=== PATIENT | male | born 1960 | race Caucasian/White ===

== ENCOUNTER → 2017-09-14 14:57 | Outpatient (POV) | payer BC, SELFPAY | PROVIDERS: Family Provider Family Medicine; Visit Provider Internal Medicine | DX: Z00.00 Encounter for general adult medical examination without abnormal findings (principal) ==

== ENCOUNTER → 2017-10-21 13:15 | Outpatient (CLI) | payer BC, SELFPAY ==
--- NOTE | 2017-10-21 13:21 | CT_ITS ---
CT lung screening EXAM: CT LUNG LOW DOSE WO CONTRAST HISTORY: 56-year-old male with 50 pack-year smoking history asymptomatic ITS.REASON: NICOTINE DEPENDENCE ORDERING PHYSICIAN: Tony Espino MD PATIENT AGE: 56 years COMPARISON: None TECHNIQUE: The exam was performed on a GE Light Speed [address] scanner using 2.90 mGy CTDI. A low dose helical CT CHEST was performed on a multi-detector scanner. All CT scans at the facility use one or more dose reduction, viz: automated exposure control; ma/kV adjustment per patient size (including targeted exams where dose is matched to indication; i.e. head); or iterative reconstruction technique. The LDCT was performed in a facility that meets the criteria for the screening program. Data regarding this exam was submitted to ACR which is an approved registry. The order for this exam indicates that it came as a result of a lung cancer screening counseling shard decision-making visit that included all the elements required of such a visit including smoking cessation. The radiologist interpreting this exam meets the CMS criteria for the LDCT lung cancer screening program. The exam is reported using the Lung-RADS classification scale and reported to the ACR registry. NOTE: This study was performed for the specific purposes of lung cancer screening and is not an alternative to diagnostic chest CT. RADIATION DOSE: CTDI vol(CT dose Index-volume) = 2.90mG DLP (Dose Length Product) = 122.72 mGcm FINDINGS: Centrilobular and paraseptal is present with its changes are present. Biapical fibrotic changes are noted. 3 mm nodular density left upper lobe unchanged. 3 mm fissural nodule along the left unchanged. No suspicious nodules infiltrates or effusions. There are coronary artery calcifications. Upper abdominal images show multiple isodensity is of the liver which may be due to cyst unchanged there is some increased density in the gallbladder which may be swelling than sludge and may be better evaluated with ultrasound if clinically warranted IMPRESSION: 1. Lung RADS Category: 2, benign 2. Other findings: Paraseptal and centrilobular emphysema with scattered areas of fibrosis, coronary artery disease, possible cholelithiasis RECOMMENDATIONS: 12 month LDCT follow-up
[2017-10-21 14:25] VITALS: PULSE 77
== END ==
PROVIDERS: Family Provider Family Medicine; PCP Family Medicine; Visit Provider Internal Medicine
DX: Z87.891 Personal history of nicotine dependence (principal); Z12.2 Encounter for screening for malignant neoplasm of respiratory organs; J42 Unspecified chronic bronchitis; F17.210 Nicotine dependence, cigarettes, uncomplicated
CPT/HCPCS: 94060; 94640

== ENCOUNTER → 2018-02-01 14:21 | Outpatient (POV) | payer BC, SELFPAY | PROVIDERS: Family Provider Family Medicine; PCP Family Medicine; Visit Provider Internal Medicine | DX: Z00.00 Encounter for general adult medical examination without abnormal findings (principal) ==

== ENCOUNTER → 2018-03-11 14:15 | Outpatient (CLI) | payer BC, SELFPAY ==
--- NOTE | 2018-03-11 14:22 | XR_ITS ---
EXAM: XR cervical spine 5V HISTORY: Neuropathy ITS.REASON: SYSTEMIC LUPUS ERYTHEMATOSUS ORDERING PHYSICIAN: Jovita Nugent MD PATIENT AGE: 57 years COMPARISON: None FINDINGS: There is slight reversal of the cervical lordosis which may be due to patient positioning or muscle spasm. There is 2 mm anterolisthesis of C3 on C4. Prominent anterior bridging osteophytes are present at C4, C5, C6, C7, and T1 consistent with DISH. Mild degenerative disc disease is present from C3 to T1. Uncovertebral hypertrophy is present with foraminal narrowing on the right at C5-C6 and on the left from C3 to T1. There are old fractures involving the anterior aspect of the right first and second ribs. No lytic or blastic change. No fracture or dislocation. IMPRESSION: Degenerative disc disease with uncovertebral arthrosis and foraminal narrowing. DISH of the cervical spine
== END ==
PROVIDERS: PCP Family Medicine; Visit Provider Family Medicine
DX: M32.9 Systemic lupus erythematosus, unspecified (principal)
CPT/HCPCS: 72050

== ENCOUNTER → 2018-03-21 08:59 | Outpatient (POV) | payer BC, SELFPAY | PROVIDERS: Visit Provider Specialist | DX: R29.898 Other symptoms and signs involving the musculoskeletal system (principal) | CPT/HCPCS: 95886; 95910 ==

== ENCOUNTER → 2018-08-15 12:59 | Outpatient (POV) | payer BC, SELFPAY | PROVIDERS: Visit Provider Internal Medicine | DX: Z00.00 Encounter for general adult medical examination without abnormal findings (principal) ==

== ENCOUNTER → 2018-10-21 13:23 | Outpatient (CLI) | payer BC, SELFPAY ==
--- NOTE | 2018-10-21 13:28 | CT_ITS ---
CT lung screening EXAM: CT LUNG LOW DOSE WO CONTRAST HISTORY: 40 pack-year smoking history, asymptomatic for lung cancer ITS.REASON: H/O NICOTINE DEPENDENCE ORDERING PHYSICIAN: Tony Espino MD PATIENT AGE: 57 years COMPARISON: 10/21/2017 TECHNIQUE: The exam was performed on a GE Light Speed [address] scanner using 2.90 mGy CTDI. A low dose helical CT CHEST was performed on a multi-detector scanner. All CT scans at the facility use one or more dose reduction, viz: automated exposure control, ma/kV adjustment per patient size (including targeted exams where dose is matched to indication, i.e. head), or iterative reconstruction technique. The LDCT was performed in a facility that meets the criteria for the screening program. Data regarding this exam was submitted to ACR which is an approved registry. The order for this exam indicates that it came as a result of a lung cancer screening counseling shard decision-making visit that included all the elements required of such a visit including smoking cessation. The radiologist interpreting this exam meets the CMS criteria for the LDCT lung cancer screening program. The exam is reported using the Lung-RADS classification scale and reported to the ACR registry. NOTE: This study was performed for the specific purposes of lung cancer screening and is not an alternative to diagnostic chest CT. RADIATION DOSE: CTDI vol(CT dose Index-volume) = 2.90mG DLP (Dose Length Product) = 118.81 mGcm FINDINGS: Paraseptal and centrilobular emphysema with COPD. Scattered areas of parenchymal scarring once again noted. There are coronary artery calcifications. No suspicious nodules are evident. No central obstructing lesions.. There are multiple isodense areas of the liver which may be due to cysts. The largest area noted on the previous exam is no longer apparent which was in the left hepatic lobe and measures 1.6 cm. Other smaller isodense regions are stable. IMPRESSION: 1. Lung RADS Category: 2, benign 2. Other findings: COPD, centrilobular paraseptal emphysema, coronary artery disease, hepatic cysts RECOMMENDATIONS: 12 month LDCT follow-up
== END ==
PROVIDERS: PCP Family Medicine; Visit Provider Internal Medicine
DX: Z12.2 Encounter for screening for malignant neoplasm of respiratory organs (principal); Z87.891 Personal history of nicotine dependence

== ENCOUNTER → 2019-09-20 12:50 | Outpatient (CLI) | payer BC, SELFPAY ==
--- NOTE | 2019-09-20 12:58 | CA_ITS ---
APPROVED REPORT Right Lower Extremity Venous Study for DVT. Oyster Farmer: JOE MataT Indications Lower Extremity Pain: Right Lower Extremity Edema: Right Pt had rt knee replaced early September, incision is not healing,Pt has lupus Risk Factors Current Smoker Vein Imaging CFV (R): compressive, spontaneous, phasic, augmentation FEM (R): compressive, spontaneous, phasic, augmentation POP (R): compressive, spontaneous, phasic, augmentation PTV (R): Compressible, Compressible GSV (R): Compressible Peroneals (R):Compressible GAS (R): Compressible Conclusion Study suggests no evidence of DVT of the right lower extremity. Study suggests no evidence of SVT of the right lower extremity. 3.6 cm lymph node seen right groin. Electronically signed by : Yung Almodovar MD 09/20/2019 16:34:05
== END ==
PROVIDERS: PCP Family Medicine; Visit Provider Family Medicine
DX: M79.604 Pain in right leg (principal)
CPT/HCPCS: 93971

== ENCOUNTER → 2020-08-14 13:59 | Outpatient (CLI) | payer MEDICARE, BC, SELFPAY | PROVIDERS: PCP Family Medicine; Visit Provider Urology | DX: F17.200 Nicotine dependence, unspecified, uncomplicated (principal); I50.9 Heart failure, unspecified; J44.9 Chronic obstructive pulmonary disease, unspecified; K21.9 Gastro-esophageal reflux disease without esophagitis; R00.0 Tachycardia, unspecified; R00.2 Palpitations; R06.00 Dyspnea, unspecified | CPT/HCPCS: 93270 ==

== ENCOUNTER → 2020-08-22 10:41 | Outpatient (CLI) | payer MEDICARE, BC, SELFPAY ==
--- NOTE | 2020-08-22 10:43 | CA_ITS ---
APPROVED REPORT EXAM: Comprehensive 2D, Doppler, and color-flow Echocardiogram Manager Plan: Aida Mackenzie RVT Ht: 6 ft 1 in Wt: 186lbs BSA: 2.09 BP: 147/81 mmHg Indications: SOA,CHF,GERD.SMOKER.ANDERSON,PALPS,COPD,TACHYCARDIA 2D Dimensions LVOT 2.10 cm (M/F) 1.5-2.5 LA Volume 18.50 mL LA Volume Index 8.89 mL/m2 (M/F) 16-34 M-Mode Dimensions RVDd 2.11 cm (0.9-2.6) LA Diam 3.39 cm (1.9-4.0) LVDd 4.43 cm (3.5-5.7) Ao Diam 3.10 cm (2.0-3.7) LVDs 3.11 cm (3.5-5.7) IVSd 1.75 cm (0.6-1.1) PWd 0.61 cm (0.6-1.1) EF (Teich) 57.10% FS 29.80% EDV (Teich) 89.10 mL ESV (Teich) 38.20 mL LV Diastology E Decel Time 203.00 (160-240 msec) E/A Ratio 0.8 MED E' 6.60 (< 7 cm/sec) E'/MED E' Ratio 10.14 (>14) LAT E' 8.50 (<10 cm/sec) E/LAT E' Ratio 7.87 (>14) Mitral Valve MV E Max Shalom. 67.00 (40-130 cm/s) MV A Velocity 85.00 (40-130 cm/s) E/A Ratio 0.79 MV Decel. Time 203.00 (160-240 ms) MV PHT 60.00 ms Pulmonary Valve PV Peak Velocity 95.00 (50-150 cm/s) Tricuspid Valve TR P. Velocity 207.00 cm/s RAP Estimate 10.00 mmHg RVSP 27.10 mmHg Left Ventricle Left atrium is mildly enlarged, left ventricle is normal size, mild concentric left ventricular hypertrophy, visually estimated ejection fraction 55% with no regional wall motion abnormality, grade 1 diastolic dysfunction seen without tissue Doppler evidence of raise left atrial pressure. Right Ventricle Right atrium and right ventricle are normal size and contractility. Aortic Valve Aortic valve is minimally thickened and fibrosed, there is no aortic stenosis or aortic insufficiency. Mitral Valve Mitral valve is grossly normal, there is trace mitral regurgitation. Tricuspid Valve Tricuspid grossly normal, there is trace tricuspid regurgitation, tricuspid regurgitation jet velocity is inadequate for calculation of the right ventricular systolic pressure. Pulmonic Valve Pulmonic valve is poorly visualized. Great Vessels Aortic root is normal size. Pericardium No significant pericardial effusion noted. Conclusion 1. Normal left ventricular size, mild concentric left ventricular hypertrophy, visually estimated ejection fraction 55% with no regional wall motion abnormality, grade 1 diastolic dysfunction seen without tissue Doppler evidence of raise left atrial pressure. 2. Trace mitral and tricuspid regurgitation. 3. No significant pericardial effusion noted. Electronically signed by : Tej Garcia, 08/22/2020 15:29:07
--- NOTE | 2020-08-22 11:15 | NM_ITS ---
APPROVED REPORT Exam: Nuclear Stress Test Indication: CHF, COPD, TOB USE, TACHYCARDIA, PALPITATIONS, DYSPNEA, FATIGUE Patient Location: Outpatient Stress Tech: Shannan Tavaresnkson [place] Tech:BRE Salmon RT(R)(N) Ht: 6 ft 1 in Wt: 192 lbs HR: 92 bpm BP: 128/81 mmHg BSA: 2.11 m2 BMI: 25.3 History: CHF, COPD, TOB USE, TACHYCARDIA, PALPITATIONS, DYSPNEA, FATIGUE Procedure: Patient received a 0.4 mg of intravenous Lexiscan, resting heart rate 92 bpm, resting blood pressure 128/81 mmHg, with Lexiscan maximum heart rate achived was 104 bpm which is Less than 85 % of the maximum predicted heart rate and blood pressure was 133/78 mmHg. With Lexiscan, patient denied any complaint of chest pain. Electrocardiogram Resting electrocardiogram shows sinus rhythm nonspecific ST-T changes, with Lexiscan there is less than 1.[address] segment depression noted from the baseline EKG. The EKG portion of the Lexiscan is nondiagnostic. Cardiac Stress and Resting SPECT Images: Cardiac Stress and Resting SPECT images were obtained using technetium 99m Myoview 32.9 mCi stress and 11.23 mCi at rest. Gated SPECT for analysis of segmental wall motion and calculation of the ejection fraction also done, prone images were also obtained. Cardiac stress and resting SPECT images show uniform myocardial activity without segmental perfusion abnormality, computer derived ejection fraction is 56% with no regional wall motion abnormality, right ventricle is normal size and contractility. Conclusion: 1. The EKG portion of the Lexiscan is nondiagnostic. 2. No scintigraphic evidence of reversible ischemia seen, computer derived ejection fraction 56% with no regional wall motion abnormality, right ventricle is normal size and contractility. 3. Normal Lexiscan Myoview study. Electronically signed by : Tej Garcia, 08/22/2020 15:43:48
--- NOTE | 2020-08-22 13:10 | CA_ITS ---
APPROVED REPORT Exam: Pharmacologic Technologist: Stephie Dickerson, Ht: 6 ft 1 in Wt: 184 lbs BSA: 2.08 m2 HR: 92 bpm BP: 128/81 mmHg Rhythm: NSR Indications: SOA, CHF Medical History Medical History: HTN, Smoking Medications: Lorazepam,,,,, Omeprazole,,,,, Spiriva,,,,, Gabapentin,,,,, Albuterol,,,,, Ibuprofen,,,,, Hydroxychloroquine,,,,, NifEDIPINE,,,,, Furosemide,,,,, Allergies: No known drug allergies Cardiac Risk Factors: FHX of CAD, Smoking Stress Test Details Test: LEXISCAN HR Resting HR: 93 bpm Max Heart Rate (APMHR): 159.201865 bpm Max HR Achieved: 106 bpm Target HR (85% APMHR): 135.979390 bpm % of APMHR: 66.67 Recovery HR: 93 bpm BP Resting BP: 128/81 mmHg Max BP: 137/83 mmHg Recovery BP: 132.0/74.0 mmHg ECG Clinical Exercise duration: 04:01 min Highest Stage Achieved: Stress ECG Conclusion PT BECAME SOA, MALAISE, AND GOT A TOBIN. NO CP. NO ARRHYTHMIAS. NO SIGNIFICANT ST-T CHANGES. UNREMARKABLE LEXISCAN STRESS. MYOVIEW IMAGES REPORTS SEPARATELY. Electronically signed by : Tej Garcia, 08/22/2020 15:39:35
== END ==
PROVIDERS: PCP Family Medicine; Visit Provider Urology
DX: F17.200 Nicotine dependence, unspecified, uncomplicated (principal); I50.9 Heart failure, unspecified; J44.9 Chronic obstructive pulmonary disease, unspecified; K21.9 Gastro-esophageal reflux disease without esophagitis; R00.0 Tachycardia, unspecified; R00.2 Palpitations; R06.00 Dyspnea, unspecified
CPT/HCPCS: 78452; 93017; 93306; A9502; J2785

== ENCOUNTER → 2020-12-12 07:17 | Outpatient (CLI) | payer MEDICARE, BC, SELFPAY ==
--- NOTE | 2020-12-12 07:17 | CT_ITS ---
PROCEDURE: CT LUNG SCREENING CLINICAL INDICATION: lung cancer screening Current smoker 30 pack year smoking history COMPARISON: CR,CT LUNGSCREEN CT lung screening from 10/21/[address] lung screening from 10/21/2018 CT PE PROTOCOL (ANGIO CHEST) from 04/25/2020 TECHNIQUE: The exam was performed on a [employer] Speed [address] scanner using 2.90 mGy CTDI. A low dose helical CT CHEST was performed on a multi-detector scanner. All CT scans at the facility use one or more dose reduction, viz: automated exposure control, ma/kV adjustment per patient size (including targeted exams where dose is matched to indication, i.e. head), or iterative reconstruction technique. The LDCT was performed in a facility that meets the criteria for the screening program. Data regarding this exam was submitted to ACR which is an approved registry. The order for this exam indicates that it came as a result of a lung cancer screening counseling shard decision-making visit that included all the elements required of such a visit including smoking cessation. The radiologist interpreting this exam meets the CMS criteria for the LDCT lung cancer screening program. The exam is reported using the Lung-RADS classification scale and reported to the ACR registry. NOTE: This study was performed for the specific purposes of lung cancer screening and is not an alternative to diagnostic chest CT. RADIATION DOSE: CTDI vol(CT dose Index-volume) = 2.90mG DLP (Dose Length Product) = 120.89 mGcm FINDINGS: COPD with scattered areas of scarring with paraseptal and centrilobular emphysema with scattered areas of scarring. No suspicious pulmonary nodule apparent. Scattered blebs are present which are slightly more prominent. No effusions or infiltrates. Previous outside exam demonstrated small bilateral effusions and interstitial edema which has resolved. OTHER FINDINGS: Coronary artery calcifications. There are scattered hepatic hypodensities suggesting hepatic cysts. IMPRESSION: Lung-RADS Category 2 Benign Appearance or Behavior Follow-up: Continue annual screening with LDCT in 12 months Dictated by: Yung Almodovar MD 12/16/2020 09:18 Yung Almodovar MD in [place] 12/16/2020 09:18
== END ==
PROVIDERS: PCP Family Medicine; Visit Provider Internal Medicine Pulmonary Disease
DX: Z87.891 Personal history of nicotine dependence (principal); Z12.2 Encounter for screening for malignant neoplasm of respiratory organs; R06.02 Shortness of breath
CPT/HCPCS: 71271; 94060; 94618; 94726; 94729

== ENCOUNTER → 2021-12-15 12:44 | Outpatient (CLI) | payer MEDICARE, BC, SELFPAY ==
--- NOTE | 2021-12-15 12:44 | CT_ITS ---
FINAL REPORT CLINICAL HISTORY: lung cancer screening 1.5ppd x40 years COMPARISON: 12/12/2020 FINDINGS: Low-Dose Chest CT CTDI vol (mGy): 2.90 DLP (mGy-cm): 107.59 Axial images were obtained from the lung apex to the mid abdomen by computed tomography. Low-dose protocol was utilized. FINDINGS: CHEST: There is no axillary adenopathy. There is no hilar or mediastinal adenopathy. There is severe coronary artery calcification. The heart is proper size. There is no pericardial or pleural effusion. Limited images of the upper abdomen demonstrate several less than 1 cm low-attenuation masses in the liver that cannot be accurately characterized but may represent small cysts. Lung window images demonstrate mild changes of emphysema and mild scarring. There is a 3 mm lateral left upper lobe nodule on image 29 that is stable. There is a stable 4 mm nodule in the lateral right upper lobe on image 25. There are several other less than 5 mm pulmonary nodules. IMPRESSION: S modifier: Severe coronary artery calcification. Lung RADS category 2S. Recommend 12 month follow-up low-dose chest CT. Reviewed, Interpreted and Dictated by Jw Li III, MD Transcribed by Priyank Chapman Authenticated and [facility]
== END ==
PROVIDERS: PCP Family Medicine; Visit Provider Internal Medicine Pulmonary Disease
DX: Z87.891 Personal history of nicotine dependence (principal); Z12.2 Encounter for screening for malignant neoplasm of respiratory organs
CPT/HCPCS: 71271

== ENCOUNTER → 2022-12-31 10:38 | Outpatient (CLI) | payer MEDICARE, SELFPAY ==
--- NOTE | 2022-12-31 10:39 | CT_ITS ---
FINAL REPORT CLINICAL HISTORY: lung cancer screening current smoker 2.5ppd x25 years COMPARISON: 12/15/2021 FINDINGS: CT CHEST LOW DOSE SCREENING HISTORY: Screening exam for lung cancer. Current smoker, 37 pack year smoking history DOSE: CTDIvol: 2.9 mGy, DLP: 106.55 mGy*cm COMPARISON: 12/15/2021. TECHNIQUE: Axial CT without IV contrast administration using low dose protocol FINDINGS: Dense coronary artery calcifications are again noted. Centrilobular emphysema is once again identified as well. There is a left upper lobe nodule seen best on axial image #28 of series 4, stable. There is a peripheral right upper lobe nodule that is slightly more linear than noted on the previous exam, a finding of uncertain significance. This may represent post inflammatory change. No pleural or pericardial effusion is seen . No adenopathy or mass lesion is present . IMPRESSION: Stable LDCT compared with prior exam of 2021. LUNG RADS CATEGORY 2S The S classification is given for severe coronary artery calcifications. RECOMMENDATION: 12 month LDCT follow up Reviewed, Interpreted and Dictated by Florin Clemens MD Transcribed by Kailee Weston Authenticated and [facility]
== END ==
PROVIDERS: PCP Family Medicine; Visit Provider Internal Medicine Pulmonary Disease
DX: Z87.891 Personal history of nicotine dependence (principal); Z12.2 Encounter for screening for malignant neoplasm of respiratory organs
CPT/HCPCS: 71271

== ENCOUNTER 2024-01-03 15:17 | Outpatient (CLI) | payer MEDICARE, SELFPAY ==
--- NOTE | 2024-01-03 15:18 | CT_ITS ---
FINAL REPORT TECHNIQUE: Thin section axial images were obtained from the lung apices to the upper abdomen by computed tomography. Reformatted images were obtained and reviewed. This study was performed with techniques to keep radiation doses al low as reasonably achievable (ALARA). Individualized dose reduction techniques using automated exposure control or adjustment of mA and/or kV according to the patient's size were employed. CLINICAL HISTORY: lung cancer screening smoker for 25 yrs, 2 packs per day h/o of lung cancer in first degree relative (brothers) COMPARISON: 12/31/2022 FINDINGS: CHEST CT LOW DOSE 63-year-old male, current smoker, 44-mbjt-cluj history CTDI vol (mGy): 2.9 DLP (mGy-cm): 115.94 There is no axillary adenopathy. There is no mediastinal or hilar mass or adenopathy. The heart is normal in size. Dense coronary artery calcifications are present. There is no pericardial or pleural effusion. There is mild emphysema and mild pulmonary scarring. Lung window images demonstrate a stable left upper lobe nodule best seen on image #33 of series 4. There is a new 7 mm x 4 mm ovoid nodule in the peripheral right upper lobe best seen on image #29 of series 4. Limited images of the upper abdomen are unremarkable. IMPRESSION: Lung-RADS category 4A, for the new nodule in the peripheral right upper lobe, 7 x 4 mm. Recommend 3 month follow up low dose chest CT. Reviewed, Interpreted and Dictated by Florin Clemens MD Transcribed by Kailee Weston Authenticated and . [facility]
== END 2024-01-03 23:59 | disposition home or self-care (01) ==
LOC: RAD 15:18
PROVIDERS: PCP Family Medicine; Visit Provider Internal Medicine Pulmonary Disease
DX: F17.210 Nicotine dependence, cigarettes, uncomplicated (principal)
CPT/HCPCS: 71271

== ENCOUNTER 2024-08-18 06:05 | Day surgery (SDC) | payer MEDICARE, SELFPAY ==
[2024-08-15 16:48] VITALS: BMI 23.1
[2024-08-18 06:35] VITALS: BP 134/75; PULSE 108; RESP 18; TEMP 36.7; O2SAT 98
--- NOTE | 2024-08-18 06:37 | EXP.GEN.HP ---
HPI HPI HPI: Patient is a 63-year-old male with history of COPD, continued smoking, GERD, congestive heart failure. He presents for surveillance colonoscopy. I performed previous EGD and colonoscopy on him on 08/27/2006 for abdominal symptoms. He had some hyperplastic polyps. I had done a an upper endoscopy on him on 12/06/2012 which was relatively unremarkable. He had colonoscopy on 01/03/2013 at which time random biopsies were negative, he had some diverticulosis, and he had some hyperplastic polyps. I performed colonoscopy on 10/12/2017. There were noted to be some minimal prolapsing hemorrhoids, diverticulosis, and polyps. Pathology revealed cecal tubular adenoma, ascending colon tubular adenoma x 2, descending colon tubular adenoma sigmoid colon, proximal, tubular adenoma, several rectosigmoid hyperplastic polyps. After this colonoscopy on 10/12/2017 recommendations were for follow-up colonoscopy in 2 to 3 years due to at least 5 adenomatous polyps. [facility] Disclaimer: The information contained in this section may have been updated after the patient was seen, as this information can be updated by other users. Medical History Paraseptal emphysema History of smoking 30 or more pack years COPD (chronic obstructive pulmonary disease) Dyspnea on exertion Screening for lung cancer Pulmonary emphysema Tobacco abuse disorder Tobacco abuse counseling Smoking greater than 30 pack years Chest pain Palpitations Tobacco dependence syndrome Sinus tachycardia Gastroesophageal reflux disease CHF (congestive heart failure) COPD (chronic obstructive pulmonary disease) Dyspnea Surgical History History of arthroscopic knee surgery Family History Other Cancer Social History Smoking Status: Current every day smoker tobacco type: cigarettes alcohol intake: never counseling provided: none substance use type: denies use current occupational status: retired and other Travel in the last 8 weeks: None caffeine: Yes Have you lived/traveled outside [place] in past 30 days?: No Contact w/someone who lives/traveled outside US past 30 days?: No Exposure to someone with infectious disease in past 14 days?: No Do you have a fever (greater than 100.4 F or 38 C)?: No Have you tested positive for COVID-19: No Exposed to someone with COVID-19 in past 14 days?: No Do you have a sore throat?: No Do you have a cough?: No Do you have any weakness?: No Do you have any diarrhea?: No Are you experiencing any unusual bleeding?: No Do you have any muscle aches/pain?: No Do you have any abdominal pain?: No Are you experiencing loss of taste or smell?: No Other Medical History Have you received the Flu Vaccine for this season: No Have you received the Pneumonia Vaccine: Yes Review of Systems Review of Systems Review of systems:: pertinent systems reviewed and negative unless documented below Meds Home Medications and Allergies Home Medications ?Medication ?Instructions ?Recorded ?Confirmed ?Type hydroxychloroquine 200 mg tablet 200 mg PO DAILY lupus 10/11/17 08/18/24 History furosemide 40 mg tablet 40 mg PO DAILY 08/14/20 08/18/24 History gabapentin 600 mg tablet 600 mg PO TID 08/14/20 08/18/24 History ibuprofen 800 mg tablet 800 mg PO Q8H PRN Pain 08/14/20 08/18/24 History lorazepam 0.5 mg tablet 0.5 mg PO TID PRN Anxiety 08/14/20 08/18/24 History nifedipine 30 mg tablet,extended 30 mg PO DAILY #30 tabs 08/14/20 08/18/24 Rx release 24 hr (Procardia XL) omeprazole 20 mg capsule,delayed 20 mg PO DAILY 08/14/20 08/18/24 History release New Prescriptions to Start Prescriptions: Allergies Allergy/AdvReac Type Severity Reaction Status Date / Time No Known Allergies Allergy Verified 08/18/24 06:33 Exam Data for Last 24 hours I & O for Last 24 hours: Intake & Output 08/15/24 08/16/24 08/17/24 08/18/24 11:59 11:59 11:59 11:59 Weight 175 lb Constitutional Constitutional: no acute distress *Routine HEENT Exam Head: Present normocephalic Eye: Present EOMI and PERRL ENT: Present mucous membranes moist *Routine Neck Exam Neck: Present supple; Absent lymphadenopathy *Routine Respiratory Exam Respiratory: Present CTA bilaterally *Routine Cardiovascular Exam Cardiovascular: Present RRR *Routine Abdominal Exam Abdominal: Present soft and normoactive bowel sounds; Absent tenderness *Routine Rectal Exam Rectal:: deferred *Routine Genitalia Exam Genitalia:: deferred *Routine Extremities Exam Extremities: Absent cyanosis, clubbing or edema *Routine Skin Exam Skin: Present warm; Absent rash *Routine Neurological Exam Neurological: Present alert and oriented X3 Assessment and Plan *Assessment and plan (1) Tubular adenoma of colon: Status: Acute Category: Medical Code(s): D12.6 - Benign neoplasm of colon, unspecified Plan Given his history of numerous adenomatous polyps on colonoscopy in 2018 plan to proceed with colonoscopy
--- NOTE | 2024-08-18 06:59 | EXP.ANES.CKL ---
[facility] Disclaimer: The information contained in this section may have been updated after the patient was seen, as this information can be updated by other users. Medical History Paraseptal emphysema History of smoking 30 or more pack years COPD (chronic obstructive pulmonary disease) Dyspnea on exertion Screening for lung cancer Pulmonary emphysema Tobacco abuse disorder Tobacco abuse counseling Smoking greater than 30 pack years Chest pain Palpitations Tobacco dependence syndrome Sinus tachycardia Gastroesophageal reflux disease CHF (congestive heart failure) COPD (chronic obstructive pulmonary disease) Dyspnea Surgical History History of arthroscopic knee surgery Family History Other Cancer Social History Smoking Status: Current every day smoker tobacco type: cigarettes alcohol intake: never counseling provided: none substance use type: denies use current occupational status: retired and other Travel in the last 8 weeks: None caffeine: Yes Have you lived/traveled outside [place] in past 30 days?: No Contact w/someone who lives/traveled outside [place] past 30 days?: No Exposure to someone with infectious disease in past 14 days?: No Do you have a fever (greater than 100.4 F or 38 C)?: No Have you tested positive for COVID-19: No Exposed to someone with COVID-19 in past 14 days?: No Do you have a sore throat?: No Do you have a cough?: No Do you have any weakness?: No Do you have any diarrhea?: No Are you experiencing any unusual bleeding?: No Do you have any muscle aches/pain?: No Do you have any abdominal pain?: No Are you experiencing loss of taste or smell?: No [facility] Anesthesia Checklist Patient Identification Patient Identification: Arm Band Structural Data Admitted From: Home Planned Operative Procedure/s: Colonscopy Verified Documents: Surgical Consent and History and Physical NPO Status Verified Time NPO: 00:00 Additional verifications Anesthesia Reactions: No Airway Assessment Mallampati Score:: Class II Neurological Assessment Level of Consciousness: Awake, Alert and Appropriate Hx Seizures: No Anesthesia Plan Anesthesia Risk discussed: Yes Anesthesia Plan: Verified ASA Class: II Anesthesia Type: MAC
[2024-08-18 07:04] VITALS: O2SAT 97
[2024-08-18 07:45] VITALS: BP 86/57; PULSE 100; RESP 16; TEMP 36.6; O2SAT 94
--- NOTE | 2024-08-18 07:45 | P.PCN_ITS ---
Procedure: Date: 08/18/24 Patient Date of :: 1960 Procedure Performed:: Total colonoscopy to terminal ileum with polypectomy using biopsy Indications:: Patient is a 63-year-old male with history of COPD, continued smoking, GERD, congestive heart failure. He presents for surveillance colonoscopy. I performed previous EGD and colonoscopy on him on 08/27/2006 for abdominal symptoms. He had some hyperplastic polyps. I had done a an upper endoscopy on him on 12/06/2012 which was relatively unremarkable. He had colonoscopy on 01/03/2013 at which time random biopsies were negative, he had some divertic ulosis, and he had some hyperplastic polyps. I performed colonoscopy on 10/12/2017. There were noted to be some minimal prolapsing hemorrhoids, diverticulosis, and polyps. Pathology revealed cecal tubular adenoma, ascending colon tubular adenoma x 2, descending colon tubular adenoma sigmoid colon, proximal, tubular adenoma, several rectosigmoid hyperplastic polyps. After this colonoscopy on 10/12/2017 recommendations were for follow-up colonoscopy in 2 to 3 years due to at least 5 adenomatous polyps. . Performing Provider:: Jw Mendez MD Referring Provider:: Ralph Nugent MD Sedation:: MAC sedation Procedure:: Patient history was obtained and appropriate physical examination was performed. Patient's medications and allergies were reviewed. Informed consent was obtained after explaining the benefits, alternatives, and risks of the procedure including, but not limited to, bleeding, perforation, missed lesions, and adverse reaction to anesthesia medications. Patient was transported to endoscopy procedure room. Patient was connected to monitoring devices. Throughout the procedure the patient's blood pressure, pulse, and oxygen saturations were monitored continuously. Patient i dentification and planned procedure were verified by the staff. Patient was positioned in lateral decubitus position. Digital anorectal exam was performed. Variable stiffness Olympus colonoscope was inserted and advanced under direct visualization to the cecum. Adequacy of the colonic preparation was noted. The colonoscope was advanced a short distance into the terminal ileum. The colonoscope was then slowly withdrawn while carefully examining the color, texture, anatomy, and integrity of the mucosoa circumferentially. Within the rectum retroflexion was performed. Colonoscope was then withdrawn. Impression: Colonic preparation was good. Ileocecal valve and appendiceal orifice were clearly identified. Terminal ileum normal. As the colonoscope was withdrawn he was noted to have some degree of pandiverticulosis. This is more pronounced in the sigmoid colon. The descending colon there was a punctate area of irregularity, likely inconsequential, removed with biopsy forceps. Just distal to this there was another punctate area which may represent early adenomatous polyp removed with biopsy forceps. In the rectosigmoid area there were a couple of diminutive polyps removed with biopsy forceps. There was a tiny diminutive polyp within the rectum removed with biopsy forceps. Retroflexion revealed some mild prolapsing internal hemorrhoids. . Findings:: Diverticulosis Tiny diminutive polyps as noted above Punctate area of erythema descending colon, likely inconsequential, biopsied Minimal prolapsing internal hemorrhoids Recommendations:: Repeat colonoscopy pending pathology Complications:: None immediately apparent Estimated blood obtained (mL): 1 Colonoscopy Component Colonoscopy Component Was a colonoscopy performed during today's procedure?: Yes Recommended follow up colonoscopy of at least 10 years?: No If no, follow up colonoscopy recommended in ___ years?: See above Reason for not recommending >/= 10 yr follow-up interval?: See above
[2024-08-18 07:55] VITALS: BP 103/56; PULSE 72; RESP 16; O2SAT 96
[2024-08-18 08:05] VITALS: BP 94/57; PULSE 68; RESP 16; O2SAT 97
[2024-08-18 08:15] VITALS: BP 98/46; PULSE 71; RESP 16; O2SAT 94
== END 2024-08-18 08:24 | disposition home or self-care (01) ==
PROVIDERS: PCP Family Medicine; Visit Provider Surgery
PROC: 0DJD8ZZ Inspection of Lower Intestinal Tract, Via Natural or Artificial Opening Endoscopic (ICD-10-PCS; CPT 45380; principal; 2024-08-18 07:30)
DX: K57.30 Diverticulosis of large intestine without perforation or abscess without bleeding (principal); K63.5 Polyp of colon; K62.1 Rectal polyp; K64.8 Other hemorrhoids; Z86.0101 Personal history of adenomatous and serrated colon polyps
CPT/HCPCS: 45380; J2704

== ENCOUNTER 2024-11-02 10:46 | Outpatient (CLI) | payer MEDICARE, SELFPAY ==
--- OUTSIDE RECORDS SUMMARY | 2024-09-25 10:01 | XMS_ITS | Encounter Summary ---
Author Organization [facility] Address [address] [place] [address] Care Team Providers Care Drilling Contractor Name Role Phone Dario Nugent MD Primary Care Provider [phone] Reason for Referral * Consultation (Routine) - New Request Specialty Diagnoses / Procedures Referred By Keiko archibald Referred To Contact Home Health Services Diagnoses Femur fracture, left (HCC) Mooes Granda MD [address] [facility] [address] [place] [address] Phone: tel: fax: Referral ID Status Reason Start Date Expiration Date Visits Requested Visits Authorized [id number] New Request Specialty Services Required 09/25/2024 09/25/2025 1 1 Reason for Visit * Auth/Cert (Routine) Specialty Diagnoses / Procedures Referred By Keiko archibald Referred To Contact Diagnoses Femur fracture, left (HCC) FRACTURE [facility] [address] [place] [address] Phone: tel: fax: [facility] [address] [place] [address] Phone: tel: fax: Referral ID Status Reason Start Date Expiration Date Visits Re quested Visits Authorized [id number] 1 1 Encounter Details Date Type Department Care Team (Late st Contact Info) Description 09/25/2024 10:01 AM EDT - 09/29/2024 5:45 PM EDT Hospital Encounter [facility] [address] [place] [address] Moose Granda MD [address] [place] [address] [phone] Johnny Stacy MD [address] [place] [phone] Sourav Corbett DO [address] [place] [id number] Femur fracture, left (HCC) (Primary Dx) Discharge Disposition: Retirement Facility Social History Tobacco Use Types Packs/Day Years Used Date Smoking Tobacco: Every Day Cigarettes Smokeless Tobacco: Never Alcohol Use Standard Drinks/Week Comments Yes 35 (1 standard drink = 0.6 oz pu re alcohol) drinks beer and whiskey Utilities Answer Date Recorded In the past 12 months, has t he electric, gas, oil, or water company threatened to shut off services in your home? No 09/25/2024 Interpersonal Safety Answer Date Record ed How often does anyone, varun mora family and friends, physically hurt you? Never 09/25/2024 How often does anyone, varun mora family and friends, insult or talk down to you? Never 09/25/2024 How often does anyone, varun mora family and friends, threaten you with harm? Never 09/25/2024 How often does anyone, varun mora family and friends, scream or curse at you? Never 09/25/2024 Housing Stability Answer Date Recorded What is your living situation today? I have a [facility] place to live 09/25/[address] you li ve. Do you have problems with any of the following? None of the above 09/25/2024 Food Insecurity Answer Date Recorded Within the past 12 months, y ou worried that your food would run out before you got money to buy more. Never true 09/25/2024 Within the past 12 months, t he food you bought just didn't last and you didn't have money to get more. Never true 09/25/2024 Transportation Needs Answer Date Record ed In the past 12 months, has l ack of reliable transportation kept you from medical appointments, meetings, work or from getting things needed for daily living? No 09/25/2024 Financial Resource Strain Answer Date R ecorded How hard is it for you to pa y for the very basics like food, housing, medical care, and heating? Would you say it is: Not hard at all 09/25/2024 Employment Answer Date Recorded Do you want help finding or keeping work or a job? I do not need or want help 09/25/2024 Family and Community Support Answer Denton e Recorded If for any reason you need h elp with day-to-day activities such as bathing, preparing meals, shopping, managing finances, etc., do you get the help you need? I don't need any help 09/25/2024 Feeling Lonely or Isolated 1 09/25 Educational Attainment Answer Date Hunter rded Do you speak a language other than Tristanian at [facility]? No 09/25/2024 Do you want help with school or training? For example, starting or completing job training or getting a high school diploma, GED or equivalent. No 09/25/2024 Physical Activity Answer Date Recorded Number of minutes of exercise per week 0 09/25/2024 Alcohol Use Answer Date Recorded 5 or More Drinks Per Day Past 12 Months 1 09/25/2024 Depression Answer Date Recorded Calculation of above two rows 4 Stress Answer Date Recorded Stress means a situation in which a person feels tense, restless, nervous, or anxious, or is unable to sleep at night because his or her mind is troubled all the time. Do you feel this kind of stress these days? A little bit 09/25/2024 Disabilities Answer Date Recorded Because of a physical, menta l, or emotional condition, do you have serious difficulty concentrating, remembering, or making decisions? (5 years or older) No 09/25/2024 Because of a physical, menta l, or emotional condition, do you have difficulty doing errands alone such as visiting a doctor's office or shopping? (15 years or older) No 09/25/2024 Substance Use Answer Date Recorded How many times in the past y ear have you used prescription drugs for non-medical reasons? Never 09/25/2024 How many times in the past year have you used [place] legal drugs? Never 09/25/2024 Sex and Gender Information Value Date Recorded Sex Assigned at Not on file Legal Sex Male 2:30 PM CDT Gender Identity Not on file Sexual Orientation Not on file documented as of this encounter Last Filed Vital Signs Vital Sign Reading Time Taken Comments Blood Pressure 125/53 09/29/2024 4:15 PM EDT Pulse 137 09/29/2024 4:15 PM EDT Temperature 37.9 C (100.2 F) 09/29/2024 4:15 PM EDT Respiratory Rate 18 09/29/2024 4:15 PM EDT Oxygen Saturation 95% 09/29/2024 10:45 AM EDT Inhaled Oxygen Concentration - - Weight 79.4 kg (175 lb) 09/26/2024 6:00 AM EDT Height 185.4 cm (6' 1 ) 09/26/2024 10:03 AM EDT Body Mass Index 23.09 09/26/2024 6:00 AM EDT documented in this encounter Discharge Summaries * Johnny Stacy MD - 09/29/2024 8:35 AM EDT Patient Name: Christian Castorena : 1960 Date of Admission: 09/25/2024 Date of Discharge: 09-29-24 Primary Care Physician: Dario Nugent MD Consultations: Discharge Diagnoses: Femur fracture, left (HCC) Left distal femur fracture, left distal femur periprosthetic fracture September 26, 2024. Retrograde nailing of the left distal femur periprosthetic fracture. Implants: Synthes 400 mm x 10 mm, 20 degree retrograde nail. 4 distal interlocking screws. 2 proximal interlocking screws Acute pain postoperative - Alcohol use disorder-moderate dependence Patient reports sixpack of beer at night Budweiser Thrombocytopenia Macrocytosis -MCV 114 -Hemoglobin 13.1 before surgery down to 10 down to 10 down to 9.5 -B12 level 285 low end of normal range so can just add B12 Fatty liver - Given that he mitts to drinking 6 beers a day with a low platelets and the elevated MCV I got ultrasound of the right upper quadrant - Ultrasound shows heterogeneous liver consistent with fatty infiltration but no cirrhosis and a normal size spleen COPD not in exacerbation Tobacco dependence Hypertension Lupus Loose BM -Likely secondary to stool softeners retrograde nailing of left distal femur periprosthetic fracture Reason for Admission: 63 y.o. male that presents to [facility] in transition of care from [facility] emergency department for left distal femur fracture that occurred approximately 2 AM in the morning after tripping on a rug, falling and identifying a snap to his left lower extremity. He presented tot ED and imaging identified left distal femur fracture. Orthopedics was contacted out of the ED and his care was transitioned to [facility]. Currently he reports pain 8 on a 1-10 pain scale sharp to his left lower extremity made worse with movement. He reports unable to bear weight but describes no other injuries or trauma. He specifically denies head or neck injury. He reports no associated retrosternal chest pain, dyspnea, palpitations, confusion or difficulty urinating. Hisadmission vitals identify that he is saturating 99% on room air. Hospital Course: left distal femur fracture Orthopedic consultation Fall precautions N.p.o. past midnight Pain control Parentally administered controlled substance for comfort care Bowel regimen Alcohol use disorder-moderate dependence Patient reports sixpack of beer at night Budweiser B12 level with macrocytosis on CBC [facility] protocol Seizure precautions Benzodiazepine therapy Gabapentin therapy Thiamine replacement therapy Multivitamin and folic acid replacement therapy COPD not in exacerbation Tobacco dependence Pulse oximetry monitoring Oxygen therapy to maintain appropriate oxygen saturations Currently oxygenating appropriately on room air Chest x-ray pending Rachele/Adithya inhalation therapy Tobacco cessation education Nicotine replacement therapy Hypertension Routine blood pressure monitoring Dihydropyridine calcium channel hermilo therapy Patient seen by orthopedic surgeon Dr. Chuy Johnson took the patient to the operating room on September 26. On September 28, 2024 he stated the following: Status post retrograde nailing of left distal femur periprosthetic fracture doing well Weight-bear as tolerated on walker at all times. PT OT. Recommend Lovenox daily x 3 weeks followed by aspirin daily x 3 months. Follow-up with me in 2 to 3 weeks. Okay to discharge from my perspective and I will set up follow-u Patient worked with physical therapy daily. On September 28 Darin Cohen with PT stated the following: progressing with somewhat improve standing and gait tolerance. Still requiring significant assistance. No goals met this session. Pt will continue to benefit from skilled PT. Problems: Decreased core stability, Decreased functional mobility, Decreased gait tolerance, Decreased strength, Decreased activity tolerance, Impaired standing balance, Impaired dynamic balance, Gait impairment, Restricted ROM, Pain Rehab potential: Good for stated goals Plan Treatment plan: Continue per POC. PT Frequency/Duration: 3x/week for 14 days Recommendations Discharge recommendations: Patient would benefit from 3 hours of intensive multidisciplinary therapy per day to maximize functional outcomes and address functional limitations to return to highest level of functioning., If the patient is declining/denied post-acute placement, patient would benefit from continued therapy services and supervision; see equipment recommendations for details DME recommendations: Unable to make recommendations at this time. Goals Supine to/from sit: Supine to sit min A to ease caregiver burden. Sit to/from stand: Sit to stand with RW and min A to ease caregiver burden. Gait: Ambulate 50ft with RW and min A to ease caregiver burden. Transfer: Stand step pivot transfer with RW min A to ease caregiver burden. Target Date: 10/11/2024 Progress towards goals: progressing Left distal femur fracture, left distal femur periprosthetic fracture Orthopedic consultation Fall precautions September 26, 2024. Retrograde nailing of the left distal femur periprosthetic fracture. Implants: Synthes 400 mm x 10 mm, 20 degree retrograde nail. 4 distal interlocking screws. 2 proximal interlocking screws Pain control Parentally administered controlled substance for comfort care Bowel regimen Acute pain postoperative -Gabapentin 300 mg 3 times a day Tylenol 1000 every 6 as needed Oxycodone 5 mg every 4. Oxycodone 10 mg every 6. Alcohol use disorder-moderate dependence Patient reports sixpack of beer at night Budweiser B12 level with macrocytosis on CBC [facility] protocol Seizure precautions Benzodiazepine therapy Gabapentin therapy Thiamine replacement therapy Multivitamin and folic acid replacement therapy -Macro cytosis MCV of 114. Consistent with heavy alcohol use may be more than 6 beers at night Thrombocytopenia -plt 106 -I bet he drinks more than 6 beers a day - Continue to watch closely if does not improve off of alcohol would consider a hematology consult,liver spleen scan Macrocytosis -MCV 114 -Hemoglobin 13.1 before surgery down to 10 down to 10 down to 9.5 -B12 level 285 low end of normal range so can just add B12 -Folate and thiamine replacement -B12 1000 mcg IM daily Folic acid 1 mg p.o. daily Fatty liver - Given that he mitts to drinking 6 beers a day with a low platelets and the elevated MCV I got ultrasound of the right upper quadrant - Ultrasound shows heterogeneous liver consistent with fatty infiltration but no cirrhosis and a normal size spleen - INR 1.0, ammonia normal at 22 -AST little bit elevated 41 and ALT of 34 COPD not in exacerbation Tobacco dependence Pulse oximetry monitoring Oxygen therapy to maintain appropriate oxygen saturations Currently oxygenating appropriately on room air Chest x-ray pending Rachele/Adithya inhalation therapy Tobacco cessation education Nicotine replacement therapy Hypertension Routine blood pressure monitoring Dihydropyridine calcium channel hermilo therapy Lupus Plaquenil 200 mg daily Loose BM -Likely secondary to stool softeners - Add Florastor VTE prophylaxis: Heparin Code Status: Full code POA: Daughter Medical decision making Thursday, September 26, 2024. Nice pleasant gentleman seen examined with nurse Tomas ROONEY at the bedside aswell as patient's very pleasant ex-. He states his ex- is his best friend and that she takes excellent care of him. She states their plan is for him to go home with her after he leaves here. Previously went to [facility] rehab with a knee replacement in the past. Is a very pleasant ex- does have a cast on her right wrist and she states she had surgery couple weeks ago. I have voiced to them my concern is if he goes home with her and then she is trying to help him and she has thisrisk they just had surgery and she could end up hurting herself. They are agreeable to looking and then exploring the idea of going to short-term rehab. They also have a grandchild that I think is close by and might be able to help. He states he had pretty good quality life before this episode happened. I told him without the case he might want to lean towards short-term rehab to try to get his strength back up to where he was because even if he gets home health at home which they are interested in generally talking about an hour a week or something like this. Labs drawn very early this morning at 242 shows a white count of 5 hemoglobin of 13, creatinine 1.2 he may have some chronic kidney disease. I will get a CBC tomorrow make sure that hemoglobin is relatively stable and that the creatinine is stable. He has macrocytosis MCV of 114 but he is drinking more than just 6 beers a day. Also his platelets are low at 106 this makes me think again more than 6 Budweiser cans a day so would you want a watch him pretty closely for DTs. I will go ahead and schedule IV thiamine and daily for now as well as IV B12. Wednesday, September 27, 2024. Nice pleasant gentleman seen examined with his ex- they are at the bedside. Labs drawn today hemoglobin dropped from 13 down to 10 postoperative notes very surprising platelets lower at 78 again could be secondary to surgery on top of his alcohol use possible bone marrow suppression from heavy alcohol use. He is getting folate thiamine and I have added a multivitamin daily. Also added B12 IM because the B12 was on the lower end of normal and he has a MCV of 118. Patient states he which [facility] in the past and it was a couple years ago and it was not the best experience would prefer to go someplace close to where most of his family is in [facility]. His ex- linda Jorge [facility] and he plans on going home with her after he leaves the rehab but for now he like to go to someplace closer to [facility]. Discussed with the medical case manager she is looking into it. Will get a CBC tomorrow obviously if the hemoglobin were to drop significantly more we would transfusehim and we have to watch the platelets as well. Given the list of liver issues I went and checked an ammonia was normal at 22 I checked an INR was normal at 1.0. I got a right upper quadrant ultrasound that showed heterogeneous liver no evidence of cirrhosis but he did have fatty infiltration. He also had a normal size spleen so that is good. September.Gentleman seen examined with nurse Candice at the bedside. Positive for loose bowel movement he has been getting stool softeners. Can go ahead and hold the stool softener it actually does change it to as needed so it is on his MAR if he gets constipated in the future. Will add Florastor. We cannot check for C. difficile as he is received multiple doses of stool softener including yesterday. Labs today pretty unremarkable white count from 7-5 hemoglobin decreased slightly from 10.3 down to 10.1. MCV improved from 118 down to 115, platelets increased from 78 up to 79, creatinine improved from 1.3 down to 1.2. AST stable at 43 up from 41 and ALT improved from 34 down to 32. We can get a CBC CMP in the morning hold stool softener add Florastor will consider adding Imodium if loose bowel movements continue. If pain postop but only got Tylenol 1 time yesterday. Morphine 4 mg not given yesterday but he received 1 dose this morning. Oxycodone 5 mg every 4 given one- time yesterday and the oxycodone 10 mg given 2 times yesterday and once this morning. I did asked the nurse to make sure he gets the IV pain medicine and the oral pain medicine before physical therapy so he is able to more actively participate. He also states that he is open to going to [facility] rehab and I encouraged him to consider it as they have many wonderful options. He states the last time he was there he felt like the nursesdid not come quickly enough when he called them. I told that is probably, to be honest, can to be an issue no matter where he goes so he should try to keep an open mind. Sunday, September 29, 2024. Nice pleasant gentleman seen with nurse Johnson at the bedside working with PT OT still with some loose bowel movements did tell him to take some time for the stool softener toget out of his system. Hemoglobin dropped minimally from 10 down to 9.5 AST ALT normalized. Plan togo to rehab later this afternoon. Up with primary care provider CBC and CMP. Also follow-up with orthopedic surgery in 2 weeks.. Studies Performed: Procedures Performed: procedure: September 26, 2024 Preoperative Diagnosis: Left distal femur periprosthetic fracture Postoperative diagnosis: Same Procedure performed: Retrograde nailing of left distal femur periprosthetic fracture Surgeon: Chuy Johnson MD Assistants: Courtney surgical assistant certified Anesthesia: General EBL: 200 mls Complications: None apparent Tourniquet time: Not used Implants: Synthes 400 mm x 10 mm, 20 degree retrograde nail. 4 distal interlocking screws. 2 proximal interlocking screws. Medications: 1 g of TXA was given at incision and closure. 2 g of Ancef was given prior to tourniquet inflation. Local anesthetic was injected in the subcutaneous tissues on closure. Indications for procedure: Mr. Castorena is a pleasant 63-year-old male who presented to the ER with a left distal femur periprosthetic fracture. Implant was stable based on imaging. Therefore I recommend a retrograde nailing of left distal femur periprosthetic fracture versus lateral plating. We discussed the indications, risk,benefits, alternatives recovery in detail. He knows that there is an elevated risk of nonunion withthese fractures. Other risks discussed include but not limited to bleeding, infection, pain, scarring, need for further procedure, malunion, nonunion, hardware failure/irritation, nerve/blood vessel/tendon injury, further fracture, knee stiffness, and the medical and anesthetic risk for surgery. He gave informed consent wished to proceed. Description of procedure: The patient was met in the preoperative holding area where the correct patient, side and site were confirmed. The left leg knee was marked with an indelible marker. With their permission they were brought back to the operating room where anesthesia was induced. They were positioned on the operatingroom table and all bony prominences were well-padded. The leg was prepped and draped in the usual sterile fashion. Preincisional antibiotics were given. A formal timeout was performed with all team members in the room to confirm the correct patient, side, site and procedure. We began by placing skeletal traction through the proximal tibia. Approximately 10 pounds of weightwas hung off the end of the table. The fracture was reduced over a triangle with towel bumps. Once good reduction was obtained we made a longitudinal incision through the skin and in line with the patellar tendon. Guide pin was placed in the center of the femoral canal and slightly posterior on thelateral. This was advanced. Opening reamer was used. Then passed a ball- tipped guidewire to the proximal femur. Nail was measured to be approximately 40 cm. We then reamed to an 11.5 mm reamer. Nail was then placed. This was locked with 4 distal interlocking screws as well as 2 proximal interlocking screws using perfect coeur d'alene technique. A locking cap was placed distally. The targeting guide was then removed. We took final fluoroscopy images in the AP and lateral plane to confirm good placementof hardware and fracture reduction. The incisions were thoroughly irrigated. Deep fascia was closed with #1 Vicryl's as well as #1 Vicryl's in the patellar tendon. 2-0 Vicryl in subcutaneous layer followed by antolin in the skin. Sterile bandages were placed followed by a large Vern wrap. At the end of the procedure all sponge needle and instrument counts were correct. The patient was awoken from anesthesia and taken to PACU in good condition. I was present and scrubbed for all vazquez aspects of the procedure. Postoperative plan: Weightbearing as tolerated on the operative extremity with a walker. We will consult PT and OT Early ambulation and SCDs will be applied for mechanical DVT prophylaxis. Chemical DVT prophylaxis will consist of Lovenox daily x 3 weeks followed by aspirin daily x 3 months Antibiotics will be continued for 23 hours postop. Follow-up in 2 weeks with me in the office. Discharge Medications: Your medication list START taking these medications Instructions Comments Quantity Refills acetaminophen 500 MG tablet Commonly known as: TYLENOL Take 2 tablets (1,000 mg total) by mouth every 6 (six) hours as needed for up to 10 days. 30 tablet 0 cyanocobalamin 500 MCG tablet Commonly known as: B-12 DOTS Take 2 tablets (1,000 mcg total) by mouth daily for 30 days. 60 tablet 0 enoxaparin 40 mg/0.4 mL Syrg Commonly known as: LOVENOX Inject 0.4 mLs (40 mg total) under the skin daily for 14 days. 5.6 mL 0 folic acid 1 MG tablet Commonly known as: FOLVITE Take 1 tablet (1 mg total) by mouth daily for 30 days. 30 tablet 0 gabapentin 300 MG capsule Commonly known as: NEURONTIN Replaces: gabapentin 600 MG tablet Take 1 capsule (300 mg total) by mouth 3 (three) times daily for 30 days. Max Daily Amount: 900 mg 90 capsule 0 nicotine 21 mg/24 hr patch Commonly known as: NICODERM CQ Place 1 patch on the skin daily for 30 days. 28 patch 0 NIFEdipine 30 MG (OSM) 24 hr tablet Commonly known as: PROCARDIA-XL Take 1 tablet (30 mg total) by mouth daily. 30 tablet 0 oxyCODONE 10 MG tablet Commonly known as: ROXICODONE Take 1 tablet (10 mg total) by mouth every 6 (six) hours as needed for up to 10 days Look-alike/Sound-alike medication. Max Daily Amount: 40 mg 20 tablet 0 Saccharomyces boulardii 250 mg capsule Commonly known as: Florastor Take 1 capsule (250 mg total) by mouth 2 (two) times daily for 7 days. 14 capsule 0 thiamine 100 mg Tab tablet Take 1 tablet (100 mg total) by mouth daily for 30 days. 30 tablet 0 CHANGE how you take these medications Instructions Comments Quantity Refills hydroxychloroquine 200 mg tablet Commonly known as: PLAQUENIL What changed: when to take this Take 1 tablet (200 mg total) by mouth daily for 30 days. 30 tablet 0 pantoprazole 40 MG tablet Commonly known as: PROTONIX What changed: medication strength how much to take Take 1 tablet (40 mg total) by mouth daily for 30 days. 30 tablet 0 CONTINUE taking these medications Instructions Comments Quantity Refills cholecalciferol (vitamin D3) 25 mcg (1,000 unit) capsule Take 1 capsule (1,000 Units total) by mouth daily. 0 LORazepam 0.5 MG tablet Commonly known as: ATIVAN Take 1 tablet (0.5 mg total) by mouth every 8 (eight) hours as needed for anxiety for up to 3 days.Max Daily Amount: 1.5 mg 9 tablet 0 STOP taking these medications furosemide 40 MG tablet Commonly known as: LASIX gabapentin 600 MG tablet Commonly known as: NEURONTIN Replaced by: gabapentin 300 MG capsule ibuprofen 800 MG tablet Commonly known as: MOTRIN Where to Get Your Medications These medications were sent to [facility] - [place], [place] - [address], [facility] [id number] acetaminophen 500 MG tablet cyanocobalamin 500 MCG tablet enoxaparin 40 mg/0.4 mL Syrg folic acid 1 MG tablet gabapentin 300 MG capsule hydroxychloroquine 200 mg tablet LORazepam 0.5 MG tablet nicotine 21 mg/24 hr patch NIFEdipine 30 MG (OSM) 24 hr tablet oxyCODONE 10 MG tablet pantoprazole 40 MG tablet Saccharomyces boulardii 250 mg capsule thiamine 100 mg Tab tablet Lovenox daily x 3 weeks followed by aspirin daily x 3 months . Vitals: 09/28/24200909/28/24 2025 09/28/24 2345 09/29/24 0445 BP: 129/69 (!) 142/68 109/52 Pulse: 101 102 99 Resp: 18 19 18 Temp: 98.2 ??F (36.8 ??C) 98.6 ??F (37 ??C) 98.4 ??F (36.9 ??C) TempSrc: SpO2: 95% 94% Weight: Height: Physical Exam Constitutional: General: He is not in acute distress. Appearance: Normal appearance. He is not toxic-appearing. HENT: Head: Normocephalic and atraumatic. Nose: No congestion or rhinorrhea. Eyes: General: No scleral icterus. Extraocular Movements: Extraocular movements intact. Pupils: Pupils are equal, round, and reactive to light. Cardiovascular: Rate and Rhythm: Normal rate and regular rhythm. Heart sounds: No murmur heard. Pulmonary: Effort: Pulmonary effort is normal. No respiratory distress. Breath sounds: Normal breath sounds. No wheezing. Abdominal: General: Bowel sounds are normal. There is no distension. Palpations: Abdomen is soft. Tenderness: There is no abdominal tenderness. There is no rebound. Musculoskeletal: General: No swelling or tenderness. Cervical back: Normal range of motion and neck supple. Right lower leg: No edema. Left lower leg: No edema. Comments: Post op left femur fx Skin: Capillary Refill: Capillary refill takes less than 2 seconds. Coloration: Skin is not jaundiced. Findings: No erythema. Neurological: General: No focal deficit present. Mental Status: He is alert and oriented to person, place, and time. Cranial Nerves: No cranial nerve deficit. Motor: No weakness. Psychiatric: Mood and Affect: Mood normal. Behavior: Behavior normal. Discharge Instructions Weightbearing as tolerated on the operative extremity with a walker. We will consult PT and OT Early ambulation and SCDs will be applied for mechanical DVT prophylaxis. Chemical DVT prophylaxis will consist of Lovenox daily x 3 weeks followed by aspirin daily x 3 months Antibiotics will be continued for 23 hours postop. Follow-up in 2 weeks with ortho in the office Discharge Diet: Advance as tolerated Discharge Activity: Advance per PT recommendations Discharge Follow UP: Contact information for follow-up Dario Nugent MD Specialty: Family Medicine Relationship: PCP - [facility] [address] [facility] [address] [facility] [address] [place] [address] Next Steps: Follow up in 2 week(s) Instructions: [facility] Chuy Johnson MD Specialty: Orthopedic Surgery [address] [place] [address] [address] [place] [address] Next Steps: Follow up in 10 day(s) Time Spent: 35 minutes spent on follow-up discharge delightful gentleman Than 50% time spent on counseling coordination Electronically signed by Johnny Stacy MD, 09/29/24, 10:37 AM EDT documented in this encounter Medications at Time of Discharge cholecalciferol, vitamin D3, 25 mcg (1,000 unit) capsule Take 1 capsule (1,000 Units total) by mouth daily. NIFEdipine (PROCARDIA-XL) 30 MG (OSM) 24 hr tablet Take 1 tablet (30 mg total) by mouth daily. 30 tablet 09/29/2024 09/29/2025 acetaminophen (TYLENOL) 500 MG tablet Take 2 tablets (1,000 mg total) by mouth every 6 (six) hours as needed for up to 10 days. 30 tablet 09/29/2024 10/09/2024 cyanocobalamin (B-12 DOTS) 500 MCG tablet Take 2 tablets (1,000 mcg total) by mouth daily for 30 days. 60 tablet 09/29/2024 10/29/2024 enoxaparin (LOVENOX) 40 mg/0.4 mL syrg Inject 0.4 mLs (40 mg total) under the skin daily for 14 days. 5.6 mL 09/29/2024 10/13/2024 folic acid (FOLVITE) 1 MG tablet Take 1 tablet (1 mg total) by mouth daily for 30 days. 30 tablet 09/29/2024 10/29/2024 gabapentin (NEURONTIN) 300 MG capsule Take 1 capsule (300 mg total) by mouth 3 (three) times daily for 30 days. Max Daily Amount: 900 mg 90 capsule 09/29/2024 10/29/2024 hydroxychloroquin e (PLAQUENIL) 200 mg tablet Take 1 tablet (200 mg total) by mouth daily for 30 days. 30 tablet 09/29/2024 10/29/2024 LORazepam (ATIVAN) 0.5 MG tablet Take 1 tablet (0.5 mg total) by mouth every 8 (eight) hours as needed for anxiety for up to 3 days. Max Daily Amount: 1.5 mg 9 tablet 09/29/2024 10/02/2024 nicotine (NICODERM CQ) 21 mg/[address] 1 patch on the skin daily for 30 days. 28 patch 09/29/2024 10/29/2024 oxyCODONE (ROXICODONE) 10 MG tablet Take 1 tablet (10 mg total) by mouth every 6 (six) hours as needed for up to 10 days Look-alike/ Sound-alike medication. Max Daily Amount: 40 mg 20 tablet 09/29/2024 10/09/2024 pantoprazole (PROTONIX) 40 MG tablet Take 1 tablet (40 mg total) by mouth daily for 30 days. 30 tablet 09/29/2024 10/29/2024 Saccharomyces boulardii (Florastor) 250 mg capsule Take 1 capsule (250 mg total) by mouth 2 (two) times daily for 7 days. 14 capsule 09/29/2024 10/06/2024 thiamine 100 mg tab tablet Take 1 tablet (100 mg total) by mouth daily for 30 days. 30 tablet 09/29/2024 10/29/2024 documented as of this encounter Progress Notes * Elizabeth Abernathy RN - 09/29/2024 5:43 PM EDT Pt discharged per physician order to rehab facility [facility]. Pt IV removed without issues. Ptverbalized understanding of discharge plan and instructions. Pt transported via medical transport. Report called by this RN to Purnima at receiving facility. * ANGELO Willard/Clara - 09/29/2024 1:43 PM EDT Images from the original note were not included. Inpatient Occupational Therapy Attempt to Treat Patient Name: Christian Castorena Birthday: 1960 Date of Attempt: 09/29/2024 Pt has been up with nursing staff today and would like to rest at this time as he is scheduled for discharge to [facility] this afternoon for further rehab. Electronically signed by ANGELO Willard/Clara - 09/29/2024 - 1:44 PM EDT * Stephie Sorto RN - 09/29/2024 9:53 AM EDT 09/29/24 0952 Final Discharge Plan PCP referral provided? No Community Referral Discussed with Patient? Yes Patient appealing discharge? No Does the patient have the ability to fill and receive their discharge medications? Yes Patient returning to prior living situation? No Support Systems Family members;Other (Comment) (ex-) Discharge Disposition SNF SNF Name and Number [facility] [phone] Transportation Provider [facility] transport Date of ad terminal makeup operator 09/29/24 Time of ad terminal makeup operator 1100 CM received notification from Hillary that [facility] does have a bed open now and patient can admit today. Number for report is [phone]. [facility] to transport via , AURELIANO requested transport to provide oxygen for trip also. Patient to be in front lobby at 1100, nurse and provider updated. CM updated patient and ex-spouse Quynh. 1253: Transport needed to be delayed per [facility]. Patient now ok to admit. Per Hillary transport will now be with [facility] at 1730 and they will come to the room to get patient. CM updated patient, ex-spouse, nursing and provider. DC summary faxed to unit at [phone]. Packet placed in chart. * Johnny Stacy MD - 09/29/2024 8:25 AM EDT Images from the original note were not included. Subjective Thursday, September 26, 2024. Patient seen this afternoon with nurse Tomas ROONEY at the bedside as well as patient's very pleasant ex-. Patient states that they are best friends and that she takes great care of him. She states that after he leaves here she hopes that he will be able to go home with her to [place]. His primary care doctor is Dr. Ralph Nugent MD longtime primary care doctor up there. He states he went to [facility] in the past after he got knee replacement. 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 This afternoon no fevers or chills. No nausea vomiting. No diarrhea constipation. Patient states that he slipped on a rug at home. Friday, September 27, 2024. Nice pleasant gentleman seen examined with his pleasant ex- at the bedside. No fevers or chills this morning. No nausea vomiting does have significant postoperative pain states that the little bit worse and he thought it might be but I did reiterate to him who is a big surgery especially given his previous surgeries. He states that Dr. Diaz and then Dr. Andre performed a number of surgeries when he had the infected knee replacement. September. Nice pleasant gentleman apparently with loose bowel movement overnight and this morning. Getting Senokot, but now I will go ahead and hold it and, add Florastor. No fevers or chills. No chest pain palpitations. No nausea vomiting. Sunday, September 29, 2024. Patient doing well this morning working with physical therapy. He states few episodes of loose bowel movements overnight approximately 6 in the past 24 hours. No fevers or chills. No nausea vomiting. No diarrhea constipation. Patient does complain of pain from surgery but he is working with PT. Review of Systems Constitutional: Negative for chills and fever. HENT: Negative for hearing loss and trouble swallowing. Respiratory: Negative for cough and shortness of breath. Cardiovascular: Negative for chest pain and palpitations. Gastrointestinal: Negative for abdominal pain, constipation, diarrhea, nausea and vomiting. Genitourinary: Negative for dysuria and hematuria. Musculoskeletal: Negative for arthralgias and back pain. Leg pain status post surgery. Left femur fracture wound VAC Skin: Negative for rash and wound. Neurological: Negative for seizures, weakness and headaches. Hematological: Negative for adenopathy. Does not bruise/bleed easily. Psychiatric/Behavioral: Negative for agitation, confusion, hallucinations and suicidal ideas. Objective Last Recorded Vitals Blood pressure 109/52, pulse 99, temperature 98.4 ??F (36.9 ??C), resp. rate 18, height 1.854 m (6'1 ), weight 79.4 kg (175 lb), SpO2 94%. Physical Exam Constitutional: General: He is not in acute distress. Appearance: Normal appearance. He is not toxic-appearing. HENT: Head: Normocephalic and atraumatic. Nose: No congestion or rhinorrhea. Eyes: General: No scleral icterus. Extraocular Movements: Extraocular movements intact. Pupils: Pupils are equal, round, and reactive to light. Cardiovascular: Rate and Rhythm: Normal rate and regular rhythm. Heart sounds: No murmur heard. Pulmonary: Effort: Pulmonary effort is normal. No respiratory distress. Breath sounds: Normal breath sounds. No wheezing. Abdominal: General: Bowel sounds are normal. There is no distension. Palpations: Abdomen is soft. Tenderness: There is no abdominal tenderness. There is no rebound. Musculoskeletal: General: No swelling or tenderness. Cervical back: Normal range of motion and neck supple. Right lower leg: No edema. Left lower leg: No edema. Comments: Left femur fracture repair dressed Skin: Capillary Refill: Capillary refill takes less than 2 seconds. Coloration: Skin is not jaundiced. Findings: No erythema. Neurological: General: No focal deficit present. Mental Status: He is alert and oriented to person, place, and time. Cranial Nerves: No cranial nerve deficit. Motor: No weakness. Psychiatric: Mood and Affect: Mood normal. Behavior: Behavior normal. September 27, 2024: September 29, 2024: Labs: Results for orders placed or performed during the hospital encounter of 09/25/24 (from the past 24 hours) CBC with automated diff Status: Abnormal Collection Time: 09/29/24 4:19 AM Result Value Ref Range WBC 4.3 3.9 - 10.0 K/??L RBC 2.43 (L) 4.63 - 6.08 M/??L Hemoglobin 9.5 (L) 11.2 - 15.7 GM/DL Hematocrit 28.0 (L) 40.1 - 51.0 % MCV 115 (H) 79 - 95 fL MCH 39.1 (H) 25.6 - 32.2 pg MCHC 33.9 32.3 - 36.5 GM/DL RDW 12.7 11.6 - 14.4 % Platelets 88 (L) 163 - 369 K/CU MM MPV 10.8 9.4 - 12.4 fL % Neutros 61 34 - 68 % % Lymphs 25 19 - 53 % % Monos 9 4 - 13 % % Eos 4 1 - 7 % % Baso 1 0 - 1 % # Neutros 2.62 1.56 - 6.13 K/??L # Lymphs 1.08 (L) 1.18 - 3.74 K/??L # Monos 0.39 0.24 - 0.82 K/??L # Eos 0.15 0.04 - 0.54 K/??L # Baso 0.02 0.01 - 0.08 K/??L Immature Granulocytes-Relative 0.20 0.00 - 0.60 % # IG 0.01 0.00 - 0.05 K/uL Comprehensive metabolic panel Status: Abnormal Collection Time: 09/29/24 4:19 AM Result Value Ref Range Sodium 133 (L) 136 - 146 meq/L Potassium 3.5 3.5 - 5.1 meq/L Chloride 105 102 - 112 meq/L CO2 22 21 - 32 meq/L Calcium 7.8 (L) 8.5 - 10.1 mg/dL Glucose 89 74 - 106 mg/dL BUN 8 7 - 22 mg/dL Creatinine 1.03 0.70 - 1.30 mg/dL BUN/Creatinine 8 8 - 20 Albumin 2.1 (L) 3.4 - 5.0 g/dL Alkaline Phosphatase 74 27 - 136 U/L ALT 25 12 - 78 U/L AST 29 5 - 37 U/L Total Bilirubin 0.8 0.2 - 1.3 mg/dL Protein, Total 5.9 (L) 6.4 - 8.2 gm/dL Anion Gap 10 9 - 20 A/G Ratio 0.6 (L) 1.1 - 2.5 Globulin 3.8 1.5 - 4.5 g/dL Osmolality Calc 264.2 mOsm/kg eGFR (mL/min/1.73m2) >60 >=60 mL/min/1.73m2 Fluoroscopy less than 1 hour Narrative: FLUOROSCOPY WITH FILMS HISTORY: left proximal knee fx w/ nailing Fluoroscopic guidance was provided under the direction of the clinical service for intraoperative procedure. 19 digital spot radiographs were obtained for hip pinning. Fluoroscopy time was 2.1 minutes. RADIATION DOSE: Reference air kerma 17 mGy. Impression: Please see postoperative report. Images reviewed, interpreted, and dictated by Dr. Rudy Atkins. Transcribed by David Ledezma PA-C. Assessment Plan Left distal femur fracture, left distal femur periprosthetic fracture Orthopedic consultation Fall precautions September 26, 2024. Retrograde nailing of the left distal femur periprosthetic fracture. Implants: Synthes 400 mm x 10 mm, 20 degree retrograde nail. 4 distal interlocking screws. 2 proximal interlocking screws Pain control Parentally administered controlled substance for comfort care Bowel regimen Acute pain postoperative -Gabapentin 300 mg 3 times a day Tylenol 1000 every 6 as needed Oxycodone 5 mg every 4. Oxycodone 10 mg every 6. Alcohol use disorder-moderate dependence Patient reports sixpack of beer at night Budweiser B12 level with macrocytosis on CBC [facility] protocol Seizure precautions Benzodiazepine therapy Gabapentin therapy Thiamine replacement therapy Multivitamin and folic acid replacement therapy -Macro cytosis MCV of 114. Consistent with heavy alcohol use may be more than 6 beers at night Thrombocytopenia -plt 106 -I bet he drinks more than 6 beers a day - Continue to watch closely if does not improve off of alcohol would consider a hematology consult,liver spleen scan Macrocytosis -MCV 114 -Hemoglobin 13.1 before surgery down to 10 down to 10 down to 9.5 -B12 level 285 low end of normal range so can just add B12 -Folate and thiamine replacement -B12 1000 mcg IM daily Folic acid 1 mg p.o. daily Fatty liver - Given that he mitts to drinking 6 beers a day with a low platelets and the elevated MCV I got ultrasound of the right upper quadrant - Ultrasound shows heterogeneous liver consistent with fatty infiltration but no cirrhosis and a normal size spleen - INR 1.0, ammonia normal at 22 -AST little bit elevated 41 and ALT of 34 COPD not in exacerbation Tobacco dependence Pulse oximetry monitoring Oxygen therapy to maintain appropriate oxygen saturations Currently oxygenating appropriately on room air Chest x-ray pending Rachele/Adithya inhalation therapy Tobacco cessation education Nicotine replacement therapy Hypertension Routine blood pressure monitoring Dihydropyridine calcium channel hermilo therapy Lupus Plaquenil 200 mg daily Loose BM -Likely secondary to stool softeners - Add Florastor VTE prophylaxis: Heparin Code Status: Full code POA: Daughter Medical decision making Thursday, September 26, 2024. Nice pleasant gentleman seen examined with nurse Tomas ROONEY at the bedside aswell as patient's very pleasant ex-. He states his ex- is his best friend and that she takes excellent care of him. She states their plan is for him to go home with her after he leaves here. Previously went to [facility] rehab with a knee replacement in the past. Is a very pleasant ex- does have a cast on her right wrist and she states she had surgery couple weeks ago. I have voiced to them my concern is if he goes home with her and then she is trying to help him and she has thisrisk they just had surgery and she could end up hurting herself. They are agreeable to looking and then exploring the idea of going to short-term rehab. They also have a grandchild that I think is close by and might be able to help. He states he had pretty good quality life before this episode happened. I told him without the case he might want to lean towards short-term rehab to try to get his strength back up to where he was because even if he gets home health at home which they are interested in generally talking about an hour a week or something like this. Labs drawn very early this morning at 242 shows a white count of 5 hemoglobin of 13, creatinine 1.2 he may have some chronic kidney disease. I will get a CBC tomorrow make sure that hemoglobin is relatively stable and that the creatinine is stable. He has macrocytosis MCV of 114 but he is drinking more than just 6 beers a day. Also his platelets are low at 106 this makes me think again more than 6 Budweiser cans a day so would you want a watch him pretty closely for DTs. I will go ahead and schedule IV thiamine and daily for now as well as IV B12. Wednesday, September 27, 2024. Nice pleasant gentleman seen examined with his ex- they are at the bedside. Labs drawn today hemoglobin dropped from 13 down to 10 postoperative notes very surprising platelets lower at 78 again could be secondary to surgery on top of his alcohol use possible bone marrow suppression from heavy alcohol use. He is getting folate thiamine and I have added a multivitamin daily. Also added B12 IM because the B12 was on the lower end of normal and he has a MCV of 118. Patient states he which [facility] in the past and it was a couple years ago and it was not the best experience would prefer to go someplace close to where most of his family is in [facility]. His ex- linda [facility] and he plans on going home with her after he leaves the rehab but for now he like to go to someplace closer to [facility]. Discussed with the medical case manager she is looking into it. Will get a CBC tomorrow obviously if the hemoglobin were to drop significantly more we would transfusehim and we have to watch the platelets as well. Given the list of liver issues I went and checked an ammonia was normal at 22 I checked an INR was normal at 1.0. I got a right upper quadrant ultrasound that showed heterogeneous liver no evidence of cirrhosis but he did have fatty infiltration. He also had a normal size spleen so that is good. September.Gentleman seen examined with nurse Candice at the bedside. Positive for loose bowel movement he has been getting stool softeners. Can go ahead and hold the stool softener it actually does change it to as needed so it is on his MAR if he gets constipated in the future. Will add Florastor. We cannot check for C. difficile as he is received multiple doses of stool softener including yesterday. Labs today pretty unremarkable white count from 7-5 hemoglobin decreased slightly from 10.3 down to 10.1. MCV improved from 118 down to 115, platelets increased from 78 up to 79, creatinine improved from 1.3 down to 1.2. AST stable at 43 up from 41 and ALT improved from 34 down to 32. We can get a CBC CMP in the morning hold stool softener add Florastor will consider adding Imodium if loose bowel movements continue. If pain postop but only got Tylenol 1 time yesterday. Morphine 4 mg not given yesterday but he received 1 dose this morning. Oxycodone 5 mg every 4 given one- time yesterday and the oxycodone 10 mg given 2 times yesterday and once this morning. I did asked the nurse to make sure he gets the IV pain medicine and the oral pain medicine before physical therapy so he is able to more actively participate. He also states that he is open to going to [facility] rehab and I encouraged him to consider it as they have many wonderful options. He states the last time he was there he felt like the nursesdid not come quickly enough when he called them. I told that is probably, to be honest, can to be an issue no matter where he goes so he should try to keep an open mind. Sunday, September 29, 2024. Nice pleasant gentleman seen with nurse Johnson at the bedside working with PT OT still with some loose bowel movements did tell him to take some time for the stool softener toget out of his system. Hemoglobin dropped minimally from 10 down to 9.5 AST ALT normalized. Plan togo to rehab later this afternoon. Up with primary care provider CBC and CMP. Also follow-up with orthopedic surgery in 2 weeks.. Discharge Planning: Discharge Planning: Barriers to discharge: femur repair, pt ot Expected (tentative) discharge in 0-2 days Expected discharge disposition (home, SNF/Rehab, etc): [facility] then after that home with xwife to [facility] with pt ot HH Additional discharge needs or delays: * Stephie Sorto RN - 09/28/2024 2:17 PM EDT AURELIANO received notification from Hillary with [facility] that precert is approved and patient has been placed on list for SRU bed. AURELIANO sent message to [facility] to check and see if [place] could take patient tomorrow if [facility] doesn't have a bed open up by then (could have precert transferred). 1546: updated patient that precert approved for [facility] however they do not currently have an open bed. Advised that need to send out additional SNF referrals. Patient requested to have CM discuss with ex- Quynh. AURELIANO spoke with Quynh and she is agreeable to sending referrals throughout [facility], [facility], and [place]. Referrals sent via [facility]. AURELIANO spoke with Diane with [facility] and she advised no current male beds available. * Chuy Johnson MD - 09/28/2024 12:56 PM EDT Orthopedic progress note Pain remains controlled today.Awaiting rehab Vitals: 09/28/24 0909 BP: Pulse: 55 Resp: Temp: 97.7 ??F (36.5 ??C) SpO2: 97% On exam resting comfortably in bed. Dressings are clean dry and intact. Neurovascular intact distally. WBC Date Value Ref Range Status 09/28/2024 5.8 3.9 - 10.0 K/??L Final 09/27/2024 7.2 3.9 - 10.0 K/??L Final 09/26/2024 5.2 3.9 - 10.0 K/??L Final RBC Date Value Ref Range Status 09/28/2024 2.57 (L) 4.63 - 6.08 M/??L Final 09/27/2024 2.63 (L) 4.63 - 6.08 M/??L Final 09/26/2024 3.36 (L) 4.63 - 6.08 M/??L Final Hemoglobin Date Value Ref Range Status 09/28/2024 10.1 (L) 11.2 - 15.7 GM/DL Final 09/27/2024 10.3 (L) 11.2 - 15.7 GM/DL Final 09/26/2024 13.1 11.2 - 15.7 GM/DL Final Hematocrit Date Value Ref Range Status 09/28/2024 29.6 (L) 40.1 - 51.0 % Final 09/27/2024 30.9 (L) 40.1 - 51.0 % Final 09/26/2024 38.4 (L) 40.1 - 51.0 % Final Platelets Date Value Ref Range Status 09/28/2024 79 (L) 163 - 369 K/CU MM Final 09/27/2024 78 (L) 163 - 369 K/CU MM Final 09/26/2024 106 (L) 163 - 369 K/CU MM Final Assessment/plan: Status post retrograde nailing of left distal femur periprosthetic fracture doing well Weight-bear as tolerated on walker at all times. PT OT. Recommend Lovenox daily x 3 weeks followed by aspirin daily x 3 months. Follow-up with me in 2 to 3 weeks. Okay to discharge from my perspective and I will set up follow-up. * Stephie Sorto RN - 09/28/2024 11:39 AM EDT Discharge Plan Progress Note CM spoke with Hillary with [facility]. Per Hillary, patient's insurance is likely to not approve acute level for a femur fracture, she can start precert for SRU however does not currently have an open bed.Hillary states that with [employer] insurance if she gets approval it can be easily transferred to another SNF if she gets approval but does not have an open bed and another facility does. Patient also currently a 2 person assist and would need to be 1A for SRU, she will continue to monitor patient mobility also. CM will continue to follow up with SNF's for possible back up offer if [facility] can not take. Virgil Glez reviewing. CM updated patient and ex Quynh. MM 09/28/24 Plan: precert started for SRU at [facility], but they do not have open bed currently. If precert approved before bed opens up then per Hillary she can call [employer] and have the precert transferred to another SNF. Will need assist with transport due to mobility. Stephie Sorto RN * Darin Cohen, PT - 09/28/2024 10:07 AM EDT Images from the original note were not included. Inpatient Physical Therapy Treatment Patient Name: Christian Castorena Date of : 1960 Date of Treatment: 09/28/24 Start Time 0953 Stop Time 1007 Session Duration 14 minutes CPT CODES: 28432 Gait training x 1 General Visit Type: Treatment Approved by: Nurse Webster Patient Disposition Upon Entry: Supine in bed, Call Light/Pull Cord in reach, All needs met and within reach, Nursing aware/notified, Bed Alarm applied , Yellow non-slip socks donned Patient Verified By: Name and Date of Co-treated by: OT Precautions Weight-Bearing Status: Weight Bearing As Tolerated (WBAT), LLE Precautions: Fall risk Isolation Precautions: Standard Lines, tubes, drains, airway: nasal cannula , peripheral IV, telemetry Subjective Subjective: Patient agreeable to physical therapy treatment. Pain Pt having pain in LLE. Pain medication already administered. Pt did not rate pain level. Cognition Overall cognitive status: Patient is awake and alert, attending to directions appropriately, demonstrating good problem solving skills, and aware of any deficits or impairments, if present. Objective Vitals Vitals stable. Functional Mobility Bed Mobility: Supine to Sit: minimal assistance, HOB elevated, use of bed features Transfers Sit to Stand: moderate assistance, 2-person assist, gait belt used, rolling walker used Stand to Sit: moderate assistance, 2-person assist, gait belt used, rolling walker used Bed to/from Chair: moderate assistance, 2-person assist, gait belt used, rolling walker used Gait Gait Assistance: moderate assistance, 2-person assist Assistive Device: Gait Belt, Rolling walker Distance: 5ft Gait speed: Decreased madyson Deviation(s): step to pattern, decreased step length, decreased heel strike, poor weight shift, left decreased stance time, increased trunk flexion Stair Management Not addressed today. Focus of treatment today on gait training. Wheelchair Mobility Not assessed, patient ambulatory. [facility] Basic Mobility Inpatient Short Form How much difficulty does the patient currently have: Turning over in bed (including adjusting bedclothes, sheets, and blankets)? (1) Total/Unable (not able to do the activity or can only perform the activity using assistive devices or requires assistance from another person, including supervision or cueing for safety) Sitting down on and standing up from a chair with arms (e.g., wheelchair, bedside commode, etc.)? (1) Total/Unable (not able to do the activity or can only perform the activity using assistive devices or requires assistance from another person, including supervision or cueing for safety) Moving from lying on back to sitting on side of bed? (1) Total/Unable (not able to do the activity or can only perform the activity using assistive devices or requires assistance from another person,including supervision or cueing for safety) How much help from another person does the patient currently need: Moving to and from a bed to a chair (including a wheelchair)? (2) A lot (Maximal/Moderate assist) Need to walk in hospital room? (2) A lot (Maximal/Moderate assist) Climbing 3-5 steps with a railing? (1) Total/Unable (Total assist/dependent) Score Raw score=8 t-Scale score=28.58 Standard error=4.04 [facility] 0-100%=86.62% MDC=4.72 A raw score of >= 16 is significantly associated with increased odds of discharge to home in addition to consideration made for the patient's cognition and social determinants of health. Balance Static/dynamic sitting and static/dynamic standing balance grades Balance Grade Sitting Static Good - patient able to maintain balance without handhold support, limited postural sway Sitting Dynamic Fair - patient accepts minimal challenge; able to maintain balance while turning head/trunk Standing Static Poor - patient requires handhold support and moderate to maximal assistance to maintain position Standing Dynamic Poor - patient unable to accept challenge or move without loss of balance Activity Tolerance Patient limited with activity/intervention due to pain, fatigue, deconditioning, and weakness Treatment Pt performed transfers and gait training. See above assessment. Able to ambulate short distance ~5ft with RW and mod A x 2. Verbal and visual demonstration of correct gait pattern with cues throughout session for safety. No major losses of balance. Pt able to transfer into bedside chair. Performed a few seated LAQ with AAROM and seated marching. Sitting up in chair no major distress at end of sess ion. Assessment Pt progressing with somewhat improve standing and gait tolerance. Still requiring significant assistance. No goals met this session. Pt will continue to benefit from skilled PT. Problems: Decreased core stability, Decreased functional mobility, Decreased gait tolerance, Decreased strength, Decreased activity tolerance, Impaired standing balance, Impaired dynamic balance, Gait impairment, Restricted ROM, Pain Rehab potential: Good for stated goals Plan Treatment plan: Continue per POC. PT Frequency/Duration: 3x/week for 14 days Recommendations Discharge recommendations: Patient would benefit from 3 hours of intensive multidisciplinary therapy per day to maximize functional outcomes and address functional limitations to return to highest level of functioning., If the patient is declining/denied post-acute placement, patient would benefit from continued therapy services and supervision; see equipment recommendations for details DME recommendations: Unable to make recommendations at this time. Goals Supine to/from sit: Supine to sit min A to ease caregiver burden. Sit to/from stand: Sit to stand with RW and min A to ease caregiver burden. Gait: Ambulate 50ft with RW and min A to ease caregiver burden. Transfer: Stand step pivot transfer with RW min A to ease caregiver burden. Target Date: 10/11/2024 Progress towards goals: progressing Education Patient educated on safety, use of call button, role of physical therapy, plan of care, therapeuticexercise, ambulation, transfers, bed mobility, weight bearing precautions, adaptive equipment, ROM/positioning, proper positioning and balance required for functional mobility tasks, home safety, need for assistance, and risk for falls and following, they were able to verbalize understanding. No further questions or concerns stated. Patient Disposition Upon Leaving Patient in bedside chair, Call Light/Pull Cord in reach, All needs met and within reach, Nursing aware/notified, Feet elevated, Chair Alarm applied, Yellow non-slip socks donned If this patient discharges prior to next therapy session, this note serves as the patient's discharge summary. Electronically signed by Darin Cohen, PT - 09/28/24 - 11:56 AM EDT * Malka Villanueva, OTR/L - 09/28/2024 9:53 AM EDT Images from the original note were not included. Inpatient Occupational Therapy Treatment Note Patient Name: Christian Castorena Date of : 1960 Date of Treatment: 09/28/24 Start Time: 0953 Stop Time: 1007 Session Duration: 14 minutes CPT CODES: 20775 ADL/self-care/home management This patient is a 63 y.o. male admitted on 09/25/2024 with Femur fracture, left ([facility]) [S72.92XA] Closed fracture of left distal femur ([facility]) [S72.402A]. Past Medical History: Diagnosis Date COPD (chronic obstructive pulmonary disease) ([facility]) Lupus (systemic lupus erythematosus) ([facility]) Neuropathy Osteoarthritis Past Surgical History: Procedure Laterality Date IM RODDING,FEMUR Left 09/26/2024 Procedure: LEFT RETROGRADE NAILING OF KNEE.; Surgeon: Chuy Johnson MD; Location: [facility]; Service:Orthopedic Surgery; Laterality: Left; REPLACEMENT TOTAL KNEE Right TOTAL KNEE ARTHROPLASTY Left General Visit type: Treatment Approved by: Nursing Patient disposition upon entry: Patient verified by name, Patient verified by date of , Supinein bed, All needs met and within reach, Call light/pull cord in reach, Bed alarm applied, Head of bed >30 degrees, Nursing aware/notified Assisted by: PT Precautions Weightbearing status: Weight bearing as tolerated (WBAT) Precautions: Fall risk Isolation precautions: Standard LDA/Brace/Protective equipment: Lines, drains, and airways: nasal cannula, peripheral IV, telemetry Subjective Subjective: Pt agreeable Pain Pt reports pain in LLE, did not rate. RN aware. Cognition Cognition: Overall cognitive status: Patient is awake and alert, attending to directions appropriately, demonstrating good problem solving skills, and aware of any deficits or impairments, if present. Objective Vitals stable Bed Mobility Supine to sit: Minimal assistance, Head of bed elevated, Use of bedrails Transfers Sit to stand:Moderate assistance, 2 person assist, Gait belt used, Rolling walker used Stand to sit:Moderate assistance, 2 person assist, Gait belt used, Rolling walker used Bed to chair transfer:Moderate assistance, 2 person assist, Gait belt used, Rolling walker used Cues for safety with all mobility and use of rw. Pt demonstrates slight posterior lean in standing and during transfer to chair. ADLs Lower body dressing:Maximal Assistance Toileting:Maximal Assistance Balance Static sitting balance:Good: Patient able to maintain balance without handheld support; limited postural sway Dynamic sitting balance:Fair: Patient accepts minimal challenge; able to maintain balance while turning head/trunk Static standing balance:Fair: Patient able to maintain balance with handheld support, may require occasional minimal assistance Dynamic standing balance:Poor: Patient unable to accept challenge or move without loss of balance further limited by pain and decreased weight bearing on LLE Activity Tolerance Patient limited with activity/intervention due to pain and weakness Treatment See above Assessment Assessment Patient demonstrated maintained performance during this treatment session. Patient continues to present with decreased strength, decreased endurance, decreased balance, decreased safety awareness. These deficits currently impact the patient's ability to perform ADLs and functional mobility, puttingthem at an increased risk for poor outcomes, further functional decline, further decreased strength, increased caregiver burden. Patient will benefit from continued OT services to address the aforementioned functional deficits. Plan Recommendations Discharge recommendations: Discharge recommendations pending progression of acute hospital stay secondary to the patient's medical status DME recommendations: Unable to make adaptive/DME recommendations at this time. Treatment Plan: Continue OT POC OT Frequency/Duration: 3x/week for 14 days Goals Lower body dressing: donning and doffing lower body clothing with moderate assistance. Toileting: toileting with minimal assistance. Bed mobility: bed mobility with minimal assistance. Functional transfers: ambulatory transfer with contact guard assist. Goals were discussed with patient Progress towards goals: progressing Education Patient educated on safety, use of call light, ADLs, functional mobility and following, they were able to verbalize understanding. Interdisciplinary Communication Following treatment, therapist communicated with nursing regarding patient's performance during therapy session. Patient Disposition Upon Leaving Patient Disposition: Sitting in bedside chair, All needs met and within reach, Call light/pull cordin reach, Chair alarm applied, Feet elevated, Nursing aware/notified If this patient discharges prior to next therapy session, this note serves as the patient's discharge summary. Electronically signed by Malka Villanueva OTR/Clara - 09/28/2024 - 10:29 AM EDT * Stephie Sorto RN - 09/28/2024 8:31 AM EDT Spoke with ex- Quynh, she states that family is requesting [facility] referral. CM discussed with patient and he is agreeable. Referral sent via [facility]. * Johnny Stacy MD - 09/28/2024 7:13 AM EDT Images from the original note were not included. Subjective Thursday, September 26, 2024. Patient seen this afternoon with nurse Tomas ROONEY at the bedside as well as patient's very pleasant ex-. Patient states that they are best friends and that she takes great care of him. She states that after he leaves here she hopes that he will be able to go home with her to [place]. His primary care doctor is Dr. Ralph Nugent MD longtime primary care doctor up there. He states he went to [facility] in the past after he got knee replacement. 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 This afternoon no fevers or chills. No nausea vomiting. No diarrhea constipation. Patient states that he slipped on a rug at home. Friday, September 27, 2024. Nice pleasant gentleman seen examined with his pleasant ex- at the bedside. No fevers or chills this morning. No nausea vomiting does have significant postoperative pain states that the little bit worse and he thought it might be but I did reiterate to him who is a big surgery especially given his previous surgeries. He states that Dr. Diaz and then Dr. Andre performed a number of surgeries when he had the infected knee replacement. September. Nice pleasant gentleman apparently with loose bowel movement overnight and this morning. Getting Senokot, but now I will go ahead and hold it and, add Florastor. No fevers or chills. No chest pain palpitations. No nausea vomiting. Review of Systems Constitutional: Negative for chills and fever. HENT: Negative for hearing loss and trouble swallowing. Respiratory: Negative for cough and shortness of breath. Cardiovascular: Negative for chest pain and palpitations. Gastrointestinal: Negative for abdominal pain, constipation, diarrhea, nausea and vomiting. Genitourinary: Negative for dysuria and hematuria. Musculoskeletal: Negative for arthralgias and back pain. Leg pain status post surgery. Left femur fracture Skin: Negative for rash and wound. Neurological: Negative for seizures, weakness and headaches. Hematological: Negative for adenopathy. Does not bruise/bleed easily. Psychiatric/Behavioral: Negative for agitation, confusion, hallucinations and suicidal ideas. Objective Last Recorded Vitals Blood pressure 127/64, pulse 102, temperature 98.2 ??F (36.8 ??C), resp. rate 17, height 1.854 m (6' 1 ), weight 79.4 kg (175 lb), SpO2 91%. Physical Exam Constitutional: General: He is not in acute distress. Appearance: Normal appearance. He is not toxic-appearing. HENT: Head: Normocephalic and atraumatic. Nose: No congestion or rhinorrhea. Eyes: General: No scleral icterus. Extraocular Movements: Extraocular movements intact. Pupils: Pupils are equal, round, and reactive to light. Cardiovascular: Rate and Rhythm: Normal rate and regular rhythm. Heart sounds: No murmur heard. Pulmonary: Effort: Pulmonary effort is normal. No respiratory distress. Breath sounds: Normal breath sounds. No wheezing. Abdominal: General: Bowel sounds are normal. There is no distension. Palpations: Abdomen is soft. Tenderness: There is no abdominal tenderness. There is no rebound. Musculoskeletal: General: No swelling or tenderness. Cervical back: Normal range of motion and neck supple. Right lower leg: No edema. Left lower leg: No edema. Comments: Left femur fracture repair dressed Skin: Capillary Refill: Capillary refill takes less than 2 seconds. Coloration: Skin is not jaundiced. Findings: No erythema. Neurological: General: No focal deficit present. Mental Status: He is alert and oriented to person, place, and time. Cranial Nerves: No cranial nerve deficit. Motor: No weakness. Psychiatric: Mood and Affect: Mood normal. Behavior: Behavior normal. September 27, 2024: Labs: Results for orders placed or performed during the hospital encounter of 09/25/24 (from the past 24 hours) CBC with automated diff Status: Abnormal Collection Time: 09/28/24 3:35 AM Result Value Ref Range WBC 5.8 3.9 - 10.0 K/??L RBC 2.57 (L) 4.63 - 6.08 M/??L Hemoglobin 10.1 (L) 11.2 - 15.7 GM/DL Hematocrit 29.6 (L) 40.1 - 51.0 % MCV 115 (H) 79 - 95 fL MCH 39.3 (H) 25.6 - 32.2 pg MCHC 34.1 32.3 - 36.5 GM/DL RDW 12.6 11.6 - 14.4 % Platelets 79 (L) 163 - 369 K/CU MM MPV 10.6 9.4 - 12.4 fL % Neutros 69 (H) 34 - 68 % % Lymphs 20 19 - 53 % % Monos 9 4 - 13 % % Eos 2 1 - 7 % % Baso 0 0 - 1 % # Neutros 3.96 1.56 - 6.13 K/??L # Lymphs 1.15 (L) 1.18 - 3.74 K/??L # Monos 0.50 0.24 - 0.82 K/??L # Eos 0.10 0.04 - 0.54 K/??L # Baso 0.02 0.01 - 0.08 K/??L Immature Granulocytes-Relative 0.90 (H) 0.00 - 0.60 % # IG 0.05 0.00 - 0.05 K/uL Comprehensive metabolic panel Status: Abnormal Collection Time: 09/28/24 3:35 AM Result Value Ref Range Sodium 134 (L) 136 - 146 meq/L Potassium 4.5 3.5 - 5.1 meq/L Chloride 104 102 - 112 meq/L CO2 23 21 - 32 meq/L Calcium 8.4 (L) 8.5 - 10.1 mg/dL Glucose 94 74 - 106 mg/dL BUN 14 7 - 22 mg/dL Creatinine 1.21 0.70 - 1.30 mg/dL BUN/Creatinine 12 8 - 20 Albumin 2.4 (L) 3.4 - 5.0 g/dL Alkaline Phosphatase 83 27 - 136 U/L ALT 32 12 - 78 U/L AST 43 (H) 5 - 37 U/L Total Bilirubin 0.8 0.2 - 1.3 mg/dL Protein, Total 6.6 6.4 - 8.2 gm/dL Anion Gap 12 9 - 20 A/G Ratio 0.6 (L) 1.1 - 2.5 Globulin 4.2 1.5 - 4.5 g/dL Osmolality Calc 268.5 mOsm/kg eGFR (mL/min/1.73m2) >60 >=60 mL/min/1.73m2 Fluoroscopy less than 1 hour Narrative: FLUOROSCOPY WITH FILMS HISTORY: left proximal knee fx w/ nailing Fluoroscopic guidance was provided under the direction of the clinical service for intraoperative procedure. 19 digital spot radiographs were obtained for hip pinning. Fluoroscopy time was 2.1 minutes. RADIATION DOSE: Reference air kerma 17 mGy. Impression: Please see postoperative report. Images reviewed, interpreted, and dictated by Dr. Rudy Atkins. Transcribed by David Ledezma PA-C. Assessment Plan Left distal femur fracture, left distal femur periprosthetic fracture Orthopedic consultation Fall precautions September 26, 2024. Retrograde nailing of the left distal femur periprosthetic fracture. Implants: Synthes 400 mm x 10 mm, 20 degree retrograde nail. 4 distal interlocking screws. 2 proximal interlocking screws Pain control Parentally administered controlled substance for comfort care Bowel regimen Acute pain postoperative -Gabapentin 300 mg 3 times a day Tylenol 1000 every 6 as needed Oxycodone 5 mg every 4. Oxycodone 10 mg every 6. Alcohol use disorder-moderate dependence Patient reports sixpack of beer at night Budweiser B12 level with macrocytosis on CBC [facility] protocol Seizure precautions Benzodiazepine therapy Gabapentin therapy Thiamine replacement therapy Multivitamin and folic acid replacement therapy -Macro cytosis MCV of 114. Consistent with heavy alcohol use may be more than 6 beers at night Thrombocytopenia -plt 106 -I bet he drinks more than 6 beers a day - Continue to watch closely if does not improve off of alcohol would consider a hematology consult,liver spleen scan Macrocytosis -MCV 114 -Hemoglobin 13.1 before surgery -B12 level 285 low end of normal range so can just add B12 -Folate and thiamine replacement -B12 1000 mcg IM daily Folic acid 1 mg p.o. daily Fatty liver - Given that he mitts to drinking 6 beers a day with a low platelets and the elevated MCV I got ultrasound of the right upper quadrant - Ultrasound shows heterogeneous liver consistent with fatty infiltration but no cirrhosis and a normal size spleen - INR 1.0, ammonia normal at 22 -AST little bit elevated 41 and ALT of 34 COPD not in exacerbation Tobacco dependence Pulse oximetry monitoring Oxygen therapy to maintain appropriate oxygen saturations Currently oxygenating appropriately on room air Chest x-ray pending Rachele/Adithya inhalation therapy Tobacco cessation education Nicotine replacement therapy Hypertension Routine blood pressure monitoring Dihydropyridine calcium channel hermilo therapy Lupus Plaquenil 200 mg daily Loose BM -Likely secondary to stool softeners - Add Florastor VTE prophylaxis: Heparin Code Status: Full code POA: Daughter Medical decision making Thursday, September 26, 2024. Nice pleasant gentleman seen examined with nurse Tomas RN at the bedside aswell as patient's very pleasant ex-. He states his ex- is his best friend and that she takes excellent care of him. She states their plan is for him to go home with her after he leaves here. Previously went to [facility] rehab with a knee replacement in the past. Is a very pleasant ex- does have a cast on her right wrist and she states she had surgery couple weeks ago. I have voiced to them my concern is if he goes home with her and then she is trying to help him and she has thisrisk they just had surgery and she could end up hurting herself. They are agreeable to looking and then exploring the idea of going to short-term rehab. They also have a grandchild that I think is close by and might be able to help. He states he had pretty good quality life before this episode happened. I told him without the case he might want to lean towards short-term rehab to try to get his strength back up to where he was because even if he gets home health at home which they are interested in generally talking about an hour a week or something like this. Labs drawn very early this morning at 242 shows a white count of 5 hemoglobin of 13, creatinine 1.2 he may have some chronic kidney disease. I will get a CBC tomorrow make sure that hemoglobin is relatively stable and that the creatinine is stable. He has macrocytosis MCV of 114 but he is drinking more than just 6 beers a day. Also his platelets are low at 106 this makes me think again more than 6 Budweiser cans a day so would you want a watch him pretty closely for DTs. I will go ahead and schedule IV thiamine and daily for now as well as IV B12. Friday, September 27, 2024. Nice pleasant gentleman seen examined with his ex- they are at the bedside. Labs drawn today hemoglobin dropped from 13 down to 10 postoperative notes very surprising platelets lower at 78 again could be secondary to surgery on top of his alcohol use possible bone marrow suppression from heavy alcohol use. He is getting folate thiamine and I have added a multivitamin daily. Also added B12 IM because the B12 was on the lower end of normal and he has a MCV of 118. Patient states he which [facility] in the past and it was a couple years ago and it was not the best experience would prefer to go someplace close to where most of his family is in [facility]. His ex- linda Jorge [facility] and he plans on going home with her after he leaves the rehab but for now he like to go to someplace closer to [facility]. Discussed with the medical case manager she is looking into it. Will get a CBC tomorrow obviously if the hemoglobin were to drop significantly more we would transfusehim and we have to watch the platelets as well. Given the list of liver issues I went and checked an ammonia was normal at 22 I checked an INR was normal at 1.0. I got a right upper quadrant ultrasound that showed heterogeneous liver no evidence of cirrhosis but he did have fatty infiltration. He also had a normal size spleen so that is good. September.Gentleman seen examined with nurse Harvey at the bedside. Positive for loose bowel movement he has been getting stool softeners. Can go ahead and hold the stool softener it actually does change it to as needed so it is on his MAR if he gets constipated in the future. Will add Florastor. We cannot check for C. difficile as he is received multiple doses of stool softener including yesterday. Labs today pretty unremarkable white count from 7- 5 hemoglobin decreased slightly from 10.3 down to 10.1. MCV improved from 118 down to 115, platelets increased from 78 up to 79, creatinine improved from 1.3 down to 1.2. AST stable at 43 up from 41 and ALT improved from 34 down to 32. We can get a CBC CMP in the morning hold stool softener add Florastor will consider adding Imodium if loose bowel movements continue. If pain postop but only got Tylenol 1 time yesterday. Morphine 4 mg not given yesterday but he received 1 dose this morning. Oxycodone 5 mg every 4 given one- time yesterday and the oxycodone 10 mg given 2 times yesterday and once this morning. I did asked the nurse to make sure he gets the IV pain medicine and the oral pain medicine before physical therapy so he is able to more actively participate. He also states that he is open to going to [facility] rehab and I encouraged him to consider it as they have many wonderful options. He states the last time he was there he felt like the nursesdid not come quickly enough when he called them. I told that is probably, to be honest, can to be an issue no matter where he goes so he should try to keep an open mind. Discharge Planning: Discharge Planning: Barriers to discharge: femur repair, pt ot Expected (tentative) discharge in 1-2 days Expected discharge disposition (home, SNF/Rehab, etc): snf preferably close to [facility] versus [facility] then after that home with xwife to [facility] with pt ot HH Additional discharge needs or delays: * Stephie Sorto RN - 09/27/2024 2:53 PM EDT Discharge Plan Progress Note AURELIANO spoke with [facility] admissions and was advised they do not have access to [facility] to receive referral, however they do not currently have any male beds open at this time. [facility] is still reviewing referral. CM provided patient with additional options to send more referrals. Patient agreeable to sending referrals to [facility] and referrals sent via [facility]. Stephie Sorto RN * Chuy Johnson MD - 09/27/2024 12:42 PM EDT Orthopedic progress note Pain controlled today. Vitals: 09/27/24 0831 BP: 101/55 Pulse: 79 Resp: Temp: 98.6 ??F (37 ??C) SpO2: 96% On exam resting comfortably in bed. Dressings are clean dry and intact. Neurovascular intact distally. WBC Date Value Ref Range Status 09/27/2024 7.2 3.9 - 10.0 K/??L Final 09/26/2024 5.2 3.9 - 10.0 K/??L Final RBC Date Value Ref Range Status 09/27/2024 2.63 (L) 4.63 - 6.08 M/??L Final 09/26/2024 3.36 (L) 4.63 - 6.08 M/??L Final Hemoglobin Date Value Ref Range Status 09/27/2024 10.3 (L) 11.2 - 15.7 GM/DL Final 09/26/2024 13.1 11.2 - 15.7 GM/DL Final Hematocrit Date Value Ref Range Status 09/27/2024 30.9 (L) 40.1 - 51.0 % Final 09/26/2024 38.4 (L) 40.1 - 51.0 % Final Platelets Date Value Ref Range Status 09/27/2024 78 (L) 163 - 369 K/CU MM Final 09/26/2024 106 (L) 163 - 369 K/CU MM Final Assessment/plan: Status post retrograde nailing of left distal femur periprosthetic fracture doing well Weight-bear as tolerated on walker at all times. PT OT. Recommend Lovenox daily x 3 weeks followed by aspirin daily x 3 months. Follow-up with me in 2 to 3 weeks. Okay to discharge from my perspective and I will set up follow-up. * Darin Cohen, PT - 09/27/2024 10:30 AM EDT Images from the original note were not included. [facility] Multidisciplinary Rounding Form Patient Name: Christian Castorena Age: 63 y.o. Today: 09/27/2024 Multidisciplinary Rounding Therapist attended multidisciplinary rounds discussing care of the patient and for discharge planning purposes on 3rd floor telemetry unit from 1030 - 1053. Electronically signed by: Darin Cohen PT, 09/27/2024 2:04 PM * Stephie Sorto RN - 09/27/2024 9:38 AM EDT Discharge Plan Progress Note CM updated by PT that patient will need rehab. CM discussed with patient at bedside. ..Patient/family provided with [facility] approved choice list and Patient choice letter along with Quality data link to access Medicare.gov Care Compare website to review potential post-acute providers. Choice provided to patient/family, and patient preferences received and referral(s) submitted to requested providers. Referral(s) submitted to: [facility] and [facility]. CM left message for liamario Snell with [facility] requesting call back and with [facility] (left message and requested call back). 1102: spoke with Diane at [facility] ([phone]) and she confirms receiving referral and will contact CM after reviewing. 09/27/24 Plan: femur fracture, PT recs rehab. Referrals sent to [facility] and [facility]. CM left messages at both facilities, awaiting call back. Will need bed offer and precert. May need assist with transport depending on mobility. Pt is current with [facility] for home health. Stephie Sorto, RN * Darin Cohen PT - 09/27/2024 8:54 AM EDT Images from the original note were not included. Inpatient Physical Therapy Initial Evaluation Patient Name: Christian Castorena Date of : 1960 Date of Evaluation: 09/27/24 In Time 0838 Out Time 0854 Session Duration 16 minutes Time spent for nursing collaboration, chart and systems review, and clinical reasoning. 10 minutes Total Time 26 minutes [id number] Eval mod complex, No charge Rehab each add 15 min x 1 Pt is a 63 y.o. male admitted on 09/25/2024 with Femur fracture, left ([facility]) [S72.92XA] Closed fracture of left distal femur ([facility]) [S72.402A]. Past Medical History: Diagnosis Date COPD (chronic obstructive pulmonary disease) ([facility]) Lupus (systemic lupus erythematosus) ([facility]) Neuropathy Osteoarthritis Past Surgical History: Procedure Laterality Date REPLACEMENT TOTAL KNEE Right TOTAL KNEE ARTHROPLASTY Left General Visit Type: Initial Evaluation Approved By: Nurse Sanchez Patient Disposition Upon Entry: Supine in bed, Call Light/Pull Cord in reach, All needs met and within reach, Nursing aware/notified, Bed Alarm applied , Visitor/Family present, Yellow non-slip socksdonned Patient Verified By: Name and Date of Co-treated by: OT Precautions Weight-Bearing Status: Weight Bearing As Tolerated (WBAT), LLE Precautions: Fall risk Isolation Precautions: Standard Lines, tubes, drains, airway: telemetry Subjective Subjective: Patient agreeable to physical therapy evaluation and treatment. Pain Yes. 0-10 SCALE Pain location: LLE 9/10. Pain intervention: Medication (See eMAR) Nurse notified and medication administered Ambulation/increased activity. Response to intervention: Not changed Cognition Overall cognitive status: Patient is awake and alert, attending to directions appropriately, demonstrating good problem solving skills, and aware of any deficits or impairments, if present. Orientation Level: Oriented x4 Home Living Lives with: Alone, Ex Home Type: House Home Layout: One level Stairs to enter: 3 step(s), handrail on right ascending Stairs inside home: none Home Equipment: Rolling walker, Shower chair Functional Mobility PLOF: Patient reports being complete independent with all functional mobility prior to onset. Activities of Daily Living PLOF: Patient reports being complete independent with all ADL's prior toonset. Fall History: Yes, patient reports 1 fall(s) in the last 6 months. The most recent fall was a few days ago. Objective Vitals Vitals stable. Basic Strength Assessment RLE WFL, LLE impaired s/p surgery for distal femur fracture Range of Motion Assessment WFL RLE LLE impaired s/p surgery for distal femur fracture Sensation Intact to light touch BLE Coordination Coordination is intact and within normal limits. Functional Mobility Bed Mobility Supine to Sit: maximal assistance, HOB elevated, use of bed features Transfers Sit to Stand: moderate assistance, 2-person assist, gait belt used, rolling walker used Stand to Sit: moderate assistance, 2-person assist, gait belt used, rolling walker used Bed to/from Chair: moderate assistance, 2-person assist, gait belt used, rolling walker used Gait Pt only able to take a few steps during transfer to chair. Poor weight shift, posterior lean, decreased stance time and step lengths LLE Stair Management Not addressed today. Focus of treatment today on transfer training. Wheelchair Mobility Not assessed, patient ambulatory. Outcome Measures -[facility] Basic Mobility Inpatient Short Form How much difficulty does the patient currently have: Turning over in bed (including adjusting bedclothes, sheets, and blankets)? (1) Total/Unable (not able to do the activity or can only perform the activity using assistive devices or requires assistance from another person, including supervision or cueing for safety) Sitting down on and standing up from a chair with arms (e.g., wheelchair, bedside commode, etc.)? (1) Total/Unable (not able to do the activity or can only perform the activity using assistive devices or requires assistance from another person, including supervision or cueing for safety) Moving from lying on back to sitting on side of bed? (1) Total/Unable (not able to do the activity or can only perform the activity using assistive devices or requires assistance from another person,including supervision or cueing for safety) How much help from another person does the patient currently need: Moving to and from a bed to a chair (including a wheelchair)? (2) A lot (Maximal/Moderate assist) Need to walk in hospital room? (2) A lot (Maximal/Moderate assist) Climbing 3-5 steps with a railing? (1) Total/Unable (Total assist/dependent) Score Raw score=8 t-Scale score=28.58 Standard error=4.04 CMS 0-100%=86.62% MDC=4.72 A raw score of >= 16 is significantly associated with increased odds of discharge to home in addition to consideration made for the patient's cognition and social determinants of health. Balance Static/dynamic sitting and static/dynamic standing balance grades Balance Grade Sitting Static Fair - patient able to maintain balance with handhold support; may require occasional minimal assistance Sitting Dynamic Poor - patient unable to accept challenge or move without loss of balance Standing Static Poor - patient requires handhold support and moderate to maximal assistance to maintain position Standing Dynamic Poor - patient unable to accept challenge or move without loss of balance Activity Tolerance Patient limited with activity/intervention due to pain, deconditioning, and weakness Treatment Pt performed transfer training. See above assessments. Poor dynamic balance with posterior lean andrequiring 2 person assist for transfer to chair. Max verbal cues for safety and gait pattern. No major distress after transfer to chair. Assessment Pt presents with decreased strength, impaired functional mobility, impaired gait, and decreased independence. Pt is not safe for discharge home and will benefit from skilled rehab placement to returnto prior level of function. Pt will benefit from skilled acute care PT to improve function, strength, and gait with goal of return to prior level of function. Problems: Decreased core stability, Decreased functional mobility, Decreased gait tolerance, Decreased strength, Decreased activity tolerance, Impaired standing balance, Impaired dynamic balance, Gait impairment, Pain Rehab potential: Good for stated goals Plan Treatment Plan: Therapeutic Exercise, Therapeutic Activity, Gait Training, Transfer Training, Balance Training, Stair Training, Strengthening, Home Exercise Program, ROM, Patient/Family/Caregiver Education, DME Recommendations, Co-Treat with OT PT Frequency/Duration: 3x/week for 14 days Recommendations Discharge recommendations: Patient would benefit from 3 hours of intensive multidisciplinary therapy per day to maximize functional outcomes and address functional limitations to return to highest level of functioning., If the patient is declining/denied post-acute placement, patient would benefit from continued therapy services and supervision; see equipment recommendations for details DME recommendations: Unable to make recommendations at this time. Goals Supine to/from sit: Supine to sit min A to ease caregiver burden. Sit to/from stand: Sit to stand with RW and min A to ease caregiver burden. Gait: Ambulate 50ft with RW and min A to ease caregiver burden. Transfer: Stand step pivot transfer with RW min A to ease caregiver burden. Target Date: 10/11/2024 Goals were discussed with patient Education Patient educated on safety, use of call button, role of physical therapy, plan of care, ambulation,transfers, bed mobility, adaptive equipment, ROM/positioning, proper positioning and balance required for functional mobility tasks, home safety, need for assistance, and risk for falls and following, they were able to verbalize understanding. No further questions or concerns stated. Patient Disposition Upon Leaving Patient in bedside chair, Call Light/Pull Cord in reach, All needs met and within reach, Nursing aware/notified, Feet elevated, Chair Alarm applied, Yellow non-slip socks donned If this patient discharges prior to next therapy session, this note serves as the patient's discharge summary. Electronically signed by Darin Cohen, PT - 09/27/24 - 10:32 AM EDT PT Evaluation Completed * Daniel Mao RN - 09/27/2024 8:45 AM EDTSummary: no palpalbe pulse I cannot feel a left pedal pulse. Daniel RN * ANGELO Willard/Clara - 09/27/2024 8:34 AM EDT Images from the original note were not included. Inpatient Occupational Therapy Initial Evaluation Patient Name: Christian Castorena Date of : 1960 Date of Evaluation: 09/27/24 Start Time: 833 Stop Time: 856 Session Duration: 23 minutes Total time: 33 minutes spent, including 10 minutes for nursing collaboration, thorough chart and systems review, and clinical reasoning. CPT CODES: 96083 Eval mod complexity and 42027 ADL/self-care/home management This patient is a 63 y.o. male admitted on 09/25/2024 with Femur fracture, left (HCC) [S72.92XA] Closed fracture of left distal femur (HCC) [S72.402A]. Past Medical History: Diagnosis Date COPD (chronic obstructive pulmonary disease) (HCC) Lupus (systemic lupus erythematosus) ([facility]) Neuropathy Osteoarthritis Past Surgical History: Procedure Laterality Date REPLACEMENT TOTAL KNEE Right TOTAL KNEE ARTHROPLASTY Left General Visit type: Initial Evaluation Approved by: Nursing Patient disposition upon entry: Patient verified by name, Patient verified by date of , Supinein bed, Visitor/family present, All needs met and within reach, Call light/pull cord in reach, Headof bed >30 degrees, Nursing aware/notified Assisted by: PT Precautions Weightbearing status: Weight bearing as tolerated (WBAT) Precautions: Fall risk Isolation precautions: Standard LDA/Brace/Protective equipment: Lines, drains, and airways: peripheral IV, telemetry Subjective Subjective: Pt agreeable Pain 01/17 LLE, RN present and aware Cognition Cognition: Overall cognitive status: Patient is awake and alert, attending to directions appropriately, demonstrating good problem solving skills, and aware of any deficits or impairments, if present. Orientation level: Oriented x4 Vision/Hearing History Hard of hearing Home Living Lives with: Alone, pt's ex present in room and supportive and will assist if needed Receives help from: Patient does not need help from others at baseline Type of home: House Home layout: One level, 3 stairs to enter with rails Home equipment available: shower chair, walker, rolling Functional Mobility PLOF: Patient reports being complete independent with all functional mobility prior to onset. Activities of Daily Living PLOF: Patient reports being complete independent with all ADL's prior toonset. Does the patient have a recent history of falls?: prior to admission Objective Vitals No issues reported Range of Motion Assessment BUE WFL Strength Assessment BUE WFL Coordination/Sensation Coordination: The patient's gross motor coordination is intact. Sensation: Patient reports no sensation deficits. Bed Mobility Supine to sit: Maximal assistance, Head of bed elevated, Use of bedrails Transfers Sit to stand:Moderate assistance, 2 person assist, Gait belt used, Rolling walker used Stand to sit:Moderate assistance, 2 person assist, Gait belt used, Rolling walker used Functional mobility:Moderate assistance, 2 person assist, Gait belt used, Rolling walker used Bed to chair transfer:Moderate assistance, 2 person assist, Gait belt used, Rolling walker used Cues for safety and sequencing for transfer/mobility a few steps bed to recliner. Pt with posteriorlean in standing initially. ADLs Feeding:Independent Grooming:Setup, Seated in chair Bathing:Maximal Assistance, for LB Upper body dressing:Setup, Seated in chair Lower body dressing:Maximal Assistance Toileting:Maximal Assistance Outcome Measures [facility] Daily Living Functional Assessment How much help from another person does the patient currently need: Putting on and taking off regular lower body clothing? 2 Bathing, including washing, rinsing, and drying? 2 Toileting, including using toilet, bedpan or urinal? 2 Putting on and taking off regular upper body clothing? 3 Taking care of personal grooming such as brushing teeth? 3 Eating meals? 4 1=Total/Unable (Total assist/Dependent) 2=A lot (Maximal/Moderate assist) 3=A little (Minimal/Contact guard/Supervision/Setup) 4=None (Modified independent/Independent) The patient's [facility] raw score is 16. The patient currently has 53.32% functional impairment. Clinicians are most likely to recommend inpatient/SNF/alf care for patients with scores between 6-17, home health for scores between 18-22, and routine discharge for scores above 22. Balance Static sitting balance:Good: Patient able to maintain balance without handheld support; limited postural sway Dynamic sitting balance:Fair: Patient accepts minimal challenge; able to maintain balance while turning head/trunk Static standing balance:Poor: Patient required handheld support and moderate to maximal support to maintain position Dynamic standing balance:Poor: Patient unable to accept challenge or move without loss of balance Pt with posterior lean in standing requiring 2 person assist to correct and maintain. Activity Tolerance Patient limited with activity/intervention due to pain and weakness Treatment See above Assessment Assessment Prior to admission, patient was independent with ADLs, was independent with functional mobility. Currently the patient presents with decreased balance , decreased safety awareness , difficulty with ADLs, fall risk, impaired endurance, impaired functional mobility, impaired strength , increased pain. These deficits currently impact the patient's ability to perform ADLs and functional mobility, putting them at an increased risk for increased falls, poor outcomes, further functional decline, further decreased strength, increased caregiver burden. The patient has good rehab potential and would benefit from OT services to address the aforementioned functional deficits in order to return to priorlevel of function. Plan Recommendations Discharge recommendations: Discharge recommendations pending progression of acute hospital stay secondary to the patient's medical status DME recommendations: Unable to make adaptive/DME recommendations at this time. Treatment Plan: Adaptive equipment training, ADL training, Co-treat with physical therapy, DME recommendations , Energy conservation instruction, Functional mobility/transfer training, Patient/family/caregiver education, Precaution education/training, Safety training, Strengthening OT Frequency/Duration: 3x/week for 14 days Goals Lower body dressing: donning and doffing lower body clothing with moderate assistance. Toileting: toileting with minimal assistance. Bed mobility: bed mobility with minimal assistance. Functional transfers: ambulatory transfer with contact guard assist. Target Date: 10/11/2024 Goals were discussed with patient and family Education Patient/Visitors educated on safety, use of call light, role of occupational therapy, patient's plan of care, ADLs, functional mobility, WBAT precautions and following, they were able to verbalize understanding. Interdisciplinary Communication Following treatment, therapist communicated with nursing regarding patient's performance during therapy session. Patient Disposition Upon Leaving Patient disposition upon leaving: Sitting in bedside chair, Visitor/family present, All needs met and within reach, Call light/pull cord in reach, Chair alarm applied, Feet elevated, Nursing aware/notified If this patient discharges prior to next therapy session, this note serves as the patient's discharge summary. Electronically signed by ANGELO Willard/Clara - 09/27/2024 - 10:33 AM EDT OT Evaluation Completed * Johnny Stacy MD - 09/27/2024 8:09 AM EDT Images from the original note were not included. Subjective Thursday, September 26, 2024. Patient seen this afternoon with nurse Tomas ROONEY at the bedside as well as patient's very pleasant ex-. Patient states that they are best friends and that she takes great care of him. She states that after he leaves here she hopes that he will be able to go home with her to [place]. His primary care doctor is Dr. Ralph Nugent MD longtime primary care doctor up there. He states he went to [facility] in the past after he got knee replacement. 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 This afternoon no fevers or chills. No nausea vomiting. No diarrhea constipation. Patient states that he slipped on a rug at home. Friday, September 27, 2024. Nice pleasant gentleman seen examined with his pleasant ex- at the bedside. No fevers or chills this morning. No nausea vomiting does have significant postoperative pain states that the little bit worse and he thought it might be but I did reiterate to him who is a big surgery especially given his previous surgeries. He states that Dr. Diaz and then Dr. Andre performed a number of surgeries when he had the infected knee replacement. Review of Systems Constitutional: Negative for chills and fever. HENT: Negative for hearing loss and trouble swallowing. Respiratory: Negative for cough and shortness of breath. Cardiovascular: Negative for chest pain and palpitations. Gastrointestinal: Negative for abdominal pain, constipation, diarrhea, nausea and vomiting. Genitourinary: Negative for dysuria and hematuria. Musculoskeletal: Negative for arthralgias and back pain. Leg pain status post surgery. Left femur fracture Skin: Negative for rash and wound. Neurological: Negative for seizures, weakness and headaches. Hematological: Negative for adenopathy. Does not bruise/bleed easily. Psychiatric/Behavioral: Negative for agitation, confusion, hallucinations and suicidal ideas. Objective Last Recorded Vitals Blood pressure 131/55, pulse 114, temperature 98.2 ??F (36.8 ??C), temperature source Oral, resp. rate 17, height 1.854 m (6' 1 ), weight 79.4 kg (175 lb), SpO2 97%. Physical Exam Constitutional: General: He is not in acute distress. Appearance: Normal appearance. He is not toxic-appearing. HENT: Head: Normocephalic and atraumatic. Nose: No congestion or rhinorrhea. Eyes: General: No scleral icterus. Extraocular Movements: Extraocular movements intact. Pupils: Pupils are equal, round, and reactive to light. Cardiovascular: Rate and Rhythm: Normal rate and regular rhythm. Heart sounds: No murmur heard. Pulmonary: Effort: Pulmonary effort is normal. No respiratory distress. Breath sounds: Normal breath sounds. No wheezing. Abdominal: General: Bowel sounds are normal. There is no distension. Palpations: Abdomen is soft. Tenderness: There is no abdominal tenderness. There is no rebound. Musculoskeletal: General: No swelling or tenderness. Cervical back: Normal range of motion and neck supple. Right lower leg: No edema. Left lower leg: No edema. Comments: Left femur fracture repair dressed Skin: Capillary Refill: Capillary refill takes less than 2 seconds. Coloration: Skin is not jaundiced. Findings: No erythema. Neurological: General: No focal deficit present. Mental Status: He is alert and oriented to person, place, and time. Cranial Nerves: No cranial nerve deficit. Motor: No weakness. Psychiatric: Mood and Affect: Mood normal. Behavior: Behavior normal. September 27, 2024: Labs: Results for orders placed or performed during the hospital encounter of 09/25/24 (from the past 24 hours) CBC with automated diff Status: Abnormal Collection Time: 09/27/24 4:22 AM Result Value Ref Range WBC 7.2 3.9 - 10.0 K/??L RBC 2.63 (L) 4.63 - 6.08 M/??L Hemoglobin 10.3 (L) 11.2 - 15.7 GM/DL Hematocrit 30.9 (L) 40.1 - 51.0 % MCV 118 (H) 79 - 95 fL MCH 39.2 (H) 25.6 - 32.2 pg MCHC 33.3 32.3 - 36.5 GM/DL RDW 12.7 11.6 - 14.4 % Platelets 78 (L) 163 - 369 K/CU MM MPV 11.0 9.4 - 12.4 fL % Neutros 85 (H) 34 - 71 % % Lymphs 10 (L) 19 - 53 % % Monos 4 4 - 13 % % Eos 1 1 - 7 % % Baso 0 0 - 1 % # Neutros 6.09 1.56 - 6.13 K/??L # Lymphs 0.75 (L) 1.18 - 3.74 K/??L # Monos 0.25 0.24 - 0.82 K/??L # Eos 0.04 0.04 - 0.54 K/??L # Baso 0.02 0.01 - 0.08 K/??L Immature Granulocytes-Relative 0.70 (H) 0.00 - 0.60 % # IG 0.05 0.00 - 0.05 K/uL Comprehensive metabolic panel Status: Abnormal Collection Time: 09/27/24 4:22 AM Result Value Ref Range Sodium 132 (L) 136 - 146 meq/L Potassium 4.5 3.5 - 5.1 meq/L Chloride 104 102 - 112 meq/L CO2 22 21 - 32 meq/L Calcium 8.4 (L) 8.5 - 10.1 mg/dL Glucose 98 74 - 106 mg/dL BUN 15 7 - 22 mg/dL Creatinine 1.30 0.70 - 1.30 mg/dL BUN/Creatinine 12 8 - 20 Albumin 2.3 (L) 3.4 - 5.0 g/dL Alkaline Phosphatase 67 27 - 136 U/L ALT 34 12 - 78 U/L AST 41 (H) 5 - 37 U/L Total Bilirubin 1.0 0.2 - 1.3 mg/dL Protein, Total 6.2 (L) 6.4 - 8.2 gm/dL Anion Gap 11 9 - 20 A/G Ratio 0.6 (L) 1.1 - 2.5 Globulin 3.9 1.5 - 4.5 g/dL Osmolality Calc 265.3 mOsm/kg eGFR (mL/min/1.73m2) >60 >=60 mL/min/1.73m2 PT/INR, PTT Status: Normal Collection Time: 09/27/24 4:22 AM Result Value Ref Range aPTT 28.1 22.0 - 32.0 seconds Protime 10.9 9.0 - 12.0 seconds INR 1.00 0.80 - 1.10 Ammonia Status: Normal Collection Time: 09/27/24 4:22 AM Result Value Ref Range Ammonia 22 11 - 32 ??mol/L Fluoroscopy less than 1 hour Narrative: FLUOROSCOPY WITH FILMS HISTORY: left proximal knee fx w/ nailing Fluoroscopic guidance was provided under the direction of the clinical service for intraoperative procedure. 19 digital spot radiographs were obtained for hip pinning. Fluoroscopy time was 2.1 minutes. RADIATION DOSE: Reference air kerma 17 mGy. Impression: Please see postoperative report. Images reviewed, interpreted, and dictated by Dr. Rudy Atkins. Transcribed by David Ledezma PA-C. Assessment Plan Left distal femur fracture, left distal femur periprosthetic fracture Orthopedic consultation Fall precautions September 26, 2024. Retrograde nailing of the left distal femur periprosthetic fracture. Implants: Synthes 400 mm x 10 mm, 20 degree retrograde nail. 4 distal interlocking screws. 2 proximal interlocking screws Pain control Parentally administered controlled substance for comfort care Bowel regimen Acute pain postoperative -Gabapentin 300 mg 3 times a day Tylenol 1000 every 6 as needed Oxycodone 5 mg every 4. Oxycodone 10 mg every 6. Alcohol use disorder-moderate dependence Patient reports sixpack of beer at night Budweiser B12 level with macrocytosis on CBC [facility] protocol Seizure precautions Benzodiazepine therapy Gabapentin therapy Thiamine replacement therapy Multivitamin and folic acid replacement therapy -Macro cytosis MCV of 114. Consistent with heavy alcohol use may be more than 6 beers at night Thrombocytopenia -plt 106 -I bet he drinks more than 6 beers a day - Continue to watch closely if does not improve off of alcohol would consider a hematology consult,liver spleen scan Macrocytosis -MCV 114 -Hemoglobin 13.1 before surgery -B12 level 285 low end of normal range so can just add B12 -Folate and thiamine replacement -B12 1000 mcg IM daily Folic acid 1 mg p.o. daily Fatty liver - Given that he mitts to drinking 6 beers a day with a low platelets and the elevated MCV I got ultrasound of the right upper quadrant - Ultrasound shows heterogeneous liver consistent with fatty infiltration but no cirrhosis and a normal size spleen - INR 1.0, ammonia normal at 22 -AST little bit elevated 41 and ALT of 34 COPD not in exacerbation Tobacco dependence Pulse oximetry monitoring Oxygen therapy to maintain appropriate oxygen saturations Currently oxygenating appropriately on room air Chest x-ray pending Rachele/Adithya inhalation therapy Tobacco cessation education Nicotine replacement therapy Hypertension Routine blood pressure monitoring Dihydropyridine calcium channel hermilo therapy Lupus Plaquenil 200 mg daily VTE prophylaxis: Heparin Code Status: Full code POA: Daughter Medical decision making Thursday, September 26, 2024. Nice pleasant gentleman seen examined with nurse Tomas RN at the bedside aswell as patient's very pleasant ex-. He states his ex- is his best friend and that she takes excellent care of him. She states their plan is for him to go home with her after he leaves here. Previously went to [facility] rehab with a knee replacement in the past. Is a very pleasant ex- does have a cast on her right wrist and she states she had surgery couple weeks ago. I have voiced to them my concern is if he goes home with her and then she is trying to help him and she has thisrisk they just had surgery and she could end up hurting herself. They are agreeable to looking and then exploring the idea of going to short-term rehab. They also have a grandchild that I think is close by and might be able to help. He states he had pretty good quality life before this episode happened. I told him without the case he might want to lean towards short-term rehab to try to get his strength back up to where he was because even if he gets home health at home which they are interested in generally talking about an hour a week or something like this. Labs drawn very early this morning at 242 shows a white count of 5 hemoglobin of 13, creatinine 1.2 he may have some chronic kidney disease. I will get a CBC tomorrow make sure that hemoglobin is relatively stable and that the creatinine is stable. He has macrocytosis MCV of 114 but he is drinking more than just 6 beers a day. Also his platelets are low at 106 this makes me think again more than 6 Budweiser cans a day so would you want a watch him pretty closely for DTs. I will go ahead and schedule IV thiamine and daily for now as well as IV B12. Wednesday, September 27, 2024. Nice pleasant gentleman seen examined with his ex- they are at the bedside. Labs drawn today hemoglobin dropped from 13 down to 10 postoperative notes very surprising platelets lower at 78 again could be secondary to surgery on top of his alcohol use possible bone marrow suppression from heavy alcohol use. He is getting folate thiamine and I have added a multivitamin daily. Also added B12 IM because the B12 was on the lower end of normal and he has a MCV of 118. Patient states he which [facility] in the past and it was a couple years ago and it was not the best experience would prefer to go someplace close to where most of his family is in [facility]. His ex- linda Jorge [facility] and he plans on going home with her after he leaves the rehab but for now he like to go to someplace closer to [facility]. Discussed with the medical case manager she is looking into it. Will get a CBC tomorrow obviously if the hemoglobin were to drop significantly more we would transfusehim and we have to watch the platelets as well. Given the list of liver issues I went and checked an ammonia was normal at 22 I checked an INR was normal at 1.0. I got a right upper quadrant ultrasound that showed heterogeneous liver no evidence of cirrhosis but he did have fatty infiltration. He also had a normal size spleen so that is good. Discharge Planning: Discharge Planning: Barriers to discharge: femur repair, pt ot Expected (tentative) discharge in 2-4 days Expected discharge disposition (home, SNF/Rehab, etc): snf preferably close to [facility] then after that home with xwife to [facility] with pt ot HH Additional discharge needs or delays: * Stephie Sorto RN - 09/26/2024 2:11 PM EDT Discharge Plan Progress Note MDR attended with team. Surgery today for Left hip fracture. CM to follow for PT/OT evals after surgery for final discharge needs. CM received notification that patient is current with [facility]. MM 09/26/24 Plan: pt current with [facility]. Surgery today for hip fracture. Pt prefers to go home with HH. Await therapy evals for final plan. Ex- to transport. Stephie Sorto RN * Tomas Horner RN - 09/26/2024 9:55 AM EDT Called [facility] to notify them patient would be off telemetry for procedure. Kavitha ROONEY to bedside for handoff to pre-op. Transfer of care completed. * Johnny Stacy MD - 09/26/2024 9:23 AM EDT Images from the original note were not included. Subjective Thursday, September 26, 2024. Patient seen this afternoon with nurse Tomas ROONEY at the bedside as well as patient's very pleasant ex-. Patient states that they are best friends and that she takes great care of him. She states that after he leaves here she hopes that he will be able to go home with her to [place]. His primary care doctor is Dr. Ralph Nugent MD longtime primary care doctor up there. He states he went to [facility] in the past after he got knee replacement. He states in thest when he had a knee replacement he ended up getting an infection require long-term IV antibiotics and there was some concern that he might be at risk of losing the leg but fortunately is able to g et through it. This afternoon no fevers or chills. No nausea vomiting. No diarrhea constipation. Patient states that he slipped on a rug at home. Review of Systems Constitutional: Negative for chills and fever. HENT: Negative for hearing loss and trouble swallowing. Respiratory: Negative for cough and shortness of breath. Cardiovascular: Negative for chest pain and palpitations. Gastrointestinal: Negative for abdominal pain, constipation, diarrhea, nausea and vomiting. Genitourinary: Negative for dysuria and hematuria. Musculoskeletal: Negative for arthralgias and back pain. Leg pain status post surgery. Left femur fracture Skin: Negative for rash and wound. Neurological: Negative for seizures, weakness and headaches. Hematological: Negative for adenopathy. Does not bruise/bleed easily. Psychiatric/Behavioral: Negative for agitation, confusion, hallucinations and suicidal ideas. Objective Last Recorded Vitals Blood pressure 134/71, pulse 106, temperature 97.5 ??F (36.4 ??C), resp. rate 18, weight 79.4 kg (175 lb), SpO2 93%. Physical Exam Constitutional: General: He is not in acute distress. Appearance: Normal appearance. He is not toxic-appearing. HENT: Head: Normocephalic and atraumatic. Nose: No congestion or rhinorrhea. Eyes: General: No scleral icterus. Extraocular Movements: Extraocular movements intact. Pupils: Pupils are equal, round, and reactive to light. Cardiovascular: Rate and Rhythm: Normal rate and regular rhythm. Heart sounds: No murmur heard. Pulmonary: Effort: Pulmonary effort is normal. No respiratory distress. Breath sounds: Normal breath sounds. No wheezing. Abdominal: General: Bowel sounds are normal. There is no distension. Palpations: Abdomen is soft. Tenderness: There is no abdominal tenderness. There is no rebound. Musculoskeletal: General: No swelling or tenderness. Cervical back: Normal range of motion and neck supple. Right lower leg: No edema. Left lower leg: No edema. Comments: Left femur fracture repair dressed Skin: Capillary Refill: Capillary refill takes less than 2 seconds. Coloration: Skin is not jaundiced. Findings: No erythema. Neurological: General: No focal deficit present. Mental Status: He is alert and oriented to person, place, and time. Cranial Nerves: No cranial nerve deficit. Motor: No weakness. Psychiatric: Mood and Affect: Mood normal. Behavior: Behavior normal. Labs: Results for orders placed or performed during the hospital encounter of 09/25/24 (from the past 24 hours) ECG 12 lead Status: None (In process) Collection Time: 09/25/24 3:12 PM Result Value Ref Range VENTRICULAR RATE EKG/MIN 87 BPM ATRIAL RATE (MCT) 87 BPM [place] Interval 122 ms QRS-INTERVAL (MSEC) 80 ms QT Interval 364 ms QTC Interval 438 ms P [place] 30 degrees R AXIS (MCT) 44 degrees T Wave [place] 41 degrees [place] Diagnosis Normal sinus rhythm Normal ECG No previous ECGs available CBC with automated diff Status: Abnormal Collection Time: 09/26/24 2:42 AM Result Value Ref Range WBC 5.2 3.9 - 10.0 K/??L RBC 3.36 (L) 4.63 - 6.08 M/??L Hemoglobin 13.1 11.2 - 15.7 GM/DL Hematocrit 38.4 (L) 40.1 - 51.0 % MCV 114 (H) 79 - 95 fL MCH 39.0 (H) 25.6 - 32.2 pg MCHC 34.1 32.3 - 36.5 GM/DL RDW 13.0 11.6 - 14.4 % Platelets 106 (L) 163 - 369 K/CU MM MPV 11.4 9.4 - 12.4 fL % Neutros 67 34 - 68 % % Lymphs 25 19 - 53 % % Monos 6 4 - 13 % % Eos 1 1 - 7 % % Baso 1 0 - 1 % # Neutros 3.53 1.56 - 6.13 K/??L # Lymphs 1.29 1.18 - 3.74 K/??L # Monos 0.29 0.24 - 0.82 K/??L # Eos 0.07 0.04 - 0.54 K/??L # Baso 0.03 0.01 - 0.08 K/??L Immature Granulocytes-Relative 0.60 0.00 - 0.60 % # IG 0.03 0.00 - 0.05 K/uL Basic Metabolic Panel Status: Abnormal Collection Time: 09/26/24 2:42 AM Result Value Ref Range Sodium 133 (L) 136 - 146 meq/L Potassium 4.1 3.5 - 5.1 meq/L Chloride 102 102 - 112 meq/L CO2 25 21 - 32 meq/L Anion Gap 10 9 - 20 BUN 9 7 - 22 mg/dL Creatinine 1.21 0.70 - 1.30 mg/dL BUN/Creatinine 7 (L) 8 - 20 Glucose 84 74 - 106 mg/dL Calcium 8.8 8.5 - 10.1 mg/dL Osmolality Calc 264.3 mOsm/kg eGFR (mL/min/1.73m2) >60 >=60 mL/min/1.73m2 Magnesium Status: Normal Collection Time: 09/26/24 2:42 AM Result Value Ref Range Magnesium 1.8 1.5 - 2.4 mg/dL Vitamin B12 Status: Normal Collection Time: 09/26/24 2:42 AM Result Value Ref Range Vitamin B12 285 193 - 986 pg/mL XR chest AP portable Narrative: PORTABLE CHEST; HISTORY: Shortness of air, COPD. COMPARISON: March 2011. FINDINGS: The heart is normal in size. The mediastinum is unremarkable. There are chronic changes bilaterally. There is no evidence of acute infiltrate or effusion. There is no pneumothorax. Impression: No acute process. Images reviewed, interpreted, and dictated by Dr. Rudy Atkins. Transcribed by Berkley Chin PA-C. Assessment Plan Left distal femur fracture, left distal femur periprosthetic fracture Orthopedic consultation Fall precautions September 26, 2024. Retrograde nailing of the left distal femur periprosthetic fracture. Implants: Synthes 400 mm x 10 mm, 20 degree retrograde nail. 4 distal interlocking screws. 2 proximal interlocking screws Pain control Parentally administered controlled substance for comfort care Bowel regimen Alcohol use disorder-moderate dependence Patient reports sixpack of beer at night Budweiser B12 level with macrocytosis on CBC [facility] protocol Seizure precautions Benzodiazepine therapy Gabapentin therapy Thiamine replacement therapy Multivitamin and folic acid replacement therapy -Macro cytosis MCV of 114. Consistent with heavy alcohol use Thrombocytopenia -plt 106 -I bet he drinks more than 6 beers a day - Continue to watch closely if does not improve off of alcohol would consider a hematology consult,liver spleen scan Macrocytosis -MCV 114 -Hemoglobin 13.1 before surgery -B12 level 285 low end of normal range so can just add B12 -Folate and thiamine replacement COPD not in exacerbation Tobacco dependence Pulse oximetry monitoring Oxygen therapy to maintain appropriate oxygen saturations Currently oxygenating appropriately on room air Chest x-ray pending Rachele/Adithya inhalation therapy Tobacco cessation education Nicotine replacement therapy Hypertension Routine blood pressure monitoring Dihydropyridine calcium channel hermilo therapy VTE prophylaxis: Heparin Code Status: Full code POA: Daughter Medical decision making Thursday, September 26, 2024. Nice pleasant gentleman seen examined with nurse Tomas RN at the bedside aswell as patient's very pleasant ex-. He states his ex- is his best friend and that she takes excellent care of him. She states their plan is for him to go home with her after he leaves here. Previously went to [facility] rehab with a knee replacement in the past. Is a very pleasant ex- does have a cast on her right wrist and she states she had surgery couple weeks ago. I have voiced to them my concern is if he goes home with her and then she is trying to help him and she has thisrisk they just had surgery and she could end up hurting herself. They are agreeable to looking and then exploring the idea of going to short-term rehab. They also have a grandchild that I think is close by and might be able to help. He states he had pretty good quality life before this episode happened. I told him without the case he might want to lean towards short-term rehab to try to get his strength back up to where he was because even if he gets home health at home which they are interested in generally talking about an hour a week or something like this. Labs drawn very early this morning at 242 shows a white count of 5 hemoglobin of 13, creatinine 1.2 he may have some chronic kidney disease. I will get a CBC tomorrow make sure that hemoglobin is relatively stable and that the creatinine is stable. He has macrocytosis MCV of 114 but he is drinking more than just 6 beers a day. Also his platelets are low at 106 this makes me think again more than 6 Budweiser cans a day so would you want a watch him pretty closely for DTs. I will go ahead and schedule IV thiamine and daily for now as well as IV B12. Discharge Planning: Discharge Planning: Barriers to discharge: femur repair, pt ot Expected (tentative) discharge in 2-4 days Expected discharge disposition (home, SNF/Rehab, etc): snf vs home with xwife to [facility] with pt ot HH Additional discharge needs or delays: * Malka Villanueva OTR/Clara - 09/26/2024 7:55 AM EDT Images from the original note were not included. Inpatient Occupational Therapy Attempt to Treat Patient Name: Christian Castorena Birthday: 1960 Date of Attempt: 09/26/2024 Pt is pending surgery today for femur fracture. OT to sign off on current order as new orders will be needed post operatively with weight bearing and mobility restrictions. Electronically signed by ANGELO Willard/Clara - 09/26/2024 - 10:27 AM EDT * Purnima Vitale PT - 09/26/2024 7:30 AM EDTSummary: PT SCREEN Images from the original note were not included. [facility] Physical Therapy Patient Screening Patient Name: Christian Castorena Date of : 1960 Age: 63 y.o. Today: 09/26/2024 Chart Review, collaboration with RN and clinical reasoning/decision making time required for completion of evaluation = 10 minutes. Screen Details Information received from: patient and RN Physical Therapy Services Recommended: NO Comment: Pt is awaiting surgical intervention later today for repair of femur fracture. PT spoke with patient this am and educated him on the progression of PT activity following surgery and what to expect. PT also educated pt regarding needing orders from MD following surgery for appropriate weight bearing restrictions and mobility restrictions if any. PT will sign off at this time and will neednew orders following surgery. RN aware. Electronically signed by: Purnima Vitale PT, 09/26/2024 7:46 AM documented in this encounter H&P Notes * Moose Granda MD - 09/25/2024 11:26 AM EDT Patient Name: Christian Castorena : 1960 Primary Care Physician: No primary care provider on file. Date of Admission: 09/25/2024 History & Physical Chief Complaint I broke my leg History Of Present Illness Christian Castorena is a 63 y.o. male that presents to [facility] in transition of [facility] emergency department for left distal femur fracture that occurred approximately2 AM in the morning after tripping on a rug, falling and identifying a snap to his left lower extremity. He presented to the ED and imaging identified left distal femur fracture. Orthopedics was contacted out of the ED and his care was transitioned to [facility]. Currently he reports pain 8 on a 1-10 pain scale sharp to his left lower extremity made worse with movement. He reportsunable to bear weight but describes no other injuries or trauma. He specifically denies head or neck injury. He reports no associated retrosternal chest pain, dyspnea, palpitations, confusion or difficulty urinating. His admission vitals identify that he is saturating 99% on room air. Past Medical History Osteoarthritis, COPD, hypertension, lupus, chronic benzodiazepine therapy, chronic prednisone therapy, alcohol use disorder Surgical History Right TKA with reimplantation and revision 2022, colonoscopy, left TKA Family History Mother is living at the age of 94 with memory changes and father at 77 from lung cancer Social History He is and lives alone in [facility]. He has 3 adult children. He identifies his oldest daughter Meg Almeida as his POA. Review of Systems A complete 10 point review of systems has been performed and is negative with the exception of findings in the HPI. Allergies Patient has no known allergies. Medications No current outpatient medications Vitals Blood pressure (!) 148/76, pulse 88, temperature 97.3 ??F (36.3 ??C), resp. rate 18, SpO2 95%. There is no height or weight on file to calculate BMI. Physical Exam General: Alert and interactive, chronically ill-appearing, in some distress Eye: Conjunctiva appropriate, sclera white HENT: Normocephalic, appropriate hearing, moist oral mucosa Neck: Supple, no JVD, no lymphadenopathy Lungs: Appropriate effort, rhonchi to auscultation, adequate excursion Heart: regular rate, regular rhythm, no murmur, no edema Abdomen: Soft, non-tender, non-distended, active bowel sounds Musculoskeletal: LLE with tenderness and diminished ROM Skin: Skin is warm, dry and pink, no diffuse rashes Neurologic: Awake, alert and oriented X 3, sensory intact, no focal deficits Psychiatric: Cooperative, appropriate mood and affect Diagnostic Results Results Reviewed: I have personally reviewed and interpreted available lab data dated 09/25/24 identifying: WBC 3.1, hemoglobin 13.9, hematocrit 41.5, INR 0.9, platelets 144, MCV 116, sodium 141, potassium 4.8, chloride 108, CO2 19.3, BUN 8.4, creatinine 1.19, anion gap 14, glucose 91, calcium 8.9, total bilirubin 0.5, AST 49, ALT 47 I have personally reviewed and interpreted imaging available and dated 09/25/24 identifying: XR chest AP portable Narrative: PORTABLE CHEST; HISTORY: Shortness of air, COPD. COMPARISON: March 2011. FINDINGS: The heart is normal in size. The mediastinum is unremarkable. There are chronic changes bilaterally. There is no evidence of acute infiltrate or effusion. There is no pneumothorax. Impression: No acute process. Images reviewed, interpreted, and dictated by Dr. Rudy Atkins. Transcribed by Berkley Chin PA-C. I have personally reviewed ECG report dated 09/25/24 identifying: Normal sinus rhythm rate 90 with QTc 443 ms Assessment / Plan Left distal femur fracture Orthopedic consultation Fall precautions N.p.o. past midnight Pain control Parentally administered controlled substance for comfort care Bowel regimen Alcohol use disorder-moderate dependence Patient reports sixpack of beer at night Budweiser B12 level with macrocytosis on CBC [facility] protocol Seizure precautions Benzodiazepine therapy Gabapentin therapy Thiamine replacement therapy Multivitamin and folic acid replacement therapy COPD not in exacerbation Tobacco dependence Pulse oximetry monitoring Oxygen therapy to maintain appropriate oxygen saturations Currently oxygenating appropriately on room air Chest x-ray pending Rachele/Adithya inhalation therapy Tobacco cessation education Nicotine replacement therapy Hypertension Routine blood pressure monitoring Dihydropyridine calcium channel hermilo therapy VTE prophylaxis: Heparin Code Status: Full code POA: Daughter The length of stay for this patient will be 2 midnights or greater, due to above diagnosis. Electronically signed by: Moose Granda MD, 09/25/2024 at 11:26 AM documented in this encounter Consult Notes * Chuy Johnson MD - 09/25/2024 3:57 PM EDT Consults orthopedic History of Present Illness: Christian Castorena is a 63 y.o. male presenting with a left distal femur periprosthetic fracture. He was walking in his house this morning and tripped resulting in left knee pain. He underwent left total knee arthroplasty years ago at and did well. 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 No history of infections on the left. He normally ambulateswith a cane. Past Medical History: He has no past medical history on file. Past Surgical History: He has no past surgical history on file. Social History: He has no history on file for tobacco use, alcohol use, and drug use. Family History: His family history is not on file. Allergies: Patient has no known allergies. Medications: Medications Prior to Admission Medication Sig Dispense Refill Last Dose/Taking furosemide (LASIX) 40 MG tablet Take 1 tablet (40 mg total) by mouth daily. 09/24/2024 gabapentin (NEURONTIN) 600 MG tablet Take 1 tablet (600 mg total) by mouth 3 (three) times daily. Max Daily Amount: 1,800 mg 09/24/2024 hydroxychloroquine (PLAQUENIL) 200 mg tablet Take 1 tablet (200 mg total) by mouth 2 (two) times daily. 09/24/2024 ibuprofen (MOTRIN) 800 MG tablet Take 1 tablet (800 mg total) by mouth 3 (three) times daily. 09/24/2024 LORazepam (ATIVAN) 0.5 MG tablet Take 1 tablet (0.5 mg total) by mouth 3 (three) times daily. Max Daily Amount: 1.5 mg 09/24/2024 NIFEdipine (ADALAT CC) 30 MG 24 hr tablet Take 1 tablet (30 mg total) by mouth daily. 09/24/2024 pantoprazole (PROTONIX) 20 MG tablet Take 1 tablet (20 mg total) by mouth Daily (0600). 09/24/2024 potassium chloride (KLOR-CON) 10 MEQ CR tablet Take 1 tablet (10 mEq total) by mouth daily. 09/24/2024 predniSONE (DELTASONE) 20 MG tablet Take 0.5 tablets (10 mg total) by mouth daily with breakfast Look-alike/Sound-alike medication. 09/24/2024 Review of Systems 10 of 14 systems reviewed and negative except HPI Vitals: Blood pressure (!) 178/94, pulse 98, temperature 97.2 ??F (36.2 ??C), resp. rate 19, SpO2 94%. Physical Exam On exam he is resting comfortably in bed. Heart regular by peripheral palpation. Nonlabored breathing on room air. Exam the left lower extremity shows the skin to be clean dry and intact. He is neurovascular intact distally. Relevant Results: Multiview x-ray of the left knee and femur from outside hospital demonstrate a left distal femur periprosthetic fracture Assessment & Plan Principal Problem: Left distal femur periprosthetic fracture today I discussed the diagnosis of a left distal femur periprosthetic fracture as well as my recommendation for a retrograde nailing versus lateral plating of the left femur. We discussed the indications, risk, benefits, alternatives to recovery in detail. Specific risks discussed include but not limited to bleeding, infection, pain, scarring, need for further procedure, nerve/blood vessel/tendoninjury, malunion, nonunion, hardware failure/irritation, further fracture, blood clots, knee stiffness, and the medical and anesthetic risks of surgery. He gave informed consent wished to proceed with a retrograde nailing of left distal femur fracture versus lateral plating. To the OR tomorrow. Hospital Electronically signed by Chuy Johnson MD 09/25/2024 at 3:57 PM * Bonnie Velasquez RN - 09/25/2024 1:40 PM EDTAssociated Order(s): IP CONSULT TO CARE COORDINATION; IP CONSULT TO SOCIAL WORK Care Coordination Initial Assessment Home Environment Type of Residence: Private residence Living Arrangements: Alone Support System: Spouse/significant other, Family members Accessibility Issues: None Patient returning to prior living situation? No Affect/Behavior: Appropriate Prior/Regular Transportation: Family, Friend, Self Needs assistance with transportation:No ADL Screen Current Sensory Deficits: None Patient's Vision Adequate to Safely complete ADLs:Yes Patient's Judgement Adequate to safely completed ADLs: Yes Dressing: Independent Current Home Care Services: Current Home Care Services: None Assistive DevicesYes Patient's Judgement Adequate to Safely Complete Daily Activities: Yes Dressing: Independent Special/Community Services: None Transition Needs Expected Discharge Date: Unknown Home or Post Acute Services Needed: In home services, Home/self care Does the patient have the ability to fill and receive their discharge medications: Yes Discharge plan discussed: The discharge plan was discussed with patient. Discharge Barriers: Test(s) Pending, Activity Type of Assistive Devices Needed for Discharge: None Patient Discharge Goal: Home Health Care, Home Mandated Reporting: Not applicable CM consulted on patient for SNF. CM visited patient at bedside. Patient verbalized his ex- and granddaughter were with him. He gave verbal permission for CM to discuss his care and complete an assessment with them present. Patient states he lives alone and PLOF was independent prior to this admission. He has DME within his home consistent with a walker, cane, and wheelchair. However, patient says he only uses the walker and he uses it within the home daily. He has a history of home health. Previous home health was with [facility] per patient. He states he has no issues regarding medications or the administration of his medications. His ex-, Quynh De La Cruz, will transport home upon discharge. CM informed patient about being consulted for SNF placement for the patient. He expressed he was not interested in SNF, but would be interested in home health. Patient/family provided with [facility] approved choice list and patient choice letter along with quality data link to access Medicare.gov Care Compare website to review potential post-acute providers. Choice provided to patient/family, and patient preferences received and referral(s) submitted to requested providers. Patient stated he would be staying with his ex- upon discharge and asked if I would bring a list of home health providers in the area of [place]. CM provided patient with a list of home health agencies near and/or in [place]. Patient's address for home health will be [address] [place] [id number]. Family is discussing home health agencies and CM will follow up. CM to continue following patient. Referral(s) submitted to: Pending family decision Bonnie Velasquez RN documented in this encounter OR Notes * Op Note - Chuy Johnson MD - 09/26/2024 12:20 PM EDT Date of procedure: September 26, 2024 Preoperative Diagnosis: Left distal femur periprosthetic fracture Postoperative diagnosis: Same Procedure performed: Retrograde nailing of left distal femur periprosthetic fracture Surgeon: Chuy Johnson MD Assistants: Courtney surgical assistant certified Anesthesia: General EBL: 200 mls Complications: None apparent Tourniquet time: Not used Implants: Synthes 400 mm x 10 mm, 20 degree retrograde nail. 4 distal interlocking screws. 2 proximal interlocking screws. Medications: 1 g of TXA was given at incision and closure. 2 g of Ancef was given prior to tourniquet inflation. Local anesthetic was injected in the subcutaneous tissues on closure. Indications for procedure: Mr. Castorena is a pleasant 63-year-old male who presented to the ER with a left distal femur periprosthetic fracture. Implant was stable based on imaging. Therefore I recommend a retrograde nailing of left distal femur periprosthetic fracture versus lateral plating. We discussed the indications, risk,benefits, alternatives recovery in detail. He knows that there is an elevated risk of nonunion withthese fractures. Other risks discussed include but not limited to bleeding, infection, pain, scarring, need for further procedure, malunion, nonunion, hardware failure/irritation, nerve/blood vessel/tendon injury, further fracture, knee stiffness, and the medical and anesthetic risk for surgery. He gave informed consent wished to proceed. Description of procedure: The patient was met in the preoperative holding area where the correct patient, side and site were confirmed. The left leg knee was marked with an indelible marker. With their permission they were brought back to the operating room where anesthesia was induced. They were positioned on the operatingroom table and all bony prominences were well-padded. The leg was prepped and draped in the usual sterile fashion. Preincisional antibiotics were given. A formal timeout was performed with all team members in the room to confirm the correct patient, side, site and procedure. We began by placing skeletal traction through the proximal tibia. Approximately 10 pounds of weightwas hung off the end of the table. The fracture was reduced over a triangle with towel bumps. Once good reduction was obtained we made a longitudinal incision through the skin and in line with the patellar tendon. Guide pin was placed in the center of the femoral canal and slightly posterior on thelateral. This was advanced. Opening reamer was used. Then passed a ball- tipped guidewire to the proximal femur. Nail was measured to be approximately 40 cm. We then reamed to an 11.5 mm reamer. Nail was then placed. This was locked with 4 distal interlocking screws as well as 2 proximal interlocking screws using perfect coeur d'alene technique. A locking cap was placed distally. The targeting guide was then removed. We took final fluoroscopy images in the AP and lateral plane to confirm good placementof hardware and fracture reduction. The incisions were thoroughly irrigated. Deep fascia was closed with #1 Vicryl's as well as #1 Vicryl's in the patellar tendon. 2-0 Vicryl in subcutaneous layer followed by antolin in the skin. Sterile bandages were placed followed by a large Vern wrap. At the end of the procedure all sponge needle and instrument counts were correct. The patient was awoken from anesthesia and taken to PACU in good condition. I was present and scrubbed for all vazquez aspects of the procedure. Postoperative plan: Weightbearing as tolerated on the operative extremity with a walker. We will consult PT and OT Early ambulation and SCDs will be applied for mechanical DVT prophylaxis. Chemical DVT prophylaxis will consist of Lovenox daily x 3 weeks followed by aspirin daily x 3 months Antibiotics will be continued for 23 hours postop. Follow-up in 2 weeks with me in the office. documented in this encounter Miscellaneous Notes * Plan of Care - Elizabeth Abernathy RN - 09/29/2024 5:42 PM EDT Problem: Knowledge Deficit Goal: Patient/family/caregiver demonstrates understanding of disease process, treatment plan, medications, and discharge instructions Description: Complete learning assessment and assess knowledge base. Outcome: Adequate for Discharge Problem: Potential for Falls Goal: Patient will remain free of falls Description: Assess and monitor vitals signs, neurological status including level of consciousness and orientation. Reassess fall risk per hospital policy.Ensure arm band on, uncluttered walking paths in room, adequate room lighting, call light and overbed table within reach, bed in low position, wheels locked, side rails up per policy, and non-skid footwear provided. Outcome: Adequate for Discharge Problem: Pain Goal: Patient's pain/discomfort is manageable Description: Assess and monitor patient's pain using appropriate pain scale. Collaborate with interdisciplinary team and initiate plan and interventions as ordered. Re-assess patient's pain level after pain management intervention. Outcome: Adequate for Discharge Problem: Safety Goal: Patient will be injury free during hospitalization Description: Assess and monitor vitals signs, neurological status including level of consciousness and orientation. Assess patient's risk for falls and implement fall prevention plan of care and interventions per hospital policy. Ensure arm band on, uncluttered walking paths in room, adequate room lighting, call light and overbed table within reach, bed in low position, wheels locked, side rails up per policy, and non-skid footwear provided. Outcome: Adequate for Discharge Problem: Daily Care Goal: Daily care needs are met Description: Assess and monitor ability to perform self care and identify potential discharge needs. Outcome: Adequate for Discharge Problem: METABOLIC/FLUID AND ELECTROLYTES Goal: Electrolytes maintained within normal limits Outcome: Adequate for Discharge Goal: Hemodynamic stability and optimal renal function maintained Outcome: Adequate for Discharge Problem: SKIN/TISSUE INTEGRITY Goal: Incision(s), wounds(s) or drain site(s) healing without S/S of infection Outcome: Adequate for Discharge Problem: MUSCULOSKELETAL Goal: Return mobility to safest level of function Outcome: Adequate for Discharge Goal: Maintain proper alignment of affected body part Outcome: Adequate for Discharge Goal: Return ADL status to a safe level of function Description: INTERVENTIONS: Outcome: Adequate for Discharge Problem: Compromised Skin Integrity Goal: LTG - Patient will be free from infection Outcome: Adequate for Discharge Goal: LTG - Patient will maintain/improve skin integrity through proper skin care techniques Outcome: Adequate for Discharge Goal: LTG - Patient will demonstrate appropriate pressure relief techniques Outcome: Adequate for Discharge Goal: LTG - Patient will demonstrate appropriate skin care techniques Outcome: Adequate for Discharge Goal: LTG - Patient will be free from infection Outcome: Adequate for Discharge Goal: STG - Patient demonstrates skin care/treatment/dressing change Outcome: Adequate for Discharge Goal: STG - Patient will maintain good skin integrity Outcome: Adequate for Discharge Goal: STG - Patient exhibits signs of wound healing. Outcome: Adequate for Discharge Goal: STG - Patient demonstrates pressure reduction techniques Outcome: Adequate for Discharge Goal: STG - Patient demonstrates preventative skin care measures Outcome: Adequate for Discharge * Plan of Care - Mary Mazariegos - 09/28/2024 10:20 PM EDT Problem: Knowledge Deficit Goal: Patient/family/caregiver demonstrates understanding of disease process, treatment plan, medications, and discharge instructions Description: Complete learning assessment and assess knowledge base. Outcome: Progressing Problem: Potential for Falls Goal: Patient will remain free of falls Description: Assess and monitor vitals signs, neurological status including level of consciousness and orientation. Reassess fall risk per hospital policy.Ensure arm band on, uncluttered walking paths in room, adequate room lighting, call light and overbed table within reach, bed in low position, wheels locked, side rails up per policy, and non-skid footwear provided. Outcome: Progressing Problem: Pain Goal: Patient's pain/discomfort is manageable Description: Assess and monitor patient's pain using appropriate pain scale. Collaborate with interdisciplinary team and initiate plan and interventions as ordered. Re-assess patient's pain level after pain management intervention. Outcome: Progressing Problem: Safety Goal: Patient will be injury free during hospitalization Description: Assess and monitor vitals signs, neurological status including level of consciousness and orientation. Assess patient's risk for falls and implement fall prevention plan of care and interventions per hospital policy. Ensure arm band on, uncluttered walking paths in room, adequate room lighting, call light and overbed table within reach, bed in low position, wheels locked, side rails up per policy, and non-skid footwear provided. Outcome: Progressing Problem: Daily Care Goal: Daily care needs are met Description: Assess and monitor ability to perform self care and identify potential discharge needs. Outcome: Progressing Problem: METABOLIC/FLUID AND ELECTROLYTES Goal: Electrolytes maintained within normal limits Outcome: Progressing Goal: Hemodynamic stability and optimal renal function maintained Outcome: Progressing Problem: SKIN/TISSUE INTEGRITY Goal: Incision(s), wounds(s) or drain site(s) healing without S/S of infection Outcome: Progressing Problem: MUSCULOSKELETAL Goal: Return mobility to safest level of function Outcome: Progressing Goal: Maintain proper alignment of affected body part Outcome: Progressing Goal: Return ADL status to a safe level of function Description: INTERVENTIONS: Outcome: Progressing Problem: Compromised Skin Integrity Goal: LTG - Patient will be free from infection Outcome: Progressing Goal: LTG - Patient will maintain/improve skin integrity through proper skin care techniques Outcome: Progressing Goal: LTG - Patient will demonstrate appropriate pressure relief techniques Outcome: Progressing Goal: LTG - Patient will demonstrate appropriate skin care techniques Outcome: Progressing Goal: LTG - Patient will be free from infection Outcome: Progressing Goal: STG - Patient demonstrates skin care/treatment/dressing change Outcome: Progressing Goal: STG - Patient will maintain good skin integrity Outcome: Progressing Goal: STG - Patient exhibits signs of wound healing. Outcome: Progressing Goal: STG - Patient demonstrates pressure reduction techniques Outcome: Progressing Goal: STG - Patient demonstrates preventative skin care measures Outcome: Progressing * Plan of Care - Modesta Hull RN - 09/26/2024 10:29 PM EDT Problem: Knowledge Deficit Goal: Patient/family/caregiver demonstrates understanding of disease process, treatment plan, medications, and discharge instructions Description: Complete learning assessment and assess knowledge base. Outcome: Progressing Problem: Potential for Falls Goal: Patient will remain free of falls Description: Assess and monitor vitals signs, neurological status including level of consciousness and orientation. Reassess fall risk per hospital policy.Ensure arm band on, uncluttered walking paths in room, adequate room lighting, call light and overbed table within reach, bed in low position, wheels locked, side rails up per policy, and non-skid footwear provided. Outcome: Progressing Problem: Pain Goal: Patient's pain/discomfort is manageable Description: Assess and monitor patient's pain using appropriate pain scale. Collaborate with interdisciplinary team and initiate plan and interventions as ordered. Re-assess patient's pain level after pain management intervention. Outcome: Progressing Problem: Safety Goal: Patient will be injury free during hospitalization Description: Assess and monitor vitals signs, neurological status including level of consciousness and orientation. Assess patient's risk for falls and implement fall prevention plan of care and interventions per hospital policy. Ensure arm band on, uncluttered walking paths in room, adequate room lighting, call light and overbed table within reach, bed in low position, wheels locked, side rails up per policy, and non-skid footwear provided. Outcome: Progressing Problem: Daily Care Goal: Daily care needs are met Description: Assess and monitor ability to perform self care and identify potential discharge needs. Outcome: Progressing Problem: METABOLIC/FLUID AND ELECTROLYTES Goal: Electrolytes maintained within normal limits Outcome: Progressing Goal: Hemodynamic stability and optimal renal function maintained Outcome: Progressing Problem: SKIN/TISSUE INTEGRITY Goal: Incision(s), wounds(s) or drain site(s) healing without S/S of infection Outcome: Progressing Problem: MUSCULOSKELETAL Goal: Return mobility to safest level of function Outcome: Progressing Goal: Maintain proper alignment of affected body part Outcome: Progressing Goal: Return ADL status to a safe level of function Description: INTERVENTIONS: Outcome: Progressing Problem: Compromised Skin Integrity Goal: LTG - Patient will be free from infection Outcome: Progressing Goal: LTG - Patient will maintain/improve skin integrity through proper skin care techniques Outcome: Progressing Goal: LTG - Patient will demonstrate appropriate pressure relief techniques Outcome: Progressing Goal: LTG - Patient will demonstrate appropriate skin care techniques Outcome: Progressing Goal: LTG - Patient will be free from infection Outcome: Progressing Goal: STG - Patient demonstrates skin care/treatment/dressing change Outcome: Progressing Goal: STG - Patient will maintain good skin integrity Outcome: Progressing Goal: STG - Patient exhibits signs of wound healing. Outcome: Progressing Goal: STG - Patient demonstrates pressure reduction techniques Outcome: Progressing Goal: STG - Patient demonstrates preventative skin care measures Outcome: Progressing * Plan of Care - Tomas Horner RN - 09/26/2024 12:21 PM EDT Problem: Knowledge Deficit Goal: Patient/family/caregiver demonstrates understanding of disease process, treatment plan, medications, and discharge instructions Description: Complete learning assessment and assess knowledge base. Outcome: Progressing Problem: Potential for Falls Goal: Patient will remain free of falls Description: Assess and monitor vitals signs, neurological status including level of consciousness and orientation. Reassess fall risk per hospital policy.Ensure arm band on, uncluttered walking paths in room, adequate room lighting, call light and overbed table within reach, bed in low position, wheels locked, side rails up per policy, and non-skid footwear provided. Outcome: Progressing Problem: Pain Goal: Patient's pain/discomfort is manageable Description: Assess and monitor patient's pain using appropriate pain scale. Collaborate with interdisciplinary team and initiate plan and interventions as ordered. Re-assess patient's pain level after pain management intervention. Outcome: Progressing Problem: Safety Goal: Patient will be injury free during hospitalization Description: Assess and monitor vitals signs, neurological status including level of consciousness and orientation. Assess patient's risk for falls and implement fall prevention plan of care and interventions per hospital policy. Ensure arm band on, uncluttered walking paths in room, adequate room lighting, call light and overbed table within reach, bed in low position, wheels locked, side rails up per policy, and non-skid footwear provided. Outcome: Progressing Problem: Daily Care Goal: Daily care needs are met Description: Assess and monitor ability to perform self care and identify potential discharge needs. Outcome: Progressing Problem: METABOLIC/FLUID AND ELECTROLYTES Goal: Electrolytes maintained within normal limits Outcome: Progressing Goal: Hemodynamic stability and optimal renal function maintained Outcome: Progressing Problem: SKIN/TISSUE INTEGRITY Goal: Incision(s), wounds(s) or drain site(s) healing without S/S of infection Outcome: Progressing Problem: MUSCULOSKELETAL Goal: Return mobility to safest level of function Outcome: Progressing Goal: Maintain proper alignment of affected body part Outcome: Progressing Goal: Return ADL status to a safe level of function Description: INTERVENTIONS: Outcome: Progressing Problem: Compromised Skin Integrity Goal: LTG - Patient will be free from infection Outcome: Progressing Goal: LTG - Patient will maintain/improve skin integrity through proper skin care techniques Outcome: Progressing Goal: LTG - Patient will demonstrate appropriate pressure relief techniques Outcome: Progressing Goal: LTG - Patient will demonstrate appropriate skin care techniques Outcome: Progressing Goal: LTG - Patient will be free from infection Outcome: Progressing Goal: STG - Patient demonstrates skin care/treatment/dressing change Outcome: Progressing Goal: STG - Patient will maintain good skin integrity Outcome: Progressing Goal: STG - Patient exhibits signs of wound healing. Outcome: Progressing Goal: STG - Patient demonstrates pressure reduction techniques Outcome: Progressing Goal: STG - Patient demonstrates preventative skin care measures Outcome: Progressing * Plan of Care - Shannan Daniels RN - 09/25/2024 10:17 PM EDT Problem: Knowledge Deficit Goal: Patient/family/caregiver demonstrates understanding of disease process, treatment plan, medications, and discharge instructions Description: Complete learning assessment and assess knowledge base. Outcome: Progressing Problem: Potential for Falls Goal: Patient will remain free of falls Description: Assess and monitor vitals signs, neurological status including level of consciousness and orientation. Reassess fall risk per hospital policy.Ensure arm band on, uncluttered walking paths in room, adequate room lighting, call light and overbed table within reach, bed in low position, wheels locked, side rails up per policy, and non-skid footwear provided. Outcome: Progressing Problem: Pain Goal: Patient's pain/discomfort is manageable Description: Assess and monitor patient's pain using appropriate pain scale. Collaborate with interdisciplinary team and initiate plan and interventions as ordered. Re-assess patient's pain level after pain management intervention. Outcome: Progressing Problem: Safety Goal: Patient will be injury free during hospitalization Description: Assess and monitor vitals signs, neurological status including level of consciousness and orientation. Assess patient's risk for falls and implement fall prevention plan of care and interventions per hospital policy. Ensure arm band on, uncluttered walking paths in room, adequate room lighting, call light and overbed table within reach, bed in low position, wheels locked, side rails up per policy, and non-skid footwear provided. Outcome: Progressing Problem: Daily Care Goal: Daily care needs are met Description: Assess and monitor ability to perform self care and identify potential discharge needs. Outcome: Progressing Problem: METABOLIC/FLUID AND ELECTROLYTES Goal: Electrolytes maintained within normal limits Outcome: Progressing Goal: Hemodynamic stability and optimal renal function maintained Outcome: Progressing Problem: SKIN/TISSUE INTEGRITY Goal: Incision(s), wounds(s) or drain site(s) healing without S/S of infection Outcome: Progressing Problem: MUSCULOSKELETAL Goal: Return mobility to safest level of function Outcome: Progressing Goal: Maintain proper alignment of affected body part Outcome: Progressing Goal: Return ADL status to a safe level of function Description: INTERVENTIONS: Outcome: Progressing * Plan of Care - Jed Dumont RN - 09/25/2024 4:53 PM EDT Problem: Knowledge Deficit Goal: Patient/family/caregiver demonstrates understanding of disease process, treatment plan, medications, and discharge instructions Description: Complete learning assessment and assess knowledge base. Outcome: Progressing Problem: Potential for Falls Goal: Patient will remain free of falls Description: Assess and monitor vitals signs, neurological status including level of consciousness and orientation. Reassess fall risk per hospital policy.Ensure arm band on, uncluttered walking paths in room, adequate room lighting, call light and overbed table within reach, bed in low position, wheels locked, side rails up per policy, and non-skid footwear provided. Outcome: Progressing Problem: Pain Goal: Patient's pain/discomfort is manageable Description: Assess and monitor patient's pain using appropriate pain scale. Collaborate with interdisciplinary team and initiate plan and interventions as ordered. Re-assess patient's pain level after pain management intervention. Outcome: Progressing Problem: Safety Goal: Patient will be injury free during hospitalization Description: Assess and monitor vitals signs, neurological status including level of consciousness and orientation. Assess patient's risk for falls and implement fall prevention plan of care and interventions per hospital policy. Ensure arm band on, uncluttered walking paths in room, adequate room lighting, call light and overbed table within reach, bed in low position, wheels locked, side rails up per policy, and non-skid footwear provided. Outcome: Progressing Problem: Daily Care Goal: Daily care needs are met Description: Assess and monitor ability to perform self care and identify potential discharge needs. Outcome: Progressing Problem: METABOLIC/FLUID AND ELECTROLYTES Goal: Electrolytes maintained within normal limits Outcome: Progressing Goal: Hemodynamic stability and optimal renal function maintained Outcome: Progressing Problem: SKIN/TISSUE INTEGRITY Goal: Incision(s), wounds(s) or drain site(s) healing without S/S of infection Outcome: Progressing Problem: MUSCULOSKELETAL Goal: Return mobility to safest level of function Outcome: Progressing Goal: Maintain proper alignment of affected body part Outcome: Progressing Goal: Return ADL status to a safe level of function Description: INTERVENTIONS: Outcome: Progressing documented in this encounter Plan of Treatment Scheduled Referrals Name Type Priority Associated Diagnoses Order Schedule Ambulatory referral to Home Health Outpatient Referral Routine Femur fracture, left (HCC) Expected: 09/25/2024, Expires: 09/25/2025 documented as of this encounter Procedures Procedure Name Priority Date/Time Associated Diagnosis Comments CBC W/ AUTO DIFF Routine 09/29/2024 4:19 AM EDT COMPREHENSIVE METABOLIC PANEL Routine 09/29/2024 4:19 AM EDT CBC W/ AUTO DIFF Routine 09/28/2024 3:35 AM EDT COMPREHENSIVE METABOLIC PANEL Routine 09/28/2024 3:35 AM EDT CBC W/ AUTO DIFF Routine 09/27/2024 4:22 AM EDT PT/INR, PTT Routine 09/27/2024 4:22 AM EDT AMMONIA Routine 09/27/2024 4:22 AM EDT COMPREHENSIVE METABOLIC PANEL Routine 09/27/2024 4:22 AM EDT US ABDOMEN LIMITED Routine 09/26/2024 4: 30 PM EDT XR FEMUR LEFT STAT 09/26/2024 1:09 PM EDT FL < 1 HOUR Routine 09/26/2024 12:30 PM EDT [place] OPTX FEM SHFT FX W/INSJ IMED IMPLT W/WO SCREW 09/26/2024 10:49 AM EDT Knee injury CBC W/ AUTO DIFF Routine 09/26/2024 2:4 2 AM EDT MAGNESIUM Routine 09/26/2024 2:42 AM EDT VITAMIN B12 Routine 09/26/2024 2:42 AM EDT BASIC METABOLIC PANEL Routine 09/26/2024 2:42 AM EDT FS_MODEL_IP_ECG 12-LEAD Routine 09/25/2024 3:12 PM EDT XR CHEST AP PORTABLE Routine 09/25/2024 1:48 PM EDT EKG-SCANNED 09/25/2024 documented in this encounter Results * (ABNORMAL) Comprehensive metabolic panel (09/29/2024 4:19 AM EDT) Sodium 133(L) 136 - 146 meq/L 09/29/2024 5:44 AM EDT [facility] Potassium 3.5 3.5 - 5.1 meq/L 09/29/2024 5:44 AM EDT [facility] Chloride 105 102 - 112 meq/L 09/29/2024 5:44 AM EDT [facility] CO2 22 21 - 32 meq/L 09/29/2024 5:44 AM EDT [facility] Calcium 7.8(L) 8.5 - 10.1 mg/dL 09/29/2024 5:44 AM EDT [facility] Glucose 89 74 - 106 mg/dL 09/29/2024 5:44 AM EDT [facility] BUN 8 7 - 22 mg/dL 09/29/2024 5:44 AM EDT [facility] Creatinine 1.03 0.70 - 1.30 mg/dL 09/29/2024 5:44 AM EDT [facility] BUN/Creatinine 8 8 - 20 09/29/2024 5:44 AM EDT [facility] Albumin 2.1(L) 3.4 - 5.0 g/dL 09/29/2024 5:44 AM EDT [facility] Alkaline Phosphatase 74 27 - 136 U/L 09/29/2024 5:44 AM EDT [facility] ALT 25 12 - 78 U/L 09/29/2024 5:44 AM EDT [facility] AST 29 5 - 37 U/L 09/29/2024 5:44 AM EDT [facility] Total Bilirubin 0.8 0.2 - 1.3 mg/dL 09/29/2024 5:44 AM EDT [facility] Protein, Total 5.9(L) 6.4 - 8.2 gm/dL 09/29/2024 5:44 AM EDT [facility] Anion Gap 10 9 - 20 09/29/2024 5:44 AM T [facility] A/G Ratio 0.6(L) 1.1 - 2.5 09/29/2024 5:44 AM T [facility] Globulin 3.8 1.5 - 4.5 g/dL 09/29/2024 5:44 AM [facility] Osmolality Calc 264.2 mOsm/kg 5:44 AM [facility] eGFR (mL/min/1.73m2) >60 >=60 mL/min/1.7 3m2 09/29/2024 5:44 AM [facility] Comment:ESTIMATED GFR IS NOT ACCURATE CREATININE CLEARANCE IN PREDICTING GLOMERULAR FILTRATION RATE. ESTIMATED GFR IS NOT APPLICABLE FOR DIALYSIS PATIENTS. Blood Venipuncture / Unknown 09/29/2024 4:19 AM EDT 09/29/2024 4:23 AM EDT us Johnny Stacy MD LAB BLOOD ORDERABLES Final Result [facility] [address] [place], [place] [address] [phone] * (ABNORMAL) CBC with automated diff (09/29/2024 4:19 AM EDT) WBC 4.3 3.9 - 10.0 K/ L 09/29/2024 4:32 AM EDT [facility] RBC 2.43(L) 4.63 - 6.08 M/ L 09/29/2024 4:32 AM EDT [facility] Hemoglobin 9.5(L) 11.2 - 15.7 GM/DL 09/29/2024 4:32 AM EDT [facility] Hematocrit 28.0(L) 40.1 - 51.0 % 09/29/2024 4:32 AM EDT [facility] MCV 115(H) 79 - 95 fL 09/29/2024 4:32 AM EDT [facility] MCH 39.1(H) 25.6 - 32.2 pg 09/29/2024 4:32 AM EDT [facility] MCHC 33.9 32.3 - 36.5 GM/DL 09/29/2024 4:32 AM EDT [facility] RDW 12.7 11.6 - 14.4 % 09/29/2024 4:32 AM EDT [facility] Platelets 88(L) 163 - 369 K/CU MM 09/29/2024 4:32 AM EDT [facility] MPV 10.8 9.4 - 12.4 fL 09/29/2024 4:32 AM EDT [facility] % Neutros 61 34 - 68 % 09/29/2024 4:32 AM EDT [facility] % Lymphs 25 19 - 53 % 09/29/2024 4:32 AM EDT [facility] % Monos 9 4 - 13 % 09/29/2024 4:32 AM EDT [facility] % Eos 4 1 - 7 % 09/29/2024 4:32 AM EDT [facility] % Baso 1 0 - 1 % 09/29/2024 4:32 AM EDT [facility] # Neutros 2.62 1.56 - 6.13 K/ L 09/29/2024 4:32 AM EDT [facility] # Lymphs 1.08(L) 1.18 - 3.74 K/ L 09/29/2024 4:32 AM EDT [facility] # Monos 0.39 0.24 - 0.82 K/ L 09/29/2024 4:32 AM EDT [facility] # Eos 0.15 0.04 - 0.54 K/ L 09/29/2024 4:32 AM EDT [facility] # Baso 0.02 0.01 - 0.08 K/ L 09/29/2024 4:32 AM EDT [facility] Immature Granulocytes-Re lative 0.20 0.00 - 0.60 % 09/29/2024 4:32 AM EDT [facility] # IG 0.01 0.00 - 0.05 K/uL 09/29/2024 4:32 AM EDT [facility] Blood Venipuncture / Unknown 09/29/2024 4:19 AM EDT 09/29/2024 4:23 AM EDT Narrative [facility] - 09/29/2024 4:32 AM EDT When CBC w/ Auto Diff is ordered the lab will add a Manual Differential as a quality check at no additional charge if: Lymphocytes greater than seventy five percent with normal or increased WBC Monocytes greater than Fifteen percent Basophil greater than four percent Bands >10% or several immature myeloids are seen on scan Blast? Flag noted Atypical Lymph flag noted us Johnny Stacy MD LAB BLOOD ORDERABLES Final Result [facility] [address] [phone] * (ABNORMAL) Comprehensive metabolic panel (09/28/2024 3:35 AM EDT) Sodium 134(L) 136 - 146 meq/L 09/28/2024 4:23 AM EDT [facility] Potassium 4.5 3.5 - 5.1 meq/L 09/28/2024 4:23 AM EDT [facility] Chloride 104 102 - 112 meq/L 09/28/2024 4:23 AM EDT [facility] CO2 23 21 - 32 meq/L 09/28/2024 4:23 AM EDT [facility] Calcium 8.4(L) 8.5 - 10.1 mg/dL 09/28/2024 4:23 AM [facility] Glucose 94 74 - 106 mg/dL 09/28/2024 4:23 AM [facility] BUN 14 7 - 22 mg/dL 09/28/2024 4:23 AM [facility] Creatinine 1.21 0.70 - 1.30 mg/dL 09/28/2024 4:23 AM [facility] BUN/Creatinine 12 8 - 20 09/28/2024 4:23 AM [facility] Albumin 2.4(L) 3.4 - 5.0 g/dL 09/28/2024 4:23 AM [facility] Alkaline Phosphatase 83 27 - 136 U/L 09/28/2024 4:23 AM [facility] ALT 32 12 - 78 U/L 09/28/2024 4:23 AM [facility] AST 43(H) 5 - 37 U/L 09/28/2024 4:23 AM [facility] Total Bilirubin 0.8 0.2 - 1.3 mg/dL 09/28/2024 4:23 AM [facility] Protein, Total 6.6 6.4 - 8.2 gm/dL 09/28/2024 4:23 AM [facility] Anion Gap 12 9 - 20 09/28/2024 4:23 AM [facility] A/G Ratio 0.6(L) 1.1 - 2.5 09/28/2024 4:23 AM [facility] Globulin 4.2 1.5 - 4.5 g/dL 09/28/2024 4:23 AM [facility] Osmolality Calc 268.5 mOsm/kg 4:23 AM [facility] eGFR (mL/min/1.73m2) >60 >=60 mL/min/1.7 3m2 09/28/2024 4:23 AM [facility] Comment:ESTIMATED GFR IS NOT ACCURATE CREATININE CLEARANCE IN PREDICTING GLOMERULAR FILTRATION RATE. ESTIMATED GFR IS NOT APPLICABLE FOR DIALYSIS PATIENTS. Blood Venipuncture / Unknown 09/28/2024 3:35 AM EDT 09/28/2024 3:50 AM EDT us Johnny Stacy MD LAB BLOOD ORDERABLES Final Result [facility] [address] [phone] * (ABNORMAL) CBC with automated diff (09/28/2024 3:35 AM EDT) WBC 5.8 3.9 - 10.0 K/ L 09/28/2024 4:07 AM EDT [facility] RBC 2.57(L) 4.63 - 6.08 M/ L 09/28/2024 4:07 AM EDT [facility] Hemoglobin 10.1(L) 11.2 - 15.7 GM/DL 09/28/2024 4:07 AM EDT [facility] Hematocrit 29.6(L) 40.1 - 51.0 % 09/28/2024 4:07 AM EDT [facility] MCV 115(H) 79 - 95 fL 09/28/2024 4:07 AM EDT [facility] MCH 39.3(H) 25.6 - 32.2 pg 09/28/2024 4:07 AM EDT [facility] MCHC 34.1 32.3 - 36.5 GM/DL 09/28/2024 4:07 AM EDT [facility] RDW 12.6 11.6 - 14.4 % 09/28/2024 4:07 AM EDT [facility] Platelets 79(L) 163 - 369 K/CU MM 09/28/2024 4:07 AM EDT [facility] MPV 10.6 9.4 - 12.4 fL 09/28/2024 4:07 AM EDT [facility] % Neutros 69(H) 34 - 68 % 09/28/2024 4:07 AM EDT [facility] % Lymphs 20 19 - 53 % 09/28/2024 4:07 AM EDT [facility] % Monos 9 4 - 13 % 09/28/2024 4:07 AM EDT [facility] % Eos 2 1 - 7 % 09/28/2024 4:07 AM EDT [facility] % Baso 0 0 - 1 % 09/28/2024 4:07 AM EDT [facility] # Neutros 3.96 1.56 - 6.13 K/ L 09/28/2024 4:07 AM EDT [facility] # Lymphs 1.15(L) 1.18 - 3.74 K/ L 09/28/2024 4:07 AM EDT [facility] # Monos 0.50 0.24 - 0.82 K/ L 09/28/2024 4:07 AM EDT [facility] # Eos 0.10 0.04 - 0.54 K/ L 09/28/2024 4:07 AM EDT [facility] # Baso 0.02 0.01 - 0.08 K/ L 09/28/2024 4:07 AM EDT [facility] Immature Granulocytes-Re lative 0.90(H) 0.00 - 0.60 % 09/28/2024 4:07 AM EDT [facility] # IG 0.05 0.00 - 0.05 K/uL 09/28/2024 4:07 AM EDT [facility] Blood Venipuncture / Unknown 09/28/2024 3:35 AM EDT 09/28/2024 3:49 AM EDT Narrative [facility] - 09/28/2024 4:07 AM EDT When CBC w/ Auto Diff is ordered the lab will add a Manual Differential as a quality check at no additional charge if: Lymphocytes greater than seventy five percent with normal or increased WBC Monocytes greater than Fifteen percent Basophil greater than four percent Bands >10% or several immature myeloids are seen on scan Blast? Flag noted Atypical Lymph flag noted us Johnny Stacy MD LAB BLOOD ORDERABLES Final Result [facility] [address] [phone] * Ammonia (09/27/2024 4:22 AM EDT) Ammonia 22 11 - 32 mol/L 09/27/2024 6:00 AM EDT [facility] Blood Venipuncture / Unknown 09/27/2024 4:22 AM EDT 09/27/2024 5:16 AM EDT us Johnny Stacy MD LAB BLOOD ORDERABLES Final Result Performing Organization Address [facility] Co de Phone Number [facility] [address] [phone] * PT/INR, PTT (09/27/2024 4:22 AM EDT) aPTT 28.1 22.0 - 32.0 seconds 09/27/2024 5:38 AM EDT [facility] Protime 10.9 9.0 - 12.0 seconds 09/27/2024 5:38 AM EDT [facility] INR 1.00 0.80 - 1.10 09/27/2024 5:38 AM EDT [facility] Blood Venipuncture / Unknown 09/27/2024 4:22 AM EDT 09/27/2024 5:14 AM EDT us Johnny Stacy MD LAB BLOOD ORDERABLES Final Result Performing Organization Address City/[facility] de Phone Number [facility] [address] [phone] * (ABNORMAL) Comprehensive metabolic panel (09/27/2024 4:22 AM EDT) Sodium 132(L) 136 - 146 meq/L 09/27/2024 6:00 AM EDT [facility] Potassium 4.5 3.5 - 5.1 meq/L 09/27/2024 6:00 AM EDT [facility] Chloride 104 102 - 112 meq/L 09/27/2024 6:00 AM EDT [facility] CO2 22 21 - 32 meq/L 09/27/2024 6:00 AM EDT [facility] Calcium 8.4(L) 8.5 - 10.1 mg/dL 09/27/2024 6:00 AM [facility] Glucose 98 74 - 106 mg/dL 09/27/2024 6:00 AM [facility] BUN 15 7 - 22 mg/dL 09/27/2024 6:00 AM [facility] Creatinine 1.30 0.70 - 1.30 mg/dL 09/27/2024 6:00 AM [facility] BUN/Creatinine 12 8 - 20 09/27/2024 6:00 AM [facility] Albumin 2.3(L) 3.4 - 5.0 g/dL 09/27/2024 6:00 AM [facility] Alkaline Phosphatase 67 27 - 136 U/L 09/27/2024 6:00 AM [facility] ALT 34 12 - 78 U/L 09/27/2024 6:00 AM [facility] AST 41(H) 5 - 37 U/L 09/27/2024 6:00 AM [facility] Total Bilirubin 1.0 0.2 - 1.3 mg/dL 09/27/2024 6:00 AM [facility] Protein, Total 6.2(L) 6.4 - 8.2 gm/dL 09/27/2024 6:00 AM [facility] Anion Gap 11 9 - 20 09/27/2024 6:00 AM [facility] A/G Ratio 0.6(L) 1.1 - 2.5 09/27/2024 6:00 AM [facility] Globulin 3.9 1.5 - 4.5 g/dL 09/27/2024 6:00 AM [facility] Osmolality Calc 265.3 mOsm/kg 6:00 AM [facility] eGFR (mL/min/1.73m2) >60 >=60 mL/min/1.7 3m2 09/27/2024 6:00 AM [facility] Comment:ESTIMATED GFR IS NOT ACCURATE CREATININE CLEARANCE IN PREDICTING GLOMERULAR FILTRATION RATE. ESTIMATED GFR IS NOT APPLICABLE FOR DIALYSIS PATIENTS. Blood Venipuncture / Unknown 09/27/2024 4:22 AM EDT 09/27/2024 5:14 AM EDT us Johnny Stacy MD LAB BLOOD ORDERABLES Final Result [facility] [address] [place] [address], [facility] [phone] * (ABNORMAL) CBC with automated diff (09/27/2024 4:22 AM EDT) WBC 7.2 3.9 - 10.0 K/ L 09/27/2024 5:42 AM EDT [facility] RBC 2.63(L) 4.63 - 6.08 M/ L 09/27/2024 5:42 AM EDT [facility] Hemoglobin 10.3(L) 11.2 - 15.7 GM/DL 09/27/2024 5:42 AM EDT [facility] Hematocrit 30.9(L) 40.1 - 51.0 % 09/27/2024 5:42 AM EDT [facility] MCV 118(H) 79 - 95 fL 09/27/2024 5:42 AM EDT [facility] MCH 39.2(H) 25.6 - 32.2 pg 09/27/2024 5:42 AM EDT [facility] MCHC 33.3 32.3 - 36.5 GM/DL 09/27/2024 5:42 AM EDT [facility] RDW 12.7 11.6 - 14.4 % 09/27/2024 5:42 AM EDT [facility] Platelets 78(L) 163 - 369 K/CU MM 09/27/2024 5:42 AM EDT [facility] MPV 11.0 9.4 - 12.4 fL 09/27/2024 5:42 AM EDT [facility] % Neutros 85(H) 34 - 71 % 09/27/2024 5:42 AM EDT [facility] % Lymphs 10(L) 19 - 53 % 09/27/2024 5:42 AM EDT [facility] % Monos 4 4 - 13 % 09/27/2024 5:42 AM EDT [facility] % Eos 1 1 - 7 % 09/27/2024 5:42 AM EDT [facility] % Baso 0 0 - 1 % 09/27/2024 5:42 AM EDT [facility] # Neutros 6.09 1.56 - 6.13 K/ L 09/27/2024 5:42 AM EDT [facility] # Lymphs 0.75(L) 1.18 - 3.74 K/ L 09/27/2024 5:42 AM EDT [facility] # Monos 0.25 0.24 - 0.82 K/ L 09/27/2024 5:42 AM EDT [facility] # Eos 0.04 0.04 - 0.54 K/ L 09/27/2024 5:42 AM EDT [facility] # Baso 0.02 0.01 - 0.08 K/ L 09/27/2024 5:42 AM EDT [facility] Immature Granulocytes-Re lative 0.70(H) 0.00 - 0.60 % 09/27/2024 5:42 AM EDT [facility] # IG 0.05 0.00 - 0.05 K/uL 09/27/2024 5:42 AM EDT [facility] Blood Venipuncture / Unknown 09/27/2024 4:22 AM EDT 09/27/2024 5:14 AM EDT Narrative [facility] - 09/27/2024 5:42 AM EDT When CBC w/ Auto Diff is ordered the lab will add a Manual Differential as a quality check at no additional charge if: Lymphocytes greater than seventy five percent with normal or increased WBC Monocytes greater than Fifteen percent Basophil greater than four percent Bands >10% or several immature myeloids are seen on scan Blast? Flag noted Atypical Lymph flag noted us Johnny Stacy MD LAB BLOOD ORDERABLES Final Result [facility] 150 Healthy Humans [place] [id number], [facility] [phone] * US abdomen limited (09/26/2024 4:30 PM EDT) Anatomical Region Laterality Modality Abdomen Ultrasound 09/26/2024 9:33 PM EDT Impressions 09/26/2024 10:05 PM EDT 1. Heterogeneous liver with increased echogenicity consistent with fatty infiltration. No evidence of cirrhosis. 2. Distended gallbladder without stones or ductal dilation. 3. Renal cortical thinning. No hydronephrosis. 4. Normal size spleen. Images reviewed, interpreted, dictated and electronically signed by Favian Terrell MD Voice workforce development assistant technology ([email or web address]) is used for the dictation of this note and sound-alike words might be erroneously placed despite reviewing this note for accuracy. Errors in dictation may reflect use of voice recognition software and not all errors in workforce development assistant may have been detected prior to signing. Narrative 09/26/2024 10:05 PM EDT RIGHT UPPER QUADRANT ULTRASOUND HISTORY: Macrocytosis, thrombocytopenia. Alcohol abuse. PROCEDURE: Ultrasound images of the right upper quadrant were obtained. FINDINGS: The liver is heterogeneous with coarse architecture. There is increased echogenicity consistent with fatty infiltration. The liver is normal in size. There are small hypoechoic areas likely representing cysts measuring up to 7 mm within the left hepatic lobe. The gallbladder is distended. There are no stones or sludge. There is no wall thickening or pericholecystic fluid. The common bile duct measures 6 mm which is within normal limits. There is significant renal cortical thinning. There is no hydronephrosis. The right kidney measures 10.1 x 6 x 4.7 cm. The right renal volume is 148 mL. The spleen is normal in size at 11.3 cm. The spleen is homogeneous. Procedure Note Favian Terrell MD - 09/26/2024 RIGHT UPPER QUADRANT ULTRASOUND HISTORY: Macrocytosis, thrombocytopenia. Alcohol abuse. PROCEDURE: Ultrasound images of the right upper quadrant were obtained. FINDINGS: The liver is heterogeneous with coarse architecture. There is increased echogenicity consistent with fatty infiltration. The liver is normal in size. There are small hypoechoic areas likely representing cysts measuring up to 7 mm within the left hepatic lobe. The gallbladder is distended. There are no stones or sludge. There is no wall thickening or pericholecystic fluid. The common bile duct measures 6 mm which is within normal limits. There is significant renal cortical thinning. There is no hydronephrosis. The right kidney measures 10.1 x 6 x 4.7 cm. The right renal volume is 148 mL. The spleen is normal in size at 11.3 cm. The spleen is homogeneous. IMPRESSION: 1. Heterogeneous liver with increased echogenicity consistent with fatty infiltration. No evidence of cirrhosis. 2. Distended gallbladder without stones or ductal dilation. 3. Renal cortical thinning. No hydronephrosis. 4. Normal size spleen. Images reviewed, interpreted, dictated and electronically signed by Favian Terrell MD Voice workforce development assistant technology ([email or web address]) is used for the dictation of this note and sound-alike words might be erroneously placed despite reviewing this note for accuracy. Errors in dictation may reflect use of voice recognition software and not all errors in workforce development assistant may have been detected prior to signing. us Johnny Stacy [facility] ORDER[facility] Final Re sult * XR FEMUR LEFT (09/26/2024 1:09 PM EDT) Anatomical Region Laterality Modality Femur X-Ray 09/26/2024 1:54 PM EDT Impressions 09/26/2024 2:16 PM EDT Comminuted distal femoral fracture with intramedullary joe and postoperative changes of total knee arthroplasty. Images reviewed, interpreted, and dictated by Dr. Leisa Garrido. Transcribed by Jessica Pierre PA-C. Narrative 09/26/2024 2:16 PM EDT LEFT FEMUR SERIES HISTORY: Acute left leg pain, postoperative. COMPARISON: None. FINDINGS: A five view exam demonstrates a comminuted distal femoral fracture. An intramedullary joe is noted. There are postoperative changes of total knee arthroplasty. The joint spaces appear unremarkable. Procedure Note Liu Garrido MD - 09/26/2024 LEFT FEMUR SERIES HISTORY: Acute left leg pain, postoperative. COMPARISON: None. FINDINGS: A five view exam demonstrates a comminuted distal femoral fracture. An intramedullary joe is noted. There are postoperative changes of total knee arthroplasty. The joint spaces appear unremarkable. IMPRESSION: Comminuted distal femoral fracture with intramedullary joe and postoperative changes of total knee arthroplasty. Images reviewed, interpreted, and dictated by Dr. Leisa Garrido. Transcribed by Jessica Pierre PA-C. Chuy Johnson MD [facility] DIAGNOSTIC IMAGING ORDERABLE S Final Result * Fluoroscopy less than 1 hour (09/26/2024 12:30 PM EDT) Anatomical Region Laterality Modality X-Ray 09/27/2024 7:55 AM EDT Impressions 09/27/2024 8:40 AM EDT Please see postoperative report. Images reviewed, interpreted, and dictated by Dr. Rudy Atkins. Transcribed by David Ledezma PA-C. Narrative 09/27/2024 8:40 AM EDT FLUOROSCOPY WITH FILMS HISTORY: left proximal knee fx w/ nailing Fluoroscopic guidance was provided under the direction of the clinical service for intraoperative procedure. 19 digital spot radiographs were obtained for hip pinning. Fluoroscopy time was 2.1 minutes. RADIATION DOSE: Reference air kerma 17 mGy. Procedure Note Rudy Atkins DO - 09/27/2024 FLUOROSCOPY WITH FILMS HISTORY: left proximal knee fx w/ nailing Fluoroscopic guidance was provided under the direction of the clinical service for intraoperative procedure. 19 digital spot radiographs were obtained for hip pinning. Fluoroscopy time was 2.1 minutes. RADIATION DOSE: Reference air kerma 17 mGy. IMPRESSION: Please see postoperative report. Images reviewed, interpreted, and dictated by Dr. Rudy Atkins. Transcribed by David Ledezma PA-C. Chuy Johnson MD [facility] FLUOROSCOPY ORDERABLES Final Result * (ABNORMAL) Basic Metabolic Panel (09/26/2024 2:42 AM EDT) Sodium 133(L) 136 - 146 meq/L 09/26/2024 3:44 AM EDT [facility] Potassium 4.1 3.5 - 5.1 meq/L 09/26/2024 3:44 AM EDT [facility] Chloride 102 102 - 112 meq/L 09/26/2024 3:44 AM EDT [facility] CO2 25 21 - 32 meq/L 09/26/2024 3:44 AM EDT [facility] Anion Gap 10 9 - 20 09/26/2024 3:44 AM EDT [facility] BUN 9 7 - 22 mg/dL 09/26/2024 3:44 AM EDT [facility] Creatinine 1.21 0.70 - 1.30 mg/dL 09/26/2024 3:44 AM EDT [facility] BUN/Creatinine 7(L) 8 - 20 09/26/2024 3:44 AM EDT [facility] Glucose 84 74 - 106 mg/dL 09/26/2024 3:44 AM EDT [facility] Calcium 8.8 8.5 - 10.1 mg/dL 09/26/2024 3:44 AM EDT [facility] Osmolality Calc 264.3 mOsm/kg 3:44 AM EDT [facility] eGFR (mL/min/1.73m2) >60 >=60 mL/min/1.7 3m2 09/26/2024 3:44 AM EDT [facility] Comment:eGFR of <60 suggests chronic kidney disease if found over a 3 month period of time. eGFR <15 indicates renal failure. Blood Venipuncture / Unknown 09/26/2024 2:42 AM EDT 09/26/2024 2:45 AM EDT us Moose Granda MD LAB BLOOD ORDERABLES Final Resul t [facility] [address] [phone] * (ABNORMAL) CBC with automated diff (09/26/2024 2:42 AM EDT) WBC 5.2 3.9 - 10.0 K/ L 09/26/2024 2:52 AM EDT [facility] RBC 3.36(L) 4.63 - 6.08 M/ L 09/26/2024 2:52 AM EDT [facility] Hemoglobin 13.1 11.2 - 15.7 GM/DL 09/26/2024 2:52 AM EDT [facility] Hematocrit 38.4(L) 40.1 - 51.0 % 09/26/2024 2:52 AM EDT [facility] MCV 114(H) 79 - 95 fL 09/26/2024 2:52 AM EDT [facility] MCH 39.0(H) 25.6 - 32.2 pg 09/26/2024 2:52 AM EDT [facility] MCHC 34.1 32.3 - 36.5 GM/DL 09/26/2024 2:52 AM EDT [facility] RDW 13.0 11.6 - 14.4 % 09/26/2024 2:52 AM EDT [facility] Platelets 106(L) 163 - 369 K/CU MM 09/26/2024 2:52 AM EDT [facility] MPV 11.4 9.4 - 12.4 fL 09/26/2024 2:52 AM EDT [facility] % Neutros 67 34 - 68 % 09/26/2024 2:52 AM EDT [facility] % Lymphs 25 19 - 53 % 09/26/2024 2:52 AM EDT [facility] % Monos 6 4 - 13 % 09/26/2024 2:52 AM EDT [facility] % Eos 1 1 - 7 % 09/26/2024 2:52 AM EDT [facility] % Baso 1 0 - 1 % 09/26/2024 2:52 AM EDT [facility] # Neutros 3.53 1.56 - 6.13 K/ L 09/26/2024 2:52 AM EDT [facility] # Lymphs 1.29 1.18 - 3.74 K/ L 09/26/2024 2:52 AM EDT [facility] # Monos 0.29 0.24 - 0.82 K/ L 09/26/2024 2:52 AM EDT [facility] # Eos 0.07 0.04 - 0.54 K/ L 09/26/2024 2:52 AM EDT [facility] # Baso 0.03 0.01 - 0.08 K/ L 09/26/2024 2:52 AM EDT [facility] Immature Granulocytes-Re lative 0.60 0.00 - 0.60 % 09/26/2024 2:52 AM EDT [facility] # IG 0.03 0.00 - 0.05 K/uL 09/26/2024 2:52 AM EDT [facility] Blood Venipuncture / Unknown 09/26/2024 2:42 AM EDT 09/26/2024 2:45 AM EDT Narrative [facility] - 09/26/2024 2:52 AM EDT When CBC w/ Auto Diff is ordered the lab will add a Manual Differential as a quality check at no additional charge if: Lymphocytes greater than seventy five percent with normal or increased WBC Monocytes greater than Fifteen percent Basophil greater than four percent Bands >10% or several immature myeloids are seen on scan Blast? Flag noted Atypical Lymph flag noted Moose Granda MD LAB BLOOD ORDERABLES Final Resul t Performing Organization Address City/[facility]/ZIP Co de Phone Number [facility] [address] [phone] * Vitamin B12 (09/26/2024 2:42 AM EDT) Vitamin B12 285 193 - 986 pg/mL 09/26/2024 3:44 AM EDT [facility] Blood Venipuncture / Unknown 09/26/2024 2:42 AM EDT 09/26/2024 2:45 AM EDT Moose Granda MD LAB BLOOD ORDERABLES Final Resul t [facility] [address] [phone] * Magnesium (09/26/2024 2:42 AM EDT) Magnesium 1.8 1.5 - 2.4 mg/dL 09/26/2024 3:44 AM EDT [facility] Blood Venipuncture / Unknown 09/26/2024 2:42 AM EDT 09/26/2024 2:45 AM EDT Moose Granda MD LAB BLOOD ORDERABLES Final Resul t Performing Organization Address City/[facility] Co de Phone Number [facility] [address] [phone] * ECG 12 lead (09/25/2024 3:12 PM EDT) VENTRICULAR RATE EKG/MIN 87 BPM GE MUSE ATRIAL RATE (MCT) 87 BPM GE MUSE [place] Interval 122 ms GE MUSE QRS-INTERVAL (MSEC) 80 ms GE MUSE QT Interval 364 ms GE MUSE QTC Interval 438 ms GE MUSE P [place] 30 degrees GE MUSE R AXIS (MCT) 44 degrees GE MUSE T Wave [place] 41 degrees GE MUSE [place] Diagnosis Normal sinus rhythm Normal ECG No previous ECGs available Confirmed by Anju DURON SUZANNE ([id number]) on 09/26/2024 10:57:46 AM GE MUSE 09/25/2024 3:12 PM EDT 09/26/2024 10:57 AM EDT Moose Granda MD ECG ORDERABLES Final Result Performing Organization Address [facility] de Phone Number GE MUSE * XR chest AP portable (09/25/2024 1:48 PM EDT) Anatomical Region Laterality Modality Chest X-Ray 09/25/2024 3:02 PM EDT Impressions 09/25/2024 3:04 PM EDT No acute process. Images reviewed, interpreted, and dictated by Dr. Rudy Atkins. Transcribed by Berkley Chin PA-C. Narrative 09/25/2024 3:04 PM EDT PORTABLE CHEST; HISTORY: Shortness of air, COPD. COMPARISON: March 2011. FINDINGS: The heart is normal in size. The mediastinum is unremarkable. There are chronic changes bilaterally. There is no evidence of acute infiltrate or effusion. There is no pneumothorax. Procedure Note Rudy Atkins DO - 09/25/2024 PORTABLE CHEST; HISTORY: Shortness of air, COPD. COMPARISON: March 2011. FINDINGS: The heart is normal in size. The mediastinum is unremarkable. There are chronic changes bilaterally. There is no evidence of acute infiltrate or effusion. There is no pneumothorax. IMPRESSION: No acute process. Images reviewed, interpreted, and dictated by Dr. Rudy Atkins. Transcribed by Berkley Chin PA-C. Moose Granda MD [facility] DIAGNOSTIC IMAGING ORDERABLE S Final Result * EKG-SCANNED (09/25/2024) Narrative 09/25/2024 Ordered by an unspecified provider. us Default Scanning Provider SCAN ORDERS Final Result documented in this encounter Visit Diagnoses Diagnosis Femur fracture, left (HCC)- Primary Closed fracture of unspecified part of femur Femur fracture, left (HCC) Closed fracture of unspecified part of femur Chronic obstructive pulmonary disease (HCC) Lupus (systemic lupus erythematosus) (HCC) Systemic lupus erythematosus Closed fracture of left distal femur (HCC) documented in this encounter Admitting Diagnoses Diagnosis Femur fracture, left (HCC) Closed fracture of unspecified part of femur Closed fracture of left distal femur (HCC) documented in this encounter Administered Medications Inactive Administered Medications - up to 3 most recent administrations Medication Order MAR Action Action Date Dose Rate Site acetaminophen (TYLENOL) tablet 1,000 mg 1,000 mg Every 6 hours PRN, oral, mild pain (1-3), Starting on Wed09/25/24 at 1112, Recommended maximum dose of acetaminophen is 4000 mg from all sources in 24 hours Given 09/27/2024 5:19 AM EDT 1,000 mg Given 09/26/2024 8:13 PM EDT 1,000 mg Given 09/25/2024 11:20 PM EDT 1,000 mg ceFAZolin (ANCEF) IVPB 2 g/50 mL D5W (premix) 2 g Once, intravenous, Administer over 30 Minutes, On Wed09/26/24 at 1500, For 1 dose, Please choose an indication: Surgical Prophylaxis IVPB Started 09/26/2024 3:41 PM EDT 2 g 100 mL/hr cyanocobalamin injection 1,000 mcg 1,000 mcg Daily, intraMUSCULAR, First dose on Wed09/26/24 at 1530 Given 09/29/2024 8:55 AM EDT 1,000 mcg Right Deltoid Given 09/28/2024 9:15 AM EDT 1,000 mcg Le ft Deltoid Given 09/27/2024 8:38 AM EDT 1,000 mcg Le ft Deltoid enoxaparin (LOVENOX) syringe 40 mg 40 mg Every 24 hours, subcutaneous, First dose on Wed09/27/24 at 0900, Do not administer within 12 hours of epidural or lumbar puncture. Look-Alike/Sound-Alike Alert Given 09/29/2024 8:58 AM EDT 40 mg Abdom inal Tissue Given 09/28/2024 9:15 AM EDT 40 mg Ab dominal Tissue Given 09/27/2024 8:38 AM EDT 40 mg Ab dominal Tissue fentaNYL PF (SUBLIMAZE) injection 25 mcg 25 mcg Every 5 min PRN, intravenous, severe pain (7-10), First Line for pain moderate or greater, Starting on Wed09/26/24 at 1307, For 4 doses, Maximum cumulative dose 100 mcg. If maximum dose is reached, proceed to 2nd Line agent., PACU Given 09/26/2024 1:19 PM EDT 25 mcg folic acid (FOLVITE) tablet 1 mg 1 mg Daily, oral, First dose on Wed09/25/24 at 1830 Given 09/29/2024 8:54 AM EDT 1 mg Given 09/28/2024 9:17 AM EDT 1 mg Given 09/27/2024 8:39 AM EDT 1 mg gabapentin (NEURONTIN) capsule 300 mg 300 mg 3 times daily, oral, First dose on Wed09/25/24 at 1500 Given 09/29/2024 5:05 PM EDT 300 mg Given 09/29/2024 8:54 AM EDT 300 mg Given 09/28/2024 8:23 PM EDT 300 mg heparin injection 5,000 Units 5,000 Units Every 12 hours interval, subcutaneous, First dose on Wed09/25/24 at 1200 Given 09/25/2024 11:21 PM EDT 5,000 Units Abdominal Tissue Given 09/25/2024 11:48 AM EDT 5,000 Units Abdominal Tissue hydroxychloroquine (PLAQUENIL) tablet 200 mg 200 mg Daily, oral, First dose on Wed09/25/24 at 1200 Given 09/28/2024 9:15 AM EDT 200 mg Given 09/25/2024 4:13 PM EDT 200 mg ipratropium-albuteroL (DUO-NEB) 0.5 mg-3 mg(2.5 mg base)/3 mL nebulizer solution 3 mL 3 mL Every 6 hours PRN, nebulization, wheezing, Starting on Wed09/25/24 at 1123, RESPIRATORY THERAPY TREATMENT Protect from Light, What is the respiratory therapy Modality? Small volume Nebulization ketorolac (TORADOL) injection 15 mg 15 mg Once, intravenous, On Wed09/26/24 at 0000, For 1 dose Given 09/26/2024 12:12 AM EDT 15 mg ketorolac (TORADOL) injection 15 mg 15 mg Every 6 hours scheduled, intravenous, First dose on Wed09/26/24 at 1800, For 3 doses Given 09/27/2024 5:19 AM EDT 15 mg Given 09/26/2024 11:26 PM EDT 15 mg Given 09/26/2024 5:17 PM EDT 15 mg lactated Ringer's infusion 100 mL/hr Continuous, intravenous, Starting on Wed09/25/24 at 1200 New Bag 09/29/2024 12:13 AM EDT 100 mL/hr 100 mL/hr New Bag 09/27/2024 4:25 AM EDT 100 mL/hr 100 mL/hr New Bag 09/26/2024 8:19 PM EDT 100 mL/hr 100 mL/hr LORazepam (ATIVAN) tablet 0.5 mg 0.5 mg Every 8 hours PRN, oral, anxiety, Starting on Wed09/25/24 at 1124 Given 09/29/2024 8:54 AM EDT 0.5 mg Given 09/28/2024 8:24 PM EDT 0.5 mg Given 09/27/2024 8:50 PM EDT 0.5 mg morphine injection 4 mg 4 mg Every 4 hours PRN, intravenous, severe pain (7-10), Starting on Wed09/25/24 at 1123, 3rd line analgesic. Give only if inadequate response (less than 50% reduction in pain score) 60 minutes after administration of 2nd line agent. May give in addition to 1st + 2nd line analgesics (+ adjuvants if ordered) Given 09/28/2024 8:24 PM EDT 4 m g Given 09/28/2024 9:15 AM EDT 4 mg Given 09/26/2024 8:13 PM EDT 4 mg multivitamin (THERAGRAN) tablet 1 tablet 1 tablet Daily, oral, First dose on Wed09/25/24 at 1830 Given 09/29/2024 8:55 AM EDT 1 tablet Given 09/28/2024 9:15 AM EDT 1 tablet Given 09/27/2024 8:39 AM EDT 1 tablet naloxone (NARCAN) injection 0.2 mg 0.2 mg Every 2 min PRN, intravenous, opioid reversal, respiratory depression,, Starting on Wed09/25/24 at 1123, Give for respiratory rate less than 10 breaths/min or if patient is difficult to arouse. Max dose = 10mg. Call provider. nicotine (NICODERM CQ) 21 mg/24 hr patch 1 patch 1 patch Daily, transdermal, Administer over 24 Hours, First dose on Wed09/25/24 at 2100, For 14 days Patch Applied 09/28/2024 8:25 PM EDT 1 patch Left Arm Patch Applied 09/27/2024 9:24 PM EDT 1 patch Other Patch Applied 09/26/2024 8:15 PM EDT 1 patch Left Arm NIFEdipine (PROCARDIA-XL) 24 hr tablet 30 mg 30 mg Daily, oral, First dose on Wed09/25/24 at 1200, Do Not Crush or Chew Antihypertensive - Check BP - Check Pulse * DO NOT CRUSH THIS DOSAGE FORM * Given 09/29/2024 8:55 AM EDT 30 mg Given 09/28/2024 9:17 AM EDT 30 mg Given 09/26/2024 9:25 AM EDT 30 mg ondansetron (ZOFRAN) injection 4 mg 4 mg Every 8 hours PRN, intravenous, nausea, vomiting, Starting on Wed09/25/24 at 1112, Give IV if patient is unable to take orally. 1st line If inadequate response within 60 minutes, proceed to next-line agent for same PRN reason or contact provider if no further options ordered. For IV push, give over 2 - 5 minutes. Given 09/25/2024 12:57 PM EDT 4 mg oxyCODONE (ROXICODONE) immediate release tablet 10 mg 10 mg Every 6 hours PRN, oral, severe pain (7-10), Starting on Wed09/25/24 at 1753, Look-alike/Sound-alike medication Given 09/29/2024 12:50 PM EDT 10 mg Given 09/28/2024 11:51 PM EDT 10 mg Given 09/28/2024 2:49 PM EDT 10 mg oxyCODONE (ROXICODONE) immediate release tablet 5 mg 5 mg Every 4 hours PRN, oral, moderate pain (4-6), Starting on Wed09/25/24 at 1122, 2nd line analgesic. Give only if inadequate response (less than 50% reduction in pain score) 60 minutes after administration of 1st line analgesics + adjuvants (if ordered). Look-alike/Sound-alike medication Given 09/29/2024 8:55 AM EDT 5 mg Given 09/27/2024 10:09 AM EDT 5 mg Given 09/25/2024 5:23 PM EDT 5 mg pantoprazole (PROTONIX) EC tablet 40 mg 40 mg Daily, oral, First dose on Wed09/25/24 at 1200, * DO NOT CRUSH THIS DOSAGE FORM * Given 09/29/2024 8:55 AM EDT 4 0 mg Given 09/28/2024 9:17 AM EDT 40 mg Given 09/27/2024 8:39 AM EDT 40 mg polyethylene glycol (GLYCOLAX) packet 17 g 17 g Daily as needed, oral, constipation, Starting on Wed09/25/24 at 1122, Bowel Regimen - for prevention of constipation. sennosides-docusate sodium (SENOKOT S) 8.6-50 mg tablet 1 tablet 1 tablet 2 times daily, oral, First dose on Wed09/25/24 at 1200 Given 09/27/2024 8:39 AM EDT 1 tablet Given 09/26/2024 8:13 PM EDT 1 tablet Given 09/25/2024 8:07 PM EDT 1 tablet sennosides-docusate sodium (SENOKOT S) 8.6-50 mg tablet 1 tablet 1 tablet Every Night PRN, oral, constipation, Starting on Wed09/28/24 at 0900 sodium chloride flush 10 mL 10 mL As needed, intravenous, line care, Starting on Wed09/25/24 at 1112, Every 8 hours and PRN to flush tetrahydrozoline (VISINE) ophthalmic solution 0.05% 1 drop 4 times daily PRN, both eyes, irritation, Starting on Wed09/26/24 at 0056 Given 09/26/2024 1:09 AM E DT 1 drop thiamine tablet 100 mg 100 mg Daily, oral, First dose on Wed09/25/24 at 1830 Given 09/25/2024 6:18 PM EDT 100 mg thiamine tablet 100 mg 100 mg Daily, oral, First dose on Wed09/26/24 at 1600 Given 09/29/2024 8:55 AM EDT 100 mg Given 09/28/2024 9:15 AM EDT 100 mg Given 09/27/2024 8:39 AM EDT 100 mg documented in this encounter Active and Recently Administered Medications Times are shown in EDT. Scheduled Medication Order 09/27/2024 09/28/2024 09/29/2024 cyanocobalamin injection 1,000 mcg 1,000 mcg Daily, intraMUSCULAR, First dose on Wed09/26/24 at 1530 0838 (Given - Provider: Daniel Mao RN) 0915 (Given - Provider: Mc Harrison RN) 0855 (Given - Provider: Elizabeth Abernathy, TORIBIO) enoxaparin (LOVENOX) syringe 40 mg 40 mg Every 24 hours, subcutaneous, First dose on Wed09/27/24 at 0900, Do not administer within 12 hours of epidural or lumbar puncture. Look-Alike/Sound-Alike Alert 0838 (Given - Provider: Daniel Mao RN) 0915 (Given - Provider: Mc Harrison, TORIBIO) 0858 (Given - Provider: Elizabeth Abernathy, TORIBIO) folic acid (FOLVITE) tablet 1 mg 1 mg Daily, oral, First dose on Wed09/25/24 at 1830 0839 (Given - Provider: Daniel Mao RN) 0917 (Given - Provider: Mc Harrison, TORIBIO) 0854 (Given - Provider: Elizabeth Abernathy, TORIBIO) gabapentin (NEURONTIN) capsule 300 mg 300 mg 3 times daily, oral, First dose on Wed09/25/24 at 1500 0839 (Given - Provider: Daniel Mao RN)1601 (Given - Provider: Daniel Mao RN)2050 (Given - Provider: Gonzalez Andrews RN) 0917 (Given - Provider: Mc Harrison RN)1450 (Given - Provider: Mc Harrison RN)2022 (Given - Provider: Mary Mazariegos) 0854 (Given - Provider: Elizabeth Abernathy, TORIBIO)1705 (Given - Provider: Elizabeth Abernathy RN) hydroxychloroquine (PLAQUENIL) tablet 200 mg 200 mg Daily, oral, First dose on Wed09/25/24 at 1200 0900 (Due) 0915 (Given - Provider: Mc Harrison RN) 0908 (Not Given - Provider: Elizabeth Abernathy RN - Reason: Medication/ Dose Unavailable) ketorolac (TORADOL) injection 15 mg (COMPLETED) 15 mg Every 6 hours scheduled, intravenous, First dose on Wed09/26/24 at 1800, For 3 doses 0519 (Given - Provider: Modesta Hull RN) multivitamin (THERAGRAN) tablet 1 tablet 1 tablet Daily, oral, First dose on Wed09/25/24 at 1830 0839 (Given - Provider: Daniel Mao RN) 0915 (Given - Provider: Mc Harrison RN) 0855 (Given - Provider: Elizabeth Abernathy RN) nicotine (NICODERM CQ) 21 mg/24 hr patch 1 patch 1 patch Daily, transdermal, Administer over 24 Hours, First dose on Wed09/25/24 at 2100, For 14 days 2051 (Patch Removed - Provider: Gonzalez Andrews RN)2123 (Patch Applied - Provider: Gonzalez Andrews RN - Comment: Left Shoulder Back) 2023 (Patch Removed - Provider: Mary Mazariegos)2024 (Patch Applied - Provider: Mary Mazariegos) 174 (Due: Patch Removed - Provider: Automatic Discharge Provider - Comment: Time automatically adjusted from order being discontinued) NIFEdipine (PROCARDIA-XL) 24 hr tablet 30 mg 30 mg Daily, oral, First dose on Wed09/25/24 at 1200, Do Not Crush or Chew Antihypertensive - Check BP - Check Pulse * DO NOT CRUSH THIS DOSAGE FORM * 0839 (Not Given - Provider: Daniel Mao RN - Reason: Contraindicated) 0917 (Given - Provider: Mc Harrison RN) 0855 (Given - Provider: Elizabeth Abernathy RN) pantoprazole (PROTONIX) EC tablet 40 mg 40 mg Daily, oral, First dose on Wed09/25/24 at 1200, * DO NOT CRUSH THIS DOSAGE FORM * 0839 (Given - Provider: Daniel Mao RN) 0917 (Given - Provider: Mc Harrison RN) 0855 (Given - Provider: Elizabeth Abernathy RN) sennosides-docusate sodium (SENOKOT S) 8.6-50 mg tablet 1 tablet (CANCELED) 1 tablet 2 times daily, oral, First dose on Wed09/25/24 at 1200 0839 (Given - Provider: Daniel Mao RN)2123 (Not Given - Provider: Gonzalez Andrews RN - Reason: Other (with Comment) - Comment: Pt is having a lot of bowel movements. 7 today) thiamine tablet 100 mg 100 mg Daily, oral, First dose on Wed09/26/24 at 1600 0839 (Given - Provider: Daniel Mao RN) 0915 (Given - Provider: cM Harrison RN) 0855 (Given - Provider: Elizabeth Abernathy RN) Continuous Medication Order 09/27/2024 09/28/2024 09/29/2024 lactated Ringer's infusion 100 mL/hr Continuous, intravenous, Starting on Wed09/25/24 at 1200 0425 (New Bag - Provider: Modesta Hull RN) 0013 (New Bag - Provider: Mary Mazariegos) PRN Medication Order 09/27/2024 09/28/2024 09/29/2024 acetaminophen (TYLENOL) tablet 1,000 mg 1,000 mg Every 6 hours PRN, oral, mild pain (1-3), Starting on Wed09/25/24 at 1112, Recommended maximum dose of acetaminophen is 4000 mg from all sources in 24 hours 0519 (Given - Provider: Modesta Hull RN) ipratropium-albuteroL (DUO-NEB) 0.5 mg-3 mg(2.5 mg base)/3 mL nebulizer solution 3 mL 3 mL Every 6 hours PRN, nebulization, wheezing, Starting on Wed09/25/24 at 1123, RESPIRATORY THERAPY TREATMENT Protect from Light, What is the respiratory therapy Modality? Small volume Nebulization LORazepam (ATIVAN) tablet 0.5 mg 0.5 mg Every 8 hours PRN, oral, anxiety, Starting on Wed09/25/24 at 1124 2049 (Given - Provider: Gonzalez Andrews RN) 2023 (Given - Provider: Mary Mazariegos) 0854 (Given - Provider: Elizabeth Abernathy, TORIBIO) morphine injection 4 mg 4 mg Every 4 hours PRN, intravenous, severe pain (7-10), Starting on Wed09/25/24 at 1123, 3rd line analgesic. Give only if inadequate response (less than 50% reduction in pain score) 60 minutes after administration of 2nd line agent. May give in addition to 1st + 2nd line analgesics (+ adjuvants if ordered) 914 (Given - Provider: Mc Harrison RN)2023 (Given - Provider: Mary Mazariegos) naloxone (NARCAN) injection 0.2 mg 0.2 mg Every 2 min PRN, intravenous, opioid reversal, respiratory depression,, Starting on Wed09/25/24 at 1123, Give for respiratory rate less than 10 breaths/min or if patient is difficult to arouse. Max dose = 10mg. Call provider. oxyCODONE (ROXICODONE) immediate release tablet 10 mg 10 mg Every 6 hours PRN, oral, severe pain (7-10), Starting on Wed09/25/24 at 1753, Look-alike/Sound-alike medication 0519 (Given - Provider: Modesta Hull RN)2050 (Given - Provider: Gonzalez Andrews RN) 075 (Given - Provider: Mc Harrison, TORIBIO)1449 (Given - Provider: Mc Harrison RN)2351 (Given - Provider: Mary Mazariegos) 1250 (Given - Provider: Elizabeth Abernathy, TORIBIO) oxyCODONE (ROXICODONE) immediate release tablet 5 mg 5 mg Every 4 hours PRN, oral, moderate pain (4-6), Starting on Wed09/25/24 at 1122, 2nd line analgesic. Give only if inadequate response (less than 50% reduction in pain score) 60 minutes after administration of 1st line analgesics + adjuvants (if ordered). Look-alike/Sound-alike medication 1009 (Given - Provider: Daniel Mao, TORIBIO) 1450 (Not Given - Provider: Mc Harrison RN - Reason: Other (with Comment) - Comment: Did not give) 0855 (Given - Provider: Elizabeth Abernathy, TORIBIO) polyethylene glycol (GLYCOLAX) packet 17 g 17 g Daily as needed, oral, constipation, Starting on Wed09/25/24 at 1122, Bowel Regimen - for prevention of constipation. sennosides-docusate sodium (SENOKOT S) 8.6-50 mg tablet 1 tablet 1 tablet Every Night PRN, oral, constipation, Starting on Wed09/28/24 at 0900 0917 (Hold - Provider: Mc Harrison RN - Reason: Within Medication Parameters) sodium chloride flush 10 mL(Linked Group 1) 10 mL As needed, intravenous, line care, Starting on Wed09/25/24 at 1112, Every 8 hours and PRN to flush tetrahydrozoline (VISINE) ophthalmic solution 0.05% 1 drop 4 times daily PRN, both eyes, irritation, Starting on Wed09/26/24 at 0056 Linked Groups Order Group 1: Insert Peripheral IV (CANCELED) STAT, Once, On Wed09/25/24 at 1113, For 1 occurrence And Saline Lock IV (CANCELED) Routine, Once, On Wed09/25/24 at 1113, For 1 occurrence And sodium chloride flush 10 mLJump to med 10 mL As needed, intravenous, line care, Starting on Wed09/25/24 at 1112, Every 8 hours and PRN to flush documented in this encounter Care Teams Drilling Contractor Relationship Specialty Start Date End Date Dario Nugent MD [address] [place] [id number] PCP - General Family Medicine 09/25/24 documented as of this encounter
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
--- OUTSIDE RECORDS SUMMARY | 2024-09-26 12:00 | XMS_ITS | Encounter Summary ---
Author Organization [employer] Address [address] [place] [address] Care Team Providers Care Porter Bath Name Role Phone Dario Nugent MD Primary Care Provider [phone] Reason for Visit * Auth/Cert (Routine) Specialty Diagnoses / Procedures Referred By Contac t Referred To Contact Diagnoses Femur fracture, left (HCC) FRACTURE [facility] Telemetry Unit [address] [place] [address] Phone: tel: fax: [facility] Telemetry [address] [place] [address] Phone: tel: fax: Referral ID Status Reason Start Date Expiration Date Visits Re quested Visits Authorized [id number] 1 1 Encounter Details Date Type Department Care Team (Late st Contact Info) Description 09/26/2024 12:00 PM EDT - 09/26/2024 1:37 PM EDT Surgery [facility] Surgery Department [address] [place] [address] Chuy Johnson MD [address] [facility] 2[address] [place] [address] LEFT RETROGRADE NAILING OF KNEE. Social History Tobacco Use Types Packs/Day Years [...] your living situation today? I [facility] place to live 09/25/2024 Think about [...] Do you speak a language other than Malagasy at ho me? No 09/25/2024 Do you want help with [...] Sign Reading Time Taken Comments Blood Pressure 144/59 09/26/2024 1:30 PM EDT Pulse 96 09/26/2024 1:30 PM EDT Temperature 36.7 C (98 F) 09/26/2024 1:30 PM EDT Respiratory Rate 16 09/26/2024 1:35 PM EDT Oxygen Saturation 96% 09/26/2024 1:30 PM EDT Inhaled Oxygen Concentration - - Weight [...] Admission: 63 y.o. male that presents to [facility] in transition of care from /[facility] emergency department for left distal femur fracture that occurred approximately 2 AM in the morning after tripping on a rug, falling and identifying a snap to his left lower extremity. He presented tot ED and imaging identified left distal femur fracture. Orthopedics was contacted out of the ED and his care was transitioned to [facility]. Currently he reports pain 8 on a [...] Budweiser B12 level with macrocytosis on CBC [facility] protocol Seizure precautions Benzodiazepine therapy Gabapentin therapy [...] after he leaves here. Previously went to [facility] rehab with a knee replacement in [...] where most of his family is in [facility]. His ex- linda Jorge [facility] and he plans on going home with her after he leaves the rehab but for now he like to go to someplace closer to [facility]. Discussed with the comp field case manager she is looking into it. [...] that he is open to going to [facility] rehab and I encouraged him to [...] 2024. Nice pleasant gentleman seen with nurse Elizabeth at the bedside working with PT OT [...] Surgeon: Chuy Johnson MD Assistants: Courtney surgical coder Anesthesia: General EBL: 200 mls Complications: None [...] as 2 proximal interlocking screws using perfect [place] technique. A locking cap was placed distally. [...] Your Medications These medications were sent to [facility] - [place], [place] - [address], [facility] [address] acetaminophen 500 MG tablet cyanocobalamin 500 MCG tablet enoxaparin 40 mg/0.4 mL Syrg folic acid 1 MG tablet gabapentin 300 MG capsule hydroxychloroquine 200 mg tablet LORazepam 0.5 MG tablet nicotine 21 mg/24 hr patch NIFEdipine 30 MG (OSM) 24 hr tablet oxyCODONE 10 MG tablet pantoprazole 40 MG tablet Anthony stanley 250 mg capsule thiamine 100 mg Tab tablet Lovenox daily x 3 weeks followed by aspirin daily x 3 months . Vitals: 09/28/24200909/28/24202409/28/24 2345 09/29/24 0445 BP: 129/69 (!) 142/68 [...] Family Medicine Relationship: PCP - General [address] [place] [address] Next Steps: Follow up in 2 week(s) Instructions: cmp cbc Chuy Johnson MD Specialty: Orthopedic Surgery [address] [facility] 2ND Floor [facility] [address] Next Steps: Follow up in 10 day(s) [...] discharged per physician order to rehab facility [facility]. Pt IV removed without issues. Ptverbalized [...] as he is scheduled for discharge to [facility] this afternoon for further rehab. Electronically [...] Discharge Disposition SNF SNF Name and Number [facility] [phone] Transportation Provider [facility] transport Date of supervisor wrapping room 09/29/24 Time of supervisor wrapping room 1100 AURELIANO received notification from Hillary that [facility] does have a bed open now and patient can admit today. Number for report is [phone]. [facility] to transport via , AURELIANO requested transport to provide oxygen for trip also. Patient to be in front lobby at 1100, nurse and provider updated. AURELIANO updated patient and ex-spouse Quynh. 1253: Transport needed to be delayed per [facility]. Patient now ok to admit. Per Hillary transport will now be with [facility] at 1730 and they will come to the room to get patient. AURELIANO updated patient, ex-spouse, nursing and provider. DC summary faxed to unit at [phone]. Packet placed in chart. * Johnny Stacy [...] able to go home with her to [facility]. His primary care doctor is Dr. Ralph Nugent MD longtime primary care doctor up there. He states he went to [facility] in the past after he got [...] Budweiser B12 level with macrocytosis on CBC [facility] protocol Seizure precautions Benzodiazepine therapy Gabapentin therapy [...] after he leaves here. Previously went to [facility] rehab with a knee replacement in [...] where most of his family is in [facility]. His ex- linda [facility] and he plans on going home with her after he leaves the rehab but for now he like to go to someplace closer to [facility]. Discussed with the comp field case manager she is looking into it. [...] that he is open to going to [facility] rehab and I encouraged him to [...] 2024. Nice pleasant gentleman seen with nurse Elizabeth at the bedside working with PT OT [...] days Expected discharge disposition (home, SNF/Rehab, etc): [facility] then after that home with xwife to [facility] with pt ot HH Additional discharge needs or delays: * Stephie Sorto RN - 09/28/2024 2:17 PM EDT AURELIANO received notification from Hillary with [facility] that precert is approved and patient has been placed on list for SRU bed. AURELIANO sent message to Adore to check and see if [facility] could take patient tomorrow if [facility] doesn't have a bed open up by then (could have precert transferred). 1546: updated patient that precert approved for [facility] however they do not currently have an open bed. Advised that need to send out additional SNF referrals. Patient requested to have CM discuss with ex- Quynh. AURELIANO spoke with Quynh and she is agreeable to sending referrals throughout [facility], [facility], and [place]. Referrals sent via [facility]. AURELIANO spoke with Diane with [facility] and she advised no current male beds [...] Progress Note AURELIANO spoke with Hillary with [facility]. Per Hillary, patient's insurance is likely to [...] SNF's for possible back up offer if [facility] can not take. Virgil Glez reviewing. CM updated patient and ex Quynh. MM 09/28/24 Plan: precert started for SRU at [facility], but they do not have open bed [...] 1007 Session Duration 14 minutes CPT CODES: 88054 Gait training x 1 General Visit Type: [...] training. Wheelchair Mobility Not assessed, patient ambulatory. AM-PAC Basic Mobility Inpatient Short Form How much [...] 1960 Date of Treatment: 09/28/24 Start Time: 53 Stop Time: 1007 Session Duration: 14 minutes CPT CODES: 17488 ADL/self-care/home management This patient is a 63 [...] OF KNEE.; Surgeon: Chuy Johnson MD; Location: [facility]; Service:Orthopedic Surgery; Laterality: Left; REPLACEMENT [...] Quynh, she states that family is requesting [facility] referral. CM discussed with patient and he is agreeable. Referral sent via [facility]. * Johnny Stacy MD - 09/28/2024 7:13 [...] able to go home with her to [facility]. His primary care doctor is Dr. Ralph Nugent MD longtime primary care doctor up there. He states he went to [facility] in the past after he got [...] Budweiser B12 level with macrocytosis on CBC [facility] protocol Seizure precautions Benzodiazepine therapy Gabapentin therapy [...] after he leaves here. Previously went to [facility] rehab with a knee replacement in [...] where most of his family is in [facility]. His ex- linda [facility] and he plans on going home with her after he leaves the rehab but for now he like to go to someplace closer to [facility]. Discussed with the comp field case manager she is looking into it. [...] normal size spleen so that is good. , September 28, 2024.Gentleman seen examined with nurse Candice at the [...] [facility] and I encouraged him to consider it [...] (home, SNF/Rehab, etc): snf preferably close to [facility] versus [facility] then after that home with xwife to [facility] with pt ot HH Additional discharge needs or delays: * Stephie Sorto RN - 09/27/2024 2:53 PM EDT Discharge Plan Progress Note CM spoke with [facility] admissions and was advised they do not have access to [facility] to receive referral, however they do not currently have any male beds open at this time. [facility] is still reviewing referral. CM provided patient with additional options to send more referrals. Patient agreeable to sending referrals to [place] and [place] and referrals sent via [facility]. Stephie Sorto RN * Chuy Johnson [...] I will set up follow-up. * Darin Cohen PT - 09/27/2024 10:30 AM EDT Images from the original note were not included. [facility] Multidisciplinary Rounding Form Patient Name: Christian [...] with patient at bedside. ..Patient/family provided with [facility] approved choice list and Patient choice letter along with Quality data link to access Medicare.gov Care Compare website to review potential post-acute providers. Choice provided to patient/family, and patient preferences received and referral(s) submitted to requested providers. Referral(s) submitted to: [facility] Rehab and [facility]. CM left message for liaison Channing with [facility] requesting call back and with [facility] (left message and requested call back). 1102: spoke with Diane at [facility] ([phone]) and she confirms receiving referral and will contact CM after reviewing. 09/27/24 Plan: femur fracture, PT recs rehab. [facility] and [facility]. CM left messages at both facilities, awaiting call back. Will need bed offer and precert. May need assist with transport depending on mobility. Pt is current with [facility] for home health. Stephie Sorto RN * Darin Cohen, PT - 09/27/2024 8:54 AM EDT Images from the original note were not included. Inpatient Physical Therapy Initial Evaluation Patient Name: Christian Castorena Date of : 1960 Date of Evaluation: 09/27/24 In Time 0838 Out Time 0854 Session Duration 16 minutes Time spent for nursing collaboration, chart and systems review, and clinical reasoning. 10 minutes Total Time 26 minutes 39412 Eval mod complex, No charge Rehab each [...] Mobility Not assessed, patient ambulatory. Outcome Measures AM-PAC Basic Mobility Inpatient Short Form How much [...] cannot feel a left pedal pulse. Daniel ROONEY * Malka Villanueva, OTR/L - 09/27/2024 8:34 AM EDT Images from the original note were not included. Inpatient Occupational Therapy Initial Evaluation Patient Name: Christian Castorena Date of : 1960 Date of Evaluation: 09/27/24 Start Time: 833 Stop Time: 856 Session Duration: 23 minutes Total time: 33 minutes spent, including 10 minutes for nursing collaboration, thorough chart and systems review, and clinical reasoning. CPT CODES: 17952 Eval mod complexity and 04650 ADL/self-care/home management This patient is a 63 y.o. male admitted on 09/25/2024 with Femur fracture, left ([facility]) [S72.92XA] Closed fracture of left distal femur ([facility]) [S72.402A]. Past Medical History: Diagnosis Date COPD (chronic obstructive pulmonary disease) ([facility]) Lupus (systemic lupus erythematosus) ([facility]) Neuropathy Osteoarthritis Past Surgical History: [...] IV, telemetry Subjective Subjective: Pt agreeable Pain 9/10 LLE, RN present and aware Cognition Cognition: [...] body dressing:Maximal Assistance Toileting:Maximal Assistance Outcome Measures [facility] Daily Living Functional Assessment How much [...] (Minimal/Contact guard/Supervision/Setup) 4=None (Modified independent/Independent) The patient's [facility] raw score is 16. The patient currently has 53.32% functional impairment. Clinicians are most likely to recommend inpatient/SNF/long chain quiller tender care for patients with scores between 6-17, [...] discharge summary. Electronically signed by ANGELO Willard/Clara Anderson 09/27/2024 - 10:33 AM EDT OT Evaluation [...] able to go home with her to [facility]. His primary care doctor is Dr. Ralph Nugent MD longtime primary care doctor up there. He states he went to [facility] in the past after he got [...] Budweiser B12 level with macrocytosis on CBC [facility] protocol Seizure precautions Benzodiazepine therapy Gabapentin therapy [...] after he leaves here. Previously went to [facility] rehab with a knee replacement in [...] where most of his family is in [facility]. His ex- linda [facility] and he plans on going home with her after he leaves the rehab but for now he like to go to someplace closer to [facility]. Discussed with the comp field case manager she is looking into it. [...] (home, SNF/Rehab, etc): snf preferably close to [facility] then after that home with xwife to [facility] with pt ot HH Additional discharge needs or delays: * Stephie Sorto RN - 09/26/2024 2:11 PM EDT Discharge Plan Progress Note MDR attended with team. Surgery today for Left hip fracture. CM to follow for PT/OT evals after surgery for final discharge needs. CM received notification that patient is current with [facility]. MM 09/26/24 Plan: pt current with [facility] home health. Surgery today for hip fracture. Pt prefers [...] able to go home with her to [facility]. His primary care doctor is Dr. Ralph Nugent MD longtime primary care doctor up there. He states he went to [facility] in the past after he got [...] 87 BPM ATRIAL RATE (MCT) 87 BPM IN Interval 122 ms QRS-INTERVAL (MSEC) 80 ms QT Interval 364 ms QTC Interval 438 ms P Paxton 30 degrees R AXIS (MCT) 44 degrees T Wave Pa[place] 41 degrees [place] Diagnosis Normal sinus rhythm Normal ECG No [...] after he leaves here. Previously went to [facility] rehab with a knee replacement in [...] etc): snf vs home with xwife to [facility] with pt ot HH Additional discharge needs or delays: * ANGELO Willard/Clara - 09/26/2024 7:55 AM EDT Images from [...] from the original note were not included. [facility] Physical Therapy Patient Screening Patient Name: [...] a 63 y.o. male that presents to [facility] in transition of [facility] [place] emergency department for left distal femur fracture that occurred approximately2 AM in the morning after tripping on a rug, falling and identifying a snap to his left lower extremity. He presented to the ED and imaging identified left distal femur fracture. Orthopedics was contacted out of the ED and his care was transitioned to [facility]. Currently he reports pain 8 on a [...] History He is and lives alone in [facility]. He has 3 adult children. He identifies [...] Health Care, Home Mandated Reporting: Not applicable AURELIANO consulted on patient for SNF. CM visited [...] home health. Previous home health was with [facility] per patient. He states he has no issues regarding medications or the administration of his medications. His ex-, Quynh De La Cruz, will transport home upon discharge. CM informed patient about being consulted for SNF placement for the patient. He expressed he was not interested in SNF, but would be interested in home health. Patient/family provided with [facility] approved choice list and patient choice letter [...] home health providers in the area of [place]. CM provided patient with a list of home health agencies near and/or in [place]. Patient's address for home health will be [address] [place] [address]. Family is discussing home health agencies and [...] Surgeon: Chuy Johnson MD Assistants: Courtney surgical coder Anesthesia: General EBL: 200 mls Complications: None [...] was induced. They were positioned on the operating room table and all bony prominences were well-padded. [...] as 2 proximal interlocking screws using perfect [place] technique. A locking cap was placed distally. [...] on, uncluttered walking paths in room, adequate roomlighting, call light and overbed table within reach, bed in low position, wheels locked, side railsup per policy, and non-skid footwear provided. Outcome: [...] 1 HOUR Routine 09/26/2024 12:30 PM EDT IN [facility] FEM SHFT FX W/INSJ IMED IMPLT [...] Comprehensive metabolic panel (09/29/2024 4:19 AM EDT) [facility] Sodium 133(L) 136 - 146 meq/L 09/29/2024 5:44 AM [facility] Potassium 3.5 3.5 - 5.1 meq/L 09/29/2024 5:44 AM [facility] Chloride 105 102 - 112 meq/L 09/29/2024 5:44 AM [facility] CO2 22 21 - 32 meq/L 09/29/2024 5:44 AM [facility] Calcium 7.8(L) 8.5 - 10.1 mg/dL 09/29/2024 5:44 AM [facility] Glucose 89 74 - 106 mg/dL 09/29/2024 5:44 AM [facility] BUN 8 7 - 22 mg/dL 09/29/2024 5:44 AM [facility] Creatinine 1.03 0.70 - 1.30 mg/dL 09/29/2024 5:44 AM [facility] BUN/Creatinine 8 8 - 20 09/29/2024 5:44 AM [facility] Albumin 2.1(L) 3.4 - 5.0 g/dL 09/29/2024 5:44 AM [facility] Alkaline Phosphatase 74 27 - 136 U/L 09/29/2024 5:44 AM [facility] ALT 25 12 - 78 U/L 09/29/2024 5:44 AM [facility] AST 29 5 - 37 U/L 09/29/2024 5:44 AM [facility] Total Bilirubin 0.8 0.2 - 1.3 mg/dL 09/29/2024 5:44 AM [facility] Protein, Total 5.9(L) 6.4 - 8.2 gm/dL 09/29/2024 5:44 AM [facility] Anion Gap 10 9 - 20 09/29/2024 5:44 AM [facility] A/G Ratio 0.6(L) 1.1 - 2.5 09/29/2024 5:44 AM [facility] Globulin 3.8 1.5 - 4.5 g/dL 09/29/2024 5:44 AM [facility] Osmolality Calc 264.2 mOsm/kg 5:44 [...] ORDERABLES Final Result [facility] [address] [phone] * (ABNORMAL) CBC with automated diff (09/29/2024 4:19 AM EDT) WBC 4.3 3.9 - 10.0 K/ L 09/29/2024 4:32 AM EDT [facility] RBC 2.43(L) 4.63 - 6.08 M/ L 09/29/2024 4:32 AM T [facility] Hemoglobin 9.5(L) 11.2 - 15.7 GM/DL 09/29/2024 4:32 AM T [facility] Hematocrit 28.0(L) 40.1 - [...] 4:19 AM EDT 09/29/2024 4:23 AM EDT [facility] - 09/29/2024 4:32 AM EDT When [...] ORDERABLES Final Result [facility] [address] [place] [id number], [facility] [phone] * (ABNORMAL) Comprehensive metabolic panel (09/28/2024 3:35 [...] 3.4 - 5.0 g/dL 09/28/2024 4:23 AM EDT [facility] Alkaline Phosphatase 83 27 - 136 U/L 09/28/2024 4:23 AM EDT [facility] ALT 32 12 - 78 U/L 09/28/2024 4:23 AM EDT [facility] AST 43(H) 5 - 37 U/L 09/28/2024 4:23 AM EDT [facility] Total Bilirubin 0.8 0.2 - 1.3 mg/dL 09/28/2024 4:23 AM EDT [facility] Protein, Total 6.6 6.4 - 8.2 gm/dL 09/28/2024 4:23 AM EDT [facility] Anion Gap 12 9 - 20 09/28/2024 4:23 AM EDT [facility] A/G Ratio 0.6(L) 1.1 - 2.5 09/28/2024 4:23 AM EDT [facility] Globulin 4.2 1.5 - 4.5 g/dL 09/28/2024 4:23 AM EDT [facility] Osmolality Calc 268.5 mOsm/kg 4:23 AM EDT [facility] eGFR (mL/min/1.73m2) >60 >=60 mL/min/1.7 3m2 09/28/2024 4:23 AM EDT [facility] Comment:ESTIMATED GFR IS NOT ACCURATE CREATININE CLEARANCE IN PREDICTING GLOMERULAR FILTRATION RATE. ESTIMATED GFR IS NOT APPLICABLE FOR DIALYSIS PATIENTS. Blood Venipuncture / Unknown 09/28/2024 3:35 AM EDT 09/28/2024 3:50 AM EDT us Johnny Stacy MD LAB BLOOD ORDERABLES Final Result [facility] [address] [place] [id number], [facility] [phone] * (ABNORMAL) CBC with automated diff (09/28/2024 [...] BLOOD ORDERABLES Final Result Performing Organization Address City/[facility]/ZIP Co de Phone Number [facility] [address] [phone] * Ammonia (09/27/2024 4:22 AM EDT) Ammonia 22 11 - 32 mol/L 09/27/2024 6:00 AM EDT [facility] Blood Venipuncture / Unknown 09/27/2024 4:22 AM EDT 09/27/2024 5:16 AM EDT us Johnny Stacy MD LAB BLOOD ORDERABLES Final Result Performing Organization Address City/[facility]/ZIP Co de Phone Number [facility] [address] [phone] * PT/INR, PTT (09/27/2024 4:22 AM EDT) [...] Final Result [facility] [address] [place] [address], [facility] [phone] * (ABNORMAL) Comprehensive metabolic panel (09/27/2024 4:22 [...] 0.70 - 1.30 mg/dL 09/27/2024 6:00 AM EDT [facility] BUN/Creatinine 12 8 - 20 09/27/2024 6:00 AM EDT [facility] Albumin 2.3(L) 3.4 - 5.0 g/dL 09/27/2024 6:00 AM EDT [facility] Alkaline Phosphatase 67 27 - 136 U/L 09/27/2024 6:00 AM EDT [facility] ALT 34 12 - 78 U/L 09/27/2024 6:00 AM EDT [facility] AST 41(H) 5 - 37 U/L 09/27/2024 6:00 AM EDT [facility] Total Bilirubin 1.0 0.2 - 1.3 mg/dL 09/27/2024 6:00 AM EDT [facility] Protein, Total 6.2(L) 6.4 - 8.2 gm/dL 09/27/2024 6:00 AM EDT [facility] Anion Gap 11 9 - 20 09/27/2024 6:00 AM EDT [facility] [facility] A/G Ratio 0.6(L) 1.1 - 2.5 09/27/2024 6:00 AM EDT [facility] Globulin 3.9 1.5 - 4.5 g/dL 09/27/2024 6:00 AM EDT [facility] Osmolality Calc 265.3 mOsm/kg 6:00 AM EDT [facility] eGFR (mL/min/1.73m2) >60 >=60 mL/min/1.7 3m2 09/27/2024 6:00 AM EDT [facility] Comment:ESTIMATED GFR IS NOT ACCURATE CREATININE CLEARANCE IN PREDICTING GLOMERULAR FILTRATION RATE. ESTIMATED GFR IS NOT APPLICABLE FOR DIALYSIS PATIENTS. Blood Venipuncture / Unknown 09/27/2024 4:22 AM EDT 09/27/2024 5:14 AM EDT us Johnny Stacy MD LAB BLOOD ORDERABLES Final Result [facility] [address] [place] [address], [facility] [phone] * (ABNORMAL) CBC with automated diff (09/27/2024 [...] BLOOD ORDERABLES Final Result Performing Organization Address City/State/[facility] Co de Phone Number [facility] [address] [phone] * US abdomen limited (09/26/2024 4:30 PM [...] electronically signed by Favian Terrell MD Voice it systems engineer technology (Vysr) is used for the dictation of this note and sound-alike words might be erroneously placed despite reviewing this note for accuracy. Errors in dictation may reflect use of voice recognition software and not all errors in it systems engineer may have been detected prior to signing. [...] electronically signed by Favian Terrell MD Voice it systems engineer technology ([email or web address]) is used for the dictation of this note and sound-alike words might be erroneously placed despite reviewing this note for accuracy. Errors in dictation may reflect use of voice recognition software and not all errors in it systems engineer may have been detected prior to signing. us Johnny Stacy MD [facility] US ORDERABLES Final Re sult * XR [...] by David Ledezma PA-C. Chuy Johnson MD IM FLUOROSCOPY ORDERABLES Final Result * (ABNORMAL) Basic Metabolic Panel (09/26/2024 2:42 AM EDT) Sodium 133(L) 136 - 146 meq/L 09/26/2024 3:44 AM EDT [facility] Potassium 4.1 3.5 - 5.1 meq/L 09/26/2024 3:44 AM EDT [facility] Chloride 102 102 - 112 meq/L 09/26/2024 3:44 AM EDT [facility] CO2 25 21 - 32 meq/L 09/26/2024 3:[facility] Anion Gap 10 9 - 20 09/26/2024 3:44 AM [facility] BUN 9 7 - 22 mg/dL 09/26/2024 3:44 AM T [facility] Creatinine 1.21 0.70 - 1.30 mg/dL 09/26/2024 3:44 AM T [facility] BUN/Creatinine 7(L) 8 - 20 09/26/2024 3:44 AM EDT [facility] Glucose 84 74 - 106 mg/dL 09/26/2024 3:44 AM [facility] Calcium 8.8 8.5 - 10.1 mg/dL 09/26/2024 3:44 AM [facility] Osmolality Calc 264.3 mOsm/kg 3:44 AM [facility] eGFR (mL/min/1.73m2) >60 >=60 mL/min/1.7 3m2 09/26/2024 3:44 AM T [facility] Comment:eGFR of <60 suggests chronic kidney disease if found over a 3 month period of time. eGFR <15 indicates renal failure. Blood Venipuncture / Unknown 09/26/2024 2:42 AM EDT 09/26/2024 2:45 AM EDT Moose Granda MD LAB BLOOD ORDERABLES Final Resul t [facility] [address] [employer] [place] [id number] [phone] * (ABNORMAL) CBC with automated diff (09/26/2024 [...] Flag noted Atypical Lymph flag noted us Moose Granda MD LAB BLOOD ORDERABLES Final Resul t [facility] [address] [place] [id number] [phone] * Vitamin B12 (09/26/2024 2:42 AM EDT) Pathologist [facility] Vitamin B12 285 193 - 986 pg/mL 09/26/2024 3:44 AM EDT [facility] Blood Venipuncture / Unknown 09/26/2024 2:42 AM EDT 09/26/2024 2:45 AM EDT Moose Granda MD LAB BLOOD ORDERABLES Final Resul t Performing Organization Address [facility] de Phone Number [facility] [address] [phone] * Magnesium (09/26/2024 2:42 AM EDT) [facility] Magnesium 1.8 1.5 - 2.4 mg/dL 09/26/2024 3:44 AM EDT [facility] Blood Venipuncture / Unknown 09/26/2024 2:42 AM EDT 09/26/2024 2:45 AM EDT Moose Granda MD LAB BLOOD ORDERABLES Final Resul t Performing Organization Address [facility] Phone Number [facility] [address] [phone] * ECG 12 lead (09/25/2024 3:12 PM EDT) Pathologist [facility] VENTRICULAR RATE EKG/MIN 87 BPM GE MUSE ATRIAL RATE (MCT) 87 BPM GE MUSE IN Interval 122 ms GE MUSE QRS-INTERVAL (MSEC) 80 ms GE MUSE QT Interval 364 ms GE MUSE QTC Interval 438 ms GE MUSE P [place] 30 degrees GE MUSE R AXIS (MCT) 44 degrees GE MUSE T Wave [place] 41 degrees GE MUSE [place] Diagnosis Normal sinus rhythm Normal ECG No [...] There is no pneumothorax. Procedure Note Rudy Atkins, - 09/25/2024 PORTABLE CHEST; HISTORY: Shortness of [...] (systemic lupus erythematosus) (HCC) Systemic lupus erythematosus Knee injury Injury, other and unspecified, knee, leg, ankle, and foot documented in this encounter Admitting Diagnoses Diagnosis [...] Given 09/25/2024 11:20 PM EDT 1,000 mg BUPivacaine (PF) (MARCAINE) injection As needed, Starting on Wed09/26/24 at 1139, Intra-op Given 09/26/2024 11:39 AM EDT 90 mLs cyanocobalamin injection 1,000 mcg 1,000 mcg Daily, [...] AM EDT 40 mg Ab dominal Tissue EPINEPHrine (ADRENALIN) injection As needed, Starting on Wed09/26/24 at 1139, Intra-op Given 09/26/2024 11:39 AM EDT 0.3 mg Ot her folic acid (FOLVITE) tablet 1 mg 1 [...] Given 09/28/2024 8:23 PM EDT 300 mg hydroxychloroquine (PLAQUENIL) tablet 200 mg 200 mg [...] the respiratory therapy Modality? Small volume Nebulization lactated Ringer's infusion 100 mL/hr Continuous, intravenous, [...] Given 09/26/2024 9:25 AM EDT 30 mg oxyCODONE (ROXICODONE) immediate release tablet 10 [...] Starting on Wed09/28/24 at 0900 sodium chloride (NS) 0.9 % irrigation solution As needed, Starting on Wed09/26/24 at 1139, Intra-op Given 09/26/2024 11:39 AM EDT 1,000 mLs sodium chloride flush 10 mL 10 mL As needed, intravenous, line care, Starting on Wed09/25/24 at 1112, Every 8 hours and PRN to flush tetrahydrozoline (VISINE) ophthalmic solution 0.05% 1 drop 4 times daily PRN, both eyes, irritation, Starting on Wed09/26/24 at 0056 Given 09/26/2024 1:09 AM EDT 1 drop thiamine tablet 100 mg 100 [...] 0915 (Given - Provider: Mc Harrison, TORIBIO) 0855 (Given - Provider: Elizabeth Abernathy, TORIBIO) [...] at 1500 0839 (Given - Provider: Daniel Mao, TORIBIO)1601 (Given - Provider: Daniel Mao, TORIBIO)2051 (Given - Provider: Gonzalez Andrews RN) 0917 (Given - Provider: Mc Harrison, TORIBIO)1450 (Given - Provider: Mc Harrison, TORIBIO)2023 (Given - Provider: Mary Mazariegos) 0854 (Given - Provider: Elizabteh Abernathy, TORIBIO)1705 (Given - Provider: Elizabeth Abernathy, TORIBIO) hydroxychloroquine [...] 0915 (Given - Provider: Mc Harrison, TORIBIO) 0855 (Given - Provider: Elizabeth Abernathy, TORIBIO) nicotine (NICODERM CQ) 21 mg/24 hr patch [...] oral, anxiety, Starting on Wed09/25/24 at 1124 0 (Given - Provider: Gonzalez Andrews RN) 2023 (Given - Provider: Mary Mazariegos) 0854 (Given - Provider: Elizabeth Abernathy RN) morphine injection 4 mg 4 mg Every 4 hours PRN, intravenous, severe pain (7-10), Starting on Wed09/25/24 at 1123, 3rd line analgesic. Give only if inadequate response (less than 50% reduction in pain score) 60 minutes after administration of 2nd line agent. May give in addition to 1st + 2nd line analgesics (+ adjuvants if ordered) 0915 (Given - Provider: Mc Harrison RN)2023 (Given [...] medication 0519 (Given - Provider: Modesta Hull RN)2051 (Given - Provider: Gonzalez Andrews RN) 0752 [...] flush documented in this encounter Care Teams [place] Relationship Specialty Start Date End Date Dario Nugent MD [address] [place] [address] PCP - General Family Medicine 09/25/24 documented as of this encounter
--- OUTSIDE RECORDS SUMMARY | 2024-10-09 09:45 | XMS_ITS ---
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[id number]:10/09/2024 Progress Notes Patient: ROHAN PUGH Provider: Elif Nugent M.D. :1960 A ge:63 Y S ex:Male Date:10/09/2024 Address:[place] [id number] Subjective: * Chief Complaints: * 1 . 3 month check. 2. Needs labs with PSA, low dose chest CT, & Prevnar vaccine. * ROS: D ERMATOLOGY: no R luz. n o H garry. G ASTROENTEROLOGY: no N ausea. n o V omiting. n o D iarrhea.? U ROLOGY: no D ifficulty urinating. n o B lood in urine. * Medical History: L upus, Raynaud's phenomenon, Neuropathy, COPD, 03/21/18 EMG/NCV bilateral carpal tunnel, no radiculopathy or plexopathy, Covid vaccine - Jun 2020, Moderna, COVID 19, Moderna booster, Jan 2021, Flu shot 2020. * Surgical History: s inus surgery , left knee replacement surgery, Dr. Diaz, [facility] 09/05/2018, right knee replacement surgery, Dr. Diaz [facility] 12/05/2018, EGD with biopsy 11/2012, Revision of right knee replacement with Explant antibiotic spacer, Dr Stratton 07/16/22. * Hospitalization/Major Diagno stic Procedure: b lacked out at home and was taken to [facility] ER and admitted 10/2011, [facility] ER - fall/colitis 06/13/2019, [facility] ER - mikaela 04/2020. * Family History: F ather: , lung cancer. M other: alive. 2 son(s) , 1 daughter(s) . . * Social History: C URRENT TOBACCO USE S moking Status: Patient does smoke, packs per day: 2.5, Smoking preference: cigarettes. C affeine: yes, frequency:coffee. Home smoke detector use: yes. Marital Status: . Past smoking status: yes, Smoking status: Patient does smoke, Packs per day: 3, Smoking preference: cigarettes. Alcohol: drinks daily. * Allergies: N .K.D.A. Objective: * Vitals: Assessment: Plan: * Treatment: * Images: Billing Information: * Visit Code: * Procedure Codes: * Electronic signature of Elif Nugent MD on 11/02/2024 at 11:04 AM EDT Sign off status: Pending * Provider: Elif Nugent M.D. Date: 10/09/2024 Generated for Lui palomo/Angelika/Dorianitting on: 11/02/2024 11:04 AM EDT
--- OUTSIDE RECORDS SUMMARY | 2024-10-09 12:13 | XMS_ITS | Summary of Care ---
Author Organization [facility] Address [address] [place] [address]- Care Team Providers Care Biblical Languages Professor Name Role Phone Dario Nugent Primary Care Physician Unavailab le Encounter 09/29/24 - 10/09/24 [facility] [address] [place] [address] Discharge Disposition: 06H Home with Home Health Care Attending Physician: Kiera DANIELLE, Frank Admitting Physician: Kiera DANIELLE, Frank Referring Physician: Chuy Johnson M.D. Allergies, Adverse Reactions, Alerts Substance Criticality Severity Reaction Reaction Severity Status Benadryl Low criticality Mild Incoherent thinking Active Medications amoxicillin-clavulanate 875 mg-125 mg oral tablet 1 tab, Tab, Oral, BID, 4 tab, 0 Refill(s), Indication: Lower Respiratory Tract Infections, Route toPharmacy Electronically, [facility], 185, 09/29/24 18:56:00 EDT, Height/Length Dosing, cm, 82.5, 10/08/24 14:24:00 EDT, kg, Weight Dosing Start Date: 10/09/24 Status: Ordered aspirin 325 mg, Indication: Thrombosis prophylaxis Tab-DR, Oral, Daily, 0 Refill(s) Start Date: 10/09/24 Status: Ordered bifidobacterium-lactobacillus oral capsule 1 cap, Cap, Oral, Daily, 10 cap, 0 Refill(s), Route to Pharmacy Electronically, [facility], 185, 09/29/24 18:56:00 EDT, Height/Length Dosing, cm, 82.5, 10/08/24 14:24:00 EDT, Weight Dosing, kg Start Date: 10/09/24 Status: Ordered cholecalciferol 25 mcg (1000 intl units) oral tablet 25 mcg = 1 tab, Tab, Oral, Daily, 30 tab, 0 Refill(s) Start Date: 09/29/24 Status: Ordered cyanocobalamin 1000 mcg oral tablet 1,000 mcg = 1 tab, Tab, Oral, Daily, 30 tab, 0 Refill(s) Start Date: 09/29/24 Status: Ordered doxycycline hyclate 100 mg oral tablet 100 mg, 1 tab, Tab, Oral, BID, 4 tab, 0 Refill(s), Indication: Lower Respiratory Tract Infections, Route to Pharmacy Electronically, [facility], 185, 09/29/24 18:56:00 EDT, Height/Length Dosing, cm, 82.5, 10/08/24 14:24:00 EDT, kg, Weight Dosing Start Date: 10/09/24 Status: Ordered enoxaparin 40 mg/0.4 mL injectable solution 40 mg, = 0.4 mL, Soln-Inj, Subcutaneous, Daily, 1.6 mL, 0 Refill(s), Dispense: 4 day, Stop date 10/13/24 8:20:00 AM CDT, Route to Pharmacy Electronically, [facility], 185, 09/29/24 18:56:00 EDT, Height/Length Dosing, cm, 82.5, Weight Dosing, 10/08/24 14:24:00 EDT, kg, DVT Prophylaxis Start Date: 10/09/24 Stop Date: 10/13/24 Status: Ordered folic acid 1 mg oral tablet 1 mg = 1 tab, Tab, Oral, Daily, 30 tab, 0 Refill(s), Route to Pharmacy Electronically, [facility], 185, 09/29/24 18:56:00 EDT, Height/Length Dosing, cm, 82.5, 10/08/24 14:24:00 EDT, Weight Dosing, kg Start Date: 10/09/24 Status: Ordered gabapentin 300 mg oral capsule 300 mg, = 1 cap, Indication: Freetext: Enter in Order Comments Cap, Oral, TID, 90 cap, 0 Refill(s),Route to Pharmacy Electronically, [facility], 185, 09/29/24 18:56:00 EDT, Height/Length Dosing, cm, 82.5, 10/08/24 14:24:00 EDT, Weight Dosing, kg Start Date: 10/09/24 Status: Ordered hydroxychloroquine 200 mg oral tablet 200 mg, 1 tab, Tab, Oral, Daily, 30 tab, 0 Refill(s), Route to Pharmacy Electronically, [facility], 185, 09/29/24 18:56:00 EDT, Height/Length Dosing, cm, 82.5, 10/08/24 14:24:00 EDT, Weight Dosing, kg Start Date: 10/09/24 Status: Ordered oxyCODONE 5 mg oral tablet 5 mg = 1 tab, Tab, Oral, q6hr PRN, 12 tab, 0 Refill(s), PAIN (Scale 7-10), Route to Pharmacy Electronically, [facility], 185, 09/29/24 18:56:00 EDT, Height/Length Dosing, cm, 82.5,10/08/24 14:24:00 EDT, kg, Weight Dosing Start Date: 10/09/24 Status: Ordered pantoprazole 20 mg oral delayed release tablet 20 mg = 1 tab, Tab-DR, Oral, Before breakfast, 30 tab, 0 Refill(s) Start Date: 10/09/24 Status: Ordered Pataday Twice A Day Relief 0.1% ophthalmic solution 1 drop, Soln-Opth, OPTH, BID, 0 Refill(s) Start Date: 10/09/24 Status: Ordered thiamine 100 mg oral tablet 100 mg = 1 tab, Tab, Oral, Daily, 30 tab, 0 Refill(s), Dispense: 30 day, Stop date 11/08/24 8:20:00 AM CDT, Route to Pharmacy Electronically, [facility], 185, 09/29/24 18:56:00 EDT, Height/Length Dosing, cm, 82.5, 10/08/24 14:24:00 EDT, Weight Dosing, kg Start Date: 10/09/24 Stop Date: 11/08/24 Status: Ordered Problem List Condition Confirmation Course Effective Dates Status Health St atus Informant Ability to perform ADL - activity of daily living Confirmed Active Activity tolerance Confirmed Active Balance impairment Confirmed Active Cognitive deficit Confirmed Active Gait abnormality Confirmed Active Impaired exercise tolerance Confirmed Active Muscle weakness of lower extremity Confirmed Active Self-care ability Confirmed Active Weakness - general Confirmed Active Results Laboratory List Name Date Basic Metabolic Panel HSL (BMP HSL) 10/06 Complete Blood Count w/Auto Diff HSL (CB C w/Auto Diff HSL) 10/06/24 Manual Diff HSL 10/06/24 C difficile Toxin Gene (PCR) HSL 10/04/24 Automated Diff HSL 10/03/24 Basic Metabolic Panel HSL (BMP HSL) 10/03 Complete Blood Count w/Auto Diff HSL (CB C w/Auto Diff HSL) 10/03/24 Magnesium HSL 10/03/24 Slide Scan HSL 10/03/24 Influenza A/B Ab Nasopharyngeal HSL 10/02 COVID-19 Ag IA BINAX Inhouse - ENC (COVID-19 ([facility] only) Ag IA BINAX Inhouse - [facility]) 10/01/24 Basic Metabolic Panel HSL (BMP HSL) 10/01 Complete Blood Count w/Auto Diff HSL (CB C w/Auto Diff HSL) 10/01/24 Manual Diff HSL 10/01/24 Urinalysis Complete w/Rflx Culture HSL Automated Diff HSL 09/30/24 Comprehensive Metabolic Panel HSL (CMP H SL) 09/30/24 Slide Scan HSL 09/30/24 Most recent to oldest [Reference Range]: 1 2 3 Creatinine Level 1.20 mg/dL (10/06/24 6:44 AM) 1.20 mg/dL (10/03/24 8:26 AM) 1.10 mg/dL (10/01/24 9:43 AM) Creatinine - UN 1.20 mg/dL (10/06/24 6:44 AM) 1.20 mg/dL (10/03/24 8:26 AM) 1.10 mg/dL (10/01/24 9:43 AM) Estimated Creatinine Clearance 69.03 mL/min 1 (10/06/24 6:44 AM) 69.03 mL/min 2 (10/03/24 8:26 AM) 75.19 mL/min 3 (10/01/24 9:43 AM) Corrected WBC HSL [4-12 x10(3)/mcL] 3 x10(3)/mcL *LOW* (10/06/24 6:44 AM) 3 x10(3)/mcL *LOW* (10/03/24 8:26 AM) 7 x10(3)/mcL (10/01/24 9:43 AM) WBC HSL [4.4-11.6 10^3/uL] 3.2 10^3/uL *LOW* (10/06/24 6:44 AM) 3.0 10^3/uL *LOW* (10/03/24 8:26 AM) 6.8 10^3/uL (10/01/24 9:43 AM) RBC HSL [4.10-5.80 10^3/uL] 2.54 10^3/uL *LOW* (10/06/24 6:44 AM) 2.59 10^3/uL *LOW* (10/03/24 8:26 AM) 2.66 10^3/uL *LOW* (10/01/24 9:43 AM) Hemoglobin HSL [13.4-17.6 g/dL] 10.1 g/dL *LOW* (10/06/24 6:44 AM) 10.2 g/dL *LOW* (10/03/24 8:26 AM) 10.6 g/dL *LOW* (10/01/24 9:43 AM) Hematocrit HSL [39.9-53.1 %] 29.7 % *LOW* (10/06/24 6:44 AM) 30.2 % *LOW* (10/03/24 8:26 AM) 31.2 % *LOW* (10/01/24 9:43 AM) MCV HSL [79.9-103.5 fL] 117.2 fL *HI* (10/06/24 6:44 AM) 116.8 fL *HI* (10/03/24 8:26 AM) 117.2 fL *HI* (10/01/24 9:43 AM) MCH HSL [25.9-34.1 g/dL] 39.8 g/dL *HI* (10/06/24 6:44 AM) 39.3 g/dL *HI* (10/03/24 8:26 AM) 40.0 g/dL *HI* (10/01/24 9:43 AM) MCHC HSL [31.9-35.4 g/dL] 33.9 g/dL (10/06/24 6:44 AM) 33.7 g/dL (10/03/24 8:26 AM) 34.1 g/dL (10/01/24 9:43 AM) Platelet HSL [149-451 10^3/uL] 235 10^3/uL (10/06/24 6:44 AM) 160 10^3/uL (10/03/24 8:26 AM) 130 10^3/uL *LOW* (10/01/24 9:43 AM) RDW-CV% HSL [11.5-14.5 %] 13.3 % (10/06/24 6:44 AM) 13.6 % (10/03/24 8:26 AM) 13.6 % (10/01/24 9:43 AM) RDW-SD HSL [35.5-44.0 fL] 56.0 fL *HI* (10/03/24 8:26 AM) 55.6 fL *HI* (09/30/24 8:04 AM) MPV HSL [8.9-13.1 fL] 8.9 fL (10/06/24 6:44 AM) 9.0 fL (10/03/24 8:26 AM) 8.8 fL *LOW* (10/01/24 9:43 AM) Neutrophil Auto HSL [39.6-77.4 %] 54.4 % (10/03/24 8:26 AM) 61.4 % (09/30/24 8:04 AM) Lymphocyte Auto HSL [17.7-51.9 %] 28.7 % (10/03/24 8:26 AM) 21.9 % (09/30/24 8:04 AM) Monocyte Auto HSL [2.9-10.5 %] 10.4 % (10/03/24 8:26 AM) 12.8 % *HI* (09/30/24 8:04 AM) Eosinophil Auto HSL [0.0-7.1 %] 5.5 % (10/03/24 8:26 AM) 3.3 % (09/30/24 8:04 AM) Basophil Auto HSL [0.0-9.1 %] 1.0 % (10/03/24 8:26 AM) 0.6 % (09/30/24 8:04 AM) Neutrophil Absolute HSL [1.1-5.4 10^3/uL] 1.6 10^3/uL (10/03/24 8:26 AM) 2.2 10^3/uL (09/30/24 8:04 AM) Lymphocyte Absolute HSL [0.7-2.8 10^3/uL] 0.9 10^3/uL (10/03/24 8:26 AM) 0.8 10^3/uL (09/30/24 8:04 AM) Monocyte Absolute HSL [0.0-1.1 10^3/uL] 0.3 10^3/uL (10/03/24 8:26 AM) 0.5 10^3/uL (09/30/24 8:04 AM) Eosinophil Absolute HSL [0.0-0.5 10^3/uL] 0.2 10^3/uL (10/03/24 8:26 AM) 0.1 10^3/uL (09/30/24 8:04 AM) Basophil Absolute HSL [0.00-0.06 10^3/uL] 0.00 10^3/uL (10/03/24 8:26 AM) 0.00 10^3/uL (09/30/24 8:04 AM) Nucleated RBC HSL 0.2 *NA* (10/03/24 8:26 AM) 0.1 *NA* (09/30/24 8:04 AM) Segs Man HSL [40-77 %] 51 % (10/06/24 6:44 AM) 85 % *HI* (10/01/24 9:43 AM) Band Man HSL [<=5 %] 2 % (10/06/24 6:44 AM) Lymphocyte Man HSL [18-52 %] 38 % (10/06/24 6:44 AM) 3 % *LOW* (10/01/24 9:43 AM) Monocyte Man HSL [3-10] 5 (10/06/24 6:44 AM) 9 (10/01/24 9:43 AM) Eosinophil Man HSL [<=7 %] 4 % (10/06/24 6:44 AM) 3 % (10/01/24 9:43 AM) Basophil Man HSL [<=1 %] 0 % (10/06/24 6:44 AM) 0 % (10/01/24 9:43 AM) Platelet Estimation HSL Adequate (10/06/24 6:44 AM) Adequate (10/03/24 8:26 AM) Adequate (10/01/24 9:43 AM) RBC Morphology HSL Slightly Abn. *ABN* (10/06/24 6:44 AM) Slightly Abn. *ABN* (10/03/24 8:26 AM) Slightly Abn. *ABN* (10/01/24 9:43 AM) Polychromasia HSL Rare *ABN* (10/03/24 8:26 AM) Rare *ABN* (10/01/24 9:43 AM) Rare *ABN* (09/30/24 8:04 AM) Microcyte HSL Rare *ABN* (10/03/24 8:26 AM) Rare *ABN* (10/01/24 9:43 AM) Rare *ABN* (09/30/24 8:04 AM) Macrocyte HSL 2+ *ABN* (10/06/24 6:44 AM) Anisocyte HSL 1+ *ABN* (10/03/24 8:26 AM) 1+ *ABN* (10/01/24 9:43 AM) 1+ *ABN* (09/30/24 8:04 AM) Sodium HSL [135.9-146.1 mEq/L] 132.0 mEq/L *LOW* (10/06/24 6:44 AM) 133.0 mEq/L *LOW* (10/03/24 8:26 AM) 130.0 mEq/L *LOW* (10/01/24 9:43 AM) Potassium HSL [3.4-4.6 mEq/L] 4.0 mEq/L (10/06/24 6:44 AM) 3.3 mEq/L *LOW* (10/03/24 8:26 AM) 3.7 mEq/L (10/01/24 9:43 AM) Chloride HSL [95.9-106.1 mEq/L] 104.0 mEq/L (10/06/24 6:44 AM) 105.0 mEq/L (10/03/24 8:26 AM) 101.0 mEq/L (10/01/24 9:43 AM) Carbon Dioxide HSL [21.9-29.1 mEq/L] 20.0 mEq/L *LOW* (10/06/24 6:44 AM) 21.0 mEq/L *LOW* (10/03/24 8:26 AM) 19.0 mEq/L *LOW* (10/01/24 9:43 AM) Anion Gap HSL [8-16 mmol/L] 12 mmol/L (10/06/24 6:44 AM) 10 mmol/L (10/03/24 8:26 AM) 14 mmol/L (10/01/24 9:43 AM) Glucose HSL [74.9-115.1 mg/dL] 84.0 mg/dL (10/06/24 6:44 AM) 95.0 mg/dL (10/03/24 8:26 AM) 101.0 mg/dL (10/01/24 9:43 AM) BUN HSL [10.9-23.1 mg/dL] 9.0 mg/dL *LOW* (10/06/24 6:44 AM) 7.0 mg/dL *LOW* (10/03/24 8:26 AM) 9.0 mg/dL *LOW* (10/01/24 9:43 AM) Creatinine HSL [0.6-1.6 mg/dL] 1.2 mg/dL (10/06/24 6:44 AM) 1.2 mg/dL (10/03/24 8:26 AM) 1.1 mg/dL (10/01/24 9:43 AM) eGFR-AA HSL 50 *NA* (10/06/24 6:44 AM) 52 *NA* (10/03/24 8:26 AM) 54 *NA* (10/01/24 9:43 AM) eGFR-Non AA HSL 60 *NA* (10/06/24 6:44 AM) 62 *NA* (10/03/24 8:26 AM) 64 *NA* (10/01/24 9:43 AM) BUN/Creat Ratio HSL [5-20 ratio] 8 ratio (10/06/24 6:44 AM) 6 ratio (10/03/24 8:26 AM) 8 ratio (10/01/24 9:43 AM) Calcium Total HSL [8.9-11.1 mg/dL] 9.1 mg/dL (10/06/24 6:44 AM) 8.7 mg/dL *LOW* (10/03/24 8:26 AM) 8.5 mg/dL *LOW* (10/01/24 9:43 AM) Albumin HSL [3.4-5.1 g/dL] 2.8 g/dL *LOW* (09/30/24 8:04 AM) Protein Total HSL [5.9-8.4 g/dL] 6.0 g/dL (09/30/24 8:04 AM) Bilirubin Total HSL [0.1-1.4 mg/dL] 0.8 mg/dL (09/30/24 8:04 AM) Magnesium HSL [1.6-2.3 mg/dL] 1.9 mg/dL (10/03/24 8:26 AM) Alkaline Phosphatase HSL [19.9-90.1 IU/L] 59.0 IU/L (09/30/24 8:04 AM) AST HSL [9.9-59.1 IU/L] 23.0 IU/L (09/30/24 8:04 AM) ALT HSL [9.9-40.1 IU/L] 16.0 IU/L (09/30/24 8:04 AM) Influenza A Ag HSL Neg (10/02/24 11:00 AM) Influenza B Ag HSL Neg (10/02/24 11:00 AM) Appearance UR HSL Slightly cloudy (10/01/24 9:30 AM) Reason C Diff Toxin HSL Symptomatic (10/04/24 2:05 PM) Toxogenic C Diff HSL Neg (10/04/24 2:05 PM) 027-NAP1-B1 HSL [Presumptive Neg] Presumptive Neg (10/04/24 2:05 PM) Color UR HSL YELLOW *NA* (10/01/24 9:30 AM) Specific [place] UR HSL [1.005-1.030] <1.005 (10/01/24 9:30 AM) pH UR HSL [5.0-7.5] 7.5 (10/01/24 9:30 AM) Glucose UR HSL [Neg] Neg (10/01/24 9:30 AM) Bilirubin UR HSL Neg (10/01/24 9:30 AM) Ketones UR HSL [Neg] Neg (10/01/24 9:30 AM) Blood UR HSL [Neg] Neg *NA* (10/01/24 9:30 AM) Protein UR HSL [Neg] 10 *ABN* (10/01/24 9:30 AM) Urobilinogen UR HSL [Normal] Normal (10/01/24 9:30 AM) Nitrite UR HSL [Neg] Nitrite Neg *NA* (10/01/24 9:30 AM) Leukocyte Esterase UR HSL [Neg] Neg *NA* (10/01/24 9:30 AM) Squamous Epithelials UR HSL [0-5] 0-5 (10/01/24 9:30 AM) Bacteria UR HSL [None Seen] None Seen (10/01/24 9:30 AM) WBC UR HSL [None Seen /HPF] Rare /HPF (10/01/24 9:30 AM) RBC UR HSL [None Seen] None Seen (10/01/24 9:30 AM) Specimen Source UR HSL Clean Catch (10/01/24 9:30 AM) N/A Male (10/01/24 3:03 PM) Resides in [facility] care setting Unknown (10/01/24 3:03 PM) First test for COVID-19 Unknown (10/01/24 3:03 PM) 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) Hospitalized for COVID-19 Unknown (10/01/24 3:03 PM) Symptomatic as defined by CDC Unknown (10/01/24 3:03 PM) Admitted to ICU for COVID-19 No (10/01/24 3:03 PM) Date of onset/exp 01-OCT-2024 *NA* (10/01/24 3:03 PM) Lot Expiration Date - ENC 12-JUN-2025 *NA* (10/01/24 3:03 PM) Lot Number - [id number] *NA* (10/01/24 3:03 PM) COVID-19 Ag IA BINAX - ENC Negative (10/01/24 3:03 PM) Residence Type Unknown (10/01/24 3:03 PM) DI Number [id number] (10/01/24 3:03 PM) 1Result Comment: Calculated using method: Cockcroft-Gault (default) Calculated using Formula : (140-ageInYears)*IBW/(72*scrInMGperDL) Age: 63 (64346864171.0) Serum Creatinine: 1.20 mg/dL (84229438872.0) Height: 185 cm (68295825098.0) Weight: 83.0 kg (IBW = 79.520 kg) 2Result Comment: Calculated using method: Cockcroft-Gault (default) Calculated using Formula : (140-ageInYears)*IBW/(72*scrInMGperDL) Age: 63 (37952570013.0) Serum Creatinine: 1.20 mg/dL (80168237346.0) Height: 185 cm (72915605584.0) Weight: 83.0 kg (IBW = 79.520 kg) 3Result Comment: Calculated using method: Cockcroft-Gault (default) Calculated using Formula : (140-ageInYears)*weightInKG/(72*scrInMGperDL) Age: 63 (01113944662.0) Serum Creatinine: 1.10 mg/dL (06067861753.0) Height: 185 cm (48311546551.0) Weight: 79.4 kg (Actual Body Weight used) Vital Signs Most recent to oldest [Reference Range]: 1 2 3 Temperature Oral F [96.4-99.1 DegF] 98.5 DegF (10/09/24 6:28 AM) 98.1 DegF (10/07/24 5:00 AM) 98.5 DegF (10/06/24 5:47 AM) Peripheral Pulse Rate [60-100 bpm] 80 bpm (10/09/24:28 AM) 81 bpm (10/07/24 5:27 AM) 90 bpm (10/06/24 5:47 AM) Respiratory Rate [14-20 br/min] 20 br/min (10/09/24 6:28 AM) 18 br/min (10/06/24 5:47 AM) 18 br/min (10/05/24 6:13 AM) Blood Pressure [90-140/60-90 mmHg] 116/69mmHg (10/09/24 6:28 AM) 103/62mmHg (10/06/24 5:47 AM) Systolic Blood Pressure [90-140 mmHg] 144 mmHg *HI* (10/07/24 5:27 AM) Diastolic Blood Pressure [60-90 mmHg] 81 mmHg (10/07/24 5:27 AM) Mean Arterial Pressure, Cuff 84 mmHg (10/09/24 6:28 AM) 102 mmHg (10/07/24 5:27 AM) 76 mmHg (10/06/24 5:47 AM) Temperature Oral 36.9 DegC 1 (10/09/24 6:28 AM) 36.9 DegC 2 (10/06/24 5:47 AM) 36.8 DegC 3 (10/05/24 6:13 AM) 1Result Comment: Charted by SYSTEM secondary to charting of Temperature Oral F on a Vitals Monitor. Rule: VITALSLINK_CALCULATIONS_2 2Result Comment: Charted by SYSTEM secondary to charting of Temperature Oral F on a Vitals Monitor. Rule: VITALSLINK_CALCULATIONS_2 3Result Comment: Charted by SYSTEM secondary to charting of Temperature Oral F on a Vitals Monitor. Rule: VITALSLINK_CALCULATIONS_2 Patient Care team information Personnel Name: Dario Nugent
--- OUTSIDE RECORDS SUMMARY | 2024-10-13 07:30 | XMS_ITS ---
Author Organization [facility] Address [address] [facility] [address] [place] [id number] Care Team Providers Care Portrait Painter Name Role Phone Elif Nugent Primary Care Provider Carlos A Davidson [phone] REASON FOR VISIT [place] E D/C FU Encounters Encounter Location Date Provider Diagnosis [facility] [address] [facility] [address] [place] [phone] 10/13/2024 Carlos A Davidson Plan Of Treatment Next Appt Details Provider Name:Elif Zapata er, 11/13/2024 03:45:00 PM, [address] [facility], [address], [place], [phone], Progress Notes * ROHAN COWARTDOB:1960 (63 yo M)Acc No.[id number]:10/13/2024 Progress Notes Patient: ROHAN PUGH Provider: Uriel Davidson M.D. :1960 A ge:63 Y S ex:Male Date:10/13/2024 Address:[facility] [address] [facility] Pcp:Elif Nugent Subjective: * Chief Complaints: * 1 . [place] E D/C FU. * Medical History: Objective: * Vitals: Assessment: Plan: * Treatment: * Images: Billing Information: * Visit Code: * Procedure Codes: * Electronic signature of Nila Davidson MD on 11/02/2024 at 11:02 AM EDT Sign off status: Pending * Provider: Uriel Davidson M.D. Date: 0 10/13/2024 Generated for Lui palomo/Angelika/Tiburcio on: 0 11/02/2024 11:02 AM EDT
--- OUTSIDE RECORDS SUMMARY | 2024-10-23 10:30 | XMS_ITS ---
Author Organization [facility] Address [address] [place] [phone] Care Team Providers Care Psychological Operations Specialist Name Role Phone Elif Nugent Primary Care Provider [phone] Allergies No Known Allergies Reason For Referral [...] Referral Priority Routine REASON FOR VISIT f/u [place] [facility] d/c following broken leg Medications Medication [...] 10/23/2024 Encounters Encounter Location Date Provider Diagnosis [facility] [facility] [address] [phone] 10/23/2024 Elif Nugent Closed fracture of distal [...] 3 Weeks, Reason: Provider Name:Elif Zapata er, 11/13/2024 03:45:00 PM, [address], [address], [place], [place], [phone], Progress Notes * ROHAN COWARTDOB:1960 (63 yo M)Acc No.[id number]:10/23/2024 Progress Notes Patient: ROHAN PUGH Provider: Elif Nugent M.D. :1960 A ge:63 Y S ex:Male Date:10/23/2024 Address:[place] [address], [place], [id number] Subjective: * Chief Complaints: * 1 . f/u [place] [facility] d/c following broken leg. * HPI: H PI: Patient is here today for a Transition of Care Visit. Discharge from the following Facility: admitted to [facility] on 09/25/2024 for Left distal femur fracture, left DISTAL femur periprosthetic (left knee replacement) fracture, with subsequent admission to [facility] , Discharge date: 09/29/2024 from [place] to [facility]. Discharged from [facility]: M onday 10/16/2024. Pt sts he [...] , left knee replacement surgery, Dr. Diaz, [facility] 09/05/2018, right knee replacement surgery, Dr. Diaz [facility] 12/05/2018, EGD with biopsy 11/2012, Revision of right knee replacement with Explant antibiotic spacer, Dr Stratton 07/16/22, Left periprosthetic femur fracture 09/25/24. * Hospitalization/Major Diagno stic Procedure: b lacked out at home and was taken to [facility] ER and admitted 10/2011, [facility] ER - fall/colitis 06/13/2019, [facility] ER - mikaela 04/2020. * [...] * Images: Billing Information: * Visit Code: 87417 Office Visit, Est Pt., Level 4. * Procedure Codes: 1111F DSCHR MED/CURENT MED MERGE. G2211 Complex e/m visit add on. G8783 BP SCR PRFRM RCMDD DEFIND SCR INTVL. G8752 MOST RECENT SYSTOLIC BP < 140MM HG. G8754 MOST RECENT DIASTOLIC BP < 90MM HG. * Electronic signature of Elif Nugent MD on 11/02/2024 at 11:03 AM EDT Sign off status: Pending * Provider: Elif Nugent M.D. Date: 0 10/23/2024 Generated for Lui palomo/Angelika/Swapnasmitting on: 0 11/02/2024 11:03 AM EDT History and Physical Notes * HPI (History of Present Illness) Category Sub-Category Detail Notes Category Not es HPI Patient is here today for a [facility] sition of Care Visit. Discharge from the following Facility: admitted to [facility] on 09/25/2024 for Left distal femur fracture, left DISTAL femur periprosthetic (left knee replacement) fracture, with subsequent admission to [facility] ,Discharge date: 09/29/2024 from [place] to [facility]. Discharged from [facility]: Wednesday10/16/2024. Pt sts he is still [...]
--- NOTE | 2024-11-02 10:51 | XR_ITS ---
FINAL REPORT CLINICAL HISTORY: Left Femur fx COMPARISON: None FINDINGS: Two views of the left femur show post ORIF changes of the left femur. There is a healing comminuted fracture of the distal femoral shaft with callus formation. Mild medial displacement is noted. The hardware is unremarkable. There are post arthroplasty changes of the left knee. Mild degenerative changes are noted of the left hip. IMPRESSION: Healing femur fracture with intact hardware. Reviewed, Interpreted and Dictated by Jovita Jimenez MD Transcribed by Phyllis Benson Authenticated and [facility]
--- OUTSIDE RECORDS SUMMARY | 2024-11-02 11:03 | XMS_ITS | Clinical Summary ---
Author Organization [employer] [facility] [facility] Address [address] [place] [address] Care Team Providers Care Nondestructive Tester Name Role Phone Dario Nugent MD Primary Care Provider [phone] Allergies Active Allergy Reactions Criticality Noted Date Comments Diphenhydramine Other (See Comments) 07/14/2022 MAKES ME INCOHERENT AND LOOPY Hydrocodone-Acetaminophen Other (See Comments) Low 09/05/2018 It makes me out of my head Tramadol Other (See Comments) Low 09/16/2022 Dizziness Medications cholecalciferol , vitamin D3, 25 mcg (1,000 unit) capsule Take 1 capsule (1,000 Units total) by mouth daily. Active NIFEdipine (PROCARDIA-XL) 30 MG (OSM) 24 hr tablet Take 1 tablet (30 mg total) by mouth daily. 30 tablet 09/29/2024 09/30/19 26 Active gabapentin (NEURONTIN) 300 MG capsule Take 1 capsule (300 mg total) by mouth 3 (three) times daily for 30 days. Max Daily Amount: 900 mg 90 capsule 09/29/2024 10/30/19 25 hydroxychloroqu ine (PLAQUENIL) 200 mg tablet Take 1 tablet (200 mg total) by mouth daily for 30 days. 30 tablet 09/29/2024 10/30/19 25 pantoprazole (PROTONIX) 40 MG tablet Take 1 tablet (40 mg total) by mouth daily for 30 days. 30 tablet 09/29/2024 10/30/19 25 acetaminophen (TYLENOL) 500 MG tablet Take 2 tablets (1,000 mg total) by mouth every 6 (six) hours as needed for up to 10 days. 30 tablet 09/29/2024 10/10/19 25 cyanocobalamin (B-12 DOTS) 500 MCG tablet Take 2 tablets (1,000 mcg total) by mouth daily for 30 days. 60 tablet 09/29/2024 10/30/19 25 enoxaparin (LOVENOX) 40 mg/0.4 mL syrg Inject 0.4 mLs (40 mg total) under the skin daily for 14 days. 5.6 mL 09/29/2024 10/14/19 25 folic acid (FOLVITE) 1 MG tablet Take 1 tablet (1 mg total) by mouth daily for 30 days. 30 tablet 09/29/2024 10/30/19 25 nicotine (NICODERM CQ) 21 mg/[address] 1 patch on the skin daily for 30 days. 28 patch 09/29/2024 10/30/19 25 oxyCODONE (ROXICODONE) 10 MG tablet Take 1 tablet (10 mg total) by mouth every 6 (six) hours as needed for up to 10 days Look-alike /Sound-alike medication . Max Daily Amount: 40 mg 20 tablet 09/29/2024 10/10/19 25 thiamine 100 mg tab tablet Take 1 tablet (100 mg total) by mouth daily for 30 days. 30 tablet 09/29/2024 10/30/19 25 Saccharomyces boulardii (Florastor) 250 mg capsule Take 1 capsule (250 mg total) by mouth 2 (two) times daily for 7 days. 14 capsule 09/29/2024 10/07/19 25 Active Problems Problem Noted Date Diagnosed Date Chronic obstructive pulmonary disease 09/26/2024 Lupus (systemic lupus erythematosus) 09/26/2024 Closed fracture of left distal femur 09/26/2024 Femur fracture, left 09/25/2024 Encounters Date Type Department Care Team Description [facility]29[facility] [address] [place] [address] Dario Nugent MD Hospital Follow Up 09/26/2024 12:00 PM EDT - 09/26/2024 1:37 PM EDT Surgery [facility] Surgery Department [address] [place] [address] Chuy Johnson MD LEFT RETROGRADE NAILING OF KNEE. 09/26/2024 10:50 AM EDT Anesthesia Event [facility] Surgery Department [address] [place] [address] Yusra Fuller CRNA McDonald, Leah B, ROSITA 09/25/2024 10:01 AM EDT - 09/29/2024 5:45 PM EDT Hospital Encounter [facility] Telemetry Unit [address] [place] [address] Moose Granda MD Quisenberry, Thomas, MD Siddiqi, Ismaeel, DO Femur fracture, left (HCC) (Primary Dx) Discharge Disposition: Detention Facility 09/25/2024 Travel from Last 3 Months Social History Tobacco Use Types Packs/Day Years [...] your living situation today? I have a [facility] place to live 09/25/2024 Think about [...] Do you speak a language other than [place] at [facility]? No 09/25/2024 Do you want help with [...] on file Sexual Orientation Not on file Last Filed Vital Signs Vital Sign Reading [...] Mass Index 23.09 09/26/2024 6:00 AM EDT Plan of Treatment Health Maintenance Due Date Last Done Comments CT Colonography 1960 Colonoscopy 1960 Colorectal Cancer Screening 1960 FOBT/FIT 1960 Fit-DNA (Cologuard) 1960 Sigmoidoscopy 1960 Depression Screening (12+) 1970 HIV Screening 1973 Hepatitis C Screening 1976 Lipid Panel 1993 Respiratory Syncytial Virus (RSV) Adult or (1 - Risk 60-74 years 1-dose series) 2018 Pneumococcal 50+ years (2 of 2 - PCV) 04/30/2021, 06/06/2018 Shingles Vaccine (Zoster) (2 of 2) 07/31/20212021 Abdominal Aortic Aneurysm (A AA) Screen 11/26/2023 COVID-19 VACCINE ( season) 2024 03/05/2021, 08/02/2020, 07/04/2020 Falls Risk Screening 05/10/2024 Medicare IPPE (Welcome to [place]) G0402 09/07/2024 Tobacco Cessation Counseling and Screening (12+) 09/29/2025 09/29/2024 DTAP/TDAP/TD VACCINES (2 - T d or Tdap) 06/06/2028 06/06/2018 Influenza Vaccine Completed 02/12/2024, , 04/17/2021 Medical Devices Implanted Type Area Account Services Representative Device Identifier Shelf Expiration Date Model / Serial / Lot Scr Lckng 5.0x60 04.045.060ts - [id number] Implanted:Qty: 1 on 09/26/2024 by Chuy Johnson MD at [facility] IMPLANTS Left: Knee SYNTHES:[employer] [place] 10/07/2028 04.045.060 TS / / [id number] Nail Rfna 31b361an 10 Deg Bend 04.233.041s - [id number] Implanted:Qty: 1 on 09/26/2024 by Chuy Johnson MD at [facility] IMPLANTS Left: Knee SYNTHES:[employer] [place] 06/09/2026 04.233.041 S / / [id number] Scr Lckng 5.0x36 Xl25 Strl 04.045.036ts - [id number] Implanted:Qty: 1 on 09/26/2024 by Chuy Johnson MD at [facility] IMPLANTS Left: Knee SYNTHES:[employer] [place] 02/06/2029 04.045.036 TS / / [id number] End Cap Rfna 0mm Strl 04.233.000s - [id number] Implanted:Qty: 1 on 09/26/2024 by Chuy Johnson MD at [facility] IMPLANTS Left: Knee SYNTHES:[employer] [place] 03/09/2034 04.233.000 S / / [id number] Scr Sg 5.0x66mm 04.045.066ts - [id number] Implanted:Qty: 1 on 09/26/2024 by Chuy Johnson MD at [facility] IMPLANTS Left: Knee SYNTHES:[employer] [place] 04.045.066 TS / / N/A Scr Lckng 5.0x38 Xl25 Strl 04.045.038ts - [id number] Implanted:Qty: 1 on 09/26/2024 by Chuy Johnson MD at [facility] IMPLANTS Left: Knee SYNTHES:[employer] [place] 04.045.038 TS / / N/A Scr Sg For Im Nail 5/88/Xl25 04.045.088s - [id number] Implanted:Qty: 1 on 09/26/2024 by Chuy Johnson MD at [facility] IMPLANTS Left: Knee SYNTHES:[employer] [place] 04.045.088 S / / N/A Procedures Procedure Name Priority Date/Time Associated Diagnosis Comments COMPREHENSIVE METABOLIC PANEL Routine 09/29/2024 4:19 AM EDT CBC W/ AUTO DIFF Routine 09/29/2024 4:19 AM EDT COMPREHENSIVE METABOLIC PANEL Routine 09/28/2024 3:35 AM EDT CBC W/ AUTO DIFF Routine 09/28/2024 3:35 AM EDT AMMONIA Routine 09/27/2024 4:22 AM EDT PT/INR, PTT Routine 09/27/2024 4:22 AM EDT COMPREHENSIVE METABOLIC PANEL Routine 09/27/2024 4:22 AM EDT CBC W/ AUTO DIFF Routine 09/27/2024 4:22 AM EDT US ABDOMEN LIMITED Routine 09/26/2024 4: 30 PM EDT XR FEMUR LEFT STAT 09/26/2024 1:09 PM EDT FL < 1 HOUR Routine 09/26/2024 12:30 PM EDT ANESTHESIA INTUBATION Routine 09/26/2024 10:58 AM EDT MI OPTX FEM SHFT FX W/INSJ IMED IMPLT W/WO SCREW 09/26/2024 10:49 AM EDT Knee injury VITAMIN B12 Routine 09/26/2024 2:42 AM EDT MAGNESIUM Routine 09/26/2024 2:42 AM EDT BASIC METABOLIC PANEL Routine 09/26/2024 2:42 AM EDT CBC W/ AUTO DIFF Routine 09/26/2024 2:42 AM EDT FS_MODEL_IP_ECG 12-LEAD Routine 09/25/2024 3:12 PM EDT XR CHEST AP PORTABLE Routine 09/25/2024 1:48 PM EDT EKG-SCANNED 09/25/2024 from Last 3 Months Results * (ABNORMAL) CBC with automated diff (09/29/2024 4:19 AM EDT) Only the most recent of4 resultswithin the time period is included. WBC 4.3 3.9 - 10.0 K/ L 09/29/2024 4:32 AM EDT [facility] RBC 2.43(L) 4.63 - 6.08 M/ L 09/29/2024 4:32 AM EDT [facility] Hemoglobin 9.5(L) 11.2 - 15.7 GM/DL 09/29/2024 4:32 AM EDT [facility] Hematocrit 28.0(L) 40.1 - 51.0 % 09/29/2024 4:32 AM EDT [facility] MCV 115(H) 79 - 95 fL 09/29/2024 4:32 AM EDT [facility] MCH 39.1(H) 25.6 - 32.2 pg 09/29/2024 4:32 AM EDT [facility] MCHC 33.9 32.3 - 36.5 GM/DL 09/29/2024 4:32 AM EDT [facility] RDW 12.7 11.6 - 14.4 % 09/29/2024 4:32 AM EDT [facility] Platelets 88(L) 163 - 369 K/CU MM 09/29/2024 4:32 AM EDT [facility] MPV 10.8 9.4 - 12.4 fL 09/29/2024 4:32 AM EDT [facility] % Neutros 61 34 - 68 % 09/29/2024 4:32 AM EDT [facility] % Lymphs 25 19 - 53 % 09/29/2024 4:32 AM EDT [facility] % Monos 9 4 - 13 % 09/29/2024 4:32 AM EDT [facility] % Eos 4 1 - 7 % 09/29/2024 4:32 AM EDT [facility] % Baso 1 0 - 1 % 09/29/2024 4:32 AM EDT [facility] # Neutros 2.62 1.56 - 6.13 K/ L 09/29/2024 4:32 AM EDT [facility] # Lymphs 1.08(L) 1.18 - 3.74 K/ L 09/29/2024 4:32 AM EDT [facility] # Monos 0.39 0.24 - 0.82 K/ L 09/29/2024 4:32 AM EDT [facility] # Eos 0.15 0.04 - 0.54 K/ L 09/29/2024 4:32 AM EDT [facility] # Baso 0.02 0.01 - 0.08 K/ L 09/29/2024 4:32 AM EDT [facility] Immature Granulocytes-Re lative 0.20 0.00 - 0.60 % 09/29/2024 4:32 AM EDT [facility] # IG 0.01 0.00 - 0.05 K/uL 09/29/2024 4:32 AM EDT [facility] Blood Venipuncture / Unknown 09/29/2024 4:19 AM EDT 09/29/2024 4:23 AM EDT Narrative [facility] - 09/29/2024 4:32 AM EDT [...] Stacy MD LAB BLOOD ORDERABLES Final Result [facility] [address] [place] [address], [facility] [phone] * (ABNORMAL) Comprehensive metabolic panel (09/29/2024 4:19 AM EDT) Only the most recent of3 resultswithin the time period is included. Sodium 133(L) 136 - 146 meq/L 09/29/2024 5:44 AM EDT [facility] Potassium 3.5 3.5 - 5.1 meq/L 09/29/2024 5:44 AM EDT [facility] Chloride 105 102 - 112 meq/L 09/29/2024 5:44 AM EDT [facility] CO2 22 21 - 32 meq/L 09/29/2024 5:44 AM EDT [facility] Calcium 7.8(L) 8.5 - 10.1 mg/dL 09/29/2024 5:44 AM EDT [facility] Glucose 89 74 - 106 mg/dL 09/29/2024 5:44 AM EDT [facility] BUN 8 7 - 22 mg/dL 09/29/2024 5:44 AM EDT [facility] Creatinine 1.03 0.70 - 1.30 mg/dL 09/29/2024 5:44 AM EDT [facility] BUN/Creatinine 8 8 - 20 09/29/2024 5:44 AM EDT [facility] Albumin 2.1(L) 3.4 - 5.0 g/dL 09/29/2024 5:44 AM EDT [facility] Alkaline Phosphatase 74 27 - 136 U/L 09/29/2024 5:44 AM EDT [facility] ALT 25 12 - 78 U/L 09/29/2024 5:44 AM EDT [facility] AST 29 5 - 37 U/L 09/29/2024 5:44 AM EDT [facility] Total Bilirubin 0.8 0.2 - 1.3 mg/dL 09/29/2024 5:44 AM EDT [facility] Protein, Total 5.9(L) 6.4 - 8.2 gm/dL 09/29/2024 5:44 AM EDT [facility] Anion Gap 10 9 - 20 09/29/2024 5:44 AM EDT [facility] A/G Ratio 0.6(L) 1.1 - 2.5 09/29/2024 5:44 AM EDT [facility] Globulin 3.8 1.5 - 4.5 g/dL 09/29/2024 5:44 AM EDT [facility] Osmolality Calc 264.2 mOsm/kg 5:44 AM EDT [facility] eGFR (mL/min/1.73m2) >60 >=60 mL/min/1.7 3m2 09/29/2024 5:44 AM EDT [facility] Comment:ESTIMATED GFR IS NOT ACCURATE CREATININE CLEARANCE IN PREDICTING GLOMERULAR FILTRATION RATE. ESTIMATED GFR IS NOT APPLICABLE FOR DIALYSIS PATIENTS. Blood Venipuncture / Unknown 09/29/2024 4:19 AM EDT 09/29/2024 4:23 AM EDT us Johnny Stacy MD LAB BLOOD ORDERABLES Final Result [facility] [address] [place] [address], [facility] [phone] * PT/INR, PTT (09/27/2024 4:22 AM EDT) aPTT 28.1 22.0 - 32.0 seconds 09/27/2024 5:38 AM EDT [facility] Protime 10.9 9.0 - 12.0 seconds 09/27/2024 5:38 AM EDT [facility] INR 1.00 0.80 - 1.10 09/27/2024 5:38 AM EDT [facility] Blood Venipuncture / Unknown 09/27/2024 4:22 AM EDT 09/27/2024 5:14 AM EDT us Johnny Stacy MD LAB BLOOD ORDERABLES Final Result Performing Organization Address City/[facility]/ZIP Co de Phone Number [facility] [address] [phone] * Ammonia (09/27/2024 4:22 AM EDT) Ammonia 22 11 - 32 mol/L 09/27/2024 6:00 AM EDT [facility] Blood Venipuncture / Unknown 09/27/2024 4:22 AM EDT 09/27/2024 5:16 AM EDT us Johnny Stacy MD LAB BLOOD ORDERABLES Final Result Performing Organization Address [facility] de Phone Number [facility] [address] [phone] * US abdomen limited (09/26/2024 4:30 PM [...] electronically signed by Favian Terrell MD Voice hotel associate technology ([employer]) is used for the dictation of this note and sound-alike words might be erroneously placed despite reviewing this note for accuracy. Errors in dictation may reflect use of voice recognition software and not all errors in hotel associate may have been detected prior to signing. [...] electronically signed by Favian Terrell MD Voice hotel associate technology ([employer] [facility]) is used for the dictation of this note and sound-alike words might be erroneously placed despite reviewing this note for accuracy. Errors in dictation may reflect use of voice recognition software and not all errors in hotel associate may have been detected prior to signing. Johnny Stacy MD [facility] US ORDERABLES Final Re sult * XR [...] by Jessica Pierre PA-C. Chuy Johnson MD [facility] DIAGNOSTIC IMAGING ORDERABLE S Final Result * [...] by David Ledezma PA-C. Chuy Johnson MD [facility] FLUOROSCOPY ORDERABLES Final Result * AN SINGLE LUMEN INTUBATION (09/26/2024 10:58 [...] June Moser CRNA ANESTHESIA ORDERABLES Final Result * Magnesium (09/26/2024 2:42 AM EDT) Magnesium 1.8 1.5 - 2.4 mg/dL 09/26/2024 3:44 AM EDT [facility] Blood Venipuncture / Unknown 09/26/2024 2:42 AM EDT 09/26/2024 2:45 AM EDT Moose Granda MD LAB BLOOD ORDERABLES Final Resul t Performing Organization Address City/[facility]/ZIP Co de Phone Number [facility] [address] [phone] * Vitamin B12 (09/26/2024 2:42 AM EDT) Vitamin B12 285 193 - 986 pg/mL 09/26/2024 3:44 AM EDT [facility] Blood Venipuncture / Unknown 09/26/2024 2:42 AM EDT 09/26/2024 2:45 AM EDT Moose Granda MD LAB BLOOD ORDERABLES Final Resul t Performing Organization Address City/[facility] Co de Phone Number [facility] [address] [phone] * (ABNORMAL) Basic Metabolic Panel (09/26/2024 2:42 AM EDT) Sodium 133(L) 136 - 146 meq/L 09/26/2024 3:44 AM EDT [facility] Potassium 4.1 3.5 - 5.1 meq/L 09/26/2024 3:44 AM EDT [facility] Chloride 102 102 - 112 meq/L 09/26/2024 3:44 AM EDT [facility] CO2 25 21 - 32 meq/L 09/26/2024 3:44 AM EDT [facility] Anion Gap 10 9 - 20 09/26/2024 3:44 AM EDT [facility] BUN 9 7 - 22 mg/dL 09/26/2024 3:44 AM EDT [facility] Creatinine 1.21 0.70 - 1.30 mg/dL 09/26/2024 3:44 AM EDT [facility] BUN/Creatinine 7(L) 8 - 20 09/26/2024 3:44 AM EDT [facility] Glucose 84 74 - 106 mg/dL 09/26/2024 3:44 AM EDT [facility] Calcium 8.8 8.5 - 10.1 mg/dL 09/26/2024 3:44 AM EDT [facility] Osmolality Calc 264.3 mOsm/kg 3:44 AM EDT [facility] eGFR (mL/min/1.73m2) >60 >=60 mL/min/1.7 3m2 09/26/2024 3:44 AM EDT [facility] Comment:eGFR of <60 suggests chronic kidney disease if found over a 3 month period of time. eGFR <15 indicates renal failure. Blood Venipuncture / Unknown 09/26/2024 2:42 AM EDT 09/26/2024 2:45 AM EDT Moose Granda MD LAB BLOOD ORDERABLES Final Resul t Performing Organization Address City/[facility]/ZIP Co de Phone Number [facility] [address] [phone] * ECG 12 lead (09/25/2024 3:12 PM EDT) VENTRICULAR RATE EKG/MIN 87 BPM GE MUSE ATRIAL RATE (MCT) 87 BPM GE MUSE MI Interval 122 ms GE MUSE QRS-INTERVAL (MSEC) 80 ms GE MUSE QT Interval 364 ms GE MUSE QTC Interval 438 ms GE MUSE P [place] 30 degrees GE MUSE R AXIS (MCT) 44 degrees GE MUSE T Wave [place] 41 degrees GE MUSE [place] Diagnosis Normal sinus rhythm Normal ECG No previous ECGs available Confirmed by Anju DURON SUZANNE ([id number]) on 09/26/2024 10:57:46 AM GE MUSE 09/25/2024 3:12 PM EDT 09/26/2024 10:57 AM EDT Moose Granda MD ECG ORDERABLES Final Result Performing Organization Address City/[facility]/ZIP Co de Phone Number GE MUSE * [...] Default Scanning Provider SCAN ORDERS Final Result from Last [address] [place] [address] [place] [address] MEDICARE PPO Advance Directives For more information, please contact: [phone] * Full Code (Latest Code Status on File) Date Activated Date Inactivated Comments 09/25/2024 10:26 AM 09/29/2024 6:46 PM Healthcare Agents on File Name Relationship Healthcare Agent [facility] Communication Quynh De La Cruz Other Healthcare Decision-Maker Care Teams Nondestructive Tester Relationship Specialty Start Date End Date Dario Nugent MD [address] [place] [address] PCP - General Family Medicine 09/25/24
--- OUTSIDE RECORDS SUMMARY | 2024-11-02 11:03 | XMS_ITS | Referral Summary ---
Author Organization [email or web address] Address [address] [place] [address] Care Team Providers Care Painter Airbrush Name Role Phone Dario Nugent MD Primary Care Provider [phone] Encounters Date Type Department Care Team Description 09/29/2024 Telephone [facility] Telemetry Unit [address] [place] [address] Dario Nugent MD Hospital Follow Up 09/25/2024 10:01 AM EDT - 09/29/2024 5:45 PM EDT Hospital Encounter [facility] Telemetry Unit [address] [place] [address] Moose Granda MD Quisenberry, Thomas, MD Aric, [facility], Femur fracture, left (HCC) (Primary Dx) Discharge Disposition: [facility] Facility 09/26/2024 10:50 AM EDT Anesthesia Event [facility] Surgery Department [address] [place] [address] Yusra Fuller CRNA McDonald, Leah B, OUTSIDE DEALER SALES REPRESENTATIVE 09/26/2024 12:00 PM EDT - 09/26/2024 1:37 PM EDT Surgery [facility] Surgery Department [address] [place] [address] Chuy Johnson MD LEFT RETROGRADE NAILING OF KNEE. 09/25/2024 Travel from Last 3 Months Allergies Active Allergy Reactions Criticality Noted Date [...] distal femur 09/26/2024 Femur fracture, left 09/25/2024 Social History Tobacco Use Types Packs/Day Years [...] your living situation today? I have a [facility] place to live 09/25/2024 Think about [...] Do you speak a language other than Salvadorean at [facility]? No 09/25/2024 Do you want help [...] 09/26/2024 6:00 AM EDT Plan of Treatment Not on file Medical Devices Implanted Type Area Deburring Machine Operator Device Identifier Shelf Expiration Date Model / Serial / Lot Scr Lckng 5.0x60 04.045.060ts - [id number] Implanted:Qty: 1 on 09/26/2024 by Chuy Johnson MD at [facility] IMPLANTS Left: Knee SYNTHES:[employer] [place] 10/07/2028 04.045.060 TS / / [id number] Nail Rfna 48n310ff 10 Deg Bend 04.233.041s - [id number] Implanted:Qty: 1 on 09/26/2024 by Chuy Johnson MD at [facility] IMPLANTS Left: Knee SYNTHES:[employer] [place] 06/09/2026 04.233.041 S / / [id number] Scr Lckng 5.0x36 Xl25 Strl 04.045.036ts - [id number] Implanted:Qty: 1 on 09/26/2024 by Chuy Johnson MD at [facility] IMPLANTS Left: Knee SYNTHES:[employer] [place] 02/06/2029 04.045.036 TS / / [id number] End Cap Rfna 0mm Strl 04.233.000s - [id number] Implanted:Qty: 1 on 09/26/2024 by Chuy Johnson MD at [facility] IMPLANTS Left: Knee SYNTHES:[employer] [place] 03/09/2034 04.233.000 S / / [id number] Scr Sg 5.0x66mm 04.045.066ts - [id number] Implanted:Qty: 1 on 09/26/2024 by Chuy Johnson MD at [facility] IMPLANTS Left: Knee SYNTHES:[employer] [place] 04.045.066 TS / / N/A Scr Lckng 5.0x38 Xl25 Strl 04.045.038ts - [id number] Implanted:Qty: 1 on 09/26/2024 by Chuy Johnson MD at [facility] IMPLANTS Left: Knee SYNTHES:[employer] [place] 04.045.038 TS / / N/A Scr Sg For Im Nail 5/88/Xl25 04.045.088s - [id number] Implanted:Qty: 1 on 09/26/2024 by Chuy Johnson MD at [facility] IMPLANTS Left: Knee SYNTHES:[employer] [place] 04.045.088 [...] ANESTHESIA INTUBATION Routine 09/26/2024 10:58 AM EDT IA OPTX FEM SHFT FX W/INSJ IMED IMPLT [...] [facility] [address] [place] [address], [facility] [phone] * (ABNORMAL) Comprehensive metabolic panel (09/29/2024 4:19 [...] LABORATORY Osmolality Calc 264.2 mOsm/kg 5:44 AM [facility] eGFR (mL/min/1.73m2) >60 >=60 mL/min/1.7 3m2 09/29/2024 5:44 AM [facility] Comment:ESTIMATED GFR IS NOT ACCURATE CREATININE CLEARANCE IN PREDICTING GLOMERULAR FILTRATION RATE. ESTIMATED GFR IS NOT APPLICABLE FOR DIALYSIS PATIENTS. Blood Venipuncture / Unknown 09/29/2024 4:19 AM EDT 09/29/2024 4:23 AM EDT us Johnny Stacy MD LAB BLOOD ORDERABLES Final Result Performing Organization Address [facility]/ZIP Co de Phone Number [facility] [address] [phone] * PT/INR, PTT (09/27/2024 4:22 AM EDT) [...] BLOOD ORDERABLES Final Result Performing Organization Address [facility]/ZIP Co de Phone Number [facility] [address] [phone] * Ammonia (09/27/2024 4:22 AM EDT) Ammonia 22 11 - 32 mol/L 09/27/2024 6:00 AM EDT [facility] Blood Venipuncture / Unknown 09/27/2024 4:22 AM EDT 09/27/2024 5:16 AM EDT us Johnny Stacy MD LAB BLOOD ORDERABLES Final Result Performing Organization Address City/[facility]/ZIP Co de Phone Number [facility] [address] [phone] * US abdomen limited (09/26/2024 4:30 PM [...] electronically signed by Favian Terrell MD Voice bindery helper technology ([employer]) is used for the dictation of this note and sound-alike words might be erroneously placed despite reviewing this note for accuracy. Errors in dictation may reflect use of voice recognition software and not all errors in bindery helper may have been detected prior to signing. [...] electronically signed by Favian Terrell MD Voice bindery helper technology ([employer]) is used for the dictation of this note and sound-alike words might be erroneously placed despite reviewing this note for accuracy. Errors in dictation may reflect use of voice recognition software and not all errors in bindery helper may have been detected prior to signing. us Johnny Stacy MD IMG US ORDERABLES Final Re sult * XR FEMUR LEFT (09/26/2024 1:09 PM EDT) Anatomical Region Laterality Modality Femur X-Ray 09/26/2024 1:54 PM EDT Impressions 09/26/2024 2:16 PM EDT Comminuted distal femoral fracture with intramedullary joe and postoperative changes of total knee arthroplasty. Images reviewed, interpreted, and dictated by Dr. Liesa Garrido. Transcribed by Jessica Pierre PA-C. Narrative [...] MD IMG FLUOROSCOPY ORDERABLES Final Result * AN SINGLE [...] of other approaches attempted: 0 June Moser OUTSIDE DEALER SALES REPRESENTATIVE ANESTHESIA ORDERABLES Final Result * Magnesium (09/26/2024 2:42 AM EDT) [facility] Magnesium 1.8 1.5 - 2.4 mg/dL 09/26/2024 3:44 AM EDT [facility] Blood Venipuncture / Unknown 09/26/2024 2:42 AM EDT 09/26/2024 2:45 AM EDT Moose Granda MD LAB BLOOD ORDERABLES Final Resul t Performing Organization Address [facility] Co de Phone Number [facility] [address] [phone] * Vitamin B12 (09/26/2024 2:42 AM EDT) [facility] Vitamin B12 285 193 - 986 pg/mL 09/26/2024 3:44 AM EDT [facility] Blood Venipuncture / Unknown 09/26/2024 2:42 AM EDT 09/26/2024 2:45 AM EDT Moose Granda MD LAB BLOOD ORDERABLES Final Resul t Performing Organization Address [facility] Co de Phone Number [facility] [address] [phone] * (ABNORMAL) Basic Metabolic Panel (09/26/2024 2:42 AM EDT) [facility] Sodium 133(L) 136 - 146 meq/L 09/26/2024 [...] MD LAB BLOOD ORDERABLES Final Resul t [facility] [address] [facility] [address], [facility] [phone] * ECG 12 lead (09/25/2024 3:12 PM EDT) VENTRICULAR RATE EKG/MIN 87 BPM GE MUSE ATRIAL RATE (MCT) 87 BPM GE MUSE IA Interval 122 ms GE MUSE QRS-INTERVAL (MSEC) 80 ms GE MUSE QT Interval 364 ms GE MUSE QTC Interval 438 ms GE MUSE P [place] 30 degrees GE MUSE R AXIS (MCT) 44 degrees GE MUSE T Wave [place] 41 degrees GE MUSE Dozier Diagnosis Normal sinus rhythm Normal ECG No [...] Rudy Atkins. Transcribed by Berkley Chin PA-C. us Moose Granda MD IMG DIAGNOSTIC IMAGING ORDERABLE S Final Result * EKG-SCANNED (09/25/2024) Narrative 09/25/2024 Ordered by an unspecified provider. us Default Scanning Provider SCAN ORDERS Final Result from Last [address] [facility] MEDICARE PPO Advance Directives For more information, please contact: [phone] * Full Code (Latest Code Status on File) Date Activated Date Inactivated Comments 09/25/2024 10:26 AM 09/29/2024 6:46 PM Healthcare Agents on File Name Relationship Healthcare Agent Relationsia p Communication Quynh De La Cruz Other Healthcare Decision-Maker Care Teams Painter Airbrush Relationship Specialty Start Date End Date Dario Nugent MD [address] [place] [address] PCP - General Family Medicine 09/25/24
--- OUTSIDE RECORDS SUMMARY | 2024-11-02 11:03 | XMS_ITS ---
Author Organization Unknown TREATMENT PLAN [facility] Start Date Provider Encounter for Check-up [phone] [facility]
--- OUTSIDE RECORDS SUMMARY | 2024-11-02 11:03 | XMS_ITS | Encounter Summary ---
Author Organization [employer] Address [address] [place] [address] Care Team Providers Care Information Technology Intern Name Role Phone Dario Nugent MD Primary Care Provider [phone] Reason for Visit * Reason Onset Date Comments Hospital Follow Up 09/29/2024 Encounter Details Date Type Department Care Team (Late st Contact Info) Description 09/29/2024 Telephone [facility] Telemetry Unit [address] [place] [address] Dario Nugent MD [address] [place] [address] Hospital Follow Up Social History Tobacco Use Types Packs/Day Years [...] Do you speak a language other than Burkinan at [facility]? No 09/25/2024 Do you want help [...] on file documented as of this encounter Miscellaneous Notes * Telephone Encounter - Shey Ba - 09/29/2024 11:56 AM EDT Emailed and lvm letting patient know about their pcp hfu 10/13 @ 11:30 am and post op appt 10/11 @ 8:45am. documented in this encounter Plan of Treatment Not on file documented as of this encounter Visit Diagnoses Not on filedocumented in this encounter Care Teams Information Technology Intern Relationship Specialty Start Date End Date Dario Nugent MD [address] [place] [address] PCP - General Family Medicine 09/25/24 documented as of this encounter
--- OUTSIDE RECORDS SUMMARY | 2024-11-02 11:03 | XMS_ITS | Clinical Summary ---
Author Organization [facility] Address [address] [place] [address] Phone Care Team Providers Care Wood Room Hand Name Role Phone Immanuel ROONEY, Florina Garza Unavailable Conditions or Problems Problem Name Problem Code Onset Date Status Entry Date Provider Comment Standard Description Annotate Adverse drug reaction 24423495 (SNOMED CT) 09/29 Active 09/29 Dipesh Walker MD Adverse reaction to drug Eosinophilia , unspecified 182239695 (SNOMED CT) 09/29 Active 09/29 Dipesh Walker MD Eosinophil count above reference range Health advice, education, or counseling 568068759 (SNOMED CT) 08/04 Active 08/04 Ketan Rucker Procedure carried out on subject Thrombocytop enia 828303262 (SNOMED CT) 06/17 Active 06/17 Dipesh Walker MD Thrombocytopeni c disorder Leukopenia 64576071 (SNOMED CT) 06/17 Active 06/17 Dipesh Walker MD Leukopenia Hyperpigment ation of skin 76599797 (SNOMED CT) 06/17 Active 06/17 Dipesh Walker MD Hyperpigmentati on of skin Discoid lupus 255047513 (SNOMED CT) 01/21 Active 01/21 Ketan Rucker Discoid lupus erythematosus Hereditary or idiopathic neuropathy 652244543 (SNOMED CT) 09/18 Active 09/18 Ele Romano Neuropathy COPD 79238150 (SNOMED CT) 09/18 Active 09/18 Ele Romano Chronic obstructive pulmonary disease Smoking cessation counseling 353582559 (SNOMED CT) 05/21 Resolved 05/21 Ele Juan Antonio Procedure carried out on subject Adverse drug reaction 77657609 (SNOMED CT) 08/06 Resolved 08/06 Ele Juan Antonio Adverse reaction to drug Knee, right, subsequent encounter, infection/in flammatory reaction due to internal joint prosthesis T84.53xD (ICD-10-CM ) 05/19 Active 05/19 Ele Juan Antonio Infection and inflammatory reaction due to internal right knee prosthesis, subsequent encounter Myositis 50833104 (SNOMED CT) 08/06 Resolved 08/06 Ele Juan Antonio Myositis Nicotine dependence, cigarettes F17.210 (ICD-10-CM ) 05/21 Active 05/21 Ele Juan Antonio Nicotine dependence, cigarettes, uncomplicated Staphylococc al septic arthritis, right knee (identify type of staph) M00.061 (ICD-10-CM ) 06/25 Active 06/25 Ele Juan Antonio Staphylococcal arthritis, right knee Adverse drug reaction 71289932 (SNOMED CT) 08/06 Removed 08/06 Dipesh Walker MD Adverse reaction to drug Myositis 51587811 (SNOMED CT) 08/06 Removed 08/06 Dipesh Walker MD Myositis Staphylococc al infection 30479504 (SNOMED CT) 06/25 Active 06/25 Dipesh Walker MD Staphylococcal infectious disease Septic arthritis, right knee 36993361 (SNOMED CT) 06/25 Inactive 06/25 Dipesh Walker MD Bacterial arthritis Tobacco abuse 77674562 (SNOMED CT) 05/21 Inactive 05/21 Dipesh Walker MD Tobacco dependence syndrome Smoking cessation counseling 882512992 (SNOMED CT) 05/21 Removed 05/21 Dipesh Walker MD Procedure carried out on subject Effusion, right knee M25.461 (ICD-10-CM ) 05/19 Active 05/19 Ele Juan Antonio Effusion, right knee Benign Essential Hypertension 21235422 (SNOMED CT) 05/19 Active 05/19 Ele Romano Benign hypertension Knee, right, initial encounter(s) , infection/in flammatory reaction due to internal joint prosthesis T84.53xA (ICD-10-CM ) 05/19 Inactive 05/19 Ele Romano Infection and inflammatory reaction due to internal right knee prosthesis, initial encounter Cellulitis of RLE 824183204 (SNOMED CT) 05/19 Active 05/19 Ele Romano Cellulitis of lower limb Medications Medication Instructions Start Date Stop Date Generic Name NDC Provider HYDROXYCHLOROQUINE SULFATE 200 MG TABS 1 tab oral twice daily 06/17 hydroxychloroquine 45916717671 Ketan Rucker MINOCYCLINE HCL 100 MG CAPS Take 1 capsule by mouth twice a day 01/21 minocycline 11977870858 Dipesh Walker MD DOXYCYCLINE HYCLATE 100 MG CAPS Take 1 capsule by mouth twice a day 09/24 doxycycline hyclate 49772482656 Dpiesh Walker MD ASPIRIN EC 81 MG TBEC 1q12h aspirin 72058788770 [facility] DOXYCYCLINE MONOHYDRATE 100 MG CAPS 1bid doxycycline monohydrate 63453545519 Braden Bennett FOLIC ACID 1 MG TABS 1qd folic acid 64251887633 [facility] MELOXICAM 15 MG TABS 1qd,wm meloxicam 55329054175 [facility] ONDANSETRON HCL 4 MG TABS 1q6h,prn ondansetron hcl 82524077196 [facility] OXYCODONE HCL 5 MG TABS 1q4h,prn oxycodone 51489837339 [facility] PANTOPRAZOLE SODIUM 40 MG TBEC 1am pantoprazole 71482068275 [facility] TAMSULOSIN HCL 0.4 MG CAPS 1hs tamsulosin 46555235882 Braden Bennett TRAMADOL HCL 50 MG TABS 1q8h,prn tramadol 33896512807 Braden Linkenship VANCOMYCIN HCL IN NACL 1-0.9 GM/250ML-% SOLN Vancomycin 1.5GM IV Q24hrs at 9amStat labs prior to appt (ensure his appt and timing of dos coincide) 08/27 vancomycin in 0.9 % sodium chl 22423390370 Jennyfer Beasley VANCOMYCIN HCL IN NACL 1-0.9 GM/250ML-% SOLN Vancomycin 1.5GM IV Q24hrs at 9amStat labs prior to appt (ensure his appt and timing of dos coincide) 08/27 vancomycin in 0.9 % sodium chl 79672430180 Ileana Moon VANCOMYCIN HCL IN NACL 1-0.9 GM/250ML-% SOLN Vancomycin 1GM IV [id number] labs prior to appt (ensure his appt and timing of dos coincide) 08/11 vancomycin in 0.9 % sodium chl 63959382041 Elizabeth Romero RN LEVOFLOXACIN 500 MG TABS once a day levofloxacin 15914504478 Ileana Vasquezo r Tylenol unspecified unspecified 500 mg PRN acetaminophen 94156720163 Ileana Mi nor FOLIC ACID 0.8 MG CAPS once a day 1 mg folic acid 43487834555 Ileana Minor THIAMINE HCL 100 MG TABS 1 tab oral daily thiamine hcl (vitamin b1) 19679378102 Ketan Rucker FUROSEMIDE 40 MG TABS 1 tab oral daily furosemide 65302926420 Ketan Rucker ALBUTEROL SULFATE HFA 108 (90 Base) MCG/ACT AERS 2 puff inhale qid prn albuterol sulfate 40796171876 Ketan Rucker IBUPROFEN 800 MG TABS 1 tab oral 3 times daily ibuprofen 37395742569 Ketan Rucker PERIDEX 0.12 % SOLN 10ml oral 2 times a day chlorhexidine gluconate 45960258475 Ketan Rucker NIFEDIPINE ER 30 MG [id number] 1 tab oral daily nifedipine 72862331317 Ketan Rucker gabapentin 600 mg tablet extended release 24 hr 1 tab oral 3 times daily gabapentin Ketan Rucker HYDROXYCHLOROQUINE SULFATE 200 MG TABS 1 tab oral twice daily 10/20 hydroxychloroquine 23005820610 Ketan Ruckre LORAZEPAM 0.5 MG TABS 1 tab oral 3 times daily lorazepam 05887567680 Ketan Rucker OMEPRAZOLE 20 MG CPDR 1 cap orally once daily omeprazole 07674048479 Ketan Rucker Medications Administered No information available. Allergies, Adverse Reactions, Alerts Allergy Name Reaction Description Start Date Severity Status Provider TRAMADOL HCL dizziness Moderate Active Josué becker Bennett HYDROCODONE-ACETAMIN OPHEN Loopy Severe Active Braden George ship BENADRYL ALLERGY makes him incoherent and loopy Severe Active Braden Quintero hip DAPTOMYCIN Myositis Moderate Active Dipesh cole MD DOXYCYCLINE HYCLATE Moderate Active Dipesh Walker MD BACTRIM Moderate Active Dipesh Villavicencio MD Results Date Name Value Unit Range Flag Description Office Visit: rm 1 VAPE_USE Current Tobacco smok ing status Lab Report: CK CPK 23 U/L 20-200 Creatine rodo se [Enzymatic activity/volume] in Serum or Plasma Lab Report: VANCOMYCIN, TROU GH VANCOMY CHAL 16.80 ug/mL 5.00-20.0 0 vancomycin level, serum, trough Lab Report: MANUAL DIFFERENT IAL BASOABSOLMAN 0.05 10*3/MM3 {Cells}/ uL 0.00-0.20 basophils, absolute, manual EOSINPABSMAN 0.15 10*3/MM3 {Cells}/ uL 0.00-0.40 eosinophils, absolute, manual MONOCYTABMAN 0.59 10*3/MM3 {Cells}/ uL 0.10-0.90 monocytes, absolute, manual LYMPHSABSMAN 1.88 10*3/MM3 {Cells}/ uL 0.70-3.10 lymphocytes, absolute, manual NEUT CT MANU 2.27 10*3/mm3 1.70-7.00 neutr ophil count, blood, manual BASO % MANU 1.0 % 0.0-1.5 basophils as percent of blood leukocytes, manual count EOS % MANU 3.0 % 0.3-6.2 eosinophil s as percent of blood leukocytes, manual count MONOS % MANU 12.0 % 5.0-12.0 monocyt es as percent of blood leukocytes, manual count LYMPH % MANU 30.0 % 19.6-45.3 lympho cytes as percent of blood leukocytes, manual count PMN%(MANUAL) 46.0 42.7-76.0 neutro phils, polymorphonuclear as percent of blood leukocytes, manual count Lab Report: CBC With Differe ntial/Platelet, Comp. Metabolic Panel (14), ... A/G RATIO 0.9 g/dL Albumin/Kimber bulin [Mass Ratio] in Serum or Plasma GLOBULIN 3.9 Globulin [Mass/volume] in Serum CBC COMMENTS NOTE complete blood count (CBC), comments BASOPHIL % 0.8 % 0.0-1.5 Basophils/ 100 leukocytes in Blood by Manual count LYMPHS % 39.7 % 19.6-45.3 Lymphocyte s/100 leukocytes in Blood by Automated count PMN % 42.0 % 42.7-76.0 L Neutrophils /100 leukocytes in Blood by Automated count RDW 12.9 % 12.3-15.4 Erythrocyte distribution width [Ratio] by Automated count Office Visit: Office Visit: 4 MEDS REVIEW Done Documenta tion of current medications (procedure) ORALTOBACUSE Never Tobacco smoking status SMOK ADVICE yes Smoking c essation education (procedure) SMOK STATUS Current every day smoker Tobacco smoking status Lab Report: CBC WITH AUTO DI FFERENTIAL [id number]-GE-[id number] 0.0 /100 WBC 0.0-0.2 GE use only - fo r [employer] import when terms are not otherwise specified IMMATUREGRAN 0.01 10*3/MM3 0.00-0.05 Immature granulo cytes [#/volume] in Blood BASO# 0.04 10*3/mm3 0.00-0.20 Basophils [#/vol ume] in Blood EOS ABSLT 0.22 10*3/uL 0.00-0.40 Eosinophi ls [#/volume] in Blood MONOSCT AUTO 0.35 10*3/uL 0.10-0.90 Monocy craig [#/volume] in Blood by Automated count LYMPHCT AUTO 1.05 10*3/mm3 0.70-3.10 Lymph ocytes [#/volume] in Blood by Automated count ABS NEUTROPH 1.10 10*3/uL 1.70-7.00 L Neutro phils [#/volume] in Blood IMM GRANU % 0.4 % 0.0-0.5 Immature granulocytes/100 leukocytes in Blood % EOS AUTO 7.9 % 0.3-6.2 H Eosinophil s/100 leukocytes in Blood by Automated count MONOCYTE % 12.6 % 5.0-12.0 H Monocytes /100 leukocytes in Blood by Automated count LYMPHOCY BF 37.9 % 19.6-45.3 lymphoc ytes as percent of body fluid leukocytes NEUTROP BF 39.8 % 42.7-76.0 L Neutroph ils/100 leukocytes in Body fluid PLATELETS 77 10*3/mm3 140-450 L Platelets [#/volume] in Blood by Automated count RDW_ 11.6 12.3-15.4 L RDW, no uni ts MCHC 35.2 G/DL 31.5-35.7 MCHC [Mass/ volume] by Automated count MCH 37.5 pg 26.6-33.0 H MCH [Entiti c mass] by Automated count MCV 106.3 fL 79.0-97.0 H MCV [Entiti c volume] by Automated count HCT 40.3 % 37.5-51.0 Hematocrit [Volume Fraction] of Blood by Automated count HGB 14.2 g/dL 13.0-17.7 Hemoglobin [Mass/volume] in Blood RBC 3.79 10*6/mm3 4.14-5.80 L Erythrocyt es [#/volume] in Blood by Automated count WBC 2.77 10*3/mm3 3.40-10.8 0 L Leukocytes [#/volume] in Blood by Automated count Lab Report: SEDIMENTATION RA TE ESR 32 mm/h 0-20 H Erythrocyte sedimentation rate by Westergren method Lab Report: C-REACTIVE PROTE IN CRP <0.30 mg/dL 0.00-0.50 C reactive protein [Mass/volume] in Serum or Plasma Lab Report: COMPREHENSIVE ME TABOLIC PANEL ANIONGAP 12.0 mmol/L 5.0-15.0 anion gap, serum BUN/CREAT 11.8 7.0-25.0 Urea nitrogen/Creatinine [Mass Ratio] in Serum or Plasma BILI TOTAL 0.8 mg/dL 0.0-1.2 Bilirubin. total [Mass/volume] in Serum or Plasma ALK PHOS 115 U/L 39-117 Alkaline fly sphatase [Enzymatic activity/volume] in Blood SGOT (AST) 56 U/L 1-40 H Aspartate aminotransferase [Enzymatic activity/volume] in Serum or Plasma SGPT (ALT) 38 U/L 1-41 Alanine aminotransferase [Enzymatic activity/volume] in Serum or Plasma ALBUMIN 3.6 g/dL 3.5-5.2 Albumin [Mass /volume] in Serum or Plasma PROTEIN, TOT 7.3 g/dL 6.0-8.5 Protein [Mass/volume] in Serum or Plasma CALCIUM 9.1 mg/dL 8.6-10.5 Calcium [Moles/volume] in Serum or Plasma CO2 24.0 mmol/L 22.0-29.0 Carbon diox marilyn, total [Moles/volume] in Venous blood CHLORIDE 94 mmol/L 98-107 L Chloride [Moles/volume] in Serum or Plasma POTASSIUM 3.4 mmol/L 3.5-5.2 L Potassium [Moles/volume] in Serum or Plasma SODIUM 130 mmol/L 136-145 L Sodium [Moles /volume] in Serum or Plasma CREATININE 1.36 mg/dL 0.76-1.27 H Creatini ne [Mass/volume] in Serum or Plasma BUN 16 mg/dL 8-23 Urea nitrogen [Mass/volume] in Serum or Plasma GLUCOSE SER 86 mg/dL 65-99 Glucose [ Mass/volume] in Serum or Plasma Plan of Care Type Date Detail Pending order STAT Labs Pending order CBC with Differe ntial Pending order CMP Pending order C- reactive prot ein Pending order Sedimentation Ra te (ESR) Pending order STAT Labs Pending order STAT Labs Pending order STAT Labs Pending order STAT Labs Pending order STAT Labs Pending order STAT Labs Pending order STAT Labs Pending order STAT Labs Pending order CMP Pending order CBC with Differe ntial Pending order C- reactive prot ein Pending order Sedimentation Ra te (ESR) Pending order STAT Labs Pending order STAT Labs Pending order CMP Pending order CBC with Differe ntial Pending order C- reactive prot ein Pending order Vancomycin Troug h Pending order STAT Labs Pending order STAT Labs Pending order STAT Labs Pending order STAT Labs Pending order STAT Labs Pending order CMP Pending order CBC with Differe ntial Pending order C- reactive prot ein Pending order CPK Pending order Sedimentation Ra te (ESR) Pending order Vancomycin Troug h Pending order STAT Labs Pending order STAT Labs Pending order CMP Pending order Sedimentation Ra te (ESR) Pending order C- reactive prot ein Pending order CBC with Differe ntial Pending order STAT Labs Procedures Code Procedure Name Date Entry Date CPT-sl STAT Labs [id number] CBC with Differential 2023 CPT-82841 CMP CPT-99122 C- reactive protein CPT-74114 Sedimentation Rate (ESR) 08/11/27 CPT-sl STAT Labs CPT-sl STAT Labs CPT-sl STAT Labs CPT-sl STAT Labs CPT-73163 CMP [id number] CBC with Differential 2022 CPT-48856 C- reactive protein CPT-28918 Sedimentation Rate (ESR) 07/14/05 CPT-sl STAT Labs CPT-sl STAT Labs CPT-90272 CMP [id number] CBC with Differential 2022 CPT-71277 C- reactive protein CPT-20707 Vancomycin Trough CPT-sl STAT Labs CPT-sl STAT Labs CPT-51040 CMP [id number] CBC with Differential 2022 CPT-33761 C- reactive protein [id number], [id number] CPK CPT-38506 Sedimentation Rate (ESR) 202 07/12/03 CPT-86433 Vancomycin Trough CPT-sl STAT Labs CPT-sl STAT Labs CPT-19425 CMP CPT-02787 Sedimentation Rate (ESR) 202 07/09/11 CPT-98578 C- reactive protein [id number] CBC with Differential 2022 CPT-sl STAT Labs Vital Signs Date Name Value Unit Description BMI (Body Mass Index) 24.01 kg/m2 Bod y Mass Index (Ratio) Body Temperature 97.3 [degF] temperat ure E&M BP Diastolic 68 mm[Hg] blood pressu re, diastolic BP Systolic 118 mm[Hg] blood pressur e, systolic Heart Rate 78 /min pulse rate Height 73 [in_us] height E&M Respiratory Rate 16 /min respirat ory rate E&M Weight Measured 182 [lb_av] weight E& M Weight Measured 182 [lb_av] weight E& M Immunizations No information available. Advance Directives Directive Description Start Date NO ADVANCED DIRECTIVES
--- OUTSIDE RECORDS SUMMARY | 2024-11-02 11:04 | XMS_ITS | Encounter Summary ---
Author Organization Healthcare Address [address] [place] [address] Care Team Providers Care Wait Staff Name Role Phone Dario Nugent MD Primary Care Provider [phone] Encounter Details Date Type Department Care Team (Late st Contact Info) Description 09/25/2024 Orders Only External Location [address] [place] [address] Provider, External Social History Tobacco Use Types Packs/Day Years Used Date Smoking Tobacco: Every Day Smokeless Tobacco: Never Alcohol Use Standard Drinks/Week Comments Yes 0 (1 standard drink = 0.6 oz pure alcohol) Alcoholic Drinks/day: Social alcohol use Sex and Gender Information Value Date Recorded Sex Assigned at Not on file Legal Sex Male 8:51 PM EDT Gender Identity Not on file Sexual Orientation Not on file documented as of this encounter Plan of Treatment Not on file documented as of this encounter Procedures Procedure Name Priority Date/Time Associated Diagnosis Comments XR MSK OUTSIDE IMAGES 09/25/2024 4:24 AM EDT documented in this encounter Results * XR MSK OUTSIDE IMAGES (09/25/2024 4:24 AM EDT) Anatomical Region Laterality Modality Radiographic Karol ging 09/25/2024 4:24 AM EDT us External Provider IMG XR PROCEDURES Final Result documented in this encounter Visit Diagnoses Not on filedocumented in this encounter Additional Health Concerns Assessment Noted Time A fall risk assessment has been complete d for the patient 03/03/2022 12:47 PM EDT documented as of this encounter Care Teams Wait Staff Relationship Specialty Start Date End Date Dario Nugent MD [address] [place] [address] PCP - General 09/20/20 documented as of this encounter
--- OUTSIDE RECORDS SUMMARY | 2024-11-02 11:04 | XMS_ITS | Clinical Summary ---
Author Organization Healthcare Address [address] [place] [address] Care Team Providers Care Sock Examiner Name Role Phone Dario Nugent MD Primary Care Provider [phone] Allergies Active Allergy Reactions Criticality Noted Date Comments Hydrocodone-Acetamin ophen Other - please document in the comment field Low 09/05/2018 It makes me out of my head Medications gabapentin (Neurontin) 600 MG tablet 1 Active LORazepam (Ativan) 0.5 MG tablet 1 Active ibuprofen 800 MG tablet 1 Active hydroxychloroqu ine (Plaquenil) 200 MG tablet 1 Active furosemide (Lasix) 40 MG tablet 1 Active NIFEdipine XL (Procardia XL) 30 MG 24 hr tablet Take 30 mg by mouth 1 (one) time each day. 2 Active omeprazole (PriLOSEC) [address] capsule Take 20 mg by mouth 1 (one) time each day. 2 Active triamcinolone (Kenalog) 0.1 % cream APPLY CREAM EXTERNALLY TWICE DAILY 2 Active Active Problems No known active problems Encounters Date Type Department Care Team Description 09/25/2024 - 09/25/2024 6:50 PM EDT Emergency [facility] [address] [place] [address] Discharge Disposition: ED Dismiss - Never Arrived 09/25/2024 Orders Only External Location [address] [place] [address] Bonnie Mello MD 09/25/2024 Orders Only External Location [address] [place] [address] Provider, External from Last 3 Months Family History Medical History Relation Name Comments COPD Other 1 Other cancer Other 2 Relation Name Status Comments Other 1 Other 2 Social History Tobacco Use Types Packs/Day Years Used Date Smoking Tobacco: Every Day Smokeless Tobacco: Never Tobacco Cessation:Ready to Q uit: Not Asked; Counseling Given: Not Answered Alcohol Use Standard Drinks/Week Comments Yes 0 (1 standard drink = 0.6 oz pure alcohol) Alcoholic Drinks/day: Social alcohol use Sex and Gender Information Value Date Recorded Sex Assigned at Not on file Legal Sex Male 8:51 PM EDT Gender Identity Not on file Sexual Orientation Not on file Last Filed Vital Signs Vital Sign [place] Time Taken Comments Blood Pressure 139/87 09/25/2024 6:04 AM EDT Pulse 93 09/25/2024 6:04 AM EDT Temperature 37.1 C (98.7 F) 09/25/2024 6:04 AM EDT Respiratory Rate 18 09/25/2024 6:04 AM EDT Oxygen Saturation 97% 09/25/2024 6:04 AM EDT ra Inhaled Oxygen Concentration - - Weight 81.3 kg (179 lb 3.7 oz) 03/03/2022 12:46 PM EDT Height 185.4 cm (6' 1 ) 03/03/2022 12:46 PM EDT Body Mass Index 23.65 03/03/2022 12:46 PM EDT Plan of Treatment Health Maintenance Due Date Last Done Comments [facility]-Depression Screening 1960 [facility]-Hepatitis C Screening 1960 [facility]Medicare Annual Wellness (AWV) 1960 [facility]-/Child/Adol SDOH Screenings 1960 [facility]- SDOH Screenings 1976 [facility]-Adult SDOH Screenings 1976 CT Colonography 11/26/2003 Colonoscopy 11/26/2003 FIT-DNA 11/26/2003 FIT 11/26/2003 FOBT 11/26/2003 Sigmoidoscopy 11/26/2003 [facility]-Colorectal Cancer Screening 11/26/2003 [facility]-Pneumococcal Vaccine: 50 + Years (2 of 2 - PCV) 04/30/2021 04/30/2020, 06/06/2018 [facility]-Zoster Vaccines (2 of 2) 07/31/2021 06/05/2021 [id number] Vaccine (2023- season) 2024 03/05/2021, 08/02/2020, 07/04/2020 [facility]-Influenza Vaccine (Seaso n Ended) 2025 02/17/2022, 04/17/2021, 03/15/2020 [facility]-DTaP,Tdap,and Td Vaccine s (2 - Td or Tdap) 06/06/2028 06/06/2018 [facility]-RSV Vaccine: 60+ Years o r (1 - 1-dose 75+ series) 2033 HPV Vaccines Aged Out No longer eligi ble based on patient's age to complete this topic [facility]-HIB Vaccines Aged Out No longer e ligible based on patient's age to complete this topic [facility]-Hepatitis A Vaccines Aged Out No longer eligible based on patient's age to complete this topic [facility]-IPV Vaccines Aged Out No longer e ligible based on patient's age to complete this topic [facility]-Rotavirus Vaccines Aged Out No lo nger eligible based on patient's age to complete this topic Procedures Procedure Name Priority Date/Time Associated Diagnosis Comments XR MSK OUTSIDE IMAGES 09/25/2024 4:27 AM EDT XR MSK OUTSIDE IMAGES 09/25/2024 4:24 AM EDT from Last 3 Months Results * XR MSK OUTSIDE IMAGES (09/25/2024 4:27 AM EDT) Only the most recent of2 resultswithin the time period is included. Anatomical Region Laterality Modality Radiographic Karol ging 09/25/2024 4:27 AM EDT Bonnie Mello MD IMG XR PROCEDURES Final Res ult from Last 3 Months [place] [address] Care Teams Sock Examiner Relationship Specialty Start Date End Date Dario Nugent MD [address] [place] [id number] PCP - General 09/20/20
--- OUTSIDE RECORDS SUMMARY | 2024-11-02 11:04 | XMS_ITS | Encounter Summary ---
Author Organization Healthcare Address [address] [place] [address] Care Team Providers Care Printing And Stamping Supervisor Name Role Phone Dario Nugent MD Primary Care Provider [phone] Encounter Details Date Type Department Care Team (Late st Contact Info) Description 09/25/2024 - 09/25/2024 6:50 PM EDT Emergency [facility] Department [address] [place] [address] Discharge Disposition: ED Dismiss - Never Arrived Social History Tobacco Use Types Packs/Day Years [...] on file documented as of this encounter Medications at Time of Discharge furosemide (Lasix) 40 MG tablet 11/26/2020 gabapentin (Neurontin) 600 MG tablet 02/23/2021 hydroxychloroqui ne (Plaquenil) 200 MG tablet 02/09/2021 ibuprofen 800 MG tablet 01/12/2021 LORazepam (Ativan) 0.5 MG tablet 02/27/2021 NIFEdipine XL (Procardia XL) 30 MG 24 hr tablet Take 30 mg by mouth 1 (one) time each day. 01/31/2022 omeprazole (PriLOSEC) [address] capsule Take 20 mg by mouth 1 (one) time each day. 01/31/2022 triamcinolone (Kenalog) 0.1 % cream APPLY CREAM EXTERNALLY TWICE DAILY 10/30/2021 documented as of this encounter Plan of Treatment Not on file documented as of this encounter Visit Diagnoses Not on filedocumented in this encounter Additional Health Concerns Assessment Noted Time A fall risk assessment has been complete d for the patient 03/03/2022 12:47 PM EDT documented as of this encounter Care Teams Printing And Stamping Supervisor Relationship Specialty Start Date End Date Dario Nugent MD [address] [place] [address] PCP - General 09/20/20 documented as of this encounter
--- OUTSIDE RECORDS SUMMARY | 2024-11-02 11:04 | XMS_ITS | Data Portability ---
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 Plan of Treatment Reminders Order Date Submit Date Provider Last Modified By Organization Details Last Modified Time Details Appointments None recorded. Lab None recorded. Referral None recorded. Procedures None recorded. Surgeries None recorded. Imaging None recorded. Medication Orders triamcinolo ne acetonide 0.1 % topical cream [address] [facility], [address] [place], [address], 4 10:49:25 Patient TargetsNo targets recorded. Patient InstructionsNo instructions recorded. Reason for Referral None Reported. Medical Equipment None Reported. Allergies No known drug allergies Medications Name Sig Start Date Stop Date Status Note LastModified by Organization Details LastModified Time Plaquenil 200 mg tablet Two times a day active Frequency : bid;Medic ation Descripti on: hydroxych loroquine ; Dosage:1; Route:ora l; refills:0 pt discontin ued Not Available Not Available Not Available Neurontin 300 mg capsule Three times a day active Frequency : tid;Medic ation Descripti on: gabapenti n; Dosage:1; Route:ora l; refills:0 Not Available Not Available Not Available sertraline 100 mg tablet Daily active Frequency : daily;Med ication Descripti on: sertralin e; Dosage:1; Route:ora l; refills:0 Not Available Not Available Not Available triamcinol one acetonide 0.1 % topical cream APPLY A THIN LAYER TO THE AFFECTED AREA(S) BY TOPICAL ROUTE 2 TIMES PER DAY FOR NO MORE THAN 2 WEEKS AT A TIME 2023 active Not Available Not Available Not Avai lable oxazepam 15 mg capsule Three times a day active Frequency : tid;Medic ation Descripti on: oxazepam; Dosage:1; Route:ora l; refills:0 Not Available Not Available Not Available folic acid 1 mg tablet Daily active Duration: 30 days;Freq uency: daily;Med ication Descripti on: folic acid; Dosage:1; Route:ora l; refills:0 ; Quantity: 30 tablet Not Available Not Available Not Available Vitamin B-12 active Medicatio n Descripti on: cyanocoba alecia; Route:ora l; refills:0 ; Quantity: 30 tablet Not Available Not Available Not Available Procardia active Medicatio n Descripti on: nifedipin e; Route:ora l; refills:0 Not Available Not Available Not Available Vitamin B1 active Medicatio n Descripti on: thiamine; refills:0 Not Available Not Available Not Available Vitals None Recorded Social History None recorded. Functional Status None recorded. Mental Status None recorded. Family History Nothing Reported. Medical History No medical history recorded. Past Encounters Encounter ID Performer Location Encounter Start Date Encounter Closed Date Diagnosis/Indication Diagnosis SNOMED-CT Code Diagnosis ICD10 Code Diagnosis Note [id number] BEVERLY ALAN MD [address] [address] 08/24/2023 09:23:52 08/24/2023 11:52:49 Multiple benign melanocytic nevi [id number] D22.5 - Benign lesions seen on exam today- SPF 30 or higher broad-spec trum sunscreen recommende d with re-applica tion every 2 hours- Discussed sun protection measures, including wide-brimm ed hat, sun-protec tive clothing, and avoidance of sun during peak hours of 10am-4pm- Avoid tanning beds as these can increase the chances of all 3 types of skin cancer- Instructed to monitor for changes and to call us for appointmen t with any changing or worrisome lesions Seborrheic keratosis [id number] L82.1 - Benign overgrowth s of skin - Hereditary Senile angioma 1853206 I 78.1 - Benign blood vessel growths - Hereditary Solar lentigo [id number] L 81.4 - Benign brown spots - Sun-induce d Systemic l upus erythematosus 21459820 M32.8 L27.0 Nature of diagnosis discussed further.Re commend regular eye exams, blood work, and PCP/Rheuma tology appointmen tsRecommen d rx TAC 0.1% topical cream to use BID on the body for no more than 2 weeks at a time. SE reviewed. detention use discussed. Do not use on face or skin folds.Hunter mmend discussing restarting the Plaquenil with Dr. [place] with change or concern Cyst of skin [id number] L 72.9 Benign nature of diagnosis discussed. Discussed excision as possible treatmentF up with change or concern Vitiligo 13031277 L80 Nature of diagnosis discussedF up with change or concern Health Concerns Section Related Observation LastModified by Organization Detai ls LastModified Time None Recorded Concern Status LastModified by Organization Details LastModified Time None Recorded Advance Directives Directive None Recorded Payers Insurance Date Sequence Insurance Name Policy Number Policy Wright Covered Member ID Wright Member ID Guarantor Name 08/20/2024 1 [employer] (MEDICARE REPLACEMENT/A DVANTAGE - PPO) Christian Castorena [id number] Christian Castorena Notes Date Note Type Note Provider Name and Address Organization Details Recorded Time 08/24/2023 text/html My back has been itching for two years. The lady I last saw gave me medicine to put on it. I would like for her to look behind my R ear and also at my hands.Pt requests waist up skin exam, last seen by CP 01/2022Hx of knee arthroplasty infection-previously on doxycycline and minocycline, turned my skin black Hx lupus-bilateral hands and arms, back. Tx: outside rx Plaquenil, halobetasol, and hydrocortisone BEVERLY ALAN MD [address], [place], [address], [facility] - [facility] 08/24/2023 11:37:21
--- OUTSIDE RECORDS SUMMARY | 2024-11-02 11:04 | XMS_ITS | Patient Health Record ---
Author Organization [facility] Address [address] [place] [id number] Care Team Providers Care Vice President Residential Solar [employer] Name Role Phone Elif Nugent Primary Care Provider Carlos A Davidson Unavailable [phone] Allergies No Known Allergies Results Component Value Reference Range Notes P-Basic Metabolic Panel (BMP ) Reviewed date:03/07/2024 05:05:46 PM Interpretation:co2- 19 Performing Lab: Notes/Report: Test performed by [facility] [address] [place] [address] , [address], [place] [address] Jordan Trammell MD, Custom Framing Specialist CLIA: [id number] Sodium 135 135-145 mmol/L Potassium 4.4 3.5-5.3 mmol/L Chloride 104 97-108 mmol/L CO2 19 22-32 mmol/L Glucose 83 65-99 mg/dL BUN 12 8-23 mg/dL Creatinine 1.17 0.70-1.30 mg/dL Calcium 9.0 8.6-10.4 mg/dL eGFR by Creatinine 69 >59 mL/min/1.73m2 P-CBC with Diff plus Absolut e Counts Reviewed date:03/07/2024 05:05:47 PM Interpretation:wbc 2.3, rbc 3.49, hgb 12.8, hct 37.4, plat 74 Performing Lab: Notes/Report: Test performed by [facility] [address] [place] [address] , [address], [place] [address] Jordan Trammell MD, Custom Framing Specialist CLIA: [id number] WBC 2.3 3.8-11.5 K/uL Red Blood Cell Count (RBC) 3.49 4.20-5.70 M/mm 3 Hemoglobin (Hgb) 12.8 13.1-17.5 gm/dL Hematocrit (HCT) 37.4 39.0-51.0 % MCV 107.2 79.0-99.0 fL MCH 36.7 26.9-35.0 pg MCHC 34.2 30.4-34.8 g/dL RDW 43.7 38.2-53.0 fL Platelet Count 74 137-397 K/cumm Neutrophils Automated 27.6 41.0-77.0 % Lymphocytes Automated 54.3 14.0-48.0 % Monocytes Automated 11.2 4.0-13.0 % Eosinophils Automated 5.2 0.0-8.0 % Basophils Automated 1.3 0.0-1.5 % Immature Granulocyte Automated 0.4 0.0-1.0 % Absolute Neutrophil Count 0.6 2.0-8.2 K/uL Absolute Lymphocyte Count 1.3 0.9-3.6 K/uL Absolute Monocyte Count 0.3 0.3-1.0 K/uL Absolute Eosinophil Count 0.1 0.0-0.6 K/uL Absolute Basophil Count 0.0 0.0-0.1 K/uL Absolute Immature Granulocyte 0.01 0.00-0.03 K /uL RBC Morphology, Hematology Reviewed date:03/07/2024 05:05:47 PM Interpretation: Performing Lab: Notes/Report: Test performed by [facility] [address] [place] [address] , [address] , [place] [address] Jordan Trammell MD, Custom Framing Specialist CLIA: [id number] Polychromasia Slight Macrocytosis Moderate Poikilocytosis Marked Anisocytosis Slight [employer] Cell Few Ovalocytes Few Tear Drop Cells Few Platelet Slide Review Decreased PLT: Large Platelets present. Platelet clumps observed on smear. Please submit a full sodium citrate tube (light blue) in addition to EDTA for all future CBC requests. Medications Medication SIG (Take, Route, Frequency, Duration) Notes Start Date End Date Status Melatonin 3 MG 1 tab(s) orally once a day (at bedtime) Active Hydroxychloroquine Sulfate 200 MG Take 1 tablet by mouth twice daily; Duration: 90 Active Vitamin D3 25 MCG 1 tab(s) orally once a day; Duration: 30 day(s) Active Medrol 4 MG as directed orally daily; Duration: 6 days 06/02/2024 Not-Taking Potassium Chloride ER 10 MEQ 1 tablet with food Orally Once a day 11/01/2023 Active Peridex 0.12 % 10 ml orally 2 times a day; Duration: 30 day(s) Active Ibuprofen 800 MG 1 tablet with food o r milk as needed Orally 3 times a day; Duration: 90 days Active BIFIDOBACTERIUM-LACTOBACILL US - 1 CAP(S) ORALLY ONCE A DAY Active Docusate Sodium 100 MG 1 cap(s) orally 2 times a day Active Pantoprazole Sodium 20 MG Take 1 tablet by mouth once daily; Duration: 90 Active Aspirin 81 MG 1 tab(s) orally once a day; Duration: 30 day(s) Active LORazepam 0.5 MG 1 tab(s) orally 3 times a day; Duration: 30 day(s) 08/04/2024 Active Gabapentin 600 MG 1 tab(s) orally 3 times a day 01/14/2024 Active NIFEdipine ER 30 MG Take 1 tablet by mouth once daily Once a day; Duration: 90 days Active Albuterol Sulfate HFA 108 (90 Base) MCG/ACT 2 puff(s) inhaled qid prn Active Furosemide 40 MG 1 tab(s) orally once a day; Duration: 90 days Active amLODIPine Besylate 2.5 MG 1 tab(s) oral ly twice a day Active Narcan 4 MG/0.1ML as directed intranasally once Not-Taking Immunizations Vaccine Route Administration Date Status Comme nts Tetanus Tdap-Adacel (over 7yrs) IM Intramuscular 06/06/2018 Administered Shingrix Unknown 06/05/2021 Administered PNEUMOVAX 23 VACCINE IM Intramuscular 06/06/2018 Administe red PNEUMOVAX 23 VACCINE Unknown 04/30/2020 Administered Fluzone Quad (6months&older) IM Intramuscular 03/15/2020 Administered Fluzone PF Quad (6-35 months) Unknown 04/17/2021 Administered Fluzone PF Quad (6-35 months) Unknown 02/17/2022 Administered Fluzone PF Quad (6-35 months) Unknown 03/25/2023 Administered COVID 19 Moderna Unknown 07/04/2020 Administered COVID 19 Moderna Unknown 08/02/2020 Administered COVID 19 Moderna Unknown 03/05/2021 Administered Problems Problem Type SNOMED Code ICD Code Onset Dates Problem Status W/U Status Risk Notes Problem Information temporarily unavailable Essential hypertension (I10) Active confirmed Problem Information temporarily unavailable Anxiety (F41.9) Active confirmed Problem Information temporarily unavailable Alcohol abuse (F10.10) Active confirmed Problem Information temporarily unavailable Allergic dermatitis (L23.9) Active confirmed Problem Information temporarily unavailable Primary insomnia (F51.01) Active confirmed Problem Information temporarily unavailable Other chronic pain (G89.29) Active confirmed Problem Information temporarily unavailable Centrilobular emphysema (J43.2) Active confirmed Problem Information temporarily unavailable Chronic gingivitis, plaque induced (K05.10) Active confirmed Problem Information temporarily unavailable Other local lupus erythematosus (L93.2) Active confirmed Problem Information temporarily unavailable Male erectile disorder (N52.9) Active confirmed Problem Information temporarily unavailable Other chronic pain (G89.29) Active confirmed Problem Information temporarily unavailable Chronic GERD (K21.9) Active confirmed Problem Information temporarily unavailable Primary osteoarthritis of both knees (M17.0) Active confirmed Problem Information temporarily unavailable Lupus erythematosus (L93.0) Active confirmed Problem Information temporarily unavailable History of CHF (congestive heart failure) (Z86.79) Active confirmed Problem Information temporarily unavailable Status post right knee replacement (Z96.651) Active confirmed Problem Information temporarily unavailable Bilateral carotid artery stenosis (I65.23) Active confirmed Problem Information temporarily unavailable Pure hypercholesterolemia (E78.00) Active confirmed Problem Information temporarily unavailable Benign prostatic hyperplasia without lower urinary tract symptoms (N40.0) Active confirmed Problem Information temporarily unavailable Mixed stress and urge urinary incontinence (N39.46) Active confirmed Problem Information temporarily unavailable Carpal tunnel syndrome on both sides (G56.03) Active confirmed Problem Information temporarily unavailable Systemic lupus erythematosus, unspecified SLE type, unspecified organ involvement status (M32.9) Active confirmed Problem Information temporarily unavailable History of pneumonia (Z87.01) Active confirmed Problem Information temporarily unavailable Status post left knee replacement (Z96.652) Active confirmed Problem Information temporarily unavailable 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) Active confirmed Vital Signs Heart Rate 100 /min 10/23/2024 Blood pressure diastolic 60 mm Hg 10/23/2024 Height 71.50 in 10/23/2024 Blood pressure systolic 120 mm Hg 10/23/2024 Weight 000 lbs 10/23/2024 BMI 25.91 kg/m2 06/02/2024 Encounters Encounter Location Date Provider Diagnosis [facility] [address] [facility] [address] [place], [place] [id number] 03/02/2024 Elif Nugent Essential hypertensi on I10 ; Centrilobular emphysema J43.2 ; Benign prostatic hyperplasia without lower urinary tract symptoms N40.0 ; Status post right knee replacement Z96.651 ; 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 and Lupus erythematosus L93.0 [facility] [address] [facility] [address] [place], [place] [id number] 06/02/2024 Elif Nugent Essential hypertensi on I10 ; Anxiety F41.9 ; Centrilobular emphysema J43.2 ; Status post left knee replacement Z96.652 ; Status post right knee replacement Z96.651 ; Lupus erythematosus L93.0 and Pharyngitis, unspecified etiology J02.9 [facility] [address] [facility] [address] [place] [id number] 10/23/2024 Elif Nugent Closed fracture of distal end of femur with routine healing, unspecified fracture morphology, unspecified laterality, subsequent encounter S72.409D ; Localized edema R60.0 and Systemic lupus erythematosus, unspecified SLE type, unspecified organ involvement status M32.9 [facility] [address] [facility] [address] [place] [id number] 10/31/2024 Elif Nugent [facility] [address] [facility] [address] [place], [place] [id number] 11/10/2023 Elif Nugent [facility] [address] [facility] [address] [place] [id number] 11/19/2023 Carlos A [place] Anxiety F41.9 [facility] [address] [facility] [address] [place] [id number] 12/20/2023 Carlos A [place] Anxiety F41.9 [facility] [address] [facility] [address] [place] [id number] 12/29/2023 Elif Nugent [facility] [address] [facility] [address] [place] [id number] 01/12/2024 Elif Nugent Other chronic pain G89.29 [facility] [address] [place] [id number] 01/20/2024 Elif Nugent Anxiety F41.9 [facility] [address] [place] [id number] 03/07/2024 Elif Nugent [facility] [address] [place] [id number] 04/28/2024 Carlos A [place] Anxiety F41.9 [facility] [address] [place] [id number] 05/30/2024 Elif Nugent Anxiety F41.9 [facility] [address] [place] [id number] 06/02/2024 Elif Nugent [facility] [address] [place] [id number] 08/04/2024 Elif Nugent Anxiety F41.9 [facility] [address] [place] [id number] 08/21/2024 Elif Nugent [facility] [address] [place] [id number] 09/26/2024 Elif Nugent [facility] [address] [place] [id number] 09/29/2024 Elif Nugent [facility] [address] [place] [id number] 10/24/2024 Elif Nugent [facility] [address] [place] [id number] 10/26/2024 Elif Nugent [facility] [address] [place] [id number] 10/26/2024 Elif uNgent Assessments Encounter Date Diagnosis (ICD Code) Assessment Notes Treatment Notes Treatment Clinical Notes Section Notes 11/19/2023 Anxiety (ICD-10 - F41.9) 12/20/2023 Anxiety (ICD-10 - F41.9) 01/20/2024 Anxiety (ICD-10 - F41.9) 03/02/2024 Essential hypertension (ICD-10 - I10) 03/02/2024 Centrilobular emphysema (ICD-10 - J43.2) 05/30/2024 Anxiety (ICD-10 - F41.9) 06/02/2024 Essential hypertension (ICD-10 - I10) 06/02/2024 Anxiety (ICD-10 - F41.9) 10/23/2024 Closed fracture of distal end of femur with routine healing, unspecified fracture morphology, unspecified laterality, subsequent encounter (ICD-10 - S72.409D) 08/04/2024 Anxiety (ICD-10 - F41.9) 10/23/2024 Localized edema (ICD-10 - R60.0) 04/28/2024 Anxiety (ICD-10 - F41.9) 01/12/2024 Other chronic pain (ICD-10 - G89.29) 10/23/2024 Systemic lupus erythematosus, unspecified SLE type, unspecified organ involvement status (ICD-10 - M32.9) 06/02/2024 Centrilobular emphysema (ICD-10 - J43.2) 03/02/2024 Benign prostatic hyperplasia without lower urinary tract symptoms (ICD-10 - N40.0) 03/02/2024 Status post right knee replacement (ICD-10 - Z96.651) 06/02/2024 Status post left knee replacement (ICD-10 - Z96.652) 06/02/2024 Status post right knee replacement (ICD-10 - Z96.651) 03/02/2024 Status post revision of total replacement of right knee (ICD-10 - Z96.651) 03/02/2024 Lupus erythematosus (ICD-10 - L93.0) 06/02/2024 Lupus erythematosus (ICD-10 - L93.0) 06/02/2024 Pharyngitis, unspecified etiology (ICD-10 - J02.9) 10/23/2024 Other Discharge summary with available lab/diagnostic imaging results obtained and reviewed. Discharge medication list reconciled. Appropriate counseling provided. Moderate Complexity Plan Of Treatment Pending Test Test Name Order Date CP-CMP 05/06/2020 P-COHG 05/17/2023 Next Appt Details Provider Name:Elif Seymourkrysten er, 11/13/2024 03:45:00 PM, [address], [place], [place], [id number], Insurance Providers Payer Name Payer Address Payer Phone Subscriber Number Group Number Insured Name Patient Relationship to Insured Coverage Start Date Coverage End Date [employer] (MEDICAR E) [address] [address] [place] [address] [id number] ROHAN COWART Self - patient is the insured Medications Administered Medication Instructions Date of Administration Dosage Notes Dexamethasone 05/21/2010 1 mL Medical (General) History Medical History History ICD Code lupus Raynaud's phenomenon neuropathy COPD 03/21/18 EMG/NCV bilateral carpal tunnel , no radiculopathy or plexopathy Covid vaccine - Jun 2020, Moderna COVID , Moderna booster, Jan 2021 Flu shot 2020 Surgical History Surgery Date(Month/Year) sinus surgery left knee replacement surgery, Dr. Jose clarke, [facility] 09/05/2018 right knee replacement surgery, Dr. Sree wisdom [facility] 12/05/2018 EGD with biopsy 11/2012 Revision of right knee repla cement with Explant antibiotic spacer, Dr Stratton 07/16/22 Left periprosthetic femur fracture Hospitalization History Reason Date(Month/Year) [facility] - mikaela 04/2020 [facility] ER - fall/colitis 06/13/2019 blacked out at home and was taken to [facility] ER and admitted 10/2011
--- OUTSIDE RECORDS SUMMARY | 2024-11-02 11:04 | XMS_ITS | Encounter Summary ---
Author Organization Healthcare Address [address] [place] [address] Care Team Providers Care Mounter Name Role Phone Dario Nugent MD Primary Care Provider [phone] Encounter Details Date Type Department Care Team (Late st Contact Info) Description 09/25/2024 Orders Only External Location [address] [place] [address] Bonnie Mello MD [address] [place] [address] Social History Tobacco Use Types Packs/Day Years [...] [facility] 09/25/2024 4:27 AM EDT documented in this encounter Results * XR [facility] OUTSIDE IMAGES (09/25/2024 4:27 AM EDT) Anatomical Region Laterality Modality Radiographic Karol ging 09/25/2024 4:27 AM EDT us Bonnie Mello MD IMG XR PROCEDURES Final Res ult documented in this encounter Visit Diagnoses Not on filedocumented in this encounter Additional Health Concerns Assessment Noted Time A fall risk assessment has been complete d for the patient 03/03/2022 12:47 PM EDT documented as of this encounter Care Teams Mounter Relationship Specialty Start Date End Date Dario Nugent MD [address] [place] [address] PCP - General 09/20/20 documented as of this encounter
--- OUTSIDE RECORDS SUMMARY | 2024-11-02 11:05 | XMS_ITS | Encounter Summary ---
Author Organization [facility] Address [address] [place] [address] Care Team Providers Care Counter Clerk [employer] Name Role Phone Dario Nugent MD Primary Care Provider [phone] Encounter Details Date Type Department Care Team (Latest Contact Info) Description 09/25/2024 Travel Social History Tobacco Use Types Packs/Day Years Used Date Smoking Tobacco: Every Day Cigarettes Alcohol Use Standard Drinks/Week Comments Yes 35 (1 standard drink = 0.6 oz pu re alcohol) Utilities Answer Date Recorded In the past [...] Do you speak a language other than [place] [facility]? No 09/25/2024 Do you want help with [...] on filedocumented in this encounter Care Teams Counter Clerk [employer] Relationship Specialty Start Date End Date Dario Nugent MD [address] [place] [address] PCP - General Family Medicine 09/25/24 documented as of this encounter
== END 2024-11-02 23:59 | disposition home or self-care (01) ==
LOC: RAD 10:48
PROVIDERS: PCP Family Medicine; Visit Provider Orthopaedic Surgery
DX: S72.352D Displaced comminuted fracture of shaft of left femur, subsequent encounter for closed fracture with routine healing (principal)
CPT/HCPCS: 73552

== ENCOUNTER 2024-11-16 19:52 | Emergency (ER) | payer MEDICARE, SELFPAY ==
--- OUTSIDE RECORDS SUMMARY | 2024-09-25 10:01 | XMS_ITS | Encounter Summary ---
Author Organization [facility] ([place], [place], [place], [place]) Address [address] [place] [address] Care Team Providers Care Bulb Grower Name Role Phone Dario Nugent MD Primary Care Provider [phone] Reason for Referral * Consultation (Routine) - New Request Specialty Diagnoses / Procedures Referred By Keiko archibald Referred To Contact Home Health Services Diagnoses Femur fracture, left (HCC) Moose Granda MD [address] [facility] [address] [place] [address] Phone: tel: fax: Referral ID Status Reason Start Date Expiration Date Visits Requested Visits Authorized [id number] New Request Specialty Services Required 09/25/2024 09/25/2025 1 1 Reason for Visit * Auth/Cert (Routine) Specialty Diagnoses / Procedures Referred By Keiko archibald Referred To Contact Diagnoses Femur fracture, left (HCC) FRACTURE [facility] [address] [address] [place] [address] Phone: tel: fax: [facility] [address] [place] [address] Phone: tel: fax: Referral ID Status Reason Start Date Expiration Date Visits Re quested Visits Authorized [id number] 1 1 Encounter Details Date Type Department Care Team (Late st Contact Info) Description 09/25/2024 10:01 AM EDT - 09/29/2024 5:45 PM EDT Hospital Encounter [facility] [address] [address] [place] [address] Moose Granda MD [address] [place] [address] Johnny Stacy MD [address] [place] [address] Sourav Corbett DO [address] [place] [address] Femur fracture, left (HCC) (Primary Dx) Discharge Disposition: Group Home Facility Social History Tobacco Use Types Packs/Day [...] your living situation today? [facility] 09/25/2024 Think about the [...] Do you speak a language other than [place] at [facility]? No 09/25/2024 Do you want help with school or training? For example, starting or completing job training or getting a high school diploma, GED or equivalent. No 09/25/2024 Physical Activity Answer Date Recorded Number of minutes of exercise per week 0 09/25/2024 Self Management Answer Date Recorded Because of a physical, [...] you used [place] legal drugs? Never 09/25/2024 Mental Health Answer Date Recorded Calculation of above two rows 4 Sex and Gender Information Value Date Recorded [...] Admission: 63 y.o. male that presents to [facility] in transition of care from [facility] emergency department for left distal femur fracture that occurred approximately 2 AM in the morning after tripping on a rug, falling and identifying a snap to his left lower extremity. He presented tot ED and imaging identified left distal femur fracture. Orthopedics was contacted out of the ED and his care was transitioned to [facility]. Currently he reports pain 8 on a [...] Budweiser B12 level with macrocytosis on CBC CIWA protocol Seizure precautions Benzodiazepine therapy Gabapentin therapy [...] physical therapy daily. On September 28 Darin Noel with PT stated the following: progressing with [...] B12 level with macrocytosis on CBC [facility] protocol Seizure precautions Benzodiazepine therapy Gabapentin [...] after he leaves here. Previously went to [facility] rehab with a knee replacement in the [...] where most of his family is in [facility]. His ex- linda Jorge [facility] and he plans on going home with her after he leaves the rehab but for now he like to go to someplace closer to [facility]. Discussed with the manager of case management she is looking into it. Will get [...] that he is open to going to [facility] rehab and I encouraged him to consider [...] Surgeon: Chuy Johnson MD Assistants: Courtney surgical elastic knitter hand frame Anesthesia: General EBL: 200 mls Complications: None [...] as 2 proximal interlocking screws using perfect [place] technique. A locking cap was placed distally. [...] Your Medications These medications were sent to [facility] - [place], [place] - [address], [facility] [address] acetaminophen 500 MG tablet cyanocobalamin 500 MCG [...] daily x 3 months . Vitals: 09/28/24200909/28/24 20209/28/24 2345 09/29/24 0445 BP: 129/69 (!) 142/68 [...] Family Medicine Relationship: PCP - General [address] [place] [id number] Next Steps: Follow up in 2 week(s) Instructions: cmp cbc Chuy Johnson MD Specialty: Orthopedic Surgery [address] [facility] [address] Floor [facility] [address] Next Steps: Follow up in 10 day(s) [...] discharged per physician order to rehab facility [facility]. Pt IV removed without issues. Ptverbalized understanding of discharge plan and instructions. Pt transported via medical transport. Report called by this RN to Purnima at receiving facility. * Malka Villanueva OTR/L - 09/29/2024 1:43 PM EDT Images from the original note were not included. Inpatient Occupational Therapy Attempt to Treat Patient Name: Christian Castorena Birthday: 1960 Date of Attempt: 09/29/2024 Pt has been up with nursing staff today and would like to rest at this time as he is scheduled for discharge to [facility] this afternoon for further rehab. Electronically signed by Malka Villanueva OTR/Clara - 09/29/2024 - 1:44 PM EDT * [...] Discharge Disposition SNF SNF Name and Number [facility] [phone] Transportation Provider [facility] transport Date of supervisor word processing 09/29/24 Time of supervisor word processing 1100 CM received notification from Hillary that [facility] does have a bed open now and patient can admit today. Number for report is [phone]. [facility] to transport via , CM requested transport to provide oxygen for trip also. Patient to be in front lobby at 1100, nurse and provider updated. CM updated patient and ex-spouse Quynh. 1253: Transport needed to be delayed per [facility]. Patient now ok to admit. Per Hillary transport will now be with [facility] at 1730 and they will come to the room to get patient. CM updated patient, ex-spouse, nursing and provider. DC summary faxed to unit at [phone]. Packet placed in chart. * Johnny Stacy MD - 09/29/2024 8:25 AM EDT Images from the original note were not included. Subjective Thursday, September 26, 2024. Patient seen this afternoon with nurse Tomas RN at the bedside as well as patient's very pleasant ex-. Patient states that they are best friends and that she takes great care of him. She states that after he leaves here she hopes that he will be able to go home with her to [facility]. His primary care doctor is Dr. Ralph Nugent MD longtime primary care doctor up there. He states he went to [facility] in the past after he got knee [...] B12 level with macrocytosis on CBC [facility] protocol Seizure precautions Benzodiazepine therapy Gabapentin [...] after he leaves here. Previously went to [facility] rehab with a knee replacement in the [...] where most of his family is in [facility]. His ex- linda Jorge [facility] and he plans on going home with her after he leaves the rehab but for now he like to go to someplace closer to [facility]. Discussed with the manager of case management she is looking into it. Will get [...] that he is open to going to [facility] rehab and I encouraged him to consider it as they have many wonderful options. He states the last time he was there he felt like the nursesdid not come quickly enough when he called them. I told that is probably, to be honest, can to be an issue no matter where he goes so he should try to keep an open mind. Wednesday, September 29, 2024. Nice pleasant gentleman seen [...] days Expected discharge disposition (home, SNF/Rehab, etc): [facility] then after that home with xwife to [facility] with pt ot HH Additional discharge needs or delays: * Stephie Sorto RN - 09/28/2024 2:17 PM EDT AURELIANO received notification from Hillary with [facility] that precert is approved and patient has been placed on list for SRU bed. AURELIANO sent message to Ad[facility] to check and see if [facility] could take patient tomorrow if [facility] doesn't have a bed open up by then (could have precert transferred). 1546: updated patient that precert approved for [facility] however they do not currently have an open bed. Advised that need to send out additional SNF referrals. Patient requested to have AURELIANO discuss with ex- Quynh. AURELIANO spoke with Quynh and she is agreeable to sending referrals throughout [facility], [facility], and [place]. Referrals sent via [facility]. AURELIANO spoke with Diane with [facility] and she advised no current male beds [...] 11:39 AM EDT Discharge Plan Progress Note AURELIANO spoke with Hillary with [facility]. Per Hillary, patient's insurance is likely to [...] will continue to monitor patient mobility also. AURELIANO will continue to follow up with SNF's for possible back up offer if [facility] can not take. Virgil Glez reviewing. CM updated patient and ex Quynh. MM 09/28/24 Plan: precert started for SRU at [facility], but they do not have open bed currently. If precert approved before bed opens up then per Hillary she can call [employer] and have the precert transferred to another SNF. Will need assist with transport due to mobility. Stephie Sorto RN * Darin Noel, PT - 09/28/2024 10:07 AM EDT Images from the original note were not included. Inpatient Physical Therapy Treatment Patient Name: Christian Castorena Date of : 1960 Date of Treatment: 09/28/24 Start Time 0953 Stop Time 1007 Session Duration 14 minutes CPT CODES: 47820 Gait training x 1 General Visit Type: [...] training. Wheelchair Mobility Not assessed, patient ambulatory. AM-[facility] Basic Mobility Inpatient Short Form How [...] Score Raw score=8 t-Scale score=28.58 Standard error=4.04 [facility] 0-100%=86.62% MDC=4.72 A raw score of >= [...] patient's discharge summary. Electronically signed by Darin Cohen PT - 09/28/24 - 11:56 AM EDT * Malka Villanueva, OTR/Clara - 09/28/2024 9:53 AM EDT Images from the original note were not included. Inpatient Occupational Therapy Treatment Note Patient Name: Christian Castorena Date of : 1960 Date of Treatment: 09/28/24 Start Time: 952 Stop Time: 1007 Session Duration: 14 minutes CPT CODES: 21473 ADL/self-care/home management This patient is a 63 y.o. male admitted on 09/25/2024 with Femur fracture, left (HCC) [S72.92XA] Closed fracture of left distal femur (HCC) [S72.402A]. Past Medical History: Diagnosis Date COPD (chronic obstructive pulmonary disease) ([facility]) Lupus (systemic lupus erythematosus) ([facility]) Neuropathy Osteoarthritis Past Surgical History: Procedure Laterality Date IM RODDING,FEMUR Left 09/26/2024 Procedure: LEFT RETROGRADE NAILING OF KNEE.; Surgeon: Chuy Johnson MD; Location: [facility]; Service:Orthopedic Surgery; Laterality: Left; REPLACEMENT TOTAL KNEE [...] summary. Electronically signed by ANGELO Willard/Clara - 09/28/2024 - 10:29 AM EDT * Stephie Sorto RN - 09/28/2024 8:31 AM EDT Spoke with ex- Quynh, she states that family is requesting [facility] referral. CM discussed with patient and he is agreeable. Referral sent via [facility]. * Johnny Stacy MD - 09/28/2024 7:13 [...] able to go home with her to [facility]. His primary care doctor is Dr. Ralph Nugent MD longtime primary care doctor up there. He states he went to [facility] in the past after he got knee [...] B12 level with macrocytosis on CBC [facility] protocol Seizure precautions Benzodiazepine therapy Gabapentin [...] after he leaves here. Previously went to [facility] rehab with a knee replacement in the [...] where most of his family is in [facility]. His ex- linda Jorge [facility] and he plans on going home with her after he leaves the rehab but for now he like to go to someplace closer to [facility]. Discussed with the manager of case management she is looking into it. Will get [...] that he is open to going to [facility] rehab and I encouraged him to consider [...] (home, SNF/Rehab, etc): snf preferably close to [facility] versus [facility] then after that home with xwife to [facility] with pt ot HH Additional discharge needs or delays: * Stephie Sorto RN - 09/27/2024 2:53 PM EDT Discharge Plan Progress Note AURELIANO spoke with [facility] admissions and was advised they do not have access to [facility] to receive referral, however they do not currently have any male beds open at this time. [facility] is still reviewing referral. CM provided patient with additional options to send more referrals. Patient agreeable to sending referrals to [facility] and [facility] and referrals sent via [facility]. Stephie Sorto RN * Chuy Johnson [...] from the original note were not included. [facility] Multidisciplinary Rounding Form Patient Name: Christian Castorena [...] with patient at bedside. ..Patient/family provided with [facility] approved choice list and Patient choice letter along with Quality data link to access Medicare.gov Care Compare website to review potential post-acute providers. Choice provided to patient/family, and patient preferences received and referral(s) submitted to requested providers. Referral(s) submitted to: [facility] and [facility]. CM left message for liaison Channing with [facility] requesting call back and with [facility] (left message and requested call back). 1102: spoke with Diane at [facility] ([phone]) and she confirms receiving referral and will contact CM after reviewing. 09/27/24 Plan: femur fracture, PT recs rehab. Referrals sent to [facility] and [facility]. CM left messages at both facilities, awaiting call back. Will need bed offer and precert. May need assist with transport depending on mobility. Pt is current with [facility] for home health. Stephie Sorto RN * Darin Cohen PT - 09/27/2024 8:54 AM EDT Images from the original note were not included. Inpatient Physical Therapy Initial Evaluation Patient Name: Christian Castorena Date of : 1960 Date of Evaluation: 09/27/24 In Time 0838 Out Time 0854 Session Duration 16 minutes Time spent for nursing collaboration, chart and systems review, and clinical reasoning. 10 minutes Total Time 26 minutes 73572 Eval mod complex, No charge Rehab each add 15 min x 1 Pt is a 63 y.o. male admitted on 09/25/2024 with Femur fracture, left ([facility]) [S72.92XA] Closed fracture of left distal femur ([facility]) [S72.402A]. Past Medical History: Diagnosis Date COPD (chronic obstructive pulmonary disease) ([facility]) Lupus (systemic lupus erythematosus) ([facility]) Neuropathy Osteoarthritis Past Surgical History: Procedure Laterality [...] Mobility Not assessed, patient ambulatory. Outcome Measures -[facility] Basic Mobility Inpatient Short Form How [...] Score Raw score=8 t-Scale score=28.58 Standard error=4.04 [facility] 0-100%=86.62% MDC=4.72 A raw score of >= [...] a left pedal pulse. Daniel RN * Malka Villanueva OTR/Clara - 09/27/2024 8:34 AM EDT Images from the original note were not included. Inpatient Occupational Therapy Initial Evaluation Patient Name: Christian Castorena Date of : 1960 Date of Evaluation: 09/27/24 Start Time: 833 Stop Time: 856 Session Duration: 23 minutes Total time: 33 minutes spent, including 10 minutes for nursing collaboration, thorough chart and systems review, and clinical reasoning. CPT CODES: 86685 Eval mod complexity and 94288 ADL/self-care/home management This patient is a 63 y.o. male admitted on 09/25/2024 with Femur fracture, left ([facility]) [S72.92XA] Closed fracture of left distal femur ([facility]) [S72.402A]. Past Medical History: Diagnosis Date COPD (chronic obstructive pulmonary disease) ([facility]) Lupus (systemic lupus erythematosus) ([facility]) Neuropathy Osteoarthritis Past Surgical History: Procedure Laterality [...] body dressing:Maximal Assistance Toileting:Maximal Assistance Outcome Measures [facility] Daily Living Functional Assessment How much help [...] (Minimal/Contact guard/Supervision/Setup) 4=None (Modified independent/Independent) The patient's [facility] raw score is 16. The patient currently has 53.32% functional impairment. Clinicians are most likely to recommend inpatient/SNF/terminal clerk care for patients with scores between 6-17, [...] discharge summary. Electronically signed by Malka Villanueva OTR/L - 09/27/2024 - 10:33 AM EDT OT [...] will be able to go home with [facility]. His primary care doctor is Dr. Ralph Nugent MD longtime primary care doctor up there. He states he went to [facility] in the past after he got knee replacement. He states in the past when he had a knee replacement he ended up getting an infection require long-term IV antibiotics and there was some concern that he might be at risk of losing the leg but fortunately is able toget through it. This afternoon no fevers or [...] reviewed, interpreted, and dictated by Dr. Rudy Atkisn. Transcribed by David Ledezma PA-C. Assessment Plan [...] B12 level with macrocytosis on CBC [facility] protocol Seizure precautions Benzodiazepine therapy Gabapentin [...] after he leaves here. Previously went to [facility] rehab with a knee replacement in the [...] where most of his family is in [facility] [place]. His ex- linda Jorge [facility] and he plans on going home with her after he leaves the rehab but for now he like to go to someplace closer to [facility]. Discussed with the manager of case management she is looking into it. Will get [...] (home, SNF/Rehab, etc): snf preferably close to [facility] then after that home with xwife to [facility] with pt ot HH Additional discharge needs or delays: * Stephie Sorto RN - 09/26/2024 2:11 PM EDT Discharge Plan Progress Note MDR attended with team. Surgery today for Left hip fracture. CM to follow for PT/OT evals after surgery for final discharge needs. CM received notification that patient is current with [facility]. MM 09/26/24 Plan: pt current with [facility]. Surgery today for hip fracture. Pt prefers [...] able to go home with her to [facility]. His primary care doctor is Dr. Ralph Nugent MD longtime primary care doctor up there. He states he went to [facility] in the past after he got knee [...] 87 BPM ATRIAL RATE (MCT) 87 BPM MI Interval 122 ms QRS-INTERVAL (MSEC) 80 ms QT Interval 364 ms QTC Interval 438 ms P [place] 30 degrees R AXIS (MCT) 44 degrees T Wave [place] 41 degrees [place] Diagnosis Normal sinus rhythm Normal ECG No [...] Images reviewed, interpreted, and dictated by Dr. Ruyd Atkins. Transcribed by Berkley Chin PA-C. Assessment [...] B12 level with macrocytosis on CBC [facility] protocol Seizure precautions Benzodiazepine therapy Gabapentin [...] after he leaves here. Previously went to [facility] rehab with a knee replacement in the [...] etc): snf vs home with xwife to [facility] with pt ot HH Additional discharge needs or delays: * Malka Villanueva OTR/L - 09/26/2024 7:55 AM EDT Images from [...] from the original note were not included. [facility] Physical Therapy Patient Screening Patient Name: Christian [...] a 63 y.o. male that presents to [facility] in transition of [facility] emergency department for left distal femur fracture that occurred approximately2 AM in the morning after tripping on a rug, falling and identifying a snap to his left lower extremity. He presented to the ED and imaging identified left distal femur fracture. Orthopedics was contacted out of the ED and his care was transitioned to [facility]. Currently he reports pain 8 on a [...] History He is and lives alone in [facility]. He has 3 adult children. He identifies [...] B12 level with macrocytosis on CBC [facility] protocol Seizure precautions Benzodiazepine therapy Gabapentin [...] interested in home health. Patient/family provided with [facility] approved choice list and patient choice letter [...] home health providers in the area of [place]. CM provided patient with a list of home health agencies near and/or in [place]. Patient's address for home health will be [address] [place] [phone]. Family is discussing home health agencies and [...] Surgeon: Chuy Johnson MD Assistants: Courtney surgical elastic knitter hand frame Anesthesia: General EBL: 200 mls Complications: None [...] as 2 proximal interlocking screws using perfect [place] technique. A locking cap was placed distally. [...] 1 HOUR Routine 09/26/2024 12:30 PM EDT MI OPTX FEM SHFT FX W/INSJ IMED IMPLT W/WO SCREW 09/26/2024 10:49 AM EDT Knee injury CBC W/ AUTO DIFF Routine 09/26/2024 2:42 AM EDT MAGNESIUM Routine 09/26/2024 2:42 AM [...] - 146 meq/L 09/29/2024 5:44 AM EDT [facility] Potassium 3.5 3.5 - 5.1 meq/L 09/29/2024 5:44 AM EDT [facility] Chloride 105 102 - 112 meq/L 09/29/2024 5:44 AM EDT [facility] CO2 22 21 - 32 meq/L 09/29/2024 5:44 AM EDT [facility] Calcium 7.8(L) 8.5 - 10.1 mg/dL 09/29/2024 5:44 AM EDT [facility] Glucose 89 74 - 106 mg/dL 09/29/2024 5:44 AM EDT [facility] BUN 8 7 - 22 mg/dL 09/29/2024 5:44 AM EDT [facility] Creatinine 1.03 0.70 - 1.30 mg/dL 09/29/2024 5:44 AM EDT [facility] BUN/Creatinine 8 8 - 20 09/29/2024 5:44 AM EDT [facility] Albumin 2.1(L) 3.4 - 5.0 g/dL 09/29/2024 5:44 AM EDT [facility] Alkaline Phosphatase 74 27 - 136 U/L 09/29/2024 5:44 AM EDT [facility] ALT 25 12 - 78 U/L 09/29/2024 5:44 AM EDT [facility] AST 29 5 - 37 U/L 09/29/2024 5:44 AM EDT [facility] Total Bilirubin 0.8 0.2 - 1.3 mg/dL 09/29/2024 5:44 AM EDT [facility] Protein, Total 5.9(L) 6.4 - 8.2 gm/dL 09/29/2024 5:44 AM EDT [facility] Anion Gap 10 9 - 20 09/29/2024 5:44 AM EDT [facility] A/G Ratio 0.6(L) 1.1 - 2.5 09/29/2024 5:44 AM EDT [facility] Globulin 3.8 1.5 - 4.5 g/dL 09/29/2024 5:44 AM EDT [facility] Osmolality Calc 264.2 mOsm/kg 5:44 AM EDT [facility] eGFR (mL/min/1.73m2) >60 >=60 mL/min/1.7 3m2 09/29/2024 5:44 AM EDT [facility] Comment:ESTIMATED GFR IS NOT ACCURATE CREATININE CLEARANCE IN PREDICTING GLOMERULAR FILTRATION RATE. ESTIMATED GFR IS NOT APPLICABLE FOR DIALYSIS PATIENTS. Blood Venipuncture / Unknown 09/29/2024 4:19 AM EDT 09/29/2024 4:23 AM EDT us Johnny Stacy MD LAB BLOOD ORDERABLES Final Result Performing Organization Address City/State/[facility] Co de Phone Number [facility] [address] [place] [address] * (ABNORMAL) CBC with automated diff (09/29/2024 4:19 AM EDT) WBC 4.3 3.9 - 10.0 K/ L 09/29/2024 4:32 AM EDT [facility] RBC 2.43(L) 4.63 - 6.08 M/ L 09/29/2024 4:32 AM EDT [facility] Hemoglobin 9.5(L) 11.2 - 15.7 GM/DL 09/29/2024 4:32 AM EDT [facility] Hematocrit 28.0(L) 40.1 - 51.0 % 09/29/2024 4:32 AM EDT [facility] MCV 115(H) 79 - 95 fL 09/29/2024 4:32 AM EDT [facility] MCH 39.1(H) 25.6 - 32.2 pg 09/29/2024 4:32 AM EDT [facility] MCHC 33.9 32.3 - 36.5 GM/DL 09/29/2024 4:32 AM EDT [facility] RDW 12.7 11.6 - 14.4 % 09/29/2024 4:32 AM EDT [facility] Platelets 88(L) 163 - 369 K/CU MM 09/29/2024 4:32 AM EDT [facility] MPV 10.8 9.4 - 12.4 fL 09/29/2024 4:32 AM EDT [facility] % Neutros 61 34 - 68 % 09/29/2024 4:32 AM EDT [facility] % Lymphs 25 19 - 53 % 09/29/2024 4:32 AM EDT [facility] % Monos 9 4 - 13 % 09/29/2024 4:32 AM EDT [facility] % Eos 4 1 - 7 % 09/29/2024 4:32 AM EDT [facility] % Baso 1 0 - 1 % 09/29/2024 4:32 AM EDT [facility] # Neutros 2.62 1.56 - 6.13 K/ L 09/29/2024 4:32 AM EDT [facility] # Lymphs 1.08(L) 1.18 - 3.74 K/ L 09/29/2024 4:32 AM EDT [facility] # Monos 0.39 0.24 - 0.82 K/ L 09/29/2024 4:32 AM EDT [facility] # Eos 0.15 0.04 - 0.54 K/ L 09/29/2024 4:32 AM EDT [facility] # Baso 0.02 0.01 - 0.08 K/ L 09/29/2024 4:32 AM EDT [facility] Immature Granulocytes-Re lative 0.20 0.00 - 0.60 % 09/29/2024 4:32 AM EDT [facility] # IG 0.01 0.00 - 0.05 K/uL 09/29/2024 4:32 AM EDT [facility] Blood Venipuncture / Unknown 09/29/2024 4:19 AM EDT 09/29/2024 4:23 AM EDT Narrative [facility] - 09/29/2024 4:32 AM EDT When [...] Stacy MD LAB BLOOD ORDERABLES Final Result [facility] [address] [place] [phone] * (ABNORMAL) Comprehensive metabolic panel (09/28/2024 3:35 AM EDT) Sodium 134(L) 136 - 146 meq/L 09/28/2024 4:23 AM EDT [facility] Potassium 4.5 3.5 - 5.1 meq/L 09/28/2024 4:23 AM EDT [facility] Chloride 104 102 - 112 meq/L 09/28/2024 4:23 AM EDT [facility] CO2 23 21 - 32 meq/L 09/28/2024 4:23 AM EDT [facility] Calcium 8.4(L) 8.5 - 10.1 mg/dL 09/28/2024 4:23 AM EDT [facility] Glucose 94 74 - 106 mg/dL 09/28/2024 4:23 AM EDT [facility] BUN 14 7 - 22 mg/dL 09/28/2024 4:23 AM EDT [facility] Creatinine 1.21 0.70 - 1.30 mg/dL 09/28/2024 4:23 AM EDT [facility] BUN/Creatinine 12 8 - 20 09/28/2024 4:23 AM EDT [facility] Albumin 2.4(L) 3.4 - 5.0 g/dL 09/28/2024 4:23 AM T [facility] Alkaline Phosphatase 83 27 - 136 U/L 09/28/2024 4:23 AM EDT [facility] ALT 32 12 - 78 U/L 09/28/2024 4:23 AM EDT [facility] AST 43(H) 5 - 37 U/L 09/28/2024 4:23 AM EDT [facility] Total Bilirubin 0.8 0.2 - 1.3 mg/dL 09/28/2024 4:23 AM T [facility] Protein, Total 6.6 6.4 - 8.2 gm/dL 09/28/2024 4:23 AM T [facility] Anion Gap 12 9 - 20 09/28/2024 4:23 AM T [facility] A/G Ratio 0.6(L) 1.1 - 2.5 09/28/2024 4:23 AM T [facility] Globulin 4.2 1.5 - 4.5 g/dL 09/28/2024 4:23 AM [facility] Osmolality Calc 268.5 mOsm/kg 4:23 AM [facility] eGFR (mL/min/1.73m2) >60 >=60 mL/min/1.7 3m2 09/28/2024 4:23 AM T [facility] Comment:ESTIMATED GFR IS NOT ACCURATE CREATININE CLEARANCE IN PREDICTING GLOMERULAR FILTRATION RATE. ESTIMATED GFR IS NOT APPLICABLE FOR DIALYSIS PATIENTS. Blood Venipuncture / Unknown 09/28/2024 3:35 AM EDT 09/28/2024 3:50 AM EDT us Johnny Stacy MD LAB BLOOD ORDERABLES Final Result [facility] [address] [employer] [place] [address], [facility] [phone] * (ABNORMAL) CBC with automated diff (09/28/2024 3:35 AM EDT) WBC 5.8 3.9 - 10.0 K/ L 09/28/2024 4:07 AM EDT [facility] RBC 2.57(L) 4.63 - 6.08 M/ L 09/28/2024 4:07 AM EDT [facility] Hemoglobin 10.1(L) 11.2 - 15.7 GM/DL 09/28/2024 4:07 AM EDT [facility] Hematocrit 29.6(L) 40.1 - 51.0 % 09/28/2024 4:07 AM EDT [facility] MCV 115(H) 79 - 95 fL 09/28/2024 4:07 AM EDT [facility] MCH 39.3(H) 25.6 - 32.2 pg 09/28/2024 4:07 AM EDT [facility] MCHC 34.1 32.3 - 36.5 GM/DL 09/28/2024 4:07 AM EDT [facility] RDW 12.6 11.6 - 14.4 % 09/28/2024 4:07 AM EDT [facility] Platelets 79(L) 163 - 369 K/CU MM 09/28/2024 4:07 AM EDT [facility] MPV 10.6 9.4 - 12.4 fL 09/28/2024 4:07 AM EDT [facility] % Neutros 69(H) 34 - 68 % 09/28/2024 4:07 AM EDT [facility] % Lymphs 20 19 - 53 % 09/28/2024 4:07 AM EDT [facility] % Monos 9 4 - 13 % 09/28/2024 4:07 AM EDT [facility] % Eos 2 1 - 7 % 09/28/2024 4:07 AM EDT [facility] % Baso 0 0 - 1 % 09/28/2024 4:07 AM EDT [facility] # Neutros 3.96 1.56 - 6.13 K/ L 09/28/2024 4:07 AM EDT [facility] # Lymphs 1.15(L) 1.18 - 3.74 K/ L 09/28/2024 4:07 AM EDT [facility] # Monos 0.50 0.24 - 0.82 K/ L 09/28/2024 4:07 AM EDT [facility] # Eos 0.10 0.04 - 0.54 K/ L 09/28/2024 4:07 AM EDT [facility] # Baso 0.02 0.01 - 0.08 K/ L 09/28/2024 4:07 AM EDT [facility] Immature Granulocytes-Re lative 0.90(H) 0.00 - 0.60 % 09/28/2024 4:07 AM EDT [facility] # IG 0.05 0.00 - 0.05 K/uL 09/28/2024 4:07 AM EDT [facility] Blood Venipuncture / Unknown 09/28/2024 3:35 AM EDT 09/28/2024 3:49 AM EDT Narrative [facility] - 09/28/2024 4:07 AM EDT When [...] Blast? Flag noted Atypical Lymph flag noted Johnny Stacy MD LAB BLOOD ORDERABLES Final Result [facility] [address] [phone] * Ammonia (09/27/2024 4:22 AM EDT) Ammonia 22 11 - 32 mol/L 09/27/2024 6:00 AM EDT [facility] Blood Venipuncture / Unknown 09/27/2024 4:22 AM EDT 09/27/2024 5:16 AM EDT Johnny Stacy MD LAB BLOOD ORDERABLES Final Result Performing Organization Address [facility] Co de Phone Number [facility] [address] [phone] * PT/INR, PTT (09/27/2024 4:22 AM EDT) aPTT 28.1 22.0 - 32.0 seconds 09/27/2024 5:38 AM EDT [facility] Protime 10.9 9.0 - 12.0 seconds 09/27/2024 5:38 AM EDT [facility] INR 1.00 0.80 - 1.10 09/27/2024 5:38 AM EDT [facility] Blood Venipuncture / Unknown 09/27/2024 4:22 AM EDT 09/27/2024 5:14 AM EDT Johnny Stacy MD LAB BLOOD ORDERABLES Final Result Performing Organization Address [facility] Co de Phone Number [facility] [address] [phone] * (ABNORMAL) Comprehensive metabolic panel (09/27/2024 4:22 AM EDT) Sodium 132(L) 136 - 146 meq/L 09/27/2024 6:00 AM EDT [facility] Potassium 4.5 3.5 - 5.1 meq/L 09/27/2024 6:00 AM EDT [facility] Chloride 104 102 - 112 meq/L 09/27/2024 6:00 AM EDT [facility] CO2 22 21 - 32 meq/L 09/27/2024 6:00 AM EDT [facility] Calcium 8.4(L) 8.5 - 10.1 mg/dL 09/27/2024 6:00 AM EDT [facility] Glucose 98 74 - 106 mg/dL 09/27/2024 6:00 AM EDT [facility] BUN 15 7 - 22 mg/dL 09/27/2024 6:00 AM EDT [facility] Creatinine 1.30 0.70 - 1.30 mg/dL 09/27/2024 6:00 AM T [facility] BUN/Creatinine 12 8 - 20 09/27/2024 6:00 AM T [facility] Albumin 2.3(L) 3.4 - 5.0 g/dL 09/27/2024 6:00 AM [facility] Alkaline Phosphatase 67 27 - 136 U/L 09/27/2024 6:00 AM T [facility] ALT 34 12 - 78 U/L 09/27/2024 6:00 AM T [facility] AST 41(H) 5 - 37 U/L 09/27/2024 6:00 AM [facility] Total Bilirubin 1.0 0.2 - 1.3 mg/dL 09/27/2024 6:00 AM [facility] Protein, Total 6.2(L) 6.4 - 8.2 gm/dL 09/27/2024 6:00 AM [facility] Anion Gap 11 9 - 20 09/27/2024 6:00 AM [facility] A/G Ratio 0.6(L) 1.1 - 2.5 09/27/2024 6:00 AM [facility] Globulin 3.9 1.5 - 4.5 g/dL 09/27/2024 6:00 AM [facility] Osmolality Calc 265.3 mOsm/kg 6:00 AM [facility] eGFR (mL/min/1.73m2) >60 >=60 mL/min/1.7 3m2 09/27/2024 6:00 AM [facility] Comment:ESTIMATED GFR IS NOT ACCURATE CREATININE CLEARANCE IN PREDICTING GLOMERULAR FILTRATION RATE. ESTIMATED GFR IS NOT APPLICABLE FOR DIALYSIS PATIENTS. Blood Venipuncture / Unknown 09/27/2024 4:22 AM EDT 09/27/2024 5:14 AM EDT us Johnny Stacy MD LAB BLOOD ORDERABLES Final Result [facility] [address] [phone] * (ABNORMAL) CBC with automated diff (09/27/2024 4:22 AM EDT) WBC 7.2 3.9 - 10.0 K/ L 09/27/2024 5:42 AM EDT [facility] RBC 2.63(L) 4.63 - 6.08 M/ L 09/27/2024 5:42 AM EDT [facility] Hemoglobin 10.3(L) 11.2 - 15.7 GM/DL 09/27/2024 5:42 AM EDT [facility] Hematocrit 30.9(L) 40.1 - 51.0 % 09/27/2024 5:42 AM EDT [facility] MCV 118(H) 79 - 95 fL 09/27/2024 5:42 AM EDT [facility] MCH 39.2(H) 25.6 - 32.2 pg 09/27/2024 5:42 AM EDT [facility] MCHC 33.3 32.3 - 36.5 GM/DL 09/27/2024 5:42 AM EDT [facility] RDW 12.7 11.6 - 14.4 % 09/27/2024 5:42 AM EDT [facility] Platelets 78(L) 163 - 369 K/CU MM 09/27/2024 5:42 AM EDT [facility] MPV 11.0 9.4 - 12.4 fL 09/27/2024 5:42 AM EDT [facility] % Neutros 85(H) 34 - 71 % 09/27/2024 5:42 AM EDT [facility] % Lymphs 10(L) 19 - 53 % 09/27/2024 5:42 AM EDT [facility] % Monos 4 4 - 13 % 09/27/2024 5:42 AM EDT [facility] % Eos 1 1 - 7 % 09/27/2024 5:42 AM EDT [facility] % Baso 0 0 - 1 % 09/27/2024 5:42 AM EDT [facility] # Neutros 6.09 1.56 - 6.13 K/ L 09/27/2024 5:42 AM EDT [facility] # Lymphs 0.75(L) 1.18 - 3.74 K/ L 09/27/2024 5:42 AM EDT [facility] # Monos 0.25 0.24 - 0.82 K/ L 09/27/2024 5:42 AM EDT [facility] # Eos 0.04 0.04 - 0.54 K/ L 09/27/2024 5:42 AM EDT [facility] # Baso 0.02 0.01 - 0.08 K/ L 09/27/2024 5:42 AM EDT [facility] Immature Granulocytes-Re lative 0.70(H) 0.00 - 0.60 % 09/27/2024 5:42 AM EDT [facility] # IG 0.05 0.00 - 0.05 K/uL 09/27/2024 5:42 AM EDT [facility] Blood Venipuncture / Unknown 09/27/2024 4:22 AM EDT 09/27/2024 5:14 AM EDT Narrative [facility] - 09/27/2024 5:42 AM EDT When [...] Stacy MD LAB BLOOD ORDERABLES Final Result [facility] [address] [place] [address], [facility] [phone] * US abdomen limited (09/26/2024 4:30 PM [...] electronically signed by Favian Terrell MD Voice field technician technology (Tractione) is used for the dictation of this note and sound-alike words might be erroneously placed despite reviewing this note for accuracy. Errors in dictation may reflect use of voice recognition software and not all errors in field technician may have been detected prior to signing. [...] electronically signed by Favian Terrell MD Voice field technician technology (Power Scribe) is used for the dictation of this note and sound-alike words might be erroneously placed despite reviewing this note for accuracy. Errors in dictation may reflect use of voice recognition software and not all errors in field technician may have been detected prior to signing. us Johnny Stacy MD IMG US ORDERABLES Final Re sult * XR FEMUR [...] by Jessica Pierre PA-C. Chuy Johnson MD IMG DIAGNOSTIC IMAGING ORDERABLE S Final Result * Fluoroscopy less than 1 hour (09/26/2024 12:30 PM EDT) Anatomical Region Laterality Modality X-Ray 09/27/2024 7:55 AM EDT Impressions 09/27/2024 8:40 AM EDT Please see postoperative report. Images reviewed, interpreted, and dictated by Dr. Rudy Atkisn. Transcribed by David Ledezma PA-C. Narrative 09/27/2024 [...] by David Ledezma PA-C. Chuy Johnson MD IMG FLUOROSCOPY ORDERABLES Final Result * (ABNORMAL) Basic Metabolic Panel (09/26/2024 2:42 AM EDT) Sodium 133(L) 136 - 146 meq/L 09/26/2024 3:44 AM EDT [facility] Potassium 4.1 3.5 - 5.1 meq/L 09/26/2024 3:44 AM EDT [facility] Chloride 102 102 - 112 meq/L 09/26/2024 3:44 AM EDT [facility] CO2 25 21 - 32 meq/L 09/26/2024 3:44 AM EDT [facility] Anion Gap 10 9 - 20 09/26/2024 3:44 AM EDT [facility] BUN 9 7 - 22 mg/dL 09/26/2024 3:44 AM EDT [facility] Creatinine 1.21 0.70 - 1.30 mg/dL 09/26/2024 3:44 AM EDT [facility] BUN/Creatinine 7(L) 8 - 20 09/26/2024 3:44 AM EDT [facility] Glucose 84 74 - 106 mg/dL 09/26/2024 3:44 AM EDT [facility] Calcium 8.8 8.5 - 10.1 mg/dL 09/26/2024 3:44 AM EDT [facility] Osmolality Calc 264.3 mOsm/kg 3:44 AM EDT [facility] eGFR (mL/min/1.73m2) >60 >=60 mL/min/1.7 3m2 09/26/2024 3:44 AM EDT [facility] Comment:eGFR of <60 suggests chronic kidney disease if found over a 3 month period of time. eGFR <15 indicates renal failure. Blood Venipuncture / Unknown 09/26/2024 2:42 AM EDT 09/26/2024 2:45 AM EDT Moose Granda MD LAB BLOOD ORDERABLES Final Resul t [facility] [address] [phone] * (ABNORMAL) CBC with automated diff (09/26/2024 2:42 AM EDT) WBC 5.2 3.9 - 10.0 K/ L 09/26/2024 2:52 AM EDT [facility] RBC 3.36(L) 4.63 - 6.08 M/ L 09/26/2024 2:52 AM EDT [facility] Hemoglobin 13.1 11.2 - 15.7 GM/DL 09/26/2024 2:52 AM EDT [facility] Hematocrit 38.4(L) 40.1 - 51.0 % 09/26/2024 2:52 AM EDT [facility] MCV 114(H) 79 - 95 fL 09/26/2024 2:52 AM EDT [facility] MCH 39.0(H) 25.6 - 32.2 pg 09/26/2024 2:52 AM EDT [facility] MCHC 34.1 32.3 - 36.5 GM/DL 09/26/2024 2:52 AM EDT [facility] RDW 13.0 11.6 - 14.4 % 09/26/2024 2:52 AM EDT [facility] Platelets 106(L) 163 - 369 K/CU MM 09/26/2024 2:52 AM EDT [facility] MPV 11.4 9.4 - 12.4 fL 09/26/2024 2:52 AM EDT [facility] % Neutros 67 34 - 68 % 09/26/2024 2:52 AM EDT [facility] % Lymphs 25 19 - 53 % 09/26/2024 2:52 AM EDT [facility] % Monos 6 4 - 13 % 09/26/2024 2:52 AM EDT [facility] % Eos 1 1 - 7 % 09/26/2024 2:52 AM EDT [facility] % Baso 1 0 - 1 % 09/26/2024 2:52 AM EDT [facility] # Neutros 3.53 1.56 - 6.13 K/ L 09/26/2024 2:52 AM EDT [facility] # Lymphs 1.29 1.18 - 3.74 K/ L 09/26/2024 2:52 AM EDT [facility] # Monos 0.29 0.24 - 0.82 K/ L 09/26/2024 2:52 AM EDT [facility] # Eos 0.07 0.04 - 0.54 K/ L 09/26/2024 2:52 AM EDT [facility] # Baso 0.03 0.01 - 0.08 K/ L 09/26/2024 2:52 AM EDT [facility] Immature Granulocytes-Re lative 0.60 0.00 - 0.60 % 09/26/2024 2:52 AM EDT [facility] # IG 0.03 0.00 - 0.05 K/uL 09/26/2024 2:52 AM EDT [facility] Blood Venipuncture / Unknown 09/26/2024 2:42 AM EDT 09/26/2024 2:45 AM EDT Narrative [facility] - 09/26/2024 2:52 AM EDT When [...] ORDERABLES Final Resul t Performing Organization Address City/[facility]/ZIP Co de Phone Number [facility] [address] [phone] * Vitamin B12 (09/26/2024 2:42 AM EDT) Vitamin B12 285 193 - 986 pg/mL 09/26/2024 3:44 AM EDT [facility] Blood Venipuncture / Unknown 09/26/2024 2:42 AM EDT 09/26/2024 2:45 AM EDT Moose Granda MD LAB BLOOD ORDERABLES Final Resul t Performing Organization Address [facility] Co de Phone Number [facility] [address] [phone] * Magnesium (09/26/2024 2:42 AM EDT) Magnesium 1.8 1.5 - 2.4 mg/dL 09/26/2024 3:44 AM EDT [facility] Blood Venipuncture / Unknown 09/26/2024 2:42 AM EDT 09/26/2024 2:45 AM EDT us Moose Granda MD LAB BLOOD ORDERABLES Final Resul t Performing Organization Address City/[facility]/ZIP Co de Phone Number [facility] [address] [phone] * ECG 12 lead (09/25/2024 3:12 PM EDT) VENTRICULAR RATE EKG/MIN 87 BPM GE MUSE ATRIAL RATE (MCT) 87 BPM GE MUSE MI Interval 122 ms GE MUSE QRS-INTERVAL (MSEC) 80 ms GE MUSE QT Interval 364 ms GE MUSE QTC Interval 438 ms GE MUSE P [place] 30 degrees GE MUSE R AXIS (MCT) 44 degrees GE MUSE T Wave [place] 41 degrees GE MUSE [place] Diagnosis Normal sinus rhythm Normal ECG No previous ECGs available Confirmed by Anju DURON SUZANNE ([id number]) on 09/26/2024 10:57:46 AM GE MUSE 09/25/2024 3:12 PM EDT 09/26/2024 10:57 AM EDT Moose Granda MD ECG ORDERABLES Final Result GE MUSE * XR chest AP portable [...] by Dr. Rudy Atkins. Transcribed by Berkley VanHoose, PA-C. Moose Granda MD IMG DIAGNOSTIC IMAGING ORDERABLE S Final Result * EKG-SCANNED (09/25/2024) Narrative 09/25/2024 Ordered by an unspecified provider. Default Scanning Provider SCAN ORDERS Final Result [...] Every Night PRN, oral, constipation, Starting on Micaela 09/28/24 at 0900 sodium chloride flush 10 mL [...] 0855 (Given - Provider: Elizabeth Abernathy RN) enoxaparin (LOVENOX) syringe 40 mg 40 mg Every 24 hours, subcutaneous, First dose on Wed09/27/24 at 0900, Do not administer within 12 hours of epidural or lumbar puncture. Look-Alike/Sound-Alike Alert 0838 (Given - Provider: Daniel Mao RN) 0915 (Given - Provider: Mc Harrison RN) 0858 (Given - Provider: Elizabeth Abernathy, TORIBIO) folic acid (FOLVITE) tablet 1 mg 1 mg Daily, oral, First dose on Wed09/25/24 at 1830 0839 (Given - Provider: Daniel Mao RN) 0917 (Given - Provider: Mc Harrison RN) 0854 (Given - Provider: Elizabeth Abernathy, TORIBIO) [...] Mary Mazariegos) 0854 (Given - Provider: Elizabeth Abernathy RN)1705 (Given - Provider: Elizabeth Abernathy, TORIBIO) hydroxychloroquine (PLAQUENIL) tablet 200 mg 200 mg Daily, oral, First dose on Wed09/25/24 at 1200 0900 (Due) 0915 (Given - Provider: Mc Harrison, TORIBIO) 0908 (Not Given - Provider: Elizabeth Abernathy RN - Reason: Medication/ Dose Unavailable) ketorolac (TORADOL) injection 15 mg (COMPLETED) 15 mg Every 6 hours scheduled, intravenous, First dose on Wed09/26/24 at 1800, For 3 doses 0519 (Given - Provider: Modesta Hull RN) multivitamin (THERAGRAN) tablet 1 tablet 1 tablet Daily, oral, First dose on Wed09/25/24 at 1830 0839 (Given - Provider: Daniel Mao, TORIBIO) 0915 (Given - Provider: Mc Harrison RN) [...] Mazariegos)2024 (Patch Applied - Provider: Mary Mazariegos) 1744 (Due: Patch Removed - Provider: Automatic Discharge [...] RN) 0917 (Given - Provider: Mc Harrison, RN) 0855 (Given - Provider: Elizabeth Abernathy, TORIBIO) sennosides-docusate sodium (SENOKOT S) 8.6-50 mg tablet [...] 0855 (Given - Provider: Elizabeth Abernathy, TORIBIO) Continuous Medication Order 09/27/2024 09/28/2024 09/29/2024 lactated [...] 24 hours 0519 (Given - Provider: Modesta Hull, TORIBIO) ipratropium-albuteroL (DUO-NEB) 0.5 mg-3 mg(2.5 mg base)/3 mL nebulizer solution 3 mL 3 mL Every 6 hours PRN, nebulization, wheezing, Starting on Wed09/25/24 at 1123, RESPIRATORY THERAPY TREATMENT Protect from Light, What is the respiratory therapy Modality? Small volume Nebulization LORazepam (ATIVAN) tablet 0.5 mg 0.5 mg Every 8 hours PRN, oral, anxiety, Starting on Wed09/25/24 at 1124 2050 (Given - Provider: Gonzalez Andrews RN) 2023 [...] RN)2050 (Given - Provider: Gonzalez Andrews RN) 0752 (Given - Provider: Mc Harrison RN)1449 (Given - Provider: Mc Harrison RN)2351 (Given [...] Look-alike/Sound-alike medication 1009 (Given - Provider: Daniel Mao RN) 1450 (Not Given - Provider: Mc Harrison [...] Every Night PRN, oral, constipation, Starting on Micaela 09/28/24 at 0900 0917 (Hold - Provider: Mc [...] flush documented in this encounter Care Teams Bulb Grower Relationship Specialty Start Date End Date Dario Nugent MD [address] [place] [id number] PCP - General Family Medicine 09/25/24 documented as of this encounter
--- OUTSIDE RECORDS SUMMARY | 2024-09-26 10:50 | XMS_ITS | Encounter Summary ---
Author Organization [employer] ([place], [place], [place], [place]) Address [address] [place] [address] Care Team Providers Care Shore Hand Dredge Or Barge Name Role Phone Dario Nugent MD Primary Care Provider [phone] Reason for Visit * Auth/Cert (Routine) Specialty Diagnoses / Procedures Referred By Contac t Referred To Contact Diagnoses Femur fracture, left (HCC) FRACTURE [facility] Telemetry Unit [address] [place] [address] Phone: tel: fax: [facility] Telemetry Unit [address] [place] [address] Phone: tel: fax: Referral ID Status Reason Start Date Expiration Date Visits Re quested Visits Authorized [id number] 1 1 Encounter Details Date Type Department Care Team (Late st Contact Info) Description 09/26/2024 10:50 AM EDT Anesthesia Event [facility] Surgery Department [address] [place] [address] Yusra Fuller CRNA [address] [place] [address] June Moser Uriel, INFANT AND TODDLER TEACHER [address] [place] [address] Anesthesia Record Procedure Summary Procedure Name Responsible Anesthesiologist Anesthesia Start Time Anesthesia Stop Time LEFT RETROGRADE NAILING OF KNEE. (Left: Knee) Yusra ROSITA Fuller 09/26/24 1050 09/26/24 1241 Events Date Time Event Comment 09/26/2024 1050 An Start Patient identif ied and chart reviewed. 1050 An Start Data Anesthesia mac derrell and monitors checked. 1051 Pre-Induction Eval FDA anest hesia machine pre-use checkout completed. Patient status reassessed prior to start of anesthesia care. 1056 An Induction 1058 An Intubation 1059 Anesthesia Ready 1102 Anesthesia Ready 1233 An Extubation 1233 an stop data 1241 An Stop Meds Name Total dexamethasone (DECADRON) injection 4 mg/ mL 8 mg fentaNYL (SUBLIMAZE) injection 150 mcg glycopyrrolate (ROBINUL) injection 0.4 m g lidocaine (XYLOCAINE) injection 2% 60 mg neostigmine (PROSTIGMINE) 1 mg/mL inject ion 3 mg ondansetron (ZOFRAN) injection vial 4 mg propofol (DIPRIVAN) injection 10 mg/mL b olus 150 mg rocuronium (ZEMURON) 100 mg/10 mL inject ion 40 mg ceFAZolin (ANCEF) IVPB 2 g/50 mL D5W (pr emix) 2 g tranexamic acid in NaCl,iso-os 1,000 mg/ 100 mL (10 mg/mL) IVPB 1,000 mg 1,000 mg tranexamic acid in NaCl,iso-os 1,000 mg/ 100 mL (10 mg/mL) IVPB 1,000 mg 1,000 mg phenylephrine (JUAN-SYNEPHRINE) injection 550 mcg lactated Ringer's infusion 1,071.67 mL * Agents Name O2 N2O Air SEVOFLURANE DESFLURANE * Blood No blood administrations on file. Lines, Drains, and Airways Type Details Placement Removal Wound 09/26/24; 1219; Inci otf; Knee; Left; 6 incisions dressed with xeroform, 4x4, covaderms, PRADEEP wrap 09/26/24 1219 by Shey Sampson RN Urethral Catheter Placement Date: 09/07 02/01; Placement Time: 0200; Existing LDA Placed by: Other hospital; Removal Date: 09/27/24; Removal Time: 0427 09/25/24 0200 by Jed Dumont RN 09/27/24 042 by Modesta Hull RN Peripheral IV Placement Date: 09/08 ; Placement Time: 0950; Size: 20 G; Orientation: Left; Location: Antecubital; Site Prep: Chlorhexidine ; Insertion attempts: 2; Removal Date: 10/03/24; Removal Time: 17409/26/24 0950 by Tomas Horner RN 10/03/24 1746 by Automatic Discharge Provider ETT Placement Date 09/26; Placement Time 1058 (created via procedure documentation); Airway Size 7.5; Airway Cuffed Yes; Removal Date 09/26/24; Removal Time 1233 09/26/24 1058 by June Moser CRNA 09/26/24 1233 by June Moser CRNA documented in this encounter Social History Tobacco Use Types Packs/Day Years [...] your living situation today? I have a [facility] place to live 09/25/2024 Think about the [...] Do you speak a language other than [place] at [facility]? No 09/25/2024 Do you want help [...] on file documented as of this encounter OR Notes * Anesthesia Postprocedure Evaluation - June Moser CRNA - 09/26/2024 12:39 PM EDT Patient: Christian Castorena Procedure Summary Date: 09/26/24 Room / Location: [facility] Anesthesia Start: 1050 Anesthesia Stop: Procedure: LEFT RETROGRADE NAILING OF KNEE. (Left: Knee) Diagnosis: Knee injury (Knee injury [S89.90XA]) Surgeons: Chuy Johnson MD Responsible Provider: Yusra Fuller CRNA Anesthesia Type: general ASA Status: 3 Anesthesia Type: general Vitals Value Taken Time BP 144/64 09/26/24 1237 Temp 99.0 09/26/24 1239 Pulse 103 09/26/24 1238 Resp 17 09/26/24 1238 SpO2 91 % 09/26/24 1238 Vitals shown include unfiled device data. Ht 1.854 m (6' 1 ) Wt 79.4 kg (175 lb) BMI 23.09 kg/m?? Anesthesia Post Evaluation Patient location during evaluation: PACU Patient participation: complete - patient participated Level of consciousness: awake Pain score: 0 Pain management: adequate Multimodal analgesia pain management approach Airway patency: patent Cardiovascular status: stable Respiratory status: nasal cannula and acceptable Hydration status: stable Color: skin color levy baseline Activity: Moves 4 extremities Inotropes/Vasopressors: N/A No notable events documented. June Moser CRNA 09/26/2024 12:39 PM EDT * Anesthesia Procedure Notes - June Moser CRNA - 09/26/2024 11:12 AM EDT Associated Order(s): Intubation Intubation Authorized by: June Moser CRNA Performed by: June Moser CRNA Date/Time: 09/26/2024 10:58 AM Urgency: elective Indications and Patient Condition Indications for airway management: anesthesia and airway protection Spontaneous Ventilation: absent Sedation level: general anesthesia Preoxygenated: yes Patient position: sniffing no Mask difficulty assessment: 2 - vent by mask + OA or adjuvant +/- NMBA no Final Airway Details Final airway type: endotracheal airway Endotracheal tube type: ETT Cuffed: yes Successful intubation technique: direct laryngoscopy Endotracheal tube insertion site: oral Blade: Oanh Blade size: #3 ETT size (mm): 7.5 Cormack-Lehane Classification: grade I - full view of glottis Placement verified by: chest auscultation and capnometry Measured from: lips ETT to lips (cm): 23 Number of attempts at approach: 1 Number of other approaches attempted: 0 * Anesthesia Preprocedure Evaluation - Abner Oh MD - 09/26/2024 10:14 AM EDT Anesthesia Pre Evaluation Mr. Christian Castorena is a 63 y.o. male being evaluated for the following: Date/Time: 09/26/241199 Procedure: LEFT RETROGRADE NAILING OF KNEE. (Left) Location: [facility] Surgeons: Chuy Johnson MD Allergies Allergen Reactions Diphenhydramine Other (See Comments) MAKES ME INCOHERENT AND LOOPY Hydrocodone-Acetaminophen Other (See Comments) It makes me out of my head Tramadol Other (See Comments) Dizziness Past Medical History: Diagnosis Date COPD (chronic obstructive pulmonary disease) (HCC) Lupus (systemic lupus erythematosus) ([facility]) Neuropathy Osteoarthritis Past Surgical History: Procedure Laterality Date REPLACEMENT TOTAL KNEE Right TOTAL KNEE ARTHROPLASTY Left Relevant Problems ANESTHESIA (-) History of anesthesia complications RESPIRATORY SYSTEM (+) Chronic obstructive pulmonary disease (HCC) Clinical information reviewed: Meds NPO Status No data recorded Physical Exam Airway Mallampati: II TM distance: >3 FB Neck ROM: full Cardiovascular Rhythm: regular Rate: normal Dental Comments: Missing teeth; no loose teeth Pulmonary - normal exam Abdominal Anesthesia Plan ASA 3 Planned anesthetic: general Induction: intravenous Postoperative Plan- Postoperative administration of opioids is intended. Informed Consent- Anesthetic plan and risks discussed with patient. Plan discussed with INFANT AND TODDLER TEACHER. documented in this encounter Plan of Treatment Not on file documented as of this encounter Procedures Procedure Name Priority Date/Time Associated Diagnosis Comments ANESTHESIA INTUBATION Routine 09/26/2024 10:58 AM EDT documented in this encounter Results * AN SINGLE LUMEN INTUBATION (09/26/2024 10:58 AM EDT) Narrative June Moser CRNA - 09/26/2024 10:58 AM EDT June Moser CRNA 09/26/2024 11:16 AM Intubation Authorized by: June Moser CRNA Performed by: June Moser CRNA Date/Time: 09/26/2024 10:58 AM Urgency: elective Indications and Patient Condition Indications for airway management: anesthesia and airway protection Spontaneous Ventilation: absent Sedation level: general anesthesia Preoxygenated: yes Patient position: sniffing no Mask difficulty assessment: 2 - vent by mask + OA or adjuvant +/- NMBA no Final Airway Details Final airway type: endotracheal airway Endotracheal tube type: ETT Cuffed: yes Successful intubation technique: direct laryngoscopy Endotracheal tube insertion site: oral Blade: Oanh Blade size: #3 ETT size (mm): 7.5 Cormack-Lehane Classification: grade I - full view of glottis Placement verified by: chest auscultation and capnometry Measured from: lips ETT to lips (cm): 23 Number of attempts at approach: 1 Number of other approaches attempted: 0 June Moser CRNA ANESTHESIA ORDERABLES Final Result documented in this encounter Visit Diagnoses Not on filedocumented in this encounter Administered Medications Inactive Administered Medications - up to 3 most recent administrations Medication Order MAR Action Action Date Dose Rate Site ceFAZolin (ANCEF) IVPB 2 g/50 mL D5W (premix) 2 g Once, intravenous, Administer over 30 Minutes, On Wed09/26/24 at 1100, For 1 dose, Please choose an indication: Surgical Prophylaxis Given 09/26/2024 11:00 AM EDT 2 g dexAMETHasone (DECADRON) injection As needed, intravenous, Starting on Wed09/26/24 at 1101, Anesthesia Intra-op Given 09/26/2024 11:01 AM EDT 8 mg fentaNYL PF (SUBLIMAZE) injection As needed, intravenous, Starting on Wed09/26/24 at 1051, Anesthesia Intra-op Given 09/26/2024 11:56 AM EDT 50 mcg Given 09/26/2024 10:56 AM EDT 50 mcg Given 09/26/2024 10:51 AM EDT 50 mcg glycopyrrolate (ROBINUL) injection As needed, intravenous, Starting on Wed09/26/24 at 1215, Anesthesia Intra-op Given 09/26/2024 12:15 PM EDT 0.4 mg lactated Ringer's infusion 100 mL/hr Continuous, intravenous, Starting on Wed09/25/24 at 1200 New Bag 09/29/2024 12:13 AM EDT 100 mL/hr 100 mL/hr New Bag 09/27/2024 4:25 AM EDT 100 mL/hr 100 mL/hr New Bag 09/26/2024 8:19 PM EDT 100 mL/hr 100 mL/hr lidocaine (XYLOCAINE) injection 2% As needed, intravenous, Starting on Wed09/26/24 at 1056, Anesthesia Intra-op Given 09/26/2024 10:56 AM EDT 60 mg neostigmine methylsulfate (PROSTIGMINE) injection As needed, intravenous, Starting on Wed09/26/24 at 1215, Anesthesia Intra-op Given 09/26/2024 12:15 PM EDT 3 mg ondansetron (ZOFRAN) injection As needed, intravenous, Starting on Wed09/26/24 at 1215, Anesthesia Intra-op Given 09/26/2024 12:15 PM EDT 4 mg phenylephrine (JUAN-SYNEPHRINE) injection As needed, intravenous, Starting on Wed09/26/24 at 1100, Anesthesia Intra-op Given 09/26/2024 11:57 AM EDT 100 mc g Given 09/26/2024 11:39 AM EDT 50 mcg Given 09/26/2024 11:27 AM EDT 100 mcg propofol (DIPRIVAN) injection 10 mg/mL bolus As needed, intravenous, Starting on Wed09/26/24 at 1056, Anesthesia Intra-op Given 09/26/2024 10:56 AM EDT 150 mg rocuronium (ZEMURON) injection As needed, intravenous, Starting on Wed09/26/24 at 1056, Anesthesia Intra-op Given 09/26/2024 10:56 AM EDT 40 mg tranexamic acid in NaCl,iso-os 1,000 mg/100 mL (10 mg/mL) IVPB 1,000 mg 1,000 mg Once, intravenous, On Wed09/26/24 at 1100, For 1 dose Given 09/26/2024 11:08 AM EDT 1,000 mg tranexamic acid in NaCl,iso-os 1,000 mg/100 mL (10 mg/mL) IVPB 1,000 mg 1,000 mg Once, intravenous, On Wed09/26/24 at 1100, For 1 dose Given 09/26/2024 12:12 PM EDT 1,000 mg documented in this encounter Care Teams Shore Hand Dredge Or Barge Relationship Specialty Start Date End Date Dario Nugent MD [address] [place] [address] PCP - General Family Medicine 09/25/24 documented as of this encounter
--- OUTSIDE RECORDS SUMMARY | 2024-09-26 12:00 | XMS_ITS | Encounter Summary ---
Author Organization [employer] ([place], [place], [place], [place]) Address [address] [place] [address] Care Team Providers Care Systems Requirements Planner Name Role Phone Dario Nugent MD Primary Care Provider [phone] Reason for Visit * Auth/Cert (Routine) Specialty Diagnoses / Procedures Referred By Contac t Referred To Contact Diagnoses Femur fracture, left (HCC) FRACTURE [facility] Telemetry Unit [address] [place] [address] Phone: tel: fax: [facility] Telemetry [facility] [address] [place] [address] Phone: tel: fax: Referral ID Status Reason Start Date Expiration Date Visits Re quested Visits Authorized [id number] 1 1 Encounter Details Date Type Department Care Team (Late st Contact Info) Description 09/26/2024 12:00 PM EDT - 09/26/2024 1:37 PM EDT Surgery [facility] Surgery Department [address] [place] [address] Chuy Johnson MD [address] [facility] 2ND [place] [address] LEFT RETROGRADE NAILING OF KNEE. Social History [...] your living situation today? I [facility] a [facility] place to live 09/25/2024 Think about the [...] Do you speak a language other than Fijian at ho me? No 09/25/2024 Do you [...] Admission: 63 y.o. male that presents to [facility] in transition of care from /[facility] emergency department for left distal femur fracture that occurred approximately 2 AM in the morning after tripping on a rug, falling and identifying a snap to his left lower extremity. He presented tot ED and imaging identified left distal femur fracture. Orthopedics was contacted out of the ED and his care was transitioned to [facility]. Currently he reports pain 8 on a [...] B12 level with macrocytosis on CBC [facility] protocol Seizure precautions Benzodiazepine therapy Gabapentin [...] after he leaves here. Previously went to [facility] rehab with a knee replacement [...] where most of his family is in [place] [facility] [place]. His ex- linda Jorge [facility] and he plans on going home with her after he leaves the rehab but for now he like to go to someplace closer to [facility]. Discussed with the home health care case manager she is looking into it. [...] that he is open to going to [facility] rehab and I encouraged him [...] fracture Surgeon: Chuy Johnson MD Assistants: Courtney assistant women's rowing coach Anesthesia: General EBL: 200 mls Complications: None [...] as 2 proximal interlocking screws using perfect cahuilla technique. A locking cap was placed distally. [...] Your Medications These medications were sent to [facility] - [place], [place] - [address], [facility] [address] acetaminophen 500 MG tablet cyanocobalamin 500 MCG [...] Family Medicine Relationship: PCP - General [address] [place] [id number] Next Steps: Follow up in 2 week(s) Instructions: cmp cbc Chuy Johnson MD Specialty: Orthopedic Surgery [address] [facility] 2[address] Floor [facility] [address] Next Steps: Follow up in 10 day(s) [...] discharged per physician order to rehab facility [facility]. Pt IV removed without issues. Ptverbalized understanding of discharge plan and instructions. Pt transported via medical transport. Report called by this RN to Purnima at receiving facility. * Malka Villanueva, ANTONYR/Clara - 09/29/2024 1:43 PM EDT Images from the original note were not included. Inpatient Occupational Therapy Attempt to Treat Patient Name: Christian Castorena Birthday: 1960 Date of Attempt: 09/29/2024 Pt has been up with nursing staff today and would like to rest at this time as he is scheduled for discharge to [facility] this afternoon for further rehab. 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 Number for report is [phone]. [facility] to transport via , AURELIANO requested transport to provide oxygen for trip also. Patient to be in front lobby at 1100, nurse and provider updated. CM updated patient and ex-spouse Quynh. 1253: Transport needed to be delayed per [facility]. Patient now ok to admit. Per Hillary transport will now be with [facility] at 1730 and they will come to the room to get patient. AURELIANO updated patient, ex-spouse, nursing and provider. DC summary faxed to unit at [phone]. Packet placed in chart. * Johnny Stacy [...] able to go home with her to [facility]. His primary care doctor is Dr. Ralph Nugent MD longtime primary care doctor up there. He states he went to [facility] in the past after he got knee replacement. He states in the when he had a knee replacement he [...] B12 level with macrocytosis on CBC [facility] protocol Seizure precautions Benzodiazepine therapy Gabapentin [...] after he leaves here. Previously went to [facility] rehab with a knee replacement [...] where most of his family is in [facility]. His ex- linda Jorge [facility] and he plans on going home with her after he leaves the rehab but for now he like to go to someplace closer to [facility]. Discussed with the home health care case manager she is looking into it. [...] September 28, 2024.Gentleman seen examined with nurse Harvey at the [...] that he is open to going to [facility] rehab and I encouraged him [...] days Expected discharge disposition (home, SNF/Rehab, etc): [facility] then after that home with xwife to [facility] with pt ot HH Additional discharge needs or delays: * Stephie Sorto RN - 09/28/2024 2:17 PM EDT AURELIANO received notification from Hillary with [facility] that precert is approved and patient has been placed on list for SRU bed. AURELIANO sent message to [facility] to check and see if [facility] could take patient tomorrow if [facility] doesn't have a bed open up by then (could have precert transferred). 1546: updated patient that precert approved for [facility] however they do not currently have an open bed. Advised that need to send out additional SNF referrals. Patient requested to have AURELIANO discuss with ex- Quynh. AURELIANO spoke with Quynh and she is agreeable to sending referrals throughout [facility], [facility], and [facility]. Referrals sent via [facility]. AURELIANO spoke with Diane with [facility] and she advised no current male beds [...] Progress Note CM spoke with Hillary with [facility]. Per Hillary, patient's insurance is likely to [...] SNF's for possible back up offer if [facility] can not take. Virgil Glez reviewing. CM updated patient and ex Quynh. MM 09/28/24 Plan: precert started for SRU at [facility], but they do not have open bed [...] 1007 Session Duration 14 minutes CPT CODES: 90910 Gait training x 1 General Visit Type: [...] Score Raw score=8 t-Scale score=28.58 Standard error=4.04 [facility] 0-100%=86.62% MDC=4.72 A raw score of [...] 09/28/24 - 11:56 AM EDT * Malka Villanueva OTR/Clara - 09/28/2024 9:53 AM EDT Images from the original note were not included. Inpatient Occupational Therapy Treatment Note Patient Name: Christian Castorena Date of : 1960 Date of Treatment: 09/28/24 Start Time: 952 Stop Time: 1006 Session Duration: 14 minutes CPT CODES: 22989 ADL/self-care/home management This patient is a 63 y.o. male admitted on 09/25/2024 with Femur fracture, left (HCC) [S72.92XA] Closed fracture of left distal femur (HCC) [S72.402A]. Past Medical History: Diagnosis Date COPD (chronic obstructive pulmonary disease) ([facility]) Lupus (systemic lupus erythematosus) ([facility]) Neuropathy Osteoarthritis Past Surgical History: Procedure Laterality Date IM RODDING,FEMUR Left 09/26/2024 Procedure: LEFT RETROGRADE NAILING OF KNEE.; Surgeon: Chuy Johnson MD; Location: [facility]; Service:Orthopedic Surgery; Laterality: Left; REPLACEMENT TOTAL [...] Quynh, she states that family is requesting [facility] referral. CM discussed with patient and he is agreeable. [facility]erral [facility]. * Johnny Stacy MD - 09/28/2024 [...] able to go home with her to [facility]. His primary care doctor is Dr. Ralph Nugent MD longtime primary care doctor up there. He states he went to [facility] in the past after he got knee replacement. He states in the when he had a knee replacement he [...] B12 level with macrocytosis on CBC [facility] protocol Seizure precautions Benzodiazepine therapy Gabapentin [...] after he leaves here. Previously went to [facility] rehab with a knee replacement [...] where most of his family is in [facility]. His ex- linda Jorge [facility] and he plans on going home with her after he leaves the rehab but for now he like to go to someplace closer to [facility]. Discussed with the home health care case manager she is looking into it. [...] that he is open to going to [facility] rehab and I encouraged him [...] (home, SNF/Rehab, etc): snf preferably close to [facility] versus [facility] then after that home with xwife to [facility] with pt ot HH Additional discharge needs or delays: * Stephie Sorto RN - 09/27/2024 2:53 PM EDT Discharge Plan Progress Note CM spoke with [facility] admissions and was advised they do not have access to [facility] to receive referral, however they do not currently have any male beds open at this time. [facility] is still reviewing referral. CM provided patient with additional options to send more referrals. Patient agreeable to sending referrals to [facility] and referrals sent [facility]. Stephie Sorto RN * Chuy Johnson [...] with patient at bedside. ..Patient/family provided with [facility] approved choice list and Patient choice letter along with Quality data link to access Medicare.gov Care Compare website to review potential post-acute providers. Choice provided to patient/family, and patient preferences received and referral(s) submitted to requested providers. Referral(s) submitted to: [facility]. CM left message for sherwin Snell with [facility] requesting call back and with [facility] (left message and requested call back). 1102: spoke with Diane at [facility] ([phone]) and she confirms receiving referral and will contact CM after reviewing. MM 09/27/24 Plan: femur fracture, PT recs rehab. Referrals sent to [facility] and [facility]. CM left messages at both facilities, awaiting call back. Will need bed offer and precert. May need assist with transport depending on mobility. Pt is current with [facility] for home health. Stephie Sorto, RN * Darin Cohen, PT - 09/27/2024 8:54 AM EDT Images from the original note were not included. Inpatient Physical Therapy Initial Evaluation Patient Name: Christian Castorena Date of : 1960 Date of Evaluation: 09/27/24 In Time 0838 Out Time 0854 Session Duration 16 minutes Time spent for nursing collaboration, chart and systems review, and clinical reasoning. 10 minutes Total Time 26 minutes 04430 Eval mod complex, No charge Rehab each add 15 min x 1 Pt is a 63 y.o. male admitted on 09/25/2024 with Femur fracture, left ([facility]) [S72.92XA] Closed fracture of left distal femur ([facility]) [S72.402A]. Past Medical History: Diagnosis Date COPD (chronic obstructive pulmonary disease) ([facility]) Lupus (systemic lupus erythematosus) ([facility]) Neuropathy Osteoarthritis Past Surgical History: Procedure [...] Electronically signed by Darin Cohen PT - 09/27/24 - 10:32 AM EDT PT Evaluation Completed * Daniel Mao RN - 09/27/2024 8:45 AM EDTSummary: no palpalbe pulse I cannot feel a left pedal pulse. Daniel ROONEY * ANGELO Willard/Clara - 09/27/2024 8:34 AM [...] systems review, and clinical reasoning. CPT CODES: 39100 Eval mod complexity and 03933 ADL/self-care/home management This patient is a 63 y.o. male admitted on 09/25/2024 with Femur fracture, left ([facility]) [S72.92XA] Closed fracture of left distal femur ([facility]) [S72.402A]. Past Medical History: Diagnosis Date COPD (chronic obstructive pulmonary disease) ([facility]) Lupus (systemic lupus erythematosus) ([facility]) Neuropathy Osteoarthritis Past Surgical History: Procedure [...] of Motion Assessment BUE WFL Strength Assessment [facility] WF Coordination/Sensation Coordination: The patient's gross motor coordination [...] body dressing:Maximal Assistance Toileting:Maximal Assistance Outcome Measures [facility] Daily Living Functional Assessment How much [...] (Minimal/Contact guard/Supervision/Setup) 4=None (Modified independent/Independent) The patient's [facility] raw score is 16. The patient currently has 53.32% functional impairment. Clinicians are most likely to recommend inpatient/SNF/half-way care for patients with scores between 6-17, [...] able to go home with her to [facility]. His primary care doctor is Dr. Ralph Nugent MD longtime primary care doctor up there. He states he went to [facility] in the past after he [...] B12 level with macrocytosis on CBC [facility] protocol Seizure precautions Benzodiazepine therapy Gabapentin [...] after he leaves here. Previously went to [facility] rehab with a knee replacement [...] where most of his family is in [facility]. His ex- linda Jorge [facility] and he plans on going home with her after he leaves the rehab but for now he like to go to someplace closer to [facility]. Discussed with the home health care case manager she is looking into it. [...] (home, SNF/Rehab, etc): snf preferably close to [facility] then after that home with xwife to [facility] with pt ot HH Additional discharge needs or delays: * Stephie Sorto RN - 09/26/2024 2:11 PM EDT Discharge Plan Progress Note MDR attended with team. Surgery today for Left hip fracture. CM to follow for PT/OT evals after surgery for final discharge needs. CM received notification that patient is current with [facility]. MM 09/26/24 Plan: pt current with [facility]. Surgery today for hip fracture. Pt prefers [...] able to go home with her to [facility]. His primary care doctor is Dr. Ralph Nugent MD longtime primary care doctor up there. He states he went to [facility] in the past after he [...] 87 BPM ATRIAL RATE (MCT) 87 BPM [place] Interval 122 ms QRS-INTERVAL (MSEC) 80 ms QT Interval 364 ms QTC Interval 438 ms P [place] 30 degrees R AXIS (MCT) 44 degrees T Wave [place] 41 degrees [place] Diagnosis Normal sinus rhythm Normal ECG No [...] B12 level with macrocytosis on CBC [facility] protocol Seizure precautions Benzodiazepine therapy Gabapentin [...] after he leaves here. Previously went to [facility] rehab with a knee replacement [...] etc): snf vs home with xwife to [facility] with pt ot HH Additional [...] 09/26/2024 - 10:27 AM EDT * Purnima Vitale, PT - 09/26/2024 7:30 AM EDTSummary: PT [...] a 63 y.o. male that presents to [facility] in transition of [facility] emergency department for left distal femur fracture that occurred approximately2 AM in the morning after tripping on a rug, falling and identifying a snap to his left lower extremity. He presented to the ED and imaging identified left distal femur fracture. Orthopedics was contacted out of the ED and his care was transitioned to [facility]. Currently he reports pain 8 on a [...] History He is and lives alone in [facility]. He has 3 adult children. He identifies his oldest daughter Meg Amleida as his POA. Review of Systems A [...] home health. Previous home health was with [facility] per patient. He states he has no issues regarding medications or the administration of his medications. His ex-, Quynh De La Cruz, will transport home upon discharge. CM informed patient about being consulted for SNF placement for the patient. He expressed he was not interested in SNF, but would be interested in home health. Patient/family provided with [facility] approved choice list and patient choice letter [...] home health providers in the area of [place]. CM provided patient with a list of home health agencies near and/or in [place]. Patient's address for home health will be [address] [place] [address]. Family is discussing home health agencies and [...] fracture Surgeon: Chuy Johnson MD Assistants: Courtney assistant women's rowing coach Anesthesia: General EBL: 200 mls Complications: None [...] then reamed to an 11.5 mm reamer. Nailwas then placed. This was locked with 4 distal interlocking screws as well as 2 proximal interlocking screws using perfect cahuilla technique. A locking cap was placed distally. The targeting guide wasthen removed. We took final fluoroscopy images in the AP and lateral plane to confirm good placement of hardware and fracture reduction. The incisions were [...] Discharge * Plan of Care - Mary Tylerchfield - 09/28/2024 10:20 PM EDT Problem: Knowledge [...] 1 HOUR Routine 09/26/2024 12:30 PM EDT [place] [facility] FEM SHFT FX W/INSJ IMED IMPLT [...] - 146 meq/L 09/29/2024 5:44 AM EDT [facility] Potassium 3.5 3.5 - 5.1 meq/L 09/29/2024 5:44 AM EDT [facility] Chloride 105 102 - 112 meq/L 09/29/2024 5:44 AM EDT [facility] CO2 22 21 - 32 meq/L 09/29/2024 5:44 AM [facility] Calcium 7.8(L) 8.5 - 10.1 mg/dL 09/29/2024 5:44 AM [facility] Glucose 89 74 - 106 mg/dL 09/29/2024 5:44 AM [facility] BUN 8 7 - 22 mg/dL 09/29/2024 5:44 AM [facility] Creatinine 1.03 0.70 - 1.30 mg/dL 09/29/2024 5:44 AM [facility] BUN/Creatinine 8 8 - 20 09/29/2024 5:44 AM [facility] Albumin 2.1(L) 3.4 - 5.0 g/dL 09/29/2024 5:44 AM [facility] Alkaline Phosphatase 74 27 - 136 U/L 09/29/2024 5:44 AM [facility] ALT 25 12 - 78 U/L 09/29/2024 5:44 AM [facility] AST 29 5 - 37 U/L 09/29/2024 5:44 AM [facility] Total Bilirubin 0.8 0.2 - 1.3 mg/dL 09/29/2024 5:44 AM [facility] Protein, Total 5.9(L) 6.4 - 8.2 gm/dL 09/29/2024 5:44 AM [facility] Anion Gap 10 9 - 20 09/29/2024 5:44 AM [facility] A/G Ratio 0.6(L) 1.1 - 2.5 09/29/2024 5:44 AM [facility] Globulin 3.8 1.5 - 4.5 g/dL 09/29/2024 5:44 AM [facility] Osmolality Calc 264.2 mOsm/kg 5:44 AM [facility] eGFR (mL/min/1.73m2) >60 >=60 mL/min/1.7 3m2 09/29/2024 5:44 AM [facility] Comment:ESTIMATED GFR IS NOT ACCURATE CREATININE CLEARANCE IN PREDICTING GLOMERULAR FILTRATION RATE. ESTIMATED GFR IS NOT APPLICABLE FOR DIALYSIS PATIENTS. Blood Venipuncture / Unknown 09/29/2024 4:19 AM EDT 09/29/2024 4:23 AM EDT us Johnny Stacy MD LAB BLOOD ORDERABLES Final Result [facility] [address] [phone] * (ABNORMAL) CBC with automated diff (09/29/2024 4:19 AM EDT) WBC 4.3 3.9 - 10.0 K/ L 09/29/2024 4:32 AM EDT [facility] RBC 2.43(L) 4.63 - 6.08 M/ L 09/29/2024 4:32 AM EDT [facility] Hemoglobin 9.5(L) 11.2 - 15.7 GM/DL 09/29/2024 4:32 AM EDT [facility] Hematocrit 28.0(L) 40.1 - 51.0 % 09/29/2024 4:32 AM EDT [facility] MCV 115(H) 79 - 95 fL 09/29/2024 4:32 AM EDT [facility] MCH 39.1(H) 25.6 - 32.2 pg 09/29/2024 4:32 AM EDT [facility] MCHC 33.9 32.3 - 36.5 GM/DL 09/29/2024 4:32 AM EDT [facility] RDW 12.7 11.6 - 14.4 % 09/29/2024 4:32 AM EDT [facility] Platelets 88(L) 163 - 369 K/CU MM 09/29/2024 4:32 AM EDT [facility] MPV 10.8 9.4 - 12.4 fL 09/29/2024 4:32 AM EDT [facility] % Neutros 61 34 - 68 % 09/29/2024 4:32 AM EDT [facility] % Lymphs 25 19 - 53 % 09/29/2024 4:32 AM EDT [facility] % Monos 9 4 - 13 % 09/29/2024 4:32 AM EDT [facility] % Eos 4 1 - 7 % 09/29/2024 4:32 AM EDT [facility] % Baso 1 0 - 1 % 09/29/2024 4:32 AM EDT [facility] # Neutros 2.62 1.56 - 6.13 K/ L 09/29/2024 4:32 AM EDT [facility] # Lymphs 1.08(L) 1.18 - 3.74 K/ L 09/29/2024 4:32 AM EDT [facility] # Monos 0.39 0.24 - 0.82 K/ L 09/29/2024 4:32 AM EDT [facility] # Eos 0.15 0.04 - 0.54 K/ L 09/29/2024 4:32 AM EDT [facility] # Baso 0.02 0.01 - 0.08 K/ L 09/29/2024 4:32 AM EDT [facility] Immature Granulocytes-Re lative 0.20 0.00 - 0.60 % 09/29/2024 4:32 AM EDT [facility] # IG 0.01 0.00 - 0.05 K/uL 09/29/2024 4:32 AM EDT [facility] Blood Venipuncture / Unknown 09/29/2024 4:19 AM EDT 09/29/2024 4:23 AM EDT Narrative [facility] - 09/29/2024 4:32 AM EDT [...] Stacy MD LAB BLOOD ORDERABLES Final Result [facility] [address] [address] [phone] * (ABNORMAL) Comprehensive metabolic panel (09/28/2024 3:35 AM EDT) Sodium 134(L) 136 - 146 meq/L 09/28/2024 4:23 AM EDT [facility] Potassium 4.5 3.5 - 5.1 meq/L 09/28/2024 4:23 AM T [facility] Chloride 104 102 - 112 meq/L 09/28/2024 4:23 AM EDT [facility] CO2 23 21 - 32 meq/L 09/28/2024 4:23 AM T [facility] Calcium 8.4(L) 8.5 - 10.1 mg/dL 09/28/2024 4:23 AM T [facility] Glucose 94 74 - 106 mg/dL 09/28/2024 4:23 AM [facility] BUN 14 7 - 22 mg/dL 09/28/2024 4:23 AM T [facility] Creatinine 1.21 0.70 - 1.30 mg/dL 09/28/2024 4:23 AM [facility] BUN/Creatinine 12 8 - 20 09/28/2024 4:23 AM [facility] Albumin 2.4(L) 3.4 - 5.0 g/dL 09/28/2024 4:23 AM [facility] Alkaline Phosphatase 83 27 - 136 U/L 09/28/2024 4:23 AM T [facility] ALT 32 12 - 78 U/L 09/28/2024 4:23 AM [facility] AST 43(H) 5 - 37 U/L 09/28/2024 4:23 AM [facility] Total Bilirubin 0.8 0.2 - 1.3 mg/dL 09/28/2024 4:23 AM [facility] Protein, Total 6.6 6.4 - 8.2 gm/dL 09/28/2024 4:23 AM [facility] Anion Gap 12 9 - 20 09/28/2024 4:23 AM [facility] A/G Ratio 0.6(L) 1.1 - 2.5 09/28/2024 4:23 AM EDT [facility] Globulin 4.2 1.5 - 4.5 g/dL 09/28/2024 4:23 AM EDT [facility] Osmolality Calc 268.5 mOsm/kg 4:23 AM T [facility] eGFR (mL/min/1.73m2) >60 >=60 mL/min/1.7 3m2 09/28/2024 4:23 AM T [facility] Comment:ESTIMATED GFR IS NOT ACCURATE CREATININE CLEARANCE IN PREDICTING GLOMERULAR FILTRATION RATE. ESTIMATED GFR IS NOT APPLICABLE FOR DIALYSIS PATIENTS. Blood Venipuncture / Unknown 09/28/2024 3:35 AM EDT 09/28/2024 3:50 AM EDT us Johnny Stacy MD LAB BLOOD ORDERABLES Final Result [facility] [address] [place] [address] * (ABNORMAL) CBC with automated diff (09/28/2024 3:35 AM EDT) WBC 5.8 3.9 - 10.0 K/ L 09/28/2024 4:07 AM [facility] RBC 2.57(L) 4.63 - 6.08 M/ L 09/28/2024 4:07 AM [facility] Hemoglobin 10.1(L) 11.2 - 15.7 GM/DL 09/28/2024 4:07 AM [facility] Hematocrit 29.6(L) 40.1 - 51.0 % 09/28/2024 4:07 AM [facility] MCV 115(H) 79 - 95 fL 09/28/2024 4:07 AM [facility] MCH 39.3(H) 25.6 - 32.2 pg 09/28/2024 4:07 AM [facility] MCHC 34.1 32.3 - 36.5 GM/DL 09/28/2024 4:07 AM EDT [facility] RDW 12.6 11.6 - 14.4 % 09/28/2024 4:07 AM EDT [facility] Platelets 79(L) 163 - 369 K/CU MM 09/28/2024 4:07 AM [facility] MPV 10.6 9.4 - 12.4 fL 09/28/2024 4:07 AM [facility] % Neutros 69(H) 34 - 68 % 09/28/2024 4:07 AM EDT [facility] % Lymphs 20 19 - 53 % 09/28/2024 4:07 AM EDT [facility] % Monos 9 4 - 13 % 09/28/2024 4:07 AM EDT [facility] % Eos 2 1 - 7 % 09/28/2024 4:07 AM EDT [facility] % Baso 0 0 - 1 % 09/28/2024 4:07 AM [facility] # Neutros 3.96 1.56 - 6.13 K/ L 09/28/2024 4:07 AM EDT [facility] # Lymphs 1.15(L) 1.18 - 3.74 K/ L 09/28/2024 4:07 AM EDT [facility] # Monos 0.50 0.24 - 0.82 K/ L 09/28/2024 4:07 AM EDT [facility] # Eos 0.10 0.04 - 0.54 K/ L 09/28/2024 4:07 AM EDT [facility] # Baso 0.02 0.01 - 0.08 K/ L 09/28/2024 4:07 AM EDT [facility] Immature Granulocytes-Re lative 0.90(H) 0.00 - 0.60 % 09/28/2024 4:07 AM [facility] # IG 0.05 0.00 - 0.05 K/uL 09/28/2024 4:07 AM [facility] Blood Venipuncture / Unknown 09/28/2024 3:35 AM EDT 09/28/2024 3:49 AM EDT Narrative [facility] - 09/28/2024 4:07 AM EDT [...] BLOOD ORDERABLES Final Result Performing Organization Address City/[facility]/ZIP Co de Phone Number [facility] [address] [phone] * Ammonia (09/27/2024 4:22 AM EDT) Ammonia 22 11 - 32 mol/L 09/27/2024 6:00 AM EDT [facility] Blood Venipuncture / Unknown 09/27/2024 4:22 AM EDT 09/27/2024 5:16 AM EDT us Johnny Stacy MD LAB BLOOD ORDERABLES Final Result Performing Organization Address [facility] Co de Phone Number [facility] [address] [phone] * PT/INR, PTT (09/27/2024 4:22 AM EDT) aPTT 28.1 22.0 - 32.0 seconds 09/27/2024 5:38 AM EDT [facility] Protime 10.9 9.0 - 12.0 seconds 09/27/2024 5:38 AM EDT [facility] INR 1.00 0.80 - 1.10 09/27/2024 5:38 AM EDT [facility] Blood Venipuncture / Unknown 09/27/2024 4:22 AM EDT 09/27/2024 5:14 AM EDT us Johnny Stacy MD LAB BLOOD ORDERABLES Final Result Performing Organization Address City/[facility]/ZIP Co de Phone Number [facility] [address] [place] [address], [facility] [phone] * (ABNORMAL) Comprehensive metabolic panel (09/27/2024 4:22 AM EDT) Sodium 132(L) 136 - 146 meq/L 09/27/2024 6:00 AM EDT [facility] Potassium 4.5 3.5 - 5.1 meq/L 09/27/2024 6:00 AM EDT [facility] Chloride 104 102 - 112 meq/L 09/27/2024 6:00 AM EDT [facility] CO2 22 21 - 32 meq/L 09/27/2024 6:00 AM T [facility] Calcium 8.4(L) 8.5 - 10.1 mg/dL 09/27/2024 6:00 AM EDT [facility] Glucose 98 74 - 106 mg/dL 09/27/2024 6:00 AM EDT [facility] BUN 15 7 - 22 mg/dL 09/27/2024 6:00 AM T [facility] Creatinine 1.30 0.70 - 1.30 mg/dL 09/27/2024 6:00 AM T [facility] BUN/Creatinine 12 8 - 20 09/27/2024 6:00 AM T [facility] Albumin 2.3(L) 3.4 - 5.0 g/dL 09/27/2024 6:00 AM EDT [facility] Alkaline Phosphatase 67 27 - 136 U/L 09/27/2024 6:00 AM EDT [facility] ALT 34 12 - 78 U/L 09/27/2024 6:00 AM EDT [facility] AST 41(H) 5 - 37 U/L 09/27/2024 6:00 AM T [facility] Total Bilirubin 1.0 0.2 - 1.3 mg/dL 09/27/2024 6:00 AM EDT [facility] Protein, Total 6.2(L) 6.4 - 8.2 gm/dL 09/27/2024 6:00 AM EDT [facility] Anion Gap 11 9 - 20 09/27/2024 6:00 AM EDT [facility] A/G Ratio 0.6(L) 1.1 - 2.5 09/27/2024 6:00 AM EDT [facility] Globulin 3.9 1.5 - 4.5 g/dL 09/27/2024 6:00 AM EDT [facility] Osmolality Calc 265.3 mOsm/kg 6:00 AM EDT [facility] eGFR (mL/min/1.73m2) >60 >=60 mL/min/1.7 3m2 09/27/2024 6:00 AM EDT [facility] Comment:ESTIMATED GFR IS NOT ACCURATE CREATININE CLEARANCE IN PREDICTING GLOMERULAR FILTRATION RATE. ESTIMATED GFR IS NOT APPLICABLE FOR DIALYSIS PATIENTS. Blood Venipuncture / Unknown 09/27/2024 4:22 AM EDT 09/27/2024 5:14 AM EDT Johnny Stacy MD LAB BLOOD ORDERABLES Final Result Performing Organization Address City/State/[facility] Co de Phone Number [facility] [address] [place] [address] * (ABNORMAL) CBC with automated diff (09/27/2024 4:22 AM EDT) WBC 7.2 3.9 - 10.0 K/ L 09/27/2024 5:42 AM EDT [facility] RBC 2.63(L) 4.63 - 6.08 M/ L 09/27/2024 5:42 AM EDT [facility] Hemoglobin 10.3(L) 11.2 - 15.7 GM/DL 09/27/2024 5:42 AM EDT [facility] Hematocrit 30.9(L) 40.1 - 51.0 % 09/27/2024 5:42 AM T [facility] MCV 118(H) 79 - 95 fL 09/27/2024 5:42 AM EDT [facility] MCH 39.2(H) 25.6 - 32.2 pg 09/27/2024 5:42 AM EDT [facility] MCHC 33.3 32.3 - 36.5 GM/DL 09/27/2024 5:42 AM EDT [facility] RDW 12.7 11.6 - 14.4 % 09/27/2024 5:42 AM EDT [facility] Platelets 78(L) 163 - 369 K/CU MM 09/27/2024 5:42 AM EDT [facility] MPV 11.0 9.4 - 12.4 fL 09/27/2024 5:42 AM EDT [facility] % Neutros 85(H) 34 - 71 % 09/27/2024 5:42 AM EDT [facility] % Lymphs 10(L) 19 - 53 % 09/27/2024 5:42 AM EDT [facility] % Monos 4 4 - 13 % 09/27/2024 5:42 AM EDT [facility] % Eos 1 1 - 7 % 09/27/2024 5:42 AM EDT [facility] % Baso 0 0 - 1 % 09/27/2024 5:42 AM EDT [facility] # Neutros 6.09 1.56 - 6.13 K/ L 09/27/2024 5:42 AM EDT [facility] # Lymphs 0.75(L) 1.18 - 3.74 K/ L 09/27/2024 5:42 AM EDT [facility] # Monos 0.25 0.24 - 0.82 K/ L 09/27/2024 5:42 AM EDT [facility] # Eos 0.04 0.04 - 0.54 K/ L 09/27/2024 5:42 AM EDT [facility] # Baso 0.02 0.01 - 0.08 K/ L 09/27/2024 5:42 AM EDT [facility] Immature Granulocytes-Re lative 0.70(H) 0.00 - 0.60 % 09/27/2024 5:42 AM EDT [facility] # IG 0.05 0.00 - 0.05 K/uL 09/27/2024 5:42 AM EDT [facility] Blood Venipuncture / Unknown 09/27/2024 4:22 AM EDT 09/27/2024 5:14 AM EDT Narrative [facility] - 09/27/2024 5:42 AM EDT [...] Stacy MD LAB BLOOD ORDERABLES Final Result [facility] [address] [phone] * US abdomen limited (09/26/2024 4:30 PM [...] electronically signed by Favian Terrell MD Voice doorshaker technology (Power Scribe) is used for the dictation of this note and sound-alike words might be erroneously placed despite reviewing this note for accuracy. Errors in dictation may reflect use of voice recognition software and not all errors in doorshaker may have been detected prior to signing. [...] electronically signed by Favian Terrell MD Voice doorshaker technology (TheraVidae) is used for the dictation of this note and sound-alike words might be erroneously placed despite reviewing this note for accuracy. Errors in dictation may reflect use of voice recognition software and not all errors in doorshaker may have been detected prior to signing. us Johnny Stacy MD [facility] US ORDERABLES Final Re sult * XR [...] - 146 meq/L 09/26/2024 3:44 AM EDT [facility] Potassium 4.1 3.5 - 5.1 meq/L 09/26/2024 3:44 AM EDT [facility] Chloride 102 102 - 112 meq/L 09/26/2024 3:44 AM EDT [facility] CO2 25 21 - 32 meq/L 09/26/2024 3:44 AM [facility] Anion Gap 10 9 - 20 09/26/2024 3:44 AM T [facility] BUN 9 7 - 22 mg/dL 09/26/2024 3:44 AM T [facility] Creatinine 1.21 0.70 - 1.30 mg/dL 09/26/2024 3:44 AM T [facility] BUN/Creatinine 7(L) 8 - 20 09/26/2024 3:44 AM T [facility] Glucose 84 74 - 106 mg/dL 09/26/2024 3:44 AM [facility] Calcium 8.8 8.5 - 10.1 mg/dL 09/26/2024 3:44 AM [facility] Osmolality Calc 264.3 mOsm/kg 3:44 AM T [facility] eGFR (mL/min/1.73m2) >60 >=60 mL/min/1.7 3m2 09/26/2024 3:44 AM [facility] Comment:eGFR of <60 suggests chronic kidney disease if found over a 3 month period of time. eGFR <15 indicates renal failure. Blood Venipuncture / Unknown 09/26/2024 2:42 AM EDT 09/26/2024 2:45 AM EDT Moose Granda MD LAB BLOOD ORDERABLES Final Resul t [facility] [address] [address] [phone] * (ABNORMAL) CBC with automated diff (09/26/2024 2:42 AM EDT) WBC 5.2 3.9 - 10.0 K/ L 09/26/2024 2:52 AM EDT [facility] RBC 3.36(L) 4.63 - 6.08 M/ L 09/26/2024 2:52 AM EDT [facility] Hemoglobin 13.1 11.2 - 15.7 GM/DL 09/26/2024 2:52 AM EDT [facility] Hematocrit 38.4(L) 40.1 - 51.0 % 09/26/2024 2:52 AM EDT [facility] MCV 114(H) 79 - 95 fL 09/26/2024 2:52 AM EDT [facility] MCH 39.0(H) 25.6 - 32.2 pg 09/26/2024 2:52 AM EDT [facility] MCHC 34.1 32.3 - 36.5 GM/DL 09/26/2024 2:52 AM EDT [facility] RDW 13.0 11.6 - 14.4 % 09/26/2024 2:52 AM EDT [facility] Platelets 106(L) 163 - 369 K/CU MM 09/26/2024 2:52 AM EDT [facility] MPV 11.4 9.4 - 12.4 fL 09/26/2024 2:52 AM EDT [facility] % Neutros 67 34 - 68 % 09/26/2024 2:52 AM EDT [facility] % Lymphs 25 19 - 53 % 09/26/2024 2:52 AM EDT [facility] % Monos 6 4 - 13 % 09/26/2024 2:52 AM EDT [facility] % Eos 1 1 - 7 % 09/26/2024 2:52 AM EDT [facility] % Baso 1 0 - 1 % 09/26/2024 2:52 AM EDT [facility] # Neutros 3.53 1.56 - 6.13 K/ L 09/26/2024 2:52 AM EDT [facility] # Lymphs 1.29 1.18 - 3.74 K/ L 09/26/2024 2:52 AM EDT [facility] # Monos 0.29 0.24 - 0.82 K/ L 09/26/2024 2:52 AM EDT [facility] # Eos 0.07 0.04 - 0.54 K/ L 09/26/2024 2:52 AM EDT [facility] # Baso 0.03 0.01 - 0.08 K/ L 09/26/2024 2:52 AM EDT [facility] Immature Granulocytes-Re lative 0.60 0.00 - 0.60 % 09/26/2024 2:52 AM EDT [facility] # IG 0.03 0.00 - 0.05 K/uL 09/26/2024 2:52 AM EDT [facility] Blood Venipuncture / Unknown 09/26/2024 2:42 AM EDT 09/26/2024 2:45 AM EDT Narrative [facility] - 09/26/2024 2:52 AM EDT [...] MD LAB BLOOD ORDERABLES Final Resul t [facility] [address] [place] [id number] [phone] * Vitamin B12 (09/26/2024 2:42 AM EDT) Vitamin B12 285 193 - 986 pg/mL 09/26/2024 3:44 AM EDT [facility] Blood Venipuncture / Unknown 09/26/2024 2:42 AM EDT 09/26/2024 2:45 AM EDT us Moose Granda MD LAB BLOOD ORDERABLES Final Resul t Performing Organization Address [facility] Co de Phone Number [facility] [address] [phone] * Magnesium (09/26/2024 2:42 AM EDT) Magnesium 1.8 1.5 - 2.4 mg/dL 09/26/2024 3:44 AM EDT [facility] Blood Venipuncture / Unknown 09/26/2024 2:42 AM EDT 09/26/2024 2:45 AM EDT Moose Granda MD LAB BLOOD ORDERABLES Final Resul t Performing Organization Address [facility] de Phone Number [facility] [address] [phone] * ECG 12 lead (09/25/2024 3:12 PM EDT) VENTRICULAR RATE EKG/MIN 87 BPM GE MUSE ATRIAL RATE (MCT) 87 BPM GE MUSE [place] Interval 122 ms GE MUSE QRS-INTERVAL (MSEC) 80 ms GE MUSE QT Interval 364 ms GE MUSE QTC Interval 438 ms GE MUSE P [place] 30 degrees GE MUSE R AXIS (MCT) 44 degrees GE MUSE T Wave [place] 41 degrees GE MUSE [place] Diagnosis Normal sinus rhythm Normal ECG No previous ECGs available Confirmed by Anju DURON SUZANNE ([id number]) on 09/26/2024 10:57:46 AM GE MUSE 09/25/2024 3:12 PM EDT 09/26/2024 10:57 AM EDT Moose Granda MD ECG ORDERABLES Final Result Performing Organization Address [facility] Co de Phone Number GE MUSE * XR [...] is no pneumothorax. Procedure Note Rudy Atkins, DO - 09/25/2024 PORTABLE CHEST; HISTORY: Shortness [...] Look-Alike/Sound-Alike Alert 0838 (Given - Provider: Daniel Mao, TORIBIO) 0915 (Given - Provider: Mc Harrison RN) 0858 (Given - Provider: Elizabeth Abernathy RN) folic acid (FOLVITE) tablet 1 mg 1 mg Daily, oral, First dose on Wed09/25/24 at 1830 0839 (Given - Provider: Daniel Mao RN) 0917 (Given - Provider: Mc Harrison RN) 0854 (Given - Provider: Elizabeth Abernathy RN) gabapentin (NEURONTIN) capsule 300 mg 300 mg 3 times daily, oral, First dose on Wed09/25/24 at 1500 0839 (Given - Provider: Daniel Mao RN)1601 (Given - Provider: Daniel Mao RN)2051 (Given - Provider: Gonzalez Andrews RN) 0917 (Given - Provider: Mc Harrison RN)1450 (Given - Provider: Mc Harrison RN)2023 (Given - Provider: Mary Mazariegos) 0854 (Given - Provider: Elizabeth Abernathy, TORIBIO)1705 (Given - Provider: Elizabeth Abernathy, [...] 1200 0839 (Given - Provider: Daniel Mao RN)2122 (Not Given - Provider: Gonzalez Andrews RN [...] 1200 0425 (New Bag - Provider: Modesta Hull, TORIBIO) 0013 (New Bag - Provider: Mary Mazariegos) [...] 2nd line analgesics (+ adjuvants if ordered) 15 (Given - Provider: Mc Harrison RN)2023 (Given [...] Mc Harrison RN)1449 (Given - Provider: Mc Harrison, TORIBIO)2351 (Given - Provider: Mary Mazariegos) 1250 (Given - Provider: Elizabeth Abernathy RN) oxyCODONE (ROXICODONE) immediate release tablet 5 mg [...] not give) 0855 (Given - Provider: Elizabeth Abernathy RN) polyethylene glycol (GLYCOLAX) packet 17 g 17 [...] flush documented in this encounter Care Teams Systems Requirements Planner Relationship Specialty Start Date End Date Dario Nugent MD [address] [place] [address] PCP - General Family Medicine 09/25/24 documented as of this encounter
--- OUTSIDE RECORDS SUMMARY | 2024-10-13 07:30 | XMS_ITS ---
Author Organization [facility] Address [address] [facility] [address] [place] [id number] Care Team Providers Care Commodities Requirements Analyst Name Role Phone Elif Nugent Primary Care Provider Carlos A Davidson [phone] REASON FOR VISIT [place] E D/C FU Encounters Encounter Location Date Provider Diagnosis [facility] [address] [place] [id number] 10/13/2024 Carlos A Davidson Plan Of Treatment Next Appt Details Provider Name:Denisha Vila y, 11/30/2024 02:40:00 PM, [address], [address], [place], [place], [phone], Provider Name:Elif Zapata er, 01/15/2025 03:45:00 PM, [address], [address], [place], [place], [phone], Progress Notes * ROHAN COWARTDOB:1960 (63 yo M)Acc No.[id number]:10/13/2024 Progress Notes Patient: ROHAN PUGH Provider: Uriel Davidson M.D. :1960 A ge:63 Y S ex:Male Date:10/13/2024 Address:[facility] [address] [id number] Pcp:Elif Nugent Subjective: * Chief Complaints: * 1 . [place] E D/C FU. * Medical History: Objective: * Vitals: Assessment: Plan: * Treatment: * Images: Billing Information: * Visit Code: * Procedure Codes: * Electronic signature of Nila Davidson MD on 11/16/2024 at 08:00 PM EDT Sign off status: Pending * Provider: Uriel Davidson M.D. Date: 0 10/13/2024 Generated for Lui palomo/Angelika/Tiburcio on: 0 11/16/2024 08:00 PM EDT
--- OUTSIDE RECORDS SUMMARY | 2024-10-23 10:30 | XMS_ITS ---
Author Organization [facility] Address [address] [place] [phone] Care Team Providers Care Soybean Grower Name Role Phone Elif Nugent Primary Care [...] Referral Priority Routine REASON FOR VISIT f/u [place] [facility] d/c following broken leg Medications Medication [...] 10/23/2024 Encounters Encounter Location Date Provider Diagnosis [facility] [facility] [address] [id number] 10/23/2024 Elif Nugent Closed fracture of distal [...] Details Follow Up: 3 Weeks, Reason: Provider Name:Denisha Fiona Vila y, 11/30/2024 02:40:00 PM, [address] [facility] [address] [facility], [address], [place], [place], [id number], Provider Name:Elif Zapata er, 01/15/2025 03:45:00 PM, [address] [facility], [address], [place], [place], [phone], Progress Notes * ROHAN COWARTDOB:1960 (63 yo M)Acc No.[id number]:10/23/2024 Progress Notes Patient: Avila FORREST ROHAN Provider: Elif Nugent M.D. :1960 A ge:63 Y S ex:Male Date:10/23/2024 Address:[place] [address], [place], [id number] Subjective: * Chief Complaints: * 1 . f/u [place] [facility] d/c following broken leg. * HPI: H PI: Patient is here today for a Transition of Care Visit. Discharge from the following Facility: admitted to [facility] on 09/25/2024 for Left distal femur fracture, left DISTAL femur periprosthetic (left knee replacement) fracture, with subsequent admission to [facility] , Discharge date: 09/29/2024 from [place] to [facility]. Discharged from [facility]: M onday 10/16/2024. Pt sts he [...] knee replacement surgery, Dr. Diaz, [facility] 09/05/2018, right knee replacement surgery, Dr. Diaz [facility] 12/05/2018, EGD with biopsy 11/2012, Revision of right knee replacement with Explant antibiotic spacer, Dr Stratton 07/16/22, Left periprosthetic femur fracture 09/25/24. * Hospitalization/Major Diagno stic Procedure: b lacked out at home and was taken to [facility] ER and admitted 10/2011, [facility] ER - fall/colitis 06/13/2019, [facility] ER - mikaela 04/2020. * Family History: [...] 100, O2 Sat: 99% on RA, Nurse: [facility], Ht: 71.50. * Examination: G eneral Examination: [...] * Images: Billing Information: * Visit Code: 13932 Office Visit, Est Pt., Level 4. * Procedure Codes: 1111F DSCHR MED/CURENT MED MERGE. G2211 Complex e/m visit add on. G8783 BP SCR PRFRM RCMDD DEFIND SCR INTVL. G8752 MOST RECENT SYSTOLIC BP < 140MM HG. G8754 MOST RECENT DIASTOLIC BP < 90MM HG. * Electronic signature of Elif Nugent MD on 11/16/2024 at 08:01 PM EDT Sign off status: Pending * Provider: Elif Nugent M.D. Date: 0 10/23/2024 Generated for Lui palomo/Angelika/eTransmitting on: 0 11/16/2024 08:01 PM EDT History and Physical Notes * HPI (History of Present Illness) Category Sub-Category Detail Notes Category Not es HPI Patient is here today for a [facility] sition of Care Visit. Discharge from the following Facility: admitted to [facility] on 09/25/2024 for Left distal femur fracture, left DISTAL femur periprosthetic (left knee replacement) fracture, with subsequent admission to [facility] ,Discharge date: 09/29/2024 from [place] to [facility]. Discharged from [facility]: Wednesday10/16/2024. Pt sts he is still [...] es 10/23/2024 Elif Nugent , femur frac jamil
--- OUTSIDE RECORDS SUMMARY | 2024-11-13 11:45 | XMS_ITS ---
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 ; Lupus erythematosus L93.0 ; Other chronic pain G89.29 ; Anxiety F41.9 and Other chronic pain G89.29 Assessments Encounter Date Diagnosis (ICD Code) Assessment Notes Treatment Notes Treatment Clinical Notes Section Notes 11/13/2024 Status post revision of total replacement of right knee (ICD-10 - Z96.651) 11/13/2024 Lupus erythematosus (ICD-10 - L93.0) 11/13/2024 Other chronic pain (ICD-10 - G89.29) 11/13/2024 Anxiety (ICD-10 - F41.9) 11/13/2024 Other chronic pain (ICD-10 - G89.29) Plan Of Treatment Medication Medication Name Sig Start Date Stop Date Notes Gabapentin 600 MG 1 tab(s) orally 3 times a day 11/13/2024 LORazepam 0.5 MG 1 tab(s) orally 3 ti mes a day; Duration: 30 day(s) 11/13/2024 Pending Test Test Name Order Date P-Comprehensive Metabolic Panel (CMP) Next Appt Details Follow Up: 2 Months, Reason: Provider Name:Denisha Vila y, 11/30/2024 02:40:00 PM, [address] [facility] [address], [place], [place], [id number], Provider Name:Elif Zapata er, 01/15/2025 03:45:00 PM, [address] [facility], [address], [place], [place], [address], Progress Notes * ROHAN COWARTDOB:1960 (63 yo M)Acc No.[id number]:11/13/2024 Progress Notes Patient: ROHAN PUGH Provider: Elif Nugent M.D. :1960 A ge:63 Y S ex:Male Date:11/13/2024 Address:[address] [address], [place] Subjective: * Chief Complaints: * 1 . [...] , left knee replacement surgery, Dr. Diaz, [facility] 09/05/2018, right knee replacement surgery, Dr. Diaz [facility] 12/05/2018, EGD with biopsy 11/2012, Revision of right knee replacement with Explant antibiotic spacer, Dr Stratton 07/16/22, Left periprosthetic femur fracture 09/25/24. * Hospitalization/Major Diagno stic Procedure: b lacked out at home and was taken to [facility] ER and admitted 10/2011, [facility] ER - fall/colitis 06/13/2019, [facility] ER - mikaela 04/2020. * Family History: [...] O ther chronic pain - G89.29 ? Plan: * Treatment: Value Reference Range w [...] P-Comprehensive Metabolic Panel (CMP) * Procedure Codes: 8 5025 CBC WITH AUTO DIFF, 44390 VENIPUNCT, ROUTINE* * Follow Up: 2 Months * Images: Billing Information: * Visit Code: 67262 Office Visit, Est Pt., Level 4. * Procedure Codes: 24479 CBC WITH AUTO DIFF. 77802 VENIPUNCT, ROUTINE*. * Electronic signature of Elif Nugent MD on 11/16/2024 at 07:59 PM EDT Sign off status: Pending * Provider: Elif Nugent M.D. Date: 11/13/2024 Generated for Lui palomo/Angelika/Tiburcio on: 0 11/16/2024 07:59 PM EDT History and Physical Notes * [...]
--- OUTSIDE RECORDS SUMMARY | 2024-11-16 20:00 | XMS_ITS | Encounter Summary ---
Author Organization [facility] ([place], [place], [place], [place]) Address [address] [place] [address] Care Team Providers Care Government Service Executive Name Role Phone Dario Nugent MD Primary Care Provider [phone] Reason for Visit * Reason Onset Date Comments Hospital Follow Up 09/29/2024 Encounter Details Date Type Department Care Team (Late st Contact Info) Description 09/29/2024 Telephone [facility] [address] [place] [phone] Dario Nugent MD [address] [place] [address] Hospital Follow Up Social History Tobacco Use [...] Do you speak a language other than Hebrew at [facility]? No 09/25/2024 Do you want help with [...] on filedocumented in this encounter Care Teams Government Service Executive Relationship Specialty Start Date End Date Dario Nugent MD [address] [place] [address] PCP - General Family Medicine 09/25/24 documented as of this encounter
--- OUTSIDE RECORDS SUMMARY | 2024-11-16 20:00 | XMS_ITS | Clinical Summary ---
Author Organization Healthcare Address [address] [place] [address] Care Team Providers Care Physical Therapy Technician Name Role Phone Dario Nugent MD Primary Care Provider [phone] Allergies Active Allergy Reactions Criticality Noted Date [...] EDT Emergency [facility] [address] [place] [address] Discharge Disposition: ED Dismiss - Never Arrived 09/25/2024 Orders Only External Location [address] [place] [address] Bonnie Mello MD 09/25/2024 Orders Only External Location [address] [place] [address] Provider, External from Last 3 [...] [facility]-Zoster Vaccines (2 of 2) 07/31/2021 06/05/2021 [facility]-MSECH-19 Vaccine (4 - 2023- season) 2024 03/05/2021, 08/02/2020, 07/04/2020 [facility]-Influenza Vaccine (#1) 01/08/202502/17, 04/17/2021, 03/15/2020 [facility]-DTaP,Tdap,and Td Vaccine s (2 [...] from Last 3 Months [place] [address] Care Teams Physical Therapy Technician Relationship Specialty Start Date End Date Dario Nugent MD [address] [place] [address] PCP - General 09/20/20
--- OUTSIDE RECORDS SUMMARY | 2024-11-16 20:00 | XMS_ITS | Encounter Summary ---
Author Organization [facility] Address [address] [place] [address] Care Team Providers Care Binding Nicker Name Role Phone Dario Nugent MD Primary Care Provider [phone] Encounter Details Date Type Department Care Team (Late st Contact Info) Description 09/25/2024 - 09/25/2024 6:50 PM EDT Emergency [facility] Department [address] [place] [address] Discharge Disposition: ED Dismiss - Never Arrived [...] documented as of this encounter Care Teams Binding Nicker Relationship Specialty Start Date End Date Dario Nugent MD [address] [place] [address] PCP - General 09/20/20 documented as of this encounter
--- OUTSIDE RECORDS SUMMARY | 2024-11-16 20:00 | XMS_ITS | Clinical Summary ---
Author Organization [employer] ([place], [place], [place], [place]) Address [address] [place] [address] Care Team Providers Care Product Marketing Director Name Role Phone Dario Nugent MD Primary Care Provider [phone] [phone] Allergies Active Allergy Reactions Criticality Noted Date [...] 30 days. 30 tablet 09/29/2024 10/30/19 25 cyanocobalamin (B-12 DOTS) 500 MCG tablet Take 2 tablets (1,000 mcg total) by mouth daily for 30 days. 60 tablet 09/29/2024 10/30/19 25 folic acid (FOLVITE) 1 MG tablet Take 1 tablet (1 mg total) by mouth daily for 30 days. 30 tablet 09/29/2024 10/30/19 25 nicotine (NICODERM CQ) 21 mg/[address] 1 patch on the skin daily for 30 days. 28 patch 09/29/2024 10/30/19 25 thiamine 100 mg tab tablet Take 1 tablet (100 mg total) by mouth daily for 30 days. 30 tablet 09/29/2024 10/30/19 25 Active Problems Problem Noted Date Diagnosed Date Chronic obstructive pulmonary disease 09/26/2024 Lupus (systemic lupus erythematosus) 09/26/2024 Closed fracture of left distal femur 09/26/2024 Femur fracture, left 09/25/2024 Encounters Date Type Department Care Team Description 09/29/2024 Telephone [facility] [address] [place] [address] Dario Nugent MD [facility] Follow Up 09/26/2024 12:00 PM EDT - 09/26/2024 1:37 PM EDT Surgery [facility] Department [address] [place] [address] Chuy Johnson MD LEFT RETROGRADE NAILING OF KNEE. 09/26/2024 10:50 AM EDT Anesthesia Event [facility] [address] [place] [address] Yusra Fuller CRNA McDonald, Leah B, ROSITA 09/25/2024 10:01 AM EDT - 09/29/2024 5:45 PM EDT Hospital Encounter [facility] [address] [place] [address] Moose Yin MD Quisenberry, Thomas, MD Siddiqi, Ismaeel, Femur fracture, left (HCC) (Primary Dx) Discharge Disposition: [facility]dc Facility 09/25/2024 Travel from Last 3 Months [...] your living situation today? [facility] 09/25/2024 Think about [...] Do you speak a language other than Romanian at [facility]? No 09/25/2024 Do you want help with [...] Risk Screening 05/10/2024 Medicare [place]PE ([place] [id number] 09/07/2024 Influenza Vaccine (#1) 2025 , 02/17/2022, 04/17/2021 Tobacco Cessation Counseling and Screening (12+) 09/29/2025 09/29/2024 DTAP/TDAP/TD VACCINES (2 - T d or Tdap) 06/06/2028 06/06/2018 Medical Devices Implanted Type Area Career Coordinator Device Identifier Shelf Expiration Date Model / Serial / Lot Scr Lckng 5.0x60 04.045.060ts - [id number] Implanted:Qty: 1 on 09/26/2024 by Chuy Johnson MD at [facility] IMPLANTS Left: Knee SYNTHES:[employer] [place] 10/07/2028 04.045.060 TS / / [id number] Nail Rfna [id number] 10 Deg Bend 233.041s - [id number] Implanted:Qty: 1 on 09/26/2024 by Chuy Johnson MD at [facility] IMPLANTS Left: Knee SYNTHES:[employer] [place] 06/09/2026 04.233.041 S / / [id number] Scr Lckng 5.0x36 Xl25 Strl 04.045.036ts - [id number] Implanted:Qty: 1 on 09/26/2024 by Chuy Johnson MD at [facility] IMPLANTS Left: Knee SYNTHES:[employer] [place] 02/06/2029 04.045.036 TS / / [id number] End Cap Rfna 0mm Strl 04.233.000s - [id number] Implanted:Qty: 1 on 09/26/2024 by Chuy Johnson MD at [facility] IMPLANTS Left: Knee SYNTHES:[employer] [place] 03/09/2034 04.233.000 S / / [id number] Scr Sg 5.0x66mm 04.045.066ts - [id number] Implanted:Qty: 1 on 09/26/2024 by Chuy Johnson MD at [facility] IMPLANTS Left: Knee SYNTHES:[employer] [place] 04.045.066 TS / / N/A Scr Lckng 5.0x38 Xl25 Strl 04.045.038ts - [id number] Implanted:Qty: 1 on 09/26/2024 by Chuy Johnson MD at [facility] IMPLANTS Left: Knee SYNTHES:[employer]ES [place] 04.045.038 TS / / N/A Scr Sg For Im Nail 5/88/Xl25 04.045.088s - [id number] Implanted:Qty: 1 on 09/26/2024 by Chuy Johnson MD at [facility] IMPLANTS Left: Knee SYNTHES:SYNTHES [place] 04.045.088 S [...] ANESTHESIA INTUBATION Routine 09/26/2024 10:58 AM EDT [place] OPTX FEM SHFT FX W/INSJ IMED IMPLT [...] 10.0 K/ L 09/29/2024 4:32 AM EDT [facility] RBC 2.43(L) 4.63 - 6.08 M/ L 09/29/2024 4:32 AM EDT [facility] Hemoglobin 9.5(L) 11.2 - 15.7 GM/DL 09/29/2024 4:32 AM EDT [facility] Hematocrit 28.0(L) 40.1 - 51.0 % 09/29/2024 4:32 AM EDT [facility] MCV 115(H) 79 - 95 fL 09/29/2024 4:32 AM EDT [facility] MCH 39.1(H) 25.6 - 32.2 pg 09/29/2024 4:32 AM EDT [facility] MCHC 33.9 32.3 - 36.5 GM/DL 09/29/2024 4:32 AM EDT [facility] RDW 12.7 11.6 - 14.4 % 09/29/2024 4:32 AM EDT [facility] Platelets 88(L) 163 - 369 K/CU MM 09/29/2024 4:32 AM EDT [facility] MPV 10.8 9.4 - 12.4 fL 09/29/2024 4:32 AM EDT [facility] % Neutros 61 34 - 68 % 09/29/2024 4:32 AM EDT [facility] % Lymphs 25 19 - 53 % 09/29/2024 4:32 AM EDT [facility] % Monos 9 4 - 13 % 09/29/2024 4:32 AM EDT [facility] % Eos 4 1 - 7 % 09/29/2024 4:32 AM EDT [facility] % Baso 1 0 - 1 % 09/29/2024 4:32 AM EDT [facility] # Neutros 2.62 1.56 - 6.13 K/ L 09/29/2024 4:32 AM EDT [facility] # Lymphs 1.08(L) 1.18 - 3.74 K/ L 09/29/2024 4:32 AM EDT [facility] # Monos 0.39 0.24 - 0.82 K/ L 09/29/2024 4:32 AM EDT [facility] # Eos 0.15 0.04 - 0.54 K/ L 09/29/2024 4:32 AM EDT [facility] # Baso 0.02 0.01 - 0.08 K/ L 09/29/2024 4:32 AM EDT [facility] Immature Granulocytes-Re lative 0.20 0.00 - 0.60 % 09/29/2024 4:32 AM EDT [facility] # IG 0.01 0.00 - 0.05 K/uL 09/29/2024 4:32 AM EDT [facility] Blood Venipuncture / Unknown 09/29/2024 4:19 AM EDT 09/29/2024 4:23 AM EDT Narrative [facility] - 09/29/2024 4:32 AM EDT [...] Stacy MD LAB BLOOD ORDERABLES Final Result [facility] [address] [phone] * (ABNORMAL) Comprehensive metabolic panel (09/29/2024 4:19 AM EDT) Only the most recent of3 resultswithin the time period is included. Sodium 133(L) 136 - 146 meq/L 09/29/2024 5:44 AM EDT [facility] Potassium 3.5 3.5 - 5.1 meq/L 09/29/2024 5:44 AM EDT [facility] Chloride 105 102 - 112 meq/L 09/29/2024 5:44 AM [facility] CO2 22 21 - 32 meq/L 09/29/2024 5:44 AM [facility] Calcium 7.8(L) 8.5 - 10.1 mg/dL 09/29/2024 5:44 AM [facility] Glucose 89 74 - 106 mg/dL 09/29/2024 5:44 AM [facility] BUN 8 7 - 22 mg/dL 09/29/2024 5:44 AM [facility] Creatinine 1.03 0.70 - 1.30 mg/dL 09/29/2024 5:44 AM [facility] BUN/Creatinine 8 8 - 20 09/29/2024 5:44 AM [facility] Albumin 2.1(L) 3.4 - 5.0 g/dL 09/29/2024 5:44 AM [facility] Alkaline Phosphatase 74 27 - 136 U/L 09/29/2024 5:44 AM [facility] ALT 25 12 - 78 U/L 09/29/2024 5:44 AM [facility] AST 29 5 - 37 U/L 09/29/2024 5:44 AM [facility] Total Bilirubin 0.8 0.2 - 1.3 mg/dL 09/29/2024 5:44 AM [facility] Protein, Total 5.9(L) 6.4 - 8.2 gm/dL 09/29/2024 5:44 AM [facility] Anion Gap 10 9 - 20 09/29/2024 5:44 AM [facility] A/G Ratio 0.6(L) 1.1 - 2.5 09/29/2024 5:44 AM [facility] Globulin 3.8 1.5 - 4.5 g/dL 09/29/2024 5:44 AM [facility] Osmolality Calc 264.2 mOsm/kg 5:44 AM [facility] eGFR (mL/min/1.73m2) >60 >=60 mL/min/1.7 3m2 09/29/2024 5:44 AM [facility] Comment:ESTIMATED GFR IS NOT ACCURATE CREATININE CLEARANCE IN PREDICTING GLOMERULAR FILTRATION RATE. ESTIMATED GFR IS NOT APPLICABLE FOR DIALYSIS PATIENTS. Blood Venipuncture / Unknown 09/29/2024 4:19 AM EDT 09/29/2024 4:23 AM EDT us Johnny Stacy MD LAB BLOOD ORDERABLES Final Result Performing Organization Address [facility]/ZIP Co de Phone Number [facility] [address] [phone] * PT/INR, PTT (09/27/2024 4:22 AM EDT) aPTT 28.1 22.0 - 32.0 seconds 09/27/2024 5:38 AM EDT [facility] Protime 10.9 9.0 - 12.0 seconds 09/27/2024 5:38 AM EDT [facility] INR 1.00 0.80 - 1.10 09/27/2024 5:38 AM EDT [facility] Blood Venipuncture / Unknown 09/27/2024 4:22 AM EDT 09/27/2024 5:14 AM EDT us Johnny Stacy MD LAB BLOOD ORDERABLES Final Result Performing Organization Address [facility] Co de Phone Number [facility] [address] [phone] * Ammonia (09/27/2024 4:22 AM EDT) Ammonia 22 11 - 32 mol/L 09/27/2024 6:00 AM EDT [facility] Blood Venipuncture / Unknown 09/27/2024 4:22 AM EDT 09/27/2024 5:16 AM EDT us Johnny Stacy MD LAB BLOOD ORDERABLES Final Result Performing Organization Address City/[facility]/ZIP Co de Phone Number [facility] [address] [place] [address], [place] [phone] * US abdomen limited (09/26/2024 4:30 PM [...] electronically signed by Favian Terrell MD Voice cement gun operator technology (Pocket [employer]) is used for the dictation of this note and sound-alike words might be erroneously placed despite reviewing this note for accuracy. Errors in dictation may reflect use of voice recognition software and not all errors in cement gun operator may have been detected prior to signing. [...] electronically signed by Favian Terrell MD Voice cement gun operator technology ([employer] Appare[employer]) is used for the dictation of this note and sound-alike words might be erroneously placed despite reviewing this note for accuracy. Errors in dictation may reflect use of voice recognition software and not all errors in cement gun operator may have been detected prior to signing. Jonhny Stacy MD [facility] [place] ORDERABLES Final Re sult * XR [...] by Jessica Pierre PA-C. Chuy Johnson MD [facility] DIAGNOSTIC [facility]AGING ORDERABLE S Final Result * [...] by David Ledezma PA-C. Chuy Johnson MD [facility] FLUOROSCOPY ORDERABLES Final Result * AN SINGLE LUMEN INTUBATION (09/26/2024 10:58 AM EDT) Narrative June Moser CRNA - 09/26/2024 10:58 AM EDT Juen Moser CRNA 09/26/2024 11:16 AM Intubation Authorized [...] of other approaches attempted: 0 June Moser AXLE INSPECTOR ANESTHESIA ORDERABLES Final Result * Magnesium (09/26/2024 2:42 AM EDT) Magnesium 1.8 1.5 - 2.4 mg/dL 09/26/2024 3:44 AM EDT [facility] Blood Venipuncture / Unknown 09/26/2024 2:42 AM EDT 09/26/2024 2:45 AM EDT Moose Granda MD LAB BLOOD ORDERABLES Final Resul t Performing Organization Address [facility] de Phone Number [facility] [address] [phone] * Vitamin B12 (09/26/2024 2:42 AM EDT) Vitamin B12 285 193 - 986 pg/mL 09/26/2024 3:44 AM EDT [facility] Blood Venipuncture / Unknown 09/26/2024 2:42 AM EDT 09/26/2024 2:45 AM EDT Moose Granda MD LAB BLOOD ORDERABLES Final Resul t Performing Organization Address [facility] de Phone Number [facility] [address] [phone] * (ABNORMAL) Basic Metabolic Panel (09/26/2024 2:42 AM EDT) Sodium 133(L) 136 - 146 meq/L 09/26/2024 3:44 AM EDT [facility] Potassium 4.1 3.5 - 5.1 meq/L 09/26/2024 3:44 AM EDT [facility] Chloride 102 102 - 112 meq/L 09/26/2024 3:44 AM EDT [facility] CO2 25 21 - 32 meq/L 09/26/2024 3:44 AM EDT [facility] Anion Gap 10 9 - 20 09/26/2024 3:44 AM EDT [facility] BUN 9 7 - 22 mg/dL 09/26/2024 3:44 AM EDT [facility] Creatinine 1.21 0.70 - 1.30 mg/dL 09/26/2024 3:44 AM EDT [facility] BUN/Creatinine 7(L) 8 - 20 09/26/2024 3:44 AM EDT [facility] Glucose 84 74 - 106 mg/dL 09/26/2024 3:44 AM EDT [facility] Calcium 8.8 8.5 - 10.1 mg/dL 09/26/2024 3:44 AM EDT [facility] Osmolality Calc 264.3 mOsm/kg 3:44 AM EDT [facility] eGFR (mL/min/1.73m2) >60 >=60 mL/min/1.7 3m2 09/26/2024 3:44 AM EDT [facility] Comment:eGFR of <60 suggests chronic kidney disease if found over a 3 month period of time. eGFR <15 indicates renal failure. Blood Venipuncture / Unknown 09/26/2024 2:42 AM EDT 09/26/2024 2:45 AM EDT Moose Granda MD LAB BLOOD ORDERABLES Final Resul t [facility] [address] [employer] [address] [phone] * ECG 12 lead (09/25/2024 3:12 PM EDT) VENTRICULAR RATE EKG/MIN 87 BPM GE MUSE ATRIAL RATE (MCT) 87 BPM GE MUSE [place] Interval 122 ms GE MUSE QRS-INTERVAL (MSEC) 80 ms GE MUSE QT Interval 364 ms GE MUSE QTC Interval 438 ms GE MUSE P [place] 30 degrees GE MUSE R AXIS (MCT) 44 degrees GE MUSE T Wave [place] 41 degrees GE MUSE [place] Diagnosis Normal sinus rhythm Normal ECG No previous ECGs available Confirmed by Anju DURON SUZANNE ([id number]) on 09/26/2024 10:57:46 AM GE MUSE 09/25/2024 3:12 PM EDT 09/26/2024 10:57 AM EDT Result [facility] Moose Granda MD ECG ORDERABLES Final Result [...] Final Result from Last 3 Months Insurance [employer] MEDICARE PPO Advance Directives For more information, please contact: [phone] * Full Code (Latest Code Status on File) Date Activated Date Inactivated Comments 09/25/2024 10:26 AM 09/29/2024 6:46 PM Healthcare Agents on File Name Relationship Healthcare Agent [facility] Communication Quynh De La Cruz Other Healthcare Decision-Maker Care Teams Product Marketing Director Relationship Specialty Start Date End Date Dario Nugent MD [address] [place] [address] PCP - General Family Medicine 09/25/24
--- OUTSIDE RECORDS SUMMARY | 2024-11-16 20:00 | XMS_ITS | Referral Summary ---
Author Organization [employer] ([place], [place], [place], [place]) Address [address] [place] [address] Care Team Providers Care Utility Engineer Name Role Phone Dario Nugent MD Primary Care Provider [phone] [phone] Encounters Date Type Department Care Team Description 09/29/2024 Telephone [facility] [address] [place] [address] Dario Nugent MD Hospital Follow Up 09/25/2024 10:01 AM EDT - 09/29/2024 5:45 PM EDT Hospital Encounter [facility] [address] [place] [address] Moose Granda MD Quisenberry, Thomas, MD Siddiqi, Timmynypatricia, DO Femur fracture, left (HCC) (Primary Dx) Discharge Disposition: [facility] 09/26/2024 10:50 AM EDT Anesthesia Event [facility] [address] [place] [address] Yusra Fuller CRNA McDonald, Leah B, CRNA 09/26/2024 12:00 PM EDT - 09/26/2024 1:37 PM EDT Surgery [facility] [address] [place] [address] Chuy Johnson MD LEFT RETROGRADE NAILING OF [...] your living situation today? I have a [facility] place to live 09/25/2024 Think about [...] Do you speak a language other than [place] at [facility]? No 09/25/2024 Do you want help [...] on file Medical Devices Implanted Type Area Communications Designer Device Identifier Shelf Expiration Date Model / Serial / Lot Scr Lckng 5.0x60 04.045.060ts - [id number] Implanted:Qty: 1 on 09/26/2024 by Chuy Johnson MD at [facility] IMPLANTS Left: Knee SYNTHES:[employer] [place] 10/07/2028 04.045.060 TS / / [id number] Nail Rfna [id number] 10 Deg Bend 04.233.041s - [id number] Implanted:Qty: 1 on 09/26/2024 by Chuy Johnson MD at [facility] IMPLANTS Left: Knee SYNTHES:[employer]ES [place] 06/09/2026 04.233.041 S / / [id number] Scr Lckng 5.0x36 Xl25 Strl 04.045.036ts - [id number] Implanted:Qty: 1 on 09/26/2024 by Chuy Johnson MD at [facility] IMPLANTS Left: Knee SYNTHES:[employer] [place] 02/06/2029 04.045.036 TS / / [id number] End Cap Rfna 0mm Strl 04.233.000s - [id number] Implanted:Qty: 1 on 09/26/2024 by Chuy Johnson MD at [facility] IMPLANTS Left: Knee SYNTHES:[employer]ES [place] 03/09/2034 04.233.000 S / / [id number] Scr Sg 5.0x66mm 04.045.066ts - [id number] Implanted:Qty: 1 on 09/26/2024 by Chuy Johnson MD at [facility] IMPLANTS Left: Knee SYNTHES:SY[employer]ES [place] 04.045.066 TS / / N/A Scr Lckng 5.0x38 Xl25 Strl 04.045.038ts - [id number] Implanted:Qty: 1 on 09/26/2024 by Chuy Johnson MD at [facility] IMPLANTS Left: Knee SYNTHES:SY[employer]ES [place] 04.045.038 TS / / N/A Scr Sg For Im Nail 5/88/Xl25 04.045.088s - [id number] Implanted:Qty: 1 on 09/26/2024 by Chuy Johnson MD at [facility] IMPLANTS Left: Knee SYNTHES:[employer] 04.045.088 S / / N/A Procedures Procedure [...] ANESTHESIA INTUBATION Routine 09/26/2024 10:58 AM EDT [place] OPTX FEM SHFT FX W/INSJ [...] [facility] [address] [place] [address], [facility] [phone] * (ABNORMAL) Comprehensive metabolic panel (09/29/2024 4:19 [...] 9 - 20 09/29/2024 5:44 AM EDT [facility] A/G Ratio 0.6(L) 1.1 - 2.5 09/29/2024 5:44 AM EDT [facility] Globulin 3.8 1.5 - 4.5 g/dL 09/29/2024 5:44 AM EDT [facility] Osmolality Calc 264.2 mOsm/kg 5:44 AM EDT [facility] eGFR (mL/min/1.73m2) >60 >=60 mL/min/1.7 3m2 09/29/2024 5:44 AM EDT [facility] Comment:ESTIMATED GFR IS NOT ACCURATE CREATININE CLEARANCE IN PREDICTING GLOMERULAR FILTRATION RATE. ESTIMATED GFR IS NOT APPLICABLE FOR DIALYSIS PATIENTS. Blood Venipuncture / Unknown 09/29/2024 4:19 AM EDT 09/29/2024 4:23 AM EDT us Johnny Stacy MD LAB BLOOD ORDERABLES Final Result [facility] [address] [phone] * PT/INR, PTT (09/27/2024 4:22 AM EDT) [...] [facility] [address] [place] [address], [facility] [phone] * Ammonia (09/27/2024 4:22 AM EDT) Ammonia 22 11 - 32 mol/L 09/27/2024 6:00 AM EDT [facility] Blood Venipuncture / Unknown 09/27/2024 4:22 AM EDT 09/27/2024 5:16 AM EDT us Johnny Stacy MD LAB BLOOD ORDERABLES Final Result [facility] [address] [place] [address], [facility] [phone] * US abdomen limited (09/26/2024 4:30 PM [...] electronically signed by Favian Terrell MD Voice chief analytics officer technology (Cris[employer] D[employer]en Pixelsibe) is used for the dictation of this note and sound-alike words might be erroneously placed despite reviewing this note for accuracy. Errors in dictation may reflect use of voice recognition software and not all errors in chief analytics officer may have been detected prior to signing. [...] electronically signed by Favian Terrell MD Voice chief analytics officer technology (CoderBuddye) is used for the dictation of this note and sound-alike words might be erroneously placed despite reviewing this note for accuracy. Errors in dictation may reflect use of voice recognition software and not all errors in chief analytics officer may have been detected prior to signing. us Johnny Stacy MD [facility] US ORDERABLES Final Re sult * [...] 1 Number of other approaches attempted: 0 Result [facility] June Moser CRNA ANESTHESIA ORDERABLES Final Result * Magnesium (09/26/2024 2:42 AM EDT) Magnesium 1.8 1.5 - 2.4 mg/dL 09/26/2024 3:44 AM EDT [facility] Blood Venipuncture / Unknown 09/26/2024 2:42 AM EDT 09/26/2024 2:45 AM EDT Result [facility] Moose Granda MD LAB BLOOD ORDERABLES Final Resul t [facility] [address] [employer] [address] [phone] * Vitamin B12 (09/26/2024 2:42 AM EDT) Vitamin B12 285 193 - 986 pg/mL 09/26/2024 3:44 AM EDT [facility] Blood Venipuncture / Unknown 09/26/2024 2:42 AM EDT 09/26/2024 2:45 AM EDT Moose Granda MD LAB BLOOD ORDERABLES Final Resul t [facility] [address] [employer] [address] [phone] * (ABNORMAL) Basic Metabolic Panel (09/26/2024 2:42 [...] ORDERABLES Final Resul t Performing Organization Address [facility] Co de Phone Number [facility] [address] [phone] * ECG 12 lead (09/25/2024 3:12 PM EDT) VENTRICULAR RATE EKG/MIN 87 BPM GE MUSE ATRIAL RATE (MCT) 87 BPM GE MUSE [place] Interval 122 ms GE MUSE QRS-INTERVAL (MSEC) 80 ms GE MUSE QT Interval 364 ms GE MUSE QTC Interval 438 ms GE MUSE P [place] 30 degrees GE MUSE R AXIS (MCT) 44 degrees GE MUSE T Wave [place] 41 degrees GE MUSE [place] Diagnosis Normal sinus rhythm Normal ECG No previous ECGs available Confirmed by Anju DURON SUZANNE ([id number]) on 09/26/2024 10:57:46 AM GE MUSE 09/25/2024 3:12 PM EDT 09/26/2024 10:57 AM EDT Moose Granda MD ECG ORDERABLES Final Result Performing Organization Address [facility] de Phone Number GE MUSE * XR [...] Advance Directives For more information, please contact: [phone] * Full Code (Latest Code Status on File) Date Activated Date Inactivated Comments 09/25/2024 10:26 AM 09/29/2024 6:46 PM Healthcare Agents on File Name Relationship Healthcare Agent [facility] Communication Quynh De La Cruz Other Healthcare Decision-Maker Care Teams Utility Engineer Relationship Specialty Start Date End Date Dario Nugent MD [address] [place] [address] PCP - General Family Medicine 09/25/24
--- OUTSIDE RECORDS SUMMARY | 2024-11-16 20:00 | XMS_ITS | Clinical Summary ---
Author Organization [facility] Address [address] [place] [address] Phone Care Team Providers Care Adoption Coordinator Name Role Phone Immanuel ROONEY, Florina Garza Unavailable Conditions or Problems Problem Name Problem Code Onset Date Status Entry Date Provider Comment Standard Description Annotate Adverse drug reaction 44505696 (SNOMED CT) 09/29 Active 09/29 Dipesh Walker MD Adverse reaction to drug Eosinophilia , unspecified 867996452 (SNOMED CT) 09/29 Active 09/29 Dipesh Walker MD Eosinophil count above reference range Health advice, education, or counseling 056803575 (SNOMED CT) 08/04 Active 08/04 Ketan Rucker Procedure carried out on subject Thrombocytop enia 133686233 (SNOMED CT) 06/17 Active 06/17 Dipesh Walker MD Thrombocytopeni c disorder Leukopenia 70327065 (SNOMED CT) 06/17 Active 06/17 Dipesh Walker MD Leukopenia Hyperpigment ation of skin 30826405 (SNOMED CT) 06/17 Active 06/17 Dipesh Walker MD Hyperpigmentati on of skin Discoid lupus 434463835 (SNOMED CT) 01/21 Active 01/21 Ketan Rucker Discoid lupus erythematosus Hereditary or idiopathic neuropathy 231763498 (SNOMED CT) 09/18 Active 09/18 Ele Romano Neuropathy COPD 53000236 (SNOMED CT) 09/18 Active 09/18 Ele Romano Chronic obstructive pulmonary disease Smoking cessation counseling 930928672 (SNOMED CT) 05/21 Resolved 05/21 Ele Juan Antonio Procedure carried out on subject Adverse drug reaction 75611999 (SNOMED CT) 08/06 Resolved 08/06 Ele Juan Antonio Adverse reaction to drug Knee, right, subsequent encounter, infection/in flammatory reaction due to internal joint prosthesis T84.53xD (ICD-10-CM ) 05/19 Active 05/19 Ele Juan Antonio Infection and inflammatory reaction due to internal right knee prosthesis, subsequent encounter Myositis 36864564 (SNOMED CT) 08/06 Resolved 08/06 Ele Juan Antonio Myositis Nicotine dependence, cigarettes F17.210 (ICD-10-CM ) 05/21 Active 05/21 Ele Juan Antonio Nicotine dependence, cigarettes, uncomplicated Staphylococc al septic arthritis, right knee (identify type of staph) M00.061 (ICD-10-CM ) 06/25 Active 06/25 Ele Juan Antonio Staphylococcal arthritis, right knee Adverse drug reaction 71938199 (SNOMED CT) 08/06 Removed 08/06 Dipesh Walker MD Adverse reaction to drug Myositis 94357413 (SNOMED CT) 08/06 Removed 08/06 Dipesh Walker MD Myositis Staphylococc al infection 56018526 (SNOMED CT) 06/25 Active 06/25 Dipesh Walker MD Staphylococcal infectious disease Septic arthritis, right knee 53922417 (SNOMED CT) 06/25 Inactive 06/25 Dipesh Walker MD Bacterial arthritis Tobacco abuse 06075075 (SNOMED CT) 05/21 Inactive 05/21 Dipesh Walker MD Tobacco dependence syndrome Smoking cessation counseling 299109413 (SNOMED CT) 05/21 Removed 05/21 Dipesh Walker MD Procedure carried out on subject Effusion, right knee M25.461 (ICD-10-CM ) 05/19 Active 05/19 Ele Juan Antonio Effusion, right knee Benign Essential Hypertension 05442166 (SNOMED CT) 05/19 Active 05/19 Ele Romano Benign hypertension Knee, right, initial encounter(s) , infection/in flammatory reaction due to internal joint prosthesis T84.53xA (ICD-10-CM ) 05/19 Inactive 05/19 Ele Romano Infection and inflammatory reaction due to internal right knee prosthesis, initial encounter Cellulitis of RLE 498333254 (SNOMED CT) 05/19 Active 05/19 Ele Romano Cellulitis of lower limb Medications Medication Instructions Start Date Stop Date Generic Name NDC Provider HYDROXYCHLOROQUINE SULFATE 200 MG TABS 1 tab oral twice daily 06/17 hydroxychloroquine 58093141847 Ketan Rucker MINOCYCLINE HCL 100 MG CAPS Take 1 capsule by mouth twice a day 01/21 minocycline 18355575385 Dipesh Walker MD DOXYCYCLINE HYCLATE 100 MG CAPS Take 1 capsule by mouth twice a day 09/24 doxycycline hyclate 23818926747 Dipesh Walker MD ASPIRIN EC 81 MG TBEC 1q12h aspirin 26008540168 [facility] DOXYCYCLINE MONOHYDRATE 100 MG CAPS 1bid doxycycline monohydrate 16635259793 Braden Bennett FOLIC ACID 1 MG TABS 1qd folic acid 68253225548 [facility] MELOXICAM 15 MG TABS 1qd,wm meloxicam 12405795546 [facility] ONDANSETRON HCL 4 MG TABS 1q6h,prn ondansetron hcl 70621656024 [facility] OXYCODONE HCL 5 MG TABS 1q4h,prn oxycodone 83678954571 [facility] PANTOPRAZOLE SODIUM 40 MG TBEC 1am pantoprazole 29931168468 [facility] TAMSULOSIN HCL 0.4 MG CAPS 1hs tamsulosin 71061576781 Braden Bennett TRAMADOL HCL 50 MG TABS 1q8h,prn tramadol 22397103814 Braden Linkenship VANCOMYCIN HCL IN NACL 1-0.9 GM/250ML-% SOLN Vancomycin 1.5GM IV Q24hrs at 9amStat labs prior to appt (ensure his appt and timing of dos coincide) 08/27 vancomycin in 0.9 % sodium chl 35855160723 Jennyfer Beasley VANCOMYCIN HCL IN NACL 1-0.9 GM/250ML-% SOLN Vancomycin 1.5GM IV Q24hrs at 9amStat labs prior to appt (ensure his appt and timing of dos coincide) 08/27 vancomycin in 0.9 % sodium chl 90437178990 Ileana Moon VANCOMYCIN HCL IN NACL 1-0.9 GM/250ML-% SOLN Vancomycin 1GM IV K18Myzz labs prior to appt (ensure his appt and timing of dos coincide) 08/11 vancomycin in 0.9 % sodium chl 77797292775 Elizabeth Romero RN LEVOFLOXACIN 500 MG TABS once a day levofloxacin 96572602037 Ileana Vasquezo r Tylenol unspecified unspecified 500 mg PRN acetaminophen 31218880102 Ileana Mi nor FOLIC ACID 0.8 MG CAPS once a day 1 mg folic acid 10156792067 Ileana Minor THIAMINE HCL 100 MG TABS 1 tab oral daily thiamine hcl (vitamin b1) 83489856163 Ketan Rucker FUROSEMIDE 40 MG TABS 1 tab oral daily furosemide 97887807020 Ketan Rucker ALBUTEROL SULFATE HFA 108 (90 Base) MCG/ACT AERS 2 puff inhale qid prn albuterol sulfate 17164283977 Ketan Rucker IBUPROFEN 800 MG TABS 1 tab oral 3 times daily ibuprofen 41868236362 Ketan Rucker PERIDEX 0.12 % SOLN 10ml oral 2 times a day chlorhexidine gluconate 58863575567 Ketan Rucker NIFEDIPINE ER 30 MG [id number] 1 tab oral daily nifedipine 87230539042 Ketan Rucker gabapentin 600 mg tablet extended release 24 hr 1 tab oral 3 times daily gabapentin Ketan Rucker HYDROXYCHLOROQUINE SULFATE 200 MG TABS 1 tab oral twice daily 11/07 hydroxychloroquine 01440532345 Ketan Rucker LORAZEPAM 0.5 MG TABS 1 tab oral 3 times daily lorazepam 87356058879 Ketan Rucker OMEPRAZOLE 20 MG CPDR 1 cap orally once daily omeprazole 80696866807 Ketan Rucker Medications Administered No information available. Allergies, Adverse Reactions, Alerts Allergy Name Reaction Description Start Date Severity Status Provider TRAMADOL HCL dizziness Moderate Active Josué becker Bennett HYDROCODONE-ACETAMIN OPHEN Loopy Severe Active Braden George ship BENADRYL ALLERGY makes him incoherent and loopy Severe Active Braden Quintero hip DAPTOMYCIN Myositis Moderate Active Diepsh cole MD DOXYCYCLINE HYCLATE Moderate Active Dipesh [...] Name Date Entry Date CPT-sl STAT Labs [id number] CBC with Differential 2023 CPT-80942 CMP CPT-01906 C- reactive protein CPT-77703 Sedimentation Rate (ESR) 08/11/27 CPT-sl STAT Labs CPT-sl STAT Labs CPT-sl STAT Labs CPT-sl STAT Labs CPT-04331 CMP [id number] CBC with Differential 2022 CPT-42366 C- reactive protein CPT-67818 Sedimentation Rate (ESR) 07/14/05 CPT-sl STAT Labs CPT-sl STAT Labs CPT-01501 CMP [id number] CBC with Differential 2022 CPT-04181 C- reactive protein CPT-30440 Vancomycin Trough CPT-sl STAT Labs CPT-sl STAT Labs CPT-26947 CMP [id number] CBC with Differential 2022 CPT-77925 C- reactive protein [id number], [id number] CPK CPT-95697 Sedimentation Rate (ESR) 202 07/12/03 CPT-60091 Vancomycin Trough CPT-sl STAT Labs CPT-sl STAT Labs CPT-33647 CMP CPT-01739 Sedimentation Rate (ESR) 202 07/09/11 CPT-83273 C- reactive protein [id number] CBC with Differential 2022 CPT-sl STAT Labs [...]
[2024-11-16 20:01] VITALS: BP 122/69; PULSE 82; PULSE 84; RESP 18; RESP 22; TEMP 37.1; O2SAT 97; O2SAT 98; BMI 24.0
--- NOTE | 2024-11-16 20:01 | ED_ITS ---
Discharge Plan Disposition Patient Disposition: Home, Self-Care Condition: Good Prescriptions Prescriptions: No Action omeprazole 20 mg capsule,delayed release(DR/EC) 20 mg PO DAILY Patient Comments: TAKE 1 CAPSULE BY MOUTH ONCE DAILY furosemide 40 mg tablet 40 mg PO DAILY lorazepam 0.5 mg tablet 0.5 mg PO TID PRN (Reason: Anxiety) Patient Comments: TAKE 1 TABLET BY MOUTH THREE TIMES DAILY ibuprofen 800 mg tablet 800 mg PO Q8H PRN (Reason: Pain) gabapentin 600 mg tablet 600 mg PO TID nifedipine [Procardia XL] 30 mg tablet extended release 24hr 30 mg PO DAILY Qty: 30 2RF hydroxychloroquine 200 MG tablet 200 mg PO DAILY Referrals Follow up/Referrals: Jovita Nugent MD [Primary Care Provider, Medical] - See instructions Activity Restrictions/Add. Instructions Additional Instructions/Restrictions: Please return to the emergency department any worsening signs or symptoms, please follow-up with your orthopedic doctor in the upcoming days, please follow-up with your physical therapy appointments, continue take all your medication as prescribed, I recommend advancing your diet with liquids and solids. Clinical Impressions Clinical Impression: Generalized weakness, Physical deconditioning Instructions Patient Instructions: DI for Muscle Weakness Print Language Print Language: Indian Discharge ED Provider: Alan Jackson General Adult HPI <CAT Joiner - Last Filed: 11/16/24 22:26> General Chief complaint: Weakness Stated complaint: Unable to walk Time Seen by Provider: 11/16/24 19:55 Mode of Arrival: Ambulatory Source of Information: Patient Limitations: No Limitations History of Present Illness HPI narrative: 63-year-old male presents to the emergency department companied by his family member for generalized weakness and describes as legs giving out on me , patient states that he was sitting on the porch, when he went to get up and his legs gave out , denies striking the head, complains of left knee pain and right knee pain as well as left hip pain, patient is around 6 weeks status post ORIF of displaced left femur fracture, he is slated to undergo physical therapy tomorrow, has been doing at home physical therapy/exercises for strength training, patient denies any fever chills chest pain shortness of breath, denies dizziness, denies lightheadedness, denies any presyncopal or syncopal episode, denies any abdominal pain, denies any neck pain, lower back pain, nausea radicular pain, denies any numbness or tingling, denies urinary bladder or bowel dysfunction, patient is a current of a smoker, utilizes alcohol daily around 6- 12 beers daily , currently is drinking 5 beers today, denies any other drug use, initial triage vitals are unremarkable. Other past medical history consistent with COPD, tubular adenoma of colon, CHF, SLE, GERD, patient also endorses bilateral lower extremity swelling, that is been present prior to surgery. Of note, patient's family states the patient has had poor p.o. intake/decreased appetite for the last week . Onset (ago): hour(s) Related Data Home Medications ?Medication ?Instructions ?Recorded ?Confirmed hydroxychloroquine 200 mg tablet 200 mg PO DAILY lupus 10/11/17 08/18/24 furosemide 40 mg tablet 40 mg PO DAILY 08/14/2008/08 gabapentin 600 mg tablet 600 mg PO TID 08/14/2008/18 ibuprofen 800 mg tablet 800 mg PO Q8H PRN Pain 08/1408/18/24 lorazepam 0.5 mg tablet 0.5 mg PO TID PRN Anxiety 08/18/24 omeprazole 20 mg capsule,delayed 20 mg PO DAILY 08/18/24 release Previous Rx's ?Medication ?Instructions ?Recorded nifedipine 30 mg tablet,extended 30 mg PO DAILY #30 ta bs 08/14/20 release 24 hr (Procardia XL) Allergies Allergy/AdvReac Type Severity Reaction Status Date / Time No Known Allergies Allergy Verified 08/18/24 06:33 [facility] <CAT Joiner - Last Filed: 11/16/24 22:26> [facility] Disclaimer: The information contained in this section may have been updated after the patient was seen, as this information can be updated by other users. Medical History Paraseptal emphysema History of smoking 30 or more pack years COPD (chronic obstructive pulmonary disease) Dyspnea on exertion Screening for lung cancer Pulmonary emphysema Tobacco abuse disorder Tobacco abuse counseling Smoking greater than 30 pack years Chest pain Palpitations Tobacco dependence syndrome Sinus tachycardia Gastroesophageal reflux disease CHF (congestive heart failure) COPD (chronic obstructive pulmonary disease) Dyspnea Surgical History History of arthroscopic knee surgery Family History Other Cancer Social History Smoking Status: Current every day smoker tobacco type: cigarettes alcohol intake: never counseling provided: none substance use type: denies use current occupational status: retired and other Travel in the last 8 weeks?: None caffeine: Yes Have you lived/traveled outside US in past 30 days?: No Contact w/someone who lives/traveled outside US past 30 days?: No Exposure to someone with infectious disease in past 14 days?: No Do you have a fever (greater than 100.4 F or 38 C)?: No Have you tested positive for COVID-19?: No Exposed to someone with COVID-19 in past 14 days?: No Do you have a sore throat?: No Do you have a cough?: No Do you have any weakness?: No Do you have any diarrhea?: No Are you experiencing any unusual bleeding?: No Do you have any muscle aches/pain?: No Do you have any abdominal pain?: No Are you experiencing loss of taste or smell?: No Other Medical History Have you received the Flu Vaccine for this season: No Have you received the Pneumonia Vaccine: Yes <CAT Joiner - Last Filed: 11/16/24 22:26> ROS Obtained: Yes All systems reviewed & no additional complaints except as documented Physical Exam <CAT Joiner - Last Filed: 11/16/24 22:26> General General appearance: alert and in no apparent distress Head Head exam: atraumatic and normocephalic Eye Eye exam: Present PERRL and EOMI ENT ENT exam: Present mucous membranes moist Neck Neck exam: Present normal inspection Chest Chest inspection: Present normal inspection and symmetric chest wall rise Respiratory Respiratory exam: Present normal lung sounds bilaterally; Absent respiratory distress Cardiovascular Cardiovascular exam: Present regular rate and normal rhythm Abdominal Exam Abdominal exam: Present soft; Absent tenderness, guarding or rebound Extremities Exam Extremities exam: Present normal inspection Back Exam Back exam: Present full ROM; Absent tenderness, paraspinal tenderness or vertebral tenderness Neurological Exam Neurological exam: Present alert, oriented X3 and other (Patient has 5 out of 5 strength of bilateral lower and upper extremities, moves extremities to command, no limb drift in the bilateral upper or lower extremities, no focal gross sensation deficit.) Psychiatric Psychiatric exam: Present normal affect Skin Skin exam: Present warm, dry and other (2+ pitting edema in the bilateral lower extremities, no erythema, no warm to touch sensation, otherwise neurovascularly intact, evidence of depigmentation/hyperpigmentation on the patient's hands bilaterally, has history of SLE) Medical Decision Making <CAT Joiner - Last Filed: 11/16/24 22:26> Medical Records Medical records reviewed: Yes I reviewed the patient's medical records. Screening: Per USPSTF and CDC recommendations, given the prevalence of disease in our region, it is our hospital?s policy to screen for HIV and viral Hepatitis for all patients aged 18 and over and those with ongoing risk factors. Raymond Inquiry Pt receiving controlled substance: No Raymond was queried for this patient: No Vital Signs: 11/16/24 20:01 11/16/24 20:01 11/16/24 20:30 Temperature 98.8 F Temperature Source Oral Pulse Rate 84 79 Pulse Rate [Left] 82 Pulse Rate [Orthostatic Lying Bilateral] Pulse Rate [Orthostatic Sitting Bilateral] Pulse Rate [Orthostatic Standing Bilateral] Respiratory Rate 22 18 16 Blood Pressure 122/69 115/61 Blood Pressure [Orthostatic Lying Right Arm] Blood Pressure [Orthostatic Sitting Right Arm] Blood Pressure [Orthostatic Standing Right Arm] Blood Pressure [Right Arm] 122/69 Blood Pressure Mean 82 Blood Pressure Mean [Right Arm] 86 Blood Pressure Source Blood Pressure Source [Right Arm] Automatic Cuff Blood Pressure Position Blood Pressure Position [Right Arm] Sitting 02 Sat by Pulse Oximetry 98 97 93 L Oxygen Delivery Method Room Air 11/16/24 21:00 11/16/24 21:30 11/16/24 21:59 Temperature Temperature Source Pulse Rate 77 78 Pulse Rate [Left] Pulse Rate [Orthostatic Lying Bilateral] 77 Pulse Rate [Orthostatic Sitting Bilateral] 82 Pulse Rate [Orthostatic Standing Bilateral] 87 Respiratory Rate 13 19 Blood Pressure 106/61 L 118/57 L Blood Pressure [Orthostatic Lying Right Arm] 112/56 L Blood Pressure [Orthostatic Sitting Right Arm] 121/65 Blood Pressure [Orthostatic Standing Right Arm] 129/74 Blood Pressure [Right Arm] Blood Pressure Mean Blood Pressure Mean [Right Arm] Blood Pressure Source Blood Pressure Source [Right Arm] Blood Pressure Position Blood Pressure Position [Right Arm] 02 Sat by Pulse Oximetry 98 96 Oxygen Delivery Method 11/16/24 22:28 Temperature 98.8 F Temperature Source Oral Pulse Rate 76 Pulse Rate [Left] Pulse Rate [Orthostatic Lying Bilateral] Pulse Rate [Orthostatic Sitting Bilateral] Pulse Rate [Orthostatic Standing Bilateral] Respiratory Rate 22 Blood Pressure 124/61 Blood Pressure [Orthostatic Lying Right Arm] Blood Pressure [Orthostatic Sitting Right Arm] Blood Pressure [Orthostatic Standing Right Arm] Blood Pressure [Right Arm] Blood Pressure Mean Blood Pressure Mean [Right Arm] Blood Pressure Source Automatic Cuff Blood Pressure Source [Right Arm] Blood Pressure Position Sitting Blood Pressure Position [Right Arm] 02 Sat by Pulse Oximetry Oxygen Delivery Method Room Air Lab Data Lab results reviewed: Yes I reviewed the patient's lab results. Lab Results 11/16/24 20:06: WBC 3.1 L, RBC 3.30 L, Hgb 11.8 L, Hct 36.0 L, MCV 109.1 H, MCH 35.8 H, MCHC 32.8, RDW 12.9, Plt Count 138 L, MPV 11.3 H, Neut % (Auto) 26.8 L, Lymph % (Auto) 53.2 H, Calhoun % (Auto) 11.3 H, Eos % (Auto) 7.1, Baso % (Auto) 1.3, Neut # (Auto) 0.8 L*, Lymph # (Auto) 1.7, Calhoun # (Auto) 0.4, Eos # (Auto) 0.2, Baso # (Auto) 0.0, Total Counted 100, Neutrophils % (Manual) 27 L, L ymphocytes % (Manual) 53 H, Monocytes % (Manual) 11 H, Eosinophils % (Manual) 8 H, Basophils % (Manual) 1.0, Platelet Estimate Normal, Giant Platelets 1+, Polychromasia 1+, Poikilocytosis 1+, Anisocytosis 1+, Microcytosis 1+, Macrocytosis 1+, Tear Drop Cells 1+, Ovalocytes 1+, Sodium 128 L, Potassium 4.2, Chloride 98, Carbon Dioxide 18 L, Anion Gap 16.2 H, BUN 6 L, Creatinine 1.10, Estimated Creat Clear 78, Estimated GFR 67, Est GFR ( Amer) 81, Glucose 80, Calcium 9.1, Total Bilirubin 0.4, AST 32, ALT 14, Alkaline Phosphatase 91, N T-Pro-B Natriuret Pep 1230 H, Total Protein 7.6, Albumin 3.7, Globulin 3.9 H, A lbumin/Globulin Ratio 0.9 L 11/16/24 20:06 11/16/24 20:06 Orders (Tests/Meds): ORDERS Category Date Time Status XR hip LT 2-3V w/pelvis Stat Exams 11/16/24 20:22 Completed XR knee LT 3V Stat Exams 11/16/24 20:22 Completed XR knee RT 3V Stat Exams 11/16/24 20:22 Completed Complete Blood Count Auto Diff Stat Lab 11/16/24 20:06 Completed Comprehensive Metabolic Panel Stat Lab 11/16/24 20:06 Completed NT Pro Brain Natriuretic Pep. Stat Lab 11/16/24 20:06 Completed Medical Decision Narrative: 63-year-old male presents to the emergency department with generalized weakness and a near fall, differential diagnose include but not limited to postoperative pain, hardware failure, femur fracture, physical deconditioning, electrolyte service, cardiac arrhythmia among others. I discussed this patient's case with the attending physician Obtain basic laboratory studies, orthostatic blood pressure, EKG, BMP, x-ray of the left knee, x-ray of the right knee and x-ray of the hip/pelvis on the left. CBC is notable for leukopenia at 3.1, erythrocyte appearing at 3.3, hemoglobin is decreased 11.8, hematocrit is decreased 36, MCV is elevated at one 9.1, thrombocytopenia 138, neutropenia at 0.8, some evidence of pancytopenia, could be due to the patient's underlying SLE Hyponatremia at 128, minimal anion gap at 16.2, proBNP is mildly elevated at 1230 I reviewed the patient's bilateral knee x-rays, along the corresponding radiological reports, no acute bony abnormality. The patient's pelvic x-ray/left hip x-ray along with corresponding radiological report, no acute radiographic findings identified. Patient was able to walk test with walker, similar to his previous, patient has physical therapy appointment slated for tomorrow, advised him to keep this appointment, recommend follow-up with his PCP, and other providers as directed, patient was given strict ED return precaution, generalized fall precautions. Patient and family voiced understanding and agreed with current treatment plan/discharge plan. <Alan Jackson MD - Last Filed: 11/17/24 02:23> Vital Signs: 11/16/24 20:01 11/16/24 20:01 11/16/24 20:30 Temperature 98.8 F Temperature Source Oral Pulse Rate 84 79 Pulse Rate [Left] 82 Pulse Rate [Orthostatic Lying Bilateral] Pulse Rate [Orthostatic Sitting Bilateral] Pulse Rate [Orthostatic Standing Bilateral] Respiratory Rate 22 18 16 Blood Pressure 122/69 115/61 Blood Pressure [Orthostatic Lying Right Arm] Blood Pressure [Orthostatic Sitting Right Arm] Blood Pressure [Orthostatic Standing Right Arm] Blood Pressure [Right Arm] 122/69 Blood Pressure Mean 82 Blood Pressure Mean [Right Arm] 86 Blood Pressure Source Blood Pressure Source [Right Arm] Automatic Cuff Blood Pressure Position Blood Pressure Position [Right Arm] Sitting 02 Sat by Pulse Oximetry 98 97 93 L Oxygen Delivery Method Room Air 11/16/24 21:00 11/16/24 21:30 11/16/24 21:59 Temperature Temperature Source Pulse Rate 77 78 Pulse Rate [Left] Pulse Rate [Orthostatic Lying Bilateral] 77 Pulse Rate [Orthostatic Sitting Bilateral] 82 Pulse Rate [Orthostatic Standing Bilateral] 87 Respiratory Rate 13 19 Blood Pressure 106/61 L 118/57 L Blood Pressure [Orthostatic Lying Right Arm] 112/56 L Blood Pressure [Orthostatic Sitting Right Arm] 121/65 Blood Pressure [Orthostatic Standing Right Arm] 129/74 Blood Pressure [Right Arm] Blood Pressure Mean Blood Pressure Mean [Right Arm] Blood Pressure Source Blood Pressure Source [Right Arm] Blood Pressure Position Blood Pressure Position [Right Arm] 02 Sat by Pulse Oximetry 98 96 Oxygen Delivery Method 11/16/24 22:28 Temperature 98.8 F Temperature Source Oral Pulse Rate 76 Pulse Rate [Left] Pulse Rate [Orthostatic Lying Bilateral] Pulse Rate [Orthostatic Sitting Bilateral] Pulse Rate [Orthostatic Standing Bilateral] Respiratory Rate 22 Blood Pressure 124/61 Blood Pressure [Orthostatic Lying Right Arm] Blood Pressure [Orthostatic Sitting Right Arm] Blood Pressure [Orthostatic Standing Right Arm] Blood Pressure [Right Arm] Blood Pressure Mean Blood Pressure Mean [Right Arm] Blood Pressure Source Automatic Cuff Blood Pressure Source [Right Arm] Blood Pressure Position Sitting Blood Pressure Position [Right Arm] 02 Sat by Pulse Oximetry Oxygen Delivery Method Room Air Lab Data Lab Results 11/16/24 20:06: WBC 3.1 L, RBC 3.30 L, Hgb 11.8 L, Hct 36.0 L, MCV 109.1 H, MCH 35.8 H, MCHC 32.8, RDW 12.9, Plt Count 138 L, MPV 11.3 H, Neut % (Auto) 26.8 L, Lymph % (Auto) 53.2 H, Calhoun % (Auto) 11.3 H, Eos % (Auto) 7.1, Baso % (Auto) 1.3, Neut # (Auto) 0.8 L*, Lymph # (Auto) 1.7, Calhoun # (Auto) 0.4, Eos # (Auto) 0.2, Baso # (Auto) 0.0, Total Counted 100, Neutrophils % (Manual) 27 L, L ymphocytes % (Manual) 53 H, Monocytes % (Manual) 11 H, Eosinophils % (Manual) 8 H, Basophils % (Manual) 1.0, Platelet Estimate Normal, Giant Platelets 1+, Polychromasia 1+, Poikilocytosis 1+, Anisocytosis 1+, Microcytosis 1+, Macrocytosis 1+, Tear Drop Cells 1+, Ovalocytes 1+, Sodium 128 L, Potassium 4.2, Chloride 98, Carbon Dioxide 18 L, Anion Gap 16.2 H, BUN 6 L, Creatinine 1.10, Estimated Creat Clear 78, Estimated GFR 67, Est GFR ( Amer) 81, Glucose 80, Calcium 9.1, Total Bilirubin 0.4, AST 32, ALT 14, Alkaline Phosphatase 91, N T-Pro-B Natriuret Pep 1230 H, Total Protein 7.6, Albumin 3.7, Globulin 3.9 H, A lbumin/Globulin Ratio 0.9 L Orders (Tests/Meds): ORDERS Category Date Time Status XR hip LT 2-3V w/pelvis Stat Exams 11/16/24 20:22 Completed XR knee LT 3V Stat Exams 11/16/24 20:22 Completed XR knee RT 3V Stat Exams 11/16/24 20:22 Completed Complete Blood Count Auto Diff Stat Lab 11/16/24 20:06 Completed Comprehensive Metabolic Panel Stat Lab 11/16/24 20:06 Completed NT Pro Brain Natriuretic Pep. Stat Lab 11/16/24 20:06 Completed Medical Decision Narrative: 63-year-old male presents to the emergency department with generalized weakness and a near fall, differential diagnose include but not limited to postoperative pain, hardware failure, femur fracture, physical deconditioning, electrolyte service, cardiac arrhythmia among others. I discussed this patient's case with the attending physician Obtain basic laboratory studies, orthostatic blood pressure, EKG, BMP, x-ray of the left knee, x-ray of the right knee and x-ray of the hip/pelvis on the left. CBC is notable for leukopenia at 3.1, erythrocyte appearing at 3.3, hemoglobin is decreased 11.8, hematocrit is decreased 36, MCV is elevated at one 9.1, thrombocytopenia 138, neutropenia at 0.8, some evidence of pancytopenia, could be due to the patient's underlying SLE Hyponatremia at 128, minimal anion gap at 16.2, proBNP is mildly elevated at 1230 I reviewed the patient's bilateral knee x-rays, along the corresponding radiological reports, no acute bony abnormality. The patient's pelvic x-ray/left hip x-ray along with corresponding radiological report, no acute radiographic findings identified. Patient was able to walk test with walker, similar to his previous, patient has physical therapy appointment slated for tomorrow, advised him to keep this appointment, recommend follow-up with his PCP, and other providers as directed, patient was given strict ED return precaution, generalized fall precautions. Patient and family voiced understanding and agreed with current treatment plan/discharge plan. I was consulted by the DOMINIC, and we discussed the complexity of the problems being addressed. I approve the treatment and management plan for this patient's care in the emergency department, thus performing a substantive portion of the medical decision making. Alan Jackson MD Critical Care <CAT Joiner - Last Filed: 11/16/24 22:26> Critical Care Time Critical Care Time: No
--- OUTSIDE RECORDS SUMMARY | 2024-11-16 20:01 | XMS_ITS | Data Portability ---
Author Organization [facility] Address [address] [place] [address] Care Team Providers Care Brick Tester Name Role Phone TIGIST BRADSHAW Primary Care Provider [phone] Assessment No assessment recorded. Plan of Treatment Reminders Order Date Submit Date Provider Last Modified By Organization Details Last Modified Time Details Appointments None recorded. Lab None recorded. Referral None recorded. Procedures None recorded. Surgeries None recorded. Imaging None recorded. Medication Orders triamcinolo ne acetonide 0.1 % topical cream [address] [facility] [place], [address], 4 10:49:25 Patient TargetsNo targets recorded. Patient [...] SNOMED-CT Code Diagnosis ICD10 Code Diagnosis Note [id number] BEVERLY ALAN MD [address] [address] 08/24/2023 09:23:52 08/24/2023 11:52:49 Multiple benign melanocytic nevi 114825360 D22.5 - Benign lesions seen on exam [...] changing or worrisome lesions Seborrheic keratosis 394 944172 L82.1 - Benign overgrowth s of skin - Hereditary Senile angioma 5846548 I 78.1 - Benign blood vessel growths - Hereditary Solar lentigo 43218216 L 81.4 - Benign brown spots - Sun-induce d Systemic l upus erythematosus 82714529 M32.8 L27.0 Nature of diagnosis discussed further.Re commend regular eye exams, blood work, and PCP/Rheuma tology appointmen tsRecommen d rx TAC 0.1% topical cream to use BID on the body for no more than 2 weeks at a time. SE reviewed. jail use discussed. Do not use on face or skin folds.Hunter mmend discussing restarting the Plaquenil with Dr. [place] with change or concern Cyst of skin 944733419 L 72.9 Benign nature of diagnosis discussed. Discussed excision as possible treatmentF up with change or concern Vitiligo 67168331 L80 Nature of diagnosis discussedF up with [...] (MEDICARE REPLACEMENT/A DVANTAGE - PPO) Christian Castorena [id number] Christian Castorena Notes Date Note Type Note [...] halobetasol, and hydrocortisone BEVERLY ALAN MD [address] [facility], [place], [address], [facility] - [facility] 08/24/2023 11:37:21
--- OUTSIDE RECORDS SUMMARY | 2024-11-16 20:01 | XMS_ITS | Encounter Summary ---
Author Organization Healthcare Address [address] [place] [address] Care Team Providers Care Sales Superintendent Name Role Phone Dario Nugent MD Primary Care Provider [phone] Encounter Details Date Type Department Care Team (Late st Contact Info) Description 09/25/2024 Orders Only External Location [address] [place] [address] Provider, External Social History Tobacco Use Types [...] documented as of this encounter Care Teams Sales Superintendent Relationship Specialty Start Date End Date Dario Nugent MD [address] [place] [address] PCP - General 09/20/20 documented as of this encounter
--- OUTSIDE RECORDS SUMMARY | 2024-11-16 20:01 | XMS_ITS | Encounter Summary ---
Author Organization [facility] Address [address] [place] [address] Care Team Providers Care Plumbing And Heating Contractor Name Role Phone Dario Nugent MD Primary Care Provider [phone] Encounter Details Date Type Department Care Team (Late st Contact Info) Description 09/25/2024 Orders Only External Location [address] [place] [address] Bonnie Mello MD [address] [place] [address] Social History Tobacco Use Types Packs/Day Years [...] documented as of this encounter Care Teams Plumbing And Heating Contractor Relationship Specialty Start Date End Date Dario Nugent MD [address] [place] [address] PCP - General 09/20/20 documented as of this encounter
--- OUTSIDE RECORDS SUMMARY | 2024-11-16 20:01 | XMS_ITS | Patient Health Record ---
Author Organization [facility] Address [address] [place] [id number] Care Team Providers Care Catering Sales Manager Name Role Phone Elif Nugent Primary Care Provider [phone] Carlos A Davidson Unavailable [phone] Allergies No Known Allergies Results Component Value Reference Range Notes P-Basic Metabolic Panel (BMP ) Reviewed date:03/07/2024 05:05:46 PM Interpretation:co2- 19 Performing Lab: Notes/Report: Test performed by [facility] [address] [place] [address] , [address], [place] [address] Jordan Trammell MD, Taxation Inspector CLIA: [id number] Sodium 135 135-145 mmol/L Potassium 4.4 3.5-5.3 [...] 74 Performing Lab: Notes/Report: Test performed by [facility] [address] [place] [address] , [address], [place] [address] Jordan Trammell MD, Taxation Inspector CLIA: [id number] WBC 2.3 3.8-11.5 K/uL Red Blood Cell [...] Interpretation: Performing Lab: Notes/Report: Test performed by [facility] [address] [place] [address] , [address] , [place] [address] Jordan Trammell MD, Taxation Inspector CLIA: [id number] Polychromasia Slight Macrocytosis Moderate Poikilocytosis Marked Anisocytosis Slight [place] Cell Few Ovalocytes Few Tear Drop Cells Few Platelet Slide Review Decreased PLT: Large Platelets present. Platelet clumps observed on smear. Please submit a full sodium citrate tube (light blue) in addition to EDTA for all future CBC requests. CBC Venipuncture (in house) Reviewed date:11/14/2024 11:37:53 [...] - 38 platlet 178 100 - 400 Medications Medication SIG (Take, Route, Frequency, Duration) Notes Start Date End Date Status Gabapentin 600 MG 1 tab(s) orally 3 times a day 11/13/2024 Active NIFEdipine ER 30 MG Take 1 tablet by mouth once daily Once a day; Duration: 90 days Active LORazepam 0.5 MG 1 tab(s) orally 3 times a day; Duration: 30 day(s) 11/13/2024 Active BIFIDOBACTERIUM-LACTOBACILL US - 1 CAP(S) ORALLY ONCE A DAY Active Ibuprofen 800 MG 1 tablet with food o r milk as needed Orally 3 times a day; Duration: 90 days Active Aspirin 81 MG 1 tab(s) orally once a day; Duration: 30 day(s) Active Medrol 4 MG as directed orally daily; Duration: 6 days 06/02/2024 Not-Taking amLODIPine Besylate 2.5 MG 1 tab(s) oral ly twice a day Active Narcan 4 MG/0.1ML as directed intranasally once Not-Taking Albuterol Sulfate HFA 108 (90 Base) MCG/ACT 2 puff(s) inhaled qid prn Active Potassium Chloride ER 10 MEQ 1 tablet with food Orally Once a day 11/01/2023 Active Hydroxychloroquine Sulfate 200 MG Take 1 tablet by mouth twice daily; Duration: 90 Active Vitamin D3 25 MCG 1 tab(s) orally once a day; Duration: 30 day(s) Active Pantoprazole Sodium 20 MG Take 1 tablet by mouth once daily; Duration: 90 Active Melatonin 3 MG 1 tab(s) orally once a day (at bedtime) Active Docusate Sodium 100 MG 1 cap(s) orally 2 times a day Active Furosemide 40 MG 1 tab(s) orally once a day; Duration: 90 days Active Peridex 0.12 % 10 ml orally 2 times a day; Duration: 30 day(s) Active Immunizations Vaccine Route Administration Date Status Comme [...] (Z96.651) Active confirmed Vital Signs Heart Rate 88 /min 11/13/2024 Blood pressure diastolic 56 mm Hg 11/13/2024 Height 71.50 in 11/13/2024 Blood pressure systolic 102 mm Hg 11/13/2024 Weight 182.0 lbs 11/13/2024 BMI 25.03 kg/m2 11/13/2024 Encounters Encounter Location Date Provider Diagnosis 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 and Lupus erythematosus L93.[address] [id number] 06/02/2024 Elif Nugent Essential hypertensi on I10 ; Anxiety F41.9 ; Centrilobular emphysema J43.2 ; Status post left knee replacement Z96.652 ; Status post right knee replacement Z96.651 ; Lupus erythematosus L93.0 and Pharyngitis, unspecified etiology J02.[address] [id number] 10/23/2024 Elif Nugent Closed fracture of distal end of femur with routine healing, unspecified fracture morphology, unspecified laterality, subsequent encounter S72.409D ; Localized edema R60.0 and Systemic lupus erythematosus, unspecified SLE type, unspecified organ involvement status M32.[address] [id number] 11/13/2024 Elif Nugent 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 ; Lupus erythematosus L93.0 ; Other chronic pain G89.29 ; Anxiety F41.9 and Other chronic pain G89.29 [place] [address] [place], [place] [id number] 11/19/2023 Carlos A Lincoln Anxiety F41.9 [facility] [address] [place], [place] [id number] 12/20/2023 Carlos A Lincoln Anxiety F41.9 [facility] [address] [place], [place] [id number] 12/29/2023 J Cosme Raffi [facility] [address] [place], [place] [id number] 01/12/2024 J Cosme Nugent Other chronic pain G89.29 [facility] [address] [place], [place] [id number] 01/20/2024 J Cosme Raffi Anxiety F41.9 [facility] [address] [place], [place] [id number] 03/07/2024 J Cosme Raffi [facility] [address] [place], [place] [id number] 04/28/2024 Carlos A Lincoln Anxiety F41.9 [facility] [address] [place], [place] [id number] 05/30/2024 J Cosme Raffi Anxiety F41.9 [facility] [address] [place], [place] [id number] 06/02/2024 J Cosme Raffi [facility] [address] [place], [place] [id number] 08/04/2024 J Cosme Raffi Anxiety F41.9 [facility] [address] [place], [place] [id number] 08/21/2024 J Cosme Raffi [facility] [address] [place], [place] [id number] 09/26/2024 J Cosme Nugent [facility] [address] [place], [place] [id number] 09/29/2024 J Cosme Raffi [facility] [address] [place] [id number] 10/24/2024 Elif [facility] [address] [place], [place] [id number] 10/26/2024 Elif Nugent [facility] [address] [place], [place] [id number] 10/26/2024 Elif Nugent [facility] [address] [place] [id number] 10/31/2024 Elif Nugent [facility] [address] [facility] [address] [place], [place] [id number] 11/09/2024 Elif Nugent Assessments Encounter Date Diagnosis (ICD Code) Assessment Notes Treatment Notes Treatment Clinical Notes Section Notes 11/19/2023 Anxiety (ICD-10 - F41.9) 12/20/2023 Anxiety (ICD-10 - F41.9) 01/12/2024 Other chronic pain (ICD-10 - G89.29) 01/20/2024 Anxiety (ICD-10 - F41.9) 03/02/2024 Essential hypertension (ICD-10 - I10) 03/02/2024 Centrilobular emphysema (ICD-10 - J43.2) 04/28/2024 Anxiety (ICD-10 - F41.9) 05/30/2024 Anxiety (ICD-10 - F41.9) 10/23/2024 Localized edema (ICD-10 - R60.0) 10/23/2024 Closed fracture of distal end of femur with routine healing, unspecified fracture morphology, unspecified laterality, subsequent encounter (ICD-10 - S72.409D) 11/13/2024 Status post revision of total replacement of right knee (ICD-10 - Z96.651) 08/04/2024 Anxiety (ICD-10 - F41.9) 06/02/2024 Essential hypertension (ICD-10 - I10) 06/02/2024 Anxiety (ICD-10 - F41.9) 11/13/2024 Lupus erythematosus (ICD-10 - L93.0) 06/02/2024 Centrilobular emphysema (ICD-10 - J43.2) 03/02/2024 Benign prostatic hyperplasia without lower urinary tract symptoms (ICD-10 - N40.0) 10/23/2024 Systemic lupus erythematosus, unspecified SLE type, unspecified organ involvement status (ICD-10 - M32.9) 03/02/2024 Status post right knee replacement (ICD-10 - Z96.651) 11/13/2024 Other chronic pain (ICD-10 - G89.29) 06/02/2024 Status post left knee replacement (ICD-10 - Z96.652) 06/02/2024 Status post right knee replacement (ICD-10 - Z96.651) 03/02/2024 Status post revision of total replacement of right knee (ICD-10 - Z96.651) 11/13/2024 Anxiety (ICD-10 - F41.9) 03/02/2024 Lupus erythematosus (ICD-10 - L93.0) 11/13/2024 Other chronic pain (ICD-10 - G89.29) 06/02/2024 Lupus erythematosus (ICD-10 - L93.0) 06/02/2024 Pharyngitis, unspecified etiology (ICD-10 - J02.9) 10/23/2024 Other Discharge summary with available lab/diagnostic imaging results obtained and reviewed. Discharge medication list reconciled. Appropriate counseling provided. Moderate Complexity Plan Of Treatment Pending Test Test Name Order Date CP-CMP 05/06/2020 P-Comprehensive Metabolic Panel (CMP) P-[facility] 05/17/2023 Next Appt Details Provider Name:Denisha vivar, 11/30/2024 02:40:00 PM, [address] [facility] [address] [facility] [facility] [address], [place], [place], [id number], Provider Name:Elif Zapata er, 01/15/2025 03:45:00 PM, [address] [facility], [place], [place], [id number], Insurance Providers Payer Name Payer Address Payer Phone Subscriber Number Group Number Insured Name Patient Relationship to Insured Coverage Start Date Coverage End Date [employer] (MEDICAR E) [address] [address] [place] [address] [phone] [id number] ROHAN COWART Self - patient is the [...] left knee replacement surgery, Dr. Jose clarke, [facility] 09/05/2018 right knee replacement surgery, Dr. Sree iwsdom [facility] 12/05/2018 EGD with biopsy 11/2012 Revision of right knee repla cement with Explant antibiotic spacer, Dr Stratton 07/16/22 Left periprosthetic femur fracture Hospitalization History Reason Date(Month/Year) [facility] - mikaela 04/2020 [facility] ER - fall/colitis 06/13/2019 blacked out at home and was taken to [facility] ER and admitted 10/2011
--- OUTSIDE RECORDS SUMMARY | 2024-11-16 20:02 | XMS_ITS | Encounter Summary ---
Author Organization [facility] ([place], [place], [place], [place]) Address [address] [place] [address] Care Team Providers Care Mason Foreman/Superintendant Name Role Phone Dario Nugent MD Primary Care Provider [phone] Encounter Details Date Type Department Care Team [...] Do you speak a language other than [place] at [facility]? No 09/25/2024 Do you want help [...] on filedocumented in this encounter Care Teams Mason Foreman/Superintendant Relationship Specialty Start Date End Date Dario Nugent MD [address] [place] [address] PCP - General Family Medicine 09/25/24 documented as of this encounter
--- NOTE | 2024-11-16 20:10 | ECG_ITS ---
APPROVED REPORT Exam: Resting ECG HR:78 bpm ECG Measurements Heart Rate 78 AXES RI 151 P 52 QRSd 80 QRS 57 QT 378 T 58 QTc 411 Conclusion SINUS RHYTHM NORMAL ECG UNCONFIRMED REPORT Normal sinus rhythm. No ST elevation or depression. QTc normal at 411. Electronically signed by : LES GONSALES, 11/16/2024 23:31:25
--- NOTE | 2024-11-16 20:22 | XR_ITS ---
PROCEDURE INFORMATION: Exam: XR Right Knee Exam date and time: 11/16/2024 8:38 PM Age: 63 years old Clinical indication: Pain; Knee; Right; Additional info: Right knee pain TECHNIQUE: Imaging protocol: Radiologic exam of the right knee. Views: 3 views. COMPARISON: No relevant prior studies available. FINDINGS: Bones/joints: Knee arthroplasty without obvious periprosthetic or cement bony interface lucency. No fracture. Anatomic alignment. No conspicuous effusion. Soft tissues: Unremarkable. IMPRESSION: No acute findings identified.
--- NOTE | 2024-11-16 20:22 | XR_ITS ---
PROCEDURE INFORMATION: Exam: XR Left Hip Exam date and time: 11/16/2024 8:38 PM Age: 63 years old Clinical indication: Hip pain; Left hip; Additional info: Left hip pain, recent orif TECHNIQUE: Imaging protocol: Radiologic exam of the left hip. Views: 2 or 3 views hip with pelvis when performed. COMPARISON: CR XR PELVIS 1-2V 06/13/2019 11:45 AM FINDINGS: Bones/joints: Left femoral intramedullary joe. No fracture. Normal alignment. Degenerative changes of both hips and sacroiliac joints. Soft tissues: Unremarkable. IMPRESSION: No acute radiographic findings identified.
--- NOTE | 2024-11-16 20:22 | XR_ITS ---
PROCEDURE INFORMATION: Exam: XR Left Knee Exam date and time: 11/16/2024 8:38 PM Age: 63 years old Clinical indication: Pain; Knee; Left; Additional info: Left knee pain TECHNIQUE: Imaging protocol: Radiologic exam of the left knee. Views: 3 views. COMPARISON: CR XR FEMUR LT 2V 11/02/2024 10:52 AM FINDINGS: Bones/joints: Knee arthroplasty without obvious periprosthetic lucency. Distal femoral metadiaphyseal ORIF with healing fractures. No acute fractures identified. Stable alignment. No effusion. Soft tissues: Unremarkable. IMPRESSION: No acute findings identified.
[2024-11-16 20:29] LABS: Hematocrit 36.0 % (42.0-52.0); Hemoglobin 11.8 g/dL (14.1-18.0); Immature Granulocytes % 0.3 %; Mean Corpuscular HGB Conc 32.8 g/dL (31.8-35.4); Mean Corpuscular Hemoglobin 35.8 pg (27.0-31.2); Mean Corpuscular Volume 109.1 fl (80-94); Nucleated Red Blood Cells % 0 %; Platelet Count 138 K/mm3 (142-424); Red Blood Count 3.30 M/mm3 (4.60-6.20); Red Cell Distribution Width-SD 52.6 fL; White Blood Count 3.1 K/mm3 (4.8-10.8)
[2024-11-16 20:30] VITALS: BP 115/61; PULSE 79; RESP 16; O2SAT 93
[2024-11-16 20:34] LABS: Albumin Level 3.7 g/dl (3.5-5.0); Chloride 98 mmol/L (98-107); Sodium 128 mmol/L (136-145)
[2024-11-16 20:35] LABS: Potassium 4.2 mmoL/L (3.5-5.1)
[2024-11-16 20:37] LABS: Alanine Aminotransferase 14 U/L (12-78); Albumin/Globulin Ratio 0.9 (1.1-1.8); Alkaline Phosphatase 91 U/L (38-126); Anion Gap 16.2 mEq/L (5-15); Aspartate Amino Transferase 32 U/L (17-59); Bilirubin,Total 0.4 mg/dl (0.2-1.3); Blood Urea Nitrogen 6 mg/dl (9-20); Calcium 9.1 mg/dl (8.4-10.2); Carbon Dioxide 18 mmol/L (22.0-30.0); Creatinine Clearance Estimated 78 mL/min (50-200); Creatinine,Serum 1.10 mg/dl (0.66-1.25); Estimated Glomerular Filt Rate 67 ml/min (>60); GFR (African American) 81 ML/MIN (>60); Globulin 3.9 g/dL (1.3-3.2); Glucose 80 mg/dl (74-100); Total Protein,Serum 7.6 g/dl (6.3-8.2)
[2024-11-16 20:46] LABS: NT Pro Brain Natriuretic Pep. 1230 pg/mL (0-125)
--- NOTE | 2024-11-16 20:49 | PC.NURSE ---
Davidson provided for pt.
[2024-11-16 21:00] VITALS: BP 106/61; PULSE 77; RESP 13; O2SAT 98
[2024-11-16 21:20] LABS: Giant Platelets 1+; Total Cells Counted 100
[2024-11-16 21:21] LABS: Ovalocytes 1+; Poikilocytosis 1+; Tear Drop Cells 1+
[2024-11-16 21:22] LABS: Anisocytosis 1+; Macrocytosis 1+
[2024-11-16 21:30] VITALS: BP 118/57; PULSE 78; RESP 19; O2SAT 96
[2024-11-16 21:33] LABS: Microcytosis 1+; Polychromasia 1+
[2024-11-16 21:59] VITALS: BP 112/56; BP 121/65; BP 129/74; PULSE 77; PULSE 82; PULSE 87
[2024-11-16 22:28] VITALS: BP 124/61; PULSE 76; RESP 22; TEMP 37.1; O2SAT 100
--- NOTE | 2024-11-16 22:30 | PC.NURSE ---
IV discontinued. Catheter tip intact. Bleeding controlled
== END 2024-11-16 22:36 | disposition home or self-care (01) ==
PROVIDERS: Physician Assistant; Emergency Provider Student in an Organized Health Care Education/Training Program; PCP Family Medicine
DX: R53.1 Weakness (principal); R53.81 Other malaise; J44.9 Chronic obstructive pulmonary disease, unspecified; F17.210 Nicotine dependence, cigarettes, uncomplicated
CPT/HCPCS: 73502; 73562; 80053; 83880; 85007; 85025; 85027; 93005; 99284

== ENCOUNTER 2024-11-30 13:00 | Outpatient (RCR) | payer MEDICARE, SELFPAY ==
--- NOTE | 2024-11-17 16:59 | HMH.PTOPEV ---
PT Outpatient Evaluation Rehab PT Outpatient Evaluation Start: 11/17/24 11:12 Freq: Status: Active Protocol: Document 11/17/24 16:42 KARLOS (Rec: 11/17/24 16:59 KARLOS [id number]) E-signed By Kurtis Jacob, PT Outpatient Therapy Subjective History Subjective History This is the initial PT eval for Christian Castorena, 63 yowm who presents with c/o increased weakness and pain in his L LE. He reports he suffered a fall ~ 8 wks ago with resulting L distal femur periprosthetic fxs requiring IMN surgical repair. He was hospitalized for several days and then transferred to inpatient rehabilitation and received limited home health therapy after discharge home. He reports he continues to have episodes where he feels his L leg gives out and he is using a RW for all ambulation at this time. He has PMH of B TKA. Chief Complaint Pain,Gives out/Unstable Symptom Type Ache Symptoms Relieved By Rest/Positioning Symptoms Aggravated Physical Activity,Walking By Prior Functional None Limitations Current Functional Housework,Standing,Walking,Balance Limitations Symptom Description Constant but Variable Level of pain today 8 (0-10) Pain scale - at its 9 worst (0-10) Hip/Knee Eval Gait Observation General Gait Pattern Antalgic Gait,Decrease Stride Lngth (R) Observation Assistive Device Assistive Devices Rolling / Wheeled Walker Palpation Tenderness left Knee Palpation Tenderness Finding Knee Palpation L thigh 2/4 Overall Comment MMT Hip Flexion Strength 4- Good- Grade Hip Abduction 4 Good Strength Grade Hip Adduction 4+ Good+ Strength Grade Hip External 4- Good- Rotation Strength Grade Hip Internal 4- Good- Rotation Strength Grade Knee Extension 4 Good Strength Grade Knee Flexion 5 Normal Strength Grade ROM Knee Extension 0 Active Range of Motion (degrees) Knee Flexion Active 0-105 Range of Motion ( degrees) Special Tests Hip Piriformis Test Negative Left,Negative Right Sciatic Nerve Negative Left,Negative Right Tension Test Hip Scouring ( Negative Left,Negative Right Quadrant) Test Knee Valgus Stress Negative Left,Negative Right Test Knee Varus Stress Negative Left,Negative Right Test Lower Extremity Functional Index Activities Today, do you or would you have any difficulty at all with: a.Any of your usual Quite a bit of difficulty work, housework or school activities b. Your usual Extreme difficulty or unable to perform activity hobbies, recreational or sporting activities c. Getting into or Extreme difficulty or unable to perform activity out of the bath d. Walking between Quite a bit of difficulty rooms e. Putting on your Quite a bit of difficulty shoes or socks f. Squatting Extreme difficulty or unable to perform activity g. Lifting an object Moderate difficulty , like a bag of groceries from the floor h. Performing light Moderate difficulty activities around your home i. Performing heavy Extreme difficulty or unable to perform activity activities around your home j. Getting into or Quite a bit of difficulty out of a car k. Walking 2 blocks Extreme difficulty or unable to perform activity l. Walking a mile Extreme difficulty or unable to perform activity m. Going up or down Extreme difficulty or unable to perform activity 10 stairs (about 1 flight of stairs) n. Standing for 1 Extreme difficulty or unable to perform activity hour o. Sitting for 1 A little bit of difficulty hour p. Running on even Extreme difficulty or unable to perform activity ground q. Running on uneven Extreme difficulty or unable to perform activity ground r. Making sharp Extreme difficulty or unable to perform activity turns while running fast s. Hopping Extreme difficulty or unable to perform activity t. Rolling over in Quite a bit of difficulty bed LEFI Score Lower Extremity 12 Functional Index Score Miscellaneous Dx PT Eval Objective Objective TU sec with RW Outpatient Therapy Assessment Impairments Problems/ Palpation Tenderness,Impaired Range of Motion,Impaired Impairmments Strength,Impaired Endurance,Impaired Transfers,Impaired Gait Pattern,Impaired Walking,Impaired Standing, Impaired Household Care,Subjective C/O Pain,Impaired Self Care/Self Management Prognosis Rehab Potential Good Comment Skilled therapy services are indicated to increase strength, improve transfers, and improve ambulation in order to return pt to [facility]. Clinical Impression Consistent with Yes Diagnosis Short Term Goals Number of Weeks 4 Decreased Palpation Yes: 1/4 L thigh Tenderness Increase Range of Yes: L knee 0-110 Motion Increase Strength Yes: L LE at least 4/5 throughout Improve Gait Pattern Yes: no antalgic gait pattern with Assistive Device Improve LEFI Score Yes: 20 or more Decrease TUG Time Yes: 23 sec Decrease Subjective Yes: 6/10 L LE C/O Pain Patient to be Ind w/ Yes HEP Penitentiary Goals Number of Weeks 8 Decreased Palpation Yes: 0/4 L thigh Tenderness Increase Range of Yes: L knee 0-120 Motion Increase Strength Yes: L LE 5/5 throughout Increase Ability to Yes: 15 min with least restrictive AD Walk Improve LEFI Score Yes: 35 or more Decrease Subjective Yes: 08/17 L LE C/O Pain Patient to be Ind w/ Yes Advanced HEP Outpatient Therapy Plan of Care Treatment Plan May Include Therapeutic Exercise Yes Including Home Exercise Program Manual Therapy Yes Techniques Neuromuscular Re- Yes education Therapeutic Yes Activities to Return to Previous Functional/Work Level Gait Training Yes ADL/Self Care Yes Education Thermal Modalities Yes Electrical Yes Stimulation Orthotics/Bracing/ Yes Splinting Massage Yes Eval/Re-Eval Yes Frequency Times per week 2 Duration Number of Weeks 8 Addendums This patient is a No candidate for social or vocational rehab ? Patient/Guardian Yes verbally acknowledges understanding of treatment program and consents to further treatment? Patient/Guardian Yes verbally acknowledges understanding of diagnosis, prognosis and goals for treatment? Eval Complexity PT Charges 11973 - High Complexity Shoulder/Elbow Eval Shoulder Objective Measurements Elbow Objective Measurements PHYSICIAN CERTIFICATION: I certify the specified therapy services for Christian Castorena are required, authorized, and reviewed every 30 days.
== END 2024-11-30 23:59 | disposition home or self-care (01) ==
LOC: PT 13:00
PROVIDERS: PCP Family Medicine; Visit Provider Family Medicine
DX: S72.409D Unspecified fracture of lower end of unspecified femur, subsequent encounter for closed fracture with routine healing (principal); W19.XXXD Unspecified fall, subsequent encounter
CPT/HCPCS: 97110; 97163

== ENCOUNTER 2024-12-15 14:00 | Outpatient (RCR) | payer MEDICARE, SELFPAY ==
--- NOTE | 2024-12-15 14:49 | HMH.RHREAS ---
Rehab Reassessment Rehab OP Re-assessment Start: 12/11/24 11:05 Freq: Status: Active Protocol: Document 12/15/24 14:27 PHORNE (Rec: 12/15/24 14:46 PHORNE [id number]) E-signed By Kurtis Jacob, PT Lower Extremity Functional Index Activities Today, do you or would you have any difficulty at all with: a.Any of your usual Moderate difficulty work, housework or school activities b. Your usual Extreme difficulty or unable to perform activity hobbies, recreational or sporting activities c. Getting into or Moderate difficulty out of the bath d. Walking between Moderate difficulty rooms e. Putting on your A little bit of difficulty shoes or socks f. Squatting Quite a bit of difficulty g. Lifting an object A little bit of difficulty , like a bag of groceries from the floor h. Performing light Moderate difficulty activities around your home i. Performing heavy Quite a bit of difficulty activities around your home j. Getting into or Moderate difficulty out of a car k. Walking 2 blocks Extreme difficulty or unable to perform activity l. Walking a mile Extreme difficulty or unable to perform activity m. Going up or down Quite a bit of difficulty 10 stairs (about 1 flight of stairs) n. Standing for 1 Extreme difficulty or unable to perform activity hour o. Sitting for 1 No difficulty hour p. Running on even Extreme difficulty or unable to perform activity ground q. Running on uneven Extreme difficulty or unable to perform activity ground r. Making sharp Extreme difficulty or unable to perform activity turns while running fast s. Hopping Extreme difficulty or unable to perform activity t. Rolling over in No difficulty bed LEFI Score Lower Extremity 27 Functional Index Score Rehab Re-assessment Subjective Subjective Pt reports he continues to have pain in his L LE, but not as often as he did before. He has been ambulating without an AD for short distance at home. He wishes to continue to improve his balance in order to be ambulatory without an AD at all times. Objective Objective Notes AROM L knee: 0-115 deg MMT L LE: HIP FLEX 4-/5, HIP ABD 4-/5, KNEE EXT 4+/5, KNEE FLEX 4+/5 TU sec this date vs 30 sec on IE FxSTS: 21 sec this date Pain: 10 this date. Assessment Progress Assessment Progressing as Expected Assessment Notes Pt has shown significant improvements in overall strength of the L LE, dynamic standing balance, and gait pattern. He continues to have difficulty with pain in the L LE, especially in standing. Skilled therapy remains indicated in order to improve pt QOL by increasing functional endurance, improving gait pattern , increasing strength, and improving balance in standing. PT Patient Goals PT Short Term in 2 wks pt will: Patient Goals 1) Decrease L LE pain to 4/10 at worst 2) Improve TUG time to 17 sec or less 3) Increase L LE MMT to at least 4/5 throughout 4) Increase LEFS score to 30 or greater PT Usp Patient in 4 wks pt will: Goals 1) Decrease L LE pain to 2/10 at worst 2) Improve TUG time to 13 sec or less 3) Increase L LE MMT to 5/5 throughout 4) Ambulate > 50 with straight cane without loss of balance 5) Be Independent with all HEP 6) Increase LEFS score to 50 or greater Plan Plan Treatment will continue with the following possible treatments in order to improve functional mobility and pt QOL: Frequency of Therapy 2 x/wk Duration of Therapy 4 wks Therapeutic Exercise Yes Including Home Exercise Program Neuromuscular Re- Yes education Therapeutic Yes Activities to Return to Previous Functional/Work Level Gait Training Yes ADL/Self Care Yes Education Thermal Modalities Yes Electrical Yes Stimulation Massage Yes Eval/Re-Eval Yes Time and Billing Re-Eval Time 16 Re-Eval Billing 0 Units Charge for PT No reassessment? PHYSICIAN CERTIFICATION: I certify the specified therapy services for Christian Castorena are required, authorized, and reviewed every 30 days.
== END 2024-12-15 23:59 | disposition home or self-care (01) ==
LOC: PT 14:00
PROVIDERS: PCP Family Medicine; Visit Provider Family Medicine
DX: S72.409D Unspecified fracture of lower end of unspecified femur, subsequent encounter for closed fracture with routine healing (principal)
CPT/HCPCS: 97110; 97530

== ENCOUNTER 2024-12-17 11:35 | Emergency (ER) | payer MEDICARE, SELFPAY ==
--- OUTSIDE RECORDS SUMMARY | 2024-10-23 10:30 | XMS_ITS ---
Author Organization [facility] Address [address] [place] [phone] Care Team Providers Care Drafter Structural Name Role Phone Elfi Nugent Primary Care Provider Allergies No Known [...] Referral Priority Routine REASON FOR VISIT f/u [place] [facility] d/c following broken leg Medications Medication SIG [...] ly twice a day Active Vital Signs Weight 000 lbs 10/23/2024 Blood pressure systolic 120 mm Hg 10/24/19 25 Blood pressure diastolic 60 mm Hg 025 Heart Rate 100 /min 10/23/2024 Height 71.50 in 10/23/2024 Encounters Encounter Location Date Provider Diagnosis [facility] [facility] [address] [phone] 10/23/2024 Elif Nugent Closed fracture of distal [...] [address], [address], [place], [place], [phone], Progress Notes * ROHAN COWARTDOB:1960 (64 yo M)Acc No.[id number]:10/23/2024 Progress Notes Patient: ROHAN PUGH Provider: Elif Nugent M.D. :1960 A ge:63 Y S ex:Male Date:10/23/2024 Address:[address] [address], [place], [id number] Subjective: * Chief Complaints: * 1 . f/u [place] [facility] d/c following broken leg. * HPI: H PI: Patient is here today for a Transition of Care Visit. Discharge from the following Facility: admitted to [facility] on 09/25/2024 for Left distal femur fracture, left DISTAL femur periprosthetic (left knee replacement) fracture, with subsequent admission to [facility] , Discharge date: 09/29/2024 from [place] to [facility]. Discharged from [facility]: M onday 10/16/2024. Pt sts he [...] , left knee replacement surgery, Dr. Diaz, [facility] 09/05/2018, right knee replacement surgery, Dr. Diaz [facility] 12/05/2018, EGD with biopsy 11/2012, Revision of right knee replacement with Explant antibiotic spacer, Dr Stratton 07/16/22, Left periprosthetic femur fracture 09/25/24. * Hospitalization/Major Diagno stic Procedure: b lacked out at home and was taken to [facility] ER and admitted 10/2011, [facility] ER - fall/colitis 06/13/2019, [facility] ER - mikaela 04/2020. * Family [...] * Images: Billing Information: * Visit Code: 02159 Office Visit, Est Pt., Level 4. * Procedure Codes: 1111F DSCHR MED/CURENT MED MERGE. G2211 Complex e/m visit add on. G8783 BP SCR PRFRM RCMDD DEFIND SCR INTVL. G8752 MOST RECENT SYSTOLIC BP < 140MM HG. G8754 MOST RECENT DIASTOLIC BP < 90MM HG. * Electronic signature of Elif Nugent MD on 12/17/2024 at 12:07 PM EDT Sign off status: Pending * Provider: Elif Nugent M.D. Date: 0 10/23/2024 Generated for uLi palomo/Angelika/Swapnasmitting on: 0 12/17/2024 12:07 PM EDT History and Physical Notes * HPI (History of Present Illness) Category Sub-Category Detail Notes Category Not es HPI Patient is here today for a [facility] sition of Care Visit. Discharge from the following Facility: admitted to [facility] on 09/25/2024 for Left distal femur fracture, left DISTAL femur periprosthetic (left knee replacement) fracture, with subsequent admission to [facility] ,Discharge date: 09/29/2024 from [place] to [facility]. Discharged from [facility]: Wednesday10/16/2024. Pt sts he is still [...]
--- OUTSIDE RECORDS SUMMARY | 2024-11-13 11:45 | XMS_ITS ---
Author Organization [facility] Address [address] [place] [phone] Care Team Providers Care Principal Archaeologist Name Role Phone Elif Nugent Primary Care Provider [phone] Allergies No Known Allergies Results Component Value [...] 11/13/2024 Encounters Encounter Location Date Provider Diagnosis [facility] [facility] [address] [phone] 11/13/2024 Elif Nugent Status post revision of [...] [address], [place], [place], [id number], Progress Notes * ROHAN COWARTDOB:1960 (64 yo M)Acc No.[id number]:11/13/2024 Progress Notes Patient: LUIS MANUEL PUGHER Provider: Elif Nugent M.D. :1960 A ge:63 Y S ex:Male Date:11/13/2024 Address:[address] [address], [place] Subjective: * Chief Complaints: * 1 . [...] knee replacement surgery, Dr. Diaz, [facility] 09/05/2018, right knee replacement surgery, Dr. Diaz [facility] 12/05/2018, EGD with biopsy 11/2012, Revision of right knee replacement with Explant antibiotic spacer, Dr Stratton 07/16/22, Left periprosthetic femur fracture 09/25/24. * Hospitalization/Major Diagno stic Procedure: b lacked out at home and was taken to [facility] ER and admitted 10/2011, [facility] ER - fall/colitis 06/13/2019, [facility] ER - mikaela 04/2020. * Family [...] ther chronic pain - G89.29 ?6. B AK 25.0-25.9,adult - Z68.25 Plan: * Treatment: Value [...] G 2211 Complex e/[place], [address] CBC WITH AUTO DIFF, 46912 VENIPUNCT, ROUTINE*, G8420 BMI<30 AND >=22 CALC & DOCU, G8783 BP SCR PRFRM RCMDD DEFIND SCR INTVL, G8752 MOST RECENT SYSTOLIC BP < 140MM HG, G8754 MOST RECENT DIASTOLIC BP < 90MM HG * Follow Up: 2 Months * Images: Billing Information: * Visit Code: 92130 Office Visit, Est Pt., Level 4. * Procedure Codes: G2211 Complex e/[place]. [address] CBC WITH AUTO DIFF. 60765 VENIPUNCT, ROUTINE*. G8420 BMI<30 AND >=22 CALC & DOCU. G8783 BP SCR PRFRM RCMDD DEFIND SCR INTVL. G8752 MOST RECENT SYSTOLIC BP < 140MM HG. G8754 MOST RECENT DIASTOLIC BP < 90MM HG. * Electronic signature of Elif Nugent MD on 12/17/2024 at 12:06 PM EDT Sign off status: Pending * Provider: Elif Nugent M.D. Date: 11/13/2024 Generated for Lui palomo/Angelika/Dorianitting on: 12/17/2024 12:06 PM EDT History and Physical Notes * [...]
--- OUTSIDE RECORDS SUMMARY | 2024-11-30 10:45 | XMS_ITS ---
Author Organization [facility] Address [address] [facility] [address] [facility] [address] [place] [phone] Care Team Providers Care Manager Category Name Role Phone Elif Nugent Primary Care Provider [phone] Denisha Guan [phone] Allergies No Known Allergies REASON FOR VISIT 3 weeks Encounters Encounter Location Date Provider Diagnosis [facility] [address] [facility] [address] [facility] [address] [place] [id number] 11/30/2024 Denisha Guan Plan Of Treatment Next Appt Details Provider Name:Elif Zapata er, 01/15/2025 03:45:00 PM, [address] [facility] [address] [facility], [address], [place], [id number], Progress Notes * ROHAN COWARTDOB:1960 (64 yo M)Acc No.[id number]:11/30/2024 Progress Notes Patient: ROHAN PUGH Provider: CAT Degroot :1960 A ge:64 Y S ex:Male Date:11/30/2024 Address:[facility] [address] [facility] Pcp:Elif Nugent Subjective: * Chief Complaints: * [...] out at home and was taken to [facility] ER and admitted 10/2011, [facility] ER - fall/colitis 06/13/2019, [facility] ER - mikaela 04/2020. * Family [...] * Electronic signature of CAT Landry on 12/17/2024 at 12:06 PM EDT Sign off status: Pending * Provider: CAT Degroot Date: 11/30/2024 Generated for Lui palomo/Angelika/Dorianitting on: 12/17/2024 12:06 PM EDT
[2024-12-17] VITALS (11 sets, daily range): BP systolic 106–128; BP diastolic 50–69; PULSE 67–85; RESP 13–22; TEMP 36.8–36.9; O2SAT 95–97; BMI 23.7
--- OUTSIDE RECORDS SUMMARY | 2024-12-17 12:06 | XMS_ITS | Referral Summary ---
Author Organization [employer] ([place], [place], [place], [place]) Address [address] [place] [address] Care Team Providers Care Samples And Repairs Preparer Name Role Phone Dario Nugent MD Primary Care Provider [phone] Encounters Date Type Department Care Team Description 09/29/2024 Telephone [facility] [address] [place] [address] Dario Nugent MD Hospital Follow Up 09/25/2024 10:01 AM EDT - 09/29/2024 5:45 PM EDT Hospital Encounter [facility] [address] [place] [address] Moose Granda MD Quisenberry, Thomas, MD Siddiqi, Timmynmpatricia, DO Femur fracture, left (HCC) (Primary Dx) Discharge Disposition: Longterm Facility 09/26/2024 10:50 AM EDT Anesthesia Event [facility] [address] [place] [address] Yusra Fuller CRNA McDonald, Leah B, CRNA 09/26/2024 12:00 PM EDT - 09/26/2024 1:37 PM EDT Surgery [facility] [address] [place] [address] Chuy Johnson MD LEFT RETROGRADE [...] total) by mouth daily. 30 tablet 09/29/2024 Active Active Problems Problem Noted Date Diagnosed Date [...] speak a language other than Maori at [facility]? No 09/25/2024 Do you want help with [...] on file Medical Devices Implanted Type Area Turbine Assembler Device Identifier Shelf Expiration Date Model / Serial / Lot Scr Lckng 5.0x60 04.045.060ts - [id number] Implanted:Qty: 1 on 09/26/2024 by Chuy Johnson MD at [facility] IMPLANTS Left: Knee SYNTHES:SYNTHES [facility] 10/07/2028 04.045.060 TS / / [id number] Nail Rfna [id number] 10 Deg Bend 04.233.041s - [id number] Implanted:Qty: 1 on 09/26/2024 by Chuy Johnson MD at [facility] IMPLANTS Left: Knee SYNTHES:SYNTHES [facility] 06/09/2026 04.233.041 S / / [id number] Scr Lckng 5.0x36 Xl25 Strl 04.045.036ts - [id number] Implanted:Qty: 1 on 09/26/2024 by Chuy Johnson MD at [facility] IMPLANTS Left: Knee SYNTHES:SYNTHES [facility] 02/06/2029 04.045.036 TS / / [id number] End Cap Rfna 0mm Strl 04.233.000s - [id number] Implanted:Qty: 1 on 09/26/2024 by Chuy Johnson MD at [facility] IMPLANTS Left: Knee SYNTHES:SY[employer]THES [place] 03/09/2034 04.233.000 S / / [id number] Scr Sg 5.0x66mm 04.045.066ts - [id number] Implanted:Qty: 1 on 09/26/2024 by Chuy Johnson MD at [facility] IMPLANTS Left: Knee SYNTHES:[employer] [place] 04.045.066 TS / / N/A Scr Lckng 5.0x38 Xl25 Strl 04.045.038ts - [id number] Implanted:Qty: 1 on 09/26/2024 by Chuy Johnson MD at [facility] IMPLANTS Left: Knee SYNTHES:[employer] [place] 04.045.038 TS / / N/A Scr Sg For Im Nail 5/88/Xl25 04.045.088s - [id number] Implanted:Qty: 1 on 09/26/2024 by Chuy Johnson MD at [facility] IMPLANTS Left: Knee SYNTHES:SY[employer] [place] 04.045.088 [...] ANESTHESIA INTUBATION Routine 09/26/2024 10:58 AM EDT [place] OPTX FEM SHFT FX W/INSJ IMED IMPLT [...] of4 resultswithin the time period is included. Pathologist [facility] WBC 4.3 3.9 - 10.0 K/ L 09/29/2024 4:32 AM EDT [facility] RBC 2.43(L) 4.63 - 6.08 M/ L 09/29/2024 4:32 AM EDT [facility] Hemoglobin 9.5(L) 11.2 - 15.7 GM/DL 09/29/2024 4:32 AM EDT [facility] Hematocrit 28.0(L) 40.1 - 51.0 % 09/29/2024 4:32 AM EDT [facility] MCV 115(H) 79 - 95 fL 09/29/2024 4:32 AM EDT [facility] MCH 39.1(H) 25.6 - 32.2 pg 09/29/2024 4:32 AM EDT [facility] MCHC 33.9 32.3 - 36.5 GM/DL 09/29/2024 4:32 AM EDT [facility] RDW 12.7 11.6 - 14.4 % 09/29/2024 4:32 AM EDT [facility] Platelets 88(L) 163 - 369 K/CU MM 09/29/2024 4:32 AM EDT [facility] MPV 10.8 9.4 - 12.4 fL 09/29/2024 4:32 AM EDT [facility] % Neutros 61 34 - 68 % 09/29/2024 4:32 AM EDT [facility] % Lymphs 25 19 - 53 % 09/29/2024 4:32 AM EDT [facility] % Monos 9 4 - 13 % 09/29/2024 4:32 AM EDT [facility] % Eos 4 1 - 7 % 09/29/2024 4:32 AM EDT [facility] % Baso 1 0 - 1 % 09/29/2024 4:32 AM EDT [facility] # Neutros 2.62 1.56 - 6.13 K/ L 09/29/2024 4:32 AM EDT [facility] # Lymphs 1.08(L) 1.18 - 3.74 K/ L 09/29/2024 4:32 AM EDT [facility] # Monos 0.39 0.24 - 0.82 K/ L 09/29/2024 4:32 AM EDT [facility] # Eos 0.15 0.04 - 0.54 K/ L 09/29/2024 4:32 AM EDT [facility] # Baso 0.02 0.01 - 0.08 K/ L 09/29/2024 4:32 AM EDT [facility] Immature Granulocytes-Re lative 0.20 0.00 - 0.60 % 09/29/2024 4:32 AM EDT [facility] # IG 0.01 0.00 - 0.05 K/uL 09/29/2024 4:32 AM EDT [facility] Blood Venipuncture / Unknown 09/29/2024 4:19 AM EDT 09/29/2024 4:23 AM EDT Narrative [facility] - 09/29/2024 4:32 AM EDT [...] Stacy MD LAB BLOOD ORDERABLES Final Result [facility] [address] [phone] * (ABNORMAL) Comprehensive metabolic panel (09/29/2024 4:19 AM EDT) Only the most recent of3 resultswithin the time period is included. Sodium 133(L) 136 - 146 meq/L 09/29/2024 5:44 AM EDT [facility] Potassium 3.5 3.5 - 5.1 meq/L 09/29/2024 5:44 AM EDT [facility] Chloride 105 102 - 112 meq/L 09/29/2024 5:44 AM EDT [facility] CO2 22 21 - 32 meq/L 09/29/2024 5:44 AM EDT [facility] Calcium 7.8(L) 8.5 - 10.1 mg/dL 09/29/2024 5:44 AM EDT [facility] Glucose 89 74 - 106 mg/dL 09/29/2024 5:44 AM EDT [facility] BUN 8 7 - 22 mg/dL 09/29/2024 5:44 AM EDT [facility] Creatinine 1.03 0.70 - 1.30 mg/dL 09/29/2024 5:44 AM EDT [facility] BUN/Creatinine 8 8 - 20 09/29/2024 5:44 AM EDT [facility] Albumin 2.1(L) 3.4 - 5.0 g/dL 09/29/2024 5:44 AM EDT [facility] Alkaline Phosphatase 74 27 - 136 U/L 09/29/2024 5:44 AM EDT [facility] ALT 25 12 - 78 U/L 09/29/2024 5:44 AM EDT [facility] AST 29 5 - 37 U/L 09/29/2024 5:44 AM EDT [facility] Total Bilirubin 0.8 0.2 - 1.3 mg/dL 09/29/2024 5:44 AM EDT [facility] Protein, Total 5.9(L) 6.4 - 8.2 gm/dL 09/29/2024 5:44 AM EDT [facility] Anion Gap 10 9 - 20 09/29/2024 5:44 AM EDT [facility] A/G Ratio 0.6(L) 1.1 - 2.5 09/29/2024 5:44 AM EDT [facility] Globulin 3.8 1.5 - 4.5 g/dL 09/29/2024 5:44 AM T [facility] Osmolality Calc 264.2 mOsm/kg 5:44 AM [facility] eGFR (mL/min/1.73m2) >60 >=60 mL/min/1.7 3m2 09/29/2024 5:44 AM T [facility] Comment:ESTIMATED GFR IS NOT ACCURATE CREATININE CLEARANCE IN PREDICTING GLOMERULAR FILTRATION RATE. ESTIMATED GFR IS NOT APPLICABLE FOR DIALYSIS PATIENTS. Blood Venipuncture / Unknown 09/29/2024 4:19 AM EDT 09/29/2024 4:23 AM EDT us Johnny Stacy MD LAB BLOOD ORDERABLES Final Result [facility] [address] [employer] [address] [phone] * PT/INR, PTT (09/27/2024 4:22 AM EDT) aPTT 28.1 22.0 - 32.0 seconds 09/27/2024 5:38 AM EDT [facility] Protime 10.9 9.0 - 12.0 seconds 09/27/2024 5:38 AM EDT [facility] INR 1.00 0.80 - 1.10 09/27/2024 5:38 AM EDT [facility] Blood Venipuncture / Unknown 09/27/2024 4:22 AM EDT 09/27/2024 5:14 AM EDT us Johnny Stacy MD LAB BLOOD ORDERABLES Final Result Performing Organization Address [facility]/ZIP Co de Phone Number [facility] [address] [phone] * Ammonia (09/27/2024 4:22 AM EDT) Ammonia 22 11 - 32 mol/L 09/27/2024 6:00 AM EDT [facility] Blood Venipuncture / Unknown 09/27/2024 4:22 AM EDT 09/27/2024 5:16 AM EDT us Johnny Stacy MD LAB BLOOD ORDERABLES Final Result Performing Organization Address City/[facility]/ZIP Co de Phone Number [facility] [address] [phone] * US abdomen limited (09/26/2024 4:30 PM [...] electronically signed by Favian Terrell MD Voice car carder technology (ZEturfe) is used for the dictation of this note and sound-alike words might be erroneously placed despite reviewing this note for accuracy. Errors in dictation may reflect use of voice recognition software and not all errors in car carder may have been detected prior to signing. [...] electronically signed by Favian Terrell MD Voice car carder technology (Power Scribe) is used for the dictation of this note and sound-alike words might be erroneously placed despite reviewing this note for accuracy. Errors in dictation may reflect use of voice recognition software and not all errors in car carder may have been detected prior to signing. [...] by Dr. Leisa Garrido. Transcribed by Jessica iPerre PA-C. Narrative 09/26/2024 2:16 PM EDT LEFT [...] Leisa Garrido. Transcribed by Jessica Pierre PA-C. us Chuy Johnson MD G DIAGNOSTIC IMAGING ORDERABLE S Final Result * [...] laryngoscopy Endotracheal tube insertion site: oral Blade: Oahn Blade size: #3 ETT size (mm): 7.5 Cormack-Lehane Classification: grade I - full view of glottis Placement verified by: chest auscultation and capnometry Measured from: lips ETT to lips (cm): 23 Number of attempts at approach: 1 Number of other approaches attempted: 0 June Moser LAY OUT CARPENTER ANESTHESIA ORDERABLES Final Result * Magnesium (09/26/2024 2:42 AM EDT) [facility] Magnesium 1.8 1.5 - 2.4 mg/dL 09/26/2024 3:44 AM EDT [facility] Blood Venipuncture / Unknown 09/26/2024 2:42 AM EDT 09/26/2024 2:45 AM EDT Moose Granda MD LAB BLOOD ORDERABLES Final Resul t Performing Organization Address [facility] Co de Phone Number [facility] [address] [phone] * Vitamin B12 (09/26/2024 2:42 AM EDT) [facility] Vitamin B12 285 193 - 986 pg/mL 09/26/2024 3:44 AM EDT [facility] Blood Venipuncture / Unknown 09/26/2024 2:42 AM EDT 09/26/2024 2:45 AM EDT Moose Granda MD LAB BLOOD ORDERABLES Final Resul t Performing Organization Address City/[facility] Co de Phone Number [facility] [address] [phone] * (ABNORMAL) Basic Metabolic Panel (09/26/2024 2:42 AM EDT) [facility] Sodium 133(L) 136 - 146 meq/L 09/26/2024 3:44 AM EDT [facility] Potassium 4.1 3.5 - 5.1 meq/L 09/26/2024 3:44 AM EDT [facility] Chloride 102 102 - 112 meq/L 09/26/2024 3:44 AM EDT [facility] CO2 25 21 - 32 meq/L 09/26/2024 3:44 AM EDT [facility] Anion Gap 10 9 - 20 09/26/2024 3:44 AM EDT [facility] BUN 9 7 - 22 mg/dL 09/26/2024 3:44 AM EDT [facility] Creatinine 1.21 0.70 - 1.30 mg/dL 09/26/2024 3:44 AM EDT [facility] BUN/Creatinine 7(L) 8 - 20 09/26/2024 3:44 AM EDT [facility] Glucose 84 74 - 106 mg/dL 09/26/2024 3:44 AM EDT [facility] Calcium 8.8 8.5 - 10.1 mg/dL 09/26/2024 3:44 AM EDT [facility] Osmolality Calc 264.3 mOsm/kg 3:44 AM EDT [facility] eGFR (mL/min/1.73m2) >60 >=60 mL/min/1.7 3m2 09/26/2024 3:44 AM EDT [facility] Comment:eGFR of <60 suggests chronic kidney disease if found over a 3 month period of time. eGFR <15 indicates renal failure. Blood Venipuncture / Unknown 09/26/2024 2:42 AM EDT 09/26/2024 2:45 AM EDT Moose Granda MD LAB BLOOD ORDERABLES Final Resul t Performing Organization Address City/State/[facility] Co de Phone Number [facility] [address] [phone] * ECG 12 lead (09/25/2024 3:12 PM EDT) VENTRICULAR RATE EKG/MIN 87 BPM GE MUSE ATRIAL RATE (MCT) 87 BPM GE MUSE [place] Interval 122 ms GE MUSE QRS-INTERVAL (MSEC) 80 ms GE MUSE QT Interval 364 ms GE MUSE QTC Interval 438 ms GE MUSE P [facility] 30 degrees GE MUSE R AXIS (MCT) 44 degrees GE MUSE T Wave [facility] 41 degrees GE MUSE [place] Diagnosis Normal sinus rhythm Normal ECG No [...] Rudy Atkins. Transcribed by Berkley Chin PA-C. Result [facility] Moose Granda MD IMG DIAGNOSTIC IMAGING ORDERABLE S Final Result * EKG-SCANNED (09/25/2024) Narrative 09/25/2024 Ordered by an unspecified provider. Default Scanning Provider SCAN ORDERS Final Result from Last [address] [place] [place] [address] MEDICARE PPO Advance Directives For more information, please contact: [phone] * Full Code (Latest Code Status on File) Date Activated Date Inactivated Comments 09/25/2024 10:26 AM 09/29/2024 6:46 PM Healthcare Agents on File Name Relationship Healthcare Agent [facility] Communication Quynh De La Cruz Other Healthcare Decision-Maker Care Teams Samples And Repairs Preparer Relationship Specialty Start Date End Date Dario Nugent MD [address] [place] [address] PCP - General Family Medicine 09/25/24
--- OUTSIDE RECORDS SUMMARY | 2024-12-17 12:06 | XMS_ITS | Clinical Summary ---
Author Organization [facility] Address [address] [place] [address] Phone Care Team Providers Care Visor Installer Name Role Phone Immanuel ROONEY, Florina Garza Unavailable Conditions or Problems Problem Name Problem Code Onset Date Status Entry Date Provider Comment Standard Description Annotate Adverse drug reaction 14328115 (SNOMED CT) 09/29 Active 09/29 Dipesh Walker MD Adverse reaction to drug Eosinophilia , unspecified 548646816 (SNOMED CT) 09/29 Active 09/29 Dipesh Walker MD Eosinophil count above reference range Health advice, education, or counseling 177833042 (SNOMED CT) 08/04 Active 08/04 Ketan Rucker Procedure carried out on subject Thrombocytop enia 889483538 (SNOMED CT) 06/17 Active 06/17 Dipesh Walker MD Thrombocytopeni c disorder Leukopenia 40293660 (SNOMED CT) 06/17 Active 06/17 Dipesh Walker MD Leukopenia Hyperpigment ation of skin 81011583 (SNOMED CT) 06/17 Active 06/17 Dipesh Walker MD Hyperpigmentati on of skin Discoid lupus 087186439 (SNOMED CT) 01/21 Active 01/21 Ketan Rucker Discoid lupus erythematosus Hereditary or idiopathic neuropathy 100218053 (SNOMED CT) 09/18 Active 09/18 Ele Romano Neuropathy COPD 26294692 (SNOMED CT) 09/18 Active 09/18 Ele Romano Chronic obstructive pulmonary disease Smoking cessation counseling 250012892 (SNOMED CT) 05/21 Resolved 05/21 Ele Juan Antonio Procedure carried out on subject Adverse drug reaction 80647771 (SNOMED CT) 08/06 Resolved 08/06 Ele Juan Antonio Adverse reaction to drug Knee, right, subsequent encounter, infection/in flammatory reaction due to internal joint prosthesis T84.53xD (ICD-10-CM ) 05/19 Active 05/19 Ele Juan Antonio Infection and inflammatory reaction due to internal right knee prosthesis, subsequent encounter Myositis 24090880 (SNOMED CT) 08/06 Resolved 08/06 Ele Juan Antonio Myositis Nicotine dependence, cigarettes F17.210 (ICD-10-CM ) 05/21 Active 05/21 Ele Juan Antonio Nicotine dependence, cigarettes, uncomplicated Staphylococc al septic arthritis, right knee (identify type of staph) M00.061 (ICD-10-CM ) 06/25 Active 06/25 Ele Juan Antonio Staphylococcal arthritis, right knee Adverse drug reaction 82302920 (SNOMED CT) 08/06 Removed 08/06 Dipesh Walker MD Adverse reaction to drug Myositis 97939196 (SNOMED CT) 08/06 Removed 08/06 Dipesh Walker MD Myositis Staphylococc al infection 19525282 (SNOMED CT) 06/25 Active 06/25 Dipesh Walker MD Staphylococcal infectious disease Septic arthritis, right knee 15362585 (SNOMED CT) 06/25 Inactive 06/25 Dipesh Walker MD Bacterial arthritis Tobacco abuse 66727384 (SNOMED CT) 05/21 Inactive 05/21 Dipesh Walker MD Tobacco dependence syndrome Smoking cessation counseling 084109392 (SNOMED CT) 05/21 Removed 05/21 Dipesh Walker MD Procedure carried out on subject Effusion, right knee M25.461 (ICD-10-CM ) 05/19 Active 05/19 Ele Juan Antonio Effusion, right knee Benign Essential Hypertension 42167362 (SNOMED CT) 05/19 Active 05/19 Ele Romano Benign hypertension Knee, right, initial encounter(s) , infection/in flammatory reaction due to internal joint prosthesis T84.53xA (ICD-10-CM ) 05/19 Inactive 05/19 Ele Romano Infection and inflammatory reaction due to internal right knee prosthesis, initial encounter Cellulitis of RLE 867298585 (SNOMED CT) 05/19 Active 05/19 Ele Romano Cellulitis of lower limb Medications Medication Instructions Start Date Stop Date Generic Name NDC Provider HYDROXYCHLOROQUINE SULFATE 200 MG TABS 1 tab oral twice daily 06/17 hydroxychloroquine 46098448015 Ketan Rcuker MINOCYCLINE HCL 100 MG CAPS Take 1 capsule by mouth twice a day 01/21 minocycline 97017469162 Dipesh Walker MD DOXYCYCLINE HYCLATE 100 MG CAPS Take 1 capsule by mouth twice a day 09/24 doxycycline hyclate 28080819565 Dipesh Walker MD ASPIRIN EC 81 MG TBEC 1q12h aspirin 63730805328 [facility] DOXYCYCLINE MONOHYDRATE 100 MG CAPS 1bid doxycycline monohydrate 88374053584 Braden Bennett FOLIC ACID 1 MG TABS 1qd folic acid 42059929695 [facility] MELOXICAM 15 MG TABS 1qd,wm meloxicam 67854176940 [facility] ONDANSETRON HCL 4 MG TABS 1q6h,prn ondansetron hcl 72876142455 [facility] OXYCODONE HCL 5 MG TABS 1q4h,prn oxycodone 80856863973 [facility] PANTOPRAZOLE SODIUM 40 MG TBEC 1am pantoprazole 40529305492 [facility] TAMSULOSIN HCL 0.4 MG CAPS 1hs tamsulosin 85148932998 Braden Bennett TRAMADOL HCL 50 MG TABS 1q8h,prn tramadol 76306880526 Braden Linkenship VANCOMYCIN HCL IN NACL 1-0.9 GM/250ML-% SOLN Vancomycin 1.5GM IV Q24hrs at 9amStat labs prior to appt (ensure his appt and timing of dos coincide) 08/27 vancomycin in 0.9 % sodium chl 70297180992 Jennyfer Beasley VANCOMYCIN HCL IN NACL 1-0.9 GM/250ML-% SOLN Vancomycin 1.5GM IV Q24hrs at 9amStat labs prior to appt (ensure his appt and timing of dos coincide) 08/27 vancomycin in 0.9 % sodium chl 82295865464 Ileana Moon VANCOMYCIN HCL IN NACL 1-0.9 GM/250ML-% SOLN Vancomycin 1GM IV [id number] labs prior to appt (ensure his appt and timing of dos coincide) 08/11 vancomycin in 0.9 % sodium chl 69203797863 Elizabeth Romero RN LEVOFLOXACIN 500 MG TABS once a day levofloxacin 50406871601 Ileana Vasquezo r Tylenol unspecified unspecified 500 mg PRN acetaminophen 56587416838 Ileana Mi nor FOLIC ACID 0.8 MG CAPS once a day 1 mg folic acid 87215472077 Ileana Minor THIAMINE HCL 100 MG TABS 1 tab oral daily thiamine hcl (vitamin b1) 47905594017 Ketan Rucker FUROSEMIDE 40 MG TABS 1 tab oral daily furosemide 84648052297 Ketan Rucker ALBUTEROL SULFATE HFA 108 (90 Base) MCG/ACT AERS 2 puff inhale qid prn albuterol sulfate 54078252954 Ketan Rucker IBUPROFEN 800 MG TABS 1 tab oral 3 times daily ibuprofen 96708652502 Ketan Rucker PERIDEX 0.12 % SOLN 10ml oral 2 times a day chlorhexidine gluconate 28196050407 Ketan Rucker NIFEDIPINE ER 30 MG [id number] 1 tab oral daily nifedipine 33273631600 Ketan Rucker gabapentin 600 mg tablet extended release 24 hr 1 tab oral 3 times daily gabapentin Ketan Rucker HYDROXYCHLOROQUINE SULFATE 200 MG TABS 1 tab oral twice daily 11/07 hydroxychloroquine 32389012598 Ketan Rucker LORAZEPAM 0.5 MG TABS 1 tab oral 3 times daily lorazepam 61841371536 Ketan Rucker OMEPRAZOLE 20 MG CPDR 1 cap orally once daily omeprazole 81508668795 Ketan Rukcer Medications Administered No information available. Allergies, Adverse [...] Name Date Entry Date CPT-sl STAT Labs [id number] CBC with Differential 2023 CPT-61652 CMP CPT-62394 C- reactive protein CPT-00985 Sedimentation Rate (ESR) 08/11/27 CPT-sl STAT Labs CPT-sl STAT Labs CPT-sl STAT Labs CPT-sl STAT Labs CPT-33529 CMP [id number] CBC with Differential 2022 CPT-78134 C- reactive protein CPT-94807 Sedimentation Rate (ESR) 07/14/05 CPT-sl STAT Labs CPT-sl STAT Labs CPT-49365 CMP [id number] CBC with Differential 2022 CPT-75224 C- reactive protein CPT-33215 Vancomycin Trough CPT-sl STAT Labs CPT-sl STAT Labs CPT-72947 CMP [id number] CBC with Differential 2022 CPT-93679 C- reactive protein [id number], [id number] CPK CPT-81492 Sedimentation Rate (ESR) 202 07/12/03 CPT-98940 Vancomycin Trough CPT-sl STAT Labs CPT-sl STAT Labs CPT-79202 CMP CPT-05503 Sedimentation Rate (ESR) 202 07/09/11 CPT-21888 C- reactive protein [id number] CBC with Differential 2022 CPT-sl STAT Labs [...]
--- OUTSIDE RECORDS SUMMARY | 2024-12-17 12:06 | XMS_ITS | Clinical Summary ---
Author Organization [employer] ([place], [place], [place], [place]) Address [address] [place] [address] Care Team Providers Care [employer] Supervisor Name Role Phone Dario Nugent MD Primary Care Provider [phone] Allergies Active Allergy Reactions Criticality Noted Date [...] Type Department Care Team Description 09/29/2024 Telephone [facility] [address] [place] [address] Dario Nugent MD Hospital Follow Up 09/26/2024 12:00 PM EDT - 09/26/2024 1:37 PM EDT [facility] Surgery [facility] [address] [place] [address] Chuy Johnson MD LEFT RETROGRADE NAILING OF KNEE. 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 No 09/25/2024 Do you want [...] 1958 Sigmoidoscopy 1958 Depression Screening (12+) 1970 Hepatitis C Screening 1976 Respiratory Syncytial Virus (RSV) Adult or (1 - Risk 60-74 years 1-dose series) 2018 Pneumococcal 50+ years (2 of 2 - PCV) 04/30/2021, 06/06/2018 Shingles Vaccine (Zoster) (2 of 2) 07/31/20212021 Abdominal Aortic Aneurysm (A AA) Screen 11/26/2023 COVID-19 VACCINE ( season) 2024 03/05/2021, 08/02/2020, 07/04/2020 Falls Risk Screening 05/10/2024 Medicare IPPE (Welcome to [place]) G0402 09/07/2024 Influenza Vaccine (#1) 2025 , 02/17/2022, 04/17/2021 Tobacco Cessation Counseling and Screening (12+) 09/29/2025 09/29/2024 DTAP/TDAP/TD VACCINES (2 - T d or Tdap) 06/06/2028 06/06/2018 Medical Devices Implanted Type Area Agricultural Commodities Grader Device Identifier Shelf Expiration Date Model / Serial / Lot Scr Lckng 5.0x60 04.045.060ts - [id number] Implanted:Qty: 1 on 09/26/2024 by Chuy Johnson MD at [facility] IMPLANTS Left: Knee SYNTHES:[employer] [place] 10/07/2028 04.045.060 TS / / [id number] Nail Rfna [id number] 10 Deg Bend 04.233.041s - [id number] Implanted:Qty: 1 on 09/26/2024 by Chuy Johnson MD at [facility] IMPLANTS Left: Knee SYNTHES:[employer] [place] 06/09/2026 04.233.041 S / / [id number] Scr Lckng 5.0x36 Xl25 Strl 04.045.036ts - [id number] Implanted:Qty: 1 on 09/26/2024 by Chuy Johnson MD at [facility] IMPLANTS Left: Knee SYNTHES:[employer] [place] 02/06/2029 04.045.036 TS / / [id number] End Cap Rfna 0mm Strl 04.233.000s - [id number] Implanted:Qty: 1 on 09/26/2024 by Chuy Johnson MD at [facility] IMPLANTS Left: Knee SYNTHES:[employer] [place] 03/09/2034 04.233.000 S / / [id number] Scr Sg 5.0x66mm 04.045.066ts - [id number] Implanted:Qty: 1 on 09/26/2024 by Chuy Johnson MD at [facility] IMPLANTS Left: Knee SYNTHES:[employer] [place] 04.045.066 TS / / N/A Scr Lckng 5.0x38 Xl25 Strl 04.045.038ts - [id number] Implanted:Qty: 1 on 09/26/2024 by Chuy Johnson MD at [facility] IMPLANTS Left: Knee SYNTHES:[employer] [place] 04.045.038 TS / / N/A Scr Sg For Im Nail 5/88/Xl25 04.045.088s - [id number] Implanted:Qty: 1 on 09/26/2024 by Chuy Johnson MD at [facility] IMPLANTS Left: Knee SYNTHES:SYNTHES [employer] 045.088 S / / N/A Procedures Procedure Name [...] 10.0 K/ L 09/29/2024 4:32 AM EDT [facility] RBC 2.43(L) 4.63 - 6.08 M/ L 09/29/2024 4:32 AM EDT [facility] Hemoglobin 9.5(L) 11.2 - 15.7 GM/DL 09/29/2024 4:32 AM EDT [facility] Hematocrit 28.0(L) 40.1 - 51.0 % 09/29/2024 4:32 AM EDT [facility] MCV 115(H) 79 - 95 fL 09/29/2024 4:32 AM EDT [facility] MCH 39.1(H) 25.6 - 32.2 pg 09/29/2024 4:32 AM EDT [facility] MCHC 33.9 32.3 - 36.5 GM/DL 09/29/2024 4:32 AM EDT [facility] RDW 12.7 11.6 - 14.4 % 09/29/2024 4:32 AM EDT [facility] Platelets 88(L) 163 - 369 K/CU MM 09/29/2024 4:32 AM EDT [facility] MPV 10.8 9.4 - 12.4 fL 09/29/2024 4:32 AM EDT [facility] % Neutros 61 34 - 68 % 09/29/2024 4:32 AM EDT [facility] % Lymphs 25 19 - 53 % 09/29/2024 4:32 AM EDT [facility] % Monos 9 4 - 13 % 09/29/2024 4:32 AM EDT [facility] % Eos 4 1 - 7 % 09/29/2024 4:32 AM EDT [facility] % Baso 1 0 - 1 % 09/29/2024 4:32 AM EDT [facility] # Neutros 2.62 1.56 - 6.13 K/ L 09/29/2024 4:32 AM EDT [facility] # Lymphs 1.08(L) 1.18 - 3.74 K/ L 09/29/2024 4:32 AM EDT [facility] # Monos 0.39 0.24 - 0.82 K/ L 09/29/2024 4:32 AM EDT [facility] # Eos 0.15 0.04 - 0.54 K/ L 09/29/2024 4:32 AM EDT [facility] # Baso 0.02 0.01 - 0.08 K/ L 09/29/2024 4:32 AM EDT [facility] Immature Granulocytes-Re lative 0.20 0.00 - 0.60 % 09/29/2024 4:32 AM EDT [facility] # IG 0.01 0.00 - 0.05 K/uL 09/29/2024 4:32 AM EDT [facility] Blood Venipuncture / Unknown 09/29/2024 4:19 AM EDT 09/29/2024 4:23 AM EDT Narrative [facility] - 09/29/2024 4:32 AM EDT [...] Stacy MD LAB BLOOD ORDERABLES Final Result [facility] [address] [place] [address], [facility] [phone] * (ABNORMAL) Comprehensive metabolic panel (09/29/2024 4:19 AM EDT) Only the most recent of3 resultswithin the time period is included. Sodium 133(L) 136 - 146 meq/L 09/29/2024 5:44 AM EDT [facility] Potassium 3.5 3.5 - 5.1 meq/L 09/29/2024 5:44 AM EDT [facility] Chloride 105 102 - 112 meq/L 09/29/2024 5:44 AM EDT [facility] CO2 22 21 - 32 meq/L 09/29/2024 5:44 AM EDT [facility] Calcium 7.8(L) 8.5 - 10.1 mg/dL 09/29/2024 5:44 AM EDT [facility] Glucose 89 74 - 106 mg/dL 09/29/2024 5:44 AM EDT [facility] BUN 8 7 - 22 mg/dL 09/29/2024 5:44 AM EDT [facility] Creatinine 1.03 0.70 - 1.30 mg/dL 09/29/2024 5:44 AM EDT [facility] BUN/Creatinine 8 8 - 20 09/29/2024 5:44 AM EDT [facility] Albumin 2.1(L) 3.4 - 5.0 g/dL 09/29/2024 5:44 AM EDT [facility] Alkaline Phosphatase 74 27 - 136 U/L 09/29/2024 5:44 AM EDT [facility] ALT 25 12 - 78 U/L 09/29/2024 5:44 AM EDT [facility] AST 29 5 - 37 U/L 09/29/2024 5:44 AM EDT [facility] Total Bilirubin 0.8 0.2 - 1.3 mg/dL 09/29/2024 5:44 AM EDT [facility] Protein, Total 5.9(L) 6.4 - 8.2 gm/dL 09/29/2024 5:44 AM EDT [facility] Anion Gap 10 9 - 20 09/29/2024 5:44 AM EDT [facility] A/G Ratio 0.6(L) 1.1 - 2.5 09/29/2024 5:44 AM EDT [facility] Globulin 3.8 1.5 - 4.5 g/dL 09/29/2024 5:44 AM EDT [facility] Osmolality Calc 264.2 mOsm/kg 5:44 AM EDT [facility] eGFR (mL/min/1.73m2) >60 >=60 mL/min/1.7 3m2 09/29/2024 5:44 AM EDT [facility] Comment:ESTIMATED GFR IS NOT ACCURATE CREATININE CLEARANCE IN PREDICTING GLOMERULAR FILTRATION RATE. ESTIMATED GFR IS NOT APPLICABLE FOR DIALYSIS PATIENTS. Blood Venipuncture / Unknown 09/29/2024 4:19 AM EDT 09/29/2024 4:23 AM EDT Johnny Stacy MD LAB BLOOD ORDERABLES Final Result [facility] [address] [place] [address] * PT/INR, PTT (09/27/2024 4:22 AM EDT) aPTT 28.1 22.0 - 32.0 seconds 09/27/2024 5:38 AM EDT [facility] Protime 10.9 9.0 - 12.0 seconds 09/27/2024 5:38 AM EDT [facility] INR 1.00 0.80 - 1.10 09/27/2024 5:38 AM EDT [facility] Blood Venipuncture / Unknown 09/27/2024 4:22 AM EDT 09/27/2024 5:14 AM EDT Johnny Stacy MD LAB BLOOD ORDERABLES Final Result [facility] [address] [place] [address], [facility] [phone] * Ammonia (09/27/2024 4:22 AM EDT) Ammonia 22 11 - 32 mol/L 09/27/2024 6:00 AM EDT [facility] Blood Venipuncture / Unknown 09/27/2024 4:22 AM EDT 09/27/2024 5:16 AM EDT us Johnny Stacy MD LAB BLOOD ORDERABLES Final Result Performing Organization Address [facility] Co de Phone Number [facility] [address] [phone] * US abdomen limited (09/26/2024 4:30 PM [...] signed by Favian Terrell MD Voice field foreman technology ([employer]) is used for the dictation of this note and sound-alike words might be erroneously placed despite reviewing this note for accuracy. Errors in dictation may reflect use of voice recognition software and not all errors in field foreman may have been detected prior to signing. [...] signed by Favian Terrell MD Voice field foreman technology ([employer]) is used for the dictation of this note and sound-alike words might be erroneously placed despite reviewing this note for accuracy. Errors in dictation may reflect use of voice recognition software and not all errors in field foreman may have been detected prior to signing. Johnny Stacy MD [facility] ORDERABLES Final Re sult * XR FEMUR [...] The joint spaces appear unremarkable. Procedure Note Lui Garrido MD - 09/26/2024 LEFT FEMUR SERIES [...] Rudy Atkins. Transcribed by David Ledezma PA-C. Result [facility] Chuy Johnson MD IMG FLUOROSCOPY ORDERABLES Final [...] Number of other approaches attempted: 0 Result [facility] June Moser CRNA ANESTHESIA ORDERABLES Final Result * Magnesium (09/26/2024 2:42 AM EDT) Magnesium 1.8 1.5 - 2.4 mg/dL 09/26/2024 3:44 AM EDT [facility] Blood Venipuncture / Unknown 09/26/2024 2:42 AM EDT 09/26/2024 2:45 AM EDT Result [facility] Moose Granda MD LAB BLOOD ORDERABLES Final Resul t [facility] [address] [phone] * Vitamin B12 (09/26/2024 2:42 AM EDT) Vitamin B12 285 193 - 986 pg/mL 09/26/2024 3:44 AM EDT [facility] Blood Venipuncture / Unknown 09/26/2024 2:42 AM EDT 09/26/2024 2:45 AM EDT Moose Granda MD LAB BLOOD ORDERABLES Final Resul t [facility] [address] [phone] * (ABNORMAL) Basic Metabolic Panel (09/26/2024 2:42 AM EDT) Sodium 133(L) 136 - 146 meq/L 09/26/2024 3:44 AM EDT [facility] Potassium 4.1 3.5 - 5.1 meq/L 09/26/2024 3:44 AM EDT [facility] Chloride 102 102 - 112 meq/L 09/26/2024 3:44 AM EDT [facility] CO2 25 21 - 32 meq/L 09/26/2024 3:44 AM EDT [facility] Anion Gap 10 9 - 20 09/26/2024 3:44 AM EDT [facility] BUN 9 7 - 22 mg/dL 09/26/2024 3:44 AM EDT [facility] Creatinine 1.21 0.70 - 1.30 mg/dL 09/26/2024 3:44 AM EDT [facility] BUN/Creatinine 7(L) 8 - 20 09/26/2024 3:44 AM EDT [facility] Glucose 84 74 - 106 mg/dL 09/26/2024 3:44 AM EDT [facility] Calcium 8.8 8.5 - 10.1 mg/dL 09/26/2024 3:44 AM EDT [facility] Osmolality Calc 264.3 mOsm/kg 3:44 AM EDT [facility] eGFR (mL/min/1.73m2) >60 >=60 mL/min/1.7 3m2 09/26/2024 3:44 AM EDT [facility] Comment:eGFR of <60 suggests chronic kidney disease if found over a 3 month period of time. eGFR <15 indicates renal failure. Blood Venipuncture / Unknown 09/26/2024 2:42 AM EDT 09/26/2024 2:45 AM EDT Moose Granda MD LAB BLOOD ORDERABLES Final Resul t Performing Organization Address [facility]/ZIP Co de Phone Number [facility] [address] [phone] * ECG 12 lead (09/25/2024 3:12 PM EDT) VENTRICULAR RATE EKG/MIN 87 BPM GE MUSE ATRIAL RATE (MCT) 87 BPM GE MUSE IA Interval 122 ms GE MUSE QRS-INTERVAL (MSEC) 80 ms GE MUSE QT Interval 364 ms GE MUSE QTC Interval 438 ms GE MUSE P [place] 30 degrees GE MUSE R AXIS (MCT) 44 degrees GE MUSE T Wave [place] 41 degrees GE MUSE [place] Diagnosis Normal sinus rhythm Normal ECG No [...] Advance Directives For more information, please contact: [phone] * Full Code (Latest Code Status on File) Date Activated Date Inactivated Comments 09/25/2024 10:26 AM 09/29/2024 6:46 PM Healthcare Agents on File Name Relationship Healthcare Agent [facility] Mary De La Cruz Other Healthcare Decision-Maker Care Teams [employer] Supervisor Relationship Specialty Start Date End Date Dario Nugent MD [address] [place] [address] PCP - General Family Medicine 09/25/24
--- OUTSIDE RECORDS SUMMARY | 2024-12-17 12:06 | XMS_ITS | Clinical Summary ---
Author Organization [facility] Address [address] [place] [address] Care Team Providers Care Regional Operations Manager Name Role Phone Dario Nugent MD Primary Care Provider [phone] Allergies Active Allergy Reactions Criticality Noted Date Comments Diphenhydramine Other (See Comments) 07/14/2022 MAKES ME INCOHERENT AND LOOPY Hydrocodone-Acetaminophen Other (See Comments) Low 09/05/2018 It makes me out of my head Tramadol Dizziness Low 09/16/2022 Medications gabapentin (NEURONTIN) 600 MG tabletIndications :Neuropathic Pain Take 1 tablet by mouth 3 (Three) Times a Day. Indications: Neuropathic Pain 06/06/19 23 Active hydroxychloroquin e (PLAQUENIL) 200 MG tabletIndications :Systemic Lupus Erythematosus Take 1 tablet by mouth Every 12 (Twelve) Hours. Indications: Systemic Lupus Erythematosus 06/26/19 23 Active NIFEdipine XL (PROCARDIA XL) 30 MG 24 hr tablet Take 1 tablet by mouth Daily. 06/02/19 23 Active omeprazole (priLOSEC) 20 MG capsuleIndication s:Heartburn Take 1 capsule by mouth Daily. Indications: Heartburn 06/26/19 23 Active tamsulosin (FLOMAX) 0.4 MG capsule 24 hr capsule Take 1 capsule by mouth Daily. 30 capsule 07/22/19 23 Active ondansetron (Zofran) 4 MG tabletIndications :Nausea and Vomiting Take 1 tablet by mouth Every 8 (Eight) Hours As Needed for Nausea or Vomiting. 07/21/19 23 Active cholecalciferol (VITAMIN D3) 25 MCG (1000 UT) tabletIndications :Vitamin D Deficiency Take 1 tablet by mouth Daily. 07/22/19 Active Melatonin 3 MG capsuleIndication s:Insomnia Take 2 capsules by mouth Daily. Indications: Trouble Sleeping 08/06/19 Active loperamide (IMODIUM A-D) 2 MG tabletIndications :Diarrhea Take 1 tablet by mouth As Needed. Indications: Diarrhea 08/06/19 Active EPINEPHrine (EPIPEN) 0.3 MG/0.3ML solution auto-injector injection 08/04/19 Active naloxone (NARCAN) 4 MG/0.1ML nasal spray 07/30/19 Active ropivacaine (NAROPIN) 0.2 % infusion (INFUSYSTEM) 2 mg/hr by Peripheral Nerve route Continuous. 09/18/19 Active LORazepam (ATIVAN) 0.5 MG tabletIndications :Alcohol Withdrawal Syndrome Take 1 tablet by mouth 3 (Three) Times a Day As Needed for Anxiety. Indications: Alcohol Withdrawal Syndrome 09/18/19 Active docusate sodium (Colace) 100 MG capsule Take 1 capsule by mouth 2 (Two) Times a Day. 09/18/19 Active ondansetron (Zofran) 4 MG tablet Take 1 tablet by mouth Every 8 (Eight) Hours As Needed for Nausea or Vomiting. 09/18/19 Active traMADol (ULTRAM) 50 MG tabletIndications :S/P revision of total knee, right Take 1 tablet by mouth Every 6 (Six) Hours As Needed for Moderate Pain. 09/18/19 Active oxyCODONE (Roxicodone) 5 MG immediate release tabletIndications :S/P revision of total knee, right Take 1 tablet by mouth Every 4 (Four) Hours As Needed for Moderate Pain. 0 09/18/19 Active doxycycline (VIBRAMYCIN) 100 MG capsule Take 1 capsule by mouth 2 (Two) Times a Day. 60 capsule 2 09/18/19 Active Active Problems Problem Noted Date Diagnosed Date S/P revision of total knee, right, reimplantatio n 09/16/22 09/17/2022 Hyponatremia, mild asymptomatic 09/17/2022 Infection of total right knee replacement 2022 Anxiety 07/20/2022 S/P PICC central line placement 07/20/2022 Vitamin D deficiency 07/17/2022 History of Infection of right knee 07/16/2022 COPD (chronic obstructive pulmonary disease) 01/2023 HTN (hypertension) 07/16/2022 Lupus 07/16/2022 GERD (gastroesophageal reflux disease) Status post revision of tota l knee replacement, right( explant, antibiotic spacer placement) 07/16/22 07/16/2022 Overview (07/16/2022): REVISION RIGHT TOTAL KNEE ARTHROPLASTY, EXPLANT, PLACEMENT OF ANTIBIOTIC SPACER Daily consumption of alcohol 07/16/2022 Immunizations Immunization Administration Dates Next Due COVID-19 (MODERNA) 1st,2nd,3 rd Dose Monovalent 03/05/2021,08/02/2020,07/04/2020 Flu Vaccine Quad PF >36MO 03/15/2020 Fluzone (or Fluarix & Flulav al for VFC) >6mos 02/17/2022,04/17/2021 Influenza Injectable Mdck Pf Quad 02/17/2022,01/2021 Pneumococcal Polysaccharide (PPSV23) 04/30/2020, 06/06/2018 Shingrix 06/05/2021 Tdap 06/06/2018 Social History Tobacco Use Types Packs/Day Years Used Date Smoking Tobacco: Former Cigarettes Q uit: 06/16/2022 Smokeless Tobacco: Never Tobacco Cessation:Counseling Given: Not Answered Alcohol Use Standard Drinks/Week Comments Yes 42 (1 standard drink = 0.6 oz pu re alcohol) OASIS D0700: Social Isolation Answer Da te Recorded Frequency of experiencing loneliness or isolatio n Never 09/03/2022 OASIS A1250: Transportation Answer Date Recorded Lack of Transportation (Medical) No 09/03/2022 Lack of Transportation (Non-Medical) No 09/03/2022 Patient Unable or Declines to Respond No 09/03/2022 OASIS B1300: Health Literacy Answer Denton e Recorded Frequency of needing help to read materials from doctor or pharmacy Never 09/03/2022 AUDIT-C Answer Date Recorded Q1: How often do you have a drink containing alcohol? 4 or more times a week 09/17/2022 Q2: How many drinks containi ng alcohol do you have on a typical day when you are drinking? 5 or 6 Q3: How often do you have si x or more drinks on one occasion? Weekly 09/17/2022 Hunger Vital Sign Answer Date Recorded Within the past 12 months, y ou worried that your food would run out before you got the money to buy more. Never true 09/18/19 23 Within the past 12 months, t he food you bought just didn't last and you didn't have money to get more. Never true 09/17/2022 Abuse Screen Answer Date Recorded Unsafe at Home or Work/School Not on file Feels Threatened by Someone? Not on file Does Anyone Keep You from Co ntacting Others or Doint Things Outside the Home? Not on file 09/21/2023 Physical Sign of Abuse Present Not on file 0 09/21/2023 Housing Stability Answer Date Recorded Current Living Arrangements Not on file 09/07 Potentially Unsafe Housing Conditions Not on boogie e 09/21/2023 Family and Community Support Answer Denton e Recorded Help with Day-to-Day Activities Not on file 02/19/2023 Lonely or Isolated Not on file 02/19/2023 Employment Answer Date Recorded Do you want help finding or keeping work or a lorrie b? Not on file 02/19/2023 Disabilities Answer Date Recorded Concentrating, Remembering, or Making Decisions Difficulty Not on file 09/21/2023 Doing Errands Independently Difficulty Not on fi le 09/21/2023 Education Answer Date Recorded Help with school or training? Not on file Preferred Language Not on file 09/21/2023 Sex and Gender Information Value Date Recorded Sex Assigned at Not on file Legal Sex Male 4:33 PM EST Gender Identity Not on file Sexual Orientation Not on file Last Filed Vital Signs Vital Sign Reading Time Taken Comments Blood Pressure 120/68 09/17/2022 10:45 AM EDT Pulse 74 09/17/2022 10:45 AM EDT Temperature 36.3 C (97.4 F) 09/17/2022 10:45 AM EDT Respiratory Rate 16 09/17/2022 10:45 AM EDT Oxygen Saturation 97% 09/17/2022 10:45 AM EDT Inhaled Oxygen Concentration - - Weight 78.7 kg (173 lb 6.3 oz) 09/03/2022 9:05 A M EDT Height 185.4 cm (6' 1 ) 09/03/2022 9:05 AM EDT Body Mass Index 22.88 09/03/2022 9:05 AM EDT Plan of Treatment Health Maintenance Due Date Last Done Comments COLOGUARD 11/26/2003 COLON CANCER SCREENING 5 YEA R SIGMOIDOSCOPY 11/26/2003 COLONOSCOPY 11/26/2003 COLORECTAL CANCER SCREENING 11/26/2003 CT COLONOGRAPHY 11/26/2003 FECAL OCCULT BLOOD TEST 11/26/2003 FIT Testing (1 year) 11/26/2003 Pneumococcal Vaccine 50+ (2 of 2 - PCV) 04/30/2021 04/30/2020, 06/06/2018 ZOSTER VACCINE (2 of 2) 07/31/2021 06/05/2021 ANNUAL PHYSICAL 07/14/2022 HEPATITIS C SCREENING 07/14/2022 AAA SCREEN ONCE 11/26/2023 COVID-19 Vaccine (4 - 2023-2 5 season) 2024 03/05/2021, 08/02/2020, 07/04/2020 INFLUENZA VACCINE 02/07/2025 03/25/2023, , 02/17/2022, Additional history exists TDAP/TD VACCINES (2 - Td or Tdap) 06/06/2028 019 Medical Devices Implanted Type Area Surgical Training Specialist Device Identifier Shelf Expiration Date Model / Serial / Lot Dev Contrl Tiss Stratafix Spiral Pdo Bidir 1 27h63md - [id number] Implanted:Qty : 1 on 07/16/2022 by Gomez Stratton MD at [facility] Implant Right: Knee [employer] 08/07/2026 [id number] / / [id number] [facility] Bone Simplex/P Full Dose 10/Pk - [id number] Implanted:Qty : 1 on 07/16/2022 by Gomez Stratton MD at [facility] Implant Right: Knee CHUCK LILO 06/09/2024 [id number] / / [id number] [facility] Bone Simplex/P Full Dose 10/Pk - [id number] Implanted:Qty : 1 on 07/16/2022 by Gomez Stratton MD at [facility] Implant Right: Knee CHUCK LILO 10/07/2024 [id number] / / [id number] Cmt Bone Simplex/P Full Dose 10/Pk - [id number] Implanted:Qty : 1 on 07/16/2022 by Gomez Stratton MD at [facility] Implant Right: Knee CHUCK LILO 11/06/2024 [id number] / / [id number] Cmt Bone Simplex/P Full Dose 10/Pk - [id number] Implanted:Qty : 1 on 07/16/2022 by Gomez Stratton MD at [facility] Implant Right: Knee [employer] 11/06/2024 [id number] / / [id number] Insrt Tib/Kn Triathlon Condy/Stbl A/Poly Sz5 13mm - [id number] Implanted:Qty : 1 on 07/16/2022 by Gomez Stratton MD at [facility] Implant Right: Knee CHUCK L[employer]O 08/29/2025 [id number] / / [id number] Comp Fem Triath Cr No6 Rt - [id number] Implanted:Qty : 1 on 07/16/2022 by Gomez Stratton MD at [facility] Implant Right: Knee [employer] 03/09/2027 [id number] / / [id number] Cmt Bone Simplex/P Tmycin Fdos 10pk - [id number] Implanted:Qty : 1 on 09/16/2022 by Gomez Stratton MD at [facility] Implant Right: Knee CHUCK LILO [id number] 02/07/2024 [id number] / / [id number] Cmt Bone Simplex/P Tmycin Fdos 10pk - [id number] Implanted:Qty : 1 on 09/16/2022 by Gomez Stratton MD at [facility] Implant Right: Knee CHUCK [employer]O [id number] 12/08/2023 [id number] / / [id number] Cmt Bone Simplex/P Tmycin Fdos 10pk - [id number] Implanted:Qty : 1 on 09/16/2022 by Gomez Stratton MD at [facility] Implant Right: Knee CHUCK LILO 02/07/2024 [id number] / / [id number] Wax Bone Hemo Aesculap 2.5gm - [id number] Implanted:Qty : 1 on 09/16/2022 by Gomez Stratton MD at [facility] Implant Right: Knee [employer] [id number] 10/07/2026 [id number] / / [id number] Comp Fem Triath Ts Sz5 Rt - [id number] Implanted:Qty : 1 on 09/16/2022 by Gomez Stratton MD at [facility] Implant Right: Knee CHUCK LILO [id number] 02/03/2025 [id number] / / [id number] Aug Fem/Kn Triathlon Totlstbl Dist Sz5 10mm Rt - [id number] Implanted:Qty : 1 on 09/16/2022 by Gomez Stratton MD at [facility] Implant Right: Knee CHUCK [employer]ILO [id number] 06/08/2026 [id number] / / [id number] Baseplt Tib Triath Ts No4 - [id number] Implanted:Qty : 1 on 09/16/2022 by Gomez Stratton MD at [facility] Implant Right: Knee CHUCK [employer]O [id number] 02/26/2027 [id number] / / [id number] Aug Tib/Kn Triath /2blck Rm/Ll Sz 4 5mm - [id number] Implanted:Qty : 1 on 09/16/2022 by Gomez Stratton MD at [facility] Implant Right: Knee CHUCK LILO [id number] 01/05/2027 [id number] / / [id number] Aug Tib/Kn Triath 1/2blck Rl/Lm Sz4 5mm - [id number] Implanted:Qty : 1 on 09/16/2022 by Gomez Stratton MD at [facility] Implant Right: Knee CHUCK LILO [id number] 10/16/2026 [id number] / / [id number] Plug Bone Restr/Cmt W/Hndl Univ 30mm Lg - [id number] - [id number] Implanted:Qty : 1 on 09/16/2022 by Gomez Stratton MD at [facility] Implant Right: Knee CHUCK L[employer]O [id number] 06/09/2027 [id number] / [id number] / [id number] Aug Cone Tib/Kn Triathlon Rev Symm Szb - [id number] Implanted:Qty : 1 on 09/16/2022 by Gomez Stratton MD at [facility] Implant Right: Knee CHUCK LILO [id number] 12/21/2026 [id number] / / [id number] Stem Fem Triath Cmt 47o08ad - [id number] Implanted:Qty : 1 on 09/16/2022 by Gomez Stratton MD at [facility] Implant Right: Knee CHUCK [employer]ILO [id number] 07/13/2027 [id number] / / [id number] Ext Stem Triath Kn Totl Cocr Flut 40v38lg - [id number] Implanted:Qty : 1 on 09/16/2022 by Gomez Stratton MD at [facility] Implant Right: Knee CHUCK LILO [id number] 05/19/2027 [id number] / / [id number] Plug Bone Restr/Cmt W/Hndl Univ 24mm Md - [id number] - [id number] Implanted:Qty : 1 on 09/16/2022 by Gomez Stratton MD at [facility] Implant Right: Knee CHUCK LILO [id number] 05/14/2027 [id number] / [id number] / [id number] Aug Fem/Kn Triathlon Totlstbl Dist Sz5 10mm Rt - [id number] Implanted:Qty : 1 on 09/16/2022 by Gomez Startton MD at [facility] Implant Right: Knee CHUCK LILO [id number] 06/01/2027 [id number] / / [id number] Aug Fem/Kn Triathlon Post Sz5 10mm - [id number] Implanted:Qty : 1 on 09/16/2022 by Gomez Stratton MD at [facility] Implant Right: Knee CHUCK LILO [id number] 06/22/2027 [id number] / / [id number] Aug Fem/Kn Triathlon Post Sz5 10mm - [id number] Implanted:Qty : 1 on 09/16/2022 by Gomez Stratton MD at [facility] Implant Right: Knee CHUCK LILO [id number] 06/22/2027 [id number] / / [id number] Cone Aug Fem/Kn Triathlon Sm1dda5 Rt - [id number] Implanted:Qty : 1 on 09/16/2022 by Gomez Stratton MD at [facility] Implant Right: Knee CHUCK LILO [id number] 02/15/2027 [id number] / / [id number] Ext Stem Triath Kn Totl Cocr Flut 15n16pz - [id number] Implanted:Qty : 1 on 09/16/2022 by Gomez Stratton MD at [facility] Implant Right: Knee CHUCK LILO [id number] 05/18/2027 [id number] / / [id number] Stem Fem Triath Cmt 90t24ci - [id number] Implanted:Qty : 1 on 09/16/2022 by Gomez Stratton MD at [facility] Implant Right: Knee CHUCK LILO [id number] 05/31/2027 [id number] / / [id number] Insrt Tib Triath X3 Totl Stbl Sz4 13 - [id number] Implanted:Qty : 1 on 09/16/2022 by Gomez Stratton MD at [facility] Implant Right: Knee CHUCK LILO [id number] 12/03/2026 [id number] / / [id number] Dev Contrl Tiss Stratafix Spiral Pdo Bidir 1 69r31hm - [id number] Implanted:Qty : 1 on 09/16/2022 by Gomez Stratton MD at [facility] Implant Right: Knee [employer] [id number] 05/09/2027 [id number] / / [id number] Cmt Bone Simplex/P Tmycin Fdos 10pk - [id number] Implanted:Qty : 1 on 09/16/2022 by Gomez Stratton MD at [facility] Implant Right: Knee CHUCK LILO [id number] 02/07/2024 [id number] / / [id number] Insurance [facility] MEDICARE ADVANTAGE PPO Advance Directives * CPR (Attempt to Resuscitate) (Latest Code Status on File) Date Activated Date Inactivated Comments 09/16/2022 10:19 PM 09/17/2022 5:09 PM Question Answer Comments Code Status (Patient has no pulse and is not breathing): CPR (Attempt to Resuscitate) Medical Interventions (Patie nt has pulse or is breathing): Full Level Of Support Discussed With: Patient * CPR (Attempt to Resuscitate) Date Activated Date Inactivated Comments 08/06/2022 10:56 AM 09/16/2022 9:28 AM No physicia n signature needed for this code status. Dipesh as Signed. * CPR (Attempt to Resuscitate) Date Activated Date Inactivated Comments 07/16/2022 4:40 PM 07/20/2022 4:49 PM Question Answer Comments Code Status (Patient has no pulse and is not breathing): CPR (Attempt to Resuscitate) Medical Interventions (Patie nt has pulse or is breathing): Full Level Of Support Discussed With: Patient Care Teams Regional Operations Manager Relationship Specialty Start Date End Date Dario Nugent MD [address] [facility] [address] [place] [id number] PCP - General Family Medicine 07/14/22
--- OUTSIDE RECORDS SUMMARY | 2024-12-17 12:06 | XMS_ITS | Clinical Summary ---
Author Organization Healthcare Address [address] [place] [address] Care Team Providers Care Metal Leaf Layer Name Role Phone Dario Nugent MD Primary Care Provider [phone] Allergies Active Allergy Reactions Criticality Noted Date [...] EDT Emergency [facility] [address] [place] [address] Discharge Disposition: ED Dismiss - Never Arrived 09/25/2024 Orders Only External Location [address] [place] [address] Bonnie Mello MD 09/25/2024 Orders Only External Location [address] [place] [address] Provider, External from Last 3 [...] Screening 1960 [facility] Annual Wellness (AWV) 1960 [facility]-Infant/Child/Adol SDOH Screenings 1958 [facility]- SDOH Screenings 1976 [facility]Adult SDOH Screenings [address] Colonography 11/26/2003 Colonoscopy 11/26/2003 FIT-DNA 11/26/2003 FIT 11/26/2003 FOBT 11/26/2003 Sigmoidoscopy 11/26/2003 [facility]-Colorectal Cancer Screening 11/26/2003 [facility]-Pneumococcal Vaccine: 50 + Years (2 of 2 - PCV) 04/30/2021 04/30/2020, 06/06/2018 [facility]-Zoster Vaccines (2 of 2) 07/31/2021 06/05/2021 [id number] Vaccine (4 - 2023- season) 2024 03/05/2021, [...] from Last 3 Months Insurance [place] [address] Care Teams Metal Leaf Layer Relationship Specialty Start Date End Date Dario Nugent MD [address] [place] [address] PCP - General 09/20/20
--- OUTSIDE RECORDS SUMMARY | 2024-12-17 12:07 | XMS_ITS | Patient Health Record ---
Author Organization [facility] Address [address] [place] [id number] Care Team Providers Care Air Value Tester Name Role Phone Elif Nugent Primary Care Provider Carlos A Davidson Unavailable [phone] Denisha Guan Unavailable [phone] Allergies No Known Allergies Results Component Value [...] - 38 platlet 178 100 - 400 P-Basic Metabolic Panel (BMP ) Reviewed date:03/07/2024 05:05:46 PM Interpretation:co2- 19 Performing Lab: Notes/Report: Test performed by [facility] [address] [place] [address] , [address], [place] [address] Jordan Trammell MD, Filter Tank Tender CLIA: [id number] Sodium 135 135-145 mmol/L Potassium 4.4 3.5-5.3 [...] 74 Performing Lab: Notes/Report: Test performed by [facility] [address] [place] [address] , [address], [place] [address] Jordan Trammell MD, Filter Tank Tender CLIA: [id number] WBC 2.3 3.8-11.5 K/uL Red Blood Cell [...] Interpretation: Performing Lab: Notes/Report: Test performed by [facility] [address] [place] [address] , [place] [address] Jordan Trammell MD, Filter Tank Tender CLIA: [id number] Polychromasia Slight Macrocytosis Moderate Poikilocytosis Marked Anisocytosis Slight Cassia Cell Few Ovalocytes Few Tear Drop Cells [...] Vaccine Route Administration Date Status Comme nts COVID 19 Moderna Unknown 07/04/2020 Administered COVID 19 Moderna Unknown 08/02/2020 Administered COVID 19 Moderna Unknown 03/05/2021 Administered Fluzone PF Quad (6-35 months) Unknown 04/17/2021 Administered Fluzone PF Quad (6-35 months) Unknown 02/17/2022 Administered Fluzone PF Quad (6-35 months) Unknown 03/25/2023 Administered Fluzone Quad (6months&older) IM Intramuscular 03/15/2020 Administered PNEUMOVAX 23 VACCINE IM Intramuscular 06/06/2018 Administe red PNEUMOVAX 23 VACCINE Unknown 04/30/2020 Administered Shingrix Unknown 06/05/2021 Administered Tetanus Tdap-Adacel (over 7yrs) IM Intramuscular 06/06/2018 Administered Problems Problem Type SNOMED Code ICD [...] 11/13/2024 Encounters Encounter Location Date Provider Diagnosis [address] [id number] 03/02/2024 Elif Nugent Essential hypertensi on I10 ; Centrilobular emphysema J43.2 ; Benign prostatic hyperplasia without lower urinary tract symptoms N40.0 ; Status post right knee replacement Z96.651 ; 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 and Lupus erythematosus L93.0 [facility] [address] [id number] 06/02/2024 Elif Nugent Essential hypertensi on I10 ; Anxiety F41.9 ; Centrilobular emphysema J43.2 ; Status post left knee replacement Z96.652 ; Status post right knee replacement Z96.651 ; Lupus erythematosus L93.0 and Pharyngitis, unspecified etiology J02.[address] [id number] 10/23/2024 Elif Nugent Closed fracture of distal end of femur with routine healing, unspecified fracture morphology, unspecified laterality, subsequent encounter S72.409D ; Localized edema R60.0 and Systemic lupus erythematosus, unspecified SLE type, unspecified organ involvement status M32.9 [facility] [address] [id number] 11/13/2024 Elif Nugent 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 ; Lupus erythematosus L93.0 ; Other chronic pain G89.29 ; Anxiety F41.9 ; Other chronic pain G89.29 and BMI 25.0-25.9,adult Z68.25 [facility] [address] [place], [place] [id number] 12/20/2023 Carlos A [place] Anxiety F41.9 [facility] [address] [place], [place] [id number] 12/29/2023 J Cosme Nugent [facility] [address] [place], [place] [id number] 01/12/2024 J Cosme Nugent Other chronic pain G89.29 [facility] [address] [place], [place] [id number] 01/20/2024 J Cosme Nugent Anxiety F41.9 [facility] [address] [place], [place] [id number] 03/07/2024 J Cosme Nugent [facility] [address] [place], [place] [id number] 04/28/2024 Carlos A [place] Anxiety F41.9 [facility] [address] [place], [place] [id number] 05/30/2024 J Cosme Nugent Anxiety F41.9 [facility] [address] [place], [place] [id number] 06/02/2024 J Cosme Nugent [facility] [address] [place], [place] [id number] 08/04/2024 J Cosme Nugent Anxiety F41.9 [facility] [address] [place], [place] [id number] 08/21/2024 J Cosme Nugent [facility] [address] [place], [place] [id number] 09/26/2024 J Cosme Nugent [facility] [address] [place], [place] [id number] 09/29/2024 J Cosme Nugent [facility] [address] [place], [place] [id number] 10/24/2024 J Cosme Nugent [facility] [address] [place], [place] [id number] 10/26/2024 Elif [facility] [address] [place], [place] [id number] 10/26/2024 Elif Nugent [facility] [address] [place], [place] [id number] 10/31/2024 Elif Nugent [facility] [address] [place], [place] [id number] 11/09/2024 Elif [facility] [address] [place], [place] [id number] 12/04/2024 Elif Nugent Assessments Encounter Date Diagnosis (ICD Code) Assessment Notes Treatment Notes Treatment Clinical Notes Section Notes 12/20/2023 Anxiety (ICD-10 - F41.9) 01/12/2024 Other chronic pain (ICD-10 - G89.29) 01/20/2024 Anxiety (ICD-10 - F41.9) 03/02/2024 Essential hypertension (ICD-10 - I10) 03/02/2024 Centrilobular emphysema (ICD-10 - J43.2) 04/28/2024 Anxiety (ICD-10 - F41.9) 05/30/2024 Anxiety (ICD-10 - F41.9) 06/02/2024 Essential hypertension (ICD-10 - I10) 06/02/2024 Anxiety (ICD-10 - F41.9) 08/04/2024 Anxiety (ICD-10 - F41.9) 10/23/2024 Localized edema (ICD-10 - R60.0) 10/23/2024 Closed fracture of distal end of femur with routine healing, unspecified fracture morphology, unspecified laterality, subsequent encounter (ICD-10 - S72.409D) 11/13/2024 Lupus erythematosus (ICD-10 - L93.0) 11/13/2024 Status post revision of total replacement of right knee (ICD-10 - Z96.651) 11/13/2024 Other chronic pain (ICD-10 - G89.29) 10/23/2024 Systemic lupus erythematosus, unspecified SLE type, unspecified organ involvement status (ICD-10 - M32.9) 03/02/2024 Benign prostatic hyperplasia without lower urinary tract symptoms (ICD-10 - N40.0) 06/02/2024 Centrilobular emphysema (ICD-10 - J43.2) 03/02/2024 Status post right knee replacement (ICD-10 - Z96.651) 06/02/2024 Status post left knee replacement (ICD-10 - Z96.652) 11/13/2024 Anxiety (ICD-10 - F41.9) 11/13/2024 Other chronic pain (ICD-10 - G89.29) 06/02/2024 Status post right knee replacement (ICD-10 - Z96.651) 03/02/2024 Status post revision of total replacement of right knee (ICD-10 - Z96.651) 11/13/2024 BMI 25.0-25.9,adult (ICD-10 - Z68.25) 06/02/2024 Lupus erythematosus (ICD-10 - L93.0) 03/02/2024 Lupus erythematosus (ICD-10 - L93.0) 06/02/2024 Pharyngitis, unspecified etiology (ICD-10 - J02.9) 10/23/2024 Other Discharge summary with available lab/diagnostic imaging results obtained and reviewed. Discharge medication list reconciled. Appropriate counseling provided. Moderate Complexity Plan Of Treatment Pending Test Test Name Order Date CP-CMP 05/06/2020 P-Comprehensive Metabolic Panel (CMP) P-[facility] 05/17/2023 Next Appt Details Provider Name:Elif Zapata er, 01/15/2025 03:45:00 PM, [address], [place], [place], [id number], Insurance Providers Payer Name Payer Address Payer Phone Subscriber Number Group Number Insured Name Patient Relationship to Insured Coverage Start Date Coverage End Date [employer] (MEDICAR E) [address] [address] [place] [phone] [id number] ROHAN COWART Self - patient is the insured Medications Administered Medication Instructions Date of Administration Dosage Notes Dexamethasone 05/21/2010 1 mL Medical (General) History Medical History History ICD Code lupus Raynaud's phenomenon neuropathy COPD 03/21/18 EMG/NCV bilateral carpal tunnel , no radiculopathy or plexopathy Covid vaccine - Jun 2020, Moderna COVID 19, Moderna booster, Jan 2021 Flu shot 2020 Surgical History Surgery Date(Month/Year) sinus surgery left knee replacement surgery, Dr. Jose clarke, [facility] 09/05/2018 right knee replacement surgery, Dr. Sree wisdom [facility] 12/05/2018 EGD with biopsy 11/2012 Revision of right knee repla cement with Explant antibiotic spacer, Dr Stratton 07/16/22 Left periprosthetic femur fracture Hospitalization History Reason Date(Month/[facility] mikaela 04/2020 [facility] ER - fall/colitis 06/13/2019 blacked out at home and was taken to [facility] ER and admitted 10/2011
--- NOTE | 2024-12-17 12:24 | CT_ITS ---
PROCEDURE INFORMATION: Exam: CT Abdomen And Pelvis With Contrast Exam date and time: 12/17/2024 12:50 PM Age: 64 years old Clinical indication: Other: Right lateral rib pain TECHNIQUE: Imaging protocol: Computed tomography of the abdomen and pelvis with contrast. Radiation optimization: All CT scans at this facility use at least one of these dose optimization techniques: automated exposure control; mA and/or kV adjustment per patient size (includes targeted exams where dose is matched to clinical indication); or iterative reconstruction. Contrast material: ISOVUE; Contrast volume: 75 ml; Contrast route: IV; COMPARISON: CT ABDOMEN PELVIS W CON 06/13/2019 11:28 AM FINDINGS: Lungs: Lung bases reported with dedicated CT chest. Liver: Mild fatty liver. Scattered low-attenuation liver lesions with the largest measuring 13 mm, unchanged and statistically simple cysts. Gallbladder and biliary ducts: Normal. No calcified stones. No ductal dilation. Pancreas: Normal. No ductal dilation. Spleen: Normal. No splenomegaly. Adrenal glands: Normal. No mass. Kidneys and ureters: Bilateral kidney cortical thinning. Simple appearing left kidney cysts with the largest measuring 1.4 cm. Stomach and bowel: Colonic diverticulosis. No bowel dilation. No bowel wall thickening. Appendix: No evidence of appendicitis. Intraperitoneal space: Unremarkable. No free air. No significant fluid collection. Vasculature: Atherosclerosis. Lymph nodes: Unremarkable. No enlarged lymph nodes. Urinary bladder: Unremarkable as visualized. Reproductive: Unremarkable as visualized. Bones/joints: Nondisplaced acute nonsegmental fractures of the right lateral 8th, 9th and 10th ribs. Mildly displaced acute non segmental of the right posterolateral 11th rib. Multilevel old right rib fractures. Partially imaged left femoral intramedullary joe with interlocking screws. Soft tissues: Small fat containing umbilical hernia. IMPRESSION: Nondisplaced acute nonsegmental fractures of the right lateral 8th, 9th and 10th ribs. Mildly displaced acute non segmental of the right posterolateral 11th rib. COMMENTS: Consistent with the [employer]'s Incidental Findings Committee white paper (J Am Dong Radiol 2018): Any incidental renal lesion less than 1 cm or classified as too small to characterize, or any incidental cystic renal lesion characterized as simple-appearing, is likely benign. No follow-up imaging is recommended for these lesions per consensus recommendations based on imaging criteria.
--- NOTE | 2024-12-17 12:24 | CT_ITS ---
PROCEDURE INFORMATION: Exam: CT Chest Without Contrast; Diagnostic Exam date and time: 12/17/2024 12:47 PM Age: 64 years old Clinical indication: Other: Right lateral rib pain TECHNIQUE: Imaging protocol: Diagnostic computed tomography of the chest without contrast. Radiation optimization: All CT scans at this facility use at least one of these dose optimization techniques: automated exposure control; mA and/or kV adjustment per patient size (includes targeted exams where dose is matched to clinical indication); or iterative reconstruction. COMPARISON: CT LUNG SCREENING 01/03/2024 3:22 PM FINDINGS: Lungs: Mild centrilobular emphysema. Mild atelectasis in the lower lobes. 7 x 4 mm noncalcified right upper lobe pulmonary nodule (series 3, images 20-22). Calcified right upper lobe granuloma. Pleural spaces: Trace right pleural effusion. Heart: Unremarkable. No cardiomegaly. No pericardial effusion. Coronary arteries: Coronary artery atherosclerosis. Lymph nodes: Unremarkable. No enlarged lymph nodes. Vasculature: Aortic atherosclerosis. Supra-aortic great vessel atherosclerosis. Bones/joints: Osteopenia. Degenerative changes of the spine. Nondisplaced acute nonsegmental fractures of the right lateral 8th, 9th and 10th ribs. Mildly displaced acute non segmental of the right posterolateral 11th rib. Multilevel old right rib fractures. Soft tissues: Unremarkable. IMPRESSION: 1. Nondisplaced acute nonsegmental fractures of the right lateral 8th, 9th and 10th ribs. Mildly displaced acute non segmental of the right posterolateral 11th rib. 2. Trace right pleural effusion. 3. 7 x 4 mm noncalcified right upper lobe pulmonary nodule. Fleischner Society follow up recommendations for incidental nodules are not indicated. Follow up per the patient's medical condition. 4. Atherosclerosis, including the coronary arteries. 5. Additional chronic/nonemergent findings as detailed above. COMMENTS: The presence of pulmonary emphysema on CT is an independent risk factor for lung cancer. In the absence of a history or active diagnosis of lung cancer, it is recommended that this patient with emphysema be evaluated for enrollment in a low dose CT lung cancer screening program.
--- NOTE | 2024-12-17 12:24 | ED_ITS ---
Discharge Plan Disposition Patient Disposition: Left Against Medical Advice Condition: Fair Prescriptions Prescriptions: New oxycodone 5 mg tablet 5 mg PO Q6H PRN (Reason: pain) Qty: 12 0RF No Action omeprazole 20 mg capsule,delayed release(DR/EC) 20 mg PO DAILY Patient Comments: TAKE 1 CAPSULE BY MOUTH ONCE DAILY furosemide 40 mg tablet 40 mg PO DAILY lorazepam 0.5 mg tablet 0.5 mg PO TID PRN (Reason: Anxiety) Patient Comments: TAKE 1 TABLET BY MOUTH THREE TIMES DAILY ibuprofen 800 mg tablet 800 mg PO Q8H PRN (Reason: Pain) gabapentin 600 mg tablet 600 mg PO TID nifedipine [Procardia XL] 30 mg tablet extended release 24hr 30 mg PO DAILY Qty: 30 2RF hydroxychloroquine 200 MG tablet 200 mg PO DAILY Referrals Follow up/Referrals: Jovita Nugent MD [Primary Care Provider, Medical] - See instructions Activity Restrictions/Add. Instructions Additional Instructions/Restrictions: You were seen for multiple rib fractures. You also had low sodium, WBC, platelets and RBC count which should be evaluated by your doctor. It has been recommended that you stay in the hospital for monitoring. Since you have signed out against medical advice, use your incentive spirometer every hour. Clinical Impressions Clinical Impression: Closed fracture of multiple ribs Instructions Patient Instructions: DI for Rib Fracture Print Language Print Language: Malay Discharge ED Provider: Alan Jackson Adult HPI <CAT Tate - Last Filed: 12/17/24 15:18> General Chief complaint: Fall Stated complaint: A-O-12/15/24 rt side pain Time Seen by Provider: 12/17/24 12:01 Mode of Arrival: Ambulatory Source of Information: Patient and Relative Description of Symptoms (Recalled from ER Triage Doc. by RN): patient present to the emergency room today for evaluation after a fall. alysha stated he fell at home deejay night trying to use the bathroom. he did state that he hit his head, but did not lose consciousness. he stated he landed on his right side, and endorses right rib/flank pain. he states his pain is a 10/10. History of Present Illness HPI narrative: Patient presents with right sided rib pain. He reports that on Wednesday he was attempting to sit down on the toilet and fell hitting his head and ribs. He recently had a left femur fracture 10 weeks ago, denies any increased pain in this area. He denies any loss of consciousness. Denies taking any blood thinners. Denies any head or neck pain. He denies any bruising to the ribs. Denies cough or fever. MD complaint: fall, rib injury Onset (ago): day(s) (2) Location: head and right (ribs) Radiation: non-radiation Severity: moderate Consistency: constant Relieving factors: none Exacerbating factors: none Associated symptoms: denies other symptoms Related Data Home Medications ?Medication ?Instructions ?Recorded ?Confirmed hydroxychloroquine 200 mg tablet 200 mg PO DAILY lupus 10/11/17 08/18/24 furosemide 40 mg tablet 40 mg PO DAILY 08/14/2008/08 gabapentin 600 mg tablet 600 mg PO TID 08/14/2008/18 ibuprofen 800 mg tablet 800 mg PO Q8H PRN Pain 08/1408/18/24 lorazepam 0.5 mg tablet 0.5 mg PO TID PRN Anxiety 08/18/24 omeprazole 20 mg capsule,delayed 20 mg PO DAILY 08/18/24 release Previous Rx's ?Medication ?Instructions ?Recorded nifedipine 30 mg tablet,extended 30 mg PO DAILY #30 ta bs 08/14/20 release 24 hr (Procardia XL) oxycodone 5 mg tablet 5 mg PO Q6H PRN pain #12 tab s 12/17/24 Allergies Allergy/AdvReac Type Severity Reaction Status Date / Time No Known Allergies Allergy Verified 08/18/24 06:33 [facility] <CAT Tate - Last Filed: 12/17/24 15:18> [facility] Disclaimer: The information contained in this section may have been updated after the patient was seen, as this information can be updated by other users. Medical History Paraseptal emphysema History of smoking 30 or more pack years COPD (chronic obstructive pulmonary disease) Dyspnea on exertion Screening for lung cancer Pulmonary emphysema Tobacco abuse disorder Tobacco abuse counseling Smoking greater than 30 pack years Chest pain Palpitations Tobacco dependence syndrome Sinus tachycardia Gastroesophageal reflux disease CHF (congestive heart failure) COPD (chronic obstructive pulmonary disease) Dyspnea Surgical History History of arthroscopic knee surgery Family History Other Cancer Social History Smoking Status: Current every day smoker tobacco type: cigarettes alcohol intake: never counseling provided: none substance use type: denies use current occupational status: retired and other Travel in the last 8 weeks?: None caffeine: Yes Have you lived/traveled outside [place] in past 30 days?: No Contact w/someone who lives/traveled outside US past 30 days?: No Exposure to someone with infectious disease in past 14 days?: No Do you have a fever (greater than 100.4 F or 38 C)?: No Have you tested positive for COVID-19?: No Exposed to someone with COVID-19 in past 14 days?: No Do you have a sore throat?: No Do you have a cough?: No Do you have any weakness?: No Do you have any diarrhea?: No Are you experiencing any unusual bleeding?: No Do you have any muscle aches/pain?: No Do you have any abdominal pain?: No Are you experiencing loss of taste or smell?: No Other Medical History Have you received the Flu Vaccine for this season: No Have you received the Pneumonia Vaccine: Yes <CAT Tate - Last Filed: 12/17/24 15:18> ROS Obtained: Yes Systems reviewed as appropriate & no additional complaints except as documented Physical Exam <CAT Tate - Last Filed: 12/17/24 15:18> General General appearance: alert and in no apparent distress Head Head exam: atraumatic and normocephalic Eye Eye exam: Present normal appearance and EOMI ENT ENT exam: Present normal exam, normal oropharynx and TM's normal bilaterally Neck Neck exam: Present normal inspection and full ROM; Absent tenderness Chest Chest inspection: Present symmetric chest wall rise Respiratory Respiratory exam: Present normal lung sounds bilaterally; Absent wheezes or stridor Cardiovascular Cardiovascular exam: Present regular rate and normal rhythm; Absent systolic murmur Extremities Exam Extremities exam: Present full ROM Neurological Exam Neurological exam: Present alert, oriented X3 and CN II-XII intact; Absent motor sensory deficit Psychiatric Psychiatric exam: Present normal affect and normal mood Skin Skin exam: Present warm, dry and intact Medical Decision Making <CAT Tate - Last Filed: 12/17/24 15:18> Medical Records Screening: Per USPSTF and CDC recommendations, given the prevalence of disease in our region, it is our hospital?s policy to screen for HIV and viral Hepatitis for all patients aged 18 and over and those with ongoing risk factors. Raymond Inquiry Pt receiving controlled substance: Yes Raymond was queried for this patient: Yes Risks and benefits of using a controlled substance: were discussed with pt by me Vital Signs: 12/17/24 11:43 12/17/24 11:54 12/17/24 12:30 Temperature 98.2 F Temperature Source Oral Pulse Rate 73 Pulse Rate [Right Radial] 85 Respiratory Rate 16 18 Blood Pressure 124/50 L 107/63 L Blood Pressure [Right Arm] 119/66 Blood Pressure Mean [Right Arm] 83 Blood Pressure Source Blood Pressure Source [Right Arm] Automatic Cuff Blood Pressure Position Blood Pressure Position [Right Arm] Sitting 02 Sat by Pulse Oximetry 97 97 97 Oxygen Delivery Method Room Air Room Air Room Air 12/17/24 13:00 12/17/24 13:15 12/17/24 13:30 Temperature Temperature Source Pulse Rate Pulse Rate [Right Radial] Respiratory Rate 18 15 17 Blood Pressure 124/58 L 106/56 L 109/56 L Blood Pressure [Right Arm] Blood Pressure Mean [Right Arm] Blood Pressure Source Blood Pressure Source [Right Arm] Blood Pressure Position Blood Pressure Position [Right Arm] 02 Sat by Pulse Oximetry 97 95 Oxygen Delivery Method Room Air Room Air 12/17/24 13:45 12/17/24 14:00 12/17/24 14:15 Temperature Temperature Source Pulse Rate 67 Pulse Rate [Right Radial] Respiratory Rate 16 13 19 Blood Pressure 113/59 L 120/63 117/61 Blood Pressure [Right Arm] Blood Pressure Mean [Right Arm] Blood Pressure Source Blood Pressure Source [Right Arm] Blood Pressure Position Blood Pressure Position [Right Arm] 02 Sat by Pulse Oximetry 95 95 95 Oxygen Delivery Method Room Air Room Air 12/17/24 14:30 12/17/24 15:15 Temperature 98.4 F Temperature Source Oral Pulse Rate 69 67 Pulse Rate [Right Radial] Respiratory Rate 22 18 Blood Pressure 128/69 111/64 Blood Pressure [Right Arm] Blood Pressure Mean [Right Arm] Blood Pressure Source Automatic Cuff Blood Pressure Source [Right Arm] Blood Pressure Position Sitting Blood Pressure Position [Right Arm] 02 Sat by Pulse Oximetry 95 Oxygen Delivery Method Room Air Lab Data Lab Results 12/17/24 12:20: WBC 3.0 L, RBC 3.53 L, Hgb 12.9 L, Hct 37.0 L, MCV 104.8 H, MCH 36.5 H, MCHC 34.9, RDW 12.2, Plt Count 91 L, MPV 12.3 H, Neut % (Auto) 54.6, Lymph % (Auto) 31.8, Mccormick % (Auto) 10.3 H, Eos % (Auto) 2.3, Baso % (Auto) 1.0, Neut # (Auto) 1.7 L, Lymph # (Auto) 1.0, Mccormick # (Auto) 0.3, Eos # (Auto) 0.1, Baso # (Auto) 0.0, Sodium 129 L, Potassium 4.3, Chloride 100, Carbon Dioxide 18 L, Anion Gap 15.3 H, BUN 9, Creatinine 1.10, Estimated Creat Clear 76, Estimated GFR 67, Est GFR ( Amer) 81, Glucose 84, Calcium 8.8 12/17/24 12:20 12/17/24 12:20 Orders (Tests/Meds): ED MEDICATIONS Discontinued Medications Generic Name Dose Route Start Last Admin Trade Name Dennis PRN Reason Stop Dose Admin Hydrocodone Bitart/Acetaminophen 1 tab 12/17/24 13:50 12/17/24 13:56 Hydrocodone/Apap 5/325 Mg Tablet PO 12/17/24 13:51 1 tab ONCE ONE Administration Iopamidol 75 ml 12/17/24 12:47 12/17/24 12:50 Iopamidol-370 (76%);100ml Bottle IV 12/17/24 12:48 75 ml ONCE ONE Administration Sodium Chloride 10 ml 12/17/24 12:24 Sodium Chloride 0.9% 10ml Flush Syringe IV 01/16/25 12:23 NEEDED PRN Maintain IV Site Sodium Chloride 10 ml 12/17/24 12:47 12/17/24 12:48 Sodium Chloride 0.9% 10ml Syr (Rad Only) IV 12/17/24 12:48 10 ml ONCE ONE Administration ORDERS Category Date Time Status CT abdomen pelvis w con Stat Cat Scan 12/17/24 12:[address] chest wo con Stat Cat Scan 12/17/24 12:24 Completed BMP [Basic Metabolic Panel] Stat Lab 12/17/24 12:20 Completed CBC w/Auto Diff [Complete Blood Count Auto Diff] Stat Lab 12/17/24 12:20 Completed Medical Decision Narrative: In summary patient is a 64-year-old man who presents the emergency department for evaluation of rib pain. Patient is hemodynamically stable upon arrival, afebrile. Tenderness of the right lateral lower ribs. Differential diagnosis includes contusion, rib fracture, internal injury such as pneumothorax or liver injury. Initial workup will be conducted with labs, CT chest, CT abdomen pelvis. Initial inventions include [employer]. Initial workup reviewed by pr pancytopenia, hyponatremia, 4 rib fractures, 8-11 on the right side, 3 are nondisplaced and 1 is displaced. Upon repeat evaluation patient acceptable resolution of symptoms, he is able to use the incentive spirometer up to 1500- 1750. Given multiple rib fractures, age, pain level, absent cough it was advised that the patient be admitted for pulmonary toilet. Patient declines and signed out AMA. Advised use of incentive spirometer every hour. Return to the ER for any worsening. [place] head CT consider CT only for age over 65. Given that patient is 48 hours outside of injury I feel this is not necessary at this time. Nexus C- spine negative. <Alan Jackson MD - Last Filed: 12/17/24 22:13> Vital Signs: 12/17/24 11:43 12/17/24 11:54 12/17/24 12:30 Temperature 98.2 F Temperature Source Oral Pulse Rate 73 Pulse Rate [Right Radial] 85 Respiratory Rate 16 18 Blood Pressure 124/50 L 107/63 L Blood Pressure [Right Arm] 119/66 Blood Pressure Mean [Right Arm] 83 Blood Pressure Source Blood Pressure Source [Right Arm] Automatic Cuff Blood Pressure Position Blood Pressure Position [Right Arm] Sitting 02 Sat by Pulse Oximetry 97 97 97 Oxygen Delivery Method Room Air Room Air Room Air 12/17/24 13:00 12/17/24 13:15 12/17/24 13:30 Temperature Temperature Source Pulse Rate Pulse Rate [Right Radial] Respiratory Rate 18 15 17 Blood Pressure 124/58 L 106/56 L 109/56 L Blood Pressure [Right Arm] Blood Pressure Mean [Right Arm] Blood Pressure Source Blood Pressure Source [Right Arm] Blood Pressure Position Blood Pressure Position [Right Arm] 02 Sat by Pulse Oximetry 97 95 Oxygen Delivery Method Room Air Room Air 12/17/24 13:45 12/17/24 14:00 12/17/24 14:15 Temperature Temperature Source Pulse Rate 67 Pulse Rate [Right Radial] Respiratory Rate 16 13 19 Blood Pressure 113/59 L 120/63 117/61 Blood Pressure [Right Arm] Blood Pressure Mean [Right Arm] Blood Pressure Source Blood Pressure Source [Right Arm] Blood Pressure Position Blood Pressure Position [Right Arm] 02 Sat by Pulse Oximetry 95 95 95 Oxygen Delivery Method Room Air Room Air 12/17/24 14:30 12/17/24 15:15 Temperature 98.4 F Temperature Source Oral Pulse Rate 69 67 Pulse Rate [Right Radial] Respiratory Rate 22 18 Blood Pressure 128/69 111/64 Blood Pressure [Right Arm] Blood Pressure Mean [Right Arm] Blood Pressure Source Automatic Cuff Blood Pressure Source [Right Arm] Blood Pressure Position Sitting Blood Pressure Position [Right Arm] 02 Sat by Pulse Oximetry 95 Oxygen Delivery Method Room Air Lab Data Lab Results 12/17/24 12:20: WBC 3.0 L, RBC 3.53 L, Hgb 12.9 L, Hct 37.0 L, MCV 104.8 H, MCH 36.5 H, MCHC 34.9, RDW 12.2, Plt Count 91 L, MPV 12.3 H, Neut % (Auto) 54.6, Lymph % (Auto) 31.8, Mccormick % (Auto) 10.3 H, Eos % (Auto) 2.3, Baso % (Auto) 1.0, Neut # (Auto) 1.7 L, Lymph # (Auto) 1.0, Mccormick # (Auto) 0.3, Eos # (Auto) 0.1, Baso # (Auto) 0.0, Sodium 129 L, Potassium 4.3, Chloride 100, Carbon Dioxide 18 L, Anion Gap 15.3 H, BUN 9, Creatinine 1.10, Estimated Creat Clear 76, Estimated GFR 67, Est GFR ( Amer) 81, Glucose 84, Calcium 8.8 Orders (Tests/Meds): ED MEDICATIONS Discontinued Medications Generic Name Dose Route Start Last Admin Trade Name Freq PRN Reason Stop Dose Admin Hydrocodone Bitart/Acetaminophen 1 tab 12/17/24 13:50 12/17/24 13:56 Hydrocodone/Apap 5/325 Mg Tablet PO 12/17/24 13:51 1 tab ONCE ONE Administration Iopamidol 75 ml 12/17/24 12:47 12/17/24 12:50 Iopamidol-370 (76%);100ml Bottle IV 12/17/24 12:48 75 ml ONCE ONE Administration Sodium Chloride 10 ml 12/17/24 12:24 Sodium Chloride 0.9% 10ml Flush Syringe IV 01/16/25 12:23 NEEDED PRN Maintain IV Site Sodium Chloride 10 ml 12/17/24 12:47 12/17/24 12:48 Sodium Chloride 0.9% 10ml Syr (Rad Only) IV 12/17/24 12:48 10 ml ONCE ONE Administration ORDERS Category Date Time Status CT abdomen pelvis w con Stat Cat Scan 12/17/24 12:[address] chest wo con Stat Cat Scan 12/17/24 12:24 Completed BMP [Basic Metabolic Panel] Stat Lab 12/17/24 12:20 Completed CBC w/Auto Diff [Complete Blood Count Auto Diff] Stat Lab 12/17/24 12:20 Completed Medical Decision Narrative: In summary patient is a 64-year-old man who presents the emergency department for evaluation of rib pain. Patient is hemodynamically stable upon arrival, afebrile. Tenderness of the right lateral lower ribs. Differential diagnosis includes contusion, rib fracture, internal injury such as pneumothorax or liver injury. Initial workup will be conducted with labs, CT chest, CT abdomen pelvis. Initial inventions include [employer]. Initial workup reviewed by pr pancytopenia, hyponatremia, 4 rib fractures, 8-11 on the right side, 3 are nondisplaced and 1 is displaced. Upon repeat evaluation patient acceptable resolution of symptoms, he is able to use the incentive spirometer up to 1500- 1750. Given multiple rib fractures, age, pain level, absent cough it was advised that the patient be admitted for pulmonary toilet. Patient declines and signed out AMA. Advised use of incentive spirometer every hour. Return to the ER for any worsening. [place] head CT consider CT only for age over 65. Given that patient is 48 hours outside of injury I feel this is not necessary at this time. Nexus C- spine negative. I was consulted by the DOMINIC, and we discussed the complexity of the problems being addressed. I approve the treatment and management plan for this patient's care in the emergency department, thus performing a substantive portion of the medical decision making. Alan Jackson MD Critical Care <CAT Tate - Last Filed: 12/17/24 15:18> Critical Care Time Critical Care Time: No
[2024-12-17 12:31] LABS: Chloride 100 mmol/L (98-107); Hematocrit 37.0 % (42.0-52.0); Hemoglobin 12.9 g/dL (14.1-18.0); Immature Granulocytes % 0 %; Mean Corpuscular HGB Conc 34.9 g/dL (31.8-35.4); Mean Corpuscular Hemoglobin 36.5 pg (27.0-31.2); Mean Corpuscular Volume 104.8 fl (80-94); Nucleated Red Blood Cells % 0 %; Platelet Count 91 K/mm3 (142-424); Potassium 4.3 mmoL/L (3.5-5.1); Red Blood Count 3.53 M/mm3 (4.60-6.20); Red Cell Distribution Width-SD 47.6 fL; Sodium 129 mmol/L (136-145); White Blood Count 3.0 K/mm3 (4.8-10.8)
[2024-12-17 12:34] LABS: Anion Gap 15.3 mEq/L (5-15); Blood Urea Nitrogen 9 mg/dl (9-20); Calcium 8.8 mg/dl (8.4-10.2); Carbon Dioxide 18 mmol/L (22.0-30.0); Creatinine Clearance Estimated 76 mL/min (50-200); Creatinine,Serum 1.10 mg/dl (0.66-1.25); Estimated Glomerular Filt Rate 67 ml/min (>60); GFR (African American) 81 ML/MIN (>60); Glucose 84 mg/dl (74-100)
--- NOTE | 2024-12-17 12:40 | PC.NURSE ---
pt going for CT at this time via wheelchair with pulmonary function technician
[2024-12-17] MEDS: SODIUM CHLORIDE 0.9% 10ML SYR (RAD ONLY) 10 ML IV (12:48)
[2024-12-17] MEDS: IOPAMIDOL-370 (76%);100ML BOTTLE 75 ML IV (12:50)
[2024-12-17] MEDS: HYDROCODONE/APAP 5/325 MG TABLET 1 TAB PO (13:56)
--- NOTE | 2024-12-18 09:48 | PC.NURSE ---
pt called and requested his oxycodone be sent to [facility] in [place]. I passed along the message to
== END 2024-12-17 15:25 | disposition left against medical advice (07) ==
PROVIDERS: Physician Assistant; Emergency Provider Student in an Organized Health Care Education/Training Program; PCP Family Medicine
DX: S22.41XA Multiple fractures of ribs, right side, initial encounter for closed fracture (principal); J44.9 Chronic obstructive pulmonary disease, unspecified; J43.9 Emphysema, unspecified; K21.9 Gastro-esophageal reflux disease without esophagitis; I50.9 Heart failure, unspecified; F17.210 Nicotine dependence, cigarettes, uncomplicated; W19.XXXA Unspecified fall, initial encounter
CPT/HCPCS: 71250; 74177; 80048; 85025; 99285; Q9967

== ENCOUNTER 2024-12-30 16:18 | Emergency (ER) | payer MEDICARE, SELFPAY ==
--- OUTSIDE RECORDS SUMMARY | 2024-10-23 10:30 | XMS_ITS ---
[facility] Address [address] [place] [phone] Care Team Providers Care Instrument Shop Supervisor Name Role Phone Elif Nugent Primary Care Provider [phone] Allergies No Known Allergies Reason For Referral [...] Referral Priority Routine REASON FOR VISIT f/u [facility] d/c following broken [...] 10/23/2024 Encounters Encounter Location Date Provider Diagnosis [facility] [address] [phone] 10/23/2024 Elif Nugent Closed fracture of distal [...] Details Follow Up: 3 Weeks, Reason: Provider Name:Bee Villasenor ond, 01/01/2025 03:30:00 PM, [address] [facility], [facility] [address] [facility], [address], [place], [place], [id number], Provider Name:Elif Zapata er, 01/15/2025 03:45:00 PM, [address] [facility] [facility], [facility] [address] [facility], [address], [place], [place], [phone], Progress Notes * ROHAN COWARTDOB:1960 (64 yo M)Acc No.[id number]:10/23/2024 Progress Notes Patient: Avila FORREST ROHAN Provider: Elif Nugent M.D. :1960 A ge:63 Y S ex:Male Date:10/23/2024 Address:[place] [address], [id number] Subjective: * Chief Complaints: * 1 . f/u [facility] d/c following broken leg. * HPI: H PI: Patient is here today for a Transition of Care Visit. Discharge from the following Facility: admitted to [facility] on 09/25/2024 for Left distal femur fracture, left DISTAL femur periprosthetic (left knee replacement) fracture, with subsequent admission to [facility] , Discharge date: 09/29/2024 from [facility]. Discharged from [facility]: M onday 10/16/2024. Pt sts [...] , left knee replacement surgery, Dr. Diaz, [facility] 09/05/2018, right knee replacement surgery, Dr. Diaz [facility] 12/05/2018, EGD with biopsy 11/2012, Revision of right knee replacement with Explant antibiotic spacer, Dr Stratton 07/16/22, Left periprosthetic femur fracture 09/25/24. * Hospitalization/Major Diagno stic Procedure: b lacked out at home and was taken to [facility] ER and admitted 10/2011, [facility] ER - fall/colitis 06/13/2019, [facility] ER - mikaela 04/2020. * Family History: [...] 100, O2 Sat: 99% on RA, Nurse: [facility], Ht: 71.50. * Examination: G eneral Examination: [...] * Images: Billing Information: * Visit Code: 00728 Office Visit, Est Pt., Level 4. * Procedure Codes: 1111F DSCHR MED/CURENT MED MERGE. G2211 Complex e/m visit add on. G8783 BP SCR PRFRM RCMDD DEFIND SCR INTVL. G8752 MOST RECENT SYSTOLIC BP < 140MM HG. G8754 MOST RECENT DIASTOLIC BP < 90MM HG. * Electronic signature of Elif Nugent MD on 12/30/2024 at 04:30 PM EDT Sign off status: Pending * Provider: Elif Nugent M.D. Date: 0 10/23/2024 Generated for Lui palomo/Angelika/eTransmitting on: 0 12/30/2024 04:30 PM EDT History and Physical Notes * HPI (History of Present Illness) Category Sub-Category Detail Notes Category Not es HPI Patient is here today for a [facility] sition of Care Visit. Discharge from the following Facility: admitted to [facility] on 09/25/2024 for Left distal femur fracture, left DISTAL femur periprosthetic (left knee replacement) fracture, with subsequent admission to [facility] ,Discharge date: 09/29/2024 from [facility]. Discharged from [facility]: Wednesday10/16/2024. Pt sts he is [...]
--- OUTSIDE RECORDS SUMMARY | 2024-11-13 11:45 | XMS_ITS ---
Author Organization [facility] Address [address] [place] [phone] Care Team Providers Care Quality Consultant Name Role Phone Elif Nugent Primary Care [...] Once a day 11/01/2023 Active Vital Signs Weight 182.0 lbs 11/13/2024 Blood pressure systolic 102 mm Hg 11/14/19 25 Blood pressure diastolic 56 mm Hg 025 Heart Rate 88 /min 11/13/2024 Height 71.50 in 11/13/2024 BMI 25.03 kg/m2 11/13/2024 Encounters Encounter Location Date Provider Diagnosis [facility] [facility] [address] [phone] 11/13/2024 Elif Nugent Status post revision of [...] Details Follow Up: 2 Months, Reason: Provider Name:Bee Hamm ond, 01/01/2025 03:30:00 PM, [address], [address], [place], [place], [phone], Provider Name:Elif Zapata er, 01/15/2025 03:45:00 PM, [address], [address], [place], [id number], Progress Notes * ROHAN COWARTDOB:1960 (64 yo M)Acc No.[id number]:11/13/2024 Progress Notes Patient: ROHAN PUGH Provider: Elif Nugent M.D. :1960 A ge:63 Y S ex:Male Date:11/13/2024 Address:[address] Subjective: * Chief Complaints: * 1 . [...] left knee replacement surgery, Dr. Diaz, [facility] 09/05/2018, right knee replacement surgery, Dr. Diaz [facility] 12/05/2018, EGD with biopsy 11/2012, Revision of right knee replacement with Explant antibiotic spacer, Dr Stratton 07/16/22, Left periprosthetic femur fracture 09/25/24. * Hospitalization/Major Diagno stic Procedure: b lacked out at home and was taken to [facility] ER and admitted 10/2011, [facility] ER - fall/colitis 06/13/2019, [facility] ER - mikaela 04/2020. * Family History: [...] ther chronic pain - G89.29 ?6. B [place] 25.0-25.9,adult - Z68.25 Plan: * Treatment: Value [...] G 2211 Complex e/[place], [address] CBC WITH AUTO DIFF, 65284 VENIPUNCT, ROUTINE*, G8420 BMI<30 AND >=22 CALC & DOCU, G8783 BP SCR PRFRM RCMDD DEFIND SCR INTVL, G8752 MOST RECENT SYSTOLIC BP < 140MM HG, G8754 MOST RECENT DIASTOLIC BP < 90MM HG * Follow Up: 2 Months * Images: Billing Information: * Visit Code: 84112 Office Visit, Est Pt., Level 4. * Procedure Codes: G2211 Complex e/[place]. [address] CBC WITH AUTO DIFF. 60701 VENIPUNCT, ROUTINE*. G8420 BMI<30 AND >=22 CALC & DOCU. G8783 BP SCR PRFRM RCMDD DEFIND SCR INTVL. G8752 MOST RECENT SYSTOLIC BP < 140MM HG. G8754 MOST RECENT DIASTOLIC BP < 90MM HG. * Electronic signature of Elif Nugent MD on 12/30/2024 at 04:28 PM EDT Sign off status: Pending * Provider: Elif Nugent M.D. Date: 0 11/13/2024 Generated for Lui palomo/Angelika/Swapnasmangela on: 0 12/30/2024 04:28 PM EDT History and Physical Notes * [...]
--- OUTSIDE RECORDS SUMMARY | 2024-11-30 10:45 | XMS_ITS ---
Author Organization [facility] Address [address] [facility] [address] [place] [id number] Care Team Providers Care Equal Opportunity Specialist Name Role Phone Elif Nugent Primary Care Provider Denisha Guan [phone] Allergies No Known Allergies REASON FOR VISIT 3 weeks Encounters Encounter Location Date Provider Diagnosis [facility] [address] [place] [id number] 11/30/2024 Denisha Guan Plan Of Treatment Next Appt Details Provider Name:Bee Villasenor ond, 01/01/2025 03:30:00 PM, [address], [address], [place], [place], [id number], Provider Name:Elif Zapata er, 01/15/2025 03:45:00 PM, [address], [address], [place], [place], [id number], Progress Notes * ROHAN COWARTDOB:1960 (64 yo M)Acc No.[id number]:11/30/2024 Progress Notes Patient: ROHAN PUGH Provider: CAT Degroot :1960 A ge:64 Y S ex:Male Date:11/30/2024 Address: [address] [facility] Pcp:Elif Nugent Subjective: * Chief Complaints: * 1 . 3 weeks. * HPI: P sychology: Pt needs a refill of Lorazepam. * ROS: D ERMATOLOGY: no R luz. [...] , left knee replacement surgery, Dr. Diaz, [facility] 09/05/2018, right knee replacement surgery, Dr. Diaz [facility] 12/05/2018, EGD with biopsy 11/2012, Revision of right knee replacement with Explant antibiotic spacer, Dr Stratton 07/16/22, Left periprosthetic femur fracture 09/25/24. * Hospitalization/Major Diagno stic Procedure: b lacked out at home and was taken to [facility] ER and admitted 10/2011, [facility] ER - fall/colitis 06/13/2019, [facility] ER [...] * Procedure Codes: * Electronic signature of CAT Landry on 12/30/2024 at 04:29 PM EDT Sign off status: Pending * Provider: CAT Degroot Date: 0 11/30/2024 Generated for Lui palomo/Angelika/eTransmitting on: 0 12/30/2024 04:29 PM EDT
[2024-12-30] VITALS (7 sets, daily range): BP systolic 88–106; BP diastolic 44–76; PULSE 81–92; RESP 16–19; TEMP 36.8–36.9; O2SAT 85–100; BMI 24.0
--- NOTE | 2024-12-30 16:25 | ED_ITS ---
<Statement entered by Florina Hoffman DO - 12/30/24 20:24> I was consulted by the DOMINIC, and we discussed the complexity of problems being addressed. I approve the treatment and management plan for this patient's care in the emergency department, thus performing a substantial portion of the medical decision making. Florina Hoffman DO Discharge Plan Disposition Patient Disposition: Home, Self-Care Condition: Good Prescriptions Prescriptions: No Action omeprazole 20 mg capsule,delayed release(DR/EC) 20 mg PO DAILY Patient Comments: TAKE 1 CAPSULE BY MOUTH ONCE DAILY furosemide 40 mg tablet 40 mg PO DAILY lorazepam 0.5 mg tablet 0.5 mg PO TID PRN (Reason: Anxiety) Patient Comments: TAKE 1 TABLET BY MOUTH THREE TIMES DAILY ibuprofen 800 mg tablet 800 mg PO Q8H PRN (Reason: Pain) gabapentin 600 mg tablet 600 mg PO TID nifedipine [Procardia XL] 30 mg tablet extended release 24hr 30 mg PO DAILY Qty: 30 2RF hydroxychloroquine 200 MG tablet 200 mg PO DAILY oxycodone 5 mg tablet 5 mg PO Q6H PRN (Reason: pain) Qty: 12 0RF Referrals Follow up/Referrals: Jovita Nugent MD [Primary Care Provider, Medical] - See instructions Activity Restrictions/Add. Instructions Additional Instructions/Restrictions: Please return to the emergency department with any worsening signs or symptoms. Please utilize ibuprofen Tylenol as needed for symptomatic relief. Please follow-up with your PCP and orthopedic doctor, continue physical therapy as prescribed. Clinical Impressions Clinical Impression: Muscle strain of left hip Instructions Patient Instructions: DI for Muscle Strain Print Language Print Language: Slovak Discharge ED Provider: Florina Hoffman General Adult HPI General Chief complaint: Extremity Injury, Lower Stated complaint: Broke L femur about eight weeks; Hurting worse Time Seen by Provider: 12/30/24 16:23 Mode of Arrival: Ambulatory Source of Information: Patient Limitations: No Limitations History of Present Illness HPI narrative: 64-year-old male presents to the emergency department with left hip pain, patient has had what sounds like intramedullary joe, plates and fixation for a left traumatic femur fracture performed 3 months ago in [facility] from a fall. Patient states he woke up today, and went to get up when he nearly fell, catching himself, but describes worsening left hip pain, he denies any pop, denies actually striking the ground or striking his head, denies striking his left femur, he has been unable to ambulate on the affected extremity due to pain, states his rehabilitation in his postoperative state has been going well thus far, denies any fever chills chest pain shortness of breath, abdominal pain, no nausea no vomiting no constipation diarrhea no urinary symptomatology, patient denies any lower back pain, denies any presyncopal or syncopal event, denies radicular type otology, denies any saddle anesthesia, denies urinary b ladder or bowel dysfunction, other past medical history is consistent with current everyday smoker, COPD, GERD, SLE. Initial triage vitals unremarkable. Patient took ibuprofen this morning with some relief to her symptomatology. Please note that above description of symptoms, in this electronic medical record under categorization of recalled from ER triage doctor by RN are reflective of an initial nursing assessment, however, is not reflective of my full history and physical exam that was personally taken and clarified. Consequentially, this preceding description of symptoms, which may include the patient's categorized chief complaint in the EMR, do not reflect my personal clinical impression, and the ultimate description of history of present illness and patient stated complaints should be deferred to this section of the note. Unless stated otherwise or congruent with this section of the note, additional signs, symptoms, or incongruence should be interpreted as inaccurate with my clinical impression. Onset (ago): hour(s) Related Data Home Medications ?Medication ?Instructions ?Recorded ?Confirmed hydroxychloroquine 200 mg tablet 200 mg PO DAILY lupus 10/11/17 08/18/24 furosemide 40 mg tablet 40 mg PO DAILY 08/14/2008/08 gabapentin 600 mg tablet 600 mg PO TID 08/14/2008/18 ibuprofen 800 mg tablet 800 mg PO Q8H PRN Pain 08/1408/18/24 lorazepam 0.5 mg tablet 0.5 mg PO TID PRN Anxiety 08/18/24 omeprazole 20 mg capsule,delayed 20 mg PO DAILY 08/18/24 release Previous Rx's ?Medication ?Instructions ?Recorded nifedipine 30 mg tablet,extended 30 mg PO DAILY #30 ta bs 08/14/20 release 24 hr (Procardia XL) oxycodone 5 mg tablet 5 mg PO Q6H PRN pain #12 tab s 12/18/24 Allergies Allergy/AdvReac Type Severity Reaction Status Date / Time No Known Allergies Allergy Verified 08/18/24 06:33 [facility] Disclaimer: The information contained in this section may have been updated after the patient was seen, as this information can be updated by other users. Medical History Paraseptal emphysema History of smoking 30 or more pack years COPD (chronic obstructive pulmonary disease) Dyspnea on exertion Screening for lung cancer Pulmonary emphysema Tobacco abuse disorder Tobacco abuse counseling Smoking greater than 30 pack years Chest pain Palpitations Tobacco dependence syndrome Sinus tachycardia Gastroesophageal reflux disease CHF (congestive heart failure) COPD (chronic obstructive pulmonary disease) Dyspnea Surgical History History of arthroscopic knee surgery Family History Other Cancer Social History Smoking Status: Current every day smoker tobacco type: cigarettes alcohol intake: never counseling provided: none substance use type: denies use current occupational status: retired and other Travel in the last 8 weeks?: None caffeine: Yes Have you lived/traveled outside US in past 30 days?: No Contact w/someone who lives/traveled outside US past 30 days?: No Exposure to someone with infectious disease in past 14 days?: No Do you have a fever (greater than 100.4 F or 38 C)?: No Have you tested positive for COVID-19?: No Exposed to someone with COVID-19 in past 14 days?: No Do you have a sore throat?: No Do you have a cough?: No Do you have any weakness?: No Do you have any diarrhea?: No Are you experiencing any unusual bleeding?: No Do you have any muscle aches/pain?: No Do you have any abdominal pain?: No Are you experiencing loss of taste or smell?: No Other Medical History Have you received the Flu Vaccine for this season: No Have you received the Pneumonia Vaccine: Yes ROS Obtained: Yes All systems reviewed & no additional complaints except as documented Physical Exam General General appearance: alert and in no apparent distress Head Head exam: atraumatic and normocephalic Eye Eye exam: Present PERRL and EOMI ENT ENT exam: Present mucous membranes moist Neck Neck exam: Present normal inspection Chest Chest inspection: Present normal inspection and symmetric chest wall rise Respiratory Respiratory exam: Present normal lung sounds bilaterally; Absent respiratory distress Cardiovascular Cardiovascular exam: Present regular rate and normal rhythm Abdominal Exam Abdominal exam: Present soft; Absent tenderness Extremities Exam Extremities exam: Present normal inspection, tenderness and other (There is mild tenderness palpation to the left intra trochanteric, patient has good strength, with dorsiflexion and plantarflexion of the foot, moves extremity to command, some pain limited range of motion, focal to with flexion extension of the knee, otherwise neurovascular intact); Absent full ROM Neurological Exam Neurological exam: Present alert and oriented X3 Psychiatric Psychiatric exam: Present normal affect Skin Skin exam: Present warm and dry Medical Decision Making Medical Records Medical records reviewed: Yes I reviewed the patient's medical records. Screening: Per USPSTF and CDC recommendations, given the prevalence of disease in our region, it is our hospital?s policy to screen for HIV and viral Hepatitis for all patients aged 18 and over and those with ongoing risk factors. Raymond Inquiry Pt receiving controlled substance: Yes Raymond was queried for this patient: No Reason not queried -: Emergent pt cond-no time Risks and benefits of using a controlled substance: were discussed with pt by me Vital Signs: 12/30/24 16:27 12/30/24 16:30 12/30/24 16:30 Temperature 98.2 F 98.2 F Temperature Source Oral Pulse Rate 92 H 87 Pulse Rate [Left] 87 Respiratory Rate 16 16 Blood Pressure 88/47 L 88/47 L Blood Pressure [Left Arm] 88/47 L Blood Pressure Mean [Left Arm] 60 02 Sat by Pulse Oximetry 100 99 99 Oxygen Delivery Method Room Air 12/30/24 16:30 12/30/24 17:00 12/30/24 17:30 Temperature Temperature Source Pulse Rate 87 86 82 Pulse Rate [Left] Respiratory Rate Blood Pressure 88/44 L 96/52 L 89/46 L Blood Pressure [Left Arm] Blood Pressure Mean [Left Arm] 02 Sat by Pulse Oximetry 100 100 100 Oxygen Delivery Method 12/30/24 18:06 12/30/24 18:30 Temperature Temperature Source Pulse Rate 82 81 Pulse Rate [Left] Respiratory Rate Blood Pressure 106/49 L Blood Pressure [Left Arm] Blood Pressure Mean [Left Arm] 02 Sat by Pulse Oximetry 85 L 100 Oxygen Delivery Method Orders (Tests/Meds): ED MEDICATIONS Discontinued Medications Generic Name Dose Route Start Last Admin Trade Name Freq PRN Reason Stop Dose Admin Hydrocodone Bitart/Acetaminophen 1 tab 12/30/24 16:30 12/30/24 17:02 Hydrocodone/Apap 5/325 Mg Tablet PO 12/30/24 16:31 1 tab ONCE ONE Administration ORDERS Category Date Time Status CT bony pelvis Stat Cat Scan 12/30/24 17:[address] femur LT wo con Stat Cat Scan 12/30/24 17:33 Completed XR femur LT 2V Stat Exams 12/30/24 16:29 Completed XR hip LT 2-3V w/pelvis Stat Exams 12/30/24 16:29 Completed Medical Decision Narrative: 64-year-old male presents the emergency room with left hip pain, no traumatic injury today, differential diagnose include but not limited to, hardware failure, periprosthetic fracture, hip sprain/strain, other musculoskeletal injury. I discussed this patient's case with the attending physician she saw and examined the patient as well. Will obtain x-rays of the pelvis/left hip and left femur for further evaluation of characterization, will give 5 mg p.o. [place] for pain. I reviewed the patient's femur x-ray, hip x-ray and pelvic x-ray along with cor responding radiological reports, moderate degenerative changes in both hips and lumbar spine, there is no evidence of acute fracture no evidence of malalignment or dislocation. There is an intramedullary joe in the left femur, left total knee replacement, healing fracture involving the distal femur. Patient still unable to weight-bear after discussing results of the x-rays, will obtain CT bony pelvis and CT femur without contrast to rule out periprosthetic fracture. I reviewed the patient's CT bony pelvis without contrast on the corresponding radiologic report, postsurgical changes of the left femoral diaphysis the hardware appears intact no periprosthetic fracture, nonspecific urinary bladder wall thickening please exclude infection. I reviewed the patient's CT femur without contrast along the corresponding radiologic report, the oblique distal femoral meta has full fracture demonstrates bony remodeling and periosteal reaction consistent with healing of acute femoral fracture. I discussed the results with the patient and family the bedside patient and family are in agreement with the current treatment plan/discharge plan, recommend ibuprofen and Tylenol and other analgesia as needed for symptomatic relief, patient states that he is currently undergoing physical therapy right now/rehab at [facility] advised him to keep these appointments. Patient was given strict ED return precautions. Patient and family voiced understanding and agreement with the current treatment plan/discharge plan. Critical Care Critical Care Time Critical Care Time: No
--- NOTE | 2024-12-30 16:29 | XR_ITS ---
PROCEDURE INFORMATION: Exam: XR Left Hip Exam date and time: 12/30/2024 4:23 PM Age: 64 years old Clinical indication: Hip pain; Left hip; Prior surgery; Surgery date: 1-6 months; Surgery type: L femur nail; Additional info: Left hip pain previous SX TECHNIQUE: Imaging protocol: Radiologic exam of the left hip. Views: 2 or 3 views hip with pelvis when performed. COMPARISON: CT ABDOMEN PELVIS W CON 12/17/2024 12:50 PM FINDINGS: Bones/joints: Intramedullary joe in the left femur. Moderate degenerative changes in both hips and lumbar spine. There is no evidence of acute fracture.There is no evidence of malalignment or dislocation. Soft tissues: Unremarkable. IMPRESSION: 1. Moderate degenerative changes in both hips and lumbar spine. 2. There is no evidence of acute fracture.There is no evidence of malalignment or dislocation.
--- NOTE | 2024-12-30 16:29 | XR_ITS ---
PROCEDURE INFORMATION: Exam: XR Left Femur Exam date and time: 12/30/2024 4:26 PM Age: 64 years old Clinical indication: Pain; Thigh; Left; Prior surgery; Surgery date: 1-6 months; Surgery type: L femur nail; Additional info: Left leg pain HX of SX TECHNIQUE: Imaging protocol: Radiologic exam of the left femur. Views: 2 views. COMPARISON: CR XR FEMUR LT 2V 11/02/2024 10:52 AM FINDINGS: Bones/joints: Intramedullary joe in the left femur. . Moderate degenerative changes in both hips and lumbar spine . There is no evidence of acute fracture.There is no evidence of malalignment or dislocation. Total knee replacement Healing fracture involving the distal femur. Soft tissues: Unremarkable. IMPRESSION: 1. Intramedullary joe in the left femur. . 2. Left total knee replacement 3. Healing fracture involving the distal femur.
--- OUTSIDE RECORDS SUMMARY | 2024-12-30 16:29 | XMS_ITS | Referral Summary ---
Author Organization [facility] ([place], [place], [place], [place]) Address [address] [place] [address] Care Team Providers Care Form Worker Name Role Phone Dario Nugent MD Primary Care Provider [phone] Encounters Date Type Department Care Team Description 09/29/2024 Telephone [facility] [address] [place] [address] Dario Nugent MD Hospital Follow Up 09/25/2024 10:01 AM EDT - 09/29/2024 5:45 PM EDT Hospital Encounter [facility] [address] [place] [address] Moose Granda MD Quisenberry, Thomas, MD Siddiqi, Sourav, DO Femur fracture, left (HCC) (Primary Dx) Discharge Disposition: [facility] from Last 3 Months Allergies Active Allergy [...] your living situation today? I have a [facility] place to live 09/25/2024 Think about [...] Do you speak a language other than Bhutanese at the rehabilitation institute? No 09/25/2024 Do you want help with [...] on file Medical Devices Implanted Type Area Handtools Repairer Device Identifier Shelf Expiration Date Model / Serial / Lot Scr Lckng 5.0x60 04.045.060ts - [id number] Implanted:Qty: 1 on 09/26/2024 by Chuy Johnson MD at [facility] IMPLANTS Left: Knee SYNTHES:[employer] [place] 10/07/2028 04.045.060 TS / / [id number] Nail Rfna [id number] 10 Deg Bend 04.233.041s - [id number] Implanted:Qty: 1 on 09/26/2024 by Chuy Johnson MD at [facility] IMPLANTS Left: Knee SYNTHES:[employer] [place] 06/09/2026 04.233.041 S / / [id number] Scr Lckng 5.0x36 Xl25 Strl 04.045.036ts - [id number] Implanted:Qty: 1 on 09/26/2024 by Chuy Johnson MD at [facility] IMPLANTS Left: Knee SYNTHES:[employer] [place] 02/06/2029 04.045.036 TS / / [id number] End Cap Rfna 0mm Strl 04.233.000s - [id number] Implanted:Qty: 1 on 09/26/2024 by Chuy Johnson MD at [facility] IMPLANTS Left: Knee SYNTHES:[employer] [place] 03/09/2034 04.233.000 S / / [id number] Scr Sg 5.0x66mm 04.045.066ts - [id number] Implanted:Qty: 1 on 09/26/2024 by Chuy Johnson MD at [facility] IMPLANTS Left: Knee SYNTHES:[employer] [place] 04.045.066 TS / / N/A Scr Lckng 5.0x38 Xl25 Strl 04.045.038ts - [id number] Implanted:Qty: 1 on 09/26/2024 by Chuy Johnson MD at [facility] IMPLANTS Left: Knee SYNTHES:[employer] [place] 04..038 TS / / N/A Scr Sg For Im Nail /Xl25 04.045.088s - [id number] Implanted:Qty: 1 on 09/26/2024 by Chuy Johnson MD at [facility] IMPLANTS Left: Knee SYNTHES:[employer]ES [place] .08 S / / N/A Procedures Procedure Name Priority Date/Time Associated Diagnosis Comments COMPREHENSIVE METABOLIC PANEL Routine 09/29/2024 4:19 AM EDT CBC W/ AUTO DIFF Routine 09/29/2024 4:19 AM EDT from Last 3 Months Results * (ABNORMAL) CBC with automated diff (09/29/2024 4:19 AM EDT) WBC 4.3 3.9 - 10.0 K/ L 09/29/2024 4:32 AM EDT [facility] RBC 2.43(L) 4.63 - 6.08 M/ L 09/29/2024 4:32 AM EDT [facility] Hemoglobin 9.5(L) 11.2 - 15.7 GM/DL 09/29/2024 4:32 AM EDT [facility] Hematocrit 28.0(L) 40.1 - 51.0 % 09/29/2024 4:32 AM EDT [facility] MCV 115(H) 79 - 95 fL 09/29/2024 4:32 AM EDT [facility] MCH 39.1(H) 25.6 - 32.2 pg 09/29/2024 4:32 AM EDT [facility] MCHC 33.9 32.3 - 36.5 GM/DL 09/29/2024 4:32 AM EDT [facility] RDW 12.7 11.6 - 14.4 % 09/29/2024 4:32 AM EDT [facility] Platelets 88(L) 163 - 369 K/CU MM 09/29/2024 4:32 AM EDT [facility] MPV 10.8 9.4 - 12.4 fL 09/29/2024 4:32 AM EDT [facility] % Neutros 61 34 - 68 % 09/29/2024 4:32 AM EDT [facility] % Lymphs 25 19 - 53 % 09/29/2024 4:32 AM EDT [facility] % Monos 9 4 - 13 % 09/29/2024 4:32 AM EDT [facility] % Eos 4 1 - 7 % 09/29/2024 4:32 AM EDT [facility] % Baso 1 0 - 1 % 09/29/2024 4:32 AM EDT [facility] # Neutros 2.62 1.56 - 6.13 K/ L 09/29/2024 4:32 AM EDT [facility] # Lymphs 1.08(L) 1.18 - 3.74 K/ L 09/29/2024 4:32 AM EDT [facility] # Monos 0.39 0.24 - 0.82 K/ L 09/29/2024 4:32 AM EDT [facility] # Eos 0.15 0.04 - 0.54 K/ L 09/29/2024 4:32 AM EDT [facility] # Baso 0.02 0.01 - 0.08 K/ L 09/29/2024 4:32 AM EDT [facility] Immature Granulocytes-Re lative 0.20 0.00 - 0.60 % 09/29/2024 4:32 AM EDT [facility] # IG 0.01 0.00 - 0.05 K/uL 09/29/2024 4:32 AM EDT [facility] Blood Venipuncture / Unknown 09/29/2024 4:19 AM EDT 09/29/2024 4:23 AM EDT [facility] - 09/29/2024 4:32 AM EDT When [...] Stacy MD LAB BLOOD ORDERABLES Final Result [facility] [address] [phone] * (ABNORMAL) Comprehensive metabolic panel (09/29/2024 4:19 AM EDT) Sodium 133(L) 136 - 146 meq/L 09/29/2024 5:44 AM EDT [facility] Potassium 3.5 3.5 - 5.1 meq/L 09/29/2024 5:44 AM EDT [facility] Chloride 105 102 - 112 meq/L 09/29/2024 5:44 AM EDT [facility] CO2 22 21 - 32 meq/L 09/29/2024 5:44 AM EDT [facility] Calcium 7.8(L) 8.5 - 10.1 mg/dL 09/29/2024 5:44 AM EDT [facility] Glucose 89 74 - 106 mg/dL 09/29/2024 5:44 AM EDT [facility] BUN 8 7 - 22 mg/dL 09/29/2024 5:44 AM EDT [facility] Creatinine 1.03 0.70 - 1.30 mg/dL 09/29/2024 5:44 AM EDT [facility] BUN/Creatinine 8 8 - 20 09/29/2024 5:44 AM EDT [facility] Albumin 2.1(L) 3.4 - 5.0 g/dL 09/29/2024 5:44 AM EDT [facility] Alkaline Phosphatase 74 27 - 136 U/L 09/29/2024 5:44 AM EDT [facility] ALT 25 12 - 78 U/L 09/29/2024 5:44 AM EDT [facility] AST 29 5 - 37 U/L 09/29/2024 5:44 AM EDT [facility] Total Bilirubin 0.8 0.2 - 1.3 mg/dL 09/29/2024 5:44 AM EDT [facility] Protein, Total 5.9(L) 6.4 - 8.2 gm/dL 09/29/2024 5:44 AM EDT [facility] Anion Gap 10 9 - 20 09/29/2024 5:44 AM EDT [facility] A/G Ratio 0.6(L) 1.1 - 2.5 09/29/2024 5:44 AM EDT [facility] Globulin 3.8 1.5 - 4.5 g/dL 09/29/2024 5:44 AM EDT [facility] Osmolality Calc 264.2 mOsm/kg 5:44 AM EDT [facility] eGFR (mL/min/1.73m2) >60 >=60 mL/min/1.7 3m2 09/29/2024 5:44 AM EDT [facility] Comment:ESTIMATED GFR IS NOT ACCURATE CREATININE CLEARANCE IN PREDICTING GLOMERULAR FILTRATION RATE. ESTIMATED GFR IS NOT APPLICABLE FOR DIALYSIS PATIENTS. Blood Venipuncture / Unknown 09/29/2024 4:19 AM EDT 09/29/2024 4:23 AM EDT us Johnny Stacy MD LAB BLOOD ORDERABLES Final Result [facility] [address] [phone] from Last 3 Months Insurance [facility] MEDIC[facility] PPO Advance Directives For more information, please contact: [phone] * Full Code (Latest Code Status on File) Date Activated Date Inactivated Comments 09/25/2024 10:26 AM 09/29/2024 6:46 PM Healthcare Agents on File Name Relationship Healthcare Agent Relationshi p Communication Quynh De La Cruz Other Healthcare Decision-Maker Care Teams Form Worker Relationship Specialty Start Date End Date Dario Nugent MD [address] [place] [address] PCP - General Family Medicine 09/25/24
--- OUTSIDE RECORDS SUMMARY | 2024-12-30 16:29 | XMS_ITS | Clinical Summary ---
Author Organization Healthcare Address [address] [place] [address] Care Team Providers Care Application Trainer Name Role Phone Dario Nugent MD Primary Care Provider [phone] Allergies Active Allergy Reactions Criticality Noted Date [...] Active Active Problems No known active problems Family History Medical History Relation Name Comments [...] [facility]-Depression Screening 1958 [facility]-Hepatitis C Screening 1958 [facility]-Medicare Annual Wellness (AWV) 1960 [facility]-Infant/Child/Adol SDOH Screenings 1958 [facility]- SDOH Screenings 1976 [facility]-Adult SDOH Screenings 1976 CT Colonography 11/26/2003 Colonoscopy 11/26/2003 FIT-DNA 11/26/2003 FIT 11/26/2003 FOBT 11/26/2003 Sigmoidoscopy 11/26/2003 [facility]-Colorectal Cancer Screening 11/26/2003 [facility]-Pneumococcal Vaccine: 50 + Years (2 of 2 - PCV) 04/30/2021 04/30/2020, 06/06/2018 [facility]-Zoster Vaccines (2 of 2) 07/31/2021 06/05/2021 [facility]-SGEOS-15 Vaccine (4 - season) 2024 03/05/2021, 08/02/2020, 07/04/2020 [facility]-Influenza Vaccine [...] on patient's age to complete this topic Insurance [facility] [place] [address] Care Teams Application Trainer Relationship Specialty Start Date End Date Dario Nugent MD [address] [place] [address] PCP - General 09/20/20
--- OUTSIDE RECORDS SUMMARY | 2024-12-30 16:29 | XMS_ITS | Clinical Summary ---
Author Organization [facility] ([place], [place], [place], [place]) Address [address] [place] [address] Care Team Providers Care Ekg/Ecg Technician Name Role Phone Dario Nugent MD Primary Care Provider [phone] Allergies Active Allergy Reactions Criticality Noted Date [...] Type Department Care Team Description 09/29/2024 Telephone [facility] Telemetry [address] [place] [address] Dario Nugent MD Hospital Follow Up 09/25/2024 10:01 AM EDT - 09/29/2024 5:45 PM EDT Hospital Encounter [facility] Telemetry [address] [place] [address] Moose Granda MD Quisenberry, Thomas, MD Siddiqi, Ismaeel, Femur fracture, left (HCC) (Primary Dx) Discharge Disposition: [facility] from Last 3 Months Social History Tobacco [...] your living situation today? I have a [facility] place to live 09/25/2024 Think about [...] Do you speak a language other than [place] at [facility]? No 09/25/2024 Do you want help with [...] Risk Screening 05/10/2024 Medicare IPPE ([place] [id number] 09/07/2024 Influenza Vaccine (#1) 2025 , 02/17/2022, 04/17/2021 Tobacco Cessation Counseling and Screening (12+) 09/29/2025 09/29/2024 DTAP/TDAP/TD VACCINES (2 - T d or Tdap) 06/06/2028 06/06/2018 Medical Devices Implanted Type Area Smasher Hand Device Identifier Shelf Expiration Date Model / Serial / Lot Scr Lckng 5.0x60 .060ts - [id number] Implanted:Qty: 1 on 09/26/2024 by Chuy Johnson MD at [facility] IMPLANTS Left: Knee SYNTHES:SY[employer]ES [place] 10/07/2028060 TS / [id number] Nail Rfna [id number] 10 Deg Bend 04.233.041s - [id number] Implanted:Qty: 1 on 09/26/2024 by Chuy Johnson MD at [facility] IMPLANTS Left: Knee SYNTHES:SY[employer]ES [place] 06/09/2026 04.233.041 S / / [id number] Scr Lckng 5.0x36 Xl25 Strl 04.045.036ts - [id number] Implanted:Qty: 1 on 09/26/2024 by Chuy Johnson MD at [facility] IMPLANTS Left: Knee SYNTHES:SY[employer]ES [place] 02/06/2029 04.045.036 TS / / [id number] End Cap Rfna 0mm Strl 04.233.000s - [id number] Implanted:Qty: 1 on 09/26/2024 by Chuy Johnson MD at [facility] IMPLANTS Left: Knee SYNTHES:SY[employer]THES [place] 03/09/2034 04.233.000 S / / [id number] Scr Sg 5.0x66mm 04.045.066ts - [id number] Implanted:Qty: 1 on 09/26/2024 by Chuy Johnson MD at [facility] IMPLANTS Left: Knee SYNTHES:SYNTHES [place] 04.045.066 TS / / N/A Scr Lckng 5.0x38 Xl25 Strl 04.045.038ts - [id number] Implanted:Qty: 1 on 09/26/2024 by Chuy Johnson MD at [facility] IMPLANTS Left: Knee SYNTHES:SYNTHES [place] 04.045.038 TS / / N/A Scr Sg For Im Nail 5/88/Xl25 04.045.088s - [id number] Implanted:Qty: 1 on 09/26/2024 by Chuy Johnson [...] 10.0 K/ L 09/29/2024 4:32 AM EDT [facility] RBC 2.43(L) 4.63 - 6.08 M/ L 09/29/2024 4:32 AM EDT [facility] Hemoglobin 9.5(L) 11.2 - 15.7 GM/DL 09/29/2024 4:32 AM EDT [facility] Hematocrit 28.0(L) 40.1 - 51.0 % 09/29/2024 4:32 AM EDT [facility] MCV 115(H) 79 - 95 fL 09/29/2024 4:32 AM EDT [facility] MCH 39.1(H) 25.6 - 32.2 pg 09/29/2024 4:32 AM EDT [facility] MCHC 33.9 32.3 - 36.5 GM/DL 09/29/2024 4:32 AM EDT [facility] RDW 12.7 11.6 - 14.4 % 09/29/2024 4:32 AM EDT [facility] Platelets 88(L) 163 - 369 K/CU MM 09/29/2024 4:32 AM EDT [facility] MPV 10.8 9.4 - 12.4 fL 09/29/2024 4:32 AM EDT [facility] % Neutros 61 34 - 68 % 09/29/2024 4:32 AM EDT [facility] % Lymphs 25 19 - 53 % 09/29/2024 4:32 AM EDT [facility] % Monos 9 4 - 13 % 09/29/2024 4:32 AM EDT [facility] % Eos 4 1 - 7 % 09/29/2024 4:32 AM EDT [facility] % Baso 1 0 - 1 % 09/29/2024 4:32 AM EDT [facility] # Neutros 2.62 1.56 - 6.13 K/ L 09/29/2024 4:32 AM EDT [facility] # Lymphs 1.08(L) 1.18 - 3.74 K/ L 09/29/2024 4:32 AM EDT [facility] # Monos 0.39 0.24 - 0.82 K/ L 09/29/2024 4:32 AM EDT [facility] # Eos 0.15 0.04 - 0.54 K/ L 09/29/2024 4:32 AM EDT [facility] # Baso 0.02 0.01 - 0.08 K/ L 09/29/2024 4:32 AM EDT [facility] Immature Granulocytes-Re lative 0.20 0.00 - 0.60 % 09/29/2024 4:32 AM EDT [facility] # IG 0.01 0.00 - 0.05 K/uL 09/29/2024 4:32 AM EDT [facility] Blood Venipuncture / Unknown 09/29/2024 4:19 AM EDT 09/29/2024 4:23 AM EDT Narrative [facility] - 09/29/2024 4:32 AM EDT [...] Stacy MD LAB BLOOD ORDERABLES Final Result [facility] [address] [phone] * (ABNORMAL) Comprehensive metabolic panel (09/29/2024 4:19 AM EDT) Sodium 133(L) 136 - 146 meq/L 09/29/2024 5:44 AM EDT [facility] Potassium 3.5 3.5 - 5.1 meq/L 09/29/2024 5:44 AM EDT [facility] Chloride 105 102 - 112 meq/L 09/29/2024 5:44 AM [facility] CO2 22 21 - 32 meq/L 09/29/2024 5:44 AM T [facility] Calcium 7.8(L) 8.5 - 10.1 mg/dL 09/29/2024 5:44 AM [facility] Glucose 89 74 - 106 mg/dL 09/29/2024 5:44 AM [facility] BUN 8 7 - 22 mg/dL 09/29/2024 5:44 AM [facility] Creatinine 1.03 0.70 - 1.30 mg/dL 09/29/2024 5:44 AM [facility] BUN/Creatinine 8 8 - 20 09/29/2024 5:44 AM [facility] Albumin 2.1(L) 3.4 - 5.0 g/dL 09/29/2024 5:44 AM [facility] Alkaline Phosphatase 74 27 - 136 U/L 09/29/2024 5:44 AM [facility] ALT 25 12 - 78 U/L 09/29/2024 5:44 AM [facility] AST 29 5 - 37 U/L 09/29/2024 5:44 AM [facility] Total Bilirubin 0.8 0.2 - 1.3 mg/dL 09/29/2024 5:44 AM [facility] Protein, Total 5.9(L) 6.4 - 8.2 gm/dL 09/29/2024 5:44 AM [facility] Anion Gap 10 9 - 20 09/29/2024 5:44 AM [facility] A/G Ratio 0.6(L) 1.1 - 2.5 09/29/2024 5:44 AM [facility] Globulin 3.8 1.5 - 4.5 g/dL 09/29/2024 5:44 AM [facility] Osmolality Calc 264.2 mOsm/kg 5:44 AM [facility] eGFR (mL/min/1.73m2) >60 >=60 mL/min/1.7 3m2 09/29/2024 5:44 AM EDT [facility] Comment:ESTIMATED GFR IS NOT ACCURATE CREATININE CLEARANCE IN PREDICTING GLOMERULAR FILTRATION RATE. ESTIMATED GFR IS NOT APPLICABLE FOR DIALYSIS PATIENTS. Blood Venipuncture / Unknown 09/29/2024 4:19 AM EDT 09/29/2024 4:23 AM EDT us Johnny Stacy MD LAB BLOOD ORDERABLES Final Result [facility] [address] [place] [id number], [facility] [phone] from Last 3 Months Insurance [employer] MEDICARE PPO Advance Directives For more information, please contact: [phone] * Full Code (Latest Code Status on File) Date Activated Date Inactivated Comments 09/25/2024 10:26 AM 09/29/2024 6:46 PM Healthcare Agents on File Name Relationship Healthcare Agent Relationswa p Communication Quynh De La Cruz Other Healthcare Decision-Maker Care Teams Ekg/Ecg Technician Relationship Specialty Start Date End Date Dario Nugent MD [address] [place] [address] PCP - General Family Medicine 09/25/24
--- OUTSIDE RECORDS SUMMARY | 2024-12-30 16:29 | XMS_ITS | Clinical Summary ---
Author Organization [facility] Address [address] [place] [address] Phone Care Team Providers Care Anaesthetic Technician Name Role Phone Nadja Pressley RN Unavailable Unavailable Conditions or Problems Problem Name Problem Code Onset Date Status Entry Date Provider Comment Standard Description Annotate Adverse drug reaction 45010860 (SNOMED CT) 09/29 Active 09/29 Dipesh Walker MD Adverse reaction to drug Eosinophilia , unspecified 803459943 (SNOMED CT) 09/29 Active 09/29 Dipesh Walkre MD Eosinophil count above reference range Health advice, education, or counseling 428517237 (SNOMED CT) 08/04 Active 08/04 Ketan Rucker Procedure carried out on subject Thrombocytop enia 583455593 (SNOMED CT) 06/17 Active 06/17 Dipesh Walker MD Thrombocytopeni c disorder Leukopenia 35725010 (SNOMED CT) 06/17 Active 06/17 Dipesh Walker MD Leukopenia Hyperpigment ation of skin 55787589 (SNOMED CT) 06/17 Active 06/17 Dipesh Walker MD Hyperpigmentati on of skin Discoid lupus 996583082 (SNOMED CT) 01/21 Active 01/21 Ketan Rucker Discoid lupus erythematosus Hereditary or idiopathic neuropathy 841374902 (SNOMED CT) 09/18 Active 09/18 Ele Romano Neuropathy COPD 91838434 (SNOMED CT) 09/18 Active 09/18 Ele Romano Chronic obstructive pulmonary disease Smoking cessation counseling 359524674 (SNOMED CT) 05/21 Resolved 05/21 Ele Juan Antonio Procedure carried out on subject Adverse drug reaction 56962264 (SNOMED CT) 08/06 Resolved 08/06 Ele Juan Antonio Adverse reaction to drug Knee, right, subsequent encounter, infection/in flammatory reaction due to internal joint prosthesis T84.53xD (ICD-10-CM ) 05/19 Active 05/19 Ele Juan Antonio Infection and inflammatory reaction due to internal right knee prosthesis, subsequent encounter Myositis 02659129 (SNOMED CT) 08/06 Resolved 08/06 Ele Juan Antonio Myositis Nicotine dependence, cigarettes F17.210 (ICD-10-CM ) 05/21 Active 05/21 Ele Juan Antonio Nicotine dependence, cigarettes, uncomplicated Staphylococc al septic arthritis, right knee (identify type of staph) M00.061 (ICD-10-CM ) 06/25 Active 06/25 Ele Juan Antonio Staphylococcal arthritis, right knee Adverse drug reaction 05048798 (SNOMED CT) 08/06 Removed 08/06 Dipesh Walker MD Adverse reaction to drug Myositis 90731755 (SNOMED CT) 08/06 Removed 08/06 Dipesh Walker MD Myositis Staphylococc al infection 43770130 (SNOMED CT) 06/25 Active 06/25 Dipesh Walker MD Staphylococcal infectious disease Septic arthritis, right knee 28825890 (SNOMED CT) 06/25 Inactive 06/25 Dipesh Walker MD Bacterial arthritis Tobacco abuse 64849198 (SNOMED CT) 05/21 Inactive 05/21 Dipesh Walker MD Tobacco dependence syndrome Smoking cessation counseling 877344309 (SNOMED CT) 05/21 Removed 05/21 Dipesh Walker MD Procedure carried out on subject Effusion, right knee M25.461 (ICD-10-CM ) 05/19 Active 05/19 Ele Juan Antonio Effusion, right knee Benign Essential Hypertension 42890990 (SNOMED CT) 05/19 Active 05/19 Ele Romano Benign hypertension Knee, right, initial encounter(s) , infection/in flammatory reaction due to internal joint prosthesis T84.53xA (ICD-10-CM ) 05/19 Inactive 05/19 Ele Romano Infection and inflammatory reaction due to internal right knee prosthesis, initial encounter Cellulitis of RLE 864452541 (SNOMED CT) 05/19 Active 05/19 Ele Romano Cellulitis of lower limb Medications Medication Instructions Start Date Stop Date Generic Name NDC Provider HYDROXYCHLOROQUINE SULFATE 200 MG TABS 1 tab oral twice daily 06/17 hydroxychloroquine 27538766616 Ketan Rucker MINOCYCLINE HCL 100 MG CAPS Take 1 capsule by mouth twice a day 01/21 minocycline 58675759013 Dipesh Walker MD DOXYCYCLINE HYCLATE 100 MG CAPS Take 1 capsule by mouth twice a day 09/24 doxycycline hyclate 55276030231 Dipesh Walker MD ASPIRIN EC 81 MG TBEC 1q12h aspirin 67638144876 [facility] DOXYCYCLINE MONOHYDRATE 100 MG CAPS 1bid doxycycline monohydrate 75090314794 Braden Bennett FOLIC ACID 1 MG TABS 1qd folic acid 77914256663 [facility] MELOX[facility] 15 MG TABS 1qd,wm meloxicam 62767113068 [facility] ONDANSETRON HCL 4 MG TABS 1q6h,prn ondansetron hcl 36965936866 Braden Bennett OXYCODONE HCL 5 MG TABS 1q4h,prn oxycodone 64537908853 Braden Bennett PANTOPRAZOLE SODIUM 40 MG TBEC 1am pantoprazole 59502451225 Braden Bennett TAMSULOSIN HCL 0.4 MG CAPS 1hs tamsulosin 71735274181 Braden Bennett TRAMADOL HCL 50 MG TABS 1q8h,prn tramadol 78567249506 Braden Linkenship VANCOMYCIN HCL IN NACL 1-0.9 GM/250ML-% SOLN Vancomycin 1.5GM IV Q24hrs at 9amStat labs prior to appt (ensure his appt and timing of dos coincide) 08/27 vancomycin in 0.9 % sodium chl 66933526084 Jennyfer Beasley VANCOMYCIN HCL IN NACL 1-0.9 GM/250ML-% SOLN Vancomycin 1.5GM IV Q24hrs at 9amStat labs prior to appt (ensure his appt and timing of dos coincide) 08/27 vancomycin in 0.9 % sodium chl 66014204803 Ileana Moon VANCOMYCIN HCL IN NACL 1-0.9 GM/250ML-% SOLN Vancomycin 1GM IV K33Ppxd labs prior to appt (ensure his appt and timing of dos coincide) 08/11 vancomycin in 0.9 % sodium chl 93110208700 Elizabeth Romero RN LEVOFLOXACIN 500 MG TABS once a day levofloxacin 27479320606 Ileana Vasquezo r Tylenol unspecified unspecified 500 mg PRN acetaminophen 73045085067 Ileana Mi nor FOLIC ACID 0.8 MG CAPS once a day 1 mg folic acid 25972759416 Ileana Minor THIAMINE HCL 100 MG TABS 1 tab oral daily thiamine hcl (vitamin b1) 85007830852 Ketan Rucker FUROSEMIDE 40 MG TABS 1 tab oral daily furosemide 01605320094 Ketan Rucker ALBUTEROL SULFATE HFA 108 (90 Base) MCG/ACT AERS 2 puff inhale qid prn albuterol sulfate 80299359490 Ketan Rucker IBUPROFEN 800 MG TABS 1 tab oral 3 times daily ibuprofen 05951675861 Ketan Rucker PERIDEX 0.12 % SOLN 10ml oral 2 times a day chlorhexidine gluconate 74530990763 Ketan Rucker NIFEDIPINE ER 30 MG [id number] 1 tab oral daily nifedipine 00143044935 Ketan Rucker gabapentin 600 mg tablet extended release 24 hr 1 tab oral 3 times daily gabapentin Ketan Rucker HYDROXYCHLOROQUINE SULFATE 200 MG TABS 1 tab oral twice daily 11/07 hydroxychloroquine 66046876019 Ketan Rucker LORAZEPAM 0.5 MG TABS 1 tab oral 3 times daily lorazepam 67659877315 Ketan Rucker OMEPRAZOLE 20 MG CPDR 1 cap orally once daily omeprazole 16975038064 Ketan Rucker Medications Administered No information available. [...] Name Date Entry Date CPT-sl STAT Labs [id number] CBC with Differential 2023 CPT-23839 CMP CPT-36596 C- reactive protein CPT-11843 Sedimentation Rate (ESR) 08/11/27 CPT-sl STAT Labs CPT-sl STAT Labs CPT-sl STAT Labs CPT-sl STAT Labs CPT-59664 CMP [id number] CBC with Differential 2022 CPT-15549 C- reactive protein CPT-71628 Sedimentation Rate (ESR) 202 07/14/05 CPT-sl STAT Labs CPT-sl STAT Labs CPT-61423 CMP [id number] CBC with Differential 2022 CPT-24843 C- reactive protein CPT-50736 Vancomycin Trough CPT-sl STAT Labs CPT-sl STAT Labs CPT-17898 CMP [id number] CBC with Differential 2022 CPT-30963 C- reactive protein [id number], [id number] CPK CPT-50043 Sedimentation Rate (ESR) 202 07/12/03 CPT-98017 Vancomycin Trough CPT-sl STAT Labs CPT-sl STAT Labs CPT-08318 CMP CPT-91122 Sedimentation Rate (ESR) 202 07/09/11 CPT-32298 C- reactive protein [id number] CBC with Differential 2022 CPT-sl STAT Labs [...]
--- OUTSIDE RECORDS SUMMARY | 2024-12-30 16:29 | XMS_ITS | Clinical Summary ---
Author Organization [facility] Address [address] [place] [address] Care Team Providers Care Mastic Man Name Role Phone Dario Nugent MD Primary Care Provider [phone] [phone] Allergies Active Allergy Reactions Criticality Noted Date [...] VACCINE (2 of 2) 07/31/2021 06/05/2021 ANNUAL WELLNESS VISIT 07/14/2022 HEPATITIS C SCREENING 07/14/2022 AAA SCREEN ONCE 11/26/2023 COVID-19 Vaccine (4 - 2023-2 5 season) 2024 03/05/2021, 08/02/2020, 07/04/2020 INFLUENZA VACCINE 02/07/2025 03/25/2023, , 02/17/2022, Additional history exists TDAP/TD VACCINES (2 - Td or Tdap) 06/06/2028 019 Medical Devices Implanted Type Area Machinery Cleaner Device Identifier Shelf Expiration Date Model / Serial / Lot Dev Contrl Tiss Stratafix Spiral Pdo Bidir 1 86p66uz - [id number] Implanted:Qty : 1 on 07/16/2022 by Gomez Stratton MD at [facility] Implant Right: Knee [employer] 08/07/2026 [id number] / / [id number] [facility] Bone Simplex/P Full Dose 10/Pk - [id number] Implanted:Qty : 1 on 07/16/2022 by Gomez Stratton MD at [facility] Implant Right: Knee CHUCK LILO 06/09/2024 [id number] / / [id number] Cmt Bone Simplex/P Full Dose 10/Pk - [id number] Implanted:Qty : 1 on 07/16/2022 by Gomez Stratton MD at [facility] Implant Right: Knee CHUCK LILO 10/07/2024 [id number] / / [id number] Cmt Bone Simplex/P Full Dose 10/Pk - [id number] Implanted:Qty : 1 on 07/16/2022 by Gomez Stratton MD at [facility] Implant Right: Knee CHUCK LILO 11/06/2024 [id number] / / [id number] Cmt Bone Simplex/P Full Dose 10/Pk - [id number] Implanted:Qty : 1 on 07/16/2022 by Gomez Stratton MD at [facility] Implant Right: Knee CHUCK LILO 11/06/2024 [id number] / / [id number] Insrt Tib/Kn Triathlon Condy/Stbl A/Poly Sz5 13mm - [id number] Implanted:Qty : 1 on 07/16/2022 by Gomez Stratton MD at [facility] Implant Right: Knee CHUCK LILO 08/29/2025 [id number] / / [id number] Comp Fem Triath Cr No6 Rt - [id number] Implanted:Qty : 1 on 07/16/2022 by Gomez Stratton MD at [facility] Implant Right: Knee CHUCK LILO 03/09/2027 [id number] / / [id number] Cmt Bone Simplex/P Tmycin Fdos 10pk - [id number] Implanted:Qty : 1 on 09/16/2022 by Gomez Stratton MD at [facility] Implant Right: Knee CHUCK LILO [id number] 02/07/2024 [id number] / / [id number] Cmt Bone Simplex/P Tmycin Fdos 10pk - [id number] Implanted:Qty : 1 on 09/16/2022 by Gomez Stratton MD at [facility] Implant Right: Knee CHUCK LILO [id number] 12/08/2023 [id number] / / [id number] Cmt Bone Simplex/P Tmycin Fdos 10pk - [id number] Implanted:Qty : 1 on 09/16/2022 by Gomez Stratton MD at [facility] Implant Right: Knee CHUCK LILO 02/07/2024 [id number] / / [id number] Wax Bone Hemo Aesculap 2.5gm - [id number] Implanted:Qty : 1 on 09/16/2022 by Gomez Stratton MD at [facility] Implant Right: Knee [employer] [id number] 10/07/2026 [id number] / / [id number] Comp Fem Triath Ts Sz5 Rt - [id number] Implanted:Qty : 1 on 09/16/2022 by Gomez Stratton MD at [facility] Implant Right: Knee CHUCK LILO [id number] 02/03/2025 [id number] / / [id number] Aug Fem/Kn Triathlon Totlstbl Dist Sz5 10mm Rt - [id number] Implanted:Qty : 1 on 09/16/2022 by Gomez Stratton MD at [facility] Implant Right: Knee CHUCK LILO [id number] 06/08/2026 [id number] / / [id number] Baseplt Tib Triath Ts No4 - [id number] Implanted:Qty : 1 on 09/16/2022 by Gomez Stratton MD at [facility] Implant Right: Knee CHUCK LILO [id number] 02/26/2027 [id number] / / [id number] Aug Tib/Kn Triath /2blck Rm/Ll Sz 4 5mm - [id number] Implanted:Qty : 1 on 09/16/2022 by Gomez Stratton MD at [facility] Implant Right: Knee CHUCK LILO [id number] 01/05/2027 [id number] / / [id number] Aug Tib/Kn Triath 1/2blck Rl/Lm Sz4 5mm - [id number] Implanted:Qty : 1 on 09/16/2022 by Gomez Stratton MD at [facility] Implant Right: Knee CHUCK LILO [id number] 10/16/2026 [id number] / / [id number] Plug Bone Restr/Cmt W/Hndl Univ 30mm Lg - [id number] - [id number] Implanted:Qty : 1 on 09/16/2022 by Gomez Stratton MD at [facility] Implant Right: Knee CHUCK LILO [id number] 06/09/2027 [id number] / [id number] / [id number] Aug Cone Tib/Kn Triathlon Rev Symm Szb - [id number] Implanted:Qty : 1 on 09/16/2022 by Gomez Stratton MD at [facility] Implant Right: Knee CHUCK LILO [id number] 12/21/2026 [id number] / / [id number] Stem Fem Triath Cmt 66g44bp - [id number] Implanted:Qty : 1 on 09/16/2022 by Gomez Stratton MD at [facility] Implant Right: Knee CHUCK LILO [id number] 07/13/2027 [id number] / / [id number] Ext Stem Triath Kn Totl Cocr Flut 06t26sb - [id number] Implanted:Qty : 1 on 09/16/2022 by Gomez Stratton MD at [facility] Implant Right: Knee CHUCK LILO [id number] 05/19/2027 [id number] / / [id number] Plug Bone Restr/Cmt W/Hndl Univ 24mm Md - [id number] - [id number] Implanted:Qty : 1 on 09/16/2022 by Gomez Stratton MD at [facility] Implant Right: Knee CHUCK LILO [id number] 05/14/2027 [id number] / [id number] / [id number] Aug Fem/Kn Triathlon Totlstbl Dist Sz5 10mm Rt - [id number] Implanted:Qty : 1 on 09/16/2022 by Gomez Stratton MD at [facility] Implant Right: Knee CHUCK LILO [id number] 06/01/2027 [id number] / / [id number] Aug Fem/Kn Triathlon Post Sz5 10mm - [id number] Implanted:Qty : 1 on 09/16/2022 by Gomez Stratton MD at [facility] Implant Right: Knee CHUCK LILO [id number] 06/22/2027 [id number] / / [id number] Aug Fem/Kn Triathlon Post Sz5 10mm - [id number] Implanted:Qty : 1 on 09/16/2022 by Gomez Stratton MD at [facility] Implant Right: Knee CHUCK LILO [id number] 06/22/2027 [id number] / / [id number] Cone Aug Fem/Kn Triathlon Yl4ngm9 Rt - [id number] Implanted:Qty : 1 on 09/16/2022 by Gomez Stratton MD at [facility] Implant Right: Knee CHUCK LILO [id number] 02/15/2027 [id number] / / [id number] Ext Stem Triath Kn Totl Cocr Flut 38u29sf - [id number] Implanted:Qty : 1 on 09/16/2022 by Gomez Stratton MD at [facility] Implant Right: Knee CHUCK LILO [id number] 05/18/2027 [id number] / / [id number] Stem Fem Triath Cmt 32j47sq - [id number] Implanted:Qty : 1 on 09/16/2022 by Gomez Stratton MD at [facility] Implant Right: Knee CHUCK LILO [id number] 05/31/2027 [id number] / / [id number] Insrt Tib Triath X3 Totl Stbl Sz4 13 - [id number] Implanted:Qty : 1 on 09/16/2022 by Gomez Stratton MD at [facility] Implant Right: Knee CHUCK LILO [id number] 12/03/2026 [id number] / / [id number] Dev Contrl Tiss Stratafix Spiral Pdo Bidir 1 99o32ti - [id number] Implanted:Qty : 1 on 09/16/2022 by Gomez Stratton MD at [facility] Implant Right: Knee [employer] [id number] 05/09/2027 [id number] / / [id number] Cmt Bone Simplex/P Tmycin Fdos 10pk - [id number] Implanted:Qty : 1 on 09/16/2022 by Gomez Stratton MD at [facility] Implant Right: Knee CHUCK LILO [id number] 02/07/2024 [id number] / / [id number] Insurance [facility] MEDICARE ADVANTAGE PPO Advance Directives * CPR [...] Of Support Discussed With: Patient Care Teams Mastic Man Relationship Specialty Start Date End Date Dario Nugent MD [address] [facility] [address] [place] [address] PCP - General Family Medicine 07/14/22
--- OUTSIDE RECORDS SUMMARY | 2024-12-30 16:30 | XMS_ITS | Patient Health Record ---
Author Organization [facility] Address [address] [place] [id number] Care Team Providers Care Contact Lens Polisher Name Role Phone Elif Nugent Primary Care Provider Stuart Carlos A Unavailable [phone] JamesDenisha story Unavailable [phone] Allergies No Known Allergies Results Component Value [...] - 38 platlet 178 100 - 400 RBC Morphology, Hematology Reviewed date:03/07/2024 05:05:47 PM Interpretation: Performing Lab: Notes/Report: Test performed by [facility] [address] [place] [address] , [address], [place] [address] Jordan Trammell MD, Fish Hatchery Superintendent CLIA: [id number] Polychromasia Slight Macrocytosis Moderate Poikilocytosis Marked Anisocytosis Slight [place] Cell Few Ovalocytes Few Tear Drop Cells Few Platelet Slide Review Decreased PLT: Large Platelets present. Platelet clumps observed on smear. Please submit a full sodium citrate tube (light blue) in addition to EDTA for all future CBC requests. P-CBC with Diff plus Absolut e Counts Reviewed date:03/07/2024 05:05:47 PM Interpretation:wbc 2.3, rbc 3.49, hgb 12.8, hct 37.4, plat 74 Performing Lab: Notes/Report: Test performed by [facility] [address] [place] [address] , [place] [address] Jordan Trammell MD, Fish Hatchery Superintendent CLIA: [id number] WBC 2.3 3.8-11.5 K/uL Red Blood Cell [...] Absolute Immature Granulocyte 0.01 0.00-0.03 K /uL P-Basic Metabolic Panel (BMP ) Reviewed date:03/07/2024 05:05:46 PM Interpretation:co2- 19 Performing Lab: Notes/Report: Test performed by [facility] [address] [place] [address] , [place] [address] Jordan Trammell MD, Fish Hatchery Superintendent CLIA: [id number] Sodium 135 135-145 mmol/L Potassium 4.4 3.5-5.3 mmol/L Chloride 104 97-108 mmol/L CO2 19 22-32 mmol/L Glucose 83 65-99 mg/dL BUN 12 8-23 mg/dL Creatinine 1.17 0.70-1.30 mg/dL Calcium 9.0 8.6-10.4 mg/dL eGFR by Creatinine 69 >59 mL/min/1.73m2 Medications Medication SIG (Take, Route, Frequency, Duration) [...] 11/13/2024 Encounters Encounter Location Date Provider Diagnosis [address] [id number] 03/02/2024 Elif Nugent Essential hypertensi on I10 ; Centrilobular emphysema J43.2 ; Benign prostatic hyperplasia without lower urinary tract symptoms N40.0 ; Status post right knee replacement Z96.651 ; 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 and Lupus erythematosus L93.0 [facility] [address] [id number] 06/02/2024 Elif Nugent Essential hypertensi on I10 ; Anxiety F41.9 ; Centrilobular emphysema J43.2 ; Status post left knee replacement Z96.652 ; Status post right knee replacement Z96.651 ; Lupus erythematosus L93.0 and Pharyngitis, unspecified etiology J02.[address] [id number] 10/23/2024 Elif Nugent Closed fracture of distal end of femur with routine healing, unspecified fracture morphology, unspecified laterality, subsequent encounter S72.409D ; Localized edema R60.0 and Systemic lupus erythematosus, unspecified SLE type, unspecified organ involvement status M32.9 [facility] [address] [id number] 11/13/2024 Elif Nugent 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 ; Lupus erythematosus L93.0 ; Other chronic pain G89.29 ; Anxiety F41.9 ; Other chronic pain G89.29 and BMI 25.0-25.9,adult Z68.25 [facility] [address] [place], [place] [id number] 01/12/2024 Elif Nugent Other chronic pain G89.29 [facility] [address] [place], [place] [id number] 01/20/2024 J Cosme Nugent Anxiety F41.9 [facility] [address] [place], [place] [id number] 03/07/2024 J Cosme Nugent [facility] [address] [place], [place] [id number] 04/28/2024 Carlos A [place] Anxiety F41.9 [facility] [address] [place], [place] [id number] 05/30/2024 J Cosme Nugent Anxiety F41.9 [facility] [address] [place], [place] [id number] 06/02/2024 J Cosme Nugent [facility] [address] [place], [place] [id number] 08/04/2024 J Cosme Nugent Anxiety F41.9 [facility] [address] [place], [place] [id number] 08/21/2024 J Cosme Nugent [facility] [address] [place] [id number] 09/26/2024 J Cosme Nugent [facility] [address] [place], [place] [id number] 09/29/2024 J Cosme Nugent [facility] [address] [place] [id number] 10/24/2024 J Cosme Nugent [facility] [address] [place] [id number] 10/26/2024 J Cosme Nugent [facility] [address] [place], [place] [id number] 10/26/2024 J Cosme Nugent [facility] [address] [facility] [address] [place], [place] [id number] 10/31/2024 Elif Nugent [facility] [address] [facility] [address] [facility] [address] [place], [place] [id number] 11/09/2024 Elif Nugent [facility] [address] [facility] [address] [facility] [address] [place] [id number] 12/04/2024 Elif Nugent Assessments Encounter Date Diagnosis (ICD Code) Assessment Notes Treatment Notes Treatment Clinical Notes Section Notes 10/23/2024 Closed fracture of distal end of femur with routine healing, unspecified fracture morphology, unspecified laterality, subsequent encounter (ICD-10 - S72.409D) 08/04/2024 Anxiety (ICD-10 - F41.9) 06/02/2024 Essential hypertension (ICD-10 - I10) 06/02/2024 Anxiety (ICD-10 - F41.9) 05/30/2024 Anxiety (ICD-10 - F41.9) 04/28/2024 Anxiety (ICD-10 - F41.9) 03/02/2024 Essential hypertension (ICD-10 - I10) 03/02/2024 Centrilobular emphysema (ICD-10 - J43.2) 01/20/2024 Anxiety (ICD-10 - F41.9) 01/12/2024 Other chronic pain (ICD-10 - G89.29) 11/13/2024 Lupus erythematosus (ICD-10 - L93.0) 11/13/2024 Status post revision of total replacement of right knee (ICD-10 - Z96.651) 10/23/2024 Localized edema (ICD-10 - R60.0) 10/23/2024 Systemic lupus erythematosus, unspecified SLE type, unspecified organ involvement status (ICD-10 - M32.9) 03/02/2024 Benign prostatic hyperplasia without lower urinary tract symptoms (ICD-10 - N40.0) 06/02/2024 Centrilobular emphysema (ICD-10 - J43.2) 11/13/2024 Other chronic pain (ICD-10 - G89.29) 06/02/2024 Status post left knee replacement (ICD-10 - Z96.652) 03/02/2024 Status post right knee replacement (ICD-10 - Z96.651) 11/13/2024 Anxiety (ICD-10 - F41.9) 11/13/2024 Other chronic pain (ICD-10 - G89.29) 03/02/2024 Status post revision of total replacement of right knee (ICD-10 - Z96.651) 06/02/2024 Status post right knee replacement (ICD-10 - Z96.651) 11/13/2024 BMI 25.0-25.9,adult (ICD-10 [...] (CMP) [facility] 05/17/2023 Next Appt Details Provider Name:Bee Hamm ond, 01/01/2025 03:30:00 PM, [address] [facility] [address] [facility], [address], [place], [place], [id number], Provider Name:Elif Zapata er, 01/15/2025 03:45:00 PM, [address] [facility] [address] [facility], [address], [place], [place], [id number], Insurance Providers Payer Name Payer Address Payer Phone Subscriber Number Group Number Insured Name Patient Relationship to Insured Coverage Start Date Coverage End Date [employer] (MEDICAR E) [address] [address] [place] [address] [phone] [id number] ROHAN COWART Self - patient is the [...] left knee replacement surgery, Dr. Jose clarke, [facility] 09/05/2018 right knee replacement surgery, Dr. Sree wisdom [facility] 12/05/2018 EGD with biopsy 11/2012 Revision of right knee repla cement with Explant antibiotic spacer, Dr Stratton 07/16/22 Left periprosthetic femur fracture Hospitalization History Reason Date(Month/Year) [facility] ER - mikaela 04/2020 [facility] ER - fall/colitis 06/13/2019 blacked out at home and was taken to [facility] ER and admitted 10/2011
[2024-12-30] MEDS: HYDROCODONE/APAP 5/325 MG TABLET 1 TAB PO (17:02)
--- NOTE | 2024-12-30 17:32 | CT_ITS ---
PROCEDURE INFORMATION: Exam: CT Pelvis Without Contrast, Skeleton Exam date and time: 12/30/2024 5:59 PM Age: 64 years old Clinical indication: Injury or trauma; Additional info: Rule out periprosthetic fracture TECHNIQUE: Imaging protocol: Computed tomography of the pelvis without contrast. Exam focused on the skeleton. Radiation optimization: All CT scans at this facility use at least one of these dose optimization techniques: automated exposure control; mA and/or kV adjustment per patient size (includes targeted exams where dose is matched to clinical indication); or iterative reconstruction. COMPARISON: CT ABDOMEN PELVIS W CON 12/17/2024 12:50 PM FINDINGS: Intestine: Mild sigmoid diverticulosis without diverticulitis. Vasculature: The arteries demonstrate severe atherosclerotic disease. Urinary bladder: Nonspecific urinary bladder wall thickening. Bones/joints: Postsurgical changes of the left femoral diaphysis. The hardware appears intact. Mild bilateral hip osteoarthrosis. Soft tissues: Tiny fat containing umbilical hernia. IMPRESSION: 1. Postsurgical changes of the left femoral diaphysis. The hardware appears intact. No periprosthetic fracture. 2. Nonspecific urinary bladder wall thickening. Please exclude infection.
--- NOTE | 2024-12-30 17:33 | CT_ITS ---
PROCEDURE INFORMATION: Exam: CT Left Lower Extremity Without Contrast, Thigh Exam date and time: 12/30/2024 6:02 PM Age: 64 years old Clinical indication: R/O periprosthetic fracture TECHNIQUE: Imaging protocol: CT of the left lower extremity without contrast was performed. Exam focused on the thigh. Radiation optimization: All CT scans at this facility use at least one of these dose optimization techniques: automated exposure control; mA and/or kV adjustment per patient size (includes targeted exams where dose is matched to clinical indication); or iterative reconstruction. COMPARISON: CR Femur L 12/30/2024 4:26 PM FINDINGS: Bones/joints: The oblique distal femoral metaphyseal fracture demonstrates bony remodeling and periosteal reaction consistent with healing. Intramedullary joe in the femur with proximal and distal fixation screws. The hardware appears intact. Total left knee arthroplasty. The hardware appears intact. Soft tissues: Unremarkable. Vasculature: The arteries demonstrate moderate atherosclerotic disease. IMPRESSION: The oblique distal femoral metaphyseal fracture demonstrates bony remodeling and periosteal reaction consistent with healing. No acute femoral fracture.
== END 2024-12-30 19:03 | disposition home or self-care (01) ==
PROVIDERS: Emergency Provider Student in an Organized Health Care Education/Training Program; PCP Family Medicine
DX: S76.012A Strain of muscle, fascia and tendon of left hip, initial encounter (principal); F17.210 Nicotine dependence, cigarettes, uncomplicated; W18.40XA Slipping, tripping and stumbling without falling, unspecified, initial encounter
CPT/HCPCS: 72192; 73502; 73552; 73700; 99283; 99285

== ENCOUNTER 2025-01-02 14:43 | Outpatient (CLI) | payer MEDICARE, SELFPAY ==
--- OUTSIDE RECORDS SUMMARY | 2024-11-13 11:45 | XMS_ITS ---
Author Organization [facility] Address [address] [place] [phone] Care Team Providers Care Panel Laminator Name Role Phone Elif Nugent Primary Care Provider Allergies No Known Allergies Results Component Value Reference Range Notes CBC Venipuncture (in house) Reviewed date:11/14/2024 11:37:53 AM Interpretation: Performing Lab: Notes/Report: wbc 3.8 3.5 - 10 lymph 39.2% 15 - 50 mid 8.9% 2 - 15 gran 51.9% 35 - 80 rbc 3.32 3.5 - 5.5 hgb 12.2 11.5 - 16.5 hct 36.3 35 - 55 mcv 109.3 75 - 100 mch 36.9 25 - 35 mchc 33.7 31 - 38 platlet 178 100 - 400 REASON FOR VISIT 3 weeks Medications Medication SIG (Take, Route, Frequency, Duration) Notes Start Date End Date Status Ibuprofen 800 MG 1 tablet with food o r milk as needed Orally 3 times a day; Duration: 90 days Active Medrol 4 MG as directed orally daily; Duration: 6 days 06/02/2024 Not-Taking Narcan 4 MG/0.1ML as directed intranasally once Not-Taking Pantoprazole Sodium 20 MG Take 1 tablet by mouth once daily; Duration: 90 Active Furosemide 40 MG 1 tab(s) orally once a day; Duration: 90 days Active Peridex 0.12 % 10 ml orally 2 times a day; Duration: 30 day(s) Active NIFEdipine ER 30 MG Take 1 tablet by mouth once daily Once a day; Duration: 90 days Active amLODIPine Besylate 2.5 MG 1 tab(s) oral ly twice a day Active Albuterol Sulfate HFA 108 (90 Base) MCG/ACT 2 puff(s) inhaled qid prn Active Hydroxychloroquine Sulfate 200 MG Take 1 tablet by mouth twice daily; Duration: 90 Active BIFIDOBACTERIUM-LACTOBACILL US - 1 CAP(S) ORALLY ONCE A DAY Active Aspirin 81 MG 1 tab(s) orally once a day; Duration: 30 day(s) Active Vitamin D3 25 MCG 1 tab(s) orally once a day; Duration: 30 day(s) Active Melatonin 3 MG 1 tab(s) orally once a day (at bedtime) Active Docusate Sodium 100 MG 1 cap(s) orally 2 times a day Active Gabapentin 600 MG 1 tab(s) orally 3 times a day 11/13/2024 Active LORazepam 0.5 MG 1 tab(s) orally 3 times a day; Duration: 30 day(s) 11/13/2024 Active Potassium Chloride ER 10 MEQ 1 tablet with food Orally Once a day 11/01/2023 Active Vital Signs Blood pressure systolic 102 mm Hg 11/14/19 25 Blood pressure diastolic 56 mm Hg 025 Heart Rate 88 /min 11/13/2024 Height 71.50 in 11/13/2024 Weight 182.0 lbs 11/13/2024 BMI 25.03 kg/m2 11/13/2024 Encounters Encounter Location Date Provider Diagnosis [facility] [address] [phone] 11/13/2024 Elif Nugent 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 ; Lupus erythematosus L93.0 ; Other chronic pain G89.29 ; Anxiety F41.9 ; Other chronic pain G89.29 and BMI 25.0-25.9,adult Z68.25 Assessments Encounter Date Diagnosis (ICD Code) Assessment Notes Treatment Notes Treatment Clinical Notes Section Notes 11/13/2024 Status post revision of total replacement of right knee (ICD-10 - Z96.651) 11/13/2024 Lupus erythematosus (ICD-10 - L93.0) 11/13/2024 Other chronic pain (ICD-10 - G89.29) 11/13/2024 Anxiety (ICD-10 - F41.9) 11/13/2024 Other chronic pain (ICD-10 - G89.29) 11/13/2024 BMI 25.0-25.9,adult (ICD-10 - Z68.25) Plan Of Treatment Medication Medication Name Sig Start Date Stop Date Notes Gabapentin 600 MG 1 tab(s) orally 3 times a day 11/13/2024 LORazepam 0.5 MG 1 tab(s) orally 3 ti mes a day; Duration: 30 day(s) 11/13/2024 Pending Test Test Name Order Date P-Comprehensive Metabolic Panel (CMP) Next Appt Details Follow Up: 2 Months, Reason: Provider Name:Elif Zapata er, 01/15/2025 03:45:00 PM, [address], [place], [place], [id number], Progress Notes * ROHAN COWARTDOB:1960 (64 yo M)Acc No.[id number]:11/13/2024 Progress Notes Patient: LUIS MANUEL PUGHER Provider: Elif Nugent M.D. :1960 A ge:63 Y S ex:Male Date:11/13/2024 Address:[address] [address], [place] Subjective: * Chief Complaints: * 1 . 3 weeks. * HPI: C ardiology: The patient is here for a follow-up on edema. Pt states he is still having swelling in his feet and ankles. Pt states the pain in the left leg is worse with sitting and trying to walk. Pt rates the pain a 10/17. 63 year old male presents with c/o Leg Edema. Denies : Chest Pain. D enies : Short of Breath. D enies : Dizziness. D enies : Palpitations. * ROS: D ERMATOLOGY: no R luz. [...] , left knee replacement surgery, Dr. Diaz, [facility] 09/05/2018, right knee replacement surgery, Dr. Diaz [facility] 12/05/2018, EGD with biopsy 11/2012, Revision of right knee replacement with Explant antibiotic spacer, Dr Stratton 07/16/22, Left periprosthetic femur fracture 09/25/24. * Hospitalization/Major Diagno stic Procedure: b lacked out at home and was taken to [facility] ER and admitted 10/2011, [facility] ER - fall/colitis 06/13/2019, [facility] ER - mikaela 04/2020. * Family History: [...] orally 2 times a day , Taking Hydroxychloroquine Sulfate 200 MG Tablet Take 1 tablet by mouth twice daily , Taking Pantoprazole Sodium 20 MG Tablet Delayed Release Take 1 tablet by mouth once daily , Taking LORazepam 0.5 MG Tablet 1 tab(s) orally 3 times a day , Taking Furosemide 40 MG Tablet 1 tab(s) orally once a day , Taking Ibuprofen 800 MG Tablet 1 tablet with food or milk as needed Orally 3 times a day , Not-Taking Medrol 4 MG Tablet Therapy Pack as directed orally daily , Not-Taking Narcan 4 MG/0.1ML Liquid as directed intranasally once * Allergies: N .K.D.A. Objective: * Vitals: W t: 182.0, Temp: 98.2, BP: 102/56, HR: 88, O2 Sat: 100% on RA, Nurse: CARLOS, Ht: 71.50, BMI:25.03. * Examination: G eneral Examination: General Appearance: N AD. H EENT: u nremarkable.?Oral cavity: n o lesions, mucosa moist and WNL, no erythema. N sarina: s upple, no lymphadenopathy. C hest: n ormal shape and expansion. H eart: R SR. L ungs: c lear to auscultation. A bdomen: soft and nontender, no organomegaly or masses. N eurologic Exam: w heelchair. S kin: n ormal, no rash. P eripheral pulses: n ormal .?Back: mild dorsal kyphosis. E xtremities: 3 + leg edema, but improved!. ? Assessment: * Assessment: 1. 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 L upus erythematosus - L93.0 3 . O ther chronic pain - G89.29 ? 4 . A nxiety - F41.9 5 . O ther chronic pain - G89.29 ?6. B MT 25.0-25.9,adult - Z68.25 Plan: * Treatment: Value Reference Range w bc 3.8 3.5 - 10 * l ymph 39.2% 15 - 50 * m id 8.9% 2 - 15 * g ran 51.9% 35 - 80 * r bc 3.32 3.5 - 5.5 * h gb 12.2 11.5 - 16.5 * h ct 36.3 35 - 55 * m cv 109.3 75 - 100 * m ch 36.9 25 - 35 * m chc 33.7 31 - 38 * p latlet 178 100 - 400 * Lisa Cowan 11/13/2024 05:55:4 0 PM EDT > 2.?Other chronic pain? Refill Gabapentin Tablet, 600 MG, 1 tab(s), orally, 3 times a day, 90, Refills 3.??3.?Anxiety? Refill LORazepam Tablet, 0.5 MG, 1 tab(s), orally, 3 times a day, 30 day(s), 90 Tablet, Refills 1. ? * Labs: * L ab: P-Comprehensive Metabolic Panel (CMP) * Procedure Codes: G 2211 Complex e/[place], [address] CBC WITH AUTO DIFF, 10082 VENIPUNCT, ROUTINE*, G8420 BMI<30 AND >=22 CALC & DOCU, G8783 BP SCR PRFRM RCMDD DEFIND SCR INTVL, G8752 MOST RECENT SYSTOLIC BP < 140MM HG, G8754 MOST RECENT DIASTOLIC BP < 90MM HG * Follow Up: 2 Months * Images: Billing Information: * Visit Code: 19735 Office Visit, Est Pt., Level 4. * Procedure Codes: G2211 Complex e/[place]. [address] CBC WITH AUTO DIFF. 99458 VENIPUNCT, ROUTINE*. G8420 BMI<30 AND >=22 CALC & DOCU. G8783 BP SCR PRFRM RCMDD DEFIND SCR INTVL. G8752 MOST RECENT SYSTOLIC BP < 140MM HG. G8754 MOST RECENT DIASTOLIC BP < 90MM HG. * Electronic signature of Elif Nugent MD on 01/02/2025 at 02:45 PM EDT Sign off status: Pending * Provider: Elif Nugent M.D. Date: 11/13/2024 Generated for Lui palomo/Angelika/Dorianitting on: 01/02/2025 02:45 PM EDT History and Physical Notes * HPI (History of Present Illness) Category Sub-Category Detail Notes Category Not es Cardiology Short of Breath Chest Pain Palpitations Dizziness Leg Edema Examination Category Sub-Category Detail Notes Category Not es General Examination HEENT: unremarkable Heart: RSR Lungs: clear to auscultatio n Abdomen: soft and nontender, no organomegaly or masses Extremities: 3+ leg edema, but im proved! General Appearance: NAD Skin: normal, no rash Neurologic Exam: wheelchair Neck: supple, no lymphaden opathy Oral cavity: no lesions, mucosa m oist and WNL, no erythema Peripheral pulses: normal Back: mild dorsal kyphosis Chest: normal shape and exp ansion
--- OUTSIDE RECORDS SUMMARY | 2024-11-30 10:45 | XMS_ITS ---
Author Organization [facility] Address [address] [facility] [address] [facility] [address] [place] [phone] Care Team Providers Care Assembler Metal Furniture Name Role Phone Elif Nugent Primary Care Provider Denisha Guan [phone] Allergies No Known Allergies REASON FOR VISIT 3 weeks Encounters Encounter Location Date Provider Diagnosis [facility] [address] [facility] [address] [facility] [address] [place] [id number] 11/30/2024 Denisha Guan Plan Of Treatment Next Appt Details Provider Name:Elif Zapata er, 01/15/2025 03:45:00 PM, [address] [facility] [address] [facility], [address], [place], [id number], Progress Notes * ROHAN COWARTDOB:1960 (64 yo M)Acc No.[id number]:11/30/2024 Progress Notes Patient: ROHAN PUGH Provider: CAT Degroot :1960 A ge:64 Y S ex:Male Date:11/30/2024 Address:[facility] [address] [facility] Pcp:Elif Nugent Subjective: * Chief Complaints: * [...] out at home and was taken to [facility] ER and admitted 10/2011, [facility] ER - fall/colitis 06/13/2019, [facility] ER - m[place]aela 04/2020. * Family [...] * Electronic signature of CAT Landry on 01/02/2025 at 02:45 PM EDT Sign off status: Pending * Provider: CAT Degroot Date: 11/30/2024 Generated for Lui palomo/Angelika/Dorianitting on: 01/02/2025 02:45 PM EDT
--- OUTSIDE RECORDS SUMMARY | 2025-01-01 11:30 | XMS_ITS ---
Author Organization [facility] Address [address] [facility] [address] [place] [id number] Care Team Providers Care Note Taker Name Role Phone Elif Nugent Primary Care Provider [phone] Bee Cross Unavailable [phone] Allergies No Known Allergies REASON FOR VISIT [facility] ER Follow Up Medications Medication SIG (Take, [...] Notes Problem Adult failure to thrive syndrome (756790024) Adult failure to thrive (R62.7) Active confirmed Vital Signs Weight 182 lbs 01/01/2025 Blood pressure systolic 130 mm Hg 01/02/20 Blood pressure diastolic 76 mm Hg 025 Heart Rate 51 /min 01/01/2025 Height 71.50 in 01/01/2025 BMI 25.03 kg/m2 01/01/2025 Encounters Encounter Location Date Provider Diagnosis [facility] [address] [facility] [address] [place], [place] [id number] 01/01/2025 Bee Cross At high risk for [...] [address], [address], [place], [place], [id number], Progress Notes * ROHAN COWARTDOB:1960 (64 yo M)Acc No.[id number]:01/01/2025 Patient: ROHAN PUGH Provider: Nikki yung CrossMARTIN :1960 A ge:64 Y S ex:Male Date:01/01/2025 Address:[place] [address], [address] [facility], [id number] Pcp:Elif Nugent Subjective: * Chief Complaints: * 1 . [facility] ER Follow Up. * HPI: H PI: [...] , left knee replacement surgery, Dr. Diaz, [facility] 09/05/2018, right knee replacement surgery, Dr. Diaz [facility] 12/05/2018, EGD with biopsy 11/2012, Revision of right knee replacement with Explant antibiotic spacer, Dr Stratton 07/16/22, Left periprosthetic femur fracture 09/25/24. * Hospitalization/Major Diagno stic Procedure: b lacked out at home and was taken to [facility] ER and admitted 10/2011, [facility] ER - fall/colitis 06/13/2019, [facility] ER - mikaela 04/2020. * Family History: [...] % (Auto) 54.6, Lymph % (Auto) 31.8, [place] % (Auto) 10.3 H, Eos % (Auto) 2.3, Baso % (Auto) 1.0, Neut # (Auto) 1.7 L, Lymph # (Auto) 1.0, [place] # (Auto) 0.3, Eos # (Auto) 0.1, [...] * Images: Billing Information: * Visit Code: 77496 Office Visit, Est Pt., Level 4. * Procedure Codes: * Electronic signature of Georgia Cross APRN on 01/02/2025 at 02:45 PM EDT Sign off status: Pending * Provider: MARTIN Bradshaw Date: 01/01/2025 Generated for Lui palomo/Angelika/Dorianitting on: 0 01/02/2025 02:45 PM EDT History and Physical Notes * HPI (History of Present Illness) Category Sub-Category Detail Notes Category Not es HPI Patient is here today for [facility] ER fu on 12/17 see pts docs [...] wheelchair Neurologic Exam: alert and oriented LABS [facility] ER labs 12/17/24 12:20: WBC 3.0 L, RBC 3.53 L, Hgb 12.9 L, Hct 37.0 L, MCV 104.8 H, MCH 36.5 H, MCHC 34.9, RDW 12.2, Plt Count 91 L, MPV 12.3 H, Neut % (Auto) 54.6, Lymph % (Auto) 31.8, [place] % (Auto) 10.3 H, Eos % (Auto) 2.3, Baso % (Auto) 1.0, Neut # (Auto) 1.7 L, Lymph # (Auto) 1.0, [place] # (Auto) 0.3, Eos # (Auto) 0.1, [...]
--- OUTSIDE RECORDS SUMMARY | 2025-01-02 14:45 | XMS_ITS | Clinical Summary ---
Author Organization [employer] ([place], [place], [place], [place]) Address [address] [place] [address] Care Team Providers Care Cloth Dyer Name Role Phone Dario Nugent MD Primary Care Provider [phone] Allergies Active Allergy Reactions Criticality Noted Date [...] your living situation today? I have a [facility] place to live 09/25/2024 Think [...] Do you speak a language other than [place]an at [facility]? No [...] Aneurysm (A AA) Screen 11/26/2023 COVID-19 VACCINE (4 - season) 2024 03/05/2021, 08/02/2020, 07/04/2020 Falls Risk Screening 05/10/2024 Medicare IPPE ([facility]) [id number] 09/07/2024 Influenza Vaccine (#1) 2025 , 02/17/2022, 04/17/2021 Tobacco Cessation Counseling and Screening (12+) 09/29/2025 09/29/2024 DTAP/TDAP/TD VACCINES (2 - T d or Tdap) 06/06/2028 06/06/2018 Medical Devices Implanted Type Area Supervisor Real Estate Office Device Identifier Shelf Expiration Date Model / Serial / Lot Scr Lckng 5.0x60 04.045.060ts - [id number] Implanted:Qty: 1 on 09/26/2024 by Chuy Johnson MD at [facility] IMPLANTS Left: Knee SYNTHES:SYNTHES [facility] 10/07/2028 04.045.060 TS / / [id number] Nail Rfna [id number] 10 Deg Bend 04.233.041s - [id number] Implanted:Qty: 1 on 09/26/2024 by Chuy Johnson MD at [facility] IMPLANTS Left: Knee SYNTHES:SYNTHES [place] 06/09/2026 04.233.041 S / / [id number] Scr Lckng 5.0x36 Xl25 Strl 04.045.036ts - [id number] Implanted:Qty: 1 on 09/26/2024 by Chuy Johnson MD at [facility] IMPLANTS Left: Knee SYNTHES:[employer] [place] 02/06/2029 04.045.036 TS / / [id number] End Cap Rfna 0mm Strl 04.233.000s - [id number] Implanted:Qty: 1 on 09/26/2024 by Chuy Johnson MD at [facility] IMPLANTS Left: Knee SYNTHES:SY[employer]THES [place] 03/09/2034 04.233.000 S / / [id number] Scr Sg 5.0x66mm 04.045.066ts - [id number] Implanted:Qty: 1 on 09/26/2024 by Chuy Johnson MD at [facility] IMPLANTS Left: Knee SYNTHES:SY[employer]ES [place] 04.045.066 TS / / N/A Scr Lckng 5.0x38 Xl25 Strl 04.045.038ts - [id number] Implanted:Qty: 1 on 09/26/2024 by Chuy Johnson MD at [facility] IMPLANTS Left: Knee SYNTHES:SY[employer] [place] 04.045.038 TS / / N/A Scr Sg For Im Nail /[id number] 04.045.088s - [id number] Implanted:Qty: 1 on 09/26/2024 by Chuy Johnson MD at [facility] IMPLANTS Left: Knee SYNTHES:SY[employer]ES [place] 04.045.088 S / / N/A Insurance [employer] MEDICARE PPO Advance Directives For more information, please contact: [phone] * Full Code (Latest Code Status on File) Date Activated Date Inactivated Comments 09/25/2024 10:26 AM 09/29/2024 6:46 PM Healthcare Agents on File Name Relationship Healthcare Agent Relationshi p Communication Quynh De La Cruz Other Healthcare Decision-Maker Care Teams Cloth Dyer Relationship Specialty Start Date End Date Dario Nugent MD [address] [place] [address] PCP - General Family Medicine 09/25/24
--- OUTSIDE RECORDS SUMMARY | 2025-01-02 14:45 | XMS_ITS | Referral Summary ---
Author Organization [employer] ([place], [place], [place], [place]) Address [address] [place] [address] Care Team Providers Care Lead Applier Name Role Phone Dario Nugent MD Primary Care Provider [phone] [phone] Allergies Active Allergy Reactions Criticality Noted Date [...] your living situation today? I have a [facility] place to live 09/25/2024 Think about [...] Do you speak a language other than [place] Korean at [facility]? No 09/25/2024 Do you want [...] on file Medical Devices Implanted Type Area Fixer Boarding Room Device Identifier Shelf Expiration Date Model / Serial / Lot Scr Lckng 5.0x60 04.045.060ts - [id number] Implanted:Qty: 1 on 09/26/2024 by Chuy Johnson MD at [facility] IMPLANTS Left: Knee SYNTHES:[employer] [place] 10/07/2028 04.045.060 TS / / [id number] Nail Rfna 18b272ov 10 Deg Bend 04.233.041s - [id number] Implanted:Qty: 1 on 09/26/2024 by Chuy Johnson MD at [facility] IMPLANTS Left: Knee SYNTHES:[employer]ES [place] 06/09/2026 04.233.041 S / / [id number] Scr Lckng 5.0x36 Xl25 Strl 04.045.036ts - [id number] Implanted:Qty: 1 on 09/26/2024 by Chuy Johnson MD at [facility] IMPLANTS Left: Knee SYNTHES:SY[employer]ES [place] 02/06/2029 04.045.036 TS / / [id number] End Cap Rfna 0mm Strl 04.233.000s - [id number] Implanted:Qty: 1 on 09/26/2024 by Chuy Johnson MD at [facility] IMPLANTS Left: Knee SYNTHES:SY[employer]ES [place] 03/09/2034 04.233.000 S / / [id number] Scr Sg 5.0x66mm 04.045.066ts - [id number] Implanted:Qty: 1 on 09/26/2024 by Chuy Johnson MD at [facility] IMPLANTS Left: Knee SYNTHES:[employer]ES [place] 04.045.066 TS / / N/A Scr Lckng 5.0x38 Xl25 Strl 04.045.038ts - [id number] Implanted:Qty: 1 on 09/26/2024 by Chuy Johnson MD at [facility] IMPLANTS Left: Knee SYNTHES:[employer]ES [place] 04.045.038 TS / / N/A Scr Sg For Im Nail 5/88/Xl25 04.045.088s - [id number] Implanted:Qty: 1 on 09/26/2024 by Chuy Johnson MD at [facility] IMPLANTS Left: Knee SYNTHES:SY[employer]THES [place] 04.045.088 S / / N/A Insurance [facility] MEDICARE PPO Advance Directives For more information, please contact: [phone] * Full Code (Latest Code Status on File) Date Activated Date Inactivated Comments 09/25/2024 10:26 AM 09/29/2024 6:46 PM Healthcare Agents on File Name Relationship Healthcare Agent [facility] Communication Quynh De La Cruz Other Healthcare Decision-Maker Care Teams Lead Applier Relationship Specialty Start Date End Date Dario Nugent MD [address] [place] [address] PCP - General Family Medicine 09/25/24
--- OUTSIDE RECORDS SUMMARY | 2025-01-02 14:46 | XMS_ITS | Clinical Summary ---
Author Organization [facility] Address [address] [place] [address] Care Team Providers Care Residential Insurance Inspector Name Role Phone Dario Nugent MD Primary Care Provider [phone] Allergies Active Allergy Reactions Criticality Noted Date [...] 06/06/2028 019 Medical Devices Implanted Type Area Tufting Machine Fixer Device Identifier Shelf Expiration Date Model / Serial / Lot Dev Contrl Tiss Stratafix Spiral Pdo Bidir 1 [id number] - [id number] Implanted:Qty : 1 on 07/16/2022 by Gomez Stratton MD at [facility] Implant Right: Knee [employer] J 08/07/2026 [id number] / / [id number] Bone Simplex/P Full Dose 10/Pk - [id number] Implanted:Qty : 1 on 07/16/2022 by Gomez Stratton MD at [facility] Implant Right: Knee CHUCK LILO 06/09/2024 [id number] / / [id number] Cmt Bone Simplex/P Full Dose 10/Pk - [id number] Implanted:Qty : 1 on 07/16/2022 by Gomez Stratton MD at [facility] Implant Right: Knee CHUCK LILO 10/07/2024 [id number] / / [id number] Cmt Bone Simplex/P Full Dose 10/Pk - [id number] Implanted:Qty : 1 on 07/16/2022 by Gomez Stratton MD at [facility] Implant Right: Knee CHUCK LILO 11/06/2024 [id number] / / [id number] Cmt Bone Simplex/P Full Dose 10/Pk - [id number] Implanted:Qty : 1 on 07/16/2022 by Gomez Stratton MD at [facility] Implant Right: Knee CHUCK LILO 11/06/2024 [id number] / / [id number] Insrt Tib/Kn Triathlon Condy/Stbl A/Poly Sz5 13mm - [id number] Implanted:Qty : 1 on 07/16/2022 by Gomez Stratton MD at [facility] Implant Right: Knee CHUCK LILO 08/29/2025 [id number] / / [id number] Comp Fem Triath Cr No6 Rt - [id number] Implanted:Qty : 1 on 07/16/2022 by Gomez Stratton MD at [facility] Implant Right: Knee CHUCK LILO 03/09/2027 [id number] / / [id number] Cmt Bone Simplex/P Tmycin Fdos 10pk - [id number] Implanted:Qty : 1 on 09/16/2022 by Gomez Stratton MD at [facility] Implant Right: Knee CHUCK LILO [id number] 02/07/2024 [id number] / / [id number] Cmt Bone Simplex/P Tmycin Fdos 10pk - [id number] Implanted:Qty : 1 on 09/16/2022 by Gomez Stratton MD at [facility] Implant Right: Knee CHUCK LILO [id number] 12/08/2023 [id number] / / [id number] Cmt Bone Simplex/P Tmycin Fdos 10pk - [id number] Implanted:Qty : 1 on 09/16/2022 by Gomez Stratton MD at [facility] Implant Right: Knee CHUCK LILO 02/07/2024 [id number] / / [id number] Wax Bone Hemo Aesculap 2.5gm - [id number] Implanted:Qty : 1 on 09/16/2022 by Gomez Stratton MD at [facility] Implant Right: Knee [employer] [id number] 10/07/2026 [id number] / / [id number] Comp Fem Triath Ts Sz5 Rt - [id number] Implanted:Qty : 1 on 09/16/2022 by Gomez Stratton MD at [facility] Implant Right: Knee CHUCK LILO [id number] 02/03/2025 [id number] / / [id number] Aug Fem/Kn Triathlon Totlstbl Dist Sz5 10mm Rt - [id number] Implanted:Qty : 1 on 09/16/2022 by Gomez Stratton MD at [facility] Implant Right: Knee CHUCK LILO [id number] 06/08/2026 [id number] / / [id number] Baseplt Tib Triath Ts No4 - [id number] Implanted:Qty : 1 on 09/16/2022 by Gomez Stratton MD at [facility] Implant Right: Knee CHUCK LILO [id number] 02/26/2027 [id number] / / [id number] Aug Tib/Kn Triath /2blck Rm/Ll Sz 4 5mm - [id number] Implanted:Qty : 1 on 09/16/2022 by Gomez Stratton MD at [facility] Implant Right: Knee CHUCK LILO [id number] 01/05/2027 [id number] / / [id number] Aug Tib/Kn Triath 1/2blck Rl/Lm Sz4 5mm - [id number] Implanted:Qty : 1 on 09/16/2022 by Gomez Stratton MD at [facility] Implant Right: Knee CHUCK LILO [id number] 10/16/2026 [id number] / / [id number] Plug Bone Restr/Cmt W/Hndl Univ 30mm Lg - [id number] - [id number] Implanted:Qty : 1 on 09/16/2022 by Gomez Stratton MD at [facility] Implant Right: Knee CHUCK LILO [id number] 06/09/2027 [id number] / [id number] / [id number] Aug Cone Tib/Kn Triathlon Rev Symm Szb - [id number] Implanted:Qty : 1 on 09/16/2022 by Gomez Stratton MD at [facility] Implant Right: Knee CHUCK LILO [id number] 12/21/2026 [id number] / / [id number] Stem Fem Triath Cmt 69v61ws - [id number] Implanted:Qty : 1 on 09/16/2022 by Gomez Stratton MD at [facility] Implant Right: Knee CHUCK LILO [id number] 07/13/2027 [id number] / / [id number] Ext Stem Triath Kn Totl Cocr Flut 65y67ri - [id number] Implanted:Qty : 1 on 09/16/2022 by Gomez Stratton MD at [facility] Implant Right: Knee CHUCK LILO [id number] 05/19/2027 [id number] / / [id number] Plug Bone Restr/Cmt W/Hndl Univ 24mm Md - [id number] - [id number] Implanted:Qty : 1 on 09/16/2022 by Gomez Stratton MD at [facility] Implant Right: Knee CHUCK LILO [id number] 05/14/2027 [id number] / [id number] / [id number] Aug Fem/Kn Triathlon Totlstbl Dist Sz5 10mm Rt - [id number] Implanted:Qty : 1 on 09/16/2022 by Gomez Stratton MD at [facility] Implant Right: Knee CHUCK LILO [id number] 06/01/2027 [id number] / / [id number] Aug Fem/Kn Triathlon Post Sz5 10mm - [id number] Implanted:Qty : 1 on 09/16/2022 by Gomez Stratton MD at [facility] Implant Right: Knee CHUCK LILO [id number] 06/22/2027 [id number] / / [id number] Aug Fem/Kn Triathlon Post Sz5 10mm - [id number] Implanted:Qty : 1 on 09/16/2022 by Gomez Stratton MD at [facility] Implant Right: Knee CHUCK LILO [id number] 06/22/2027 [id number] / / [id number] Cone Aug Fem/Kn Triathlon Tk8aqt4 Rt - [id number] Implanted:Qty : 1 on 09/16/2022 by Gomez Stratton MD at [facility] Implant Right: Knee CHUCK LILO [id number] 02/15/2027 [id number] / / [id number] Ext Stem Triath Kn Totl Cocr Flut 86n54vu - [id number] Implanted:Qty : 1 on 09/16/2022 by Gomez Stratton MD at [facility] Implant Right: Knee CHUCK LILO [id number] 05/18/2027 [id number] / / [id number] Stem Fem Triath Cmt 85m57pd - [id number] Implanted:Qty : 1 on 09/16/2022 by Gomez Stratton MD at [facility] Implant Right: Knee CHUCK LILO [id number] 05/31/2027 [id number] / / [id number] Insrt Tib Triath X3 Totl Stbl Sz4 13 - [id number] Implanted:Qty : 1 on 09/16/2022 by Gomez Stratton MD at [facility] Implant Right: Knee CHUCK LILO [id number] 12/03/2026 [id number] / / [id number] Dev Contrl Tiss Stratafix Spiral Pdo Bidir 1 40e77bs - [id number] Implanted:Qty : 1 on 09/16/2022 by Gomez Stratton MD at [facility] Implant Right: Knee [employer] DIV OF FLAVIO [id number] 05/09/2027 [id number] / / [id number] Cmt Bone Simplex/P Tmycin Fdos 10pk - [id number] Implanted:Qty : 1 on 09/16/2022 by Gomez Stratton MD at [facility] Implant Right: Knee CHUCK LILO [id number] 02/07/2024 [id number] / / [id number] Insurance [facility] MEDICARE ADVANTAGE PPO Advance Directives * CPR [...] Of Support Discussed With: Patient Care Teams Residential Insurance Inspector Relationship Specialty Start Date End Date Dario Nugent MD [address] [facility] [address] [place] [address] PCP - General Family Medicine 07/14/22
--- OUTSIDE RECORDS SUMMARY | 2025-01-02 14:46 | XMS_ITS | Clinical Summary ---
Author Organization Healthcare Address [address] [place] [address] Care Team Providers Care Quality Reviewer Name Role Phone Dario Nugent MD Primary Care Provider Allergies Active Allergy Reactions Criticality Noted Date [...] UKY-Zoster Vaccines (2 of 2) 07/31/2021 06/05/2021 ELK-FWFIX-21 Vaccine (4 - season) 2024 03/05/2021, 08/02/2020, [...] patient's age to complete this topic Insurance REPLACED BY [facility] [place] [address] Care Teams Quality Reviewer Relationship Specialty Start Date End Date Dario Nugent MD [address] [place] [address] PCP - General 09/20/20
--- OUTSIDE RECORDS SUMMARY | 2025-01-02 14:46 | XMS_ITS | Clinical Summary ---
Author Organization [facility] Address [address] [place] [address] Phone Care Team Providers Care Resident Physician In Radiology Name Role Phone Nadja Pressley RN Unavailable Unavailable Conditions or Problems Problem Name Problem Code Onset Date Status Entry Date Provider Comment Standard Description Annotate Adverse drug reaction 99108637 (SNOMED CT) 09/29 Active 09/29 Dipesh Walker MD Adverse reaction to drug Eosinophilia , unspecified 602379258 (SNOMED CT) 09/29 Active 09/29 Dipesh Walker MD Eosinophil count above reference range Health advice, education, or counseling 148352542 (SNOMED CT) 08/04 Active 08/04 Ketan Rucker Procedure carried out on subject Thrombocytop enia 208703566 (SNOMED CT) 06/17 Active 06/17 Dipesh Walker MD Thrombocytopeni c disorder Leukopenia 87264810 (SNOMED CT) 06/17 Active 06/17 Dipesh Walker MD Leukopenia Hyperpigment ation of skin 30346586 (SNOMED CT) 06/17 Active 06/17 Dipesh Walker MD Hyperpigmentati on of skin Discoid lupus 395692392 (SNOMED CT) 01/21 Active 01/21 Ketan Rucker Discoid lupus erythematosus Hereditary or idiopathic neuropathy 666322480 (SNOMED CT) 09/18 Active 09/18 Ele Romano Neuropathy COPD 68342909 (SNOMED CT) 09/18 Active 09/18 Ele Romano Chronic obstructive pulmonary disease Smoking cessation counseling 714254244 (SNOMED CT) 05/21 Resolved 05/21 Ele Juan Antonio Procedure carried out on subject Adverse drug reaction 18927257 (SNOMED CT) 08/06 Resolved 08/06 Ele Juan Antonio Adverse reaction to drug Knee, right, subsequent encounter, infection/in flammatory reaction due to internal joint prosthesis T84.53xD (ICD-10-CM ) 05/19 Active 05/19 Ele Juan Antonio Infection and inflammatory reaction due to internal right knee prosthesis, subsequent encounter Myositis 54475984 (SNOMED CT) 08/06 Resolved 08/06 Ele Juan Antonio Myositis Nicotine dependence, cigarettes F17.210 (ICD-10-CM ) 05/21 Active 05/21 Ele Juan Antonio Nicotine dependence, cigarettes, uncomplicated Staphylococc al septic arthritis, right knee (identify type of staph) M00.061 (ICD-10-CM ) 06/25 Active 06/25 Ele Juan Antonio Staphylococcal arthritis, right knee Adverse drug reaction 56776222 (SNOMED CT) 08/06 Removed 08/06 Dipesh Walker MD Adverse reaction to drug Myositis 00757657 (SNOMED CT) 08/06 Removed 08/06 Dipesh Walker MD Myositis Staphylococc al infection 81268020 (SNOMED CT) 06/25 Active 06/25 Dipesh Walker MD Staphylococcal infectious disease Septic arthritis, right knee 34132285 (SNOMED CT) 06/25 Inactive 06/25 Dipesh Walker MD Bacterial arthritis Tobacco abuse 63167896 (SNOMED CT) 05/21 Inactive 05/21 Dipesh Walker MD Tobacco dependence syndrome Smoking cessation counseling 816393755 (SNOMED CT) 05/21 Removed 05/21 Dipesh Walker MD Procedure carried out on subject Effusion, right knee M25.461 (ICD-10-CM ) 05/19 Active 05/19 Ele Juan Antonio Effusion, right knee Benign Essential Hypertension 64427340 (SNOMED CT) 05/19 Active 05/19 Ele Romano Benign hypertension Knee, right, initial encounter(s) , infection/in flammatory reaction due to internal joint prosthesis T84.53xA (ICD-10-CM ) 05/19 Inactive 05/19 Ele Romano Infection and inflammatory reaction due to internal right knee prosthesis, initial encounter Cellulitis of RLE 543065038 (SNOMED CT) 05/19 Active 05/19 Ele Romano Cellulitis of lower limb Medications Medication Instructions Start Date Stop Date Generic Name NDC Provider HYDROXYCHLOROQUINE SULFATE 200 MG TABS 1 tab oral twice daily 06/17 hydroxychloroquine 55611298883 Ketan Rucker MINOCYCLINE HCL 100 MG CAPS Take 1 capsule by mouth twice a day 01/21 minocycline 74981971166 Dipesh Walker MD DOXYCYCLINE HYCLATE 100 MG CAPS Take 1 capsule by mouth twice a day 09/24 doxycycline hyclate 82655790168 Dipesh Walker MD ASPIRIN EC 81 MG TBEC 1q12h aspirin 28203633890 [facility] DOXYCYCLINE MONOHYDRATE 100 MG CAPS 1bid doxycycline monohydrate 45327180916 Braden Bennett FOLIC ACID 1 MG TABS 1qd folic acid 24742435334 [facility] MELOX[facility] 15 MG TABS 1qd,wm meloxicam 04357165928 [facility] ONDANSETRON HCL 4 MG TABS 1q6h,prn ondansetron hcl 98907857479 Braden Bennett OXYCODONE HCL 5 MG TABS 1q4h,prn oxycodone 98912536835 Braden Bennett PANTOPRAZOLE SODIUM 40 MG TBEC 1am pantoprazole 76570763890 Braden Bennett TAMSULOSIN HCL 0.4 MG CAPS 1hs tamsulosin 77521417579 Braden Bennett TRAMADOL HCL 50 MG TABS 1q8h,prn tramadol 55875920253 Braden Linkenship VANCOMYCIN HCL IN NACL 1-0.9 GM/250ML-% SOLN Vancomycin 1.5GM IV Q24hrs at 9amStat labs prior to appt (ensure his appt and timing of dos coincide) 08/27 vancomycin in 0.9 % sodium chl 68560134939 Jennyfer Beasley VANCOMYCIN HCL IN NACL 1-0.9 GM/250ML-% SOLN Vancomycin 1.5GM IV Q24hrs at 9amStat labs prior to appt (ensure his appt and timing of dos coincide) 08/27 vancomycin in 0.9 % sodium chl 74162013755 Ileana Moon VANCOMYCIN HCL IN NACL 1-0.9 GM/250ML-% SOLN Vancomycin 1GM IV O26Iubc labs prior to appt (ensure his appt and timing of dos coincide) 08/11 vancomycin in 0.9 % sodium chl 26324079215 Elizabeth Romero RN LEVOFLOXACIN 500 MG TABS once a day levofloxacin 32294090620 Ileana Vasquezo r Tylenol unspecified unspecified 500 mg PRN acetaminophen 65804389734 Ileana Mi nor FOLIC ACID 0.8 MG CAPS once a day 1 mg folic acid 67193467556 Ileana Minor THIAMINE HCL 100 MG TABS 1 tab oral daily thiamine hcl (vitamin b1) 72762983694 Ketan Rucker FUROSEMIDE 40 MG TABS 1 tab oral daily furosemide 62655104373 Ketan Rucker ALBUTEROL SULFATE HFA 108 (90 Base) MCG/ACT AERS 2 puff inhale qid prn albuterol sulfate 52291600701 Ketan Rucker IBUPROFEN 800 MG TABS 1 tab oral 3 times daily ibuprofen 76703025858 Ketan Rucker PERIDEX 0.12 % SOLN 10ml oral 2 times a day chlorhexidine gluconate 38488848967 Ketan Rucker NIFEDIPINE ER 30 MG BP40S-VGL 1 tab oral daily nifedipine 28373478307 Ketan Rucker gabapentin 600 mg tablet extended release 24 hr 1 tab oral 3 times daily gabapentin Ketan Rucker HYDROXYCHLOROQUINE SULFATE 200 MG TABS 1 tab oral twice daily 11/07 hydroxychloroquine 88361218673 Ketan Rucker LORAZEPAM 0.5 MG TABS 1 tab oral 3 times daily lorazepam 71263558202 Ketan Rucker OMEPRAZOLE 20 MG CPDR 1 cap orally once daily omeprazole 22932816287 Ketan Rucker Medications Administered No information available. [...] Name Date Entry Date CPT-sl [facility] [id number] CBC with Differential 2023 CPT-64439 CMP CPT-18955 C- reactive protein CPT-91788 Sedimentation Rate (ESR) 08/11/27 CPT-sl [facility] Labs CPT-sl STAT Labs CPT-sl STAT Labs CPT-sl [facility] Labs CPT-85396 CMP [id number] CBC with Differential 2022 CPT-04375 C- reactive protein CPT-47594 Sedimentation Rate (ESR) 202 07/14/05 CPT-sl [facility] Labs CPT-sl [facility] CPT-76226 CMP [id number] CBC with Differential 2022 CPT-95949 C- reactive protein CPT-17479 Vancomycin Trough CPT-sl STAT Labs CPT-sl [facility] Labs CPT-59909 CMP [id number] CBC with Differential 2022 CPT-97715 C- reactive protein [id number], [id number] CPK CPT-26666 Sedimentation Rate (ESR) 202 07/12/03 CPT-45614 Vancomycin Trough CPT-sl STAT Labs CPT-sl [facility] Labs CPT-59435 CMP CPT-33207 Sedimentation Rate (ESR) 202 07/09/11 CPT-47085 C- reactive protein [id number] CBC with Differential 2022 CPT-sl STAT Labs [...]
--- OUTSIDE RECORDS SUMMARY | 2025-01-02 14:47 | XMS_ITS | Patient Health Record ---
Author Organization [facility] Address [address] [place] [id number] Care Team Providers Care Autoglazier Name Role Phone Elif Nugent Primary Care Provider Stuart Carlos A Unavailable [phone] CrossAyanaBee Unavailable [phone] JamesDenisha story Unavailable [phone] Allergies No Known Allergies Results Component Value [...] Interpretation: Performing Lab: Notes/Report: Test performed by [facility] [address] [place] [address] , [address], [place] [address] Jordan Trammell MD, [employer] CLIA: [id number] Polychromasia Slight Macrocytosis Moderate Poikilocytosis Marked Anisocytosis Slight Outing Cell Few Ovalocytes Few Tear Drop Cells [...] 74 Performing Lab: Notes/Report: Test performed by [facility] [address] [place] [address] , [address], [place] [address] Jordan Trammell MD, [employer] CLIA: [id number] WBC 2.3 3.8-11.5 K/uL Red Blood Cell [...] 19 Performing Lab: Notes/Report: Test performed by [facility] [address] [place] [address] , [address], [place] [address] Jordan Trammell MD, [employer] CLIA: [id number] Sodium 135 135-145 mmol/L Potassium 4.4 3.5-5.3 mmol/L Chloride 104 97-108 mmol/L CO2 19 22-32 mmol/L Glucose 83 65-99 mg/dL BUN 12 8-23 mg/dL Creatinine 1.17 0.70-1.30 mg/dL Calcium 9.0 8.6-10.4 mg/dL eGFR by Creatinine 69 >59 mL/min/1.73m2 Medications Medication SIG (Take, Route, Frequency, Duration) Notes Start Date End Date Status Potassium Chloride ER 10 MEQ 1 tablet wi th food Orally Once a day 11/01/2023 Active Hydroxychloroquine Sulfate 2 00 MG Take 1 tablet by mouth twice daily; Duration: 90 Active Peridex 0.12 % 10 ml orally 2 times a day; Duration: 30 day(s) Active Pantoprazole Sodium 20 MG Take 1 tablet by mouth once daily; Duration: 90 Active NIFEdipine ER 30 MG Take 1 [...] 1 CAP(S) ORALLY ONCE A DAY Active LORazepam 0.5 MG 1 tab(s) orally 3 times a day; Duration: 30 day(s) 11/13/2024 Active Docusate Sodium 100 MG 1 cap(s) orally 2 times a day Active Gabapentin 600 MG 1 tab(s) orally 3 times a day 11/13/2024 Active Melatonin 3 MG 1 tab(s) orally once a day (at bedtime) Active Ibuprofen 800 MG 1 tablet with food o r milk as needed Orally 3 times a day; Duration: 90 days Active Vitamin D3 25 MCG 1 tab(s) orally once a day; Duration: 30 day(s) Active Furosemide 40 MG 1 tab(s) orally once a day; Duration: 90 days Active Immunizations Vaccine Route Administration Date Status [...] (L93.2) Active confirmed Problem Information temporarily unavailable Adult failure to thrive (R62.7) Active confirmed Problem Information temporarily unavailable Male [...] (Z96.651) Active confirmed Vital Signs Heart Rate 51 /min 01/01/2025 Blood pressure diastolic 76 mm Hg 01/01/2025 Height 71.50 in 01/01/2025 Blood pressure systolic 130 mm Hg 01/01/2025 Weight 182 lbs 01/01/2025 BMI 25.03 kg/m2 01/01/2025 Encounters Encounter Location Date Provider Diagnosis [address] [id number] 03/02/2024 Elif Nugent Essential hypertensi on I10 ; Centrilobular emphysema J43.2 ; Benign prostatic hyperplasia without lower urinary tract symptoms N40.0 ; Status post right knee replacement Z96.651 ; 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 and Lupus erythematosus L93.0 [facility] [address] [place] [id number] 06/02/2024 Elif Nugent Essential hypertensi on I10 ; Anxiety F41.9 ; Centrilobular emphysema J43.2 ; Status post left knee replacement Z96.652 ; Status post right knee replacement Z96.651 ; Lupus erythematosus L93.0 and Pharyngitis, unspecified etiology J02.[address] [id number] 10/23/2024 Elif Nugent Closed fracture of distal end of femur with routine healing, unspecified fracture morphology, unspecified laterality, subsequent encounter S72.409D ; Localized edema R60.0 and Systemic lupus erythematosus, unspecified SLE type, unspecified organ involvement status M32.9 [address] [id number] 11/13/2024 Elif Nugent 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 ; Lupus erythematosus L93.0 ; Other chronic pain G89.29 ; Anxiety F41.9 ; Other chronic pain G89.29 and BMI 25.0-25.9,adult Z68.25 [facility] [address] [place], [place] [id number] 01/01/2025 Bee Cross At high risk for fal ls Z91.81 ; Fall W19.XXXA ; Continuous tobacco abuse Z72.0 and Adult failure to thrive R62.7 [facility] [address] [place], [place] [id number] 01/12/2024 J Cosme Nugent Other chronic pain G89.29 [facility] [address] [place], [place] [id number] 01/20/2024 J Cosme Nugent Anxiety F41.9 [facility] [address] [place], [place] [id number] 03/07/2024 J Cosme Nugent [facility] [address] [place], [place] [id number] 04/28/2024 Carlos A Stebbins Anxiety F41.9 [facility] [address] [place], [place] [id number] 05/30/2024 J Cosme Nugent Anxiety F41.9 [facility] [address] [place], [place] [id number] 06/02/2024 J Cosme Nugent [facility] [address] [place], [place] [id number] 08/04/2024 J Cosme Nugent Anxiety F41.9 [facility] [address] [place] [id number] 08/21/2024 J Cosme Nugent [facility] [address] [place] [id number] 09/26/2024 J Cosme Nugent [facility] [address] [place] [id number] 09/29/2024 Elif Nugent [facility] [address] [place] [id number] 10/24/2024 J Cosme Nugent [facility] [address] [place], [place] [id number] 10/26/2024 Elif Nugent [facility] [address] [place] [id number] 10/26/2024 Elif Nugent [facility] [address] [place] [id number] 10/31/2024 Elif [facility] [address] [place], [place] [id number] 11/09/2024 Elif Nugent [facility] [address] [place], [place] [id number] 12/04/2024 Elif Nugent Assessments Encounter Date Diagnosis (ICD Code) Assessment Notes Treatment Notes Treatment Clinical Notes Section Notes 01/20/2024 Anxiety (ICD-10 - F41.9) 03/02/2024 Essential hypertension (ICD-10 - I10) 03/02/2024 Centrilobular emphysema (ICD-10 - J43.2) 04/28/2024 Anxiety (ICD-10 - F41.9) 06/02/2024 Essential hypertension (ICD-10 - I10) 06/02/2024 Anxiety (ICD-10 - F41.9) 08/04/2024 Anxiety (ICD-10 - F41.9) 11/13/2024 Lupus erythematosus (ICD-10 - L93.0) 11/13/2024 Status post revision of total replacement of right knee (ICD-10 - Z96.651) 01/01/2025 Fall (ICD-10 - W19.XXXA) 01/01/2025 At high risk for falls (ICD-10 - Z91.81) will continue with PT next week 10/23/2024 Closed fracture of distal end of femur with routine healing, unspecified fracture morphology, unspecified laterality, subsequent encounter (ICD-10 - S72.409D) 05/30/2024 Anxiety (ICD-10 - F41.9) 01/12/2024 Other chronic pain (ICD-10 - G89.29) 10/23/2024 Localized edema (ICD-10 - R60.0) 10/23/2024 Systemic lupus erythematosus, unspecified SLE type, unspecified organ involvement status (ICD-10 - M32.9) 11/13/2024 Other chronic pain (ICD-10 - G89.29) 01/01/2025 Continuous tobacco abuse (ICD-10 - Z72.0) discussed cessation with changes of behavior 06/02/2024 Centrilobular emphysema (ICD-10 - J43.2) 03/02/2024 Benign prostatic hyperplasia without lower urinary tract symptoms (ICD-10 - N40.0) 03/02/2024 Status post right knee replacement (ICD-10 - Z96.651) 01/01/2025 Adult failure to thrive (ICD-10 - R62.7) Discussed replacing beer with Boost; Boost of any flavor 3 x daily 11/13/2024 Anxiety (ICD-10 - F41.9) 06/02/2024 Status post left knee replacement (ICD-10 - Z96.652) 06/02/2024 Status post right knee replacement (ICD-10 - Z96.651) 11/13/2024 Other chronic pain (ICD-10 - G89.29) 03/02/2024 Status post revision of total replacement of right knee (ICD-10 - Z96.651) 03/02/2024 Lupus erythematosus (ICD-10 - L93.0) 06/02/2024 Lupus erythematosus (ICD-10 - L93.0) 11/13/2024 BMI 25.0-25.9,adult (ICD-10 - Z68.25) 06/02/2024 Pharyngitis, unspecified etiology (ICD-10 - J02.9) 10/23/2024 Other Discharge summary with available lab/diagnostic imaging results obtained and reviewed. Discharge medication list reconciled. Appropriate counseling provided. Moderate Complexity Plan Of Treatment Pending Test Test Name Order Date CP-CMP 05/06/2020 P-Comprehensive Metabolic Panel (CMP) P-[facility] 05/17/2023 Next Appt Details Provider Name:Elif Zapata er, 01/15/2025 03:45:00 PM, [address], [address], [place], [place], [id number], Insurance Providers Payer Name Payer Address Payer Phone Subscriber Number Group Number Insured Name Patient Relationship to Insured Coverage Start Date Coverage End Date [employer] (MEDICAR E) [address] [address] [place] [phone] [id number] ROHAN COWART Self - patient is the [...] left knee replacement surgery, Dr. Jose clarke, [facility] 09/05/2018 right knee replacement surgery, Dr. Sree wisdom [facility] 12/05/2018 EGD with biopsy 11/2012 Revision of right knee repla cement with Explant antibiotic spacer, Dr Stratton 07/16/22 Left periprosthetic femur fracture Hospitalization History Reason Date(Month/Year) [facility] - mikaela 04/2020 [facility] ER - fall/colitis 06/13/2019 blacked out at home and was taken to [facility] ER and admitted 10/2011
[2025-01-02 15:30] VITALS: PULSE 78; PULSE 80
[2025-01-02] MEDS: ALBUTEROL 0.083% 2.5 MG/3 ML NEB IH (15:30)
--- NOTE | 2025-01-02 16:06 | RESP.PFTSS ---
Patient refused six minute walk. He says he is unsteady on his feet and he broke his femur and it hurts too bad to walk on it. Family said he is very unsteady on his feet.
== END 2025-01-02 23:59 | disposition home or self-care (01) ==
LOC: RT 14:43
PROVIDERS: PCP Family Medicine; Visit Provider Internal Medicine Pulmonary Disease
DX: J44.9 Chronic obstructive pulmonary disease, unspecified (principal); R94.2 Abnormal results of pulmonary function studies
CPT/HCPCS: 94060; 94640

== ENCOUNTER 2025-01-11 15:51 | Outpatient (CLI) | payer MEDICARE, SELFPAY ==
--- OUTSIDE RECORDS SUMMARY | 2024-10-13 07:30 | XMS_ITS ---
Author Organization [facility] Address [address] [facility] [address] [facility] [address] [place] [id number] Care Team Providers Care Drafter Electronic Name Role Phone Elif Nugent Primary Care Provider Carlos A Davidson [phone] REASON FOR VISIT [place] E D/C FU Encounters Encounter Location Date Provider Diagnosis [facility] [address] [facility] [address] [place] [id number] 10/13/2024 Carlos A Davidson Plan Of Treatment Next Appt Details Provider Name:Elif Zapata er, 01/15/2025 03:45:00 PM, [address] [facility] [address] [facility], [address], [place], [phone], Progress Notes * ROHAN COWARTDOB:1960 (64 yo M)Acc No.[id number]:10/13/2024 Progress Notes Patient: ROHAN PUGH Provider: Uriel Davidson M.D. :1960 A ge:63 Y S ex:Male Date:10/13/2024 Address:[facility] [address] [id number] Pcp:Elif Nugent Subjective: * Chief Complaints: * 1 . [place] E D/C FU. * Medical History: Objective: * Vitals: Assessment: Plan: * Treatment: * Images: Billing Information: * Visit Code: * Procedure Codes: * Electronic signature of Nila Davidson MD on 01/11/2025 at 03:53 PM EDT Sign off status: Pending * Provider: Uriel Davidson M.D. Date: 0 10/13/2024 Generated for Lui palomo/Angelika/Tiburcio on: 0 01/11/2025 03:53 PM EDT
--- OUTSIDE RECORDS SUMMARY | 2024-10-23 10:30 | XMS_ITS ---
Author Organization [facility] Address [address] [place] [phone] Care Team Providers Care Senior Contracts Administrator Name Role Phone Elif Nugent Primary Care Provider Allergies No Known Allergies Reason For Referral Reason femur fracture Diagnosis 1 Closed fracture of d istal end of femur with routine healing, unspecified fracture morphology, unspecified laterality, subsequent encounter (S72.409D) Referral Organization [facility] Referring Provider First Name Elif Aguiar Referring Provider Last Name Raffi Referring Provider Speciality Family Pra ctice General Notes Frida Plummer 2024 08:59:10 AM >11/02/2024 at 11:15am; tried to call and inform patient, but there is no vm set up Referral Priority Routine REASON FOR VISIT f/u [facility] [place] [facility] d/c following broken leg Medications Medication SIG (Take, Route, Frequency, Duration) Notes Start Date End Date Status Melatonin 3 MG 1 tab(s) orally once a day (at bedtime) Active Vitamin D3 25 MCG 1 tab(s) orally once a day; Duration: 30 day(s) Active Potassium Chloride ER 10 MEQ 1 tablet with food Orally Once a day 11/01/2023 Active BIFIDOBACTERIUM-LACTOBACILL US - 1 CAP(S) ORALLY ONCE A DAY Active Docusate Sodium 100 MG 1 cap(s) orally 2 times a day Active Ibuprofen 800 MG TAKE 1 TABLET BY MOUTH THREE TIMES DAILY; Duration: 90 Active LORazepam 0.5 MG 1 tab(s) orally 3 times a day; Duration: 30 day(s) 08/04/2024 Active Furosemide 40 MG 1 tab(s) orally once a day; Duration: 90 days Active Narcan 4 MG/0.1ML as directed intranasally once Not-Taking Pantoprazole Sodium 20 MG Take 1 tablet by mouth once daily; Duration: 90 Active Gabapentin 600 MG 1 tab(s) orally 3 times a day 01/14/2024 Active NIFEdipine ER 30 MG Take 1 tablet by mouth once daily Once a day; Duration: 90 days Active Hydroxychloroquine Sulfate 200 MG Take 1 tablet by mouth twice daily; Duration: 90 Active Medrol 4 MG as directed orally daily; Duration: 6 days 06/02/2024 Not-Taking Peridex 0.12 % 10 ml orally 2 times a day; Duration: 30 day(s) Active Aspirin 81 MG 1 tab(s) orally once a day; Duration: 30 day(s) Active Albuterol Sulfate HFA 108 (90 Base) MCG/ACT 2 puff(s) inhaled qid prn Active amLODIPine Besylate 2.5 MG 1 tab(s) oral ly twice a day Active Vital Signs Blood pressure systolic 120 mm Hg 10/24/19 25 Blood pressure diastolic 60 mm Hg 025 Heart Rate 100 /min 10/23/2024 Height 71.50 in 10/23/2024 Weight 000 lbs 10/23/2024 Encounters Encounter Location Date Provider Diagnosis [facility] [facility] [address] [phone] 10/23/2024 Elif Nugent Closed fracture of distal end of femur with routine healing, unspecified fracture morphology, unspecified laterality, subsequent encounter S72.409D ; Localized edema R60.0 and Systemic lupus erythematosus, unspecified SLE type, unspecified organ involvement status M32.9 Assessments Encounter Date Diagnosis (ICD Code) Assessment Notes Treatment Notes Treatment Clinical Notes Section Notes 10/23/2024 Closed fracture of distal end of femur with routine healing, unspecified fracture morphology, unspecified laterality, subsequent encounter (ICD-10 - S72.409D) 10/23/2024 Localized edema (ICD-10 - R60.0) 10/23/2024 Systemic lupus erythematosus, unspecified SLE type, unspecified organ involvement status (ICD-10 - M32.9) 10/23/2024 Other Discharge summary with available lab/diagnostic imaging results obtained and reviewed. Discharge medication list reconciled. Appropriate counseling provided. Moderate Complexity Plan Of Treatment Medication Medication Name Sig Start Date Stop Date Notes Furosemide 40 MG 1 tab(s) orally once a day; Duration: 90 days Treatment Notes Assessment Notes Other Discharge summary wi th available lab/diagnostic imaging results obtained and reviewed. Discharge medication list reconciled. Appropriate counseling provided. Moderate Complexity Referrals Referral Date Details 10/23/2024 10/23/2024, femur fr acture Next Appt Details Follow Up: 3 Weeks, Reason: Provider Name:Elif Zapata er, 01/15/2025 03:45:00 PM, [address], [place], [place], [id number], Progress Notes * ROHAN COWARTDOB:1960 (64 yo M)Acc No.[id number]:10/23/2024 Progress Notes Patient: ROHAN PUGH Provider: Elif Nugent M.D. :1960 A ge:63 Y S ex:Male Date:10/23/2024 Address:[place] [address], [place], [id number] Subjective: * Chief Complaints: * 1 . f/u [facility] d/c following broken leg. * HPI: H PI: Patient is here today for a Transition of Care Visit. Discharge from the following Facility: admitted to [facility] on 09/25/2024 for Left distal femur fracture, left DISTAL femur periprosthetic (left knee replacement) fracture, with subsequent admission to [facility] , Discharge date: 09/29/2024 from [place] [facility]. Discharged from [facility]: M onday 10/16/2024. Pt sts he is still in some pain. HAS NOT BEEN TAKING LASIX AND HE HAS EDEMA.. * ROS: D ERMATOLOGY: no R luz. [...] , left knee replacement surgery, Dr. Diaz, [facility] 09/05/2018, right knee replacement surgery, Dr. Diaz [facility] 12/05/2018, EGD with biopsy 11/2012, Revision of right knee replacement with Explant antibiotic spacer, Dr Stratton 07/16/22, Left periprosthetic femur fracture 09/25/24. * Hospitalization/Major Diagno stic Procedure: b lacked out at home and was taken to [facility] ER and admitted 10/2011, [facility] ER - fall/colitis 06/13/2019, [facility] ER - mikaela 04/2020. * Family [...] Smoking preference: cigarettes. Alcohol: drinks daily. * Medications: T aking Potassium Chloride ER 10 MEQ Tablet Extended Release 1 tablet with food Orally Once a day , Taking Vitamin D3 25 MCG Tablet 1 tab(s) orally once a day , Taking Melatonin 3 MG Tablet 1 tab(s) orally once a day (at bedtime) , Taking Docusate Sodium 100 MG Capsule 1 cap(s) orally 2 times a day , Taking BIFIDOBACTERIUM-LACTOBACILLUS - CAPSULE 1 CAP(S) ORALLY ONCE A DAY , Taking Aspirin 81 MG Tablet Delayed Release 1 tab(s) orally once a day , Taking amLODIPine Besylate 2.5 MG Tablet 1 tab(s) orally twice a day , Taking Albuterol Sulfate HFA 108 (90 Base) MCG/ACT Aerosol Solution 2 puff(s) inhaled qid prn , Taking NIFEdipine ER 30 MG Tablet Extended Release 24 Hour Take 1 tablet by mouth once daily Once a day , Taking Gabapentin 600 MG Tablet 1 tab(s) orally 3 times a day , Taking Peridex 0.12 % Solution 10 ml orally 2 times a day , Taking Furosemide 40 MG Tablet 1 tab(s) orally once a day , Taking Hydroxychloroquine Sulfate 200 MG Tablet Take 1 tablet by mouth twice daily , Taking Pantoprazole Sodium 20 MG Tablet Delayed Release Take 1 tablet by mouth once daily , Taking LORazepam 0.5 MG Tablet 1 tab(s) orally 3 times a day , Taking Ibuprofen 800 MG Tablet TAKE 1 TABLET BY MOUTH THREE TIMES DAILY , Not- Taking Medrol 4 MG Tablet Therapy Pack as directed orally daily , Not-Taking Narcan 4 MG/0.1ML Liquid as directed intranasally once , Medication List reviewed and reconciled with the patient * Allergies: N .K.D.A. Objective: * Vitals: W t: 000, Temp: 98.4, BP: 120/60, HR: 100, O2 Sat: 99% on RA, Nurse: shannan, Ht: 71.50. * Examination: G eneral Examination: General Appearance: N AD. H EENT: u nremarkable.?Oral cavity: n o lesions, mucosa moist and WNL, no erythema. N sarina: s upple, no lymphadenopathy. C hest: n ormal shape and expansion. H eart: R SR. L ungs: c lear to auscultation. A bdomen: soft and nontender, no organomegaly or masses. N eurologic Exam: I ntact, gait normal. S kin: n ormal, no rash. P eripheral pulses: n ormal . B ack: mild dorsal kyphosis. E xtremities: 3 + leg edema, bilateral pitting leg edema. Assessment: * Assessment: 1. C losed fracture of distal end of femur with routine healing, unspecified fracture morphology, unspecified laterality, subsequent encounter - S72.409D (Primary) 2 . L ocalized edema - R60.0 3 . S ystemic lupus erythematosus, unspecified SLE type, unspecified organ involvement status - M32.9 Plan: * Treatment: 2. L ocalized edema Resume Furosemide Tablet, 40 MG, 1 tab(s), orally, once a day, 90 days, 90 Tablet, Refills 1. ? 3. O thers Notes: Discharge summary with available lab/diagnostic imaging results obtained and reviewed. Discharge medication list reconciled. Appropriate counseling provided. Moderate Complexity * Procedure Codes: 1 111F DSCHR MED/CURENT MED MERGE, G2211 Complex e/m visit add on, G8783 BP SCR PRFRM RCMDD DEFIND SCR INTVL, G8752 MOST RECENT SYSTOLIC BP < 140MM HG, G8754 MOST RECENT DIASTOLIC BP < 90MM HG * Follow Up: 3 Weeks * Images: Billing Information: * Visit Code: 29239 Office Visit, Est Pt., Level 4. * Procedure Codes: 1111F DSCHR MED/CURENT MED MERGE. G2211 Complex e/m visit add on. G8783 BP SCR PRFRM RCMDD DEFIND SCR INTVL. G8752 MOST RECENT SYSTOLIC BP < 140MM HG. G8754 MOST RECENT DIASTOLIC BP < 90MM HG. * Electronic signature of Elif Nugent MD on 01/11/2025 at 03:54 PM EDT Sign off status: Pending * Provider: Elif Nugent M.D. Date: 0 10/23/2024 Generated for Lui palomo/Angelika/Swapnasmitting on: 0 01/11/2025 03:54 PM EDT History and Physical Notes * HPI (History of Present Illness) Category Sub-Category Detail Notes Category Not es HPI Patient is here today for a [facility] sition of Care Visit. Discharge from the following Facility: admitted to [facility] on 09/25/2024 for Left distal femur fracture, left DISTAL femur periprosthetic (left knee replacement) fracture, with subsequent admission to [facility] ,Discharge date: 09/29/2024 from [place] [facility]. Discharged from [facility]: Wednesday10/16/2024. Pt sts he is still in some pain. HAS NOT BEEN TAKING LASIX AND HE HAS EDEMA. Examination Category Sub-Category Detail Notes Category Not es General Examination HEENT: unremarkable Heart: RSR Lungs: clear to auscultatio n Abdomen: soft and nontender, no organomegaly or masses Extremities: 3+ leg edema, bilate ral pitting leg edema General Appearance: NAD Skin: normal, no rash Neurologic Exam: Intact, gait normal Neck: supple, no lymphaden opathy Oral cavity: no lesions, mucosa m oist and WNL, no erythema Peripheral pulses: normal Back: mild dorsal kyphosis Chest: normal shape and exp ansion Consultation Request Notes Referral Date Referring Provider Referred Provider Not es 10/23/2024 Elif Nugent , femur frac ture
--- OUTSIDE RECORDS SUMMARY | 2024-11-13 11:45 | XMS_ITS ---
Author Organization [facility] Address [address] [place] [phone] Care Team Providers Care Rug Underlay Machine Operator Name Role Phone Elif Nugent Primary Care [...] 11/13/2024 Encounters Encounter Location Date Provider Diagnosis [facility] [facility] [address] [phone] 11/13/2024 Elif Nugent Status post revision of [...] [address], [address], [place], [place], [id number], Progress Notes * ROHAN COWARTDOB:1960 (64 yo M)Acc No.[id number]:11/13/2024 Progress Notes Patient: LUIS MANUEL PUGHER Provider: Elif Nugent M.D. :1960 A ge:63 Y S ex:Male Date:11/13/2024 Address[place] [address], [place] Subjective: * Chief Complaints: * 1 . [...] , left knee replacement surgery, Dr. Diaz, [facility] 09/05/2018, right knee replacement surgery, Dr. Diaz [facility] 12/05/2018, EGD with biopsy 11/2012, Revision of right knee replacement with Explant antibiotic spacer, Dr Stratton 07/16/22, Left periprosthetic femur fracture 09/25/24. * Hospitalization/Major Diagno stic Procedure: b lacked out at home and was taken to [facility] ER and admitted 10/2011, [facility] ER - fall/colitis 06/13/2019, [facility] ER - mikaela 04/2020. * Family History: [...] ther chronic pain - G89.29 ?6. B SC 25.0-25.9,adult - Z68.25 Plan: * Treatment: Value [...] G 2211 Complex e/[place], [address] CBC WITH AUTO DIFF, 61915 VENIPUNCT, ROUTINE*, G8420 BMI<30 AND >=22 CALC & DOCU, G8783 BP SCR PRFRM RCMDD DEFIND SCR INTVL, G8752 MOST RECENT SYSTOLIC BP < 140MM HG, G8754 MOST RECENT DIASTOLIC BP < 90MM HG * Follow Up: 2 Months * Images: Billing Information: * Visit Code: 40607 Office Visit, Est Pt., Level 4. * Procedure Codes: G2211 Complex e/[place]. [address] CBC WITH AUTO DIFF. 47588 VENIPUNCT, ROUTINE*. G8420 BMI<30 AND >=22 CALC & DOCU. G8783 BP SCR PRFRM RCMDD DEFIND SCR INTVL. G8752 MOST RECENT SYSTOLIC BP < 140MM HG. G8754 MOST RECENT DIASTOLIC BP < 90MM HG. * Electronic signature of Elif Nugent MD on 01/11/2025 at 03:52 PM EDT Sign off status: Pending * Provider: Elif Nugent M.D. Date: 11/13/2024 Generated for Lui palomo/Angelika/Dorianitting on: 01/11/2025 03:52 PM EDT History and Physical Notes * [...]
--- OUTSIDE RECORDS SUMMARY | 2024-11-30 10:45 | XMS_ITS ---
Author Organization [facility] Address [address] [facility] [address] [facility] [address] [place] [id number] Care Team Providers Care Superintendent Electric Power Name Role Phone Elif Nugent Primary Care Provider Denisha Guan [phone] Allergies No Known Allergies REASON FOR VISIT 3 weeks Encounters Encounter Location Date Provider Diagnosis [facility] [address] [facility] [address] [facility] [address] [place] [id number] 11/30/2024 Denisha Guan Plan Of Treatment Next Appt Details Provider Name:Elif Zapata er, 01/15/2025 03:45:00 PM, [address] [facility] [address] [facility], [address], [place], [phone], Progress Notes * ROHAN COWARTDOB:1960 (64 yo M)Acc No.[id number]:11/30/2024 Progress Notes Patient: ROHAN PUGH Provider: CAT Degroot :1960 A ge:64 Y S ex:Male Date:11/30/2024 Address:[facility] [address] [facility] Pcp:Elif Nugent Subjective: * Chief Complaints: * [...] out at home and was taken to [facility] ER and admitted 10/2011, [facility] ER - fall/colitis 06/13/2019, [facility] ER - m[place]aela 04/2020. * [...] * Electronic signature of CAT Landry on 01/11/2025 at 03:53 PM EDT Sign off status: Pending * Provider: CAT Degroot Date: 11/30/2024 Generated for Lui palomo/Angelika/Dorianitting on: 01/11/2025 03:53 PM EDT
--- OUTSIDE RECORDS SUMMARY | 2025-01-01 11:30 | XMS_ITS ---
Author Organization [facility] Address [address] [facility] [address] [place] [id number] Care Team Providers Care Almond Blancher Name Role Phone Elif Nugent Primary Care Provider Bee Cross Unavailable [phone] Allergies No Known Allergies REASON FOR VISIT [facility] ER Follow Up Medications Medication SIG (Take, Route, Frequency, Duration) Notes Start Date End Date Status LORazepam 0.5 MG 1 tab(s) orally 3 times a day; Duration: 30 day(s) 11/13/2024 Active Gabapentin 600 MG 1 tab(s) orally 3 times a day 11/13/2024 Active Ibuprofen 800 MG 1 tablet with food o r milk as needed Orally 3 times a day; Duration: 90 days Active Pantoprazole Sodium 20 MG Take 1 tablet by mouth once daily; Duration: 90 Active Hydroxychloroquine Sulfate 2 00 MG Take 1 tablet by mouth twice daily; Duration: 90 Active Peridex 0.12 % 10 ml orally 2 times a day; Duration: 30 day(s) Active NIFEdipine ER 30 MG Take 1 tablet by gabriela th once daily Once a day; Duration: 90 days Active Furosemide 40 MG 1 tab(s) orally once a day; Duration: 90 days Active Albuterol Sulfate HFA 108 (9 0 Base) MCG/ACT 2 puff(s) inhaled qid prn Active amLODIPine Besylate 2.5 MG 1 tab(s) oral ly twice a day Active Aspirin 81 MG 1 tab(s) orally once a day; Duration: 30 day(s) Active BIFIDOBACTERIUM-LACTOBACILLU S - 1 CAP(S) ORALLY ONCE A DAY Active Docusate Sodium 100 MG 1 cap(s) orally 2 times a day Active Potassium Chloride ER 10 MEQ 1 tablet wi th food Orally Once a day 11/01/2023 Active Melatonin 3 MG 1 tab(s) orally once a day (at bedtime) Active Vitamin D3 25 MCG 1 tab(s) orally once a day; Duration: 30 day(s) Active Problems Problem Type SNOMED Code ICD Code Onset Dates Problem Status W/U Status Risk Notes Problem Adult failure to thrive syndrome (647934062) Adult failure to thrive (R62.7) Active confirmed Vital Signs Blood pressure systolic 130 mm Hg 01/02/20 25 Blood pressure diastolic 76 mm Hg 025 Heart Rate 51 /min 01/01/2025 Height 71.50 in 01/01/2025 Weight 182 lbs 01/01/2025 BMI 25.03 kg/m2 01/01/2025 Encounters Encounter Location Date Provider Diagnosis [facility] [address] [facility] [address] [place], [place] [id number] 01/01/2025 Bee Cross At high risk for falls Z91.81 ; Fall W19.XXXA ; Continuous tobacco abuse Z72.0 and Adult failure to thrive R62.7 Assessments Encounter Date Diagnosis (ICD Code) Assessment Notes Treatment Notes Treatment Clinical Notes Section Notes 01/01/2025 At high risk for falls (ICD-10 - Z91.81) will continue with PT next week 01/01/2025 Fall (ICD-10 - W19.XXXA) 01/01/2025 Continuous tobacco abuse (ICD-10 - Z72.0) discussed cessation with changes of behavior 01/01/2025 Adult failure to thrive (ICD-10 - R62.7) Discussed replacing beer with Boost; Boost of any flavor 3 x daily Plan Of Treatment Treatment Notes Assessment Notes At high risk for falls will continue wit h PT next week Continuous tobacco abuse discussed cessa tion with changes of behavior Adult failure to thrive Discussed replac ing beer with Boost; Boost of any flavor 3 x daily Next Appt Details Follow Up: keep 01/15/[address] Nugent, Reason: Provider Name:Elif Zapata er, 01/15/2025 03:45:00 PM, [address], [address], [place], [place], [id number], Progress Notes * ROHAN COWARTDOB:1960 (64 yo M)Acc No.[id number]:01/01/2025 Patient: ROHAN PUGH Provider: Nikki yung CrossMARTIN :1960 A ge:64 Y S ex:Male Date:01/01/2025 Address:[place] [address], [address] [facility], [id number] Pcp:Elif Nugent Subjective: * Chief Complaints: * 1 . [facility] ER Follow Up. * HPI: H PI: ER reports reviewe; pt would like to RT PT next wee. Patient is here today for H [facility] ER fu on 12/17 see pts docs and he was at ER 12/29. Pt states was at ER Wednesday for left leg pain because he was doing something at home turned the wrong way. * ROS: R ESPIRATORY: Positive for s moking 1 05/11 -2 PPD. D ERMATOLOGY: no R luz. n o H garry. G ASTROENTEROLOGY: Positive for e ating very little; drinking at least 3 -5 beers daily. n o N ausea. n o V omiting. n o D iarrhea. M USCULOSKELETAL: Positive for c an walk with a walker. U ROLOGY: no D ifficulty urinating. n [...] out at home and was taken to [facility] ER and admitted 10/2011, [facility] ER - fall/colitis 06/13/2019, [facility] ER - mikaela 04/2020. * [...] once daily Once a day , Taking Peridex 0.12 % Solution 10 ml orally 2 times a day , Taking Hydroxychloroquine Sulfate 200 MG Tablet Take 1 tablet by mouth twice daily , Taking Pantoprazole Sodium 20 MG Tablet Delayed Release Take 1 tablet by mouth once daily , Taking Furosemide 40 MG Tablet 1 tab(s) orally once a day , Taking Ibuprofen 800 MG Tablet 1 tablet with food or milk as needed Orally 3 times a day , Taking Gabapentin 600 MG Tablet 1 tab(s) orally 3 times a day , Taking LORazepam 0.5 MG Tablet 1 tab(s) orally 3 times a day , Discontinued Medrol 4 MG Tablet Therapy Pack as directed orally daily , Discontinued Narcan 4 MG/0.1ML Liquid as directed intranasally once , Medication List reviewed and reconciled with the patient * Allergies: N .K.D.A. Objective: * Vitals: W t: 182, Temp: 97.5, BP: 130/76, HR: 51, O2 Sat: 99% on ra, Nurse: pe, Ht: 71.50, BMI:25.03. * Examination: G eneral Examination: General Appearance: N AD, alert, pleasant; thin; presents in a wheelchair. H eart: R RR. L ungs: C TAB A&P. N eurologic Exam: a lert and oriented. E xtremities: n o leg edema; can do straight leg lifts. ? L ABS: H ER labs 12/17/24 12:20: WBC 3.0 L, RBC 3.53 L, Hgb 12.9 L, Hct 37.0 L, MCV 104.8 H, MCH 36.5 H, MCHC 34.9, RDW 12.2, Plt Count 91 L, MPV 12.3 H, Neut % (Auto) 54.6, Lymph % (Auto) 31.8, [place] % (Auto) 10.3 H, Eos % (Auto) 2.3, Baso % (Auto) 1.0, Neut # (Auto) 1.7 L, Lymph # (Auto) 1.0, [place] # (Auto) 0.3, Eos # (Auto) 0.1, Baso # (Auto) 0.0, Sodium 129 L, Potassium 4.3, Chloride 100, Carbon Dioxide 18 L, Anion Gap 15.3 H, BUN 9, Creatinine 1.10, Estimated Creat Clear 76, Estimated GFR 67, Est GFR ( Amer) 81, Glucose 84, Calcium 8.8. X ray: CT Scan femur CT MPRESSION: The oblique distal femoral metaphyseal fracture demonstrates bony remodeling and periosteal reaction consistent with healing. No acute femoral fracture. 12/30/[address] IMPRESSION: 1. Postsurgical changes of the left femoral diaphysis. The hardware appears intact. No periprosthetic fracture. 2. Nonspecific urinary bladder wall thickening. Please exclude infection. 12/17/[address] IMPRESSION: 1. Nondisplaced acute nonsegmental fractures of the right lateral 8th, 9th and 10th ribs. Mildly displaced acute non segmental of the right posterolateral 11th rib. 2. Trace right pleural effusion. 3. 7 x 4 mm noncalcified right upper lobe pulmonary nodule. Fleischner Society follow up recommendations for incidental nodules are not indicated. Follow up per the patient's medical condition. 4. Atherosclerosis, including the coronary arteries. 5. Additional chronic/nonemergent findings as detailed above. . Assessment: * Assessment: 1. A t high risk for falls - Z91.81 (Primary) 2 . F all - W19.XXXA ? 3 . C ontinuous tobacco abuse - Z72.0 4 . A dult failure to thrive - R62.7 Plan: * Treatment: 2. C ontinuous tobacco abuse Notes: discussed cessation with changes of behavior 3. A dult failure to thrive Notes: Discussed replacing beer with Boost; Boost of any flavor 3 x daily * Follow Up: nikki stanton 01/15/[address] Nugent * Images: Billing Information: * Visit Code: 21415 Office Visit, Est Pt., Level 4. * Procedure Codes: * Electronic signature of Georgia Cross APRN on 01/11/2025 at 03:53 PM EDT Sign off status: Pending * Provider: MARTIN Bradshaw Date: 01/01/2025 Generated for Lui palomo/Angelika/Dorianitting on: 0 01/11/2025 03:53 PM EDT History and Physical Notes * HPI (History of Present Illness) Category Sub-Category Detail Notes Category Not es HPI Patient is here today for [facility] ER fu on 12/17 see pts docs and he was at ER 12/29. Pt states was at ER Wednesday for left leg pain because he was doing something at home turned the wrong way Examination Category Sub-Category Detail Notes Category Not es General Examination Heart: RRR Lungs: CTAB A&P Extremities: no leg edema; can do straight leg lifts General Appearance: NAD, alert, pleasant ; thin; presents in a wheelchair Neurologic Exam: alert and oriented LABS [facility] ER labs 12/17/24 12:20: WBC 3.0 L, RBC 3.53 L, Hgb 12.9 L, Hct 37.0 L, MCV 104.8 H, MCH 36.5 H, MCHC 34.9, RDW 12.2, Plt Count 91 L, MPV 12.3 H, Neut % (Auto) 54.6, Lymph % (Auto) 31.8, [place]ble % (Auto) 10.3 H, Eos % (Auto) 2.3, Baso % (Auto) 1.0, Neut # (Auto) 1.7 L, Lymph # (Auto) 1.0, Kimble # (Auto) 0.3, Eos # (Auto) 0.1, Baso # (Auto) 0.0, Sodium 129 L, Potassium 4.3, Chloride 100, Carbon Dioxide 18 L, Anion Gap 15.3 H, BUN 9, Creatinine 1.10, Estimated Creat Clear 76, Estimated GFR 67, Est GFR ( Amer) 81, Glucose 84, Calcium 8.[address] Scan 12/30/[address] MPRESSION: The oblique distal femoral metaphyseal fracture demonstrates bony remodeling and periosteal reaction consistent with healing. No acute femoral fracture. 12/30/[address] IMPRESSION: 1. Postsurgical changes of the left femoral diaphysis. The hardware appears intact. No periprosthetic fracture. 2. Nonspecific urinary bladder wall thickening. Please exclude infection. 12/17/[address]
--- NOTE | 2025-01-11 15:30 | CT_ITS ---
FINAL REPORT TECHNIQUE: Axial CT images of the chest were obtained without contrast. Low-dose protocol was utilized. This study was performed with techniques to keep radiation doses as low as reasonably achievable (ALARA). Individualized dose reduction techniques using automated exposure control or adjustment of mA and/or kV according to the patient's size were employed. CLINICAL HISTORY: lung cancer screening current smoker 1.5 ppd 25 yrs COMPARISON: CT low-dose 01/03/[address] chest 12/17/2024 FINDINGS: CT CHEST WITHOUT, LOW DOSE SCREENING CT Di Vol: 2.90 mGy DLP: 112.03 mGy*cm There is no axillary, mediastinal, or hilar adenopathy. The heart size is normal. There are dense coronary artery calcifications. There is no pleural or pericardial effusion. The lung windows show the 8 mm nodule in the periphery of the right upper lobe which was previously solid now is partially cavitary, well-seen on images 91 395 of series 2. Moderate changes of centrilobular emphysema are noted. There is biapical pleural and parenchymal scarring. Limited images of the upper abdomen demonstrate no acute findings. Gallbladder is present. Multiple low-attenuation areas in the liver are consistent with multiple benign cysts and stable. IMPRESSION: Partially cavitary nodule in the periphery of the right upper lobe, unchanged in size and now favored to be postinflammatory. LR Category 2: 12 month follow-up low-dose chest CT is recommended per Fleischner criteria. Reviewed, Interpreted and Dictated by Florin Clemens MD Transcribed by Phyllis Benson Authenticated and . [facility]
--- OUTSIDE RECORDS SUMMARY | 2025-01-11 15:53 | XMS_ITS | Clinical Summary ---
Author Organization [facility] Address [address] [place] [address] Phone Care Team Providers Care Motorcycle Riding Instructor Name Role Phone Nadja Pressley RN Unavailable Unavailable Conditions or Problems Problem Name Problem Code Onset Date Status Entry Date Provider Comment Standard Description Annotate Adverse drug reaction 26097355 (SNOMED CT) 09/29 Active 09/29 Dipesh Walker MD Adverse reaction to drug Eosinophilia , unspecified 590488198 (SNOMED CT) 09/29 Active 09/29 Dipesh Walker MD Eosinophil count above reference range Health advice, education, or counseling 370173315 (SNOMED CT) 08/04 Active 08/04 Ketan Rucker Procedure carried out on subject Thrombocytop enia 504953271 (SNOMED CT) 06/17 Active 06/17 Dipesh Walker MD Thrombocytopeni c disorder Leukopenia 16991023 (SNOMED CT) 06/17 Active 06/17 Dipesh Walker MD Leukopenia Hyperpigment ation of skin 05361754 (SNOMED CT) 06/17 Active 06/17 Dipesh Walker MD Hyperpigmentati on of skin Discoid lupus 958131552 (SNOMED CT) 01/21 Active 01/21 Ketan Rucker Discoid lupus erythematosus Hereditary or idiopathic neuropathy 274547794 (SNOMED CT) 09/18 Active 09/18 Ele Romano Neuropathy COPD 00736012 (SNOMED CT) 09/18 Active 09/18 Ele Romano Chronic obstructive pulmonary disease Smoking cessation counseling 610222493 (SNOMED CT) 05/21 Resolved 05/21 Ele Juan Antonio Procedure carried out on subject Adverse drug reaction 08790493 (SNOMED CT) 08/06 Resolved 08/06 Ele Juan Antonio Adverse reaction to drug Knee, right, subsequent encounter, infection/in flammatory reaction due to internal joint prosthesis T84.53xD (ICD-10-CM ) 05/19 Active 05/19 Ele Juan Antonio Infection and inflammatory reaction due to internal right knee prosthesis, subsequent encounter Myositis 85442403 (SNOMED CT) 08/06 Resolved 08/06 Ele Juan Antonio Myositis Nicotine dependence, cigarettes F17.210 (ICD-10-CM ) 05/21 Active 05/21 Ele Juan Antonio Nicotine dependence, cigarettes, uncomplicated Staphylococc al septic arthritis, right knee (identify type of staph) M00.061 (ICD-10-CM ) 06/25 Active 06/25 Ele Juan Antonio Staphylococcal arthritis, right knee Adverse drug reaction 31213245 (SNOMED CT) 08/06 Removed 08/06 Dipesh Walker MD Adverse reaction to drug Myositis 11772763 (SNOMED CT) 08/06 Removed 08/06 Dipesh Walker MD Myositis Staphylococc al infection 08424426 (SNOMED CT) 06/25 Active 06/25 Dipesh Walker MD Staphylococcal infectious disease Septic arthritis, right knee 12481876 (SNOMED CT) 06/25 Inactive 06/25 Dipesh Walker MD Bacterial arthritis Tobacco abuse 72563472 (SNOMED CT) 05/21 Inactive 05/21 Dipesh Walker MD Tobacco dependence syndrome Smoking cessation counseling 568024122 (SNOMED CT) 05/21 Removed 05/21 Dipesh Walker MD Procedure carried out on subject Effusion, right knee M25.461 (ICD-10-CM ) 05/19 Active 05/19 Ele Juan Antonio Effusion, right knee Benign Essential Hypertension 77213593 (SNOMED CT) 05/19 Active 05/19 Ele Romano Benign hypertension Knee, right, initial encounter(s) , infection/in flammatory reaction due to internal joint prosthesis T84.53xA (ICD-10-CM ) 05/19 Inactive 05/19 Ele Romano Infection and inflammatory reaction due to internal right knee prosthesis, initial encounter Cellulitis of RLE 772543287 (SNOMED CT) 05/19 Active 05/19 Ele Romano Cellulitis of lower limb Medications Medication Instructions Start Date Stop Date Generic Name NDC Provider HYDROXYCHLOROQUINE SULFATE 200 MG TABS 1 tab oral twice daily 06/17 hydroxychloroquine 33170535181 Ketan Rucker MINOCYCLINE HCL 100 MG CAPS Take 1 capsule by mouth twice a day 01/21 minocycline 55328570770 Dipesh Walker MD DOXYCYCLINE HYCLATE 100 MG CAPS Take 1 capsule by mouth twice a day 09/24 doxycycline hyclate 98864281394 Dipesh Walker MD ASPIRIN EC 81 MG TBEC 1q12h aspirin 94395287197 [facility] DOXYCYCLINE MONOHYDRATE 100 MG CAPS 1bid doxycycline monohydrate 99571145364 Braden Bennett FOLIC ACID 1 MG TABS 1qd folic acid 59728021096 [facility] MELOX[facility] 15 MG TABS 1qd,wm meloxicam 41022372375 [facility] ONDANSETRON HCL 4 MG TABS 1q6h,prn ondansetron hcl 55273412249 Braden Bennett OXYCODONE HCL 5 MG TABS 1q4h,prn oxycodone 67263260030 Braden Bennett PANTOPRAZOLE SODIUM 40 MG TBEC 1am pantoprazole 12710528796 Braden Bennett TAMSULOSIN HCL 0.4 MG CAPS 1hs tamsulosin 46498379278 Braden Bennett TRAMADOL HCL 50 MG TABS 1q8h,prn tramadol 63076694416 Braden Linkenship VANCOMYCIN HCL IN NACL 1-0.9 GM/250ML-% SOLN Vancomycin 1.5GM IV Q24hrs at 9amStat labs prior to appt (ensure his appt and timing of dos coincide) 08/27 vancomycin in 0.9 % sodium chl 97459123278 Jennyfer Beasley VANCOMYCIN HCL IN NACL 1-0.9 GM/250ML-% SOLN Vancomycin 1.5GM IV Q24hrs at 9amStat labs prior to appt (ensure his appt and timing of dos coincide) 08/27 vancomycin in 0.9 % sodium chl 63613667855 Ileana Moon VANCOMYCIN HCL IN NACL 1-0.9 GM/250ML-% SOLN Vancomycin 1GM IV R43Afao labs prior to appt (ensure his appt and timing of dos coincide) 08/11 vancomycin in 0.9 % sodium chl 85854724939 Elizabeth Romero RN LEVOFLOXACIN 500 MG TABS once a day levofloxacin 22837652884 Ileana Vasquezo r Tylenol unspecified unspecified 500 mg PRN acetaminophen 42425585051 Ileana Mi nor FOLIC ACID 0.8 MG CAPS once a day 1 mg folic acid 24701031821 Ileana Minor THIAMINE HCL 100 MG TABS 1 tab oral daily thiamine hcl (vitamin b1) 43260025304 Ketan Ruckre FUROSEMIDE 40 MG TABS 1 tab oral daily furosemide 03931963863 Ketan Rucker ALBUTEROL SULFATE HFA 108 (90 Base) MCG/ACT AERS 2 puff inhale qid prn albuterol sulfate 29415443257 Ketan Rucker IBUPROFEN 800 MG TABS 1 tab oral 3 times daily ibuprofen 71742784085 Ketan Rucker PERIDEX 0.12 % SOLN 10ml oral 2 times a day chlorhexidine gluconate 69088890263 Ketan Rucker NIFEDIPINE ER 30 MG [id number] 1 tab oral daily nifedipine 08787478578 Ketan Rucker gabapentin 600 mg tablet extended release 24 hr 1 tab oral 3 times daily gabapentin Ketan Rucker HYDROXYCHLOROQUINE SULFATE 200 MG TABS 1 tab oral twice daily 11/07 hydroxychloroquine 61219641014 Ketan Rucker LORAZEPAM 0.5 MG TABS 1 tab oral 3 times daily lorazepam 10008833191 Ketan Rucker OMEPRAZOLE 20 MG CPDR 1 cap orally once daily omeprazole 37207914343 Ketan Rucker Medications Administered No information available. [...] Name Date Entry Date CPT-sl STAT Labs [id number] CBC with Differential 2023 CPT-86491 CMP CPT-95018 C- reactive protein CPT-53502 Sedimentation Rate (ESR) 08/11/27 CPT-sl STAT Labs CPT-sl STAT Labs CPT-sl STAT Labs CPT-sl STAT Labs CPT-91539 CMP [id number] CBC with Differential 2022 CPT-88790 C- reactive protein CPT-26870 Sedimentation Rate (ESR) 202 07/14/05 CPT-sl STAT Labs CPT-sl STAT Labs CPT-55846 CMP [id number] CBC with Differential 2022 CPT-85507 C- reactive protein CPT-65574 Vancomycin Trough CPT-sl STAT Labs CPT-sl STAT Labs CPT-68972 CMP [id number] CBC with Differential 2022 CPT-02947 C- reactive protein [id number], [id number] CPK CPT-56922 Sedimentation Rate (ESR) 202 07/12/03 CPT-60760 Vancomycin Trough CPT-sl STAT Labs CPT-sl STAT Labs CPT-96638 CMP CPT-98818 Sedimentation Rate (ESR) 202 07/09/11 CPT-92980 C- reactive protein [id number] CBC with Differential 2022 CPT-sl STAT Labs [...]
--- OUTSIDE RECORDS SUMMARY | 2025-01-11 15:53 | XMS_ITS | Clinical Summary ---
Author Organization [facility] Address [address] [place] [address] Care Team Providers Care Revenue Liaison Name Role Phone Dario Nugent MD Primary Care Provider [phone] Allergies Active Allergy Reactions Criticality Noted Date [...] UKY-Zoster Vaccines (2 of 2) 07/31/2021 06/05/2021 [id number] Vaccine (4 - season) 2024 03/05/2021, 08/02/2020, [...] patient's age to complete this topic Insurance [facility] [place] [address] Care Teams Revenue Liaison Relationship Specialty Start Date End Date Dario Nugent MD [address] [place] [address] PCP - General 09/20/20
--- OUTSIDE RECORDS SUMMARY | 2025-01-11 15:53 | XMS_ITS | Clinical Summary ---
Author Organization [facility] Address [address] [place] [address] Care Team Providers Care Home Care Aide Name Role Phone Dario Nugent MD Primary Care Provider [phone] Allergies Active Allergy Reactions Criticality Noted Date [...] 06/06/2028 019 Medical Devices Implanted Type Area Mock Up Maker Device Identifier Shelf Expiration Date Model / Serial / Lot Dev Contrl Tiss Stratafix Spiral Pdo Bidir 1 [id number] - [id number] Implanted:Qty : 1 on 07/16/2022 by Gomez Stratton MD at [facility] Implant Right: Knee [employer] J 08/07/2026 [id number] / / [id number] [facility] Bone Simplex/P Full Dose 10/Pk - [id number] Implanted:Qty : 1 on 07/16/2022 by Gomez Stratton MD at [facility] Implant Right: Knee CHUCK LILO 06/09/2024 [id number] / / [id number] Cmt Bone Simplex/P Full Dose 10/Pk - [id number] Implanted:Qty : 1 on 07/16/2022 by Gomez Stratton MD at [facility] Implant Right: Knee CHUCK LIOL 10/07/2024 [id number] / / [id number] Cmt Bone Simplex/P Full Dose 10/Pk - [id number] Implanted:Qty : 1 on 07/16/2022 by Gomez Strtaton MD at [facility] Implant Right: Knee CHUCK LILO 11/06/2024 [id number] / / [id number] Cmt Bone Simplex/P Full Dose 10/Pk - [id number] Implanted:Qty : 1 on 07/16/2022 by Gomez Stratton MD at [facility] Implant Right: Knee CHUCK LILO 11/06/2024 [id number] / / [id number] Insrt Tib/Kn Triathlon Condy/Stbl A/Poly Sz5 13mm - [id number] Implanted:Qty : 1 on 07/16/2022 by Gomez Stratton MD at [facility] Implant Right: Knee CHUCK LILO 08/29/2025 [id number] / / [id number] Comp Fem Triath Cr No6 Rt - [id number] Implanted:Qty : 1 on 07/16/2022 by Gomez Stratton MD at [facility] Implant Right: Knee CHUCK LILO 03/09/2027 [id number] / / [id number] Cmt Bone Simplex/P Tmycin Fdos 10pk - [id number] Implanted:Qty : 1 on 09/16/2022 by Gomez Stratton MD at [facility] Implant Right: Knee CHUCK LILO [id number] 02/07/2024 [id number] / / [id number] Cmt Bone Simplex/P Tmycin Fdos 10pk - [id number] Implanted:Qty : 1 on 09/16/2022 by Gomez Stratton MD at [facility] Implant Right: Knee CHUCK LILO [id number] 12/08/2023 [id number] / / [id number] Cmt Bone Simplex/P Tmycin Fdos 10pk - [id number] Implanted:Qty : 1 on 09/16/2022 by Gomez Stratton MD at [facility] Implant Right: Knee CHUCK LILO 02/07/2024 [id number] / / [id number] Wax Bone Hemo Aesculap 2.5gm - [id number] Implanted:Qty : 1 on 09/16/2022 by Gomez Stratton MD at [facility] Implant Right: Knee [employer] [id number] 10/07/2026 [id number] / / [id number] Comp Fem Triath Ts Sz5 Rt - [id number] Implanted:Qty : 1 on 09/16/2022 by Gomez Stratton MD at [facility] Implant Right: Knee CHUCK LILO [id number] 02/03/2025 [id number] / / [id number] Aug Fem/Kn Triathlon Totlstbl Dist Sz5 10mm Rt - [id number] Implanted:Qty : 1 on 09/16/2022 by Gomez Stratton MD at [facility] Implant Right: Knee CHUCK LILO [id number] 06/08/2026 [id number] / / [id number] Baseplt Tib Triath Ts No4 - [id number] Implanted:Qty : 1 on 09/16/2022 by Gomez Stratton MD at [facility] Implant Right: Knee CHUCK LILO [id number] 02/26/2027 [id number] / / [id number] Aug Tib/Kn Triath /2blck Rm/Ll Sz 4 5mm - [id number] Implanted:Qty : 1 on 09/16/2022 by Gmoez Stratton MD at [facility] Implant Right: Knee CHUCK LILO [id number] 01/05/2027 [id number] / / [id number] Aug Tib/Kn Triath 1/2blck Rl/Lm Sz4 5mm - [id number] Implanted:Qty : 1 on 09/16/2022 by Gomez Stratton MD at [facility] Implant Right: Knee CHUCK LILO [id number] 10/16/2026 [id number] / / [id number] Plug Bone Restr/Cmt W/Hndl Univ 30mm Lg - [id number] - [id number] Implanted:Qty : 1 on 09/16/2022 by Gomez Stratton MD at [facility] Implant Right: Knee CHUCK LILO [id number] 06/09/2027 [id number] / [id number] / [id number] Aug Cone Tib/Kn Triathlon Rev Symm Szb - [id number] Implanted:Qty : 1 on 09/16/2022 by Gomez Stratton MD at [facility] Implant Right: Knee CHUCK LILO [id number] 12/21/2026 [id number] / / [id number] Stem Fem Triath Cmt 02t08tk - [id number] Implanted:Qty : 1 on 09/16/2022 by Gomez Stratton MD at [facility] Implant Right: Knee CHUCK LILO [id number] 07/13/2027 [id number] / / [id number] Ext Stem Triath Kn Totl Cocr Flut 66p84dn - [id number] Implanted:Qty : 1 on 09/16/2022 by Gomez Stratton MD at [facility] Implant Right: Knee CHUCK LILO [id number] 05/19/2027 [id number] / / [id number] Plug Bone Restr/Cmt W/Hndl Univ 24mm Md - [id number] - [id number] Implanted:Qty : 1 on 09/16/2022 by Gomez Stratton MD at [facility] Implant Right: Knee CHUCK LILO [id number] 05/14/2027 [id number] / [id number] / [id number] Aug Fem/Kn Triathlon Totlstbl Dist Sz5 10mm Rt - [id number] Implanted:Qty : 1 on 09/16/2022 by Gomez Stratton MD at [facility] Implant Right: Knee CHUCK LILO [id number] 06/01/2027 [id number] / / [id number] Aug Fem/Kn Triathlon Post Sz5 10mm - [id number] Implanted:Qty : 1 on 09/16/2022 by Gomez Stratton MD at [facility] Implant Right: Knee CHUCK LILO [id number] 06/22/2027 [id number] / / [id number] Aug Fem/Kn Triathlon Post Sz5 10mm - [id number] Implanted:Qty : 1 on 09/16/2022 by Gomez Stratton MD at [facility] Implant Right: Knee CHUCK LILO [id number] 06/22/2027 [id number] / / [id number] Cone Aug Fem/Kn Triathlon Gh1wcy9 Rt - [id number] Implanted:Qty : 1 on 09/16/2022 by Gomez Stratton MD at [facility] Implant Right: Knee CHUCK LILO [id number] 02/15/2027 [id number] / / [id number] Ext Stem Triath Kn Totl Cocr Flut 12d12vr - [id number] Implanted:Qty : 1 on 09/16/2022 by oGmez Stratton MD at [facility] Implant Right: Knee CHUCK LILO [id number] 05/18/2027 [id number] / / [id number] Stem Fem Triath Cmt 26e62rc - [id number] Implanted:Qty : 1 on 09/16/2022 by Gomez Stratton MD at [facility] Implant Right: Knee CHUCK LILO [id number] 05/31/2027 [id number] / / [id number] Insrt Tib Triath X3 Totl Stbl Sz4 13 - [id number] Implanted:Qty : 1 on 09/16/2022 by Gomez Stratton MD at [facility] Implant Right: Knee CHUCK LILO [id number] 12/03/2026 [id number] / / [id number] Dev Contrl Tiss Stratafix Spiral Pdo Bidir 1 29a83lk - [id number] Implanted:Qty : 1 on 09/16/2022 by Gomez Stratton MD at [facility] Implant Right: Knee [employer] FLAVIO [id number] 05/09/2027 [id number] / / [id number] Cmt Bone Simplex/P Tmycin Fdos 10pk - [id number] Implanted:Qty : 1 on 09/16/2022 by Gomez Stratton MD at [facility] Implant Right: Knee CHUCK LILO [id number] 02/07/2024 [id number] / / [id number] Insurance [facility] MEDICARE ADVANTAGE PPO Advance Directives * [...] Of Support Discussed With: Patient Care Teams Home Care Aide Relationship Specialty Start Date End Date Dario Nugent MD [address] [facility] [address] [place] [address] PCP - General Family Medicine 07/14/22
--- OUTSIDE RECORDS SUMMARY | 2025-01-11 15:54 | XMS_ITS | Patient Health Record ---
Author Organization [facility] Address [address] [place] [id number] Care Team Providers Care Handle Turner Name Role Phone Elif Nugent Primary Care Provider Stuart Carlos A Unavailable [phone] CrossAyanaBee Unavailable [phone] JamesDenisha story Unavailable [phone] Allergies No Known Allergies Results Component Value [...] Interpretation: Performing Lab: Notes/Report: Test performed by [facility] [address] [place] [address] , [address], [place] [address] Jordan Trammell MD, Plate Straightener CLIA: [id number] Polychromasia Slight Macrocytosis Moderate Poikilocytosis Marked Anisocytosis [...] 74 Performing Lab: Notes/Report: Test performed by [facility] [address] [place] [address] , [address], [place] [address] Jordan Trammell MD, Plate Straightener CLIA: [id number] WBC 2.3 3.8-11.5 K/uL Red Blood Cell [...] 19 Performing Lab: Notes/Report: Test performed by [facility] [address] [place] [address] , [address], [place] [address] Jordan Trammell MD, Plate Straightener CLIA: [id number] Sodium 135 135-145 mmol/L Potassium 4.4 3.5-5.3 [...] times a day; Duration: 30 day(s) Active Furosemide 40 MG Take 1 tablet by gabriela th once daily; Duration: 90 Active Pantoprazole Sodium 20 MG Take 1 [...] once a day; Duration: 30 day(s) Active Immunizations [...] 01/01/2025 Encounters Encounter Location Date Provider Diagnosis [facility] [address] [place] [address] [place] [id number] 03/02/2024 Elif Nugent Essential hypertensi on I10 ; Centrilobular emphysema J43.2 ; Benign prostatic hyperplasia without lower urinary tract symptoms N40.0 ; Status post right knee replacement Z96.651 ; 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 and Lupus erythematosus L93.0 [facility] [address] [place], [place] [id number] 06/02/2024 Elif Nugent Essential hypertensi on I10 ; Anxiety F41.9 ; Centrilobular emphysema J43.2 ; Status post left knee replacement Z96.652 ; Status post right knee replacement Z96.651 ; Lupus erythematosus L93.0 and Pharyngitis, unspecified etiology J02.[address] [place] [id number] 10/23/2024 Elif Nugent Closed fracture of distal end of femur with routine healing, unspecified fracture morphology, unspecified laterality, subsequent encounter S72.409D ; Localized edema R60.0 and Systemic lupus erythematosus, unspecified SLE type, unspecified organ involvement status M32.[address] [place] [id number] 11/13/2024 Elif Nugent 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 ; Lupus erythematosus L93.0 ; Other chronic pain G89.29 ; Anxiety F41.9 ; Other chronic pain G89.29 and BMI 25.0-25.9,adult Z68.25 [facility] [address] [place], [place] [id number] 01/01/2025 Bee Cross At high risk for fal ls Z91.81 ; Fall W19.XXXA ; Continuous tobacco abuse Z72.0 and Adult failure to thrive R62.7 [facility] [address] [place], [place] [id number] 01/12/2024 J Cosme Nugent Other chronic pain G89.29 [facility] [address] [place], [place] [id number] 01/20/2024 J Cosme Nugent Anxiety F41.9 [facility] [address] [place] [id number] 03/07/2024 J Cosme Nugent [facility] [address] [place] [id number] 04/28/2024 Carlos A Webster Anxiety F41.9 [facility] [address] [place], [place] [id number] 05/30/2024 J Cosme Nugent Anxiety F41.9 [facility] [address] [place] [id number] 06/02/2024 J Cosme Nugent [facility] [address] [place] [id number] 08/04/2024 J Cosme Nugent Anxiety F41.9 [facility] [address] [place] [id number] 08/21/2024 J Cosme Nugent [facility] [address] [place] [id number] 09/26/2024 J Cosme Nugent [facility] [address] [place] [id number] 09/29/2024 Elif Nugent [facility] [address] [place] [id number] 10/24/2024 J Cosme Nugent [facility] [address] [place] [id number] 10/26/2024 Elif Nugent [facility] [address] [place] [id number] 10/26/2024 Elif Nugent [facility] [address] [place] [id number] 10/31/2024 Elif [facility] [address] [place] [id number] 11/09/2024 Elif Nugent [facility] [address] [place] [id number] 12/04/2024 Elif Nugent Assessments Encounter Date Diagnosis (ICD Code) Assessment Notes Treatment Notes Treatment Clinical Notes Section Notes 01/12/2024 Other chronic pain (ICD-10 - G89.29) [...] will continue with PT next week 01/01/2025 Continuous tobacco abuse (ICD-10 - Z72.0) discussed cessation with changes of behavior 11/13/2024 Other chronic pain (ICD-10 - G89.29) 10/23/2024 Systemic lupus erythematosus, unspecified SLE type, unspecified organ involvement status (ICD-10 - M32.9) 03/02/2024 Benign prostatic hyperplasia without lower urinary tract symptoms (ICD-10 - N40.0) 06/02/2024 Centrilobular emphysema (ICD-10 - J43.2) 03/02/2024 Status post right knee replacement (ICD-10 - Z96.651) 06/02/2024 Status post left knee replacement (ICD-10 - Z96.652) 11/13/2024 Anxiety (ICD-10 - F41.9) 01/01/2025 Adult failure to thrive (ICD-10 - R62.7) Discussed replacing beer with Boost; Boost of any flavor 3 x daily 11/13/2024 Other chronic pain (ICD-10 - G89.29) [...] [address], [place], [place], [id number], Insurance Providers Payer Name Payer Address Payer Phone Subscriber Number Group Number Insured Name Patient Relationship to Insured Coverage Start Date Coverage End Date [employer] (MEDICAR E) [address] [address] [place] [address] [id number] ROHAN COWART Self - patient is the [...] left knee replacement surgery, Dr. Jose clarke, [facility] 09/05/2018 right knee replacement surgery, Dr. Sree wisdom [facility] 12/05/2018 EGD with biopsy 11/2012 Revision of right knee repla cement with Explant antibiotic spacer, Dr Stratton 07/16/22 Left periprosthetic femur fracture Hospitalization History Reason Date(Month/Year) [facility] - mikaela 04/2020 [facility] ER - fall/colitis 06/13/2019 blacked out at home and was taken to [facility] ER and admitted 10/2011
== END 2025-01-11 23:59 | disposition home or self-care (01) ==
LOC: RAD 15:51
PROVIDERS: Visit Provider Internal Medicine Pulmonary Disease
DX: R91.1 Solitary pulmonary nodule (principal); Z12.2 Encounter for screening for malignant neoplasm of respiratory organs; F17.210 Nicotine dependence, cigarettes, uncomplicated
CPT/HCPCS: 71271

== ENCOUNTER 2025-02-01 17:00 | Outpatient (RCR) | payer MEDICARE, SELFPAY ==
--- NOTE | 2025-01-22 16:37 | HMH.RHREAS ---
Rehab Reassessment Rehab OP Re-assessment Start: 01/22/25 15:58 Freq: Status: Active Protocol: Document 01/22/25 16:27 PHORNE (Rec: 01/22/25 16:37 PHORNE [id number]) E-signed By Kurtis Jacob, PT Lower Extremity Functional Index Activities Today, do you or would you have any difficulty at all with: a.Any of your usual Moderate difficulty work, housework or school activities b. Your usual Quite a bit of difficulty hobbies, recreational or sporting activities c. Getting into or Moderate difficulty out of the bath d. Walking between Moderate difficulty rooms e. Putting on your A little bit of difficulty shoes or socks f. Squatting Quite a bit of difficulty g. Lifting an object A little bit of difficulty , like a bag of groceries from the floor h. Performing light Moderate difficulty activities around your home i. Performing heavy Quite a bit of difficulty activities around your home j. Getting into or Moderate difficulty out of a car k. Walking 2 blocks Quite a bit of difficulty l. Walking a mile Extreme difficulty or unable to perform activity m. Going up or down Quite a bit of difficulty 10 stairs (about 1 flight of stairs) n. Standing for 1 Quite a bit of difficulty hour o. Sitting for 1 No difficulty hour p. Running on even Extreme difficulty or unable to perform activity ground q. Running on uneven Extreme difficulty or unable to perform activity ground r. Making sharp Extreme difficulty or unable to perform activity turns while running fast s. Hopping Extreme difficulty or unable to perform activity t. Rolling over in No difficulty bed LEFI Score Lower Extremity 30 Functional Index Score Rehab Re-assessment Subjective Subjective Pt reports he has been unable to attend any therapy sessions for > 1 mo due to a fall he suffered several weeks ago with resulting rib fxs. He states, I broke four ribs and I lost a lot of the strength you had helped me build up. He reports no c/o pain in his L LE at this time. Objective Objective Notes AROM L knee: 0-120 deg MMT L LE: HIP FLEX 4/5, HIP ABD 44/5, KNEE EXT 4+/5, KNEE FLEX 5/5 TU sec this date vs 30 sec on IE Pain: 0/10 this date. Assessment Progress Assessment Progressing as Expected Assessment Notes Pt continues to steadily improve L LE strength, but ambulation and dynamic standing balance remain decreased. Skilled therapy remains indicated in order to improve ambulation, increase strength, and improve balance in standing in order to aid pt return PLOF and improved QOL. PT Patient Goals PT Short Term in 2 wks pt will: Patient Goals 1) Improve TUG time to 17 sec or less 2) Increase L LE MMT to at least 4+/5 throughout 3) Increase LEFS score to 35 or greater PT Nursing Home Patient in 4 wks pt will: Goals 1) Improve TUG time to 14 sec or less 2) Increase L LE MMT to 5/5 throughout 3) Increase LEFS score to 45 or greater Plan Plan Updated POC sent to provider for their continued input and approval. Continued pt treatment may include any or all of the following interventions in order to improve functional outcomes and aid pt improvement in QOL: Frequency of Therapy 2 x/wk Duration of Therapy 4 wks Therapeutic Exercise Yes Including Home Exercise Program Manual Therapy Yes Techniques Neuromuscular Re- Yes education Therapeutic Yes Activities to Return to Previous Functional/Work Level Gait Training Yes ADL/Self Care Yes Education Orthotics/Bracing/ Yes Splinting Massage Yes Eval/Re-Eval Yes Time and Billing Re-Eval Time 16 Re-Eval Billing 0 Units Charge for PT No reassessment? PHYSICIAN CERTIFICATION: I certify the specified therapy services for Christian Castorena are required, authorized, and reviewed every 30 days.
== END 2025-02-01 23:59 | disposition home or self-care (01) ==
LOC: PT 17:00
PROVIDERS: PCP Family Medicine; Visit Provider Family Medicine
DX: I10 Essential (primary) hypertension (principal); R60.9 Edema, unspecified
CPT/HCPCS: 97116; 97530